=== PATIENT | male | born 1950 | race Hispanic/Latino ===

== ENCOUNTER 2016-04-29 01:14 | Inpatient (IN) | payer MEDICARE, OTHER ==
[2016-04-29 01:26] VITALS: BMI 33.5
--- NOTE | 2016-04-29 01:37 | ED PDOC ---
Arrival/HPI - General Chief Complaint: Weakness/Neurological Deficit Time Seen by Provider: 04/29/16 01:16 Historian: Patient - History of Present Illness Narrative History of Present Illness (Text): 04/29/16 01:37 Saad Ackerman is a 65 year old male, whose past medical history includes hypertension, diabetes, bladder cancer, and pancreatic cancer, who presents to the ED brought in by EMS accompanied by complaining of generalized weakness. Patient reports tonight he has been experiencing generalized weakness with associated watery diarrhea. notes yesterday patient fell at home while walking, but denies any loss of consciousness, fever, or chills. Patient also denies any chest pain, shortness of breath, abdominal pain, nausea, vomiting, urinary symptoms, back pain, neck pain, headache, dizziness, or any other complaints. Time/Duration: 24 hours (yesterday) Symptom Onset: Gradual Symptom Course: Unchanged Activities at Onset: Rest, Light Context: Home Past Medical History - Provider Review Nursing Documentation Reviewed: Yes - Infectious Disease Hx of Infectious Diseases: None - Cardiac Hx Hypertension: Yes - Neurological HX Cerebrovascular Accident: Yes - Endocrine/Metabolic Hx Diabetes Mellitus Type 2: Yes - Hematological/Oncological Hx Cancer: Yes (Bladder & Pancreatic CA) - Genitourinary/Gynecological Hx Bladder Cancer: Yes Other/Comment: + Urinary Catheter - Psychiatric Hx Substance Use: No - Anesthesia Hx Anesthesia: Yes Hx Anesthesia Reactions: No Hx Malignant Hyperthermia: No Family/Social History - Physician Review Nursing Documentation Reviewed: Yes Family/Social History: No Known Family HX Smoking Status: Former Smoker Hx Alcohol Use: Yes Frequency of alcohol use: Socially Hx Substance Use: No Allergies/Home Meds Allergies/Adverse Reactions: Allergies pcn Allergy (Uncoded 04/29/16 01:42) DIZZINESS Home Medications: Home Meds Medication Instructions Recorded Confirmed Amlodipine/Valsartan/Hcthiazid 1 tab PO DAILY 04/29/16 04/29/16 [[id number] 5-160-12.5 mg] MetFORMIN [glucoPHAGE] 1 tab PO BID 04/29/16 04/29/16 Review of Systems - Physician Review All systems were reviewed & negative as marked: Yes - Review of Systems Constitutional: Other (+generalized weakness). absent: Fevers Eyes: Normal ENT: Normal Respiratory: Normal. absent: SOB, Cough Cardiovascular: Normal. absent: Chest Pain Gastrointestinal: Diarrhea Genitourinary Male: Normal. absent: Dysuria, Frequency, Hematuria, Urinary Output Changes Musculoskeletal: Normal. absent: Back Pain, Neck Pain Skin: Normal. absent: Rash Neurological: Normal. absent: Headache, Dizziness Endocrine: Normal Hemo/Lymphatic: Normal Psychiatric: Normal Physical Exam Vital Signs Reviewed: Yes Vital Signs Temp Pulse Resp BP Pulse Ox 04/29/16 05:33 98 H 20 106/49 L 100 04/29/16 03:00 97.4 F L 124 H 26 H 112/68 90 L Temperature: Afebrile Blood Pressure: Normal Pulse: Regular Respiratory Rate: Normal Appearance: Positive for: Well-Appearing, Non-Toxic, Comfortable Pain Distress: None Mental Status: Positive for: Alert and Oriented X 3 - Systems Exam Head: Present: Atraumatic, Normocephalic Pupils: Present: PERRL Extroacular Muscles: Present: EOMI Conjunctiva: Present: Normal Ears: Present: Normal, NORMAL TM, Normal Canal. No: Erythema Mouth: Present: Dry Neck: Present: Normal Range of Motion Respiratory/Chest: Present: Clear to Auscultation, Good Air Exchange. No: Respiratory Distress, Accessory Muscle Use Cardiovascular: Present: Tachycardic Abdomen: Present: Normal Bowel Sounds. No: Tenderness, Distention, Peritoneal Signs Back: Present: Normal Inspection Upper Extremity: Present: Other (Avulsed nail to left thumb). No: Cyanosis, Edema Lower Extremity: Present: Normal Inspection. No: Edema Neurological: Present: GCS=15, CN II-XII Intact, Speech Normal Skin: Present: Warm, Dry, Pale. No: Rashes Psychiatric: Present: Alert, Oriented x 3, Normal Insight, Normal Concentration Medical Decision Making ED Course and Treatment: 04/29/16 01:37 Impression: 65 y/o male c/o generalized weakness and diarrhea since yesterday. Pt also report a mechanical fall yesterday, no LOC. Plan: -- EKG -- CT Head w/o contrast -- Labs, cardiac enzymes, lipase -- UA -- Reassess and disposition Progress Notes: Reviewed EKG, sinus tachycardia at [address] bpm[address] Non-specific ST/T wave changes. 04/29/16 04:00 Reviewed labs, hemoglobin: 6.1, hematocrit: 19.1. Will order blood type and screen and transfuse pt 04/29/16 04:46 Reviewed radiology, Chest X-ray shows no active disease. 04/29/16 04:[address] Wyman, backup operator, who is aware and agrees with plan. Case discussed with Dr. Juan Francisco Mariano, who is aware and agrees with plan. Accepts pt in to his service. Pt will be admitted to the ICU for dehydration, renal failure , sepsis, anemia, and pancreatic/bladder cancer. 04/29/16 05:03 Lactate: 11.3, Code Sepsis called. 04/29/16 05:19 Case discussed with medical billing specialist zone manager, who is aware and agrees with plan. 04/29/16 05:[address] Buckley, covering for Dr. Delgado (pt's front end software engineer/ oncoloigist), who agrees with management. - Critical Care Critical Care Minutes: 60 minutes - Lab Interpretations Lab Results: 04/29/16 02:40 04/29/16 02:40 Lab Results 04/29/16 05:22: Urine Color Yellow, Urine Appearance Cloudy, Urine pH 8.5, Ur Specific [place] 1.015, Urine Protein 30 H, Urine Glucose (UA) Negative, Urine Ketones Negative, Urine Blood Large H, Urine Nitrate Negative, Urine Bilirubin Negative, Urine Urobilinogen 0.2, Ur Leukocyte Esterase Large H, Urine RBC 1 - 3 , Urine WBC 2 - 5, Ur Epithelial Cells 0 - 2, Urine Bacteria Many 04/29/16 04:00: pO2 40, VBG pH 7.23 L, VBG pCO2 27.0 L, VBG HCO3 11.3 L, VBG Total CO2 12.1 L, VBG O2 Sat (Calc) 64.0, VBG Base Excess -14.7 L, VBG Potassium 3.9, Sodium 134.0, Chloride 99.0, Glucose 112 H, Lactate 11.3 H*, FiO2 21.0, Venous Blood Potassium 3.9, Blood Type Pending, Antibody Screen Pending, BBK History Checked No verified bt 04/29/16 02:40: WBC 10.8 D, RBC 2.06 L, Hgb 6.1 L* D, Hct 19.1 L*, MCV 92.7, MCH 29.6, MCHC 31.9, RDW 20.6 H, Plt Count 41 L*, PT 14.4 H, INR 1.33 H, APTT 29.7, Sodium 135, Chloride 95 L, Potassium 3.9, Carbon Dioxide 12 L, Anion Gap 32 H, BUN 87 H, Creatinine 5.7 H, Est GFR ( Amer) 12, Est GFR (Non-Af Amer) 10, Random Glucose 129 H, Calcium 6.8 L*, Total Bilirubin 0.7, AST 106 H, ALT 41, Alkaline Phosphatase 447 H, Lactate Dehydrogenase 697, Total Creatine Kinase 2636 H, CK-MB (CK-2) 15.9 H, CK-MB (CK-2) % 0.6 L, Troponin I 0.11, Total Protein 5.7 L, Albumin 2.4 L, Globulin 3.3, Albumin/Globulin Ratio 0.7 L, Lipase 13 L I have reviewed the lab results: Yes - RAD Interpretation Radiology Orders: 04/29/16 01:40 HEAD W/O CONTRAST [CT] Stat 04/29/16 03:46 CHEST PORTABLE [RAD] Stat Facetor: ED Physician - EKG Interpretation Interpreted by ED Physician: Yes Type: 12 lead EKG - Medication Orders Current Medication Orders: Meropenem 1 gm/ Sodium (Chloride) 100 mls @ 100 mls/hr IVPB STAT STA PRN Reason: Protocol Stop: 04/29/16 06:22 Discontinued Medications Sodium Chloride 2,000 ml/ IV (SUPPLIES) 2,000 mls @ 6,722.22 mls/hr IV ONCE ONE PRN Reason: 60 ML/KG/HR Stop: 04/29/16 05:02 Last Admin: 04/29/16 05:26 Dose: 6,722.22 MLS/HR eMAR Start Stop Document 04/29/16 05:26 MR (Rec: 04/29/16 05:27 [id number]) Intravenous Solution Start Date 04/29/16 Start Time 05:26 End Date 04/29/16 End time 05:56 Total Infusion Time 30 Sodium Chloride (Sodium Chloride 0.9%) 1,000 mls @ 999 mls/hr IV .Q1H1M STA Stop: 04/29/16 05:00 Last Admin: 04/29/16 04:25 Dose: 999 MLS/HR eMAR Start Stop Document 04/29/16 04:25 MR (Rec: 02/26/17 05:25 MR [id number]) Intravenous Solution Start Date 04/29/16 Start Time 04:25 End Date 04/29/16 End time 05:25 Total Infusion Time 60 - Scribe Statement The provider has reviewed the documentation as recorded by the Lupis [place] Provider Attestation: All medical record entries made by the Scribjanine were at my direction and personally dictated by me. I have reviewed the chart and agree that the record accurately reflects my personal performance of the history, physical exam, medical decision making, and the department course for this patient. I have also personally directed, reviewed, and agree with the discharge instructions and disposition. Disposition/Present on Arrival - Present on Arrival Any Indicators Present on Arrival: No History of DVT/PE: No History of Uncontrolled Diabetes: No Urinary Catheter: No History of Decub. Ulcer: No History Surgical Site Infection Following: None - Disposition Have Diagnosis and Disposition been Completed?: Yes Diagnosis: Anemia, Dehydration, Sepsis, Pancreatic cancer, Bladder cancer, Renal insufficiency Disposition: HOSPITALIZED Disposition Time: 05:00 Patient Plan: Admission Patient Problems: Current Active Problems Problem Status Diagnosed Anemia Acute Bladder cancer Acute Dehydration Acute Pancreatic cancer Acute Renal insufficiency Acute Sepsis Acute Condition: GUARDED
[2016-04-29 02:51] LABS: MEAN CELL VOLUME 92.7 fL (80.0-105.0); MEAN CORPUSCULAR HEMOGLOBIN 29.6 pg (25.0-35.0); MEAN CORPUSCULAR HGB CONC 31.9 g/dl (31.0-37.0); RED CELL DISTRIBUTION WIDTH 20.6 % (11.5-14.5); WHITE BLOOD COUNT 10.8 10^3/ul (4.5-11.0)
[2016-04-29 02:59] LABS: HEMATOCRIT 19.1 % (42.0-52.0); PLATELET COUNT 41 10^3/uL (120.0-450.0)
[2016-04-29 03:03] LABS: INR 1.33 (0.93-1.08); PARTIAL THROMBOPLASTIN TIME 29.7 Seconds (23.7-30.8)
[2016-04-29 03:18] LABS: ALB/GLOB RATIO 0.7 (1.1-1.8); BILIRUBIN,TOTAL 0.7 mg/dL (0.2-1.3); POTASSIUM 3.9 mmol/L (3.6-5.0); TOTAL PROTEIN 5.7 g/dL (5.8-8.3)
[2016-04-29 03:29] LABS: TROPONIN I 0.11 ng/mL
[2016-04-29 03:35] LABS: CALCIUM 6.8 mg/dL (8.4-10.5)
[2016-04-29] MEDS ORDERED: Sodium Chloride 0.9% 1,000 ML IV STA (04:00)
[2016-04-29 04:28] LABS: VENOUS BLOOD GAS BASE EXCESS -14.7 mmol/L (0.0-2.0); VENOUS BLOOD PH 7.23 (7.32-7.43)
[2016-04-29] MEDS ORDERED: Meropenem 1 GM in Sodium Chloride 0.9% 100 ML IVPB STA (05:23)
[2016-04-29 05:49] LABS: PH,URINE 8.5 (4.7-8.0); URINE BILIRUBIN NEGATIVE (NEGATIVE); URINE BLOOD LARGE (NEGATIVE); URINE GLUCOSE (UA) NEGATIVE (NEGATIVE); URINE KETONE NEGATIVE (NEGATIVE); URINE LEUKOCYTE ESTERASE LARGE Leu/uL (NEGATIVE); URINE PROTEIN 30 mg/dL (<30 mg/dL); URINE UROBILINOGEN 0.2 E.U./dL (<1 E.U./dL)
[2016-04-29 05:56] LABS: URINE APPEARANCE CLOUDY (CLEAR); URINE COLOR YELLOW (YELLOW)
[2016-04-29 06:01] LABS: URINE EPITHELIAL CELLS 0 - 2 /hpf (0-5)
[2016-04-29 06:02] LABS: URINE BACTERIA MANY (NEG)
[2016-04-29 07:47] LABS: VENOUS BLOOD GAS BASE EXCESS -13.8 mmol/L (0.0-2.0); VENOUS BLOOD PH 7.22 (7.32-7.43)
--- NOTE | 2016-04-29 08:56 | CP.PCM.CON ---
<Brannon Greenberg - Last Filed: 04/29/16 10:37> History of Present Illness - History of Present Illness History of Present Illness: ICU Consult Note for Dr. Jeffrey 65 y/o M with PMH of Pancreatic Ca, Bladder Cancer, HTN, and DM presents to the ED for a 3 day history of generalized weakness and fatigue. Pt was initially brought in by his . Pt states he recently underwent chemotherapy and radiation in on 04/13. Pt also reports having a abdomen/pelvis CT with IV and oral contrast on 04/26. Pt states he began feeling weak 3 days ago at home. During this time he admits to decrease in oral intake. After speaking with the patients , she reports the patient falling down 3 days ago and being too weak to get up. Over the past several days before this fall, pt's admits to pt feeling well, with no complaints and weakness. Pt has also had decreased urine output over the past several days. Pt's called the oncologist, Dr. Delgado, who recommended the pt be brought to the hospital if he did not improve over the next several days. Pt also has had multiple episodes of diarrhea over the past few months, but has become worse since his CT scan last week. Denies CP , SOB, Nausea, vomiting, fevers, chills. PMH: As stated above Surgical Hx: Pancreatic surgery Social Hx: Former smoker, denies alcohol or illicit drug use. Allergies: Penicillin Medications: Metformin, Combination of amlodipine, valsartan, HCTZ Review of Systems - Review of Systems Review of Systems: As per HPI Past Patient History - Infectious Disease Hx of Infectious Diseases: None - Past Social History Smoking Status: Former Smoker - CARDIAC Hx Hypertension: Yes - NEUROLOGICAL HX Cerebrovascular Accident: Yes - ENDOCRINE/METABOLIC Hx Diabetes Mellitus Type 2: Yes - HEMATOLOGICAL/ONCOLOGICAL Hx Cancer: Yes (Bladder & Pancreatic CA) - GENITOURINARY/GYNECOLOGICAL Hx Bladder Cancer: Yes Other/Comment: + Urinary Catheter - PSYCHIATRIC Hx Substance Use: No - SURGICAL HISTORY Hx Surgeries: No - ANESTHESIA Hx Anesthesia: Yes Hx Anesthesia Reactions: No Hx Malignant Hyperthermia: No Meds Allergies/Adverse Reactions: Allergies Allergy/AdvReac Type Severity Reaction Status Date / Time pcn Allergy DIZZINESS Uncoded 04/29/16 01:42 Physical Exam - Constitutional Appears: Non-toxic, No Acute Distress - Head Exam Head Exam: ATRAUMATIC, NORMAL INSPECTION, NORMOCEPHALIC - Eye Exam Eye Exam: EOMI, Normal appearance - ENT Exam ENT Exam: Mucous Membranes Dry - Neck Exam Neck exam: Positive for: Normal Inspection. Negative for: Lymphadenopathy - Respiratory Exam Respiratory Exam: Clear to Auscultation Bilateral, NORMAL BREATHING PATTERN. absent: Rhonchi, Wheezes - Cardiovascular Exam Cardiovascular Exam: Tachycardia, +S1, +S2 - GI/Abdominal Exam GI & Abdominal Exam: Normal Bowel Sounds, Soft. absent: Tenderness - Extremities Exam Extremities exam: Positive for: pedal edema. Negative for: calf tenderness Additional comments: Chronic stasis dermatitis changes b/l lower extremities - Neurological Exam Neurological exam: Alert, CN II-XII Intact, Oriented x3 - Psychiatric Exam Psychiatric exam: Normal Affect, Normal Mood - Skin Skin Exam: Dry, Intact, Normal Color, Warm Results - Vital Signs Recent Vital Signs: Last Vital Signs Temp 97.9 F 04/29/16 08:26 Pulse 103 H 04/29/16 08:26 Resp 22 04/29/16 08:26 BP 92/48 L 04/29/16 08:26 Pulse Ox 100 04/29/16 07:22 - Labs Result Diagrams: 04/29/16 02:40 04/29/16 02:40 Labs: Laboratory Results - last 24 hr 04/29/16 07:39 pO2 53 VBG pH 7.22 L VBG pCO2 31.0 L VBG HCO3 12.7 L VBG Total CO2 13.7 L VBG O2 Sat (Calc) 84.3 H VBG Base Excess -13.8 L VBG Potassium 3.9 Sodium 136.0 Chloride 102.0 Glucose 111 H Lactate 8.5 H* FiO2 21.0 Venous Blood Potassium 3.9 Assessment & Plan - Assessment and Plan (Free Text) Plan: 65 y/o M with PMH of Pancreatic Ca, Bladder Cancer, HTN, and DM presents to the ED with dehydration, anemia, UTI, and acute renal failure complicated by sepsis. Pt was found to have hg of 6.1 and was transfused 1 unit of PRBCs in ED. Creatinine increased from previous baseline determined last year. UA shows large amount of leukocyte esterase and many bacteria. Pt will be admitted to ICU for further care and management. Neuro: AAO x3 Neurochecks q6h Monitor for acute mental status change Cardio: Hemodynamically stable Keep MAP >65 Will hold home BP meds at this time Pulm: No respiratory distress Nasal cannula Continue to keep O2 sat >90% GI: GI prophylaxis Consistent carbohydrate diet Nephro: NS @ 150 cc/hr Will start Vancomycin and continue Merrem to cover for UTI Maintain euvolemia Strict I's and O's Replete electrolytes as needed Consider Nephrology consult ID: Afebrile, no leukocytosis although patient may not have adequate immune response due to recent chemotherapy and radiation Start Vancomycin and Merrem in the setting of sepsis Follow blood and urine cultures Maintain normothermia Heme: Thrombocytopenia likely secondary to chemotherapy Hg at 6.1, transfused 1 unit of PRBCs Will recheck Hg Continue to transfuse to keep Hg above 7 Endo: Insulin sliding scale Check glucose levels q6h Hold home metformin Maintain euglycemia Seen, reviewed, and discussed with attending Yari, PGY-1 <Wojciech ROQUE,Chrissy H - Last Filed: 04/29/16 10:45> Meds - Medications Medications: Current Medications Vancomycin HCl 1.5 gm/ Sodium (Chloride) 500 mls @ 250 mls/hr IVPB DAILY WIL PRN Reason: Protocol Sodium Chloride (Sodium Chloride 0.9%) 1,000 mls @ 150 mls/hr IV .Q6H40M WIL Insulin Human Lispro (Humalog Low) 0 units SC ACHS WIL PRN Reason: Protocol Pantoprazole Sodium (Protonix Inj) 40 mg IVP DAILY WIL Results - Vital Signs Recent Vital Signs: Last Vital Signs Temp 97.8 F 04/29/16 10:36 Pulse 100 H 04/29/16 10:36 Resp 22 04/29/16 10:36 BP 94/49 L 04/29/16 10:36 Pulse Ox 97 04/29/16 10:36 - Labs Result Diagrams: 04/29/16 02:40 04/29/16 02:40 Labs: Laboratory Results - last 24 hr 04/29/16 07:39 pO2 53 VBG pH 7.22 L VBG pCO2 31.0 L VBG HCO3 12.7 L VBG Total CO2 13.7 L VBG O2 Sat (Calc) 84.3 H VBG Base Excess -13.8 L VBG Potassium 3.9 Sodium 136.0 Chloride 102.0 Glucose 111 H Lactate 8.5 H* FiO2 21.0 Venous Blood Potassium 3.9 Attending/Attestation - Attestation I have personally seen and examined this patient.: Yes I have fully participated in the care of the patient.: Yes I have reviewed all pertinent clinical information: Yes Notes (Text): 04/29/16 10:41 65 y/o M for which was called to see in the ER due to code sepsis Pt reports 1 week hx of poor p.o intake, loose stools and dehydration . Chemotherapy 2 weeks prior No fevers at home , chills of complaints outside of lethargy . Would start empiric abx w/ Vancomycin and Meropenum, f/u blood cx, urine cx etc 3-4 L on N.S to be given, lu placed and output improving with i.v fluids. Urine noted to have LE positive Post chemo likely pancytopenia, hgb and platelets low. Transfuse 1 unit prbc , keep HGB>7 platelets > 20K unless bleeding I.D oncology consults pending per PCP. Most work up was done in [facility] Plan to be admitted to the ICU cc time 72 min
--- NOTE | 2016-04-29 11:19 | CT ---
PROCEDURE: CT HEAD WITHOUT CONTRAST. HISTORY: weak/fall COMPARISON: None available. TECHNIQUE: Axial computed tomography images were obtained through the head/brain without intravenous contrast. Radiation dose: Total exam DLP = 1548.47 mGy-cm. Examination limited due to patient motion artifact. FINDINGS: HEMORRHAGE: No intracranial hemorrhage. BRAIN: No mass effect or edema. Right frontoparietal encephalomalacia most likely secondary to old right MCA territory infarct. No evidence of acute infarct. VENTRICLES: Unremarkable. No hydrocephalus. CALVARIUM: Unremarkable. PARANASAL SINUSES: Minimal chronic ethmoid and left maxillary sinusitis. MASTOID AIR CELLS: Unremarkable as visualized. No inflammatory changes. OTHER FINDINGS: None. IMPRESSION: Probable old right MCA territory infarct. No evidence of intracranial mass, hemorrhage or acute infarct. Minimal chronic ethmoid and left maxillary sinusitis.
--- NOTE | 2016-04-29 12:09 | RAD ---
HISTORY: Sepsis Patient COMPARISON: No prior. FINDINGS: LUNGS: No active pulmonary disease. PLEURA: No significant pleural effusion identified, no pneumothorax apparent. CARDIOVASCULAR: Normal heart size. Right central venous infusion port. OSSEOUS STRUCTURES: No significant abnormalities. VISUALIZED UPPER ABDOMEN: Normal. OTHER FINDINGS: None. IMPRESSION: No active disease.
[2016-04-29] MEDS: Vancomycin 1.5 GM in Sodium Chloride 0.9% 500 ML IVPB SCH (12:16)
[2016-04-29] MEDS: Insulin Lispro (humaLOG) LOW Coverage SC SCH ×3 (13:01→22:06)
[2016-04-29 16:31] LABS: POTASSIUM 3.7 mmol/L (3.6-5.0)
[2016-04-29 16:32] LABS: MEAN CELL VOLUME 83.8 fL (80.0-105.0); MEAN CORPUSCULAR HEMOGLOBIN 29.6 pg (25.0-35.0); MEAN CORPUSCULAR HGB CONC 35.3 g/dl (31.0-37.0); RED CELL DISTRIBUTION WIDTH 18.1 % (11.5-14.5); WHITE BLOOD COUNT 13.1 10^3/ul (4.5-11.0)
[2016-04-29 16:34] LABS: HEMATOCRIT 20.7 % (42.0-52.0); PLATELET COUNT 16 10^3/uL (120.0-450.0)
[2016-04-29 16:40] LABS: CALCIUM 5.7 mg/dL (8.4-10.5)
--- NOTE | 2016-04-29 17:02 | HP ---
I saw the patient in the intensive care unit, resting in bed, a little shaky. He is telling me about his alcohol drinking and that he lost a family member who and he also fell. He has been weak, watery diarrhea, difficult to walk. He has just been overall not doing well. He has a big medical h istory of hypertension, diabetes, bladder cancer, pancreatic cancer and I think he drank some alcohol recently from the of a family member. He has done that before with alcohol problems. He has hypertension, history of a CVA, diabetes, bladder and pancreatic cancer. He had a urinary catheter i n the past for bladder cancer. FAMILY HISTORY: There is hypertension in the family. SOCIAL HISTORY: He used to smoke. He does drink alcohol socially. He did recently. ALLERGIES: HE HAS ALLERGY TO PENICILLIN. He also has hypertension. MEDICATIONS: He takes amlodipine, valsartan, hydrochlorothiazide, and Glucophage for his diabetes. I will be putting him on insulin coverage at this time. REVIEW OF SYSTEMS: He is just generalized weak. No acute vision or hearing changes. No shortness o f breath, no chest pain, no coughing, no palpitations. He is having some diarrhea. We will check e stools for C. diff. No problems urinating, no back pain. Skin for the most part is intact. No di zziness or headache, just very weak. Not anxious or depressed. PHYSICAL EXAMINATION: VITAL SIGNS: He has a 97.4 temp, 124 pulse, 26 respiratory rate, 112/68 blood pressure, 98% O2 sat o n room air. HEENT: His head is atraumatic, normocephalic. His extraocular muscles are intact. Pupils equally r eactive to light. Throat is moist. NECK: Supple. HEART: Regular rate, tachy. LUNGS: Decreased breath sounds, but fairly clear. ABDOMEN: Soft, nontender, positive bowel sounds, no guarding, no rebound, no CVA tenderness. EXTREMITIES: Have no edema. NEUROLOGIC: GCS is 15. Cranial nerves II-XII grossly intact. SKIN: Warm and dry, a little pale. NEUROLOGIC: Alert and oriented x 3, maybe a little nervous. He had multiple tests showing multiple problems. He had a CAT scan of his head. It showed old right MCA infarct, no masses, nothing acute right now, chronic sinusitis. He has a white count of 10.8, h emoglobin of 6.1. He will be transfused. Hematocrit is 19.1, platelets are 41. He will have a cons ult with hematology and GI. INR is 1.33. He has a 135 sodium, potassium 3.9, BUN is 87, creatinine 5.7, very dehydrated, acute renal failure. He will be on IV fluids and I will call in renal. His ca lcium is 6.8. I will replace some calcium. Sugar is 129. He will be on insulin coverage. AST is 1 08, ALT is 41, alkaline phosphatase 447. Lactic dehydrogenase is 697, total creatine kinase is 2636. He will have a GI consult. His troponin is 0.11. He will have a consult with cardiology. It is s till indeterminate, but it could be an early NSTEMI. We will repeat more troponins, have a cardiolog y consult. Total protein 5.7. Lipase is 13. Urine has large blood, large leukocytes, many bacteria . He will be on antibiotics. He will have consults with GI, renal, hematology/oncology, cardiology. He is going to be on heparin, insulin, Protonix, IV fluids and vancomycin. He is going to go to e intensive care unit, get 2 units of packed red blood cells transfused, IV fluids. He will be on Li brium just in case he has any agitation. He is severely anemic, urinary tract infection, borderline myocardial infarction, acute renal failure , hypotension, dehydration. Melquiades Dorsey DO cc: [id number] TT: 04/29/2016 17:01:36 en
[2016-04-29] MEDS: Sodium Chloride 0.9% 1,000 ML IV SCH ×2 (17:17→22:37)
--- NOTE | 2016-04-29 20:20 | CON ---
DATE: 04/29/2016 CONSULTATION REQUESTED BY: Dr. Melquiades Dorsey. REASON FOR CONSULTATION: Acute renal failure, lactic acidosis, hypocalcemia, anemia. HISTORY OF PRESENT ILLNESS: The patient is previously unknown to me. This 65- year-old gentleman was brought to [facility]'s Emergency Department earlier this morning by his with a complaint of generalized weakness as well as several days of profuse watery diarrhea. Reportedly, he had fallen at home while ambulating as well the day before. On arrival to the ED, he was noted to have a blood pressure of 112/68 with a heart rate of 124, breathing at 26 breaths per minute and an oxygen saturation of 90%. According to the patient , baseline blood pressure was approximately 140/90. Laboratory studies were notable for normocytic anemia with an H and H of 6.1/19.1 and a platelet count of 41,000. Chemistry panel had a BUN/creatinine of 87/5.7. His last creatinine documented here at [facility] was in 07/2015 and was 1.0. The patient states that this past week he had a CAT scan with IV contrast at [facility] and stated that several days prior to that, he had laboratory studies that had demonstrated normal renal function. Other laboratory studies revealed a CPK of 2636, lactic acid level of 11.3, bicarbonate level of 12 with a corrected anion gap of approximately 36 and a calcium level of 6.8. Troponin I was 0.11. Urinalysis revealed protein of 30 with "large blood" but only 1-3 RBCs per high power field. 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 He also underwent a chest x-ray that did not reveal any acute disease. Of note, the patient states that he has had watery diarrhea for several days now, as well as what he describes as very dark bowel movements for several days as well. He admits that he had been self-medicating with ibuprofen several times per day for fever at home, which he attributed to his diarrhea. It is also noted that at home he had been on valsartan as well as hydrochlorothiazide and metformin also. Additionally, as stated above, he did receive the IV contrast earlier this week. Since having been admitted, the patient has been hypotensive with a blood pressure as low as 71/36, which is well below his baseline. He is also noted to have a history of pancreatic cancer as well as bladder cancer, but it is somewhat unclear when his last chemotherapy was, although he believes he received gemcitabine on 04/13. With respect to his bladder cancer, he denies ever having had an ileal conduit or ileostomy and he denies any decrease in his urine output. He denies any vomiting. REVIEW OF SYSTEMS: Taken across all 10 systems and 14 points is negative unless stated otherwise above. PAST MEDICAL HISTORY: Significant for pancreatic cancer. The patient states that a Whipple procedure was attempted, but had to be canceled. It is unclear why. As stated above, he has received gemcitabine as recently as 04/13. He also states that he has received radiation therapy as well. He also has a known history of bladder cancer, as well as type 2 diabetes mellitus that is non -insulin dependent, and hypertension with a baseline blood pressure approximately 140/90. MEDICATIONS: The patient had been taking at home and prior to admission included amlodipine, valsartan, hydrochlorothiazide 5/160/12.5 orally daily, metformin 1000 mg orally twice daily and ibuprofen several times per day. ALLERGIES: THE PATIENT REPORTEDLY WAS ALLERGIC TO PENICILLIN, WHICH RESULTS IN DIZZINESS. SOCIAL HISTORY: Notable for the patient being . He is currently retired. He used to smoke, but has not for many years. He denies any alcohol use or any illicit drug use. FAMILY HISTORY: Negative for any inheritable renal or electrolyte disorders and was otherwise noncontributory. PHYSICAL EXAMINATION: GENERAL APPEARANCE: I saw the patient lying in bed. He was slurring his words when he spoke with me and was lethargic, although arousable. Beard catheter was in place and he was receiving intravenous fluids (normal saline at 150 mL per hour). VITAL SIGNS: Are as follows: Blood pressure is 88/47, but since admission, it has ranged from a low as 71/36 to a high of 112/68, heart rate is 96, but has ranged from the 90s to approximately 103 beats per minute with monitoring showing sinus rhythm and sinus tachycardia respectively. Oral temperature is 98 degrees and the patient has been afebrile since having been admitted. Respiratory rate is 23, but has ranged from approximately 16-27 breaths since having been admitted and oxygen saturation is 96%, but has ranged from 90%-100% with the patient currently on 2 liters oxygen via nasal cannula. I's and O's have not yet been documented. The remainder of the exam is as follows. HEENT: The patient was normocephalic and atraumatic. There was no sinus tenderness. Conjunctivae were pale, but they were anicteric. NECK: I could not appreciate any jugular venous distention on my exam. CHEST: Lungs smith were auscultated anteriorly and were clear without any rales, rhonchi or wheezing. Diaphragmatic excursion as well as air flow into both lungs smith appeared to be bilaterally symmetrical. CARDIAC: There was a II/ systolic ejection murmur at the right base. ABDOMEN: Soft, mildly protuberant, but nontender. He did have some fullness over his lower abdomen, but Beard catheter was in place. I was unable to appreciate any hepatosplenomegaly. There was no rebounding, guarding or rigidity. He did have a vertical surgical scar that was well healed in the upper abdomen centrally that ran in a cranial caudal direction. EXTREMITIES: Had trace edema. He did have chronic stasis changes with hyperpigmentation of both shins bilaterally. There was no palpable cord. Yoselyn sign was negative. NEUROLOGIC: The patient was nonfocal, although he was slurring his speech and was lethargic as stated above. VASCULAR: Had no bruits. GENITOURINARY: Beard catheter in place. There was no suprapubic tenderness. LABORATORY STUDIES: White count is 10.8, H and H is 6.1/19.1 with a platelet count of 41,000. INR is 1.33 with a PTT of 29.7. Sodium is 135, potassium 3.9 , chloride is 95, bicarbonate 12, BUN/creatinine is 87/5.7, glucose of 129. Anion gap was 32, but after correcting for the albumin of 2.4, it corrects to approximately 36. Calcium was 6.8, but after correcting the albumin of 2.4, corrects to 8.0, which is still low. Total bilirubin is 0.7, AST/ALT is 106/41 , alkaline phosphatase is 447. LDH is 697. CPK is 2636. Troponin I is 0.11. Lipase was 13. Urinalysis was yellow, cloudy with a pH of 8.5, specific gravity of 1.015, protein of 30, large blood, but only 1-3 RBCs per high power field and large leukocyte esterase. Imaging is as stated above. IMPRESSION AND PLAN: The patient is a 65-year-old obese gentleman (BMI 33.5 kg/ m2) with type 2 diabetes mellitus that is noninsulin dependent, hypertension, history of pancreatic cancer for which Whipple had been attempted in the past, but had to be aborted for unclear reasons, but for which he received chemotherapy as recently as 04/13 with gemcitabine, bladder cancer with history of radiation therapy, hypertension with baseline blood pressure of 140/90, who is admitted with generalized weakness as well as several days of diarrhea and dark stool. He is noted to have acute kidney injury with lactic acidosis, hypocalcemia, anemia and rhabdomyolysis. Of note, he had also fallen at home, but without any loss of consciousness. As per the patient, he did have a CT scan with intravenous and oral contrast earlier this week and he states that his labs were checked several days prior to this study and that they were within normal limits and thus, he was allowed to proceed with the IV contrast study. Thus, his renal dysfunction is certainly acute even though his last documented creatinine here at [facility] was in 07/2015 and was 1.0. The patient is also noted to be hypotensive as well. With respect to the etiology of his acute kidney injury, it could very well be secondary to his hypotension as well as a febrile illness that he describes having taken prior to admission. He does report several days of copious diarrhea as well as dark bowel movements and the patient likely became hypovolemic from diarrhea as well as perhaps an upper gastrointestinal bleed (since he has had dark bowel movements). In the setting of becoming hypovolemic, he continued to take his hydrochlorothiazide, which rendered him further hypovolemic. In combination with his valsartan, he was unable to maintain his GFR and developed acute kidney injury. Also, he was self-medicating at home with ibuprofen, and NSAIDs can result in intrarenal vasoconstriction which also contributed to his acute kidney injury. Indeed, the NSAID may also have contributed to what sounds like a gastrointestinal bleed as well. In addition to these factors for acute kidney injury, the patient is also noted to have rhabdomyolysis with a CPK of 2636, which may very well have been secondary to his fall and thus, there is also a component of pigment nephropathy from rhabdomyolysis contributing to his acute kidney injury. His urinalysis does reveal large blood with only 1-3 RBCs per high power field and this represents myoglobinuria. Also possibly contributing to his acute kidney injury, we would need to consider thrombotic microangiopathy associated with gemcitabine, especially since he is anemic and thrombocytopenic. Arguing against this, however, is the fact that his LDH was within normal limits and with thrombotic microangiopathy, I would have expected his LDH to be elevated. Since he has been transfused packed red blood cells, if we were to recheck his LDH, it may be falsely high, and if we were to check his haptoglobin, it may be falsely low. He would likely benefit from a peripheral blood smear. Of note, the patient also had lactic acidosis on presentation. He has been hypotensive since having been in the ED and the lactic acidosis may very well represent type A lactic acidosis from hypotension ; however, if he continued to take his metformin while he had acute kidney injury and if he continued to take it even with his IV contrast study, he may also have a component of type B lactic acidosis. For now, we will obviously need to hold his metformin, but since his acute kidney injury is improving and since his lactic acid level has decreased from 11.3-2.8 now, he does not require dialysis for the purposes of extracorporeal removal of metformin. To treat the component of type A lactic acidosis, I would continue to give this patient intravenous fluids and is receiving normal saline at 150 mL per hour. Given the fact that he appears to have chronic stasis changes over both lower extremities. I suspect that he may have a history of congestive heart failure and therefore we will need to monitor him closely to see that he does not develop signs of volume overload. With respect to his hypocalcemia, this may very well be secondary to his acute kidney injury and rhabdomyolysis with calcium precipitating his damaged muscle. We will check a phosphorus level with his next set of labs, however, since hyperphosphatemia (from acute kidney injury as well as from rhabdomyolysis) can result in reciprocal hypocalcemia. His calcium corrects to 8.0 and, therefore, at present, he does not need separate calcium repletion. As for his anemia, as stated, it may be secondary to gastrointestinal bleed given the fact that he does report dark stool and we will check his stool for occult blood. Of note, he was taking an NSAID prior to admission for symptomatic relief of fever and he is thrombocytopenic and now in the intensive care unit and therefore we do need to consider gastrointestinal bleeding as well. I agree with transfusing the patient to a hemoglobin of 7-8 grams per deciliter and since having been admitted, he has received 2 units of packed red blood cells. If he is found to be actively bleeding, I would also give this patient platelets as well since they are currently 41 and since there may be some uremic platelet dysfunction also contributing to an increase in his bleeding diathesis. Coagulation studies are within normal limits, but given his history of fever at home as well as anemia and now thrombocytopenia, we will check a fibrinogen as well with his next set of labs. With respect to the patient's rhabdomyolysis, I suspect it is secondary to the fall that he had at home, but we are checking his phosphorus since profound hypophosphatemia can result in rhabdomyolysis. It is surprising that with this degree of acute kidney injury, his potassium is only 3.9 and I would expect his potassium to be much higher on the basis of both the acute kidney injury as well as his metabolic acidosis and this suggests to me that the patient may become profoundly hypokalemic at home from diarrhea as well as concurrent use of hydrochlorothiazide and in fact severe hypokalemia can also contribute to rhabdomyolysis. Hypomagnesemia can also contribute to rhabdomyolysis and since hypomagnesemia may also develop from diarrhea or from thiazide diuretics, we will also check a magnesium level with his next set of labs as well. With respect to the patient's acid base status, on arrival, he had an anion gap metabolic acidosis. His anion gap corrects to approximately 36 after taking into account the fact that his albumin is 2.4 and thus, in addition to his anion gap metabolic acidosis, he also has a metabolic alkalosis. This may be explaining his elevated urine pH at present. I will check a urine chloride in this patient as well as urine sodium, creatinine and urea nitrogen to confirm that he is prerenal and to confirm a low chloride, which would render him volume responsive with respect to his metabolic alkalosis. The etiology of the metabolic alkalosis at present is not clear at this time. Since the patient's venous pH is 7.22, his arterial pH is higher and , therefore, at present, there is no solid indication for alkaline intravenous fluids, but we can continue the normal saline at 150 mL per hour. I suspect we will need to add potassium to his intravenous fluids shortly, however. If on his next set of laboratory studies his bicarbonate does not increase and his anion gap is not decreased, at that time we may have to alkalinize his IV fluid somewhat, but since his lactic acidosis appears to be improving, I believe we can probably just continue him on the normal saline. Of note, we will also repeat his CPK with his next set of labs to ensure that it is decreasing with aggressive volume. With respect to deep venous thrombosis prophylaxis, the patient is certainly at high risk by virtue of his 2 underlying malignancies. He is already thrombocytopenic and may have evidence of a gastrointestinal bleed by history of melena and therefore we will discontinue his subcutaneous heparin. Instead, we will order sequential compression devices for deep venous thrombosis prophylaxis. As for gastrointestinal prophylaxis, since the patient may have had gastrointestinal bleeding at home, I would certainly continue pantoprazole 40 mg intravenously daily and obtain a gastrointestinal evaluation as well. Of note, he did report having fevers at home and at this point, these are of unclear etiology, but a urine pH of 8.5 also suggests the possibility of staghorn calculus, which would have been apparent on a CT scan of his abdomen and pelvis and hopefully the results of these can be provided on Saturday by the patient's primary care physician. Obviously, we will hold any further NSAIDs. For now, we will keep the patient n.p.o. as well given possible gastrointestinal bleeding. I would continue patient's Beard catheter in place as well. I will be following this complex patient closely for the above complex medical problems. More than 35 minutes were spent in the care of this ICU patient today. Barry Shahid MD, MARIO cc: [id number] TT: 04/29/2016 20:19:23 Confirmation # [id number] Dictation # [id number] david DELGADO
[2016-04-29 21:28] LABS: MEAN CELL VOLUME 82.9 fL (80.0-105.0); MEAN CORPUSCULAR HEMOGLOBIN 29.6 pg (25.0-35.0); MEAN CORPUSCULAR HGB CONC 35.7 g/dl (31.0-37.0); RED CELL DISTRIBUTION WIDTH 18.1 % (11.5-14.5); WHITE BLOOD COUNT 9.1 10^3/ul (4.5-11.0)
[2016-04-29 21:38] LABS: HEMATOCRIT 19.9 % (42.0-52.0)
[2016-04-29 21:39] LABS: PLATELET COUNT 14 10^3/uL (120.0-450.0)
--- NOTE | 2016-04-29 21:45 | CARD ---
APPROVED REPORT EKG Measurement Heart [id number] <Conclusion> Sinus tachycardia Otherwise normal ECG
[2016-04-30] MEDS: Sodium Chloride 0.9% 1,000 ML IV SCH (05:13)
[2016-04-30 06:11] LABS: MEAN CELL VOLUME 83.8 fL (80.0-105.0); MEAN CORPUSCULAR HEMOGLOBIN 29.7 pg (25.0-35.0); MEAN CORPUSCULAR HGB CONC 35.4 g/dl (31.0-37.0); RED CELL DISTRIBUTION WIDTH 17.7 % (11.5-14.5); WHITE BLOOD COUNT 7.4 10^3/ul (4.5-11.0)
[2016-04-30 06:26] LABS: HEMATOCRIT 22.3 % (42.0-52.0); PLATELET COUNT 16 10^3/uL (120.0-450.0)
[2016-04-30 06:34] LABS: ALB/GLOB RATIO 0.6 (1.1-1.8); BILIRUBIN,TOTAL 0.8 mg/dL (0.2-1.3); MAGNESIUM 1.8 mg/dL (1.7-2.2); PHOSPHOROUS 6.2 mg/dL (2.5-4.5); POTASSIUM 3.4 mmol/L (3.6-5.0); TOTAL PROTEIN 4.9 g/dL (5.8-8.3)
--- NOTE | 2016-04-30 06:44 | CP.PCM.CON ---
<Scott Fraser - Last Filed: 04/30/16 10:16> History of Present Illness - History of Present Illness History of Present Illness: Medicine PGY1 - GI service cc: generalized weakness HPI: Patient is a 65yo male with past medical history of pancreatic cancer, bladder cancer, hypertension and DMT2 that presented to [facility] c/o generalized weakness and fatigue associated with multiple episodes of dark- colored, watery diarrhea for 3 days prior to presentation. Patient reported that he had felt so weak that he had fallen at home. He denied loss of consciousness and post-ictal state. He reported that his last chemo/radiation treatment was on 04/13 and that he had undergone a CT with IV and oral contrast on 04/26. On arrival to the ED, vitals were as follows: temperature 97.4F, pulse 124bpm, blood pressure 112/68, respiratory rate 26, oxygen saturation 90% on room air. Labs were notable for an H/H of 6.1/19.1 for which he was transfused 2 units (most recent hgb 7.1), platelet count of 41,000, lactate of 11.3, BUN/ Creatinine of 87/5.7 (baseline Cr ~1.0), AST 106, ALKP 447, CK of 2636, UA positive for protein of 30, large blood and large leukocyte esterase. Head CT revealed old right MCA infarct, no evidence of intracranial mass, hemorrhage or acute infarct. Patient denied chest pain, palpitations, SOB, focal weakness, numbness, tingling, dysuria, frequency, urgency. The patient was subsequently admitted to the ICU for further evaluation and treatment. GI service consulted for evaluation of anemia. 12 point ROS as per HPI, otherwise negative PMHx: Pancreatic Ca, Bladder Ca, HTN, DMT2 PSHx: Whipple procedure that was aborted due to tumor positioning around portal vein Allergies: Penicillin Family Hx: Mother: Coronary thrombosis; Father: Lung Ca; Brother: Esophageal Ca Social Hx: Former tobacco and alcohol use; Denies illicit drugs Endoscopy: EUS 09/16 at [facility]; Denies colonoscopy Review of Systems - Review of Systems Review of Systems: 12point ROS as per HPI otherwise negative Past Patient History - Infectious Disease Hx of Infectious Diseases: None - Past Social History Smoking Status: Former Smoker - CARDIAC Hx Hypertension: Yes - NEUROLOGICAL HX Cerebrovascular Accident: Yes - ENDOCRINE/METABOLIC Hx Diabetes Mellitus Type 2: Yes - HEMATOLOGICAL/ONCOLOGICAL Hx Cancer: Yes (Bladder & Pancreatic CA) - MUSCULOSKELETAL/RHEUMATOLOGICAL Hx Falls: No - GENITOURINARY/GYNECOLOGICAL Other/Comment: + Urinary Catheter - PSYCHIATRIC Hx Substance Use: No - SURGICAL HISTORY Hx Surgeries: No - ANESTHESIA Hx Anesthesia: Yes Hx Anesthesia Reactions: No Hx Malignant Hyperthermia: No Meds Allergies/Adverse Reactions: Allergies Allergy/AdvReac Type Severity Reaction Status Date / Time pcn Allergy DIZZINESS Uncoded 04/29/16 01:42 - Medications Medications: Current Medications Chlordiazepoxide (Librium) 25 mg PO Q8 PRN; Protocol PRN Reason: Agitation Vancomycin HCl 1.5 gm/ Sodium (Chloride) 500 mls @ 250 mls/hr IVPB DAILY [facility]IL PRN Reason: Protocol Last Admin: 04/29/16 12:16 Dose: 250 mls/hr Sodium Chloride (Sodium Chloride 0.9%) 1,000 mls @ 150 mls/hr IV .Q6H40M [facility]IL Last Admin: 04/30/16 05:13 Dose: 150 mls/hr Insulin Human Lispro (Humalog Low) 0 units SC ACHS [facility]IL PRN Reason: Protocol Last Admin: 04/29/16 22:06 Dose: Not Given Pantoprazole Sodium (Protonix Inj) 40 mg IVP DAILY [facility] Physical Exam - Constitutional Appears: No Acute Distress, Unkempt - Head Exam Head Exam: ATRAUMATIC, NORMOCEPHALIC - Eye Exam Eye Exam: EOMI - ENT Exam ENT Exam: Mucous Membranes Dry - Neck Exam Neck exam: Positive for: Normal Inspection - Respiratory Exam Respiratory Exam: Clear to Auscultation Bilateral. absent: Rales, Rhonchi, Wheezes - Cardiovascular Exam Cardiovascular Exam: RRR, +S1, +S2. absent: Diastolic murmur, Gallop, Rubs, Systolic Murmur - GI/Abdominal Exam GI & Abdominal Exam: Distended, Normal Bowel Sounds, Soft. absent: Guarding, Rebound, Rigid, Tenderness - Neurological Exam Neurological exam: Alert, Oriented x3 Additional comments: slurred speech - Psychiatric Exam Psychiatric exam: Normal Affect, Normal Mood - Skin Skin Exam: Dry, Intact, Normal Color, Warm Additional comments: chronic venous stasis b/l lower extremities Results - Vital Signs Recent Vital Signs: Last Vital Signs Temp 98.1 F 04/30/16 04:00 Pulse 94 H 04/30/16 06:00 Resp 27 H 04/30/16 05:54 BP 109/57 L 04/30/16 06:00 Pulse Ox 98 04/30/16 06:00 - Labs Result Diagrams: 04/30/16 05:30 04/30/16 05:30 Labs: Laboratory Results - last 24 hr 04/29/16 04/29/16 04/29/16 07:39 10:25 12:44 WBC RBC Hgb Hct MCV MCH MCHC RDW Plt Count pO2 53 VBG pH 7.22 L VBG pCO2 31.0 L VBG HCO3 12.7 L VBG Total CO2 13.7 L VBG O2 Sat (Calc) 84.3 H VBG Base Excess -13.8 L VBG Potassium 3.9 Sodium 136.0 Chloride 102.0 Glucose 111 H Lactate 8.5 H* FiO2 21.0 Potassium Carbon Dioxide Anion Gap BUN Creatinine Est GFR ( Amer) Est GFR (Non-Af Amer) POC Glucose (mg/dL) 137 H Random Glucose Lactic Acid 2.8 H Calcium Troponin I Venous Blood Potassium 3.9 Ur Random Creatinine Ur Random Sodium Ur Random Urea Nitrogn 04/29/16 04/29/16 04/29/16 13:25 16:10 17:12 WBC 13.1 H D RBC 2.47 L Hgb 7.3 L Hct 20.7 L* MCV 83.8 MCH 29.6 MCHC 35.3 RDW 18.1 H Plt Count 16 L* pO2 VBG pH VBG pCO2 VBG HCO3 VBG Total CO2 VBG O2 Sat (Calc) VBG Base Excess VBG Potassium Sodium 136 Chloride 101 Glucose Lactate FiO2 Potassium 3.7 Carbon Dioxide 18 L Anion Gap 21 H BUN 93 H Creatinine 4.1 H Est GFR ( Amer) 18 Est GFR (Non-Af Amer) 15 POC Glucose (mg/dL) 159 H Random Glucose 148 H Lactic Acid Calcium 5.7 L* Troponin I 0.06 D Venous Blood Potassium Ur Random Creatinine Ur Random Sodium Ur Random Urea Nitrogn 04/29/16 04/29/16 04/30/16 19:50 21:10 05:30 WBC 9.1 D 7.4 RBC 2.40 L 2.66 L Hgb 7.1 L 7.9 L Hct 19.9 L* 22.3 L MCV 82.9 83.8 MCH 29.6 29.7 MCHC 35.7 35.4 RDW 18.1 H 17.7 H Plt Count 14 L* 16 L* pO2 VBG pH VBG pCO2 VBG HCO3 VBG Total CO2 VBG O2 Sat (Calc) VBG Base Excess VBG Potassium Sodium Chloride Glucose Lactate FiO2 Potassium Carbon Dioxide Anion Gap BUN Creatinine Est GFR ( Amer) Est GFR (Non-Af Amer) POC Glucose (mg/dL) Random Glucose Lactic Acid Calcium Troponin I 0.04 D Venous Blood Potassium Ur Random Creatinine 15 Ur Random Sodium 47 Ur Random Urea Nitrogn 448 Assessment & Plan - Assessment and Plan (Free Text) Assessment: 65yo male with history of pancreatic ca, bladder ca, hypertension and DMT2 that presented c/o generalized weakness and fatigue associated with multiple episodes of dark-colored, watery diarrhea for 3 days prior to presentation 1. Normocytic anemia 2. Thrombocytopenia 3. Acute kidney injury 4. Rhabdomyolysis 5. Pancreatic/Bladder Ca 6. Hypertension 7. Diabetes Mellitus type 2 Plan: -Anemia likely secondary to chemo/radiation therapy -Reported use of pepto-bismol which may account for the previous report of dark- colored stool -Will verify chemotherapy agents however presently known to be taking gemcitabine which is known to cause bone marrow suppression -Refused rectal examination, currently denies bloody bowel movements -Continue supportive care -Stool occult blood pending -Maintain hemodynamic stability, will make further recommendations as necessary Patient seen and case discussed with attending, Dr. Klein - Date & Time Date: 04/30/16 Time: 06:38 <Sherif Klein - Last Filed: 04/30/16 12:16> Meds - Medications Medications: Current Medications Chlordiazepoxide (Librium) 25 mg PO Q8 PRN; Protocol PRN Reason: Agitation Sodium Chloride (Sodium Chloride 0.9%) 1,000 mls @ 150 mls/hr IV .Q6H40M [facility] Last Admin: 04/30/16 05:13 Dose: 150 mls/hr Meropenem 1 gm/ Sodium (Chloride) 100 mls @ 100 mls/hr IVPB Q12 WIL PRN Reason: Protocol Stop: 05/14/16 11:31 Insulin Human Lispro (Humalog Low) 0 units SC ACHS [facility] PRN Reason: Protocol Last Admin: 04/30/16 07:51 Dose: Not Given Pantoprazole Sodium (Protonix Inj) 40 mg IVP DAILY [facility] Last Admin: 04/30/16 09:47 Dose: 40 mg Results - Vital Signs Recent Vital Signs: Last Vital Signs Temp 98 F 04/30/16 10:40 Pulse 99 H 04/30/16 11:44 Resp 20 04/30/16 11:00 BP 88/42 L 04/30/16 11:00 Pulse Ox 98 04/30/16 11:00 - Labs Result Diagrams: 04/30/16 05:30 04/30/16 05:30 Labs: Laboratory Results - last 24 hr 04/29/16 04/29/16 04/29/16 10:25 12:44 13:25 WBC RBC Hgb Hct MCV MCH MCHC RDW Plt Count Fibrinogen Sodium Potassium Chloride Carbon Dioxide Anion Gap BUN Creatinine Est GFR ( Amer) Est GFR (Non-Af Amer) POC Glucose (mg/dL) 137 H Random Glucose Lactic Acid 2.8 H Calcium Phosphorus Magnesium Total Bilirubin AST ALT Alkaline Phosphatase Total Creatine Kinase CK-MB (CK-2) CK-MB (CK-2) % Troponin I 0.06 D Total Protein Albumin Globulin Albumin/Globulin Ratio Ur Random Creatinine Ur Random Sodium Ur Random Urea Nitrogn 04/29/16 04/29/16 04/29/16 16:10 17:12 19:50 WBC 13.1 H D RBC 2.47 L Hgb 7.3 L Hct 20.7 L* MCV 83.8 MCH 29.6 MCHC 35.3 RDW 18.1 H Plt Count 16 L* Fibrinogen Sodium 136 Potassium 3.7 Chloride 101 Carbon Dioxide 18 L Anion Gap 21 H BUN 93 H Creatinine 4.1 H Est GFR ( Amer) 18 Est GFR (Non-Af Amer) 15 POC Glucose (mg/dL) 159 H Random Glucose 148 H Lactic Acid Calcium 5.7 L* Phosphorus Magnesium Total Bilirubin AST ALT Alkaline Phosphatase Total Creatine Kinase CK-MB (CK-2) CK-MB (CK-2) % Troponin I Total Protein Albumin Globulin Albumin/Globulin Ratio Ur Random Creatinine 15 Ur Random Sodium 47 Ur Random Urea Nitrogn 448 04/29/16 04/30/16 04/30/16 21:10 05:30 07:13 WBC 9.1 D 7.4 RBC 2.40 L 2.66 L Hgb 7.1 L 7.9 L Hct 19.9 L* 22.3 L MCV 82.9 83.8 MCH 29.6 29.7 MCHC 35.7 35.4 RDW 18.1 H 17.7 H Plt Count 14 L* 16 L* Fibrinogen 556.6 H Sodium 137 Potassium 3.4 L Chloride 106 Carbon Dioxide 19 L Anion Gap 15 BUN 104 H Creatinine 3.6 H Est GFR ( Amer) 21 Est GFR (Non-Af Amer) 17 POC Glucose (mg/dL) Random Glucose 165 H Lactic Acid Calcium 5.2 L* Phosphorus 6.2 H Magnesium 1.8 Total Bilirubin 0.8 AST 71 H ALT 46 Alkaline Phosphatase 165 H Total Creatine Kinase 1418 H CK-MB (CK-2) 6.0 H CK-MB (CK-2) % 0.4 L Troponin I 0.04 D Total Protein 4.9 L Albumin 1.9 L Globulin 3.0 Albumin/Globulin Ratio 0.6 L Ur Random Creatinine Ur Random Sodium Ur Random Urea Nitrogn Attending/Attestation - Attestation I have personally seen and examined this patient.: Yes I have fully participated in the care of the patient.: Yes I have reviewed all pertinent clinical information: Yes Notes (Text): 04/30/16 12:01 I have seen and examined patient with GI fellow and medical charge entry specialist. Agree with above documentation with the following additions. In brief, this is a 65 year old male with history of DM, HTN, obesity, CVA, pancreatic and bladder cancer diagnosed last year who presents to hospital with complaint of progressive generalized weakness along with 3 days of watery diarrhea. On arrival to hospital he was found to be profoundly anemic with thrombocytopenia and was transferred to critical care unit where he is currently seen. He has recently been on combination gemzar and abraxane therapy along with radiation which was recently completed 2 weeks ago at [facility] where he receives ongoing oncologic care. Beginning 3 days ago he began to feel significantly weaker and suffered a fall. During this time he also developed diarrhea, up to 5 episodes daily and took pepto bismol for relief. Following this his stool began to appear dark in color. He denies abdominal pain, nausea , vomiting, fever/chills, weight loss, or rectal bleeding. He does admit to intermittent NSAID use for pain related to cancer. He had an EUS in September 2015 and attempted surgical Whipple which was aborted due to presence of vascular involvement of tumor. No prior colonoscopy. DM / HTN Obesity CVA Pancreatic/bladder cancer - surgically unresectable currently on combination chemotherapy/radiation therapy Weakness - Profound anemia which poses threat to patient life, currently requiring critical care treatment Thrombocytopenia Acute renal insufficiency Bacteremia - Anemia, thrombocytopenia likely secondary to chemotherapeutic agents. Will need to discuss with Dr. Atkinson regarding specific disease management. - Transfuse PRBC and continue to monitor H/H - Obtain stool occult blood - Diet as tolerated - Would suggest H2 vin therapy rather than PPI therapy which has potential to worsen existing thrombocytopenia - Creatinine improving, continue to monitor and follow up nephrology recommendations - CT imaging of abdomen ordered by ID, will follow up results. Continue with antibiotic therapy, monitor blood culture results (currently growing gram negative rods), await sensitivity results - Currently no planned GI interventions in the absence of overt GI bleeding and hemodynamic instability along with significant thrombocytopenia, however patient will require close monitoring and multi disciplinary care.
[2016-04-30 06:59] LABS: CALCIUM 5.2 mg/dL (8.4-10.5)
[2016-04-30] MEDS: Insulin Lispro (humaLOG) LOW Coverage SC SCH ×4 (07:51→21:33)
[2016-04-30] MEDS: Vancomycin 1.5 GM in Sodium Chloride 0.9% 500 ML IVPB SCH (09:45)
[2016-04-30] MEDS ORDERED: Potassium Chloride 10 mEq 100 ML IVPB ONE (09:50)
--- NOTE | 2016-04-30 09:56 | PN ---
DATE: 04/30/2016 The patient seen and examined at bedside. He is comfortable. He talks full sentences. He is not in respiratory or otherwise distress. He did not have any bowel movement, but passing gas well. PHYSICAL EXAMINATION: VITAL SIGNS: Blood pressure 101/53, heart rate 93, respiratory rate 13, oxygen saturation 96% on nasal cannula. HEAD AND NECK: Atraumatic. LUNGS: Clear to auscultation bilaterally. HEART: Regular rate and rhythm. S1, S2 normal. ABDOMEN: Soft, nontender, nondistended. MUSCULOSKELETAL: Some dermal stasis. SKIN: Moist. PSYCHIATRIC: The patient is alert and oriented x 3. NEUROLOGIC: The patient moves all extremities spontaneously. LABORATORIES: WBC 7.4, hemoglobin 7.9, platelet count 16 (discussed the case with Dr. Atkinson, who is the hematology/oncology on case and decision was made to transfuse 1 unit of blood and hold on platelet transfusion at present time). Sodium 137, potassium 3.4, chloride 106, carbon dioxide 19, BUN 104, creatinine 3.6, down from 4.1. Lactic acid 2.8, down from 8.5, AST 71, ALT 46. Troponin x 2 negative. Urine is positive for leukocyte esterase, but negative for urine nitrites. Urine has large blood. VBG 7.22. MEDICATIONS: Regular insulin sliding scale low protocol, Librium p.r.n., Protonix, normal saline 150 mL per hour, vancomycin. ASSESSMENT AND PLAN: This is a 65-year-old gentleman with history of pancreatic cancer, status post chemotherapy on 04/13, who presented with substantial diarrhea and hypovolemic shock. The patient was fluid resuscitated with resolution of lactic acidosis, and yazdanism of hemodynamic stability. At present time, his acute kidney injury is substantially improved. Concern remains of his inadequate response to blood transfusion and widening difference between BUN and creatinine, which may suggest gastrointestinal bleeding. I would maintain hemoglobin level between 7 and 9, I would recommend GI consult ( consult for Dr. Sherif Klein was requested). I would continue to target euvolemia, euglycemia, normothermia and oxygen saturation more than 90%. I would continue with deep venous thrombosis and gastrointestinal prophylaxis. Addendum: blood and urine culture came back GNR positive. Patient is on meropenem, ID service is on board. CT abdo/pelvis are ordered--severe cystitis and pyelonephritis. No typhlitis. Dx: severe sepsis due to UTI, complicated by GNR bacteremia, lactic acidosis, ADILENE, now substantially improved. ccm time 40 min Guanaco Leal MD cc: [id number] TT: 04/30/2016 09:55:31 Confirmation # [id number] Dictation # [id number] en MTDD
--- NOTE | 2016-04-30 10:09 | PN ---
DATE: 04/30/2016 I saw the patient in intensive care unit, bed 1. He is doing a little bit better, but still with mul tiple complaints. He is status post chemoradiation and lots of treatment for his cancers. He is being seen by GI, renal, oncology, and cardiology. PHYSICAL EXAMINATION: VITAL SIGNS: Today are 98 temp, 91 pulse, 92/46 pressure, 20 respiratory rate, 96% O2 sat on room ai r. HEAD: Atraumatic, normocephalic. HEART: Regular rate. LUNGS: Decreased breath sounds, but clear. ABDOMEN: Soft, obese. EXTREMITIES: No edema. MEDICATIONS: He is on insulin, Librium, Protonix, IV fluids, vancomycin. LABORATORY DATA: He has a 7.4 white count, 7.9 hemoglobin. It went from 6.1. He is going to get a couple more units today in the intensive care unit by the parish visitor. His hematocrit is 22.3, and h is platelets are 16 - getting worse. He has a 137 sodium. Potassium is 3.4. We are going to replac e the potassium. BUN is 104 - worse. Creatinine is 3.6 - better. His calcium is low at 5.2. We ar e going to replace the calcium. Magnesium is 1.8. AST is 71. ALT is 46. Alk phos is 165. Total c reatinine kinase 1418. Total protein is 4.9, and his troponins are 0.06 and 0.04. He is being seen by the renal doctor, the parish visitor, and has consults with GI, oncology, hematology , and cardiology. We will continue with aggressive treatment and care. I will replace potassium with a K-rider and sobia ck his labs tomorrow. Melquiades Dorsey DO cc: [id number] TT: 04/30/2016 10:08:26 Confirmation # [id number] Dictation # [id number] fredo
[2016-04-30] MEDS ORDERED: Meropenem 1 GM in Sodium Chloride 0.9% 100 ML IVPB SCH (11:30)
--- NOTE | 2016-04-30 11:40 | CON ---
DATE: 04/30/2016 This is a 65-year-old man who has many medical problems, but specifically it is his pancreatic carcin deng. The patient is being treated at [facility] with Dr. Hopkins for pancreatic carcinoma. W hat he tells me is he has been receiving Gemzar plus Abraxane chemotherapy regimen around 01/2016 and 02/2016. Following this, he started radiation therapy plus Gemzar on a 2 out of 3 weeks regimen. T his combination of radiation therapy/chemotherapy started on 03/01/2016 and continued until about 12/2016. He was supposed to get a CAT scan in another week to determine whether there was response. In any event, he says that during the procedure, he was told that the hemoglobin was marginal, but maryam mehta was able to avoid a transfusion. He is now admitted for 3-4 days' worth of diarrhea and came in ve ry weak, very dehydrated and severely anemic. PHYSICAL EXAMINATION: SKIN: No petechiae, no bruises. HEENT: Anicteric. No mucosal lesions noted and no mucosal bleeding noted. NODES: None palpable in the axillary, cervical, supraclavicular or inguinal regions. LUNGS: Clear at present. No vertebral tenderness. The patient is able to lie flat. ABDOMEN: Shows no liver, no spleen, no tenderness, no ascites, no rebound. EXTREMITIES: No edema. CENTRAL NERVOUS SYSTEM: No focal finding. The hemoglobin initially was about 7.1. It went up after 3 units of blood to 7.9. His BUN continues to be 100 with the creatinine of 3.6. His platelet count is about 15,000. IMPRESSION: My feeling is that this is pancytopenia secondary to the combination of chemotherapy plu s radiation therapy. They should slowly started improving, although it going to take 2 or 3 weeks as complicated by severe dehydration due to the diarrhea due to the radiation therapy to the abdomen, w hich probably caused a certain amount of colitis. With a hemoglobin of 7.9 and BUN of 100, I think maryam mehta is still quite dehydrated and could use another 1 or 2 units of packed cells, first of all to help him ambulate. Lying flat, his blood pressure is only 100 and, although he does not complain of short ness of breath or pain, he really is not ambulating and is lying only flat. So my suspicion is he ca n use probably another 2 units of packed cells. As per the installment loan collector and cocoa butter filter operator, we can hold of f on the platelet transfusions as he is not bleeding and seems to be stable, although that will slowl y improve, and we can continue to observe him on this note. Negro [place] ROQUE cc: [id number] TT: 04/30/2016 11:40:05 Confirmation # [id number] Dictation # [id number] mn
--- NOTE | 2016-04-30 12:07 | CP.CCUPN ---
<Brannno Greenberg - Last Filed: 04/30/16 11:59> CCU Subjective - Physician Review Subjective (Free Text): Pt seen and examined at bedside. Pt received 1 unit of PRBCs overnight. Pt is doing well today and is able to speak more clearly than previous day. Pt is still complaining of dry mouth, but it is improved at this time. Pt also states that he has not had a bowel movement since being admitted to the hospital. Denies CP, SOB, N/V/D, fevers, chills. CCU Objective - Vital Signs / Intake & Output Vital Signs (Last 4 hours): Vital Signs Temp Pulse Resp BP Pulse Ox 04/30/16 11:44 99 H 04/30/16 11:00 87 20 88/42 L 98 04/30/16 10:45 86 20 84/41 L 98 04/30/16 10:40 98 F 86 16 84/41 L 04/30/16 10:30 89 23 95/52 L 98 04/30/16 10:15 87 23 86/40 L 98 04/30/16 10:00 91 H 25 H 101/43 L 98 04/30/16 09:55 98 F 90 26 H 100/54 L 04/30/16 09:45 91 H 22 100/54 L 98 04/30/16 09:40 98 F 91 H 20 92/46 L 04/30/16 09:33 90 27 H 92/46 L 98 04/30/16 09:00 95 H 26 H 109/48 L 97 04/30/16 08:20 100 H 26 H 97 04/30/16 08:19 93 H 13 96 04/30/16 08:00 93 H 30 H 101/53 L 98 Intake and Output (Last 8hrs): Intake & Output 04/29/16 04/30/16 04/30/16 22:59 06:59 14:59 Intake Total 2175 2970 0 Output Total 750 750 Balance 1425 2220 0 Weight 247 lb Intake: IV 1525 1850 Right Hand 325 Left Hand 1200 1850 Oral 650 120 Blood Product 1000 0 Red Blood Cells Cpd As1 0 Lr Unit [id number] Red Blood Cells Cpd As1 500 Lr Unit [id number] Output: Urine 750 750 Urethral (Beard) 750 750 Other: Voiding Method Indwelling Catheter Indwelling Catheter Indwelling Catheter # Bowel Movements Urethral (Beard) 0 - Physical Exam Head: Positive for: Atraumatic, Normocephalic Pupils: Positive for: PERRL Extroacular Muscles: Positive for: EOMI Conjunctiva: Positive for: Normal Ears: Positive for: Normal, NORMAL TM, Normal Canal. Negative for: Erythema Mouth: Positive for: Dry Neck: Positive for: Normal Range of Motion Respiratory/Chest: Positive for: Clear to Auscultation, Good Air Exchange. Negative for: Respiratory Distress, Accessory Muscle Use, Rales, Rhonchi Cardiovascular: Positive for: Tachycardic Abdomen: Positive for: Normal Bowel Sounds. Negative for: Tenderness, Distention, Peritoneal Signs Back: Positive for: Normal Inspection Upper Extremity: Positive for: Other (Avulsed nail to left thumb). Negative for : Cyanosis, Edema Lower Extremity: Positive for: Normal Inspection. Negative for: Edema Neurological: Positive for: GCS=15, CN II-XII Intact, Speech Normal Skin: Positive for: Warm, Dry, Pale. Negative for: Rashes Psychiatric: Positive for: Alert, Oriented x 3, Normal Insight, Normal Concentration - Medications Active Medications: Active Medications Generic Name Dose Route Start Last Admin Trade Name Freq PRN Reason Stop Dose Admin Chlordiazepoxide 25 mg 04/29/16 11:52 Librium PO Q8 PRN Agitation Protocol Sodium Chloride 1,000 mls @ 150 mls/hr 04/29/16 10:15 04/30/16 05:13 Sodium Chloride 0.9% IV 150 mls/hr .Q6H40M [facility]IL Administration Meropenem 1 gm/ Sodium 100 mls @ 100 mls/hr 04/30/16 11:30 Chloride IVPB 05/14/16 11:31 Q12 WIL Protocol Insulin Human Lispro 0 units 04/29/16 11:30 04/30/16 07:51 Humalog Low SC Not Given ACHS WIL Protocol Pantoprazole Sodium 40 mg 04/30/16 10:00 04/30/16 09:47 Protonix Inj IVP 40 mg DAILY WIL Administration - Patient Studies Lab Studies: Lab Studies 04/30/16 04/30/16 04/29/16 Range/Units 07:13 05:30 21:10 WBC 7.4 9.1 D (4.5-11.0) 10^3/ul RBC 2.66 L 2.40 L (3.5-6.1) 10^6/uL Hgb 7.9 L 7.1 L (14.0-18.0) gm/dL Hct 22.3 L 19.9 L* (42.0-52.0) % MCV 83.8 82.9 (80.0-105.0) fL MCH 29.7 29.6 (25.0-35.0) pg MCHC 35.4 35.7 (31.0-37.0) g/dl RDW 17.7 H 18.1 H (11.5-14.5) % Plt Count 16 L* 14 L* (120.0-450.0) 10^3/uL Fibrinogen 556.6 H (187-400) mg/dL Sodium 137 (132-148) mmol/L Potassium 3.4 L (3.6-5.0) mmol/L Chloride 106 (98-107) mmol/L Carbon Dioxide 19 L (21-33) mmol/L Anion Gap 15 (10-20) BUN 104 H (7-21) mg/dL Creatinine 3.6 H (0.5-1.4) mg/dL Est GFR ( Amer) 21 Est GFR (Non-Af Amer) 17 POC Glucose (mg/dL) (65-110) mg/dL Random Glucose 165 H (70-110) mg/dL Lactic Acid (0.7-2.1) mmol/L Calcium 5.2 L* (8.4-10.5) mg/dL Phosphorus 6.2 H (2.5-4.5) mg/dL Magnesium 1.8 (1.7-2.2) mg/dL Total Bilirubin 0.8 (0.2-1.3) mg/dL AST 71 H (15-59) U/L ALT 46 (7-56) U/L Alkaline Phosphatase 165 H (38-133) U/L Total Creatine Kinase 1418 H (35-230) U/L CK-MB (CK-2) 6.0 H (0.0-3.6) ng/mL CK-MB (CK-2) % 0.4 L (2.5-3.0) % Troponin I 0.04 D ng/mL Total Protein 4.9 L (5.8-8.3) g/dL Albumin 1.9 L (3.0-4.8) g/dL Globulin 3.0 gm/dL Albumin/Globulin Ratio 0.6 L (1.1-1.8) Ur Random Creatinine mg/dL Ur Random Sodium meq/L Ur Random Urea Nitrogn mg/dL 04/29/16 04/29/16 04/29/16 Range/Units 19:50 17:12 16:10 WBC 13.1 H D (4.5-11.0) 10^3/ul RBC 2.47 L (3.5-6.1) 10^6/uL Hgb 7.3 L (14.0-18.0) gm/dL Hct 20.7 L* (42.0-52.0) % MCV 83.8 (80.0-105.0) fL MCH 29.6 (25.0-35.0) pg MCHC 35.3 (31.0-37.0) g/dl RDW 18.1 H (11.5-14.5) % Plt Count 16 L* (120.0-450.0) 10^3/uL Fibrinogen (187-400) mg/dL Sodium 136 (132-148) mmol/L Potassium 3.7 (3.6-5.0) mmol/L Chloride 101 (98-107) mmol/L Carbon Dioxide 18 L (21-33) mmol/L Anion Gap 21 H (10-20) BUN 93 H (7-21) mg/dL Creatinine 4.1 H (0.5-1.4) mg/dL Est GFR ( Amer) 18 Est GFR (Non-Af Amer) 15 POC Glucose (mg/dL) 159 H (65-110) mg/dL Random Glucose 148 H (70-110) mg/dL Lactic Acid (0.7-2.1) mmol/L Calcium 5.7 L* (8.4-10.5) mg/dL Phosphorus (2.5-4.5) mg/dL Magnesium (1.7-2.2) mg/dL Total Bilirubin (0.2-1.3) mg/dL AST (15-59) U/L ALT (7-56) U/L Alkaline Phosphatase (38-133) U/L Total Creatine Kinase (35-230) U/L CK-MB (CK-2) (0.0-3.6) ng/mL CK-MB (CK-2) % (2.5-3.0) % Troponin I ng/mL Total Protein (5.8-8.3) g/dL Albumin (3.0-4.8) g/dL Globulin gm/dL Albumin/Globulin Ratio (1.1-1.8) Ur Random Creatinine 15 mg/dL Ur Random Sodium 47 meq/L Ur Random Urea Nitrogn 448 mg/dL 04/29/16 04/29/16 04/29/16 Range/Units 13:25 12:44 10:25 WBC (4.5-11.0) 10^3/ul RBC (3.5-6.1) 10^6/uL Hgb (14.0-18.0) gm/dL Hct (42.0-52.0) % MCV (80.0-105.0) fL MCH (25.0-35.0) pg MCHC (31.0-37.0) g/dl RDW (11.5-14.5) % Plt Count (120.0-450.0) 10^3/uL Fibrinogen (187-400) mg/dL Sodium (132-148) mmol/L Potassium (3.6-5.0) mmol/L Chloride (98-107) mmol/L Carbon Dioxide (21-33) mmol/L Anion Gap (10-20) BUN (7-21) mg/dL Creatinine (0.5-1.4) mg/dL Est GFR ( Amer) Est GFR (Non-Af Amer) POC Glucose (mg/dL) 137 H (65-110) mg/dL Random Glucose (70-110) mg/dL Lactic Acid 2.8 H (0.7-2.1) mmol/L Calcium (8.4-10.5) mg/dL Phosphorus (2.5-4.5) mg/dL Magnesium (1.7-2.2) mg/dL Total Bilirubin (0.2-1.3) mg/dL AST (15-59) U/L ALT (7-56) U/L Alkaline Phosphatase (38-133) U/L Total Creatine Kinase (35-230) U/L CK-MB (CK-2) (0.0-3.6) ng/mL CK-MB (CK-2) % (2.5-3.0) % Troponin I 0.06 D ng/mL Total Protein (5.8-8.3) g/dL Albumin (3.0-4.8) g/dL Globulin gm/dL Albumin/Globulin Ratio (1.1-1.8) Ur Random Creatinine mg/dL Ur Random Sodium meq/L Ur Random Urea Nitrogn mg/dL Laboratory Results - last 24 hr 04/29/16 04/29/16 04/29/16 10:25 12:44 13:25 WBC RBC Hgb Hct MCV MCH MCHC RDW Plt Count Fibrinogen Sodium Potassium Chloride Carbon Dioxide Anion Gap BUN Creatinine Est GFR ( Amer) Est GFR (Non-Af Amer) POC Glucose (mg/dL) 137 H Random Glucose Lactic Acid 2.8 H Calcium Phosphorus Magnesium Total Bilirubin AST ALT Alkaline Phosphatase Total Creatine Kinase CK-MB (CK-2) CK-MB (CK-2) % Troponin I 0.06 D Total Protein Albumin Globulin Albumin/Globulin Ratio Ur Random Creatinine Ur Random Sodium Ur Random Urea Nitrogn 04/29/16 04/29/16 04/29/16 16:10 17:12 19:50 WBC 13.1 H D RBC 2.47 L Hgb 7.3 L Hct 20.7 L* MCV 83.8 MCH 29.6 MCHC 35.3 RDW 18.1 H Plt Count 16 L* Fibrinogen Sodium 136 Potassium 3.7 Chloride 101 Carbon Dioxide 18 L Anion Gap 21 H BUN 93 H Creatinine 4.1 H Est GFR ( Amer) 18 Est GFR (Non-Af Amer) 15 POC Glucose (mg/dL) 159 H Random Glucose 148 H Lactic Acid Calcium 5.7 L* Phosphorus Magnesium Total Bilirubin AST ALT Alkaline Phosphatase Total Creatine Kinase CK-MB (CK-2) CK-MB (CK-2) % Troponin I Total Protein Albumin Globulin Albumin/Globulin Ratio Ur Random Creatinine 15 Ur Random Sodium 47 Ur Random Urea Nitrogn 448 04/29/16 04/30/16 04/30/16 21:10 05:30 07:13 WBC 9.1 D 7.4 RBC 2.40 L 2.66 L Hgb 7.1 L 7.9 L Hct 19.9 L* 22.3 L MCV 82.9 83.8 MCH 29.6 29.7 MCHC 35.7 35.4 RDW 18.1 H 17.7 H Plt Count 14 L* 16 L* Fibrinogen 556.6 H Sodium 137 Potassium 3.4 L Chloride 106 Carbon Dioxide 19 L Anion Gap 15 BUN 104 H Creatinine 3.6 H Est GFR ( Amer) 21 Est GFR (Non-Af Amer) 17 POC Glucose (mg/dL) Random Glucose 165 H Lactic Acid Calcium 5.2 L* Phosphorus 6.2 H Magnesium 1.8 Total Bilirubin 0.8 AST 71 H ALT 46 Alkaline Phosphatase 165 H Total Creatine Kinase 1418 H CK-MB (CK-2) 6.0 H CK-MB (CK-2) % 0.4 L Troponin I 0.04 D Total Protein 4.9 L Albumin 1.9 L Globulin 3.0 Albumin/Globulin Ratio 0.6 L Ur Random Creatinine Ur Random Sodium Ur Random Urea Nitrogn Fingerstick Blood Sugar Results: 148 Critical Care Progress Note - Nutrition Nutrition: Nutrition Category Date Time Status Consistent Carbohydrate [DIET] Diets 04/29/16 Lunch Ordered Assessment/Plan - Assessment and Plan (Free Text) Plan: 65 y/o M with PMH of Pancreatic Ca, Bladder Cancer, HTN, and DM presents to the ED with gram negative carmen bacteremia, UTI, anemia and acute renal failure in the setting of sepsis. Pt was transfused 1 unit of blood overnight and another this morning. Pt has rising BUN and decreasing creatinine which is concerning for GI bleed. Pt was seen by GI today, pt did refuse rectal examination at that time. GI is awaiting stool occult blood results before determining course of treatment. Neuro: AAO x3 Neurochecks q6h Monitor for acute mental status change Cardio: Hemodynamically stable Keep MAP >65 Will hold home BP meds at this time Pulm: No respiratory distress Nasal cannula Continue to keep O2 sat >90% GI: Possible concern for GI bleed, will continue to monitor Hg Repeat CBC in afternoon. GI prophylaxis Consistent carbohydrate diet Nephro: NS @ 150 cc/hr Will start Vancomycin and continue Merrem to cover for UTI Maintain euvolemia Strict I's and O's Replete electrolytes as needed Nephrology consulted, Dr. Shahid. ID: Afebrile, no leukocytosis Urine and blood cultures show gram negative rods at 24 hours Start Vancomycin and Merrem in the setting of sepsis Repeat blood culture ID consulted, Dr. Erickson Maintain normothermia Heme: Thrombocytopenia likely secondary to chemotherapy Hg at 6.1, transfused 3 units yesterday and 1 unit this morning Will recheck CBC in afternoon Continue to transfuse to keep Hg above 7 Endo: Insulin sliding scale Check glucose levels q6h Hold home metformin Maintain euglycemia Seen, reviewed, and discussed with attending CHRISTY GreenbergY-1 <Guanaco Leal B - Last Filed: 04/30/16 18:25> CCU Objective - Vital Signs / Intake & Output Vital Signs (Last 4 hours): Vital Signs Pulse Resp BP Pulse Ox 04/30/16 16:01 88 33 H 96 04/30/16 16:00 88 99/54 L 98 04/30/16 15:11 85 20 105/53 L 97 04/30/16 15:00 91 H 18 97 Intake and Output (Last 8hrs): Intake & Output 04/30/16 04/30/16 04/30/16 06:59 14:59 22:59 Intake Total 2970 315 Output Total 750 Balance 2220 315 Intake: IV 1850 Left Hand 1850 Oral 120 Blood Product 1000 315 Red Blood Cells Cpd As1 315 Lr Unit [id number] Red Blood Cells Cpd As1 500 Lr Unit [id number] Output: Urine 750 Urethral (Beard) 750 Other: Voiding Method Indwelling Catheter Indwelling Catheter - Medications Active Medications: Active Medications Generic Name Dose Route Start Last Admin Trade Name Freq PRN Reason Stop Dose Admin Chlordiazepoxide 25 mg 04/29/16 11:52 Librium PO Q8 PRN Agitation Protocol Sodium Chloride 1,000 mls @ 150 mls/hr 04/29/16 10:15 04/30/16 05:13 Sodium Chloride 0.9% IV 150 mls/hr .Q6H40M WIL Administration Meropenem 1 gm/ Sodium 100 mls @ 100 mls/hr 04/30/16 11:30 04/30/16 17:08 Chloride IVPB 05/14/16 11:31 Not Given Q12 WIL Protocol Famotidine 50 mls @ 100 mls/hr 04/30/16 22:00 Pepcid 20mg/50ml Premix IVPB Q12 WIL Insulin Human Lispro 0 units 04/29/16 11:30 04/30/16 17:27 Humalog Low SC 1 units ACHS WIL Administration Protocol Saliva Substitute 0 ml 04/30/16 14:00 Saliva Substitute PO 5XD PRN DRY MOUTH - Patient Studies Lab Studies: Microbiology Studies 04/29/16 17:20 C. difficile Antigen & Toxin A,B (M - Final Stool 04/29/16 11:30 MRSA Culture (Admit) - Final Nose MRSA NOT DETECTED Lab Studies 04/30/16 04/30/16 04/30/16 Range/Units 15:36 12:00 07:13 WBC 6.5 (4.5-11.0) 10^3/ul RBC 3.18 L (3.5-6.1) 10^6/uL Hgb 9.3 L (14.0-18.0) gm/dL Hct 26.9 L (42.0-52.0) % MCV 84.6 (80.0-105.0) fL MCH 29.2 (25.0-35.0) pg MCHC 34.6 (31.0-37.0) g/dl RDW 17.9 H (11.5-14.5) % Plt Count 24 L* (120.0-450.0) 10^3/uL Fibrinogen 556.6 H (187-400) mg/dL Sodium (132-148) mmol/L Potassium (3.6-5.0) mmol/L Chloride (98-107) mmol/L Carbon Dioxide (21-33) mmol/L Anion Gap (10-20) BUN (7-21) mg/dL Creatinine (0.5-1.4) mg/dL Est GFR ( Amer) Est GFR (Non-Af Amer) Random Glucose (70-110) mg/dL Calcium (8.4-10.5) mg/dL Phosphorus (2.5-4.5) mg/dL Magnesium (1.7-2.2) mg/dL Total Bilirubin (0.2-1.3) mg/dL AST (15-59) U/L ALT (7-56) U/L Alkaline Phosphatase (38-133) U/L Total Creatine Kinase (35-230) U/L CK-MB (CK-2) (0.0-3.6) ng/mL CK-MB (CK-2) % (2.5-3.0) % Troponin I ng/mL Total Protein (5.8-8.3) g/dL Albumin (3.0-4.8) g/dL Globulin gm/dL Albumin/Globulin Ratio (1.1-1.8) Ur Random Creatinine mg/dL Ur Random Sodium meq/L Ur Random Urea Nitrogn mg/dL Stool Occult Blood Positive H (NEGATIVE) 04/30/16 04/29/16 04/29/16 Range/Units 05:30 21:10 19:50 WBC 7.4 9.1 D (4.5-11.0) 10^3/ul RBC 2.66 L 2.40 L (3.5-6.1) 10^6/uL Hgb 7.9 L 7.1 L (14.0-18.0) gm/dL Hct 22.3 L 19.9 L* (42.0-52.0) % MCV 83.8 82.9 (80.0-105.0) fL MCH 29.7 29.6 (25.0-35.0) pg MCHC 35.4 35.7 (31.0-37.0) g/dl RDW 17.7 H 18.1 H (11.5-14.5) % Plt Count 16 L* 14 L* (120.0-450.0) 10^3/uL Fibrinogen (187-400) mg/dL Sodium 137 (132-148) mmol/L Potassium 3.4 L (3.6-5.0) mmol/L Chloride 106 (98-107) mmol/L Carbon Dioxide 19 L (21-33) mmol/L Anion Gap 15 (10-20) BUN 104 H (7-21) mg/dL Creatinine 3.6 H (0.5-1.4) mg/dL Est GFR ( Amer) 21 Est GFR (Non-Af Amer) 17 Random Glucose 165 H (70-110) mg/dL Calcium 5.2 L* (8.4-10.5) mg/dL Phosphorus 6.2 H (2.5-4.5) mg/dL Magnesium 1.8 (1.7-2.2) mg/dL Total Bilirubin 0.8 (0.2-1.3) mg/dL AST 71 H (15-59) U/L ALT 46 (7-56) U/L Alkaline Phosphatase 165 H (38-133) U/L Total Creatine Kinase 1418 H (35-230) U/L CK-MB (CK-2) 6.0 H (0.0-3.6) ng/mL CK-MB (CK-2) % 0.4 L (2.5-3.0) % Troponin I 0.04 D ng/mL Total Protein 4.9 L (5.8-8.3) g/dL Albumin 1.9 L (3.0-4.8) g/dL Globulin 3.0 gm/dL Albumin/Globulin Ratio 0.6 L (1.1-1.8) Ur Random Creatinine 15 mg/dL Ur Random Sodium 47 meq/L Ur Random Urea Nitrogn 448 mg/dL Stool Occult Blood (NEGATIVE) Laboratory Results - last 24 hr 04/29/16 04/29/16 04/30/16 19:50 21:10 05:30 WBC 9.1 D 7.4 RBC 2.40 L 2.66 L Hgb 7.1 L 7.9 L Hct 19.9 L* 22.3 L MCV 82.9 83.8 MCH 29.6 29.7 MCHC 35.7 35.4 RDW 18.1 H 17.7 H Plt Count 14 L* 16 L* Fibrinogen Sodium 137 Potassium 3.4 L Chloride 106 Carbon Dioxide 19 L Anion Gap 15 BUN 104 H Creatinine 3.6 H Est GFR ( Amer) 21 Est GFR (Non-Af Amer) 17 Random Glucose 165 H Calcium 5.2 L* Phosphorus 6.2 H Magnesium 1.8 Total Bilirubin 0.8 AST 71 H ALT 46 Alkaline Phosphatase 165 H Total Creatine Kinase 1418 H CK-MB (CK-2) 6.0 H CK-MB (CK-2) % 0.4 L Troponin I 0.04 D Total Protein 4.9 L Albumin 1.9 L Globulin 3.0 Albumin/Globulin Ratio 0.6 L Ur Random Creatinine 15 Ur Random Sodium 47 Ur Random Urea Nitrogn 448 Stool Occult Blood 04/30/16 04/30/16 04/30/16 07:13 12:00 15:36 WBC 6.5 RBC 3.18 L Hgb 9.3 L Hct 26.9 L MCV 84.6 MCH 29.2 MCHC 34.6 RDW 17.9 H Plt Count 24 L* Fibrinogen 556.6 H Sodium Potassium Chloride Carbon Dioxide Anion Gap BUN Creatinine Est GFR ( Amer) Est GFR (Non-Af Amer) Random Glucose Calcium Phosphorus Magnesium Total Bilirubin AST ALT Alkaline Phosphatase Total Creatine Kinase CK-MB (CK-2) CK-MB (CK-2) % Troponin I Total Protein Albumin Globulin Albumin/Globulin Ratio Ur Random Creatinine Ur Random Sodium Ur Random Urea Nitrogn Stool Occult Blood Positive H Critical Care Progress Note - Nutrition Nutrition: Nutrition Category Date Time Status Consistent Carbohydrate [DIET] Diets 04/29/16 Lunch Ordered Addendum Addendum: 04/30/16 18:24 patient was seen and examined with Dr. Brennan. Please see Dr. Leal's note
--- NOTE | 2016-04-30 13:39 | CP.PCM.CON ---
History of Present Illness - History of Present Illness History of Present Illness: 65 year old male with PMH of HTN, DM, obesity with BMI 34, pancreatic cancer came in to the ED complaining of generalized weakness and easy fatigability which started about 3 days ago. He recently underwent chemotherapy and radiation therapy about 3 and a half weeks ago. He also has associated anorexia , nausea but no vomiting. He has had some lightheadedness as well and decrease in his urine output. He denies abdominal pain, has loose bowel movement, no melena or hematochezia, no fever or chills, no no sore throat, no chest pain, no SOB, no dysphagia, no dizziness. Blood and urine cx were taken in the ED which is now showing gram negative bacilli. Infectious Diseases consult is requested to further evaluate and manage. Review of Systems - Review of Systems All systems: reviewed and no additional remarkable complaints except (as per HPI ) Past Patient History - Infectious Disease Hx of Infectious Diseases: None - Past Social History Smoking Status: Former Smoker - CARDIAC Hx Hypertension: Yes - NEUROLOGICAL HX Cerebrovascular Accident: Yes - ENDOCRINE/METABOLIC Hx Diabetes Mellitus Type 2: Yes - HEMATOLOGICAL/ONCOLOGICAL Hx Cancer: Yes (Bladder & Pancreatic CA) - MUSCULOSKELETAL/RHEUMATOLOGICAL Hx Falls: No - GENITOURINARY/GYNECOLOGICAL Other/Comment: + Urinary Catheter - PSYCHIATRIC Hx Substance Use: No - SURGICAL HISTORY Hx Surgeries: No - ANESTHESIA Hx Anesthesia: Yes Hx Anesthesia Reactions: No Hx Malignant Hyperthermia: No Meds Allergies/Adverse Reactions: Allergies Allergy/AdvReac Type Severity Reaction Status Date / Time pcn Allergy DIZZINESS Uncoded 04/29/16 01:42 - Medications Medications: Current Medications Chlordiazepoxide (Librium) 25 mg PO Q8 PRN; Protocol PRN Reason: Agitation Vancomycin HCl 1.5 gm/ Sodium (Chloride) 500 mls @ 250 mls/hr IVPB DAILY WIL PRN Reason: Protocol Last Admin: 04/30/16 09:45 Dose: 250 mls/hr Sodium Chloride (Sodium Chloride 0.9%) 1,000 mls @ 150 mls/hr IV .Q6H40M [facility] Last Admin: 04/30/16 05:13 Dose: 150 mls/hr Meropenem 1 gm/ Sodium (Chloride) 100 mls @ 100 mls/hr IVPB Q12 WIL PRN Reason: Protocol Stop: 04/30/16 12:29 Insulin Human Lispro (Humalog Low) 0 units SC ACHS [facility] PRN Reason: Protocol Last Admin: 04/30/16 07:51 Dose: Not Given Pantoprazole Sodium (Protonix Inj) 40 mg IVP DAILY [facility] Last Admin: 04/30/16 09:47 Dose: 40 mg Physical Exam - Constitutional Appears: Non-toxic, No Acute Distress - Head Exam Head Exam: NORMAL INSPECTION - Neck Exam Neck exam: Negative for: Meningismus - Respiratory Exam Respiratory Exam: Decreased Breath Sounds - Cardiovascular Exam Cardiovascular Exam: +S1, +S2 - GI/Abdominal Exam GI & Abdominal Exam: Soft. absent: Tenderness Results - Vital Signs Recent Vital Signs: Last Vital Signs Temp 98 F 04/30/16 10:40 Pulse 87 04/30/16 11:00 Resp 20 04/30/16 11:00 BP 88/42 L 04/30/16 11:00 Pulse Ox 98 04/30/16 11:00 - Labs Result Diagrams: 04/30/16 05:30 04/30/16 05:30 Labs: Laboratory Results - last 24 hr 04/29/16 04/29/16 04/29/16 10:25 12:44 13:25 WBC RBC Hgb Hct MCV MCH MCHC RDW Plt Count Fibrinogen Sodium Potassium Chloride Carbon Dioxide Anion Gap BUN Creatinine Est GFR ( Amer) Est GFR (Non-Af Amer) POC Glucose (mg/dL) 137 H Random Glucose Lactic Acid 2.8 H Calcium Phosphorus Magnesium Total Bilirubin AST ALT Alkaline Phosphatase Total Creatine Kinase CK-MB (CK-2) CK-MB (CK-2) % Troponin I 0.06 D Total Protein Albumin Globulin Albumin/Globulin Ratio Ur Random Creatinine Ur Random Sodium Ur Random Urea Nitrogn 04/29/16 04/29/16 04/29/16 16:10 17:12 19:50 WBC 13.1 H D RBC 2.47 L Hgb 7.3 L Hct 20.7 L* MCV 83.8 MCH 29.6 MCHC 35.3 RDW 18.1 H Plt Count 16 L* Fibrinogen Sodium 136 Potassium 3.7 Chloride 101 Carbon Dioxide 18 L Anion Gap 21 H BUN 93 H Creatinine 4.1 H Est GFR ( Amer) 18 Est GFR (Non-Af Amer) 15 POC Glucose (mg/dL) 159 H Random Glucose 148 H Lactic Acid Calcium 5.7 L* Phosphorus Magnesium Total Bilirubin AST ALT Alkaline Phosphatase Total Creatine Kinase CK-MB (CK-2) CK-MB (CK-2) % Troponin I Total Protein Albumin Globulin Albumin/Globulin Ratio Ur Random Creatinine 15 Ur Random Sodium 47 Ur Random Urea Nitrogn 448 04/29/16 04/30/16 04/30/16 21:10 05:30 07:13 WBC 9.1 D 7.4 RBC 2.40 L 2.66 L Hgb 7.1 L 7.9 L Hct 19.9 L* 22.3 L MCV 82.9 83.8 MCH 29.6 29.7 MCHC 35.7 35.4 RDW 18.1 H 17.7 H Plt Count 14 L* 16 L* Fibrinogen 556.6 H Sodium 137 Potassium 3.4 L Chloride 106 Carbon Dioxide 19 L Anion Gap 15 BUN 104 H Creatinine 3.6 H Est GFR ( Amer) 21 Est GFR (Non-Af Amer) 17 POC Glucose (mg/dL) Random Glucose 165 H Lactic Acid Calcium 5.2 L* Phosphorus 6.2 H Magnesium 1.8 Total Bilirubin 0.8 AST 71 H ALT 46 Alkaline Phosphatase 165 H Total Creatine Kinase 1418 H CK-MB (CK-2) 6.0 H CK-MB (CK-2) % 0.4 L Troponin I 0.04 D Total Protein 4.9 L Albumin 1.9 L Globulin 3.0 Albumin/Globulin Ratio 0.6 L Ur Random Creatinine Ur Random Sodium Ur Random Urea Nitrogn Assessment & Plan - Assessment and Plan (Free Text) Plan: Assessment Severe sepsis with acute renal failure secondary to gram negative bacilli bacteremia probably from urinary tract infection R/O intra-abdominal infection acute anemia Pancreatic cancer S/P chemotherapy and radiation therapy and surgery HTN DM obesity with BMI 34 Plan Started patient on Meropenem (and patient given one dose of IV Vancomycin) pending identification and sensitivities of the gram negative bacilli in the blood and urine; will repeat blood cx tomorrow; will also order CT Abdomen and pelvis Patient is undergoing pRBC transfusion Will follow clinically Overall prognosis is poor
[2016-04-30] MEDS ORDERED: Saliva Substitute 44.3 ML PO PRN (14:00)
--- NOTE | 2016-04-30 14:00 | CON ---
DATE: 04/30/2016 HISTORY OF PRESENT ILLNESS: The patient is a 65-year-old male who presents with marked weakness. He has been having difficulty walking without chest pain. He also complains of diarrhea. PAST MEDICAL HISTORY: Notable for hypertension, diabetes mellitus, as well as pancreatic cancer. Th e patient has had a CVA in the past. No previous cardiac history. No chest pain, no shortness of breath. SOCIAL HISTORY: Notable for a long history of smoking, which he stopped recently. He was a heavy alcohol drinker in the past, which he denies any alcoholic binges since. REVIEW OF SYSTEMS: A 14-point review of systems was reviewed in detail. No shortness of breath. No chest pain. No pedal edema. Other than weakness, there are no other cardiac symptoms noted. PHYSICAL EXAMINATION: VITAL SIGNS: Blood pressure 100/54. The heart rate is in the 90s. The patient is afebrile. NECK: Negative JVD. LUNGS: Without rales. HEART: Reveals S1, S2. EXTREMITIES: Without edema. LABORATORIES: Hemoglobin is 7.1. Chemistries: The calcium is 5.2. Potassium is 3.4. BUN and creat inine is 104/3.6. Troponin 0.04. IMPRESSION: 1. Marked anemia which can explain many of his symptoms. 2. History of pancreatic cancer. 3. Renal insufficiency. 4. Hypertension. 5. Hypercholesterolemia. 6. Chronic obstructive pulmonary disease. 7. Diabetes mellitus. 8. Borderline elevated troponins likely due to his renal insufficiency. Given these findings, the patient will need blood transfusions. We will obtain an echocardiogram to evaluate his LV function. Horacio Rogel MD cc: [id number] TT: 04/30/2016 13:58:58 Confirmation # [id number] Dictation # [id number] david
--- NOTE | 2016-04-30 14:54 | CT ---
PROCEDURE: CT Abdomen and Pelvis without intravenous contrast HISTORY: rule out intra-abdominal abscess COMPARISON: 07/15/2015 TECHNIQUE: Without contrast. Contrast Dose: Radiation dose: Total exam DLP = 1297 mGy-cm. FINDINGS: LOWER THORAX: Unremarkable. LIVER: Unremarkable. No gross lesion or ductal dilatation. GALLBLADDER AND BILE DUCTS: Unremarkable. PANCREAS: Unremarkable. No gross lesion or ductal dilatation. SPLEEN: Unremarkable. ADRENALS: Unremarkable. No mass. KIDNEYS AND URETERS: See below VASCULATURE: Unremarkable. No aortic aneurysm. BOWEL: Unremarkable. No obstruction. No gross mural thickening. APPENDIX: Unremarkable. Normal appendix. PERITONEUM: Unremarkable. No free fluid. No free air. LYMPH NODES: Unremarkable. No enlarged lymph nodes. BLADDER: There is mural thickening in the urinary bladder. There is also a air in the wall of the bladder anteriorly. There is also a collection of extra luminal air anterior and to the right of the bladder. The bladder contains dense fluid consistent with hemorrhage. The fluid measures 38 Hounsfield units in density. The findings are suspicious for severe cystitis. There is also perinephric stranding suggestive is of pyelonephritis. There is no significant hydronephrosis REPRODUCTIVE: Unremarkable. BONES: No acute fracture. OTHER FINDINGS: None. IMPRESSION: Severe mural thickening and pneumatosis in the wall of the urinary bladder with an adjacent extra luminal air collection. Findings are consistent with severe cystitis. There is also evidence of pyelonephritis with severe perinephric stranding
--- NOTE | 2016-04-30 15:05 | US ---
PROCEDURE: Right upper extremity venous US CLINICAL HISTORY: Arm pain and swelling Evaluate for deep venous thrombosis. PHYSICIAN(S): Horacio Olivia M.D FINDINGS: The visualized rightinternal jugular vein is sonographically normal and compressible. No evidence of obstruction or thrombus is seen. A catheter is present in the lower right internal jugular vein. The visualized segments of the right subclavian vein are patent with normal waveforms. No sonographic evidence of obstruction or thrombosis is seen. The visualized deep venous system of the proximal right upper extremity is sonographically normal and compressible. IMPRESSION: 1. No sonographic evidence for deep venous thrombosis in the visualized segments of the right upper extremity.
[2016-04-30 15:44] LABS: HEMATOCRIT 26.9 % (42.0-52.0); MEAN CELL VOLUME 84.6 fL (80.0-105.0); MEAN CORPUSCULAR HEMOGLOBIN 29.2 pg (25.0-35.0); MEAN CORPUSCULAR HGB CONC 34.6 g/dl (31.0-37.0); RED CELL DISTRIBUTION WIDTH 17.9 % (11.5-14.5); WHITE BLOOD COUNT 6.5 10^3/ul (4.5-11.0)
[2016-04-30 15:47] LABS: PLATELET COUNT 24 10^3/uL (120.0-450.0)
[2016-04-30] MEDS: Meropenem 1 GM in Sodium Chloride 0.9% 100 ML IVPB SCH (17:08)
--- NOTE | 2016-04-30 17:48 | CARD ---
APPROVED REPORT EXAM: Two-dimensional and M-mode echocardiogram with Doppler and color Doppler. INDICATION WEAKNESS 2D DIMENSIONS Left Atrium (2D)4.4 (1.6-4.0cm)IVSd0.9 (0.7-1.1cm) LVDd5.8 (3.9-5.9cm)PWd1.2 (0.7-1.1cm) LVDs4.3 (2.5-4.0cm)FS (%) 26.8 % LVEF (%)51.7 (>50%) M-Mode DIMENSIONS Aortic Root3.20 (2.2-3.7cm)Aortic Cusp Exc.2.00 (1.5-2.0cm) Aortic Valve AoV Peak Qegukjti585.0cm/Handy Peak GR.15mmHg Mitral Valve MV E Ngbnrpey520.0cm/sMV A Ubqhhusq27.4cm/sE/A ratio1.2 TDI Lateral E' Peak V16.40cm/sMedial E' Peak V11.00cm/sE/Lateral E'6.6 E/Medial E'9.8 Pulmonary Valve PV Peak Fpvozviw75.3cm/sPV Peak Grad.4mmHg Tricuspid Valve TR Peak Xlfgtkxy188or/sRAP QYHOFCHG77kbGaSY Peak Gr.24mmHg [id number] LEFT VENTRICLE The left ventricle is normal size. There is normal left ventricular wall thickness. Left ventricle ejection fraction is borderline. There is normal LV segmental wall motion. The left ventricular diastolic function is normal. No left ventricle thrombus noted on this study. RIGHT VENTRICLE The right ventricle is normal size. There is normal right ventricular wall thickness. The right ventricular systolic function is normal. ATRIA The left atrium is borderline dilated. The right atrium size is normal. AORTIC VALVE The aortic valve is not well visualized. MITRAL VALVE The mitral valve is not well visualized. TRICUSPID VALVE There is trace tricuspid regurgitation. There is mild pulmonary hypertension. GREAT VESSELS The aortic root is normal in size. PERICARDIAL EFFUSION There is no pericardial effusion. <Conclusion> There is normal left ventricular wall thickness. Left ventricle ejection fraction is borderline. There is normal LV segmental wall motion. The left ventricular diastolic function is normal. There is mild pulmonary hypertension.
[2016-04-30] MEDS: Famotidine 20mg/50ml 50 ML IVPB SCH (21:33)
[2016-05-01] MEDS: Sodium Chloride 0.9% 1,000 ML IV SCH ×6 (02:30→21:58)
[2016-05-01 05:23] LABS: CHLORIDE URINE 39 mmol/L (32-290)
[2016-05-01 06:24] LABS: HEMATOCRIT 24.1 % (42.0-52.0); MEAN CELL VOLUME 82.5 fL (80.0-105.0); MEAN CORPUSCULAR HEMOGLOBIN 29.5 pg (25.0-35.0); MEAN CORPUSCULAR HGB CONC 35.7 g/dl (31.0-37.0); RED CELL DISTRIBUTION WIDTH 17.9 % (11.5-14.5); WHITE BLOOD COUNT 6.4 10^3/ul (4.5-11.0)
[2016-05-01 06:25] LABS: PLATELET COUNT 7 10^3/uL (120.0-450.0)
[2016-05-01 06:47] LABS: ALB/GLOB RATIO 0.6 (1.1-1.8); BILIRUBIN,TOTAL 0.8 mg/dL (0.2-1.3); POTASSIUM 3.2 mmol/L (3.6-5.0); TOTAL PROTEIN 4.5 g/dL (5.8-8.3)
[2016-05-01 07:05] LABS: CALCIUM 4.7 mg/dL (8.4-10.5)
--- NOTE | 2016-05-01 07:49 | CP.PCM.PN ---
<Scott Fraser - Last Filed: 05/01/16 12:40> Subjective - Date & Time of Evaluation Date of Evaluation: 05/01/16 Time of Evaluation: 07:38 - Subjective Subjective: Medicine PGY1 - GI service Patient seen and examined at bedside this morning. Denied any new events or new complaints. Reports no visible dark-colored/bloody bowel movements. Refused rectal examination again this morning. Patient positive for gram negative bacteremia. Denies fever, chills, cough, chest pain, palptiations, abdominal pain, nausea, vomiting. 12 point ROS reviewed and negative unless stated otherwise above. Objective - Vital Signs/Intake and Output Vital Signs (last 24 hours): Temp Pulse Resp BP Pulse Ox 99.1 F 88 24 98/54 L 94 L 05/01/16 04:00 05/01/16 06:08 05/01/16 06:08 05/01/16 06:08 05/01/16 06:08 Intake and Output: 05/01/16 05/01/16 06:59 18:59 Intake Total 4350 Output Total 3040 Balance 1310 - Medications Medications: Current Medications Chlordiazepoxide (Librium) 25 mg PO Q8 PRN; Protocol PRN Reason: Agitation Sodium Chloride (Sodium Chloride 0.9%) 1,000 mls @ 150 mls/hr IV .Q6H40M [facility] Last Admin: 05/01/16 02:30 Dose: 150 mls/hr Meropenem 1 gm/ Sodium (Chloride) 100 mls @ 100 mls/hr IVPB Q12 [facility] PRN Reason: Protocol Stop: 05/14/16 11:31 Last Admin: 04/30/16 17:08 Dose: Not Given Famotidine (Pepcid 20mg/50ml Premix) 50 mls @ 100 mls/hr IVPB Q12 [facility] Last Admin: 04/30/16 21:33 Dose: 100 mls/hr Potassium Chloride (Potassium Chloride 10 Meq/100 Ml) 100 mls @ 100 mls/hr IVPB Q2H [facility] Stop: 05/01/16 10:29 Insulin Human Lispro (Humalog Low) 0 units SC ACHS [facility] PRN Reason: Protocol Last Admin: 04/30/16 21:33 Dose: Not Given Saliva Substitute (Saliva Substitute) 0 ml PO 5XD PRN PRN Reason: DRY MOUTH - Labs Labs: 05/01/16 05:00 05/01/16 05:00 PT 14.4 Seconds (9.9-11.8) H 04/29/16 02:40 INR 1.33 (0.93-1.08) H 04/29/16 02:40 APTT 29.7 Seconds (23.7-30.8) 04/29/16 02:40 - Constitutional Appears: No Acute Distress, Chronically Ill - Head Exam Head Exam: ATRAUMATIC, NORMAL INSPECTION, NORMOCEPHALIC - Eye Exam Eye Exam: EOMI Pupil Exam: PERRL - ENT Exam ENT Exam: Mucous Membranes Dry - Respiratory Exam Respiratory Exam: Clear to Ausculation Bilateral. absent: Rales, Rhonchi, Wheezes - Cardiovascular Exam Cardiovascular Exam: RRR, +S1, +S2. absent: Diastolic murmur, Gallop, JVD, Rubs , Murmur - GI/Abdominal Exam GI & Abdominal Exam: Distended, Soft, Normal Bowel Sounds. absent: Firm, Guarding, Rigid, Tenderness - Rectal Exam Additional comments: refused - Neurological Exam Neurological Exam: Alert, Awake, Oriented x3 - Psychiatric Exam Psychiatric exam: Normal Affect, Normal Mood - Skin Skin Exam: Dry, Intact, Normal Color, Warm Additional comments: b/l lower extremity chronic venous stasis Assessment and Plan - Assessment and Plan (Free Text) Assessment: 65yo male with history of pancreatic ca, bladder ca, hypertension and DMT2 that presented c/o generalized weakness and fatigue associated with multiple episodes of dark-colored, watery diarrhea for 3 days prior to presentation 1. Normocytic anemia 2. Thrombocytopenia 3. Acute kidney injury 4. Bacteremia 5. Cdiff 6. Pancreatic/Bladder Ca 7. Hypertension 8. Diabetes Mellitus type 2 Plan: -Anemia/thrombocytopenia likely secondary to chemotherapeutic agents; Patient receiving chemotherapy on combination gemcitabine and abraxane along with radiation -Continue antibiotic management for bacteremia/cystitis as per ID recommendations -Continue PO vanc for cdiff colitis -Continue to monitor H/H and transfuse as indicated -Refused rectal examination, currently denies bloody bowel movements -Continue H2 vin therapy rather than PPI therapy which has potential to worsen existing thrombocytopenia -Creatinine improving, continue to monitor and follow up nephrology recommendations -CT abd/pelvis reviewed -Continue supportive care -Stool occult blood positive -Maintain hemodynamic stability, will make further recommendations as necessary -Currently no planned GI interventions in the absence of overt GI bleeding and hemodynamic instability along with significant thrombocytopenia, however patient will require close monitoring and multi disciplinary care. Patient seen and case discussed with attending, Dr. Zavala <Law Zavala - Last Filed: 05/01/16 13:10> Objective - Vital Signs/Intake and Output Vital Signs (last 24 hours): Temp Pulse Resp BP Pulse Ox 99.1 F 88 24 98/54 L 94 L 05/01/16 04:00 05/01/16 06:08 05/01/16 06:08 05/01/16 06:08 05/01/16 06:08 Intake and Output: 05/01/16 05/01/16 06:59 18:59 Intake Total 4350 Output Total 3040 Balance 1310 - Medications Medications: Current Medications Chlordiazepoxide (Librium) 25 mg PO Q8 PRN; Protocol PRN Reason: Agitation Sodium Chloride (Sodium Chloride 0.9%) 1,000 mls @ 150 mls/hr IV .Q6H40M [facility] Last Admin: 05/01/16 12:17 Dose: 150 mls/hr Meropenem 1 gm/ Sodium (Chloride) 100 mls @ 100 mls/hr IVPB Q12 [facility] PRN Reason: Protocol Stop: 05/14/16 11:31 Last Admin: 05/01/16 09:35 Dose: 100 mls/hr Famotidine (Pepcid 20mg/50ml Premix) 50 mls @ 100 mls/hr IVPB Q12 [facility] Last Admin: 05/01/16 10:44 Dose: 100 mls/hr Insulin Human Lispro (Humalog Low) 0 units SC ACHS [facility] PRN Reason: Protocol Last Admin: 05/01/16 12:21 Dose: 1 units Saliva Substitute (Saliva Substitute) 0 ml PO 5XD PRN PRN Reason: DRY MOUTH Vancomycin HCl (Vancocin 25 Mg/Ml (Oral Use)) 125 mg PO QID [facility] PRN Reason: Protocol Last Admin: 05/01/16 09:35 Dose: 125 mg - Labs Labs: 05/01/16 05:00 05/01/16 05:00 PT 14.4 Seconds (9.9-11.8) H 04/29/16 02:40 INR 1.33 (0.93-1.08) H 04/29/16 02:40 APTT 29.7 Seconds (23.7-30.8) 04/29/16 02:40 Attending/Attestation - Attestation I have personally seen and examined this patient.: Yes I have fully participated in the care of the patient.: Yes I have reviewed all pertinent clinical information, including history, physical exam and plan: Yes Notes (Text): 05/01/16 13:03 65 year old male with history of Pancreatic cancer, Bladder Cancer, HTN, DM2 admitted with weakness and fatigue, found to have anemia, renal failure, and GNR bacteremia. 1. Symptomatic anemia 2. Clostridium difficile diarrhea 3. Pancreatic cancer 4. Occult blood positive Plan: -no overt signs of GI bleeding (melena, hematochezia, hematemesis) -occult blood positive is unsuprising in the setting of severe thrombocytopenia -would not pursue endoscopy unless active signs of overt GI blood loss -supportive care with blood and platelet transfusion as needed -agree w/ oral vancomycin for C. diff -continue H2 vin -Reviewed CT images -consider urology consultation considering bladder cancer/hydroureter -no signs of biliary obstruction due to pancreatic cancer at this time -source of bacteremia more likely urological
[2016-05-01] MEDS: Insulin Lispro (humaLOG) LOW Coverage SC SCH ×4 (08:13→21:57)
[2016-05-01] MEDS: Potassium Chloride 10 mEq 100 ML IVPB SCH ×2 (08:14→10:42)
[2016-05-01 08:35] LABS: PLATELET ESTIMATE LOW (NORMAL)
[2016-05-01] MEDS: Meropenem 1 GM in Sodium Chloride 0.9% 100 ML IVPB SCH ×2 (09:35→21:57)
[2016-05-01] MEDS: Vancomycin 25 MG/ML PO SCH ×4 (09:35→21:59)
--- NOTE | 2016-05-01 09:59 | CP.PCM.PN ---
Subjective - Date & Time of Evaluation Date of Evaluation: 05/01/16 Time of Evaluation: 08:30 - Subjective Subjective: Comfortable in bed, still with loose bowel movement, no abdominal pain, no fevers. Objective - Vital Signs/Intake and Output Vital Signs (last 24 hours): Temp Pulse Resp BP Pulse Ox 99.1 F 88 24 98/54 L 94 L 05/01/16 04:00 05/01/16 06:08 05/01/16 06:08 05/01/16 06:08 05/01/16 06:08 Intake and Output: 05/01/16 05/01/16 06:59 18:59 Intake Total 4350 Output Total 3040 Balance 1310 - Medications Medications: Current Medications Chlordiazepoxide (Librium) 25 mg PO Q8 PRN; Protocol PRN Reason: Agitation Sodium Chloride (Sodium Chloride 0.9%) 1,000 mls @ 150 mls/hr IV .Q6H40M [facility] Last Admin: 05/01/16 02:30 Dose: 150 mls/hr Meropenem 1 gm/ Sodium (Chloride) 100 mls @ 100 mls/hr IVPB Q12 [facility] PRN Reason: Protocol Stop: 05/14/16 11:31 Last Admin: 04/30/16 17:08 Dose: Not Given Famotidine (Pepcid 20mg/50ml Premix) 50 mls @ 100 mls/hr IVPB Q12 [facility] Last Admin: 04/30/16 21:33 Dose: 100 mls/hr Potassium Chloride (Potassium Chloride 10 Meq/100 Ml) 100 mls @ 100 mls/hr IVPB Q2H [facility] Stop: 05/01/16 10:29 Last Admin: 05/01/16 08:14 Dose: 100 mls/hr Insulin Human Lispro (Humalog Low) 0 units SC ACHS [facility]IL PRN Reason: Protocol Last Admin: 05/01/16 08:13 Dose: 1 units Saliva Substitute (Saliva Substitute) 0 ml PO 5XD PRN PRN Reason: DRY MOUTH Vancomycin HCl (Vancocin 25 Mg/Ml (Oral Use)) 125 mg PO QID [facility] PRN Reason: Protocol - Labs Labs: 05/01/16 05:00 05/01/16 05:00 PT 14.4 Seconds (9.9-11.8) H 04/29/16 02:40 INR 1.33 (0.93-1.08) H 04/29/16 02:40 APTT 29.7 Seconds (23.7-30.8) 04/29/16 02:40 - Constitutional Appears: Non-toxic, No Acute Distress - Head Exam Head Exam: NORMAL INSPECTION - Neck Exam Neck Exam: absent: Lymphadenopathy, Meningismus - Respiratory Exam Respiratory Exam: Decreased Breath Sounds Additional comments: right anterior chest wall port in place - Cardiovascular Exam Cardiovascular Exam: +S1, +S2 - GI/Abdominal Exam GI & Abdominal Exam: Soft. absent: Tenderness Assessment and Plan - Assessment and Plan (Free Text) Plan: Assessment Severe sepsis with acute renal failure secondary to gram negative bacilli bacteremia probably from urinary tract infection and pyelonephritis, R/O port infection; also with C diff associated diarrhea acute anemia Pancreatic cancer S/P chemotherapy and radiation therapy and surgery HTN DM obesity with BMI 34 Plan continue Meropenem day 2 (and patient given one dose of IV Vancomycin) pending identification and sensitivities of the gram negative bacilli in the blood and urine; will repeat blood cx today from the port; CT Abdomen and pelvis reviewed ; started on PO Vancomycin Patient underwent pRBC transfusion Will follow clinically Overall prognosis is poor
[2016-05-01] MEDS: Famotidine 20mg/50ml 50 ML IVPB SCH ×2 (10:44→21:19)
--- NOTE | 2016-05-01 11:14 | CP.CCUPN ---
<Brannon Greenberg - Last Filed: 05/01/16 15:22> CCU Subjective - Physician Review Subjective (Free Text): Pt seen and examined at bedside. Pt doing well overnight with no complaints. Pt states he is still having loose bowel movements, he had 1 this morning. Pt has improved dry mouth. Pt was found to have a low platelet count on morning CBC and manual count was obtained and found to be 10. Pt will be given 1 unit of platelets. Denies CP, SOB, nausea, vomiting, fever. CCU Objective - Vital Signs / Intake & Output Intake and Output (Last 8hrs): Intake & Output 04/30/16 05/01/16 05/01/16 22:59 06:59 14:59 Intake Total 1700 2650 Output Total 1040 2000 Balance 660 650 Intake: IV 1300 1850 Right Hand 50 Left Hand 1300 1800 Oral 400 800 Output: Urine 1000 2000 Urethral (Beard) 1000 2000 Stool 40 Other: Voiding Method Indwelling Catheter # Bowel Movements 4 - Physical Exam Head: Positive for: Atraumatic, Normocephalic Pupils: Positive for: PERRL Extroacular Muscles: Positive for: EOMI Conjunctiva: Positive for: Normal Ears: Positive for: Normal, NORMAL TM, Normal Canal. Negative for: Erythema Mouth: Positive for: Dry Neck: Positive for: Normal Range of Motion Respiratory/Chest: Positive for: Clear to Auscultation, Good Air Exchange. Negative for: Respiratory Distress, Accessory Muscle Use, Rales, Rhonchi Cardiovascular: Positive for: Tachycardic Abdomen: Positive for: Normal Bowel Sounds. Negative for: Tenderness, Distention, Peritoneal Signs Back: Positive for: Normal Inspection Upper Extremity: Positive for: Other (Avulsed nail to left thumb). Negative for : Cyanosis, Edema Lower Extremity: Positive for: Normal Inspection. Negative for: Edema Neurological: Positive for: GCS=15, CN II-XII Intact, Speech Normal Skin: Positive for: Warm, Dry, Pale, Other (Chronic venous stasis dermatitis changes to b/l lower extremities). Negative for: Rashes Psychiatric: Positive for: Alert, Oriented x 3, Normal Insight, Normal Concentration - Medications Active Medications: Active Medications Generic Name Dose Route Start Last Admin Trade Name Freq PRN Reason Stop Dose Admin Chlordiazepoxide 25 mg 04/29/16 11:52 Librium PO Q8 PRN Agitation Protocol Sodium Chloride 1,000 mls @ 150 mls/hr 04/29/16 10:15 05/01/16 09:11 Sodium Chloride 0.9% IV Not Given .[id number] WIL Meropenem 1 gm/ Sodium 100 mls @ 100 mls/hr 04/30/16 11:30 05/01/16 09:35 Chloride IVPB 05/14/16 11:31 100 mls/hr Q12 WIL Administration Protocol Famotidine 50 mls @ 100 mls/hr 04/30/16 22:00 05/01/16 10:44 Pepcid 20mg/50ml Premix IVPB 100 mls/hr Q12 WIL Administration Insulin Human Lispro 0 units 04/29/16 11:30 05/01/16 08:13 Humalog Low SC 1 units ACHS WIL Administration Protocol Saliva Substitute 0 ml 04/30/16 14:00 Saliva Substitute PO 5XD PRN DRY MOUTH Vancomycin HCl 125 mg 05/01/16 10:00 05/01/16 09:35 Vancocin 25 Mg/Ml (Oral Use) PO 125 mg QID WIL Administration Protocol - Patient Studies Lab Studies: Microbiology Studies 04/29/16 17:20 C. difficile Antigen & Toxin A,B (M - Final Stool 04/29/16 11:30 MRSA Culture (Admit) - Final Nose MRSA NOT DETECTED Lab Studies 05/01/16 05/01/16 04/30/16 Range/Units 07:15 05:00 21:08 WBC 6.4 (4.5-11.0) 10^3/ul RBC 2.92 L (3.5-6.1) 10^6/uL Hgb 8.6 L (14.0-18.0) gm/dL Hct 24.1 L (42.0-52.0) % MCV 82.5 (80.0-105.0) fL MCH 29.5 (25.0-35.0) pg MCHC 35.7 (31.0-37.0) g/dl RDW 17.9 H (11.5-14.5) % Plt Count 7 L* (120.0-450.0) 10^3/uL Manual Plt Count 10 L* (120-450) K/mm3 Platelet Evaluation Low (NORMAL) Sodium 142 (132-148) mmol/L Potassium 3.2 L (3.6-5.0) mmol/L Chloride 115 H (98-107) mmol/L Carbon Dioxide 17 L (21-33) mmol/L Anion Gap 13 (10-20) BUN 88 H (7-21) mg/dL Creatinine 2.3 H (0.5-1.4) mg/dL Est GFR ( Amer) 34 Est GFR (Non-Af Amer) 29 POC Glucose (mg/dL) 222 H (65-110) mg/dL Random Glucose 143 H (70-110) mg/dL Calcium 4.7 L* (8.4-10.5) mg/dL Total Bilirubin 0.8 (0.2-1.3) mg/dL AST 35 (15-59) U/L ALT 35 (7-56) U/L Alkaline Phosphatase 161 H (38-133) U/L Total Protein 4.5 L (5.8-8.3) g/dL Albumin 1.7 L (3.0-4.8) g/dL Globulin 2.9 gm/dL Albumin/Globulin Ratio 0.6 L (1.1-1.8) Urine Chloride (32-290) mmol/L Stool Occult Blood (NEGATIVE) 04/30/16 04/30/16 04/30/16 Range/Units 15:36 12:00 11:20 WBC 6.5 (4.5-11.0) 10^3/ul RBC 3.18 L (3.5-6.1) 10^6/uL Hgb 9.3 L (14.0-18.0) gm/dL Hct 26.9 L (42.0-52.0) % MCV 84.6 (80.0-105.0) fL MCH 29.2 (25.0-35.0) pg MCHC 34.6 (31.0-37.0) g/dl RDW 17.9 H (11.5-14.5) % Plt Count 24 L* (120.0-450.0) 10^3/uL Manual Plt Count (120-450) K/mm3 Platelet Evaluation (NORMAL) Sodium (132-148) mmol/L Potassium (3.6-5.0) mmol/L Chloride (98-107) mmol/L Carbon Dioxide (21-33) mmol/L Anion Gap (10-20) BUN (7-21) mg/dL Creatinine (0.5-1.4) mg/dL Est GFR ( Amer) Est GFR (Non-Af Amer) POC Glucose (mg/dL) 206 H (65-110) mg/dL Random Glucose (70-110) mg/dL Calcium (8.4-10.5) mg/dL Total Bilirubin (0.2-1.3) mg/dL AST (15-59) U/L ALT (7-56) U/L Alkaline Phosphatase (38-133) U/L Total Protein (5.8-8.3) g/dL Albumin (3.0-4.8) g/dL Globulin gm/dL Albumin/Globulin Ratio (1.1-1.8) Urine Chloride (32-290) mmol/L Stool Occult Blood Positive H (NEGATIVE) 04/30/16 04/29/16 04/29/16 Range/Units 07:13 22:01 19:50 WBC (4.5-11.0) 10^3/ul RBC (3.5-6.1) 10^6/uL Hgb (14.0-18.0) gm/dL Hct (42.0-52.0) % MCV (80.0-105.0) fL MCH (25.0-35.0) pg MCHC (31.0-37.0) g/dl RDW (11.5-14.5) % Plt Count (120.0-450.0) 10^3/uL Manual Plt Count (120-450) K/mm3 Platelet Evaluation (NORMAL) Sodium (132-148) mmol/L Potassium (3.6-5.0) mmol/L Chloride (98-107) mmol/L Carbon Dioxide (21-33) mmol/L Anion Gap (10-20) BUN (7-21) mg/dL Creatinine (0.5-1.4) mg/dL Est GFR ( Amer) Est GFR (Non-Af Amer) POC Glucose (mg/dL) 148 H 165 H (65-110) mg/dL Random Glucose (70-110) mg/dL Calcium (8.4-10.5) mg/dL Total Bilirubin (0.2-1.3) mg/dL AST (15-59) U/L ALT (7-56) U/L Alkaline Phosphatase (38-133) U/L Total Protein (5.8-8.3) g/dL Albumin (3.0-4.8) g/dL Globulin gm/dL Albumin/Globulin Ratio (1.1-1.8) Urine Chloride 39 (32-290) mmol/L Stool Occult Blood (NEGATIVE) Laboratory Results - last 24 hr 04/29/16 04/29/16 04/30/16 19:50 22:01 07:13 WBC RBC Hgb Hct MCV MCH MCHC RDW Plt Count Manual Plt Count Platelet Evaluation Sodium Potassium Chloride Carbon Dioxide Anion Gap BUN Creatinine Est GFR ( Amer) Est GFR (Non-Af Amer) POC Glucose (mg/dL) 165 H 148 H Random Glucose Calcium Total Bilirubin AST ALT Alkaline Phosphatase Total Protein Albumin Globulin Albumin/Globulin Ratio Urine Chloride 39 Stool Occult Blood 04/30/16 04/30/16 04/30/16 11:20 12:00 15:36 WBC 6.5 RBC 3.18 L Hgb 9.3 L Hct 26.9 L MCV 84.6 MCH 29.2 MCHC 34.6 RDW 17.9 H Plt Count 24 L* Manual Plt Count Platelet Evaluation Sodium Potassium Chloride Carbon Dioxide Anion Gap BUN Creatinine Est GFR ( Amer) Est GFR (Non-Af Amer) POC Glucose (mg/dL) 206 H Random Glucose Calcium Total Bilirubin AST ALT Alkaline Phosphatase Total Protein Albumin Globulin Albumin/Globulin Ratio Urine Chloride Stool Occult Blood Positive H 04/30/16 05/01/16 05/01/16 21:08 05:00 07:15 WBC 6.4 RBC 2.92 L Hgb 8.6 L Hct 24.1 L MCV 82.5 MCH 29.5 MCHC 35.7 RDW 17.9 H Plt Count 7 L* Manual Plt Count 10 L* Platelet Evaluation Low Sodium 142 Potassium 3.2 L Chloride 115 H Carbon Dioxide 17 L Anion Gap 13 BUN 88 H Creatinine 2.3 H Est GFR ( Amer) 34 Est GFR (Non-Af Amer) 29 POC Glucose (mg/dL) 222 H Random Glucose 143 H Calcium 4.7 L* Total Bilirubin 0.8 AST 35 ALT 35 Alkaline Phosphatase 161 H Total Protein 4.5 L Albumin 1.7 L Globulin 2.9 Albumin/Globulin Ratio 0.6 L Urine Chloride Stool Occult Blood Fingerstick Blood Sugar Results: 158 Critical Care Progress Note - Nutrition Nutrition: Nutrition Category Date Time Status Consistent Carbohydrate [DIET] Diets 04/29/16 Lunch Ordered Assessment/Plan - Assessment and Plan (Free Text) Plan: 65 y/o M with PMH of Pancreatic Cancer, Bladder Cancer, HTN, and DM presents to the ED with severe sepsis secondary to UTI complicated by gram negative choco bacteremia, resolved lactic acidosis and improved ADILENE. Pt was transfused 1 unit of platelets this morning, as he was severely thrombocytopenic. GI has decided to have no surgical intervention at this time. Pt received CT of abdomen/pelvis which showed severe cystitis. Pt has been on Merrem for the past 2 days and PO vancomycin has been added due to C. Diff positive toxin. Pt will be transferred to general medical floors today. Neuro: AAO x3 Monitor for acute mental status change Cardio: Hemodynamically stable Keep MAP >65 Will hold home BP meds at this time Pulm: No respiratory distress Nasal cannula Continue to keep O2 sat >90% GI: Possible concern for GI bleed, not acute Monitor Hg Repeat CBC in afternoon after platelet transfusion GI prophylaxis changed from protonix to pepcid Consistent carbohydrate diet Nephro: NS @ 150 cc/hr Continue Merrem to cover for UTI with gram negative rods Maintain euvolemia Strict I's and O's Replete electrolytes as needed Nephrology consulted, Dr. Shahid. ID: Afebrile, no leukocytosis Urine and blood cultures show gram negative rods at 48 hours Start Vancomycin one dose, and Merrem in the setting of sepsis Repeat blood culture shows gram negative rods. Awaiting sensitivities ID consulted, Dr. Erickson Maintain normothermia Heme: Anemia and Thrombocytopenia likely secondary to chemotherapy Recheck CBC in afternoon after platelet transfusion Continue to transfuse to keep Hg above 7 Endo: Insulin sliding scale Check glucose levels q6h Hold home metformin Maintain euglycemia Seen, reviewed, and discussed with attending CHRISTY GreenbergY-1 <Guanaco Leal - Last Filed: 05/01/16 17:16> CCU Objective - Vital Signs / Intake & Output Vital Signs (Last 4 hours): Vital Signs Temp Pulse Resp BP Pulse Ox 05/01/16 16:52 98 F 80 20 90/50 L 05/01/16 16:47 98 F 80 20 90/50 L 93 L 05/01/16 16:44 95 H 05/01/16 16:35 93 L 05/01/16 16:00 100 H 21 121/55 L 95 05/01/16 15:00 84 21 91/41 L 94 L 05/01/16 14:52 97 H 46 H 94 L 05/01/16 14:50 98 F 80 20 90/50 L 05/01/16 14:49 97 H 37 H 95 05/01/16 14:35 98 F 85 22 119/52 L 05/01/16 14:00 90 23 119/52 L 93 L Intake and Output (Last 8hrs): Intake & Output 05/01/16 05/01/16 05/01/16 06:59 14:59 22:59 Intake Total 2650 0 306 Output Total 2000 Balance 650 0 306 Weight 247 lb Intake: IV 1850 Right Hand 50 Left Hand 1800 Oral 800 Blood Product 0 281 Apheresis Plts Acda Lr 0 281 2nd Con Unit [id number] Other 25 Apheresis Plts Acda Lr 25 2nd Con Unit [id number] Output: Urine 2000 Urethral (Beard) 1999 Other: Voiding Method Indwelling Catheter - Medications Active Medications: Active Medications Generic Name Dose Route Start Last Admin Trade Name Freq PRN Reason Stop Dose Admin Chlordiazepoxide 25 mg 04/29/16 11:52 Librium PO Q8 PRN Agitation Protocol Sodium Chloride 1,000 mls @ 150 mls/hr 04/29/16 10:15 05/01/16 12:17 Sodium Chloride 0.9% IV 150 mls/hr .Q6H40M WIL Administration Meropenem 1 gm/ Sodium 100 mls @ 100 mls/hr 04/30/16 11:30 05/01/16 09:35 Chloride IVPB 05/14/16 11:31 100 mls/hr Q12 WIL Administration Protocol Famotidine 50 mls @ 100 mls/hr 04/30/16 22:00 05/01/16 10:44 Pepcid 20mg/50ml Premix IVPB 100 mls/hr Q12 WIL Administration Insulin Human Lispro 0 units 04/29/16 11:30 05/01/16 12:21 Humalog Low SC 1 units ACHS WIL Administration Protocol Saliva Substitute 0 ml 04/30/16 14:00 Saliva Substitute PO 5XD PRN DRY MOUTH Vancomycin HCl 125 mg 05/01/16 10:00 05/01/16 13:30 Vancocin 25 Mg/Ml (Oral Use) PO 125 mg QID WIL Administration Protocol - Patient Studies Lab Studies: Microbiology Studies 04/30/16 12:15 Blood Culture - Preliminary Blood Gram Negative Choco Gram Stain - Preliminary 04/30/16 12:00 Blood Culture - Preliminary Blood Gram Negative Choco Gram Stain - Final 04/29/16 17:20 C. difficile Antigen & Toxin A,B (M - Final Stool 04/29/16 11:30 MRSA Culture (Admit) - Final Nose MRSA NOT DETECTED Lab Studies 05/01/16 05/01/16 05/01/16 Range/Units 16:30 15:51 15:00 WBC (4.5-11.0) 10^3/ul RBC (3.5-6.1) 10^6/uL Hgb (14.0-18.0) gm/dL Hct (42.0-52.0) % MCV (80.0-105.0) fL MCH (25.0-35.0) pg MCHC (31.0-37.0) g/dl RDW (11.5-14.5) % Plt Count (120.0-450.0) 10^3/uL Manual Plt Count (120-450) K/mm3 Platelet Evaluation (NORMAL) Sodium (132-148) mmol/L Potassium (3.6-5.0) mmol/L Chloride (98-107) mmol/L Carbon Dioxide (21-33) mmol/L Anion Gap (10-20) BUN (7-21) mg/dL Creatinine (0.5-1.4) mg/dL Est GFR ( Amer) Est GFR (Non-Af Amer) POC Glucose (mg/dL) 193 H (65-110) mg/dL Random Glucose (70-110) mg/dL Calcium (8.4-10.5) mg/dL Total Bilirubin (0.2-1.3) mg/dL AST (15-59) U/L ALT (7-56) U/L Alkaline Phosphatase (38-133) U/L Total Protein (5.8-8.3) g/dL Albumin (3.0-4.8) g/dL Globulin gm/dL Albumin/Globulin Ratio (1.1-1.8) Urine Color Yellow (YELLOW) Urine Appearance Turbid (CLEAR) Urine pH >=9.0 (4.7-8.0) Ur Specific [place] 1.010 (1.005-1.035) Urine Protein 100 H (<30 mg/dL) mg/dL Urine Glucose (UA) Negative (NEGATIVE) mg/dL Urine Ketones Negative (NEGATIVE) mg/dL Urine Blood Large H (NEGATIVE) Urine Nitrate Negative (NEGATIVE) Urine Bilirubin Negative (NEGATIVE) Urine Urobilinogen 0.2 (<1 E.U./dL) E.U./dL Ur Leukocyte Esterase Large H (NEGATIVE) Fouzia/uL Urine RBC 2 - 5 (0-2) /hpf Urine WBC 10 - 15 (0-6) /hpf Urine Bacteria Many (NEG) Ur Random Creatinine 18 mg/dL Ur Random Sodium meq/L Urine Chloride (32-290) mmol/L 05/01/16 05/01/16 05/01/16 Range/Units 11:54 11:15 07:46 WBC (4.5-11.0) 10^3/ul RBC (3.5-6.1) 10^6/uL Hgb (14.0-18.0) gm/dL Hct (42.0-52.0) % MCV (80.0-105.0) fL MCH (25.0-35.0) pg MCHC (31.0-37.0) g/dl RDW (11.5-14.5) % Plt Count (120.0-450.0) 10^3/uL Manual Plt Count (120-450) K/mm3 Platelet Evaluation (NORMAL) Sodium (132-148) mmol/L Potassium (3.6-5.0) mmol/L Chloride (98-107) mmol/L Carbon Dioxide (21-33) mmol/L Anion Gap (10-20) BUN (7-21) mg/dL Creatinine (0.5-1.4) mg/dL Est GFR ( Amer) Est GFR (Non-Af Amer) POC Glucose (mg/dL) 198 H 158 H (65-110) mg/dL Random Glucose (70-110) mg/dL Calcium (8.4-10.5) mg/dL Total Bilirubin (0.2-1.3) mg/dL AST (15-59) U/L ALT (7-56) U/L Alkaline Phosphatase (38-133) U/L Total Protein (5.8-8.3) g/dL Albumin (3.0-4.8) g/dL Globulin gm/dL Albumin/Globulin Ratio (1.1-1.8) Urine Color (YELLOW) Urine Appearance (CLEAR) Urine pH (4.7-8.0) Ur Specific [place] (1.005-1.035) Urine Protein (<30 mg/dL) mg/dL Urine Glucose (UA) (NEGATIVE) mg/dL Urine Ketones (NEGATIVE) mg/dL Urine Blood (NEGATIVE) Urine Nitrate (NEGATIVE) Urine Bilirubin (NEGATIVE) Urine Urobilinogen (<1 E.U./dL) E.U./dL Ur Leukocyte Esterase (NEGATIVE) Fouzia/uL Urine RBC (0-2) /hpf Urine WBC (0-6) /hpf Urine Bacteria (NEG) Ur Random Creatinine mg/dL Ur Random Sodium 40 meq/L Urine Chloride (32-290) mmol/L 05/01/16 05/01/16 04/30/16 Range/Units 07:15 05:00 21:08 WBC 6.4 (4.5-11.0) 10^3/ul RBC 2.92 L (3.5-6.1) 10^6/uL Hgb 8.6 L (14.0-18.0) gm/dL Hct 24.1 L (42.0-52.0) % MCV 82.5 (80.0-105.0) fL MCH 29.5 (25.0-35.0) pg MCHC 35.7 (31.0-37.0) g/dl RDW 17.9 H (11.5-14.5) % Plt Count 7 L* (120.0-450.0) 10^3/uL Manual Plt Count 10 L* (120-450) K/mm3 Platelet Evaluation Low (NORMAL) Sodium 142 (132-148) mmol/L Potassium 3.2 L (3.6-5.0) mmol/L Chloride 115 H (98-107) mmol/L Carbon Dioxide 17 L (21-33) mmol/L Anion Gap 13 (10-20) BUN 88 H (7-21) mg/dL Creatinine 2.3 H (0.5-1.4) mg/dL Est GFR ( Amer) 34 Est GFR (Non-Af Amer) 29 POC Glucose (mg/dL) 222 H (65-110) mg/dL Random Glucose 143 H (70-110) mg/dL Calcium 4.7 L* (8.4-10.5) mg/dL Total Bilirubin 0.8 (0.2-1.3) mg/dL AST 35 (15-59) U/L ALT 35 (7-56) U/L Alkaline Phosphatase 161 H (38-133) U/L Total Protein 4.5 L (5.8-8.3) g/dL Albumin 1.7 L (3.0-4.8) g/dL Globulin 2.9 gm/dL Albumin/Globulin Ratio 0.6 L (1.1-1.8) Urine Color (YELLOW) Urine Appearance (CLEAR) Urine pH (4.7-8.0) Ur Specific [place] (1.005-1.035) Urine Protein (<30 mg/dL) mg/dL Urine Glucose (UA) (NEGATIVE) mg/dL Urine Ketones (NEGATIVE) mg/dL Urine Blood (NEGATIVE) Urine Nitrate (NEGATIVE) Urine Bilirubin (NEGATIVE) Urine Urobilinogen (<1 E.U./dL) E.U./dL Ur Leukocyte Esterase (NEGATIVE) Fouzia/uL Urine RBC (0-2) /hpf Urine WBC (0-6) /hpf Urine Bacteria (NEG) Ur Random Creatinine mg/dL Ur Random Sodium meq/L Urine Chloride (32-290) mmol/L 04/30/16 04/30/16 04/29/16 Range/Units 11:20 07:13 22:01 WBC (4.5-11.0) 10^3/ul RBC (3.5-6.1) 10^6/uL Hgb (14.0-18.0) gm/dL Hct (42.0-52.0) % MCV (80.0-105.0) fL MCH (25.0-35.0) pg MCHC (31.0-37.0) g/dl RDW (11.5-14.5) % Plt Count (120.0-450.0) 10^3/uL Manual Plt Count (120-450) K/mm3 Platelet Evaluation (NORMAL) Sodium (132-148) mmol/L Potassium (3.6-5.0) mmol/L Chloride (98-107) mmol/L Carbon Dioxide (21-33) mmol/L Anion Gap (10-20) BUN (7-21) mg/dL Creatinine (0.5-1.4) mg/dL Est GFR ( Amer) Est GFR (Non-Af Amer) POC Glucose (mg/dL) 206 H 148 H 165 H (65-110) mg/dL Random Glucose (70-110) mg/dL Calcium (8.4-10.5) mg/dL Total Bilirubin (0.2-1.3) mg/dL AST (15-59) U/L ALT (7-56) U/L Alkaline Phosphatase (38-133) U/L Total Protein (5.8-8.3) g/dL Albumin (3.0-4.8) g/dL Globulin gm/dL Albumin/Globulin Ratio (1.1-1.8) Urine Color (YELLOW) Urine Appearance (CLEAR) Urine pH (4.7-8.0) Ur Specific [place] (1.005-1.035) Urine Protein (<30 mg/dL) mg/dL Urine Glucose (UA) (NEGATIVE) mg/dL Urine Ketones (NEGATIVE) mg/dL Urine Blood (NEGATIVE) Urine Nitrate (NEGATIVE) Urine Bilirubin (NEGATIVE) Urine Urobilinogen (<1 E.U./dL) E.U./dL Ur Leukocyte Esterase (NEGATIVE) Fouzia/uL Urine RBC (0-2) /hpf Urine WBC (0-6) /hpf Urine Bacteria (NEG) Ur Random Creatinine mg/dL Ur Random Sodium meq/L Urine Chloride (32-290) mmol/L 04/29/16 Range/Units 19:50 WBC (4.5-11.0) 10^3/ul RBC (3.5-6.1) 10^6/uL Hgb (14.0-18.0) gm/dL Hct (42.0-52.0) % MCV (80.0-105.0) fL MCH (25.0-35.0) pg MCHC (31.0-37.0) g/dl RDW (11.5-14.5) % Plt Count (120.0-450.0) 10^3/uL Manual Plt Count (120-450) K/mm3 Platelet Evaluation (NORMAL) Sodium (132-148) mmol/L Potassium (3.6-5.0) mmol/L Chloride (98-107) mmol/L Carbon Dioxide (21-33) mmol/L Anion Gap (10-20) BUN (7-21) mg/dL Creatinine (0.5-1.4) mg/dL Est GFR ( Amer) Est GFR (Non-Af Amer) POC Glucose (mg/dL) (65-110) mg/dL Random Glucose (70-110) mg/dL Calcium (8.4-10.5) mg/dL Total Bilirubin (0.2-1.3) mg/dL AST (15-59) U/L ALT (7-56) U/L Alkaline Phosphatase (38-133) U/L Total Protein (5.8-8.3) g/dL Albumin (3.0-4.8) g/dL Globulin gm/dL Albumin/Globulin Ratio (1.1-1.8) Urine Color (YELLOW) Urine Appearance (CLEAR) Urine pH (4.7-8.0) Ur Specific [place] (1.005-1.035) Urine Protein (<30 mg/dL) mg/dL Urine Glucose (UA) (NEGATIVE) mg/dL Urine Ketones (NEGATIVE) mg/dL Urine Blood (NEGATIVE) Urine Nitrate (NEGATIVE) Urine Bilirubin (NEGATIVE) Urine Urobilinogen (<1 E.U./dL) E.U./dL Ur Leukocyte Esterase (NEGATIVE) Fouzia/uL Urine RBC (0-2) /hpf Urine WBC (0-6) /hpf Urine Bacteria (NEG) Ur Random Creatinine mg/dL Ur Random Sodium meq/L Urine Chloride 39 (32-290) mmol/L Laboratory Results - last 24 hr 04/29/16 04/29/16 04/30/16 19:50 22:01 07:13 WBC RBC Hgb Hct MCV MCH MCHC RDW Plt Count Manual Plt Count Platelet Evaluation Sodium Potassium Chloride Carbon Dioxide Anion Gap BUN Creatinine Est GFR ( Amer) Est GFR (Non-Af Amer) POC Glucose (mg/dL) 165 H 148 H Random Glucose Calcium Total Bilirubin AST ALT Alkaline Phosphatase Total Protein Albumin Globulin Albumin/Globulin Ratio Urine Color Urine Appearance Urine pH Ur Specific [place] Urine Protein Urine Glucose (UA) Urine Ketones Urine Blood Urine Nitrate Urine Bilirubin Urine Urobilinogen Ur Leukocyte Esterase Urine RBC Urine WBC Urine Bacteria Ur Random Creatinine Ur Random Sodium Urine Chloride 39 04/30/16 04/30/16 05/01/16 11:20 21:08 05:00 WBC 6.4 RBC 2.92 L Hgb 8.6 L Hct 24.1 L MCV 82.5 MCH 29.5 MCHC 35.7 RDW 17.9 H Plt Count 7 L* Manual Plt Count Platelet Evaluation Low Sodium 142 Potassium 3.2 L Chloride 115 H Carbon Dioxide 17 L Anion Gap 13 BUN 88 H Creatinine 2.3 H Est GFR ( Amer) 34 Est GFR (Non-Af Amer) 29 POC Glucose (mg/dL) 206 H 222 H Random Glucose 143 H Calcium 4.7 L* Total Bilirubin 0.8 AST 35 ALT 35 Alkaline Phosphatase 161 H Total Protein 4.5 L Albumin 1.7 L Globulin 2.9 Albumin/Globulin Ratio 0.6 L Urine Color Urine Appearance Urine pH Ur Specific [place] Urine Protein Urine Glucose (UA) Urine Ketones Urine Blood Urine Nitrate Urine Bilirubin Urine Urobilinogen Ur Leukocyte Esterase Urine RBC Urine WBC Urine Bacteria Ur Random Creatinine Ur Random Sodium Urine Chloride 05/01/16 05/01/16 05/01/16 07:15 07:46 11:15 WBC RBC Hgb Hct MCV MCH MCHC RDW Plt Count Manual Plt Count 10 L* Platelet Evaluation Sodium Potassium Chloride Carbon Dioxide Anion Gap BUN Creatinine Est GFR ( Amer) Est GFR (Non-Af Amer) POC Glucose (mg/dL) 158 H Random Glucose Calcium Total Bilirubin AST ALT Alkaline Phosphatase Total Protein Albumin Globulin Albumin/Globulin Ratio Urine Color Urine Appearance Urine pH Ur Specific [place] Urine Protein Urine Glucose (UA) Urine Ketones Urine Blood Urine Nitrate Urine Bilirubin Urine Urobilinogen Ur Leukocyte Esterase Urine RBC Urine WBC Urine Bacteria Ur Random Creatinine Ur Random Sodium 40 Urine Chloride 05/01/16 05/01/16 05/01/16 11:54 15:00 15:51 WBC RBC Hgb Hct MCV MCH MCHC RDW Plt Count Manual Plt Count Platelet Evaluation Sodium Potassium Chloride Carbon Dioxide Anion Gap BUN Creatinine Est GFR ( Amer) Est GFR (Non-Af Amer) POC Glucose (mg/dL) 198 H 193 H Random Glucose Calcium Total Bilirubin AST ALT Alkaline Phosphatase Total Protein Albumin Globulin Albumin/Globulin Ratio Urine Color Urine Appearance Urine pH Ur Specific [place] Urine Protein Urine Glucose (UA) Urine Ketones Urine Blood Urine Nitrate Urine Bilirubin Urine Urobilinogen Ur Leukocyte Esterase Urine RBC Urine WBC Urine Bacteria Ur Random Creatinine 18 Ur Random Sodium Urine Chloride 05/01/16 16:30 WBC RBC Hgb Hct MCV MCH MCHC RDW Plt Count Manual Plt Count Platelet Evaluation Sodium Potassium Chloride Carbon Dioxide Anion Gap BUN Creatinine Est GFR ( Amer) Est GFR (Non-Af Amer) POC Glucose (mg/dL) Random Glucose Calcium Total Bilirubin AST ALT Alkaline Phosphatase Total Protein Albumin Globulin Albumin/Globulin Ratio Urine Color Yellow Urine Appearance Turbid Urine pH >=9.0 Ur Specific [place] 1.010 Urine Protein 100 H Urine Glucose (UA) Negative Urine Ketones Negative Urine Blood Large H Urine Nitrate Negative Urine Bilirubin Negative Urine Urobilinogen 0.2 Ur Leukocyte Esterase Large H Urine RBC 2 - 5 Urine WBC 10 - 15 Urine Bacteria Many Ur Random Creatinine Ur Random Sodium Urine Chloride Critical Care Progress Note - Nutrition Nutrition: Nutrition Category Date Time Status Consistent Carbohydrate [DIET] Diets 04/29/16 Lunch Ordered Addendum Addendum: 05/01/16 17:15 patient was seen and examined with Dr. Matthew. Please seeDrHemant Leal note
--- NOTE | 2016-05-01 11:28 | PN ---
DATE: 05/01/2016 I saw him in the intensive care unit this morning. He has a lot to say this morning. He is talking a lot. He is fairly comfortable in bed, no acute pain. He has got multiple issues from hypotension, dehydration, acute renal failure, severe anemia, UTI, NSTEMI, pancreatic cancer. He is currently ge tting medicated, and he is trying to eat. PHYSICAL EXAMINATION: VITAL SIGNS: He has a 99.1 temp, 88 pulse, 98/54 blood pressure, 24 respiratory rate, 94% O2 sat on room air. HEAD: Atraumatic, normocephalic. His throat is dry. NECK: Supple. HEART: Regular rate. LUNGS: Decreased breath sounds, poor inspiration, but clear. ABDOMEN: Soft, morbidly obese, nontender. EXTREMITIES: Have trace edema. MEDICATIONS: He is on insulin, Librium, Merrem, Pepcid, potassium replacement, saliva, IV fluids, an d vancomycin. He is also getting calcium replacement. LABORATORY DATA: He has a 142 sodium. Potassium is 3.2 - being replaced. BUN is 88. Creatinine is 2.3, much better, coming down. Sugar is 143. Calcium is down to 4.7 - being replaced. Total bili is 0.8. AST is 35. ALT is 35, alk phos 161. Total protein is 4.5. White count is 6.4. Hemoglobin is down to 8.6 from 9.3. He was transfusing. He was 7.1. He might need to be transfused if it con tinues to drop. His platelet count is also down to 7; manual count is 10. He is being transfused pl atelets too I understand. I discussed that with the intensive care doctor. He is being seen by the press operator assistant, infectious dis ease, cardiology, hematology/oncology, renal. He is in deep trouble. He has so many issues going on . He has got anemia. He will get transfused. He has pancreatic cancer, renal insufficiency, hypert ension, high cholesterol, COPD, diabetes, borderline troponins. I will continue with aggressive temo tment and care, and we will transfer him out of the intensive care unit since he is doing a little bi t better with his kidney function. Melquiades Dorsey DO cc: [id number] TT: 05/01/2016 11:27:18 Confirmation # [id number] Dictation # [id number]
--- NOTE | 2016-05-01 12:39 | PN ---
DATE: 05/01/2016 The patient is seen in the intensive care unit. He denies any dyspnea, but does appear to be short of breath in my opinion, especially as he speaks with me. He is currently receiving normal saline at 150 mL per hour, and receiving potassium intravenously as well. Beard catheter remains in place with dark urine. He does have diarrhea, and is now noted to be C. diff positive in the stool, but he denies any abdominal pain. With conversation, he appears to be confabulating somewhat, but also appears to have exceptionally poor insight into his medical problems. He denies any chest pain or palpitations. PHYSICAL EXAMINATION: VITAL SIGNS: Blood pressure is 98/54 right now, and over the last 24-hour period, minimum blood pressure has been approximately 92/46 with a maximum of 123/58. Heart rate is 88 beats per minute, but has ranged from the 80s to approximately 100 beats per minute in the last 24-hour period with monitoring showing sinus rhythm and sinus tachycardia respectively. Oral temperature is 99.1 degrees, and this is his T-max in the last 24-hour period. Respiratory rate is 24, but has ranged from approximately 16 up to 33 breaths per minute in the last 24-hour period. Oxygen saturation 94%, but has ranged from 94-98%, but the patient is currently on room air. I's and O's are documented as 4500/ 3100. The remainder of the exam was as follows: HEENT: The patient was normocephalic, atraumatic. There was no sinus tenderness. He had pale conjunctivae but was anicteric. NECK: There was no jugular venous distention. He generally appeared to be unkempt in appearance. LUNGS: Lung smith were auscultated anteriorly, and breath sounds were quite distant, but there were no rales, rhonchi, or wheezing that I could appreciate. CARDIAC: Regular rate and rhythm without any rubs or gallops. Heart sounds were noted to be somewhat distant as well. I was unable to appreciate any murmurs or rubs. ABDOMEN: Distended but nontender, without any rebounding, guarding, or rigidity. There was no hepatosplenomegaly that I could appreciate. He did have a vertical scar in his upper epigastric area. EXTREMITIES: Had trace sacral edema. He did have chronic stasis changes over both shins, however. NEUROLOGIC: The patient was awake, but appeared to be able to confabulate, and perhaps he was somewhat confused. VASCULAR: Had no bruits. SKIN: As stated above with chronic stasis changes over both shins. LABORATORY STUDIES: White count is 6.4. H and H is 8.6/24.1 with a platelet count that is 10,000. Platelet count was 10 on manual. Fibrinogen level was 556, which is elevated. Sodium today is 142 with a potassium of 3.2, chloride 115, bicarbonate 17. BUN/creatinine 88/2.3 with a glucose of 143. AST/ALT is 35/35. Alkaline phosphatase is 161. Total protein/albumin is 4.5/1.7 and patient is noted to have a calcium of 4.7 corrects to 6.5, which is still low. Most recent phosphorus level was low at 6.2. Urine chloride had been 39, and urine sodium was 47 two days ago. The patient is noted to be guaiac positive. Blood cultures as well as urine cultures revealed gram negative rods. CT scan of the patient's abdomen and pelvis performed yesterday (without oral or IV contrast) revealed severe mural thickening and pneumatosis in the martinez of the urinary bladder with adjacent extraluminal air collection consistent with severe cystitis with evidence of fluid consistent with hemorrhage in the bladder and pyelonephritis also. Echocardiogram was also performed yesterday, which revealed normal LV size and function, but with mild pulmonary hypertension. Right upper extremity venous Doppler was negative for DVT. IMPRESSION AND PLAN: The patient is a 65-year-old gentleman with pancreatic cancer for which he has been receiving gemcitabine, as well as Abraxane with his most recent chemotherapy having occurred on 04/13/2016, and for which he has also received chemotherapy, also with a known history of bladder cancer for which a Whipple was attempted, but had to be canceled, as per the patient, type 2 diabetes mellitus is noninsulin dependent, and hypertension with a baseline blood pressure of 140/90, who was originally admitted with generalized weakness , as well several days of diarrhea and dark stool. He was noted to have acute kidney injury with rhabdomyolysis, lactic acidosis, and hypocalcemia. The acute kidney injury was likely secondary to his anemia (perhaps upper gastrointestinal bleed as manifested by melena, and now disproportionally elevated BUN versus creatinine) with concurrent use of hydrochlorothiazide and valsartan to treat his hypertension at home and ibuprofen for which he was self- medicating. Additionally, rhabdomyolysis has contributed to the acute kidney injury via myoglobinuria and pigment nephropathy. 1. With intravenous fluids, the patient's acute kidney injury is slowly improving. His creatinine is now 2.3. Of note, however, his baseline appears to be 1.0, and he likely was at his baseline in the week prior to admission since he did have labs performed prior to a CT scan with IV contrast that he received at [facility]. 2. Based on his last urine studies from the evening of 04/29, his fractional excretion of sodium was 8.9%, and by then, the effectiveness of his hydrochlorothiazide that he was taking prior to admission should have resolved. Therefore, based on these labs studies, the patient would no longer be deemed to be volume responsive, and I would decrease his intravenous fluids at this time. If he is not n.p.o., they can be discontinued. If he is n.p.o., then I would place him on 1/2 normal saline with 75 mEq of sodium bicarbonate per liter and 20 mEq of potassium chloride at 75 mL hour. 3. The patient's laboratory studies today reveal a corrected anion gap of approximately 16 when taking into account his hypoalbuminemia, which is likely secondary to his diarrhea induced by Clostridium difficile colitis. Usually with metabolic acidosis, patients are hyperkalemic. However, the patient is not because of continued potassium losses in the urine from Clostridium difficile colitis, but we will check magnesium since magnesium losses in the urine can be seen with several different chemotherapeutic agents. 4. The patient is also noted to be hypocalcemic. Chvostek's sign is negative on exam. I would check an EKG, and if his QT interval is prolonged, we can start him on a calcium gluconate infusion with 10 grams of calcium gluconate per liter of D5W given at 50 mL per hour in the arm opposite to where he would be receiving his sodium bicarbonate infusion described above. Hypomagnesemia can result in hypoparathyroidism, and so we will also check a PTH level with his next set of labs as well. Additionally, hyperphosphatemia can also result in reciprocal hypocalcemia, and we will also check a phosphorus level also on this patient. He did have rhabdomyolysis, and so we will continue to monitor his CPK. Also on the differential diagnosis of hypocalcemia would be precipitation in damaged tissue, and so we can also check his amylase and lipase as well with his next set of labs. 5. It appears that the patient has received 4 units of packed red blood cells, but his hemoglobin has not increased appropriately. This, as well as the fact that he is guaiac-positive, and continues to have a disproportionally elevated BUN versus creatinine even though urine studies do not suggest ____ responsiveness or suspicious for upper gastrointestinal bleed, certainly, the patient would have risk factors including the fact that he is thrombocytopenic and in the intensive care unit. I would consider upper endoscopy for this patient. 6. For hypokalemia, we can give him 20 mEq of potassium chloride intravenously for 3 doses. 7. For his Clostridium difficile colitis, continue vancomycin 125 mg orally every 6 hours for now. 8. The patient is also noted to have pyelonephritis with severe sepsis secondary to a genitourinary source, having gram-negative rods in the blood as well as the urine, which are currently pending identification, for which he is currently receiving meropenem with today being day #2. He did receive 1 dose of vancomycin as well. It is noted that the CT scan of his abdomen did reveal pneumatosis in his bladder, which is also ominous given his known history of bladder cancer. Consider urology evaluation. 9. For deep venous thrombosis prophylaxis in this hospitalized patient, we can use sequential compression devices, but certainly we will need to avoid heparin given the fact that he is already thrombocytopenic. 10. Since we are concerned about the possibility of upper gastrointestinal bleed, I would change his famotidine to pantoprazole. H2 receptor antagonist will more likely result in thrombocytopenia. 11. We will obviously need to continue to hold all his antihypertensive agents , as well as his metformin. 12. Overall, the patient's prognosis remains poor. 13. Cardiology followup is appreciated. The mild increase in his troponins was thought to likely be secondary to acute kidney injury. REVIEW OF SYSTEMS, PAST MEDICAL HISTORY, SOCIAL HISTORY AND FAMILY HISTORY: Were all reviewed, and there were no new changes, and more than 35 minutes were spent in the care of this ICU patient today. MARIO Tsai MD cc: [phone] TT: 05/01/2016 12:22:13 Confirmation # [id number] Dictation # [id number] jn MTDD
--- NOTE | 2016-05-01 13:23 | PN ---
DATE: 05/01/2016 The patient seen and examined at bedside. He is comfortable. He talks full sentences. He feels subjectively better. He is not in respiratory or otherwise distress. PHYSICAL EXAMINATION: VITAL SIGNS: Temperature 99.1, blood pressure 98/54, respiratory rate 24, oxygen saturation 94% on room air. HEAD AND NECK: Atraumatic. LUNGS: Clear to auscultation bilaterally. HEART: Regular rate and rhythm. S1, S2 normal. ABDOMEN: Soft, nontender, nondistended. MUSCULOSKELETAL: There is a trace bilateral pedal edema with changes consistent with dermatitis stasis. SKIN: Moist. PSYCHIATRIC: The patient is alert and oriented x 3. NEUROLOGICAL: The patient moves all extremities spontaneously. LABORATORY DATA: WBC 6.4, hemoglobin 8.6, platelet count 10 (one unit of platelets are ordered). Sodium 142, potassium 3.2 (supplemented), chloride 115 , carbon dioxide 17, BUN 88, creatinine 2.3 down from 3.6, glucose 198, calcium 4.7; however, albumin 1.7. AST 35, ALT 35, glucose 143. Blood culture and urine culture gram-negative rods. MEDICATIONS: Regular insulin sliding scale low protocol, Librium, meropenem, Pepcid, normal saline 150 mL per hour, vancomycin 125 mg p.o. q.i.d. ASSESSMENT AND PLAN: This is a 65-year-old gentleman with history of pancreatic cancer status post radiation and chemotherapy, who presented to intensive care unit for severe sepsis secondary to GNR UTI, complicated by multiorgan system failure and GNR bacteremia. At present time, patient substantially improved. He is hemodynamically and respiratory brothers relatively stable. He is pancytopenic which was attributed by gastrointestinal and oncology service to recent cycle of chemotherapy and radiation therapy. We will transfuse blood products as needed. One bag of single donor platelets will be transfused. In the setting of hemodynamic stability, absence of acute coronary syndrome and no active hemorrhage--threshold for blood transfusion will be 7.0. to keep Hb level 7-9. The patient is on broad-spectrum antibiotics. His acute kidney injury substantially improved. His lactic acidosis almost resolved. He is alert, awake and oriented x 3. He is comfortable. I would continue to target euvolemia, euglycemia, normothermia and oxygen saturation more than 90%. Deep venous thrombosis, gastrointestinal prophylaxis. ccm time 40 min Guanaco Leal MD cc: [id number] TT: 05/01/2016 13:22:29 Confirmation # [id number] Dictation # [id number] MTDD
[2016-05-01 16:46] LABS: PH,URINE >=9.0 (4.7-8.0); URINE APPEARANCE TURBID (CLEAR); URINE BILIRUBIN NEGATIVE (NEGATIVE); URINE BLOOD LARGE (NEGATIVE); URINE COLOR YELLOW (YELLOW); URINE GLUCOSE (UA) NEGATIVE (NEGATIVE); URINE KETONE NEGATIVE (NEGATIVE); URINE LEUKOCYTE ESTERASE LARGE Leu/uL (NEGATIVE); URINE PROTEIN 100 mg/dL (<30 mg/dL); URINE UROBILINOGEN 0.2 E.U./dL (<1 E.U./dL)
[2016-05-01 16:57] LABS: URINE BACTERIA MANY (NEG)
[2016-05-01 18:28] LABS: HEMATOCRIT 25.5 % (42.0-52.0); MEAN CELL VOLUME 83.3 fL (80.0-105.0); MEAN CORPUSCULAR HEMOGLOBIN 29.4 pg (25.0-35.0); MEAN CORPUSCULAR HGB CONC 35.3 g/dl (31.0-37.0); RED CELL DISTRIBUTION WIDTH 17.9 % (11.5-14.5); WHITE BLOOD COUNT 6.1 10^3/ul (4.5-11.0)
[2016-05-01 18:35] LABS: PLATELET COUNT 18 10^3/uL (120.0-450.0)
[2016-05-02] MEDS: Sodium Chloride 0.9% 1,000 ML IV SCH ×3 (04:45→19:11)
[2016-05-02 05:25] LABS: MEAN CELL VOLUME 83.3 fL (80.0-105.0); MEAN CORPUSCULAR HEMOGLOBIN 29.3 pg (25.0-35.0); MEAN CORPUSCULAR HGB CONC 35.2 g/dl (31.0-37.0); RED CELL DISTRIBUTION WIDTH 18.2 % (11.5-14.5)
[2016-05-02 05:32] LABS: PLATELET COUNT 41 10^3/uL (120.0-450.0)
--- NOTE | 2016-05-02 06:48 | CP.PCM.PN ---
<Scott Fraser - Last Filed: 05/02/16 10:13> Subjective - Date & Time of Evaluation Date of Evaluation: 05/02/16 Time of Evaluation: 06:41 - Subjective Subjective: Medicine PGY1 - GI service Patient seen and examined at bedside this morning. Reported no acute events overnight or new complaints. Stated he had multiple soft, brown bowel movements overnight with no overt signs of bleeding. Tolerating PO intake without issue. Discussed recent lab results/workup and treatment. Denies melena, hematochezia, hematemesis. Denies chest pain, palpitations, SOB, nausea, vomiting, fever, chills, cough. Admits to occasional diarrhea. 12 point ROS as per above, otherwise negative. Objective - Vital Signs/Intake and Output Vital Signs (last 24 hours): Temp Pulse Resp BP Pulse Ox 98.6 F 92 H 22 131/65 94 L 05/02/16 04:00 05/02/16 06:00 05/02/16 06:00 05/02/16 06:00 05/02/16 06:00 Intake and Output: 05/01/16 05/02/16 18:59 06:59 Intake Total 306 2850 Output Total 1600 Balance 306 1250 - Medications Medications: Current Medications Chlordiazepoxide (Librium) 25 mg PO Q8 PRN; Protocol PRN Reason: Agitation Last Admin: 05/02/16 04:43 Dose: 25 mg Sodium Chloride (Sodium Chloride 0.9%) 1,000 mls @ 150 mls/hr IV .Q6H40M WIL Last Admin: 05/02/16 04:45 Dose: 150 mls/hr Meropenem 1 gm/ Sodium (Chloride) 100 mls @ 100 mls/hr IVPB Q12 WIL PRN Reason: Protocol Stop: 05/14/16 11:31 Last Admin: 05/01/16 21:57 Dose: 100 mls/hr Famotidine (Pepcid 20mg/50ml Premix) 50 mls @ 100 mls/hr IVPB Q12 WIL Last Admin: 05/01/16 21:19 Dose: 100 mls/hr Insulin Human Lispro (Humalog Low) 0 units SC ACHS WIL PRN Reason: Protocol Last Admin: 05/01/16 21:57 Dose: Not Given Saliva Substitute (Saliva Substitute) 0 ml PO 5XD PRN PRN Reason: DRY MOUTH Vancomycin HCl (Vancocin 25 Mg/Ml (Oral Use)) 125 mg PO QID WIL PRN Reason: Protocol Last Admin: 05/01/16 21:59 Dose: 125 mg - Labs Labs: 05/02/16 05:00 05/01/16 05:00 PT 14.4 Seconds (9.9-11.8) H 04/29/16 02:40 INR 1.33 (0.93-1.08) H 04/29/16 02:40 APTT 30.4 Seconds (23.7-30.8) 05/01/16 19:30 - Constitutional Appears: No Acute Distress, Chronically Ill - Head Exam Head Exam: ATRAUMATIC, NORMAL INSPECTION, NORMOCEPHALIC - Eye Exam Eye Exam: EOMI, PERRL - ENT Exam ENT Exam: Mucous Membranes Dry - Respiratory Exam Respiratory Exam: Clear to Ausculation Bilateral. absent: Rales, Rhonchi, Wheezes, Respiratory Distress - Cardiovascular Exam Cardiovascular Exam: +S1, +S2. absent: Gallop, Rubs, Murmur - GI/Abdominal Exam GI & Abdominal Exam: Distended, Soft, Normal Bowel Sounds. absent: Guarding, Rigid, Tenderness, Rebound - Neurological Exam Neurological Exam: Alert, Awake, Oriented x3 - Psychiatric Exam Psychiatric exam: Normal Affect, Normal Mood - Skin Skin Exam: Dry, Intact, Normal Color, Warm Additional comments: b/l lower extremity chronic venous stasis Assessment and Plan - Assessment and Plan (Free Text) Assessment: 65yo male with history of pancreatic ca, bladder ca, hypertension and DMT2 that presented c/o generalized weakness and fatigue associated with multiple episodes of dark-colored, watery diarrhea for 3 days prior to presentation 1. Normocytic anemia 2. Thrombocytopenia 3. Acute kidney injury 4. Gram negative carmen Bacteremia 5. Cdiff 6. Pancreatic/Bladder Ca 7. Hypertension 8. Diabetes Mellitus type 2 Plan: -Anemia/thrombocytopenia likely secondary to chemotherapeutic agents; Patient receiving chemotherapy on combination gemcitabine and abraxane along with radiation -No overt signs of GI bleeding (melena, hematochezia, hematemesis) -Continue antibiotic management for bacteremia/cystitis as per ID recommendations -Continue PO vanc for cdiff colitis -Continue to monitor H/H and transfuse as indicated -Continue H2 vin therapy rather than PPI therapy which has potential to worsen existing thrombocytopenia -Creatinine improving, continue to monitor and follow up nephrology recommendations -CT abd/pelvis reviewed -follow up urology recommendations considering bladder cancer/hydroureter -no signs of biliary obstruction due to pancreatic cancer at this time -Currently no planned GI interventions in the absence of overt GI bleeding and hemodynamic instability along with significant thrombocytopenia Patient seen and case discussed with attending, Dr. Maier <Michael Maier MD - Last Filed: 05/02/16 10:57> Objective - Vital Signs/Intake and Output Vital Signs (last 24 hours): Temp Pulse Resp BP Pulse Ox 98.6 F 92 H 22 131/65 94 L 05/02/16 04:00 05/02/16 06:00 05/02/16 06:00 05/02/16 06:00 05/02/16 06:00 Intake and Output: 05/02/16 05/02/16 06:59 18:59 Intake Total 2850 Output Total 1600 Balance 1250 - Medications Medications: Current Medications Chlordiazepoxide (Librium) 25 mg PO Q8 PRN; Protocol PRN Reason: Agitation Last Admin: 05/02/16 04:43 Dose: 25 mg Sodium Chloride (Sodium Chloride 0.9%) 1,000 mls @ 150 mls/hr IV .Q6H40M WIL Last Admin: 05/02/16 04:45 Dose: 150 mls/hr Meropenem 1 gm/ Sodium (Chloride) 100 mls @ 100 mls/hr IVPB Q12 WIL PRN Reason: Protocol Stop: 05/14/16 11:31 Last Admin: 05/01/16 21:57 Dose: 100 mls/hr Famotidine (Pepcid 20mg/50ml Premix) 50 mls @ 100 mls/hr IVPB Q12 WIL Last Admin: 05/01/16 21:19 Dose: 100 mls/hr Potassium Chloride (Potassium Chloride 10 Meq/100 Ml) 100 mls @ 100 mls/hr IVPB Q2H WIL Stop: 05/02/16 11:59 Insulin Human Lispro (Humalog Low) 0 units SC ACHS WIL PRN Reason: Protocol Last Admin: 05/02/16 08:05 Dose: 1 units Saliva Substitute (Saliva Substitute) 0 ml PO 5XD PRN PRN Reason: DRY MOUTH Vancomycin HCl (Vancocin 25 Mg/Ml (Oral Use)) 125 mg PO QID WIL PRN Reason: Protocol Last Admin: 05/01/16 21:59 Dose: 125 mg - Labs Labs: 05/02/16 05:00 05/02/16 08:10 PT 14.4 Seconds (9.9-11.8) H 04/29/16 02:40 INR 1.33 (0.93-1.08) H 04/29/16 02:40 APTT 30.4 Seconds (23.7-30.8) 05/01/16 19:30 Attending/Attestation - Attestation I have personally seen and examined this patient.: Yes I have fully participated in the care of the patient.: Yes I have reviewed all pertinent clinical information, including history, physical exam and plan: Yes Notes (Text): 05/02/16 10:49 Patient seen and examined with GI fellow and resident on rounds this am in MICU - This is a 65 year old male with history of Pancreatic cancer, Bladder Cancer, HTN, DM2 admitted with weakness and fatigue, found to have anemia, renal failure , and GNR bacteremia likely due to cystitis. Also found to have C diff infection on oral vancomycin. No overt signs of bleeding with stable H/Hct. Supportive care. No s/s of cholangitis or biliary obstruction at this point. Will sign off in setting of no GI bleeding or biliary obstruction.
[2016-05-02 06:55] LABS: WHITE BLOOD COUNT 7.3 10^3/ul (4.5-11.0)
[2016-05-02] MEDS: Insulin Lispro (humaLOG) LOW Coverage SC SCH ×4 (08:05→22:51)
--- NOTE | 2016-05-02 08:40 | CP.PCM.PN ---
Subjective - Date & Time of Evaluation Date of Evaluation: 05/02/16 Time of Evaluation: 07:50 - Subjective Subjective: Patient not complaining of abdominal pain, currently afebrile. Objective - Vital Signs/Intake and Output Vital Signs (last 24 hours): Temp Pulse Resp BP Pulse Ox 98.6 F 92 H 22 131/65 94 L 05/02/16 04:00 05/02/16 06:00 05/02/16 06:00 05/02/16 06:00 05/02/16 06:00 Intake and Output: 05/01/16 05/02/16 18:59 06:59 Intake Total 306 2850 Output Total 1600 Balance 306 1250 - Medications Medications: Current Medications Chlordiazepoxide (Librium) 25 mg PO Q8 PRN; Protocol PRN Reason: Agitation Last Admin: 05/02/16 04:43 Dose: 25 mg Sodium Chloride (Sodium Chloride 0.9%) 1,000 mls @ 150 mls/hr IV .Q6H40M WIL Last Admin: 05/02/16 04:45 Dose: 150 mls/hr Meropenem 1 gm/ Sodium (Chloride) 100 mls @ 100 mls/hr IVPB Q12 WIL PRN Reason: Protocol Stop: 05/14/16 11:31 Last Admin: 05/01/16 21:57 Dose: 100 mls/hr Famotidine (Pepcid 20mg/50ml Premix) 50 mls @ 100 mls/hr IVPB Q12 WIL Last Admin: 05/01/16 21:19 Dose: 100 mls/hr Insulin Human Lispro (Humalog Low) 0 units SC ACHS WIL PRN Reason: Protocol Last Admin: 05/01/16 21:57 Dose: Not Given Saliva Substitute (Saliva Substitute) 0 ml PO 5XD PRN PRN Reason: DRY MOUTH Vancomycin HCl (Vancocin 25 Mg/Ml (Oral Use)) 125 mg PO QID WIL PRN Reason: Protocol Last Admin: 05/01/16 21:59 Dose: 125 mg - Labs Labs: 05/02/16 05:00 05/01/16 05:00 PT 14.4 Seconds (9.9-11.8) H 04/29/16 02:40 INR 1.33 (0.93-1.08) H 04/29/16 02:40 APTT 30.4 Seconds (23.7-30.8) 05/01/16 19:30 - Constitutional Appears: Non-toxic, No Acute Distress - Head Exam Head Exam: NORMAL INSPECTION - Respiratory Exam Respiratory Exam: Decreased Breath Sounds - Cardiovascular Exam Cardiovascular Exam: +S1, +S2 - GI/Abdominal Exam GI & Abdominal Exam: Soft. absent: Tenderness Assessment and Plan - Assessment and Plan (Free Text) Plan: Assessment Severe sepsis with acute renal failure secondary to gram negative bacilli bacteremia probably from urinary tract infection and pyelonephritis, R/O port infection; also with C diff associated diarrhea acute anemia Pancreatic cancer S/P chemotherapy and radiation therapy and surgery HTN DM obesity with BMI 34 Plan continue Meropenem day 3 (but 04/30 cx are still positive, awaiting 05/01 cx) pending identification and sensitivities of the gram negative bacilli in the blood; urine is showing Klebsiella; CT Abdomen and pelvis reviewed; continue PO Vancomycin (day 2) Follow up URology evaluation May consider antibiotic lock therapy for the port if port needs to remain Will follow clinically Overall prognosis is poor
[2016-05-02 08:52] LABS: ALB/GLOB RATIO 0.6 (1.1-1.8); ALKALINE PHOSPHATASE 200 U/L (38-133); ALT/SGPT 36 U/L (7-56); AST/SGOT 32 U/L (15-59); BILIRUBIN,TOTAL 1.2 mg/dL (0.2-1.3); BLOOD UREA NITROGEN 83 mg/dL (7-21); CARBON DIOXIDE 22 mmol/L (21-33); CHLORIDE 112 mmol/L (98-107); GFR AFRICAN-AMERICAN 38; GLUCOSE,RANDOM 132 mg/dL (70-110); LIPASE 26 U/L (23-300); MAGNESIUM 1.9 mg/dL (1.7-2.2); PHOSPHOROUS 4.4 mg/dL (2.5-4.5); POTASSIUM 3.6 mmol/L (3.6-5.0); SODIUM 143 mmol/L (132-148); TOTAL PROTEIN 5.2 g/dL (5.8-8.3)
[2016-05-02 09:11] LABS: AMYLASE < 30 U/L (35-125)
[2016-05-02] MEDS: Meropenem 1 GM in Sodium Chloride 0.9% 100 ML IVPB SCH ×2 (10:43→22:30)
[2016-05-02] MEDS: Vancomycin 25 MG/ML PO SCH ×4 (10:44→22:30)
[2016-05-02] MEDS: Famotidine 20mg/50ml 50 ML IVPB SCH ×2 (10:50→22:30)
[2016-05-02] MEDS: Potassium Chloride 10 mEq 100 ML IVPB SCH ×2 (10:53→12:00)
--- NOTE | 2016-05-02 10:55 | PN ---
DATE: 05/02/2016 I saw him in the intensive care unit, resting in bed. He is doing fairly well. He is comfortable. He is being seen by the jumpbasting collar baster/oncologist who is trying to help his platelets, and got a transf usion. He is currently on insulin, Librium, Merrem, Pepcid, saliva, IV fluids, vancomycin. He is ta lking well. He is eating some. He is moving his bowels. He wants to get out of the intensive care unit. PHYSICAL EXAMINATION: VITAL SIGNS: He has a 98.6 temperature, 92 pulse, 131/65 blood pressure, 20 respiratory rate, 94% O2 sat on room air. HEENT: Head is atraumatic, normocephalic. GENERAL: He is alert and talking a lot. HEART: Regular rate. LUNGS: Decreased breath sounds. ABDOMEN: Morbidly obese, soft. EXTREMITIES: No edema. LABORATORY DATA: He has a 7.3 white count, 8.8 hemoglobin, 25 hematocrit with 41 platelets. That is the best it has been. He has a 142 sodium, potassium is 3.2. We will replace the potassium. BUN 88 , creatinine 2.3, still coming down slowly. Last sugar was 143, calcium is 4.7. Have to replace the calcium. Total bili is 0.8. AST is 35, ALT is 35, alk phos is 161, total protein is 4.5. ASSESSMENT AND PLAN: He is being seen by infectious disease, the vessel scrapper, renal, interventional radiologist. He has multiple issues, anemia, bladder cancer, pancreatic cancer, renal insufficiency, sepsis. He is basically in trouble, but may be a little bit improved. Will check his labs tomorrow . Will replace his electrolytes and if we can try and get him out of the intensive care unit, we cordell valerio Melquiades Dorsey DO cc: [id number] TT: 05/02/2016 10:54:29 Confirmation # [id number] Dictation # [id number] david
[2016-05-03] MEDS: Sodium Chloride 0.9% 1,000 ML IV SCH ×3 (03:00→11:55)
[2016-05-03 05:52] LABS: MEAN CELL VOLUME 86.6 fL (80.0-105.0); MEAN CORPUSCULAR HGB CONC 33.5 g/dl (31.0-37.0); RED CELL DISTRIBUTION WIDTH 18.5 % (11.5-14.5); WHITE BLOOD COUNT 5.5 10^3/ul (4.5-11.0)
[2016-05-03 06:03] LABS: HEMATOCRIT 22.7 % (42.0-52.0); PLATELET COUNT 16 10^3/uL (120.0-450.0)
[2016-05-03 06:26] LABS: ALB/GLOB RATIO 0.6 (1.1-1.8); POTASSIUM 3.7 mmol/L (3.6-5.0)
[2016-05-03 07:25] LABS: CALCIUM 6.5 mg/dL (8.4-10.5)
[2016-05-03] MEDS: Insulin Lispro (humaLOG) LOW Coverage SC SCH ×4 (08:11→22:28)
--- NOTE | 2016-05-03 09:03 | CP.PCM.PN ---
Subjective - Date & Time of Evaluation Date of Evaluation: 05/03/16 Time of Evaluation: 08:10 - Subjective Subjective: Comfortable in bed, not in distress, afebrile. Objective - Vital Signs/Intake and Output Vital Signs (last 24 hours): Temp Pulse Resp BP Pulse Ox 98.0 F 85 23 114/49 L 94 L 05/03/16 04:00 05/03/16 04:00 05/03/16 04:00 05/03/16 04:00 05/03/16 04:00 Intake and Output: 05/02/16 05/03/16 18:59 06:59 Intake Total 2800 Output Total 2850 Balance -50 - Medications Medications: Current Medications Chlordiazepoxide (Librium) 25 mg PO Q8 PRN; Protocol PRN Reason: Agitation Last Admin: 05/02/16 21:46 Dose: 25 mg Sodium Chloride (Sodium Chloride 0.9%) 1,000 mls @ 150 mls/hr IV .[id number] WIL Last Admin: 05/03/16 03:00 Dose: 150 mls/hr Meropenem 1 gm/ Sodium (Chloride) 100 mls @ 100 mls/hr IVPB Q12 WIL PRN Reason: Protocol Stop: 05/14/16 11:31 Last Admin: 05/02/16 22:30 Dose: 100 mls/hr Famotidine (Pepcid 20mg/50ml Premix) 50 mls @ 100 mls/hr IVPB Q12 WIL Last Admin: 05/02/16 22:30 Dose: 100 mls/hr Insulin Human Lispro (Humalog Low) 0 units SC ACHS WIL PRN Reason: Protocol Last Admin: 05/02/16 22:51 Dose: Not Given Saliva Substitute (Saliva Substitute) 0 ml PO 5XD PRN PRN Reason: DRY MOUTH Vancomycin HCl (Vancocin 25 Mg/Ml (Oral Use)) 125 mg PO QID WIL PRN Reason: Protocol Last Admin: 05/02/16 22:30 Dose: 125 mg - Labs Labs: 05/03/16 05:00 05/02/16 08:10 PT 14.4 Seconds (9.9-11.8) H 04/29/16 02:40 INR 1.33 (0.93-1.08) H 04/29/16 02:40 APTT 30.4 Seconds (23.7-30.8) 05/01/16 19:30 - Constitutional Appears: Non-toxic, No Acute Distress - Head Exam Head Exam: NORMAL INSPECTION - Respiratory Exam Respiratory Exam: Decreased Breath Sounds Additional comments: right anterior chest wall port in place - Cardiovascular Exam Cardiovascular Exam: +S1, +S2 - GI/Abdominal Exam GI & Abdominal Exam: Soft. absent: Tenderness Assessment and Plan - Assessment and Plan (Free Text) Plan: Assessment Severe sepsis with acute renal failure secondary to gram negative bacilli bacteremia probably from urinary tract infection and pyelonephritis, R/O port infection; also with C diff associated diarrhea acute anemia Pancreatic cancer S/P chemotherapy and radiation therapy and surgery HTN DM obesity with BMI 34 Plan continue Meropenem day 4 (but 04/30 cx are still positive and identified as Klebsiella in urine cx but awating identification in blood cx, awaiting 05/01 cx as well) pending identification and sensitivities of the gram negative bacilli in the blood; urine is showing Klebsiella; CT Abdomen and pelvis reviewed; continue PO Vancomycin (day 3) Follow up URology evaluation May consider antibiotic lock therapy for the port if port needs to remain Will continue to follow clinically Overall prognosis is poor
[2016-05-03] MEDS: Meropenem 1 GM in Sodium Chloride 0.9% 100 ML IVPB SCH ×2 (09:06→22:18)
[2016-05-03] MEDS: Vancomycin 25 MG/ML PO SCH ×4 (09:07→22:18)
[2016-05-03] MEDS: Famotidine 20mg/50ml 50 ML IVPB SCH ×2 (10:04→22:18)
--- NOTE | 2016-05-03 11:31 | PN ---
DATE: 05/03/2016 I saw him in the intensive care unit. They are still trying to find a bed on telemetry. He is on Li brium, Merrem IV, famotidine, saliva, IV fluids, and vancomycin. I am going to decrease the IV fluid s. He is alert, talking, a little tired. PHYSICAL EXAMINATION: VITAL SIGNS: 98.2 temp, 83 pulse, 19 respiratory rate, 136/77, blood pressure, 92% O2 sat. HEENT: His head is atraumatic, normocephalic. HEART: Regular rate. LUNGS: Have decreased breath sounds. ABDOMEN: Soft, obese. EXTREMITIES: Trace edema. LABORATORY DATA: He has a 5.5 white count, 7.6 hemoglobin. We might have to transfuse him if it socorro ps. I will discuss that with the downstairs maid, 22.7 hematocrit with 16 platelets. I am going to chan sfuse him. 145 sodium, potassium is 3.7, 68 BUN, creatinine 1.6, getting better, calcium 6.5, better . AST is 35, ALT is 39, alk phos is 293, total protein is 5. I am going to transfuse him 2 units of blood and decrease his IV fluids. Hopefully, get him out of b ed to chair and to physical therapy and get him off the unit. The patient is here with multiple prob lems. He has been in the intensive care unit this whole time. He has got dehydration, hypertension, severe anemia, acute renal failure, pancreatic cancer and urinary tract infection. Melquiades Dorsey DO cc: [id number] TT: 05/03/2016 11:31:18 Confirmation # [id number] Dictation # [id number] tn
[2016-05-04 05:48] LABS: HEMATOCRIT 28.2 % (42.0-52.0); MEAN CELL VOLUME 88.1 fL (80.0-105.0); MEAN CORPUSCULAR HEMOGLOBIN 29.1 pg (25.0-35.0); RED CELL DISTRIBUTION WIDTH 17.5 % (11.5-14.5); WHITE BLOOD COUNT 7.5 10^3/ul (4.5-11.0)
[2016-05-04 06:39] LABS: ALB/GLOB RATIO 0.5 (1.1-1.8); BILIRUBIN,TOTAL 0.8 mg/dL (0.2-1.3); POTASSIUM 4.1 mmol/L (3.6-5.0)
[2016-05-04 06:53] LABS: PLATELET COUNT 22 10^3/uL (120.0-450.0)
[2016-05-04] MEDS: Insulin Lispro (humaLOG) LOW Coverage SC SCH ×4 (08:18→22:36)
[2016-05-04] MEDS: Sodium Chloride 0.9% 1,000 ML IV SCH (08:56)
[2016-05-04] MEDS: Meropenem 1 GM in Sodium Chloride 0.9% 100 ML IVPB SCH ×2 (09:00→21:22)
[2016-05-04] MEDS: Vancomycin 25 MG/ML PO SCH ×4 (09:00→21:22)
--- NOTE | 2016-05-04 09:03 | CP.PCM.PN ---
Subjective - Date & Time of Evaluation Date of Evaluation: 05/04/16 Time of Evaluation: 08:20 - Subjective Subjective: Comfortable in bed, stools are now pasty instead of watery, no fevers, no abdominal pain, eating fairly. Objective - Vital Signs/Intake and Output Vital Signs (last 24 hours): Temp Pulse Resp BP Pulse Ox 97.8 F 86 17 143/58 L 83 L 05/04/16 04:00 05/04/16 04:00 05/04/16 04:00 05/04/16 04:00 05/04/16 04:00 Intake and Output: 05/03/16 05/04/16 18:59 06:59 Intake Total 2806 1965 Output Total 2400 2400 Balance 406 -435 - Medications Medications: Current Medications Chlordiazepoxide (Librium) 25 mg PO Q8 PRN; Protocol PRN Reason: Agitation Last Admin: 05/03/16 22:36 Dose: 25 mg Meropenem 1 gm/ Sodium (Chloride) 100 mls @ 100 mls/hr IVPB Q12 WIL PRN Reason: Protocol Stop: 05/14/16 11:31 Last Admin: 05/03/16 22:18 Dose: 100 mls/hr Famotidine (Pepcid 20mg/50ml Premix) 50 mls @ 100 mls/hr IVPB Q12 WIL Last Admin: 05/03/16 22:18 Dose: 100 mls/hr Sodium Chloride (Sodium Chloride 0.9%) 1,000 mls @ 60 mls/hr IV .[id number] [facility] Last Admin: 05/03/16 11:55 Dose: 60 mls/hr Insulin Human Lispro (Humalog Low) 0 units SC ACHS WIL PRN Reason: Protocol Last Admin: 05/03/16 22:28 Dose: Not Given Saliva Substitute (Saliva Substitute) 0 ml PO 5XD PRN PRN Reason: DRY MOUTH Vancomycin HCl (Vancocin 25 Mg/Ml (Oral Use)) 125 mg PO QID WIL PRN Reason: Protocol Last Admin: 05/03/16 22:18 Dose: 125 mg - Labs Labs: 05/03/16 05:00 05/03/16 05:00 PT 14.4 Seconds (9.9-11.8) H 04/29/16 02:40 INR 1.33 (0.93-1.08) H 04/29/16 02:40 APTT 30.4 Seconds (23.7-30.8) 05/01/16 19:30 - Constitutional Appears: Non-toxic, No Acute Distress - Head Exam Head Exam: NORMAL INSPECTION - ENT Exam ENT Exam: Mucous Membranes Moist - Neck Exam Neck Exam: absent: Lymphadenopathy, Meningismus - Respiratory Exam Respiratory Exam: Decreased Breath Sounds Additional comments: right anterior chest wall port site intact Assessment and Plan - Assessment and Plan (Free Text) Plan: Assessment Severe sepsis with acute renal failure secondary to Klebsiella pneumoniae bacteremia probably from severe cystitis and pyelonephritis, R/O port infection ; also with C diff associated diarrhea, slowly improving acute anemia Pancreatic cancer S/P chemotherapy and radiation therapy and surgery HTN DM obesity with BMI 34 Plan continue Meropenem (but 05/01 cx are still positive) awaiting repeat blood cx; CT Abdomen and pelvis reviewed; continue PO Vancomycin (day 4); will repeat 2D echo in the next 3-5 days Follow up Urology evaluation May consider antibiotic lock therapy for the port if port needs to remain, but if the bacteremia continues to persist, may consider removal of the port Will continue to follow clinically Overall prognosis is poor
--- NOTE | 2016-05-04 09:15 | PN ---
DATE: 05/04/2016 I saw the patient in the intensive care unit. He is still there. He is about the same. He is still talking. He is comfortable. He did get out of bed to a chair and he is eating a little bit, not mu ch pain. He is currently on Librium, Merrem IV, IV Pepcid, saliva, IV fluids, vancomycin IV and insulin covera ge. PHYSICAL EXAMINATION: VITAL SIGNS: He has a 98.1 temp, 84 pulse, 136/67 blood pressure, 99% O2 sat on room air. HEENT: His head is atraumatic, normocephalic. Mouth is moist. HEART: Regular rate. LUNGS: Decreased breath sounds but clear. ABDOMEN: Soft, obese. EXTREMITIES: No edema. He has a 7.5 white count, 9.3 hemoglobin after 2 units of packed red blood cells, which is better, he matocrit is 28.2 and platelets are only 22 today. He has a 145 sodium, potassium 4.1, BUN 58, creati nine 1.5, which is still improving. He is still doing better with the kidney function. Last sugar w as 101, calcium 7, total bili is 0.8, AST is 35, ALT is 43, alkaline phosphatase is 347. Urine showe d large blood a few days ago. He had a positive occult blood. He is being seen by renal, oncology, urology, infectious disease. He has multiple issues, dehydratio n, hypotension, acute renal failure, severe anemia, urinary tract infection, pancreatic cancer and no n-ST elevation myocardial infarction and we are going to do the best we can to get him tuned up. He might need to go to rehab before he goes home, and we will get him out of the unit today, get physica l therapy involved, check his labs tomorrow. I will check another stool for occult blood. Melquiades Dorsey DO cc: [phone] TT: 05/04/2016 09:14:34 Confirmation # [id number] Dictation # [id number] en
--- NOTE | 2016-05-04 13:00 | PN ---
DATE: 05/04/2016 The patient is on a med/surg floor. He is without chest pain, without shortness of breath. PHYSICAL EXAMINATION: VITAL SIGNS: Blood pressure is 136/67, the heart rate is in the 80s. NECK: Negative JVD. LUNGS: Without rales. HEART: Reveals S1, S2. EXTREMITIES: Without edema. LABORATORIES: Hemoglobin is 9.3, platelet count is 22. Chemistries: BUN and creatinine are 58 and 1.5. IMPRESSION: 1. Anemia, which is stable. 2. Admitting iya-YR-kyiyizv elevation myocardial infarction for which he has been treated medically in which the patient is without chest pain. 3. Prerenal azotemia. 4. Pancreatic cancer. 5. Chronic obstructive pulmonary disease. 6. Diabetes mellitus. 7. Hypercholesterolemia. Given these findings, the patient's hemoglobin remains stable. The borderline elevated troponins are likely due to his renal insufficiency on admission. Horacio Rogel MD cc: [phone] TT: 05/04/2016 12:59:30 Confirmation # [id number] Dictation # [id number] mn
--- NOTE | 2016-05-04 16:26 | PN ---
DATE: 05/04/2016 SUBJECTIVE: The patient was seen on a general medical floor. He is resting comfortably. He has now been transferred out of the intensive care unit. He is not in any pain or distress. He does remain in isolation; however. He is lethargic, but arousable. OBJECTIVE: VITAL SIGNS: Blood pressure is 136/67, heart rate is 84, oral temperature is 98.1, respiratory rate is 18, oxygen saturation 99%. I's and O's in the last 24 -hour period are 5400/6200. The remainder of the exam was as follows: HEENT: The patient was normocephalic and atraumatic. There is no sinus tenderness. Conjunctivae were pale, but they were anicteric. NECK: There was no jugular venous distension. CHEST: Lungs smith on my exam were grossly clear to auscultation. CARDIAC: Regular rate and rhythm without any rubs or gallops. There were no heaves and the PMI was not displaced. ABDOMEN: Soft with normoactive bowel sounds in all 4 quadrants. He was mildly distended, but was nontender. There is no rebound, guarding or rigidity. He did have a vertical scar in the epigastric region corresponding to prior attempted Whipple procedure. EXTREMITIES: Had only trace dependent edema. NEUROLOGIC: He was lethargic, but arousable. VASCULAR: Had no bruits. SKIN: Did have chronic stasis changes of both lower extremities. LABORATORY STUDIES: As follows: White count is 7.5, H and H is 9.3/28.2 with a platelet count of 22,000. Sodium is 145, potassium is 4.1, chloride is 115, bicarbonate 23, BUN/creatinine is 58/1.5 with a glucose of 148. Calcium is low at 7, but after correcting for the albumin of 1.8 it is 8.6, which is corrected within normal limits. Blood cultures from 05/01 revealed Klebseilla pneumoniae bacteremia and he has not had positive blood cultures since then. There is no new imaging to report. IMPRESSION AND PLAN: The patient is a 65-year-old gentleman with a known history of pancreatic cancer for which a Whipple had been attempted in the past , but was unable to be performed and has been receiving chemotherapy with gemcitabine as well as Abraxane most recently on 04/13/2016, also with a known history of bladder cancer, type 2 diabetes mellitus that is noninsulin dependent , hypertension, originally admitted with weakness following several days of diarrhea and dark stool. He is noted to have acute kidney injury with rhabdomyolysis, lactic acidosis, hypocalcemia as well as anemia. Since being hospitalized he is also noted to have Klebsiella pneumoniae bacteremia also. 1. The patient's blood pressure is now increased back to baseline and he is no longer n.p.o. Despite that, the fact that his sodium is high normal is indicative of inadequate oral intake. Additionally, has BUN versus creatinine ratio is elevated at almost 40:1 and thus the patient is somewhat prerenal. Since the sodium is high normal, I will change his intravenous fluids from normal saline at 60 mL per hour to 1/2 normal saline at 75 mL per hour for now. 2. For klebsiella pneumoniae bacteremia, the patient remains on meropenem. Repeat blood cultures are pending. He is also on oral vancomycin for Clostridium difficile associated diarrhea and plans are to repeat echocardiogram. 3. Infectious disease followup is appreciated in that if the patient's bacteremia is found to be persistent, he would require removal of the port. If this is not possible; however, then he would require antibiotic lock therapy for the port. 4. CT scan of his abdomen and pelvis had revealed severe cystitis as well as severe mural thickening and pneumatosis in the wall of the urinary bladder with adjacent extraluminal air collection worrisome for perforation of his bladder. Urology followup is pending. 5. The patient's hemoglobin is stable following his transfusions of packed red blood cells. He has received 6 thus far as well as 1 unit of platelets. We will continue to monitor his H and H closely. 6. The patient's most recent CPK decreased nicely to 335 and therefore we do not need to follow this up. 7. Although the patient's calcium is low, after correcting for albumin it is within normal limits and thus also does not need to be corrected. 8. I will repeat urine sodium and urine creatinine on this patient to determine whether or not he continues to remain volume responsive,. 9. For gastrointestinal prophylaxis, the patient is currently on famotidine. He is thrombocytopenic and so for DVT prophylaxis, SCDs would suffice. Review of systems, past medical history, social history and family history were all reviewed and there were no new changes. MARIO Tsai MD cc: [phone] TT: 05/04/2016 16:25:07 Confirmation # [id number] Dictation # [id number] jn MTDD
[2016-05-04] MEDS: Famotidine 20mg/50ml 50 ML IVPB SCH (22:30)
[2016-05-05] MEDS: Sodium Chloride 0.45% 1,000 ML IV SCH ×2 (06:15→21:58)
[2016-05-05 07:30] LABS: HEMATOCRIT 28.9 % (42.0-52.0); MEAN CELL VOLUME 86.3 fL (80.0-105.0); MEAN CORPUSCULAR HEMOGLOBIN 29.3 pg (25.0-35.0); MEAN CORPUSCULAR HGB CONC 33.9 g/dl (31.0-37.0); PLATELET COUNT 37 10^3/uL (120.0-450.0); RED CELL DISTRIBUTION WIDTH 17.6 % (11.5-14.5); WHITE BLOOD COUNT 10.9 10^3/ul (4.5-11.0)
[2016-05-05 07:49] LABS: ALB/GLOB RATIO 0.5 (1.1-1.8); ALKALINE PHOSPHATASE 477 U/L (38-133); ALT/SGPT 55 U/L (7-56); AST/SGOT 48 U/L (15-59); BILIRUBIN,TOTAL 1.2 mg/dL (0.2-1.3); BLOOD UREA NITROGEN 47 mg/dL (7-21); CALCIUM 7.3 mg/dL (8.4-10.5); CARBON DIOXIDE 26 mmol/L (21-33); CHLORIDE 112 mmol/L (98-107); GFR AFRICAN-AMERICAN > 60; GLUCOSE,RANDOM 123 mg/dL (70-110); POTASSIUM 4.1 mmol/L (3.6-5.0); SODIUM 144 mmol/L (132-148); TOTAL PROTEIN 5.7 g/dL (5.8-8.3)
[2016-05-05] MEDS: Insulin Lispro (humaLOG) LOW Coverage SC SCH ×4 (10:24→23:36)
[2016-05-05] MEDS: Famotidine 20mg/50ml 50 ML IVPB SCH ×2 (10:25→21:58)
[2016-05-05] MEDS: Vancomycin 25 MG/ML PO SCH ×4 (10:26→21:59)
[2016-05-05] MEDS: Meropenem 1 GM in Sodium Chloride 0.9% 100 ML IVPB SCH ×2 (10:27→21:58)
[2016-05-05] MEDS ORDERED: Morphine 2 mg/ml ISec IVP PRN (12:57)
--- NOTE | 2016-05-05 13:45 | PN ---
DATE: 05/05/2016 The patient is a 65-year-old male status post discharge from the ICU, currently in bed. He is arousa ble. No complaints of chest pain, no shortness of breath, no nausea, no vomiting. PHYSICAL EXAMINATION: VITAL SIGNS: Blood pressure is 145/77, pulse rate of 109, temperature is 98.3, O2 saturation is 98. HEENT: Normocephalic, atraumatic. Pale conjunctivae, nonicteric sclerae. CARDIOVASCULAR: Regular rate and rhythm. S1, S2 appreciated. LUNGS: Bilateral air entry is positive, but decreased at the base. ABDOMEN: Nondistended, nontender. Positive bowel sounds. EXTREMITIES: Peripheral pulses +2 with no pitting edema. LABORATORY DATA: WBCs of 10.9, hemoglobin 9.8, hematocrit 28.9, platelets are still low at 37. Chem istry within normal limits except for BUN of 47, creatinine is down to 1.4. AST, ALT within normal l imits. ASSESSMENT: 1. Dehydration. 2. Acute renal insufficiency, which has resolved. 3. Hypotension. 4. Pancytopenia. 5. Urinary tract infection. 6. Pancreatic cancer in the past. PLAN: At this time, we will continue his current treatment that he has. Did note that Dr. Rogel,, Dr Hemant Atkinson as well as ID and renal have been seeing this patient. The patient currently is on IV fluids as well as IV antibiotics. We will follow this patient very closely. Colton Smith MD cc: [id number] TT: 05/05/2016 13:44:57 Confirmation # [id number] Dictation # [id number] tn
--- NOTE | 2016-05-05 15:21 | CP.PCM.PN ---
Subjective - Date & Time of Evaluation Date of Evaluation: 05/05/16 Time of Evaluation: 10:20 - Subjective Subjective: Comfortable in bed, not in distress, afebrile. Objective - Vital Signs/Intake and Output Vital Signs (last 24 hours): Temp Pulse Resp BP Pulse Ox 98.3 F 109 H 18 145/77 98 05/05/16 06:00 05/05/16 06:00 05/05/16 06:00 05/05/16 06:00 05/05/16 06:00 Intake and Output: 05/05/16 05/05/16 06:59 18:59 Intake Total 240 Output Total 1000 Balance -760 - Medications Medications: Current Medications Chlordiazepoxide (Librium) 25 mg PO Q8 PRN; Protocol PRN Reason: Agitation Last Admin: 05/03/16 22:36 Dose: 25 mg Meropenem 1 gm/ Sodium (Chloride) 100 mls @ 100 mls/hr IVPB Q12 WIL PRN Reason: Protocol Stop: 05/14/16 11:31 Last Admin: 05/04/16 21:22 Dose: 100 mls/hr Famotidine (Pepcid 20mg/50ml Premix) 50 mls @ 100 mls/hr IVPB Q12 WIL Last Admin: 05/04/16 22:30 Dose: 100 mls/hr Sodium Chloride (Sodium Chloride 0.45%) 1,000 mls @ 75 mls/hr IV .[id number] [facility] Last Admin: 05/05/16 06:15 Dose: 75 mls/hr Insulin Human Lispro (Humalog Low) 0 units SC ACHS WIL PRN Reason: Protocol Last Admin: 05/04/16 22:36 Dose: Not Given Saliva Substitute (Saliva Substitute) 0 ml PO 5XD PRN PRN Reason: DRY MOUTH Vancomycin HCl (Vancocin 25 Mg/Ml (Oral Use)) 125 mg PO QID WIL PRN Reason: Protocol Last Admin: 05/04/16 21:22 Dose: 125 mg - Labs Labs: 05/05/16 07:00 05/05/16 06:30 PT 14.4 Seconds (9.9-11.8) H 04/29/16 02:40 INR 1.33 (0.93-1.08) H 04/29/16 02:40 APTT 30.4 Seconds (23.7-30.8) 05/01/16 19:30 - Constitutional Appears: Non-toxic, No Acute Distress - Head Exam Head Exam: NORMAL INSPECTION - ENT Exam ENT Exam: Mucous Membranes Moist - Neck Exam Neck Exam: absent: Lymphadenopathy, Meningismus - Respiratory Exam Respiratory Exam: Decreased Breath Sounds Additional comments: right anterior chest wall port in place - Cardiovascular Exam Cardiovascular Exam: +S1, +S2 - GI/Abdominal Exam GI & Abdominal Exam: Soft. absent: Tenderness Assessment and Plan - Assessment and Plan (Free Text) Plan: Assessment Severe sepsis with acute renal failure secondary to Klebsiella pneumoniae bacteremia probably from severe cystitis and pyelonephritis, R/O port infection ; also with C diff associated diarrhea, slowly improving acute anemia Pancreatic cancer S/P chemotherapy and radiation therapy and surgery HTN DM obesity with BMI 34 Plan continue Meropenem (but 05/01 cx are still positive but the 3/ cx are negative x 1 day); CT Abdomen and pelvis reviewed; continue PO Vancomycin (day 4); will repeat 2D echo in the next 3-5 days Follow up Urology evaluation May consider antibiotic lock therapy for the port if port needs to remain, but if the bacteremia continues to persist, may consider removal of the port Will continue to follow clinically Overall prognosis is poor
[2016-05-06 04:08] LABS: URINE BILIRUBIN NEGATIVE (NEGATIVE); URINE BLOOD 3+ (NEGATIVE); URINE GLUCOSE (UA) NEGATIVE (NEGATIVE); URINE KETONE NEGATIVE (NEGATIVE); URINE LEUKOCYTE ESTERASE 2+ Leu/uL (NEGATIVE); URINE PROTEIN 1+ mg/dL (<30 mg/dL); URINE UROBILINOGEN 0.2 E.U./dL (<1 E.U./dL)
[2016-05-06 04:28] LABS: URINE APPEARANCE TURBID (CLEAR); URINE COLOR YELLOW (YELLOW)
[2016-05-06] MEDS ORDERED: Oxycodone/Acetaminophen 5/325 mg Tab PO PRN (04:28)
[2016-05-06 04:45] LABS: URINE BACTERIA MOD (NEG); URINE EPITHELIAL CELLS 0 - 2 /hpf (0-5); URINE WBC TNTC /hpf (0-6)
--- NOTE | 2016-05-06 04:56 | CP.PCM.PN ---
Subjective - Date & Time of Evaluation Date of Evaluation: 05/06/16 Time of Evaluation: 04:52 - Subjective Subjective: S:Patient was seen at bedside because he requested percocet instread of morphine . States he was getting percocet after he had surgery and it was helping him. Does not give any specific reason why he does not want morphine. Medical record was reviewed. O: Last Vital Signs 3 Temp 98.5 F 05/05/16 18:26 Pulse 115 H 05/05/16 18:26 Resp 19 05/05/16 18:26 BP 119/73 05/05/16 18:26 Pulse Ox 96 05/05/16 18:26 Awake, alert ,not in distress. LUNGS:Normal breathing pattern. A:Pain. Pancreatic cancer. Bladder cancer. P:Percocet as ordered. Objective - Vital Signs/Intake and Output Vital Signs (last 24 hours): Temp Pulse Resp BP Pulse Ox 98.5 F 115 H 19 119/73 96 05/05/16 18:26 05/05/16 18:26 05/05/16 18:26 05/05/16 18:26 05/05/16 18:26 Intake and Output: 05/05/16 05/06/16 18:59 06:59 Intake Total 600 300 Output Total 1000 1000 Balance -400 -700 - Medications Medications: Current Medications Chlordiazepoxide (Librium) 25 mg PO Q8 PRN; Protocol PRN Reason: Agitation Last Admin: 05/05/16 21:57 Dose: 25 mg Meropenem 1 gm/ Sodium (Chloride) 100 mls @ 100 mls/hr IVPB Q12 WIL PRN Reason: Protocol Stop: 05/14/16 11:31 Last Admin: 05/05/16 21:58 Dose: 100 mls/hr Famotidine (Pepcid 20mg/50ml Premix) 50 mls @ 100 mls/hr IVPB Q12 [facility] Last Admin: 05/05/16 21:58 Dose: 100 mls/hr Sodium Chloride (Sodium Chloride 0.45%) 1,000 mls @ 75 mls/hr IV .[id number] WIL Last Admin: 05/05/16 21:58 Dose: 75 mls/hr Insulin Human Lispro (Humalog Low) 0 units SC ACHS WIL PRN Reason: Protocol Last Admin: 05/05/16 23:36 Dose: Not Given Morphine Sulfate (Morphine) 1 mg IVP Q4H PRN PRN Reason: Pain, moderate (4-7) Oxycodone/Acetaminophen (Percocet 5/325 Mg Tab) 1 tab PO Q4H PRN PRN Reason: Pain, moderate (4-7) Stop: 05/09/16 04:29 Saliva Substitute (Saliva Substitute) 0 ml PO 5XD PRN PRN Reason: DRY MOUTH Vancomycin HCl (Vancocin 25 Mg/Ml (Oral Use)) 125 mg PO QID WIL PRN Reason: Protocol Last Admin: 05/05/16 21:59 Dose: 125 mg - Labs Labs: 05/05/16 07:00 05/05/16 06:30 PT 14.4 Seconds (9.9-11.8) H 04/29/16 02:40 INR 1.33 (0.93-1.08) H 04/29/16 02:40 APTT 30.4 Seconds (23.7-30.8) 05/01/16 19:30
[2016-05-06 06:29] LABS: HEMATOCRIT 26.4 % (42.0-52.0); PLATELET COUNT 52 10^3/uL (120.0-450.0); RED CELL DISTRIBUTION WIDTH 18.1 % (11.5-14.5); WHITE BLOOD COUNT 11.3 10^3/ul (4.5-11.0)
[2016-05-06 06:51] LABS: ADD MANUAL DIFF? YES
[2016-05-06 06:56] LABS: ALB/GLOB RATIO 0.5 (1.1-1.8); BILIRUBIN,TOTAL 0.8 mg/dL (0.2-1.3); CALCIUM 7.5 mg/dL (8.4-10.5); POTASSIUM 4.3 mmol/L (3.6-5.0); TOTAL PROTEIN 5.7 g/dL (5.8-8.3)
[2016-05-06] MEDS: Insulin Lispro (humaLOG) LOW Coverage SC SCH ×4 (07:42→23:10)
[2016-05-06 09:25] LABS: BAND 4 % (0-2); NEUTROPHIL 85 % (50.0-70.0); PLATELET ESTIMATE LOW (NORMAL)
[2016-05-06 09:26] LABS: ANISOCYTOSIS 1+; HYPOCHROMIA 2+; LARGE PLATELETS PRESENT; OVALOCYTES SLIGHT; POIKILOCYTOSIS SLIGHT; POLYCHROMASIA SLIGHT; TOXIC GRANULATION 1+
[2016-05-06] MEDS: Meropenem 1 GM in Sodium Chloride 0.9% 100 ML IVPB SCH ×2 (10:10→22:20)
[2016-05-06] MEDS: Vancomycin 25 MG/ML PO SCH ×4 (10:10→22:20)
--- NOTE | 2016-05-06 11:20 | CP.PCM.PN ---
Subjective - Date & Time of Evaluation Date of Evaluation: 05/06/16 Time of Evaluation: 10:05 - Subjective Subjective: Comfortable, afebrile, not in distress. Objective - Vital Signs/Intake and Output Vital Signs (last 24 hours): Temp Pulse Resp BP Pulse Ox 99.1 F 98 H 20 122/66 96 05/06/16 09:13 05/06/16 09:13 05/06/16 09:13 05/06/16 09:13 05/06/16 09:13 Intake and Output: 05/06/16 05/06/16 06:59 18:59 Intake Total 300 Output Total 1000 Balance -700 - Medications Medications: Current Medications Chlordiazepoxide (Librium) 25 mg PO Q8 PRN; Protocol PRN Reason: Agitation Last Admin: 05/06/16 05:15 Dose: 25 mg Meropenem 1 gm/ Sodium (Chloride) 100 mls @ 100 mls/hr IVPB Q12 WIL PRN Reason: Protocol Stop: 05/14/16 11:31 Last Admin: 05/05/16 21:58 Dose: 100 mls/hr Famotidine (Pepcid 20mg/50ml Premix) 50 mls @ 100 mls/hr IVPB Q12 [facility] Last Admin: 05/05/16 21:58 Dose: 100 mls/hr Sodium Chloride (Sodium Chloride 0.45%) 1,000 mls @ 75 mls/hr IV .[id number] [facility] Last Admin: 05/05/16 21:58 Dose: 75 mls/hr Insulin Human Lispro (Humalog Low) 0 units SC ACHS [facility] PRN Reason: Protocol Last Admin: 05/06/16 07:42 Dose: Not Given Morphine Sulfate (Morphine) 1 mg IVP Q4H PRN PRN Reason: Pain, moderate (4-7) Oxycodone/Acetaminophen (Percocet 5/325 Mg Tab) 1 tab PO Q4H PRN PRN Reason: Pain, moderate (4-7) Stop: 05/09/16 04:29 Last Admin: 05/06/16 05:15 Dose: 1 tab Saliva Substitute (Saliva Substitute) 0 ml PO 5XD PRN PRN Reason: DRY MOUTH Vancomycin HCl (Vancocin 25 Mg/Ml (Oral Use)) 125 mg PO QID WIL PRN Reason: Protocol Last Admin: 05/05/16 21:59 Dose: 125 mg - Labs Labs: 05/06/16 06:00 05/06/16 06:00 PT 14.4 Seconds (9.9-11.8) H 04/29/16 02:40 INR 1.33 (0.93-1.08) H 04/29/16 02:40 APTT 30.4 Seconds (23.7-30.8) 05/01/16 19:30 - Constitutional Appears: Non-toxic, No Acute Distress - Head Exam Head Exam: NORMAL INSPECTION - ENT Exam ENT Exam: Mucous Membranes Moist - Neck Exam Neck Exam: absent: Lymphadenopathy, Meningismus - Respiratory Exam Respiratory Exam: Decreased Breath Sounds - Cardiovascular Exam Cardiovascular Exam: +S1, +S2 - GI/Abdominal Exam GI & Abdominal Exam: Soft. absent: Tenderness Assessment and Plan - Assessment and Plan (Free Text) Plan: Assessment Severe sepsis with acute renal failure secondary to Klebsiella pneumoniae bacteremia probably from severe cystitis and pyelonephritis, R/O port infection ; also with C diff associated diarrhea, slowly improving acute anemia Pancreatic cancer S/P chemotherapy and radiation therapy and surgery HTN DM obesity with BMI 34 Plan continue Meropenem (but 05/01 cx are still positive but the 3 cx are negative x 1 day); CT Abdomen and pelvis reviewed; continue PO Vancomycin (day 5); will repeat 2D echo in the next 2-4 days Follow up Urology evaluation May consider antibiotic lock therapy for the port if port needs to remain, but if the bacteremia continues to persist, may consider removal of the port Will continue to follow clinically Overall prognosis is poor
[2016-05-06] MEDS: Famotidine 20mg/50ml 50 ML IVPB SCH ×2 (11:46→22:19)
--- NOTE | 2016-05-06 15:23 | PN ---
DATE: 05/06/2016 The patient is a 65-year-old male, was seen and examined at bedside. No current complaints. No ches t pain, no shortness of breath. Currently, he is a little bit lethargic. PHYSICAL EXAMINATION: VITAL SIGNS: Blood pressure is 122/60, pulse rate of 98, temperature is 99.1, O2 saturation is 96%. HEENT: Normocephalic, atraumatic. Pale conjunctivae, nonicteric sclerae. CARDIOVASCULAR: Regular rate and rhythm, S1, S2 appreciated. LUNGS: Bilateral air entry is positive, but decreased at the base. ABDOMEN: Nondistended, nontender. Positive bowel sounds. EXTREMITIES: Peripheral pulses +2 with no pitting edema. LABORATORIES: WBCs have down-trended now to 11.3, hemoglobin of 8.7, hematocrit of 28.4, platelets o f 52. Chemistry within normal limits except for creatinine of 1.9 and he does have positive blood cu ltures showing gram-positive cocci in the central line. ASSESSMENT: 1. Bacteremia. 2. Resolved sepsis. 3. Dehydration. 4. Acute renal insufficiency. 5. Hypotension. 6. Pancytopenia. 7. Urinary infection. 8. Pancreatic cancer in the past. PLAN: At this time, we will continue IV antibiotics that the patient is receiving as well as IV flui ds. We will check with ID if they do want to have a consultation done as far as a 2D echo done due t o the bacteremia and we will follow this patient very closely. Colton Smith MD cc: [id number] TT: 05/06/2016 15:23:17 Confirmation # [id number] Dictation # [id number] en
[2016-05-06] MEDS: Sodium Chloride 0.45% 1,000 ML IV SCH (19:07)
[2016-05-06] MEDS: Albuterol-Ipratrop 3 mg / 0.5 (3 ml) UD IH PRN (20:03)
[2016-05-06] MEDS ORDERED: Albuterol-Ipratrop 3 mg / 0.5 (3 ml) UD IH STA (23:22)
--- NOTE | 2016-05-06 23:36 | CP.PCM.PN ---
Subjective - Date & Time of Evaluation Date of Evaluation: 05/06/16 Time of Evaluation: 23:46 - Subjective Subjective: Patient was seen at bedside because he was hypoxic, pulse ox was ranging from 80 % to 90% on 2 L/Min, patient was turning grayish on and off. Patient has audible wheezing in upper respiratory tract heard from distance. Medical record was reviewed. When I Came Vitals were:Temp: 98.1*F, BP 123/78,HR 115/min, RR 24/Min, Pulse ox 95% on 2L/min. This 65 year old white male was admitted with diarrhoea, weakness, dehydration , sepsis, anemia. Has PMH of bladder cancer, pancreatic cancer,HTN,DM, alcohol abuse, CVA. Objective - Vital Signs/Intake and Output Vital Signs (last 24 hours): Temp Pulse Resp BP Pulse Ox 97.3 F L 120 H 20 152/91 H 98 05/06/16 16:54 05/06/16 16:54 05/06/16 16:54 05/06/16 16:54 05/06/16 16:54 Intake and Output: 05/06/16 05/07/16 18:59 06:59 Intake Total 240 Output Total 800 Balance -560 - Medications Medications: Current Medications Albuterol/Ipratropium (Duoneb 3 Mg/0.5 Mg (3 Ml) Ud) 3 ml IH [id number] PRN PRN Reason: Cough and congestion Last Admin: 05/06/16 20:03 Dose: 3 ml Chlordiazepoxide (Librium) 25 mg PO Q8 PRN; Protocol PRN Reason: Agitation Last Admin: 05/06/16 05:15 Dose: 25 mg Meropenem 1 gm/ Sodium (Chloride) 100 mls @ 100 mls/hr IVPB Q12 WIL PRN Reason: Protocol Stop: 05/14/16 11:31 Last Admin: 05/06/16 22:20 Dose: 100 mls/hr Famotidine (Pepcid 20mg/50ml Premix) 50 mls @ 100 mls/hr IVPB Q12 WIL Last Admin: 05/06/16 22:19 Dose: 100 mls/hr Sodium Chloride (Sodium Chloride 0.45%) 1,000 mls @ 75 mls/hr IV .[id number] WIL Last Admin: 05/06/16 19:07 Dose: 75 mls/hr Insulin Human Lispro (Humalog Low) 0 units SC ACHS WIL PRN Reason: Protocol Last Admin: 05/06/16 23:10 Dose: Not Given Morphine Sulfate (Morphine) 1 mg IVP Q4H PRN PRN Reason: Pain, moderate (4-7) Oxycodone/Acetaminophen (Percocet 5/325 Mg Tab) 1 tab PO Q4H PRN PRN Reason: Pain, moderate (4-7) Stop: 05/09/16 04:29 Last Admin: 05/06/16 05:15 Dose: 1 tab Saliva Substitute (Saliva Substitute) 0 ml PO 5XD PRN PRN Reason: DRY MOUTH Vancomycin HCl (Vancocin 25 Mg/Ml (Oral Use)) 125 mg PO QID WIL PRN Reason: Protocol Last Admin: 05/06/16 22:20 Dose: 125 mg - Labs Labs: 05/06/16 06:00 05/06/16 06:00 PT 14.4 Seconds (9.9-11.8) H 04/29/16 02:40 INR 1.33 (0.93-1.08) H 04/29/16 02:40 APTT 30.4 Seconds (23.7-30.8) 05/01/16 19:30 - Constitutional Appears: Other (Mild respiratory distress.) - Head Exam Head Exam: ATRAUMATIC, NORMAL INSPECTION, NORMOCEPHALIC - Eye Exam Eye Exam: Normal appearance - ENT Exam ENT Exam: Mucous Membranes Moist, Normal External Ear Exam - Neck Exam Neck Exam: Normal Inspection - Respiratory Exam Respiratory Exam: Rales (++ basal ), Wheezes (Bilateral.) - Cardiovascular Exam Cardiovascular Exam: Tachycardia, REGULAR RHYTHM, JVD (1+), +S1 (Normal.), +S2 ( Normal.) - GI/Abdominal Exam GI & Abdominal Exam: absent: Distended - Rectal Exam Rectal Exam: Deferred - Extremities Exam Extremities Exam: Normal Inspection, Pedal Edema (++) - Back Exam Back Exam: NORMAL INSPECTION - Neurological Exam Neurological Exam: Alert, Oriented x3 - Psychiatric Exam Psychiatric exam: Normal Affect, Normal Mood - Skin Skin Exam: Normal Color Assessment and Plan - Assessment and Plan (Free Text) Assessment: A/P: Hypoxia. Sinus tachycardia. Dyspnea. Sepsis. CHF? R/O ACS. R/O bleed. PNA. Bladder cancer. Pancreatic cancer. Anemia. Renal insufficiency Thrombocytopenia. CBC,CMP,MAG,PHOS,troponin. Remote telemetry. CXR,EKG. Lasix 100 mg IV stat. Solumedrol 60 mg IV x 1. Spoke to . Will get pulmonary consultation with . CXR does not show acute pulmonary edema. EKG-Sinus tachycardia , no acute ST T changes
[2016-05-07 00:08] LABS: HEMATOCRIT 29.2 % (42.0-52.0); MEAN CORPUSCULAR HEMOGLOBIN 29.3 pg (25.0-35.0); MEAN CORPUSCULAR HGB CONC 32.9 g/dl (31.0-37.0); MEAN PLATELET VOLUME 12.6 fl (7.0-11.0); PLATELET COUNT 87 10^3/uL (120.0-450.0); RED CELL DISTRIBUTION WIDTH 18.1 % (11.5-14.5); WHITE BLOOD COUNT 20.2 10^3/ul (4.5-11.0)
[2016-05-07 00:11] LABS: ADD MANUAL DIFF? YES
[2016-05-07 00:18] LABS: ALB/GLOB RATIO 0.5 (1.1-1.8); BILIRUBIN,TOTAL 0.9 mg/dL (0.2-1.3); CALCIUM 8.1 mg/dL (8.4-10.5); MAGNESIUM 1.7 mg/dL (1.7-2.2); TOTAL PROTEIN 6.5 g/dL (5.8-8.3)
[2016-05-07 00:28] LABS: TROPONIN I 0.03 ng/mL
[2016-05-07 00:42] LABS: POTASSIUM 5.4 mmol/L (3.6-5.0)
[2016-05-07 01:15] LABS: ANISOCYTOSIS 1+; GIANT PLATELETS PRESENT
[2016-05-07] MEDS ORDERED: Sod Polystyrene Sulf 15 gm/60 ml Oral Susp PO STA ×2 (01:18→06:39)
[2016-05-07 01:49] LABS: NEUTROPHIL 90 % (50.0-70.0)
[2016-05-07] MEDS: Albuterol-Ipratrop 3 mg / 0.5 (3 ml) UD IH PRN ×3 (07:47→21:45)
--- NOTE | 2016-05-07 08:20 | PN ---
DATE: 05/07/2016 I saw him this morning. He was very short of breath. There were 3 nurses in room. He is on oxygen and he is on a breathing treatment. He was given Lasix. He was not putting out much urine. I order ed stat labs, stat chest x-ray. We can consult with Dr. Rogel and Dr. Lino (cardiology and pulmono logy). He tells me he feels comfortable. He is satting at 99% at this time, but if he moves his O2 sat drops. I ordered a D-dimer, labs, troponin and chest x-ray. He was given Lasix IV. MEDICATIONS: He is currently on albuterol, insulin, Lasix, Librium, Merrem IV, morphine, Pepcid, Per cocet, methylprednisone 60 IV (he had 1 dose), vancomycin and Kayexalate. PHYSICAL EXAMINATION: VITAL SIGNS: 98.1 temp; he was tachycardic at 125 and it is down to 113 units - that is probably fro m the breathing treatment; 20 respiratory rate, 95% O2 sat on nasal cannula. HEENT: Head is atraumatic, normocephalic. GENERAL: He is having a tough time talking and breathing at the same time. HEART: Regular rate. LUNGS: Have decreased breath sounds bilaterally but no rales, rhonchi or wheezes, just poor inspirat ion. ABDOMEN: Morbidly obese. EXTREMITIES: +1/4 pitting edema. I asked for re-eval from cardio and pulmonary. Ordered stat labs. IMPRESSION: He has multiple issues from pancreatic cancer to renal insufficiency to sepsis. He is being seen by multiple doctors: Infectious disease, renal. I reconsulted pulmonary and cardio . Will see how he does today. The patient is in a little bit of respiratory distress. Melquiades Dorsey DO cc: [id number] TT: 05/07/2016 08:19:48 Confirmation # [id number] Dictation # [id number] mn
[2016-05-07 08:38] LABS: HEMATOCRIT 27.5 % (42.0-52.0); MEAN CELL VOLUME 88.4 fL (80.0-105.0); MEAN CORPUSCULAR HEMOGLOBIN 28.9 pg (25.0-35.0); MEAN CORPUSCULAR HGB CONC 32.7 g/dl (31.0-37.0); MEAN PLATELET VOLUME 12.4 fl (7.0-11.0); RED CELL DISTRIBUTION WIDTH 18.1 % (11.5-14.5); WHITE BLOOD COUNT 16.1 10^3/ul (4.5-11.0)
--- NOTE | 2016-05-07 08:41 | RAD ---
HISTORY: hypoxia COMPARISON: 04/29/2016 FINDINGS: LUNGS: No active pulmonary disease. PLEURA: No significant pleural effusion identified, no pneumothorax apparent. CARDIOVASCULAR: The heart is normal in size. There is mild vascular congestion OSSEOUS STRUCTURES: No significant abnormalities. VISUALIZED UPPER ABDOMEN: Normal. OTHER FINDINGS: None. IMPRESSION: Mild vascular congestion
[2016-05-07 08:49] LABS: ALB/GLOB RATIO 0.5 (1.1-1.8); BILIRUBIN,TOTAL 0.8 mg/dL (0.2-1.3); CALCIUM 8.1 mg/dL (8.4-10.5); POTASSIUM 5.5 mmol/L (3.6-5.0); TOTAL PROTEIN 6.5 g/dL (5.8-8.3)
[2016-05-07 08:59] LABS: TROPONIN I 0.02 ng/mL
--- NOTE | 2016-05-07 09:14 | RAD ---
HISTORY: sob COMPARISON: 05/06/2016 FINDINGS: LUNGS: No active pulmonary disease. PLEURA: No significant pleural effusion identified, no pneumothorax apparent. CARDIOVASCULAR: Normal. OSSEOUS STRUCTURES: No significant abnormalities. VISUALIZED UPPER ABDOMEN: Normal. OTHER FINDINGS: Right-sided Port-A-Cath IMPRESSION: No active disease.
[2016-05-07] MEDS ORDERED: Sod Polystyrene Sulf 15 gm/60 ml Oral Susp PO ONE ×3 (09:29→16:16)
[2016-05-07] MEDS: Vancomycin 25 MG/ML PO SCH ×4 (10:00→22:14)
[2016-05-07] MEDS: Meropenem 1 GM in Sodium Chloride 0.9% 100 ML IVPB SCH ×2 (10:00→22:14)
[2016-05-07] MEDS: Famotidine 20mg/50ml 50 ML IVPB SCH ×3 (10:00→22:16)
--- NOTE | 2016-05-07 10:43 | CON ---
DATE: 05/07/2016 The patient is in 3R, 374. HISTORY OF PRESENT ILLNESS: The patient is a 65-year-old gentleman who was admitted to the hospital, to the ICU, on 04/29. He was going through alcohol withdrawal. He had lost family members and had become very agitated. He has a history of hypertension, diabetes, bladder cancer, pancreatic cancer and alcohol abuse. He has a history of CVA. I am asked now to see the patient as he has been transferred to the floor and was stable. Dr. Dorsey had found him to be dyspneic for unknown reasons. Morning x-ray was read as normal by the radiologist, Dr. Varghese. I will review this x-ray this a.m. when it is available. A D-dimer was just completed which is over 12. The patient has no additional problems other than very severe renal insufficiency. He is anuric over the last 24 hours and has elevated BUN and creatinine. FAMILY HISTORY: Hypertension. SOCIAL HISTORY: Former smoker and alcohol user. ALLERGIES: PENICILLIN. PAST MEDICAL HISTORY: We see that the patient has alcoholism, alcohol withdrawal, pancreatic CA, renal insufficiency, watery diarrhea, diabetes mellitus, cancer of the bladder, cerebrovascular accident, REVIEW OF SYSTEMS: Pt with shortness of breath. No chest pains, hemoptysis or pleurisy. No night sweats, no weight loss. No memory loss. All other systems negative. PHYSICAL EXAMINATION: GENERAL: He is awake, but combative. VITAL SIGNS: Show no fever. Temperature 97.6, pulse 100, respiratory rate 24, blood pressure 120/70, oxygen sat 98% on supplemental oxygen. HEENT: Normocephalic, atraumatic. NECK: Supple, no JVD, no lymphadenopathy, no bruit. CARDIOVASCULAR: Regular rhythm, S1, S2 without murmur, gallop or rub. CHEST: Decreased breath sounds throughout, but essentially clear. ABDOMEN: Soft, bowel sounds normoactive without mass, guarding, rebound or organomegaly. EXTREMITIES: Reveal no clubbing, cyanosis or edema. NEUROLOGIC: Awake and alert, cannot fully evaluate due to his inability to react appropriately and his combativeness. SKIN: Warm. LYMPHS: Lymphadenopathy does not appear present at this time. LABORATORY STUDIES: Have been reviewed. We note that the D-dimer was over 12 this morning. His white count 16, hemoglobin 9, hematocrit 27, platelet count 18. Troponin 0.02. The patient is now on the floor with abnormal respiratory distress, but abnormal mental status as well. ASSESSMENT: 1. Acute onset of respiratory insufficiency, however normal x-ray, BNP of 12, no abnormalities in the legs, 2. Significant renal insufficiency with a BUN of 58 and a creatinine of 1.5 3. Cancer of the pancreas and bladder, 4. Severe anemia 5. Urinary tract infection 6. Non-ST elevation myocardial infarction 7. Elevated D-Dimer r/o PE. PLAN: Due to the patient's renal insufficiency, we cannot do a CT angio. We will have to do leg studies for vascular insufficiency as well as a VQ scan. If this cannot be done, I would suggest empiric heparin therapy if he plans to stay in the hospital. There now is word that he is asking to leave against medical advice. I stand ready to do all that is necessary to keep him here and treat him as necessary. We will be available and continue to follow his status. Thank you for the opportunity to evaluate this gentleman. Jackson Padgett MD cc: [id number] TT: 05/07/2016 10:42:19 Confirmation # [id number] Dictation # [id number] david DELGADO
[2016-05-07 11:01] LABS: ARTERIAL BLOOD GAS HCO3 15.5 mmol/L (21-28); ARTERIAL BLOOD GAS O2 CAPACITY 12.1 mL/dl (16-24); ARTERIAL BLOOD GAS PH 7.32 (7.35-7.45); ARTERIAL BLOOD HGB O2 SAT 95.9 % (95.0-98.0); CARBOXYHEMOGLOBIN 2.4 % (0.5-1.5); HHB 1.1 % (0-5); METHEMOGLOBIN 0.6 % (0.0-3.0)
[2016-05-07] MEDS ORDERED: Heparin25000 units/250ml 1/2NS 250 ML IV PRN (11:23)
[2016-05-07] MEDS: Insulin Lispro (humaLOG) LOW Coverage SC SCH ×4 (11:30→22:46)
--- NOTE | 2016-05-07 14:59 | NM ---
COMPARISON: Portable chest same day TECHNIQUE: 30.0 mCi technetium 99-m DTPA aerosol. 5.2 mCI technetium 99-m MAA administered intravenously. FINDINGS: VENTILATION COMPONENT: Normal. PERFUSION COMPONENT: Normal. IMPRESSION: Lowprobability ventilation perfusion scan for pulmonary embolism.
--- NOTE | 2016-05-07 15:08 | CARD ---
APPROVED REPORT EXAM: Two-dimensional and M-mode echocardiogram with Doppler and color Doppler. INDICATION Infection:Rule out subacute bacterial endocarditis 2D DIMENSIONS Left Atrium (2D)4.0 (1.6-4.0cm)IVSd1.1 (0.7-1.1cm) LVDd4.9 (3.9-5.9cm)PWd1.1 (0.7-1.1cm) LVDs3.5 (2.5-4.0cm)FS (%) 27.8 % LVEF (%)53.7 (>50%) M-Mode DIMENSIONS Aortic Root3.00 (2.2-3.7cm)Aortic Cusp Exc.1.80 (1.5-2.0cm) Aortic Valve AoV Peak Irozyjnf631.0cm/Handy Peak GR.16mmHg Mitral Valve MV E Mggsrvqp97.9cm/sMV A Hvjrvmlf31.2cm/sE/A ratio0.8 TDI E/Lateral E'0.0E/Medial E'0.0 Tricuspid Valve TR Peak Oovcgijb536yy/sRAP NFMTRVWS71huZhYW Peak Gr.12mmHg [id number] LEFT VENTRICLE The left ventricle is normal size. There is normal left ventricular wall thickness. The left ventricular function is normal. The left ventricular ejection fraction is within the normal range. There is normal LV segmental wall motion. Transmitral Doppler flow pattern is Grade I-abnormal relaxation pattern. RIGHT VENTRICLE The right ventricle is normal size. There is normal right ventricular wall thickness. The right ventricular systolic function is normal. ATRIA The left atrium size is normal. The right atrium size is normal. AORTIC VALVE The aortic valve is mildly thickened. There is no aortic valvular stenosis. MITRAL VALVE The mitral valve is mildly thickened. There is no mitral valve regurgitation noted. TRICUSPID VALVE There is trace tricuspid regurgitation. There is no pulmonary hypertension. GREAT VESSELS The aortic root is normal in size. PERICARDIAL EFFUSION There is a trace loculated anterior pericardial effusion. <Conclusion> Poor Echo Window No valvular vegitation seen
--- NOTE | 2016-05-07 15:38 | CP.PCM.PN ---
Subjective - Date & Time of Evaluation Date of Evaluation: 05/07/16 Time of Evaluation: 09:20 - Subjective Subjective: Comfortable in bed, not in distress. Objective - Vital Signs/Intake and Output Vital Signs (last 24 hours): Temp Pulse Resp BP Pulse Ox 97.7 F 111 H 20 103/67 94 L 05/07/16 08:17 05/07/16 08:17 05/07/16 08:17 05/07/16 08:17 05/07/16 08:17 Intake and Output: 05/07/16 05/07/16 06:59 18:59 Intake Total 1340 Output Total 850 Balance 490 - Medications Medications: Current Medications Albuterol/Ipratropium (Duoneb 3 Mg/0.5 Mg (3 Ml) Ud) 3 ml IH [id number] PRN PRN Reason: Cough and congestion Last Admin: 05/07/16 07:47 Dose: 3 ml Chlordiazepoxide (Librium) 25 mg PO Q8 PRN; Protocol PRN Reason: Agitation Last Admin: 05/06/16 05:15 Dose: 25 mg Meropenem 1 gm/ Sodium (Chloride) 100 mls @ 100 mls/hr IVPB Q12 WIL PRN Reason: Protocol Stop: 05/14/16 11:31 Last Admin: 05/06/16 22:20 Dose: 100 mls/hr Famotidine (Pepcid 20mg/50ml Premix) 50 mls @ 100 mls/hr IVPB Q12 WIL Last Admin: 05/06/16 22:19 Dose: 100 mls/hr Daptomycin 720 mg/ Sodium (Chloride) 100 mls @ 200 mls/hr IV Q48H WIL PRN Reason: Protocol Stop: 05/12/16 10:01 Insulin Human Lispro (Humalog Low) 0 units SC ACHS WIL PRN Reason: Protocol Last Admin: 05/06/16 23:10 Dose: Not Given Morphine Sulfate (Morphine) 1 mg IVP Q4H PRN PRN Reason: Pain, moderate (4-7) Oxycodone/Acetaminophen (Percocet 5/325 Mg Tab) 1 tab PO Q4H PRN PRN Reason: Pain, moderate (4-7) Stop: 05/09/16 04:29 Last Admin: 05/06/16 05:15 Dose: 1 tab Saliva Substitute (Saliva Substitute) 0 ml PO 5XD PRN PRN Reason: DRY MOUTH Vancomycin HCl (Vancocin 25 Mg/Ml (Oral Use)) 125 mg PO QID WIL PRN Reason: Protocol Last Admin: 05/06/16 22:20 Dose: 125 mg - Labs Labs: 05/06/16 23:55 05/06/16 23:55 PT 14.4 Seconds (9.9-11.8) H 04/29/16 02:40 INR 1.33 (0.93-1.08) H 04/29/16 02:40 APTT 30.4 Seconds (23.7-30.8) 05/01/16 19:30 - Constitutional Appears: Non-toxic, No Acute Distress - Head Exam Head Exam: NORMAL INSPECTION - ENT Exam ENT Exam: Mucous Membranes Moist - Neck Exam Neck Exam: absent: Lymphadenopathy, Meningismus - Respiratory Exam Respiratory Exam: Decreased Breath Sounds - Cardiovascular Exam Cardiovascular Exam: +S1, +S2 - GI/Abdominal Exam GI & Abdominal Exam: Soft. absent: Tenderness Assessment and Plan - Assessment and Plan (Free Text) Plan: Assessment Severe sepsis with acute renal failure secondary to Klebsiella pneumoniae bacteremia probably from severe cystitis and pyelonephritis, R/O port infection ; also with C diff associated diarrhea, slowly improving; also now with Micrococcus species in the 05/04/2016 blood cx from the port, which is a contaminant (unlike other coagulase negative staph) acute anemia Pancreatic cancer S/P chemotherapy and radiation therapy and surgery HTN DM obesity with BMI 34 Plan continue Meropenem (but 05/01 cx are still positive but the 05/04 cx are negative x 3 days); CT Abdomen and pelvis reviewed; continue PO Vancomycin (day 6); will repeat 2D echo in the next 1-3 days Follow up Urology evaluation May consider antibiotic lock therapy but would suggest change of port-a-cath if feasible Will continue to follow clinically Overall prognosis is poor
--- NOTE | 2016-05-07 16:24 | PN ---
DATE: 05/07/2016 The patient is currently undergoing a VQ scan to evaluate his hypoxia and hypotension. He is increasingly lethargic. VITAL SIGNS: Blood pressure today is 103/67 with a heart rate of 111, breathing at 20 breaths per minute with an oxygen saturation of 94%, oral temperature is 97.7 degrees. I's and O's are documented as 1300/850 in the last 24 hours. LABORATORY STUDIES: White count is 16.1, H and H is 9/27.5 with a platelet count of 96,000. There were 98% neutrophils, 8% lymphocytes, and 2% monocytes. D-dimer was elevated at 12.12. ABG had a pH of 7.32 with a pCO2 of 30, PaO2 of 100 and an oxygen saturation of 99% on an FiO2 of 40%. Sodium is 142, potassium is 5.5, chloride is 111, bicarbonate 19, BUN/creatinine is 77/3.3 with a glucose of 221. Corrected calcium is 9.3. Urinalysis was yellow, turbid with a pH of 7.0, specific gravity of 1.015, 1+ protein and 3+ blood with only 10-15 RBCs per high power field. IMPRESSION AND PLAN: The patient is a 65-year-old gentleman with history of pancreatic cancer for which a Whipple was attempted in the past, but was unable to be performed and for which he is on chemotherapy with gemcitabine and Abraxane with his last doses having been on 04/13, history of bladder cancer, type 2 diabetes mellitus that is noninsulin dependent, hypertension, originally admitted with weakness following several days of diarrhea and dark stool, noted to have acute kidney injury with rhabdomyolysis, lactic acidosis, hypocalcemia, anemia. Hospitalization has been complicated by Klebseilla pneumoniae bacteremia as well. 1. Last night, patient was noted to have become hypoxic with an oxygen saturation ranging from 80%-90% on 2 liters oxygen via nasal cannula, accompanied by cyanosis. He was also edematous on exam and was given intravenous furosemide. Chest x-ray does not reveal any evidence of congestive heart failure, however, nor any obvious infiltrates today. Last night, he is described as having only mild vascular congestion. 2. Given his 2 underlying malignancies (pancreatic cancer as well as bladder cancer), certainly there is a concern of pulmonary embolism and the patient has been empirically started on a heparin infusion. Of note, his platelet count has been as low at 7 this admission, although it has been trending down and is up to 96,000 today. Certainly, this raises the possibility that the acute kidney injury could also be secondary to renal vein thrombosis, but since the patient is already on systemic anticoagulation, at present we can hold off on checking a renal vein Doppler. 3. The patient is having some relative hypotension. Since he did receive furosemide last night, urine sodium will be inaccurate. We will, however, check his urine urea nitrogen as well as urine creatinine and if the fractional excretion of urea nitrogen is less than 35%, then this would suggest that the patient is volume responsive and may benefit from volume expansion. Given the fact that he is already quite edematous, however, I would opt to use albumin instead of crystalloid (i.e., albumin instead of normal saline) if the fractional excretion of urea nitrogen is less than 35%. 4. The patient is noted to be hyperkalemic, which is secondary to his acute kidney injury as well as metabolic acidosis. A dose of Kayexalate has been ordered. 5. Overall, the patient's prognosis remains quite poor given the fact that he has 2 malignancies. Additionally, CT scan of his abdomen and pelvis earlier this admission revealed severe cystitis with pneumatosis of his bladder as well as possible bladder perforation. He does remain on oral vancomycin for Clostridium difficile colitis as well as meropenem for Klebsiella pneumoniae bacteremia and it is noted that he has a port in place. Of note, blood cultures through 05/01 revealed Klebseilla pneumoniae. Blood cultures from 05/04 revealed micrococcus species. 6. Since the patient is on systemic anticoagulation and since he is thrombocytopenic, he will need to continue gastrointestinal prophylaxis and he is currently on famotidine. Barry Shahid MD, MARIO cc: [id number] TT: 05/07/2016 16:23:53 Confirmation # [id number] Dictation # [id number] en [id number]
--- NOTE | 2016-05-07 16:37 | US ---
HISTORY: Leg pain and swelling. Evaluate for DVT PHYSICIAN(S): Horacio Olivia MD. TECHNIQUE: Duplex sonography and color-flow Doppler with graded compression were used to evaluate the deep venous systems of both lower extremities. FINDINGS: The exam is very limited by body habitus and edema. The visualized deep venous systems of both lower extremities are sonographically normal and compressible. Normal wave forms and augmentation are seen. There is no sonographic evidence for deep venous thrombosis in the visualized segments of both lower extremities. IMPRESSION: No sonographic evidence for deep venous thrombosis in the visualized segments of both lower extremities. Limited study
--- NOTE | 2016-05-07 16:40 | CARD ---
APPROVED REPORT EKG Measurement Heart [id number] HI 142P52 [id number] <Conclusion> Sinus tachycardia Cannot rule out Anterior infarct, age undetermined Abnormal ECG
--- NOTE | 2016-05-07 16:43 | CP.PCM.PN ---
Subjective - Date & Time of Evaluation Date of Evaluation: 05/07/16 Time of Evaluation: 16:38 - Subjective Subjective: Medicine PGY1 - GI service Patient seen and examined at bedside this afternoon. GI service reconsulted for abdominal distention. present at bedside. Per patient's , she first noted the abdominal distention yesterday. She reported that he has seemed more out of it than normal. On examination, patient was mouth-breathing and had a soft, distended abdomen. Denied abdominal pain, nausea, vomiting, fever, chills. Is passing gas and having bowel movements. Abdominal flat plate ordered. 12 point ROS as per above, otherwise negative. Objective - Vital Signs/Intake and Output Vital Signs (last 24 hours): Temp Pulse Resp BP Pulse Ox 97.7 F 111 H 20 103/67 94 L 05/07/16 08:17 05/07/16 08:17 05/07/16 08:17 05/07/16 08:17 05/07/16 08:17 Intake and Output: 05/07/16 05/07/16 06:59 18:59 Intake Total 1340 360 Output Total 850 50 Balance 490 310 - Medications Medications: Current Medications Albuterol/Ipratropium (Duoneb 3 Mg/0.5 Mg (3 Ml) Ud) 3 ml IH [id number] PRN PRN Reason: Cough and congestion Last Admin: 05/07/16 07:47 Dose: 3 ml Arformoterol Tartrate (Brovana) 15 mcg IH [id number] WIL Budesonide (Pulmicort Respules) 0.5 mg IH [id number] WIL Chlordiazepoxide (Librium) 25 mg PO Q8 PRN; Protocol PRN Reason: Agitation Last Admin: 05/06/16 05:15 Dose: 25 mg Meropenem 1 gm/ Sodium (Chloride) 100 mls @ 100 mls/hr IVPB Q12 WIL PRN Reason: Protocol Stop: 05/14/16 11:31 Last Admin: 05/07/16 10:00 Dose: 100 mls/hr Famotidine (Pepcid 20mg/50ml Premix) 50 mls @ 100 mls/hr IVPB Q12 WIL Last Admin: 05/07/16 10:00 Dose: 100 mls/hr Amino Acids (Clinimix 5/20 % (1000 Ml)) 1,000 mls @ 30 mls/hr IV .Q24H [facility] Stop: 05/10/16 16:01 Insulin Human Lispro (Humalog Low) 0 units SC ACHS WIL PRN Reason: Protocol Last Admin: 05/06/16 23:10 Dose: Not Given Morphine Sulfate (Morphine) 1 mg IVP Q4H PRN PRN Reason: Pain, moderate (4-7) Oxycodone/Acetaminophen (Percocet 5/325 Mg Tab) 1 tab PO Q4H PRN PRN Reason: Pain, moderate (4-7) Stop: 05/09/16 04:29 Last Admin: 05/06/16 05:15 Dose: 1 tab Saliva Substitute (Saliva Substitute) 0 ml PO 5XD PRN PRN Reason: DRY MOUTH Vancomycin HCl (Vancocin 25 Mg/Ml (Oral Use)) 125 mg PO QID WIL PRN Reason: Protocol Last Admin: 05/07/16 14:00 Dose: 125 mg - Labs Labs: 05/07/16 08:30 05/07/16 08:30 PT 14.4 Seconds (9.9-11.8) H 04/29/16 02:40 INR 1.33 (0.93-1.08) H 04/29/16 02:40 APTT 30.4 Seconds (23.7-30.8) 05/01/16 19:30 - Constitutional Appears: Older Than Stated Age, Chronically Ill - Head Exam Head Exam: ATRAUMATIC, NORMOCEPHALIC - Respiratory Exam Respiratory Exam: Decreased Breath Sounds. absent: Clear to Ausculation Bilateral, Rales, Rhonchi, Wheezes, Respiratory Distress, NORMAL BREATHING PATTERN - Cardiovascular Exam Cardiovascular Exam: Tachycardia, +S1, +S2. absent: JVD, Rubs, Murmur - GI/Abdominal Exam GI & Abdominal Exam: Distended, Firm, Soft, Diminished Bowel Sounds. absent: Guarding, Rigid, Tenderness, Normal Bowel Sounds Additional comments: tympanic abdomen - Neurological Exam Neurological Exam: Alert, Awake - Skin Additional comments: b/l lower extremity venous stasis Assessment and Plan - Assessment and Plan (Free Text) Assessment: 65yo male with history of pancreatic ca, bladder ca, hypertension and DMT2 that originally presented c/o generalized weakness and fatigue associated with multiple episodes of watery diarrhea for 3 days prior to presentation. GI reconsulted due to abdominal distention. 1. Abdominal distention 2. Normocytic anemia 3. Thrombocytopenia 4. Acute kidney injury 5. Gram negative carmen Bacteremia 6. Cdiff diarrhea 7. Pancreatic/Bladder Ca 8. Hypertension 9. Diabetes Mellitus type 2 Plan: -Abdominal flat plate pending -CT Chest/Abdomen/Pelvis pending -Continue PO vancomycin for cdiff colitis -No overt signs of GI bleeding (melena, hematochezia, hematemesis) -Continue antibiotic management for bacteremia/cystitis as per ID recommendations -Recommend urology evaluation and follow up recommendations -Nephrology on board - f/u recommendations -Continue medical management as per primary team -Will follow up imaging and make recommendations as indicated
[2016-05-07] MEDS ORDERED: Insulin Regular 1 UNITS/0.01 ML ML SC STA (16:45)
[2016-05-07] MEDS ORDERED: Albuterol 0.5% Inhal Sol (5 mg/ ml) 20 ml IH STA (16:46)
--- NOTE | 2016-05-07 17:32 | CARD ---
APPROVED REPORT EKG Measurement Heart [id number] FL 136P68 [id number] <Conclusion> Sinus tachycardia Anterior infarct, age undetermined Abnormal ECG
[2016-05-07] MEDS ORDERED: Levalbuterol 1.25 MG/3 ML Inhal Soln UD IH STA (17:39)
--- NOTE | 2016-05-07 17:43 | RAD ---
PROCEDURE: Abdomen single view HISTORY: abdominal distention COMPARISON: None TECHNIQUE: Standard protocol for this study/examination. FINDINGS: Mildly dilated transverse colon. No evidence of mechanical obstruction. IMPRESSION: Limited study, no visible obstruction.
--- NOTE | 2016-05-07 17:47 | CARD ---
APPROVED REPORT EKG Measurement Heart [id number] CO 130P60 [id number] <Conclusion> Sinus tachycardia Otherwise normal ECG
--- NOTE | 2016-05-07 18:17 | CP.PCM.PN ---
Subjective - Date & Time of Evaluation Date of Evaluation: 05/07/16 Time of Evaluation: 17:30 - Subjective Subjective: called by nurse pt has been mouth breathing . pt has hx of pancreatic ca, bladder ca/ DM,sepsis.is breathing with mouth open pulse ox is 89 %apears somewhat anxious. Objective - Vital Signs/Intake and Output Vital Signs (last 24 hours): Temp Pulse Resp BP Pulse Ox 97.5 F L 107 H 20 120/68 96 05/07/16 17:27 05/07/16 17:27 05/07/16 17:27 05/07/16 17:27 05/07/16 17:27 Intake and Output: 05/07/16 05/07/16 06:59 18:59 Intake Total 1340 360 Output Total 850 50 Balance 490 310 - Medications Medications: Current Medications Albuterol/Ipratropium (Duoneb 3 Mg/0.5 Mg (3 Ml) Ud) 3 ml IH [id number] PRN PRN Reason: Cough and congestion Last Admin: 05/07/16 16:42 Dose: 3 ml Arformoterol Tartrate (Brovana) 15 mcg IH [id number] WIL Budesonide (Pulmicort Respules) 0.5 mg IH [id number] WIL Chlordiazepoxide (Librium) 25 mg PO Q8 PRN; Protocol PRN Reason: Agitation Last Admin: 05/06/16 05:15 Dose: 25 mg Meropenem 1 gm/ Sodium (Chloride) 100 mls @ 100 mls/hr IVPB Q12 WIL PRN Reason: Protocol Stop: 05/14/16 11:31 Last Admin: 05/07/16 10:00 Dose: 100 mls/hr Famotidine (Pepcid 20mg/50ml Premix) 50 mls @ 100 mls/hr IVPB Q12 WIL Last Admin: 05/07/16 10:00 Dose: 100 mls/hr Amino Acids (Clinimix 5/20 % (1000 Ml)) 1,000 mls @ 30 mls/hr IV .Q24H [facility] Stop: 05/10/16 16:01 Insulin Human Lispro (Humalog Low) 0 units SC ACHS WIL PRN Reason: Protocol Last Admin: 05/06/16 23:10 Dose: Not Given Morphine Sulfate (Morphine) 1 mg IVP Q4H PRN PRN Reason: Pain, moderate (4-7) Oxycodone/Acetaminophen (Percocet 5/325 Mg Tab) 1 tab PO Q4H PRN PRN Reason: Pain, moderate (4-7) Stop: 05/09/16 04:29 Last Admin: 05/06/16 05:15 Dose: 1 tab Saliva Substitute (Saliva Substitute) 0 ml PO 5XD PRN PRN Reason: DRY MOUTH Vancomycin HCl (Vancocin 25 Mg/Ml (Oral Use)) 125 mg PO QID WIL PRN Reason: Protocol Last Admin: 05/07/16 14:00 Dose: 125 mg - Labs Labs: 05/07/16 08:30 05/07/16 08:30 PT 14.4 Seconds (9.9-11.8) H 04/29/16 02:40 INR 1.33 (0.93-1.08) H 04/29/16 02:40 APTT 30.4 Seconds (23.7-30.8) 05/01/16 19:30 - Constitutional Appears: Other (anxious) - Head Exam Head Exam: NORMOCEPHALIC - Eye Exam Eye Exam: Normal appearance Pupil Exam: PERRL - ENT Exam ENT Exam: Mucous Membranes Moist - Neck Exam Neck Exam: Full ROM - Respiratory Exam Respiratory Exam: Decreased Breath Sounds - Cardiovascular Exam Cardiovascular Exam: RRR, +S1, +S2 - GI/Abdominal Exam GI & Abdominal Exam: Distended, Soft - Extremities Exam Extremities Exam: Pedal Edema - Neurological Exam Neurological Exam: Alert, Awake, Oriented x3 - Psychiatric Exam Psychiatric exam: Anxious - Skin Skin Exam: Dry, Warm Assessment and Plan - Assessment and Plan (Free Text) Assessment: sob / pancreatic ca/vq scan low probability. sepsis. Plan: xopenex 1.25mg x1 stat. abg .
--- NOTE | 2016-05-07 18:30 | CT ---
PROCEDURE: CT HEAD WITHOUT CONTRAST. HISTORY: r/o cva COMPARISON: Noncontrast head CT performed 04/29/16 TECHNIQUE: Axial computed tomography images were obtained through the head/brain without intravenous contrast. Radiation dose: Total exam DLP = 895.58 mGy-cm. FINDINGS: Extensive streak artifact obscures evaluation of the skullbase. Examination limited by motion. HEMORRHAGE: No intracranial hemorrhage. BRAIN: Diffuse atrophy with prominence of the ventricles and sulci noted. No mass effect or edema. Intracranial atherosclerosis. Right frontoparietal encephalomalacia. Scattered periventricular and subcortical white matter hypodensities, which are nonspecific, but often seen with chronic microvascular ischemic disease. Please note that MRI with diffusion imaging is more sensitive in the detection of acute ischemic event. VENTRICLES: No hydrocephalus. CALVARIUM: Unremarkable. PARANASAL SINUSES: Unremarkable as visualized. No significant inflammatory changes. MASTOID AIR CELLS: Unremarkable as visualized. No inflammatory changes. OTHER FINDINGS: Partial opacification of the bilateral external auditory canals, likely cerumen. IMPRESSION: Limited study due to streak and motion artifact. Right frontoparietal encephalomalacia. Please note acute on chronic infarction cannot be excluded. MRI may be considered for further evaluation if clinically indicated. Additional findings as above.
--- NOTE | 2016-05-07 18:49 | CT ---
PROCEDURE: CT Chest, Abdomen and Pelvis without intravenous contrast HISTORY: Dehydration, anemia, sepsis, renal failure. COMPARISON: 04/30/2016. CT abdomen and pelvis. May 07, 2016. Ventilation-perfusion scan. Summary of findings on the comparison examination: Low probability ventilation perfusion scan for pulmonary embolism. TECHNIQUE: Unenhanced study. Neither oral nor intravenous contrast administered. Sensitivity and specificity for acute inflammatory processes limited by the absence of oral and intravenous contrast. Radiation dose: Total exam DLP = mGy-cm. FINDINGS: CT CHEST WITHOUT CONTRAST: LUNGS: Stable findings small left pleural effusion and lower lobe consolidative changes. Dependent atelectasis right lower lobe. This is a new finding. MEDIASTINUM: Unremarkable. Normal caliber aorta and pulmonary arterial trunk. No radiographic findings to suggest acute or significant cardiovascular disease. LYMPH NODES: Unremarkable. PLEURA: Stable small left pleural effusion BONES: Multilevel degenerative changes. OTHER FINDINGS: None. CT ABDOMEN AND PELVIS: LIVER: Unremarkable. No gross lesion or ductal dilatation. GALLBLADDER AND BILE DUCTS: Unremarkable. PANCREAS: Unremarkable. No gross lesion or ductal dilatation. SPLEEN: Unremarkable. ADRENALS: Unremarkable. No mass. KIDNEYS AND URETERS: Inflammatory changes, upper tract perinephric stranding is improved but remains tickling in left kidney. Incidental right renal cyst. This is in the upper pole. VASCULATURE: Unremarkable. No aortic aneurysm. BOWEL: Diverticulosis without an acute inflammatory component or other associated pathologic process. . APPENDIX: Normal appendix. PERITONEUM: New small volume intra-abdominal and pelvic ascites. LYMPH NODES: Unremarkable. No enlarged lymph nodes. BLADDER: Persistent thickening of the wall of the urinary bladder. There is punctate air within the wall, emphysematous cystitis. Air-fluid level in the pattern likely iatrogenic related prior instrumentation, a Beard catheter remains. However, the balloon component appears to be within the intra prostatic urethra. . Complex fluid, debris and hemorrhage within the urinary bladder wall. New line Incidental finding(s): Bladder diverticulum posterior laterally on the right near the ureterovesical junction. REPRODUCTIVE: Unremarkable. BONES: Multilevel degenerative changes. Grade 1 anterolisthesis L5-S1. Associated spondylolysis. OTHER FINDINGS: Were standing anasarca, flank edema IMPRESSION: 1. Severe cystitis including an emphysematous component. Urinary bladder wall is irregular and thickened. Hemorrhagic debris within the bladder noted. Malposition Beard catheter. 2. Low volume new abdominal pelvic ascites. 3. Interval improvement in upper tract inflammatory changes/pyelonephritis. 4. Worsening subcutaneous edema and anasarca. 5. Migration of the Beard catheter, the balloon component resides in the intra prostatic urethra. Please refer to series 2, image 266. Limitations of the current study: Absence of intravenous and oral contrast this clinical setting with the after mentioned findings.
--- NOTE | 2016-05-07 19:25 | CP.PCM.PN ---
Subjective - Date & Time of Evaluation Date of Evaluation: 05/07/16 Time of Evaluation: 19:23 - Subjective Subjective: Nurse calls and tells that CT abdomen report was received, Beard catheter balloon is extaprostatic in urethra. Same size Beard catheter was replaced. Objective - Vital Signs/Intake and Output Vital Signs (last 24 hours): Temp Pulse Resp BP Pulse Ox 97.5 F L 107 H 20 160/70 H 96 05/07/16 17:27 05/07/16 17:27 05/07/16 17:27 05/07/16 18:22 05/07/16 17:27 Intake and Output: 05/07/16 05/08/16 18:59 06:59 Intake Total 360 Output Total 50 Balance 310 - Medications Medications: Current Medications Albuterol/Ipratropium (Duoneb 3 Mg/0.5 Mg (3 Ml) Ud) 3 ml IH [id number] PRN PRN Reason: Cough and congestion Last Admin: 05/07/16 16:42 Dose: 3 ml Arformoterol Tartrate (Brovana) 15 mcg IH [id number] WIL Budesonide (Pulmicort Respules) 0.5 mg IH [id number] WIL Chlordiazepoxide (Librium) 25 mg PO Q8 PRN; Protocol PRN Reason: Agitation Last Admin: 05/06/16 05:15 Dose: 25 mg Meropenem 1 gm/ Sodium (Chloride) 100 mls @ 100 mls/hr IVPB Q12 WIL PRN Reason: Protocol Stop: 05/14/16 11:31 Last Admin: 05/07/16 10:00 Dose: 100 mls/hr Famotidine (Pepcid 20mg/50ml Premix) 50 mls @ 100 mls/hr IVPB Q12 WIL Last Admin: 05/07/16 10:00 Dose: 100 mls/hr Amino Acids (Clinimix 5/20 % (1000 Ml)) 1,000 mls @ 30 mls/hr IV .Q24H WIL Stop: 05/10/16 16:01 Insulin Human Lispro (Humalog Low) 0 units SC ACHS WIL PRN Reason: Protocol Last Admin: 05/07/16 18:21 Dose: 1 units Morphine Sulfate (Morphine) 1 mg IVP Q4H PRN PRN Reason: Pain, moderate (4-7) Oxycodone/Acetaminophen (Percocet 5/325 Mg Tab) 1 tab PO Q4H PRN PRN Reason: Pain, moderate (4-7) Stop: 05/09/16 04:29 Last Admin: 05/06/16 05:15 Dose: 1 tab Saliva Substitute (Saliva Substitute) 0 ml PO 5XD PRN PRN Reason: DRY MOUTH Vancomycin HCl (Vancocin 25 Mg/Ml (Oral Use)) 125 mg PO QID WIL PRN Reason: Protocol Last Admin: 05/07/16 18:23 Dose: Not Given - Labs Labs: 05/07/16 08:30 05/07/16 08:30 PT 14.4 Seconds (9.9-11.8) H 04/29/16 02:40 INR 1.33 (0.93-1.08) H 04/29/16 02:40 APTT 30.4 Seconds (23.7-30.8) 05/01/16 19:30
[2016-05-07] MEDS: Arformoterol 15 mcg/2 ml Inh Sol IH SCH (21:45)
[2016-05-07] MEDS: Budesonide 0.5 mg/2 ml Inhal Susp UD IH SCH (21:45)
[2016-05-08 05:41] LABS: MEAN CELL VOLUME 90.9 fL (80.0-105.0); MEAN CORPUSCULAR HEMOGLOBIN 29.3 pg (25.0-35.0); MEAN CORPUSCULAR HGB CONC 32.2 g/dl (31.0-37.0); MEAN PLATELET VOLUME 11.4 fl (7.0-11.0); RED CELL DISTRIBUTION WIDTH 18.1 % (11.5-14.5)
[2016-05-08 05:53] LABS: ALB/GLOB RATIO 0.5 (1.1-1.8); BILIRUBIN,TOTAL 0.5 mg/dL (0.2-1.3); CALCIUM 7.6 mg/dL (8.4-10.5); TOTAL PROTEIN 6.8 g/dL (5.8-8.3)
[2016-05-08 06:05] LABS: POTASSIUM 6.3 mmol/L (3.6-5.0)
[2016-05-08] MEDS ORDERED: Albuterol 0.083% Inhal Sol (2.5 mg/3 mL) UD IH STA (06:13)
[2016-05-08] MEDS ORDERED: Insulin Regular 1 UNITS/0.01 ML ML IV STA (06:13)
[2016-05-08] MEDS ORDERED: Sodium Bicarbonate (8.4%) 50 Meq Syringe IVP ONE (06:13)
[2016-05-08] MEDS ORDERED: Sod Polystyrene Sulf 15 gm/60 ml Oral Susp PO STA (06:13)
[2016-05-08] MEDS ORDERED: Dextrose 50% SYRINGE Inj (50 ml) IVP ONE ×2 (06:13→21:49)
--- NOTE | 2016-05-08 06:21 | CP.PCM.PN ---
Subjective - Date & Time of Evaluation Date of Evaluation: 05/08/16 Time of Evaluation: 06:18 - Subjective Subjective: Potassium level is 6.3 mMol/L. Patient is awake alert. Responds to commands. Objective - Vital Signs/Intake and Output Vital Signs (last 24 hours): Temp Pulse Resp BP Pulse Ox 97.5 F L 107 H 20 160/70 H 96 05/07/16 17:27 05/07/16 17:27 05/07/16 17:27 05/07/16 18:22 05/07/16 17:27 Intake and Output: 05/07/16 05/08/16 18:59 06:59 Intake Total 360 0 Output Total 50 300 Balance 310 -300 - Medications Medications: Current Medications Albuterol Sulfate (Albuterol 0.083% Inhal Margarita (2.5 Mg/3 Ml) Ud) 15 mg IH STAT STA Stop: 05/08/16 06:14 Albuterol/Ipratropium (Duoneb 3 Mg/0.5 Mg (3 Ml) Ud) 3 ml IH [id number] PRN PRN Reason: Cough and congestion Last Admin: 05/07/16 21:45 Dose: 3 ml Arformoterol Tartrate (Brovana) 15 mcg IH [id number] WIL Last Admin: 05/07/16 21:45 Dose: 15 mcg Budesonide (Pulmicort Respules) 0.5 mg IH [id number] WIL Last Admin: 05/07/16 21:45 Dose: 0.5 mg Calcium Gluconate (Calcium Gluconate Iv) 1,000 mg IVP ONCE ONE Stop: 05/08/16 06:14 Chlordiazepoxide (Librium) 25 mg PO Q8 PRN; Protocol PRN Reason: Agitation Last Admin: 05/06/16 05:15 Dose: 25 mg Dextrose (Dextrose 50% Inj) 50 ml IVP ONCE ONE Stop: 05/08/16 06:14 Meropenem 1 gm/ Sodium (Chloride) 100 mls @ 100 mls/hr IVPB Q12 WIL PRN Reason: Protocol Stop: 05/14/16 11:31 Last Admin: 05/07/16 22:14 Dose: 100 mls/hr Famotidine (Pepcid 20mg/50ml Premix) 50 mls @ 100 mls/hr IVPB Q12 WIL Last Admin: 05/07/16 22:16 Dose: 100 mls/hr Amino Acids (Clinimix 5/20 % (1000 Ml)) 1,000 mls @ 30 mls/hr IV .Q24H [facility] Stop: 05/10/16 16:01 Insulin Human Lispro (Humalog Low) 0 units SC ACHS WIL PRN Reason: Protocol Last Admin: 05/07/16 22:46 Dose: Not Given Insulin Human Regular (Humulin R) 10 units IV STAT STA Stop: 05/08/16 06:14 Morphine Sulfate (Morphine) 1 mg IVP Q4H PRN PRN Reason: Pain, moderate (4-7) Oxycodone/Acetaminophen (Percocet 5/325 Mg Tab) 1 tab PO Q4H PRN PRN Reason: Pain, moderate (4-7) Stop: 05/09/16 04:29 Last Admin: 05/06/16 05:15 Dose: 1 tab Saliva Substitute (Saliva Substitute) 0 ml PO 5XD PRN PRN Reason: DRY MOUTH Sodium Bicarbonate (Sodium Bicarbonate (8.4%) 50 Meq Syringe) 50 meq IVP ONCE ONE Stop: 05/08/16 06:14 Sodium Polystyrene Sulfonate (Kayexalate Oral Susp) 30 gm PO STAT STA Stop: 05/08/16 06:14 Vancomycin HCl (Vancocin 25 Mg/Ml (Oral Use)) 125 mg PO QID WIL PRN Reason: Protocol Last Admin: 05/07/16 22:14 Dose: 125 mg - Labs Labs: 05/08/16 05:30 05/08/16 05:30 PT 14.4 Seconds (9.9-11.8) H 04/29/16 02:40 INR 1.33 (0.93-1.08) H 04/29/16 02:40 APTT 30.4 Seconds (23.7-30.8) 05/01/16 19:30 - Constitutional Appears: Well, No Acute Distress - Head Exam Head Exam: ATRAUMATIC, NORMAL INSPECTION, NORMOCEPHALIC - Eye Exam Eye Exam: Normal appearance - ENT Exam ENT Exam: Mucous Membranes Dry - Respiratory Exam Respiratory Exam: NORMAL BREATHING PATTERN - Cardiovascular Exam Cardiovascular Exam: absent: JVD - Rectal Exam Rectal Exam: Deferred - Extremities Exam Extremities Exam: Normal Inspection - Back Exam Back Exam: NORMAL INSPECTION - Neurological Exam Neurological Exam: Altered (drowsy.) - Skin Skin Exam: Normal Color Assessment and Plan - Assessment and Plan (Free Text) Assessment: A/P: Hyperkalemia. Bladder cancer. Pancreatic cancer. Altered mental status. See orders. Will discuss with .
[2016-05-08] MEDS ORDERED: Levalbuterol 1.25 MG/3 ML Inhal Soln UD ONE (07:54)
[2016-05-08 08:08] LABS: ARTERIAL BLOOD GAS O2 CAPACITY 12.3 mL/dl (16-24); ARTERIAL BLOOD HGB O2 SAT 94.7 % (95.0-98.0); HHB 2.4 % (0-5); METHEMOGLOBIN 0.9 % (0.0-3.0)
--- NOTE | 2016-05-08 08:12 | CP.PCM.PN ---
<Rebecca Solares - Last Filed: 05/08/16 08:48> Subjective - Date & Time of Evaluation Date of Evaluation: 05/08/16 Time of Evaluation: 07:46 - Subjective Subjective: Resident Rapid Response Note Patient is a 65 year old male with past medical history of hypertension, diabetes, bladder cancer, and pancreatic cancer admitted for generalized weakness and diarrhea with dark stool. Rapid response was called at 7:46AM in room 374-2. Patient was becoming shortness of breath, hypoxia, and obtunded. Patient desaturated at 83% while on nasal cannula. Per staff, patient is noncompliant with NC. Patient's vital on site was BP127/66, Pulse 110. Patient appeared to have secretions in his upper airway but was not able to clear by coughing. Unable to obtain detail ROS due to patient's condition. Patient was then started on BIPAP and Suction was performed which provided patient some relief. Xopenex and lasix were given. CBC, ABG, troponin, PTT, PT, EKG were ordered. Patient will be transfer to ICU for further monitoring. ICU attending Dr. Indio Jeffrey was notified at approximately 8:05am. Objective - Vital Signs/Intake and Output Vital Signs (last 24 hours): Temp Pulse Resp BP Pulse Ox 97.5 F L 107 H 20 160/70 H 96 05/07/16 17:27 05/07/16 17:27 05/07/16 17:27 05/07/16 18:22 05/07/16 17:27 Intake and Output: 05/08/16 05/08/16 06:59 18:59 Intake Total 0 0 Output Total 300 0 Balance -300 0 - Medications Medications: Current Medications Albuterol/Ipratropium (Duoneb 3 Mg/0.5 Mg (3 Ml) Ud) 3 ml IH [id number] PRN PRN Reason: Cough and congestion Last Admin: 05/07/16 21:45 Dose: 3 ml Arformoterol Tartrate (Brovana) 15 mcg IH [id number] WIL Last Admin: 05/07/16 21:45 Dose: 15 mcg Budesonide (Pulmicort Respules) 0.5 mg IH [id number] WIL Last Admin: 05/07/16 21:45 Dose: 0.5 mg Chlordiazepoxide (Librium) 25 mg PO Q8 PRN; Protocol PRN Reason: Agitation Last Admin: 05/06/16 05:15 Dose: 25 mg Meropenem 1 gm/ Sodium (Chloride) 100 mls @ 100 mls/hr IVPB Q12 [facility] PRN Reason: Protocol Stop: 05/14/16 11:31 Last Admin: 05/07/16 22:14 Dose: 100 mls/hr Famotidine (Pepcid 20mg/50ml Premix) 50 mls @ 100 mls/hr IVPB Q12 [facility] Last Admin: 05/07/16 22:16 Dose: 100 mls/hr Amino Acids (Clinimix 5/20 % (1000 Ml)) 1,000 mls @ 30 mls/hr IV .Q24H [facility] Stop: 05/10/16 16:01 Insulin Human Lispro (Humalog Low) 0 units SC ACHS [facility] PRN Reason: Protocol Last Admin: 05/07/16 22:46 Dose: Not Given Levalbuterol HCl (Xopenex) 1.25 mg IH TIDRESP [facility] Morphine Sulfate (Morphine) 1 mg IVP Q4H PRN PRN Reason: Pain, moderate (4-7) Oxycodone/Acetaminophen (Percocet 5/325 Mg Tab) 1 tab PO Q4H PRN PRN Reason: Pain, moderate (4-7) Stop: 05/09/16 04:29 Last Admin: 05/06/16 05:15 Dose: 1 tab Saliva Substitute (Saliva Substitute) 0 ml PO 5XD PRN PRN Reason: DRY MOUTH Vancomycin HCl (Vancocin 25 Mg/Ml (Oral Use)) 125 mg PO QID [facility] PRN Reason: Protocol Last Admin: 05/07/16 22:14 Dose: 125 mg - Labs Labs: 05/08/16 05:30 05/08/16 05:30 PT 14.4 Seconds (9.9-11.8) H 04/29/16 02:40 INR 1.33 (0.93-1.08) H 04/29/16 02:40 APTT 30.4 Seconds (23.7-30.8) 05/01/16 19:30 - Constitutional Appears: Non-toxic, No Acute Distress, Chronically Ill - Head Exam Head Exam: ATRAUMATIC, NORMOCEPHALIC - Eye Exam Eye Exam: Normal appearance, PERRL Pupil Exam: PERRL - ENT Exam ENT Exam: Mucous Membranes Moist - Neck Exam Neck Exam: Normal Inspection - Respiratory Exam Respiratory Exam: Accessory Muscle Use, NORMAL BREATHING PATTERN. absent: Wheezes Additional comments: Diffused crackled appreciated bilaterally - Cardiovascular Exam Cardiovascular Exam: REGULAR RHYTHM, +S1, +S2 - GI/Abdominal Exam GI & Abdominal Exam: Distended, Soft. absent: Rigid - Extremities Exam Extremities Exam: Normal Capillary Refill, Normal Inspection - Neurological Exam Neurological Exam: Alert, Awake. absent: Oriented x3 (obtunded) - Psychiatric Exam Psychiatric exam: Normal Affect - Skin Skin Exam: Dry, Warm Assessment and Plan - Assessment and Plan (Free Text) Assessment: Shortness of breath, hypoxia -Patient is current hypodermically stable -Started BiPAP -Xopenex and Lasix -CBC, ABG, troponin, PTT, PT, EKG, CXR -Patient will be upgraded to ICU <Danny Jeffrey - Last Filed: 05/09/16 18:44> Objective - Vital Signs/Intake and Output Vital Signs (last 24 hours): Temp Pulse Resp BP Pulse Ox 96 F L 64 20 88/53 L 100 05/09/16 16:00 05/09/16 18:30 05/09/16 16:00 05/09/16 18:30 05/09/16 18:30 Intake and Output: 05/09/16 05/09/16 06:59 18:59 Intake Total 485 3318 Output Total 10 1600 Balance 475 1718 - Medications Medications: Current Medications Albumin Human (Albumin Human 25% (25 Gm/100 Ml)) 25 gm IV Q6 [facility] Stop: 05/11/16 18:01 Albuterol/Ipratropium (Duoneb 3 Mg/0.5 Mg (3 Ml) Ud) 3 ml IH [id number] PRN PRN Reason: Shortness Of Breath Budesonide (Pulmicort Respules) 0.5 mg IH [id number] WIL Last Admin: 05/09/16 07:48 Dose: 0.5 mg Chlordiazepoxide (Librium) 25 mg PO Q8 PRN; Protocol PRN Reason: Agitation Last Admin: 05/06/16 05:15 Dose: 25 mg Meropenem 1 gm/ Sodium (Chloride) 100 mls @ 100 mls/hr IVPB Q12 [facility] PRN Reason: Protocol Stop: 05/14/16 11:31 Last Admin: 05/09/16 11:07 Dose: 100 mls/hr Famotidine (Pepcid 20mg/50ml Premix) 50 mls @ 100 mls/hr IVPB Q12 [facility] Last Admin: 05/09/16 11:06 Dose: 100 mls/hr Dexmedetomidine HCl (Precedex 4 Mcg/Ml (100 Ml)) 100 mls @ 5.96 mls/hr IV .[id number] PRN; Protocol; 0.2 MCG/KG/HR PRN Reason: Agitation Last Admin: 05/09/16 14:00 Dose: 14.901 mls/hr Sodium Bicarbonate 150 meq/ (Dextrose) 1,150 mls @ 50 mls/hr IV .Q23H [facility] Sodium Chloride (Sodium Chloride 0.9%) 1,000 mls @ 999 mls/hr IV .Q1H1M [facility] Stop: 05/09/16 19:32 Insulin Human Lispro (Humalog Low) 0 units SC ACHS [facility] PRN Reason: Protocol Last Admin: 05/09/16 17:00 Dose: 1 units Levalbuterol HCl (Xopenex) 1.25 mg IH TIDRESP [facility] Last Admin: 05/09/16 13:12 Dose: 1.25 mg Saliva Substitute (Saliva Substitute) 0 ml PO 5XD PRN PRN Reason: DRY MOUTH Vancomycin HCl (Vancocin 25 Mg/Ml (Oral Use)) 125 mg PO QID [facility] PRN Reason: Protocol Last Admin: 05/09/16 18:20 Dose: 125 mg - Labs Labs: 05/09/16 05:00 05/09/16 05:00 PT 11.4 Seconds (9.9-11.8) 05/08/16 08:30 INR 1.06 (0.93-1.08) 05/08/16 08:30 APTT 30.0 Seconds (23.7-30.8) 05/08/16 08:30
[2016-05-08] MEDS ORDERED: Albuterol-Ipratrop 3 mg / 0.5 (3 ml) UD ONE (08:25)
[2016-05-08] MEDS: Arformoterol 15 mcg/2 ml Inh Sol IH SCH (08:40)
[2016-05-08] MEDS: Budesonide 0.5 mg/2 ml Inhal Susp UD IH SCH ×2 (08:40→20:00)
[2016-05-08] MEDS: Levalbuterol 1.25 MG/3 ML Inhal Soln UD IH SCH ×3 (08:40→21:06)
--- NOTE | 2016-05-08 08:54 | RAD ---
HISTORY: RAPID RESPONSE . Technique: Single view portable semi erect @ 08:10. COMPARISON: May 07, 2016. FINDINGS: LUNGS: No active pulmonary disease. PLEURA: No significant pleural effusion identified, no pneumothorax apparent. CARDIOVASCULAR: No radiographic findings to suggest acute or significant cardiovascular disease. Venous access catheter in stable, satisfactory position. OSSEOUS STRUCTURES: No significant abnormalities. VISUALIZED UPPER ABDOMEN: Normal. OTHER FINDINGS: None. IMPRESSION: No active disease. No significant interval change compared to the prior examination(s).
[2016-05-08 09:02] LABS: HEMATOCRIT 27.9 % (42.0-52.0); MEAN CELL VOLUME 90.9 fL (80.0-105.0); MEAN CORPUSCULAR HEMOGLOBIN 29.3 pg (25.0-35.0); MEAN CORPUSCULAR HGB CONC 32.3 g/dl (31.0-37.0); MEAN PLATELET VOLUME 11.9 fl (7.0-11.0); RED CELL DISTRIBUTION WIDTH 18.1 % (11.5-14.5)
[2016-05-08 09:14] LABS: INR 1.06 (0.93-1.08)
[2016-05-08] MEDS: Famotidine 20mg/50ml 50 ML IVPB SCH ×2 (09:43→22:35)
[2016-05-08] MEDS: Meropenem 1 GM in Sodium Chloride 0.9% 100 ML IVPB SCH ×2 (09:44→22:39)
[2016-05-08] MEDS: Insulin Lispro (humaLOG) LOW Coverage SC SCH ×4 (09:45→22:33)
[2016-05-08] MEDS: Vancomycin 25 MG/ML PO SCH ×3 (09:47→18:16)
--- NOTE | 2016-05-08 10:15 | PN ---
DATE: 05/08/2016 SUBJECTIVE: The patient has had a major deterioration. He has agonal breathing and appears to be extremelty ill. He has been ordered to go to the ICU by . D-dimer done yesterday did not sotelo out as a pulmonary embolism. VQ and bilateral venous Dopplers were negative. Heparin was originally started but was discontinued. Renal insufficiency remains the same.He is breathinmg agon all6y. Discussed his condition with RE: multiple Carcinomas, including PANCREAS. I am told that we are to do al that is medically required at the request of the family. I am told that the patient survived to resucuiative efforts over the night. PHYSICAL EXAMINATION: GENERAL: The patient remains agonal since last night. VITAL SIGNS: Reflect no changes with an afebrile status, pulse of 110, respiratory rate 30, blood pressure 130/74, O2 sat 98% on oxygen. HEENT: Normocephalic, atraumatic. NECK: Supple, no JVD, no lymphadenopathy or bruit. CARDIOVASCULAR: Regular rhythm, S1, S2 without murmur, gallop or rub. CHEST: Decreased breath sounds throughout, but essentially clear. GASTROINTESTINAL: Abdomen soft, bowel sounds normoactive without mass, guarding , rebound or organomegaly. EXTREMITIES: Reveal no clubbing, cyanosis or edema. There is no Yoselyn sign. NEUROLOGIC: Reveals no focal findings. Cannot proceed with further evaluation at this time due to the patient's status. The skin remains warm. There are areas of excoriations. Lymphadenopathy does not appear to be present. We have evaluated the supraclavicular notch as well as the cervical, inguinal and axillary areas. LABORATORY STUDIES: CAT scan was done of the chest and abdomen. The chest revealed some mild small infiltrates or compressive atelectasis at the base. There is a very small amount of fluid which I doubt can be tapped at this time. No other changes are noted. IMPRESSION: Problems include: 1. Impending Respiratory Failure. 2. No evidence of pulmonary embolism. 3. Acute renal insufficiency. 4. Sepsis. 5. Acute myocardial infarction. 6. Cancer of the pancreas. 7. Cancer of the bladder. 8. Small pleural effusion. 9. An abnormal D-dimer, but essentially no confirmatory evidence of pulmonary embolism. PLAN: Patient is to go to ICU..He will be started on BiPap immediately. Follow up ABG is pending. Continue Bronchodilators ..The prognosis is extremely guarded and we will discuss with the Tuyere Fitter in the ICU. Family should be approached again about changing expectations and making patient a DNR. Please feel free to call if any further help is necessary today. Jackson Padgett MD cc: [phone] TT: 05/08/2016 10:14:18 Confirmation # [id number] Dictation # [id number] david DELGADO
--- NOTE | 2016-05-08 11:08 | PN ---
DATE: 05/08/2016 I was called to rapid response on the patient - the second day in a row, he has been doing this. I a sked the ICU people to take a look at him and move back to the intensive care unit. He is short of b reath. I gave him a stat dose of 40 mg IV. He looks like he is fluid overloaded. MEDICATIONS: He is on Brovana, amino acids at 30 mL an hour because he is not eating, DuoNeb, insuli n coverage, Librium, Merrem IV, morphine for pain, Pepcid, Percocet for pain, Pulmicort, saliva, vanc omycin IV, and Xopenex. PHYSICAL EXAMINATION: VITAL SIGNS: He has a 98.7 temp, 111 pulse, 127/66 blood pressure, 24 respiratory rate, 96% O2 sat o n room air. HEAD: Atraumatic, normocephalic. GENERAL: He is in and out of it, but when he talked to me, he wakes up and he knows what is going on . He has got oxygen on with Ventimask. NECK: Supple. HEART: Regular rate. LUNGS: Decreased breath sounds bilaterally. Poor inspiration. ABDOMEN: Morbidly obese, soft, nontender. It looks more distended than yesterday. EXTREMITIES: No edema. LABORATORY DATA: He has a 17 white count, 8.7 hemoglobin, 27 hematocrit with 122 platelets. He has a 146 sodium, potassium 6.3, and I gave him Kayexalate. He has a BUN of 102. Creatinine is 4. Suga r is 166. Calcium is 7. AST is 22. ALT is 22. Alk phos is 212, and total protein is 6.8. Urine w as moderate bacteria as opposed too many. He is being seen by GI, infectious disease, renal, pulmonary, cardiology. I will get cardiology back in. I am quite concerned about him. Oncology/hematology was called in. Urology was called in. He is in deep trouble with pancreatic cancer, acute renal insufficiency and failure, CHF, COPD, urinary obstruction. I will discuss this again with the family at length, and we will check his labs tomorrow. Melquiades Dorsey DO cc: [phone] TT: 05/08/2016 11:07:07 Confirmation # [id number] Dictation # [id number] jn
[2016-05-08] MEDS ORDERED: Propofol 10 mg/ml Inj (20 ML) IVP ONE (12:42)
--- NOTE | 2016-05-08 12:54 | CP.PCM.PN ---
<Scott Fraser - Last Filed: 05/08/16 13:03> Subjective - Date & Time of Evaluation Date of Evaluation: 05/08/16 Time of Evaluation: 12:51 - Subjective Subjective: Medicine PGY1 - GI service Patient seen and examined at bedside. Patient had rapid response called to bedside previously for dyspnea. Patient on BiPAP pending transfer to ICU for further care. Poor prognosis. 12 point ROS limited due to patient status. Objective - Vital Signs/Intake and Output Vital Signs (last 24 hours): Temp Pulse Resp BP Pulse Ox 98.7 F 109 H 24 127/66 96 05/08/16 08:19 05/08/16 11:07 05/08/16 08:19 05/08/16 08:19 05/08/16 08:19 Intake and Output: 05/08/16 05/08/16 06:59 18:59 Intake Total 330 0 Output Total 300 0 Balance 30 0 - Medications Medications: Current Medications Albuterol/Ipratropium (Duoneb 3 Mg/0.5 Mg (3 Ml) Ud) 3 ml IH [id number] PRN PRN Reason: Shortness Of Breath Budesonide (Pulmicort Respules) 0.5 mg IH [id number] WIL Last Admin: 05/08/16 08:40 Dose: 0.5 mg Chlordiazepoxide (Librium) 25 mg PO Q8 PRN; Protocol PRN Reason: Agitation Last Admin: 05/06/16 05:15 Dose: 25 mg Meropenem 1 gm/ Sodium (Chloride) 100 mls @ 100 mls/hr IVPB Q12 [facility] PRN Reason: Protocol Stop: 05/14/16 11:31 Last Admin: 05/08/16 09:44 Dose: 100 mls/hr Famotidine (Pepcid 20mg/50ml Premix) 50 mls @ 100 mls/hr IVPB Q12 [facility] Last Admin: 05/08/16 09:43 Dose: 100 mls/hr Amino Acids (Clinimix 5/20 % (1000 Ml)) 1,000 mls @ 30 mls/hr IV .Q24H [facility] Stop: 05/10/16 18:01 Insulin Human Lispro (Humalog Low) 0 units SC ACHS [facility] PRN Reason: Protocol Last Admin: 05/08/16 12:37 Dose: Not Given Levalbuterol HCl (Xopenex) 1.25 mg IH TIDRESP [facility] Last Admin: 05/08/16 08:40 Dose: 1.25 mg Morphine Sulfate (Morphine) 1 mg IVP Q4H PRN PRN Reason: Pain, moderate (4-7) Oxycodone/Acetaminophen (Percocet 5/325 Mg Tab) 1 tab PO Q4H PRN PRN Reason: Pain, moderate (4-7) Stop: 05/09/16 04:29 Last Admin: 05/06/16 05:15 Dose: 1 tab Saliva Substitute (Saliva Substitute) 0 ml PO 5XD PRN PRN Reason: DRY MOUTH Vancomycin HCl (Vancocin 25 Mg/Ml (Oral Use)) 125 mg PO QID [facility] PRN Reason: Protocol Last Admin: 05/08/16 09:47 Dose: Not Given - Labs Labs: 05/08/16 08:30 05/08/16 05:30 PT 11.4 Seconds (9.9-11.8) 05/08/16 08:30 INR 1.06 (0.93-1.08) 05/08/16 08:30 APTT 30.0 Seconds (23.7-30.8) 05/08/16 08:30 - Constitutional Appears: In Acute Distress, Older Than Stated Age, Chronically Ill - Head Exam Head Exam: ATRAUMATIC, NORMOCEPHALIC - Respiratory Exam Respiratory Exam: Accessory Muscle Use, Respiratory Distress. absent: Clear to Ausculation Bilateral, NORMAL BREATHING PATTERN - Cardiovascular Exam Cardiovascular Exam: Tachycardia, +S1, +S2. absent: Gallop, JVD, Murmur - GI/Abdominal Exam GI & Abdominal Exam: Distended, Soft. absent: Guarding, Rigid, Tenderness, Rebound - Neurological Exam Neurological Exam: Alert, Awake Assessment and Plan - Assessment and Plan (Free Text) Assessment: 65yo male with history of pancreatic ca, bladder ca, hypertension and DMT2 that originally presented c/o generalized weakness and fatigue associated with multiple episodes of watery diarrhea for 3 days prior to presentation. GI reconsulted due to abdominal distention. 1. Respiratory distress 2. Abdominal distention 3. Normocytic anemia 4. Thrombocytopenia 5. Acute kidney injury 6. Gram negative carmen Bacteremia 7. Cdiff diarrhea 8. Pancreatic/Bladder Ca 9. Hypertension 10. Diabetes Mellitus type 2 Plan: -No acute interventions planned by GI -Recommend ICU evaluation/treatment for respiratory distress -Recommend f/u nephrology and urology recommendations given worsening renal function -Continue PO vancomycin for cdiff colitis -Continue antibiotic management for bacteremia/cystitis as per ID recommendations -Abdominal flat plate reviewed -CT Chest/Abdomen/Pelvis reviewed -No overt signs of GI bleeding (melena, hematochezia, hematemesis) -Will continue to follow and make recommendations as indicated Patient seen and case discussed with attending, Dr. Zavala <Law Zavala - Last Filed: 05/08/16 15:02> Objective - Vital Signs/Intake and Output Vital Signs (last 24 hours): Temp Pulse Resp BP Pulse Ox 98.7 F 109 H 24 127/66 96 05/08/16 08:19 05/08/16 11:07 05/08/16 08:19 05/08/16 08:19 05/08/16 08:19 Intake and Output: 05/08/16 05/08/16 06:59 18:59 Intake Total 330 0 Output Total 300 0 Balance 30 0 - Medications Medications: Current Medications Albuterol/Ipratropium (Duoneb 3 Mg/0.5 Mg (3 Ml) Ud) 3 ml IH [id number] PRN PRN Reason: Shortness Of Breath Budesonide (Pulmicort Respules) 0.5 mg IH [id number] WIL Last Admin: 05/08/16 08:40 Dose: 0.5 mg Chlordiazepoxide (Librium) 25 mg PO Q8 PRN; Protocol PRN Reason: Agitation Last Admin: 05/06/16 05:15 Dose: 25 mg Meropenem 1 gm/ Sodium (Chloride) 100 mls @ 100 mls/hr IVPB Q12 [facility] PRN Reason: Protocol Stop: 05/14/16 11:31 Last Admin: 05/08/16 09:44 Dose: 100 mls/hr Famotidine (Pepcid 20mg/50ml Premix) 50 mls @ 100 mls/hr IVPB Q12 [facility] Last Admin: 05/08/16 09:43 Dose: 100 mls/hr Insulin Human Lispro (Humalog Low) 0 units SC ACHS [facility] PRN Reason: Protocol Last Admin: 05/08/16 12:37 Dose: Not Given Levalbuterol HCl (Xopenex) 1.25 mg IH TIDRESP [facility] Last Admin: 05/08/16 08:40 Dose: 1.25 mg Morphine Sulfate (Morphine) 1 mg IVP Q4H PRN PRN Reason: Pain, moderate (4-7) Oxycodone/Acetaminophen (Percocet 5/325 Mg Tab) 1 tab PO Q4H PRN PRN Reason: Pain, moderate (4-7) Stop: 05/09/16 04:29 Last Admin: 05/06/16 05:15 Dose: 1 tab Saliva Substitute (Saliva Substitute) 0 ml PO 5XD PRN PRN Reason: DRY MOUTH Vancomycin HCl (Vancocin 25 Mg/Ml (Oral Use)) 125 mg PO QID WIL PRN Reason: Protocol Last Admin: 05/08/16 09:47 Dose: Not Given - Labs Labs: 05/08/16 08:30 05/08/16 05:30 PT 11.4 Seconds (9.9-11.8) 05/08/16 08:30 INR 1.06 (0.93-1.08) 05/08/16 08:30 APTT 30.0 Seconds (23.7-30.8) 05/08/16 08:30 Attending/Attestation - Attestation I have personally seen and examined this patient.: Yes I have fully participated in the care of the patient.: Yes I have reviewed all pertinent clinical information, including history, physical exam and plan: Yes Notes (Text): 05/08/16 14:56 65 year old male with h/o pancreatic cancer, bladder cancer, HTN, DM who was originally admitted with ADILENE, pyelonephritis, sepsis, C. diff. We are reconsulted for abdominal distention which is related to ascites. Currently, the patient is being transferred back to ICU for respiratory distress, worsening renal failure. 1. Ascites 2. Pancreatic cancer 3. Clostridium difficile diarrhea Plan: -ddx for ascites includes related to fluid overload from cardiac or renal causes in the setting of acute renal failure and generalized fluid overload/ anasarca, ddx also includes malignant ascites -if the patient becomes more stable, paracentesis could be considered, but for now would just treat with diuresis -agree with ICU transfer for management of respiratory failure requiring BIPAP as well as worsening renal failure -recommend urology consultation for obstructive renal failure in the setting of bladder cancer and recent h/o pyleonephritis -continue antibiotics per ID -reviewed images of his CT scan
--- NOTE | 2016-05-08 13:09 | PN ---
DATE: 05/08/2016 SUBJECTIVE: The patient is seen on the general medical floor. He is currently awaiting transfer to the intensive care unit. He is on BiPAP with an FiO2 of 60 %. Of note, he has been noted to be short of breath much of yesterday with an oxygen saturation decreasing to the 80s when he was off nasal cannula, but had then increased to 95% after nasal cannula had been applied. He remains on contact isolation for C. diff colitis. He is awake, but it is not clear how oriented he is as he appears to look somewhat wild eyed. OBJECTIVE: VITAL SIGNS: At present, vital signs are as follows: Blood pressure is 127/66 with a minimum documented blood pressure of 103/67 and a maximum of 160/70 in the last 24-hour period. Heart rate is 109, but has ranged from the 80s to approximately 125 beats per minute in the last 24-hour period. Oral temperature is 98.7 and the patient has a T-max in the last 48-hour period of 99.1. Respiratory rate is 24, but has ranged from 17-37 in the last 24-hour period. Oxygen saturation is 96%, but has ranged from 83% to 97% with the patient currently on an FiO2 of 60% via BiPAP. I's and O's in the last 24-hour period are documented as 600/350. The remainder of the exam was as follows: GENERAL: The patient appeared to be somewhat pale. NECK: I was unable to appreciate any jugular venous distension on account of his body habitus. HEENT: Conjunctivae were also pale. They were anicteric. CHEST: Lungs smith on my exam had very distant breath sounds, but there was no wheezing or rhonchi. Diaphragmatic excursion as well as the airflow into both lung smith was bilaterally symmetrical. CARDIAC: Had a regular rate and rhythm without any rubs or gallops. There were no heaves. ABDOMEN: Markedly distended but nontender without any rebounding, guarding or rigidity. I could not appreciate any hepatosplenomegaly. GENITOURINARY: Had a Beard catheter in place draining jose luis-colored urine. EXTREMITIES: The patient had 2+ dependent edema. NEUROLOGIC: He was awake, but appeared to be somewhat encephalopathic. VASCULAR: Had no bruits. LABORATORY STUDIES: As follows: White count is 18,000. H and H is 9/27.9 with a platelet count that is increased to 141,000. Sodium is 143, potassium is 6.3 (nonhemolyzed), chloride is 110, bicarbonate 21, BUN/creatinine is 102/ 4.0 with a glucose of 166. Calcium is 7.6, but after correcting for the albumin of 2.3, corrects to 8.9. Total protein/albumin is 6.8/2.3. Troponin I is 0.01. ABG had a pH of 7.24 with a pCO2 of 46, PaO2 of 88 and an oxygen saturation of 98% on an FIO2 of 50% and this was done this morning. Blood cultures from 05/04 have no growth to date in 1 bottle, but the other bottle has micrococcus species. Blood cultures from 05/01 have Klebseilla pneumoniae. Chest x-ray from this morning does not reveal any acute or significant cardiovascular disease and the lungs appear to be unremarkable as well. CT scan of the patient's head from last night revealed right frontoparietal encephalomalacia, svria-[id number] infarction cannot be excluded. CT scan of the patient's chest, abdomen and pelvis without contrast revealed severe cystitis including an emphysematous component and an irregular thickened bladder with hemorrhagic debris and a malpositioned Beard catheter, new ascites , possible pyelonephritis, worsening anasarca. IMPRESSION AND PLAN: The patient is a 65-year-old gentleman with a known history of bladder cancer as well as pancreatic cancer for which he has been on chemotherapy with gemcitabine as well as Abraxane as recently as 04/13/2016, history of type 2 diabetes mellitus noninsulin dependent, hypertension with a baseline blood pressure of 140/90, originally admitted with diarrhea, dark stool , weakness and noted to have acute kidney injury with rhabdomyolysis, lactic acidosis, hypocalcemia, and anemia. Hospitalization has been complicated by persistent Klebsiella pneumoniae as well as several bouts of respiratory compromise. The patient was also noted to have acute kidney injury with hyperkalemia. 1. CT scan of the patient's chest, abdomen and pelvis from yesterday is appreciated. His Beard catheter appears to be malpositioned which could certainly be explaining his hyperkalemia, acute kidney injury as well as abdominal distention. We will request that the Ebard catheter be repositioned. 2. With respect to the patient's dyspnea, chest x-ray and CT scan of his chest do not reveal any obvious etiology and I am wondering whether or not the patient may have metastatic disease to his lungs that was not visible because of the lack of intravenous contrast. He is noted to be edematous, but as the Beard catheter is malpositioned, then any urine he will in response to furosemide will worsen his abdominal distention and result in more pain. A prior CT scan of his abdomen and pelvis during this admission did suggest perforation of his bladder and so if he is to make any more urine, it may result in a chemical peritonitis, so I would first reposition Beard catheter before doing anything else and confirming correct placement with bladder ultrasound. 3. Urology followup. 4. Also, with respect to the patient's shortness of breath and hypoxia is the fact that his abdomen is quite distended and I am wondering whether or not there may be a restricted component to diaphragmatic expansion as well and whether he would benefit from dedicated abdominal series to rule out fecal stasis. 5. Although patient's calcium is 7.6, after correcting for the albumin of 2.3, it is 8.9 which is within normal limits. 6. With respect to the patient's hyperkalemia, I do not have confidence in the patient to take any oral medications at this point and for Kayexalate, he would need to receive it per rectum instead. However, given the fact that he also has Clostridium difficile colitis, administration of Kayexalate would carry an increased risk of colonic necrosis. 7. Overall, the patient's prognosis is poor given the fact that he does have pancreatic cancer as well as bladder cancer that is likely active on the basis of his bladder ultrasound. Given the presence of 2 malignancies, he is not an ideal candidate for any form of dialysis, but rather I would strongly encourage transition to palliative care as well as consideration of hospice care for this very ill patient with very limited prognosis. 8. Infectious disease followup is also appreciated and the patient remains on meropenem for his Klebsiella pneumoniae bacteremia and is on oral vancomycin. An echocardiogram is to be repeated in the next several days. It is noted that he continues to have Port-A-Cath in place, which would require antibiotic lock therapy. 9. Also contributing to his acute kidney injury is what appears to be pyelonephritis as well, but the meropenem should be helpful for this also. 10. ABG prior to initiation of bilevel positive airway pressure did reveal respiratory acidosis and if his ABG does not improve, he would require intubation. 11. If the patient is intubated, I would consider administration of a paralytic agent to facilitate diaphragmatic excursion. Additionally, it may be prudent to reimage his abdomen to see whether or not there is fluid that could be removed via paracentesis since he is now noted to have ascites. Hopefully, with repositioning of his Beard catheter, his abdominal distention will decrease and his intra-abdominal pressure would decrease as well, which would improve his renal function (his acute kidney injury may also at least be partially secondary to intra-abdominal hypertension and a manifestation of abdominal compartment syndrome). Additionally, a paralytic agent would be beneficial in this regard as well. 12. After we are confident the Beard is in the proper location, the patient would then require diuretics, possibly with albumin dosed at 25 grams intravenously every 6 hours if he remains hypotensive. 13. The patient has been started on Clinimix given the fact that he is bacteremic. However, if he ends up getting intubated then it may be more prudent to convert this to feeding via the nasogastric tube. 14. For gastrointestinal prophylaxis, he is on famotidine currently, but we should renally adjust this to 20 mg intravenously daily. 15. For deep venous thrombosis prophylaxis, continue heparin 5000 units subcutaneously every 8 hours. Review of systems, past medical history, social history and family history were all reviewed and there were no new changes. More than 35 minutes were spent in the care of this ICU bound patient today, who is critically ill. Barry Shahid MD, MARIO cc: [id number] TT: 05/08/2016 13:08:56 Confirmation # [id number] Dictation # [id number] MTDAdan
--- NOTE | 2016-05-08 13:43 | PN ---
DATE: 05/08/2016 The patient is with acute respiratory distress and altered mental status today. PHYSICAL EXAMINATION: VITAL SIGNS: Blood pressure is 127/66, heart rate is tachycardic at 110. NECK: Negative JVD. LUNGS: Decreased breath sounds bilaterally. HEART: Reveals S1, S2. EXTREMITIES: Without edema. NEUROLOGIC: His mental status is depressed. LABORATORIES: From this morning revealed a potassium of 6.3 with a BUN and creatinine of ____ 4.0. Troponin this morning was negative x 1. The glucose is 139. The white count is 18,000. IMPRESSION: 1. Acute respiratory distress. 2. Altered mental status. 3. Diabetes mellitus. 4. Pancreatic cancer. 5. Respiratory failure. Given these findings, we will repeat a stat echocardiogram today. EKG shows no evidence for acute co ronary syndrome. We will obtain a stat BNP. Horacio Rogel MD cc: [id number] TT: 05/08/2016 13:43:13 Confirmation # [id number] Dictation # [id number] tn
--- NOTE | 2016-05-08 13:54 | RAD ---
HISTORY: ET placement COMPARISON: Plain radiograph performed earlier the same day FINDINGS: The endotracheal tube terminates 4 cm proximal to the corinne. The IJV line terminates in the SVC. LUNGS: There is bibasilar atelectasis. PLEURA: No significant pleural effusion identified, no pneumothorax apparent. CARDIOVASCULAR: The heart is normal in size. Atherosclerotic aortic arch calcifications are present. OSSEOUS STRUCTURES: No significant abnormalities. VISUALIZED UPPER ABDOMEN: Normal. OTHER FINDINGS: None. IMPRESSION: Endotracheal tube terminates 4 cm proximal to the corinne. Bibasilar atelectasis.
[2016-05-08 16:11] LABS: ARTERIAL BLOOD GAS HCO3 18.4 mmol/L (21-28); ARTERIAL BLOOD GAS O2 CAPACITY 12.1 mL/dl (16-24); ARTERIAL BLOOD GAS PH 7.26 (7.35-7.45); ARTERIAL BLOOD HGB O2 SAT 96.9 % (95.0-98.0); CARBOXYHEMOGLOBIN 1.6 % (0.5-1.5); HHB 0.5 % (0-5); METHEMOGLOBIN 1.1 % (0.0-3.0)
--- NOTE | 2016-05-08 16:23 | CP.CCUPN ---
<Brannon Greenberg - Last Filed: 05/08/16 17:26> CCU Subjective - Physician Review Subjective (Free Text): Pt seen and examined at bedside. DEVELOPMENT SCIENTIST called this morning on pt due to SOB. Pt had been desaturating into the 80's and had been noncompliant with nasal cannula. Pt was suctioned to remove secretions which helped his respiratory status. Pt was then placed on BIPAP which allowed his O2 saturations in the upper 90's. Pt received xopenex and lasix and blood work was ordered. Pt was then transferred to the ICU. Once in the ICU, patient began to worsen on BIPAP and was intubated. Pt was able to respond to commands, but was lethargic. 05/08/16 17:26 CCU Objective - Vital Signs / Intake & Output Intake and Output (Last 8hrs): Intake & Output 05/08/16 05/08/16 05/08/16 06:59 14:59 22:59 Intake Total 330 0 Output Total 0 Balance 330 0 Intake: IV 300 RCW PAC 300 Oral 30 0 Output: Urine 0 Urethral (Lu) 0 Other: Voiding Method Indwelling Catheter # Bowel Movements 0 - Physical Exam Head: Positive for: Atraumatic, Normocephalic Pupils: Positive for: PERRL Extroacular Muscles: Positive for: EOMI Conjunctiva: Positive for: Normal Ears: Positive for: Normal, NORMAL TM, Normal Canal. Negative for: Erythema Mouth: Positive for: Dry Neck: Positive for: Normal Range of Motion Respiratory/Chest: Positive for: Clear to Auscultation, Decreased Breath Sounds. Negative for: Respiratory Distress, Accessory Muscle Use, Rales, Rhonchi Cardiovascular: Positive for: Normal S1, S2, Tachycardic Abdomen: Positive for: Normal Bowel Sounds. Negative for: Tenderness, Distention, Peritoneal Signs Back: Positive for: Normal Inspection Upper Extremity: Positive for: Normal Inspection. Negative for: Cyanosis, Edema Lower Extremity: Positive for: Normal Inspection. Negative for: Edema Neurological: Positive for: GCS=15, CN II-XII Intact, Speech Normal Skin: Positive for: Warm, Dry, Pale, Other (Chronic venous stasis dermatitis changes to b/l lower extremities). Negative for: Rashes Psychiatric: Positive for: Alert, Oriented x 3, Normal Insight, Normal Concentration - Medications Active Medications: Active Medications Generic Name Dose Route Start Last Admin Trade Name Freq PRN Reason Stop Dose Admin Albuterol/Ipratropium 3 ml 05/08/16 09:41 Duoneb 3 Mg/0.5 Mg (3 Ml) Ud IH [id number] PRN Shortness Of Breath Budesonide 0.5 mg 05/07/16 20:00 05/08/16 08:40 Pulmicort Respules IH 0.5 mg [id number] WIL Administration Chlordiazepoxide 25 mg 04/29/16 11:52 05/06/16 05:15 Librium PO 25 mg Q8 PRN Administration Agitation Protocol Meropenem 1 gm/ Sodium 100 mls @ 100 mls/hr 04/30/16 11:30 05/08/16 09:44 Chloride IVPB 05/14/16 11:31 100 mls/hr Q12 WIL Administration Protocol Famotidine 50 mls @ 100 mls/hr 04/30/16 22:00 05/08/16 09:43 Pepcid 20mg/50ml Premix IVPB 100 mls/hr Q12 WIL Administration Insulin Human Lispro 0 units 04/29/16 11:30 05/08/16 12:37 Humalog Low SC Not Given ACHS [facility] Protocol Levalbuterol HCl 1.25 mg 05/08/16 08:00 05/08/16 15:41 Xopenex IH 1.25 mg TIDRESP WIL Administration Morphine Sulfate 1 mg 05/05/16 12:57 Morphine IVP Q4H PRN Pain, moderate (4-7) Oxycodone/Acetaminophen 1 tab 05/06/16 04:28 05/06/16 05:15 Percocet 5/325 Mg Tab PO 05/09/16 04:29 1 tab Q4H PRN Administration Pain, moderate (4-7) Saliva Substitute 0 ml 04/30/16 14:00 Saliva Substitute PO 5XD PRN DRY MOUTH Vancomycin HCl 125 mg 05/01/16 10:00 05/08/16 15:48 Vancocin 25 Mg/Ml (Oral Use) PO Not Given QID [facility] Protocol - Patient Studies Lab Studies: Microbiology Studies 05/04/16 11:45 Blood Culture - Preliminary Blood-Thru Central Line NO GROWTH AFTER 4 DAYS 05/04/16 11:30 S.aureus & Coag-Neg Staph PNA FISH - Final Blood-Thru Central Line Blood Culture - Final Micrococcus Species Gram Stain - Final Lab Studies 05/08/16 05/08/16 05/08/16 Range/Units 16:08 13:20 11:19 WBC (4.5-11.0) 10^3/ul RBC (3.5-6.1) 10^6/uL Hgb (14.0-18.0) gm/dL Hct (42.0-52.0) % MCV (80.0-105.0) fL MCH (25.0-35.0) pg MCHC (31.0-37.0) g/dl RDW (11.5-14.5) % Plt Count (120.0-450.0) 10^3/uL MPV (7.0-11.0) fl PT (9.9-11.8) Seconds INR (0.93-1.08) APTT (23.7-30.8) Seconds pCO2 41 (35-45) mm/Hg pO2 160.0 H (80-100) mm/Hg HCO3 18.4 L (21-28) mmol/L ABG pH 7.26 L (7.35-7.45) ABG Total CO2 19.7 L (22-28) mmol.L ABG O2 Saturation 99.5 H (95-98) % ABG O2 Content 12.0 L (15-23) ML/dl ABG Base Excess -8.1 L (-2.0-3.0) mmol/L ABG Hemoglobin 8.5 L (11.7-17.4) g/dL ABG Carboxyhemoglobin 1.6 H (0.5-1.5) % POC ABG HHb (Measured) 0.5 (0-5) % ABG Methemoglobin 1.1 (0.0-3.0) % ABG O2 Capacity 12.1 L (16-24) mL/dl Hgb O2 Saturation 96.9 (95.0-98.0) % FiO2 60.0 % Sodium (132-148) mmol/L Potassium (3.6-5.0) mmol/L Chloride (95-110) mmol/L Carbon Dioxide (21-33) mmol/L Anion Gap (10-20) BUN (7-21) mg/dL Creatinine (0.5-1.4) mg/dL Est GFR ( Amer) Est GFR (Non-Af Amer) POC Glucose (mg/dL) 147 H (65-110) mg/dL Random Glucose (70-110) mg/dL Calcium (8.4-10.5) mg/dL Total Bilirubin (0.2-1.3) mg/dL AST (15-59) U/L ALT (7-56) U/L Alkaline Phosphatase (38-133) U/L Total Creatine Kinase (35-230) U/L Troponin I ng/mL NT-Pro-B Natriuret Pep 692 H (0-450) pg/mL Total Protein (5.8-8.3) g/dL Albumin (3.0-4.8) g/dL Globulin gm/dL Albumin/Globulin Ratio (1.1-1.8) 05/08/16 05/08/16 05/08/16 Range/Units 08:30 08:00 07:19 WBC 18.0 H (4.5-11.0) 10^3/ul RBC 3.07 L (3.5-6.1) 10^6/uL Hgb 9.0 L (14.0-18.0) gm/dL Hct 27.9 L (42.0-52.0) % MCV 90.9 (80.0-105.0) fL MCH 29.3 (25.0-35.0) pg MCHC 32.3 (31.0-37.0) g/dl RDW 18.1 H (11.5-14.5) % Plt Count 141 (120.0-450.0) 10^3/uL MPV 11.9 H (7.0-11.0) fl PT 11.4 (9.9-11.8) Seconds INR 1.06 (0.93-1.08) APTT 30.0 (23.7-30.8) Seconds pCO2 46 H (35-45) mm/Hg pO2 88.0 (80-100) mm/Hg HCO3 18.0 L (21-28) mmol/L ABG pH 7.20 L (7.35-7.45) ABG Total CO2 19.4 L (22-28) mmol.L ABG O2 Saturation 97.5 (95-98) % ABG O2 Content 12.0 L (15-23) ML/dl ABG Base Excess -9.5 L (-2.0-3.0) mmol/L ABG Hemoglobin 8.9 L (11.7-17.4) g/dL ABG Carboxyhemoglobin 2.0 H (0.5-1.5) % POC ABG HHb (Measured) 2.4 (0-5) % ABG Methemoglobin 0.9 (0.0-3.0) % ABG O2 Capacity 12.3 L (16-24) mL/dl Hgb O2 Saturation 94.7 L (95.0-98.0) % FiO2 50.0 % Sodium (132-148) mmol/L Potassium (3.6-5.0) mmol/L Chloride (95-110) mmol/L Carbon Dioxide (21-33) mmol/L Anion Gap (10-20) BUN (7-21) mg/dL Creatinine (0.5-1.4) mg/dL Est GFR ( Amer) Est GFR (Non-Af Amer) POC Glucose (mg/dL) 139 H (65-110) mg/dL Random Glucose (70-110) mg/dL Calcium (8.4-10.5) mg/dL Total Bilirubin (0.2-1.3) mg/dL AST (15-59) U/L ALT (7-56) U/L Alkaline Phosphatase (38-133) U/L Total Creatine Kinase (35-230) U/L Troponin I ng/mL NT-Pro-B Natriuret Pep (0-450) pg/mL Total Protein (5.8-8.3) g/dL Albumin (3.0-4.8) g/dL Globulin gm/dL Albumin/Globulin Ratio (1.1-1.8) 05/08/16 05/08/16 05/07/16 Range/Units 06:00 05:30 20:20 WBC 17.0 H (4.5-11.0) 10^3/ul RBC 2.97 L (3.5-6.1) 10^6/uL Hgb 8.7 L (14.0-18.0) gm/dL Hct 27.0 L (42.0-52.0) % MCV 90.9 (80.0-105.0) fL MCH 29.3 (25.0-35.0) pg MCHC 32.2 (31.0-37.0) g/dl RDW 18.1 H (11.5-14.5) % Plt Count 122 (120.0-450.0) 10^3/uL MPV 11.4 H (7.0-11.0) fl PT (9.9-11.8) Seconds INR (0.93-1.08) APTT (23.7-30.8) Seconds pCO2 (35-45) mm/Hg pO2 (80-100) mm/Hg HCO3 (21-28) mmol/L ABG pH (7.35-7.45) ABG Total CO2 (22-28) mmol.L ABG O2 Saturation (95-98) % ABG O2 Content (15-23) ML/dl ABG Base Excess (-2.0-3.0) mmol/L ABG Hemoglobin (11.7-17.4) g/dL ABG Carboxyhemoglobin (0.5-1.5) % POC ABG HHb (Measured) (0-5) % ABG Methemoglobin (0.0-3.0) % ABG O2 Capacity (16-24) mL/dl Hgb O2 Saturation (95.0-98.0) % FiO2 % Sodium 143 (132-148) mmol/L Potassium 6.3 H* D (3.6-5.0) mmol/L Chloride 110 (95-110) mmol/L Carbon Dioxide 21 (21-33) mmol/L Anion Gap 18 (10-20) BUN 102 H (7-21) mg/dL Creatinine 4.0 H (0.5-1.4) mg/dL Est GFR ( Amer) 18 Est GFR (Non-Af Amer) 15 POC Glucose (mg/dL) (65-110) mg/dL Random Glucose 166 H (70-110) mg/dL Calcium 7.6 L (8.4-10.5) mg/dL Total Bilirubin 0.5 (0.2-1.3) mg/dL AST 22 (15-59) U/L ALT 22 (7-56) U/L Alkaline Phosphatase 212 H (38-133) U/L Total Creatine Kinase 28 L (35-230) U/L Troponin I 0.01 D ng/mL NT-Pro-B Natriuret Pep (0-450) pg/mL Total Protein 6.8 (5.8-8.3) g/dL Albumin 2.3 L (3.0-4.8) g/dL Globulin 4.4 gm/dL Albumin/Globulin Ratio 0.5 L (1.1-1.8) 05/07/16 05/07/16 05/07/16 Range/Units 20:10 16:53 16:18 WBC (4.5-11.0) 10^3/ul RBC (3.5-6.1) 10^6/uL Hgb (14.0-18.0) gm/dL Hct (42.0-52.0) % MCV (80.0-105.0) fL MCH (25.0-35.0) pg MCHC (31.0-37.0) g/dl RDW (11.5-14.5) % Plt Count (120.0-450.0) 10^3/uL MPV (7.0-11.0) fl PT (9.9-11.8) Seconds INR (0.93-1.08) APTT (23.7-30.8) Seconds pCO2 (35-45) mm/Hg pO2 (80-100) mm/Hg HCO3 (21-28) mmol/L ABG pH (7.35-7.45) ABG Total CO2 (22-28) mmol.L ABG O2 Saturation (95-98) % ABG O2 Content (15-23) ML/dl ABG Base Excess (-2.0-3.0) mmol/L ABG Hemoglobin (11.7-17.4) g/dL ABG Carboxyhemoglobin (0.5-1.5) % POC ABG HHb (Measured) (0-5) % ABG Methemoglobin (0.0-3.0) % ABG O2 Capacity (16-24) mL/dl Hgb O2 Saturation (95.0-98.0) % FiO2 % Sodium (132-148) mmol/L Potassium (3.6-5.0) mmol/L Chloride (95-110) mmol/L Carbon Dioxide (21-33) mmol/L Anion Gap (10-20) BUN (7-21) mg/dL Creatinine (0.5-1.4) mg/dL Est GFR ( Amer) Est GFR (Non-Af Amer) POC Glucose (mg/dL) 112 H 192 H 211 H (65-110) mg/dL Random Glucose (70-110) mg/dL Calcium (8.4-10.5) mg/dL Total Bilirubin (0.2-1.3) mg/dL AST (15-59) U/L ALT (7-56) U/L Alkaline Phosphatase (38-133) U/L Total Creatine Kinase (35-230) U/L Troponin I ng/mL NT-Pro-B Natriuret Pep (0-450) pg/mL Total Protein (5.8-8.3) g/dL Albumin (3.0-4.8) g/dL Globulin gm/dL Albumin/Globulin Ratio (1.1-1.8) Laboratory Results - last 24 hr 05/07/16 05/07/16 05/07/16 16:18 16:53 20:10 WBC RBC Hgb Hct MCV MCH MCHC RDW Plt Count MPV PT INR APTT pCO2 pO2 HCO3 ABG pH ABG Total CO2 ABG O2 Saturation ABG O2 Content ABG Base Excess ABG Hemoglobin ABG Carboxyhemoglobin POC ABG HHb (Measured) ABG Methemoglobin ABG O2 Capacity Hgb O2 Saturation FiO2 Sodium Potassium Chloride Carbon Dioxide Anion Gap BUN Creatinine Est GFR ( Amer) Est GFR (Non-Af Amer) POC Glucose (mg/dL) 211 H 192 H 112 H Random Glucose Calcium Total Bilirubin AST ALT Alkaline Phosphatase Total Creatine Kinase Troponin I NT-Pro-B Natriuret Pep Total Protein Albumin Globulin Albumin/Globulin Ratio 05/07/16 05/08/16 05/08/16 20:20 05:30 06:00 WBC 17.0 H RBC 2.97 L Hgb 8.7 L Hct 27.0 L MCV 90.9 MCH 29.3 MCHC 32.2 RDW 18.1 H Plt Count 122 MPV 11.4 H PT INR APTT pCO2 pO2 HCO3 ABG pH ABG Total CO2 ABG O2 Saturation ABG O2 Content ABG Base Excess ABG Hemoglobin ABG Carboxyhemoglobin POC ABG HHb (Measured) ABG Methemoglobin ABG O2 Capacity Hgb O2 Saturation FiO2 Sodium 143 Potassium 6.3 H* D Chloride 110 Carbon Dioxide 21 Anion Gap 18 BUN 102 H Creatinine 4.0 H Est GFR ( Amer) 18 Est GFR (Non-Af Amer) 15 POC Glucose (mg/dL) Random Glucose 166 H Calcium 7.6 L Total Bilirubin 0.5 AST 22 ALT 22 Alkaline Phosphatase 212 H Total Creatine Kinase 28 L Troponin I 0.01 D NT-Pro-B Natriuret Pep Total Protein 6.8 Albumin 2.3 L Globulin 4.4 Albumin/Globulin Ratio 0.5 L 05/08/16 05/08/16 05/08/16 07:19 08:00 08:30 WBC 18.0 H RBC 3.07 L Hgb 9.0 L Hct 27.9 L MCV 90.9 MCH 29.3 MCHC 32.3 RDW 18.1 H Plt Count 141 MPV 11.9 H PT 11.4 INR 1.06 APTT 30.0 pCO2 46 H pO2 88.0 HCO3 18.0 L ABG pH 7.20 L ABG Total CO2 19.4 L ABG O2 Saturation 97.5 ABG O2 Content 12.0 L ABG Base Excess -9.5 L ABG Hemoglobin 8.9 L ABG Carboxyhemoglobin 2.0 H POC ABG HHb (Measured) 2.4 ABG Methemoglobin 0.9 ABG O2 Capacity 12.3 L Hgb O2 Saturation 94.7 L FiO2 50.0 Sodium Potassium Chloride Carbon Dioxide Anion Gap BUN Creatinine Est GFR ( Amer) Est GFR (Non-Af Amer) POC Glucose (mg/dL) 139 H Random Glucose Calcium Total Bilirubin AST ALT Alkaline Phosphatase Total Creatine Kinase Troponin I NT-Pro-B Natriuret Pep Total Protein Albumin Globulin Albumin/Globulin Ratio 05/08/16 05/08/16 05/08/16 11:19 13:20 16:08 WBC RBC Hgb Hct MCV MCH MCHC RDW Plt Count MPV PT INR APTT pCO2 41 pO2 160.0 H HCO3 18.4 L ABG pH 7.26 L ABG Total CO2 19.7 L ABG O2 Saturation 99.5 H ABG O2 Content 12.0 L ABG Base Excess -8.1 L ABG Hemoglobin 8.5 L ABG Carboxyhemoglobin 1.6 H POC ABG HHb (Measured) 0.5 ABG Methemoglobin 1.1 ABG O2 Capacity 12.1 L Hgb O2 Saturation 96.9 FiO2 60.0 Sodium Potassium Chloride Carbon Dioxide Anion Gap BUN Creatinine Est GFR ( Amer) Est GFR (Non-Af Amer) POC Glucose (mg/dL) 147 H Random Glucose Calcium Total Bilirubin AST ALT Alkaline Phosphatase Total Creatine Kinase Troponin I NT-Pro-B Natriuret Pep 692 H Total Protein Albumin Globulin Albumin/Globulin Ratio EKG/Cardiology Studies: Cardiology / EKG Studies 05/07/16 15:26 ELECTROCARDIOGRAM Q8H Comment: Reason For Exam: hypoxia 05/08/16 06:16 EKG [ELECTROCARDIOGRAM] Stat Comment: Reason For Exam: hyperkalemia 6.3 05/08/16 08:00 EKG [ELECTROCARDIOGRAM] Stat Comment: Reason For Exam: RAPID RESPONSE PRE OP:: N Does Patient Have a Pacemaker?: No Fingerstick Blood Sugar Results: 147 Critical Care Progress Note - Nutrition Nutrition: Nutrition Category Date Time Status NPO Diet [DIET] Diets 05/08/16 Dinner Ordered Assessment/Plan - Assessment and Plan (Free Text) Plan: 65 y/o M with PMH of Pancreatic Cancer, Bladder Cancer, HTN, and DM presents the ICU with shortness of breath on the floor s/p intubation after failing BIPAP. Pt has been hypoxic over the past several days. Pt is now intubated with no sedation. Pt will be monitored closely for acute changes in mental or respiratory status. Pt will continued to be followed by all consultants in the ICU. Neuro: Intubated, not sedated Head CT (05/07/16) shows right frontoparietal encephalomalacia. Acute on chronic infarction cannot be excluded. Monitor for acute mental status change Cardio: Hemodynamically stable Keep MAP >65 Initial Echocardiogram shows normal EF with no vegetations As per Dr. Rogel, will repeat echocardiogram today given new findings Cardiology following Pulm: Intubated, not sedated PRVC: FiO2 - 60%, PEEP - 5, RR - 20, TV - 450 CXR (05/08/16) demonstrates bibasilar atelectasis Continue to keep O2 sat >90% GI: Increasing ascites. GI will consider diagnostic paracentesis once patient is more stable GI prophylaxis Consistent carbohydrate diet GI following, Dr. Sally Kathleen: Creatinine continues to rise daily over past several days Lu catheter repositioned, which should help with creatinine Recheck labs in AM No IVF at this time Maintain euvolemia Strict I's and O's Replete electrolytes as needed Nephrology consulted, Dr. Shahid. ID/Heme: Afebrile Leukocytosis rising daily Urine and blood cultures will be repeated Vancomycin PO for C. diff antigen Continue Merrem ID consulted, Dr. Erickson Maintain normothermia Hg and platelets stable Continue to transfuse to keep Hg above 7 Endo: Insulin sliding scale Check glucose levels q6h Maintain euglycemia Seen, reviewed, and discussed with attending Yari, PGY-1 <Wojciech ROQUE,Chrissy H - Last Filed: 05/08/16 17:47> CCU Objective - Vital Signs / Intake & Output Vital Signs (Last 4 hours): Vital Signs Temp Pulse Resp BP Pulse Ox 05/08/16 16:55 88 05/08/16 16:51 98.2 F 90 20 108/69 100 05/08/16 16:50 88 100 05/08/16 16:30 93 H 108/69 100 05/08/16 16:15 93 H 121/61 100 05/08/16 16:00 92 H 103/53 L 100 05/08/16 15:45 92 H 112/54 L 100 05/08/16 15:30 90 113/59 L 100 05/08/16 15:15 91 H 97/48 L 100 05/08/16 15:00 90 20 103/52 L 100 05/08/16 14:45 91 H 104/55 L 100 05/08/16 14:38 93 H 100 05/08/16 14:00 104/55 L Intake and Output (Last 8hrs): Intake & Output 05/08/16 05/08/16 05/08/16 06:59 14:59 22:59 Intake Total 330 0 Output Total 0 Balance 330 0 Intake: IV 300 RCW PAC 300 Oral 30 0 Output: Urine 0 Urethral (Lu) 0 Other: Voiding Method Indwelling Catheter # Bowel Movements 0 - Medications Active Medications: Active Medications Generic Name Dose Route Start Last Admin Trade Name Freq PRN Reason Stop Dose Admin Albuterol/Ipratropium 3 ml 05/08/16 09:41 Duoneb 3 Mg/0.5 Mg (3 Ml) Ud IH [id number] PRN Shortness Of Breath Budesonide 0.5 mg 05/07/16 20:00 05/08/16 08:40 Pulmicort Respules IH 0.5 mg [id number] WIL Administration Chlordiazepoxide 25 mg 04/29/16 11:52 05/06/16 05:15 Librium PO 25 mg Q8 PRN Administration Agitation Protocol Meropenem 1 gm/ Sodium 100 mls @ 100 mls/hr 04/30/16 11:30 05/08/16 09:44 Chloride IVPB 05/14/16 11:31 100 mls/hr Q12 WIL Administration Protocol Famotidine 50 mls @ 100 mls/hr 04/30/16 22:00 05/08/16 09:43 Pepcid 20mg/50ml Premix IVPB 100 mls/hr Q12 WIL Administration Insulin Human Lispro 0 units 04/29/16 11:30 05/08/16 16:57 Humalog Low SC Not Given ACHS [facility] Protocol Levalbuterol HCl 1.25 mg 05/08/16 08:00 05/08/16 15:41 Xopenex IH 1.25 mg TIDRESP WIL Administration Morphine Sulfate 1 mg 05/05/16 12:57 Morphine IVP Q4H PRN Pain, moderate (4-7) Oxycodone/Acetaminophen 1 tab 05/06/16 04:28 05/06/16 05:15 Percocet 5/325 Mg Tab PO 05/09/16 04:29 1 tab Q4H PRN Administration Pain, moderate (4-7) Saliva Substitute 0 ml 04/30/16 14:00 Saliva Substitute PO 5XD PRN DRY MOUTH Vancomycin HCl 125 mg 05/01/16 10:00 05/08/16 15:48 Vancocin 25 Mg/Ml (Oral Use) PO Not Given QID [facility] Protocol - Patient Studies Lab Studies: Microbiology Studies 05/04/16 11:45 Blood Culture - Preliminary Blood-Thru Central Line NO GROWTH AFTER 4 DAYS Lab Studies 05/08/16 05/08/16 05/08/16 Range/Units 17:17 16:43 16:08 WBC 9.7 D (4.5-11.0) 10^3/ul RBC 2.86 L (3.5-6.1) 10^6/uL Hgb 8.2 L (14.0-18.0) gm/dL Hct 25.9 L (42.0-52.0) % MCV 90.6 (80.0-105.0) fL MCH 28.7 (25.0-35.0) pg MCHC 31.7 (31.0-37.0) g/dl RDW 17.9 H (11.5-14.5) % Plt Count 97 L (120.0-450.0) 10^3/uL MPV 10.9 (7.0-11.0) fl Gran % 88.1 H (50.0-68.0) % Lymph % (Auto) 7.0 L (22.0-35.0) % Coleman % (Auto) 4.9 (1.0-6.0) % Eos % (Auto) 0.0 L (1.5-5.0) % Baso % (Auto) 0.0 (0.0-3.0) % Gran # 8.52 H (1.4-6.5) Lymph # 0.7 L (1.2-3.4) Coleman # 0.5 (0.1-0.6) Eos # 0.0 (0.0-0.7) Baso # 0.00 (0.0-2.0) K/mm3 PT (9.9-11.8) Seconds INR (0.93-1.08) APTT (23.7-30.8) Seconds pCO2 41 (35-45) mm/Hg pO2 160.0 H (80-100) mm/Hg HCO3 18.4 L (21-28) mmol/L ABG pH 7.26 L (7.35-7.45) ABG Total CO2 19.7 L (22-28) mmol.L ABG O2 Saturation 99.5 H (95-98) % ABG O2 Content 12.0 L (15-23) ML/dl ABG Base Excess -8.1 L (-2.0-3.0) mmol/L ABG Hemoglobin 8.5 L (11.7-17.4) g/dL ABG Carboxyhemoglobin 1.6 H (0.5-1.5) % POC ABG HHb (Measured) 0.5 (0-5) % ABG Methemoglobin 1.1 (0.0-3.0) % ABG O2 Capacity 12.1 L (16-24) mL/dl Hgb O2 Saturation 96.9 (95.0-98.0) % FiO2 60.0 % Sodium 144 (132-148) mmol/L Potassium 5.9 H* (3.6-5.0) mmol/L Chloride 112 H (98-107) mmol/L Carbon Dioxide 21 (21-33) mmol/L Anion Gap 17 (10-20) BUN 110 H (7-21) mg/dL Creatinine 4.1 H (0.5-1.4) mg/dL Est GFR ( Amer) 18 Est GFR (Non-Af Amer) 15 POC Glucose (mg/dL) 133 H (65-110) mg/dL Random Glucose 127 H (70-110) mg/dL Lactic Acid 1.1 (0.7-2.1) mmol/L Calcium 7.0 L (8.4-10.5) mg/dL Total Bilirubin 0.5 (0.2-1.3) mg/dL AST 24 (15-59) U/L ALT 22 (7-56) U/L Alkaline Phosphatase 192 H (38-133) U/L Total Creatine Kinase (35-230) U/L Troponin I ng/mL NT-Pro-B Natriuret Pep (0-450) pg/mL Total Protein 6.5 (5.8-8.3) g/dL Albumin 2.2 L (3.0-4.8) g/dL Globulin 4.2 gm/dL Albumin/Globulin Ratio 0.5 L (1.1-1.8) 05/08/16 05/08/16 05/08/16 Range/Units 13:20 11:19 08:30 WBC 18.0 H (4.5-11.0) 10^3/ul RBC 3.07 L (3.5-6.1) 10^6/uL Hgb 9.0 L (14.0-18.0) gm/dL Hct 27.9 L (42.0-52.0) % MCV 90.9 (80.0-105.0) fL MCH 29.3 (25.0-35.0) pg MCHC 32.3 (31.0-37.0) g/dl RDW 18.1 H (11.5-14.5) % Plt Count 141 (120.0-450.0) 10^3/uL MPV 11.9 H (7.0-11.0) fl Gran % (50.0-68.0) % Lymph % (Auto) (22.0-35.0) % Coleman % (Auto) (1.0-6.0) % Eos % (Auto) (1.5-5.0) % Baso % (Auto) (0.0-3.0) % Gran # (1.4-6.5) Lymph # (1.2-3.4) Coleman # (0.1-0.6) Eos # (0.0-0.7) Baso # (0.0-2.0) K/mm3 PT 11.4 (9.9-11.8) Seconds INR 1.06 (0.93-1.08) APTT 30.0 (23.7-30.8) Seconds pCO2 (35-45) mm/Hg pO2 (80-100) mm/Hg HCO3 (21-28) mmol/L ABG pH (7.35-7.45) ABG Total CO2 (22-28) mmol.L ABG O2 Saturation (95-98) % ABG O2 Content (15-23) ML/dl ABG Base Excess (-2.0-3.0) mmol/L ABG Hemoglobin (11.7-17.4) g/dL ABG Carboxyhemoglobin (0.5-1.5) % POC ABG HHb (Measured) (0-5) % ABG Methemoglobin (0.0-3.0) % ABG O2 Capacity (16-24) mL/dl Hgb O2 Saturation (95.0-98.0) % FiO2 % Sodium (132-148) mmol/L Potassium (3.6-5.0) mmol/L Chloride (98-107) mmol/L Carbon Dioxide (21-33) mmol/L Anion Gap (10-20) BUN (7-21) mg/dL Creatinine (0.5-1.4) mg/dL Est GFR ( Amer) Est GFR (Non-Af Amer) POC Glucose (mg/dL) 147 H (65-110) mg/dL Random Glucose (70-110) mg/dL Lactic Acid (0.7-2.1) mmol/L Calcium (8.4-10.5) mg/dL Total Bilirubin (0.2-1.3) mg/dL AST (15-59) U/L ALT (7-56) U/L Alkaline Phosphatase (38-133) U/L Total Creatine Kinase (35-230) U/L Troponin I ng/mL NT-Pro-B Natriuret Pep 692 H (0-450) pg/mL Total Protein (5.8-8.3) g/dL Albumin (3.0-4.8) g/dL Globulin gm/dL Albumin/Globulin Ratio (1.1-1.8) 05/08/16 05/08/16 05/08/16 Range/Units 08:00 07:19 06:00 WBC (4.5-11.0) 10^3/ul RBC (3.5-6.1) 10^6/uL Hgb (14.0-18.0) gm/dL Hct (42.0-52.0) % MCV (80.0-105.0) fL MCH (25.0-35.0) pg MCHC (31.0-37.0) g/dl RDW (11.5-14.5) % Plt Count (120.0-450.0) 10^3/uL MPV (7.0-11.0) fl Gran % (50.0-68.0) % Lymph % (Auto) (22.0-35.0) % Coleman % (Auto) (1.0-6.0) % Eos % (Auto) (1.5-5.0) % Baso % (Auto) (0.0-3.0) % Gran # (1.4-6.5) Lymph # (1.2-3.4) Coleman # (0.1-0.6) Eos # (0.0-0.7) Baso # (0.0-2.0) K/mm3 PT (9.9-11.8) Seconds INR (0.93-1.08) APTT (23.7-30.8) Seconds pCO2 46 H (35-45) mm/Hg pO2 88.0 (80-100) mm/Hg HCO3 18.0 L (21-28) mmol/L ABG pH 7.20 L (7.35-7.45) ABG Total CO2 19.4 L (22-28) mmol.L ABG O2 Saturation 97.5 (95-98) % ABG O2 Content 12.0 L (15-23) ML/dl ABG Base Excess -9.5 L (-2.0-3.0) mmol/L ABG Hemoglobin 8.9 L (11.7-17.4) g/dL ABG Carboxyhemoglobin 2.0 H (0.5-1.5) % POC ABG HHb (Measured) 2.4 (0-5) % ABG Methemoglobin 0.9 (0.0-3.0) % ABG O2 Capacity 12.3 L (16-24) mL/dl Hgb O2 Saturation 94.7 L (95.0-98.0) % FiO2 50.0 % Sodium (132-148) mmol/L Potassium (3.6-5.0) mmol/L Chloride (98-107) mmol/L Carbon Dioxide (21-33) mmol/L Anion Gap (10-20) BUN (7-21) mg/dL Creatinine (0.5-1.4) mg/dL Est GFR ( Amer) Est GFR (Non-Af Amer) POC Glucose (mg/dL) 139 H (65-110) mg/dL Random Glucose (70-110) mg/dL Lactic Acid (0.7-2.1) mmol/L Calcium (8.4-10.5) mg/dL Total Bilirubin (0.2-1.3) mg/dL AST (15-59) U/L ALT (7-56) U/L Alkaline Phosphatase (38-133) U/L Total Creatine Kinase (35-230) U/L Troponin I 0.01 D ng/mL NT-Pro-B Natriuret Pep (0-450) pg/mL Total Protein (5.8-8.3) g/dL Albumin (3.0-4.8) g/dL Globulin gm/dL Albumin/Globulin Ratio (1.1-1.8) 03/07/17 03/06/17 03/06/17 Range/Units 05:30 20:20 20:10 WBC 17.0 H (4.5-11.0) 10^3/ul RBC 2.97 L (3.5-6.1) 10^6/uL Hgb 8.7 L (14.0-18.0) gm/dL Hct 27.0 L (42.0-52.0) % MCV 90.9 (80.0-105.0) fL MCH 29.3 (25.0-35.0) pg MCHC 32.2 (31.0-37.0) g/dl RDW 18.1 H (11.5-14.5) % Plt Count 122 (120.0-450.0) 10^3/uL MPV 11.4 H (7.0-11.0) fl Gran % (50.0-68.0) % Lymph % (Auto) (22.0-35.0) % Coleman % (Auto) (1.0-6.0) % Eos % (Auto) (1.5-5.0) % Baso % (Auto) (0.0-3.0) % Gran # (1.4-6.5) Lymph # (1.2-3.4) Coleman # (0.1-0.6) Eos # (0.0-0.7) Baso # (0.0-2.0) K/mm3 PT (9.9-11.8) Seconds INR (0.93-1.08) APTT (23.7-30.8) Seconds pCO2 (35-45) mm/Hg pO2 (80-100) mm/Hg HCO3 (21-28) mmol/L ABG pH (7.35-7.45) ABG Total CO2 (22-28) mmol.L ABG O2 Saturation (95-98) % ABG O2 Content (15-23) ML/dl ABG Base Excess (-2.0-3.0) mmol/L ABG Hemoglobin (11.7-17.4) g/dL ABG Carboxyhemoglobin (0.5-1.5) % POC ABG HHb (Measured) (0-5) % ABG Methemoglobin (0.0-3.0) % ABG O2 Capacity (16-24) mL/dl Hgb O2 Saturation (95.0-98.0) % FiO2 % Sodium 143 (132-148) mmol/L Potassium 6.3 H* D (3.6-5.0) mmol/L Chloride 110 (98-107) mmol/L Carbon Dioxide 21 (21-33) mmol/L Anion Gap 18 (10-20) BUN 102 H (7-21) mg/dL Creatinine 4.0 H (0.5-1.4) mg/dL Est GFR ( Amer) 18 Est GFR (Non-Af Amer) 15 POC Glucose (mg/dL) 112 H (65-110) mg/dL Random Glucose 166 H (70-110) mg/dL Lactic Acid (0.7-2.1) mmol/L Calcium 7.6 L (8.4-10.5) mg/dL Total Bilirubin 0.5 (0.2-1.3) mg/dL AST 22 (15-59) U/L ALT 22 (7-56) U/L Alkaline Phosphatase 212 H (38-133) U/L Total Creatine Kinase 28 L (35-230) U/L Troponin I ng/mL NT-Pro-B Natriuret Pep (0-450) pg/mL Total Protein 6.8 (5.8-8.3) g/dL Albumin 2.3 L (3.0-4.8) g/dL Globulin 4.4 gm/dL Albumin/Globulin Ratio 0.5 L (1.1-1.8) Laboratory Results - last 24 hr 05/07/16 05/07/16 05/08/16 20:10 20:20 05:30 WBC 17.0 H RBC 2.97 L Hgb 8.7 L Hct 27.0 L MCV 90.9 MCH 29.3 MCHC 32.2 RDW 18.1 H Plt Count 122 MPV 11.4 H Gran % Lymph % (Auto) Coleman % (Auto) Eos % (Auto) Baso % (Auto) Gran # Lymph # Coleman # Eos # Baso # PT INR APTT pCO2 pO2 HCO3 ABG pH ABG Total CO2 ABG O2 Saturation ABG O2 Content ABG Base Excess ABG Hemoglobin ABG Carboxyhemoglobin POC ABG HHb (Measured) ABG Methemoglobin ABG O2 Capacity Hgb O2 Saturation FiO2 Sodium 143 Potassium 6.3 H* D Chloride 110 Carbon Dioxide 21 Anion Gap 18 BUN 102 H Creatinine 4.0 H Est GFR ( Amer) 18 Est GFR (Non-Af Amer) 15 POC Glucose (mg/dL) 112 H Random Glucose 166 H Lactic Acid Calcium 7.6 L Total Bilirubin 0.5 AST 22 ALT 22 Alkaline Phosphatase 212 H Total Creatine Kinase 28 L Troponin I NT-Pro-B Natriuret Pep Total Protein 6.8 Albumin 2.3 L Globulin 4.4 Albumin/Globulin Ratio 0.5 L 05/08/16 05/08/16 05/08/16 06:00 07:19 08:00 WBC RBC Hgb Hct MCV MCH MCHC RDW Plt Count MPV Gran % Lymph % (Auto) Coleman % (Auto) Eos % (Auto) Baso % (Auto) Gran # Lymph # Coleman # Eos # Baso # PT INR APTT pCO2 46 H pO2 88.0 HCO3 18.0 L ABG pH 7.20 L ABG Total CO2 19.4 L ABG O2 Saturation 97.5 ABG O2 Content 12.0 L ABG Base Excess -9.5 L ABG Hemoglobin 8.9 L ABG Carboxyhemoglobin 2.0 H POC ABG HHb (Measured) 2.4 ABG Methemoglobin 0.9 ABG O2 Capacity 12.3 L Hgb O2 Saturation 94.7 L FiO2 50.0 Sodium Potassium Chloride Carbon Dioxide Anion Gap BUN Creatinine Est GFR ( Amer) Est GFR (Non-Af Amer) POC Glucose (mg/dL) 139 H Random Glucose Lactic Acid Calcium Total Bilirubin AST ALT Alkaline Phosphatase Total Creatine Kinase Troponin I 0.01 D NT-Pro-B Natriuret Pep Total Protein Albumin Globulin Albumin/Globulin Ratio 05/08/16 05/08/16 05/08/16 08:30 11:19 13:20 WBC 18.0 H RBC 3.07 L Hgb 9.0 L Hct 27.9 L MCV 90.9 MCH 29.3 MCHC 32.3 RDW 18.1 H Plt Count 141 MPV 11.9 H Gran % Lymph % (Auto) Coleman % (Auto) Eos % (Auto) Baso % (Auto) Gran # Lymph # Coleman # Eos # Baso # PT 11.4 INR 1.06 APTT 30.0 pCO2 pO2 HCO3 ABG pH ABG Total CO2 ABG O2 Saturation ABG O2 Content ABG Base Excess ABG Hemoglobin ABG Carboxyhemoglobin POC ABG HHb (Measured) ABG Methemoglobin ABG O2 Capacity Hgb O2 Saturation FiO2 Sodium Potassium Chloride Carbon Dioxide Anion Gap BUN Creatinine Est GFR ( Amer) Est GFR (Non-Af Amer) POC Glucose (mg/dL) 147 H Random Glucose Lactic Acid Calcium Total Bilirubin AST ALT Alkaline Phosphatase Total Creatine Kinase Troponin I NT-Pro-B Natriuret Pep 692 H Total Protein Albumin Globulin Albumin/Globulin Ratio 05/08/16 05/08/16 05/08/16 16:08 16:43 17:17 WBC 9.7 D RBC 2.86 L Hgb 8.2 L Hct 25.9 L MCV 90.6 MCH 28.7 MCHC 31.7 RDW 17.9 H Plt Count 97 L MPV 10.9 Gran % 88.1 H Lymph % (Auto) 7.0 L Coleman % (Auto) 4.9 Eos % (Auto) 0.0 L Baso % (Auto) 0.0 Gran # 8.52 H Lymph # 0.7 L Coleman # 0.5 Eos # 0.0 Baso # 0.00 PT INR APTT pCO2 41 pO2 160.0 H HCO3 18.4 L ABG pH 7.26 L ABG Total CO2 19.7 L ABG O2 Saturation 99.5 H ABG O2 Content 12.0 L ABG Base Excess -8.1 L ABG Hemoglobin 8.5 L ABG Carboxyhemoglobin 1.6 H POC ABG HHb (Measured) 0.5 ABG Methemoglobin 1.1 ABG O2 Capacity 12.1 L Hgb O2 Saturation 96.9 FiO2 60.0 Sodium 144 Potassium 5.9 H* Chloride 112 H Carbon Dioxide 21 Anion Gap 17 BUN 110 H Creatinine 4.1 H Est GFR ( Amer) 18 Est GFR (Non-Af Amer) 15 POC Glucose (mg/dL) 133 H Random Glucose 127 H Lactic Acid 1.1 Calcium 7.0 L Total Bilirubin 0.5 AST 24 ALT 22 Alkaline Phosphatase 192 H Total Creatine Kinase Troponin I NT-Pro-B Natriuret Pep Total Protein 6.5 Albumin 2.2 L Globulin 4.2 Albumin/Globulin Ratio 0.5 L EKG/Cardiology Studies: Cardiology / EKG Studies 05/08/16 06:16 EKG [ELECTROCARDIOGRAM] Stat Comment: Reason For Exam: hyperkalemia 6.3 05/08/16 08:00 EKG [ELECTROCARDIOGRAM] Stat Comment: Reason For Exam: RAPID RESPONSE PRE OP:: N Does Patient Have a Pacemaker?: No Critical Care Progress Note - Nutrition Nutrition: Nutrition Category Date Time Status NPO Diet [DIET] Diets 05/08/16 Dinner Ordered Attending/Attestation - Attestation I have personally seen and examined this patient.: Yes I have fully participated in the care of the patient.: Yes I have reviewed all pertinent clinical information: Yes Notes (Text): 05/08/16 17:42 65 y/o M known to us from previous ICU stay. Earlier today was found to be more SOb than prior days , but upon reviewing records his SOb has been worsening for 2 days Rapid Response was called and patient was found to be sob, hypoxic with increased WOB. Diuresis was started and BIPAP as well. Upon meeting the patient he as seen to be fairly difficult to arrouse on BIPAP and not moving much air on asculation. Emergently was intubated and started on ac/vc Found to have worsening renal function in the past 3 days with decreased urine out put. Does have a recent hx of Pyelonephritis / uti on abx . CT abd yesterday found continued perineprhic stranding. Awaiting urology consult. PCP aware. Continued on abx and lu in place, monitoring urine output despite the increased creatnine ABG PH>7.3 MAP>65 Mental status alert, precedex can be used for sedation if needed. Continue diuresis, cxr images viewed by me, shows increased pulmonary vascular congestion. Lu is now corrected, no longer in the prostatic urethra. pancreatic ca, remote bladder ca, Dr Atkinson following, should be alerted. Poor prognosis cc time 72 min
--- NOTE | 2016-05-08 16:33 | CP.PCM.PN ---
Subjective - Date & Time of Evaluation Date of Evaluation: 05/08/16 Time of Evaluation: 09:20 - Subjective Subjective: Noted events overnight that the patient became hypoxic and needs to be on the BiPAP. He is to be transferred to ICU today for closer monitoring. Objective - Vital Signs/Intake and Output Vital Signs (last 24 hours): Temp Pulse Resp BP Pulse Ox 98.7 F 111 H 24 127/66 96 05/08/16 08:19 05/08/16 08:19 05/08/16 08:19 05/08/16 08:19 05/08/16 08:19 Intake and Output: 05/08/16 05/08/16 06:59 18:59 Intake Total 330 0 Output Total 300 0 Balance 30 0 - Medications Medications: Current Medications Albuterol/Ipratropium (Duoneb 3 Mg/0.5 Mg (3 Ml) Ud) 3 ml IH [id number] PRN PRN Reason: Cough and congestion Last Admin: 05/07/16 21:45 Dose: 3 ml Arformoterol Tartrate (Brovana) 15 mcg IH [id number] WIL Last Admin: 05/08/16 08:40 Dose: 15 mcg Budesonide (Pulmicort Respules) 0.5 mg IH [id number] WIL Last Admin: 05/08/16 08:40 Dose: 0.5 mg Chlordiazepoxide (Librium) 25 mg PO Q8 PRN; Protocol PRN Reason: Agitation Last Admin: 05/06/16 05:15 Dose: 25 mg Meropenem 1 gm/ Sodium (Chloride) 100 mls @ 100 mls/hr IVPB Q12 WIL PRN Reason: Protocol Stop: 05/14/16 11:31 Last Admin: 05/07/16 22:14 Dose: 100 mls/hr Famotidine (Pepcid 20mg/50ml Premix) 50 mls @ 100 mls/hr IVPB Q12 WIL Last Admin: 05/07/16 22:16 Dose: 100 mls/hr Amino Acids (Clinimix 5/20 % (1000 Ml)) 1,000 mls @ 30 mls/hr IV .Q24H WIL Stop: 05/10/16 18:01 Insulin Human Lispro (Humalog Low) 0 units SC ACHS WIL PRN Reason: Protocol Last Admin: 05/07/16 22:46 Dose: Not Given Levalbuterol HCl (Xopenex) 1.25 mg IH TIDRESP [facility] Last Admin: 05/08/16 08:40 Dose: 1.25 mg Morphine Sulfate (Morphine) 1 mg IVP Q4H PRN PRN Reason: Pain, moderate (4-7) Oxycodone/Acetaminophen (Percocet 5/325 Mg Tab) 1 tab PO Q4H PRN PRN Reason: Pain, moderate (4-7) Stop: 05/09/16 04:29 Last Admin: 05/06/16 05:15 Dose: 1 tab Saliva Substitute (Saliva Substitute) 0 ml PO 5XD PRN PRN Reason: DRY MOUTH Vancomycin HCl (Vancocin 25 Mg/Ml (Oral Use)) 125 mg PO QID WIL PRN Reason: Protocol Last Admin: 05/07/16 22:14 Dose: 125 mg - Labs Labs: 05/08/16 08:30 05/08/16 05:30 PT 14.4 Seconds (9.9-11.8) H 04/29/16 02:40 INR 1.33 (0.93-1.08) H 04/29/16 02:40 APTT 30.4 Seconds (23.7-30.8) 05/01/16 19:30 - Constitutional Appears: Other (On a BiPAP with some respiratory distress) - Head Exam Head Exam: NORMAL INSPECTION - Neck Exam Neck Exam: absent: Meningismus - Respiratory Exam Respiratory Exam: Decreased Breath Sounds - Cardiovascular Exam Cardiovascular Exam: +S1, +S2 - GI/Abdominal Exam GI & Abdominal Exam: Soft. absent: Tenderness Assessment and Plan - Assessment and Plan (Free Text) Plan: Assessment Severe sepsis with acute renal failure secondary to Klebsiella pneumoniae bacteremia probably from severe cystitis and pyelonephritis, R/O port infection ; also with C diff associated diarrhea, slowly improving; also now with Micrococcus species in the 05/04/2016 blood cx from the port, which is a contaminant (unlike other coagulase negative staph); now has hypoxic respiratory failure acute anemia Pancreatic cancer S/P chemotherapy and radiation therapy and surgery HTN DM obesity with BMI 34 Plan continue Meropenem (05/01 cx are still positive but the 05/04 cx are negative x 3 days); CT Abdomen and pelvis reviewed; continue PO Vancomycin (day 7); will repeat 2D echo tomorrow Follow up Urology evaluation would consider removal of the port because of the persistent Klebsiella bacteremia Will continue to follow clinically Overall prognosis is poor
--- NOTE | 2016-05-08 17:09 | CARD ---
APPROVED REPORT EKG Measurement Heart [id number] <Conclusion> Sinus tachycardia Cannot rule out Anterior infarct, age undetermined Abnormal ECG
--- NOTE | 2016-05-08 17:12 | CARD ---
APPROVED REPORT EKG Measurement Heart [id number] <Conclusion> Sinus tachycardia Cannot rule out Inferior infarct, age undetermined Abnormal ECG
[2016-05-08 17:17] LABS: ADD MANUAL DIFF? NO
[2016-05-08 17:20] LABS: GRAN # 8.52 (1.4-6.5); GRAN % 88.1 % (50.0-68.0); HEMATOCRIT 25.9 % (42.0-52.0); LYMPH # 0.7 (1.2-3.4); MEAN CELL VOLUME 90.6 fL (80.0-105.0); MEAN CORPUSCULAR HEMOGLOBIN 28.7 pg (25.0-35.0); MEAN CORPUSCULAR HGB CONC 31.7 g/dl (31.0-37.0); MEAN PLATELET VOLUME 10.9 fl (7.0-11.0); MONO # 0.5 (0.1-0.6); MONO % 4.9 % (1.0-6.0); PLATELET COUNT 97 10^3/uL (120.0-450.0); RED CELL DISTRIBUTION WIDTH 17.9 % (11.5-14.5); WHITE BLOOD COUNT 9.7 10^3/ul (4.5-11.0)
[2016-05-08 17:32] LABS: ALB/GLOB RATIO 0.5 (1.1-1.8); BILIRUBIN,TOTAL 0.5 mg/dL (0.2-1.3); TOTAL PROTEIN 6.5 g/dL (5.8-8.3)
[2016-05-08 17:39] LABS: POTASSIUM 5.9 mmol/L (3.6-5.0)
[2016-05-08] MEDS ORDERED: Amino/Dext 5/20 1,000 ML IV SCH (18:00)
[2016-05-08] MEDS ORDERED: Insulin Regular 1 UNITS/0.01 ML ML IV ONE (21:49)
[2016-05-08] MEDS ORDERED: Sod Polystyrene Sulf 15 gm/60 ml Oral Susp PO ONE (21:49)
[2016-05-08] MEDS: Dexmedetomidine HCl 4mcg/ml 100 ML IV PRN (22:30)
[2016-05-09] MEDS ORDERED: Insulin Regular 1 UNITS/0.01 ML ML IV ONE (00:15)
[2016-05-09] MEDS: Vancomycin 25 MG/ML PO SCH ×5 (00:26→22:10)
[2016-05-09] MEDS: Dexmedetomidine HCl 4mcg/ml 100 ML IV PRN ×2 (04:47→14:00)
[2016-05-09 05:50] LABS: HEMATOCRIT 24.5 % (42.0-52.0); MEAN CELL VOLUME 89.4 fL (80.0-105.0); MEAN CORPUSCULAR HEMOGLOBIN 28.8 pg (25.0-35.0); MEAN CORPUSCULAR HGB CONC 32.2 g/dl (31.0-37.0); MEAN PLATELET VOLUME 11.6 fl (7.0-11.0); RED CELL DISTRIBUTION WIDTH 17.9 % (11.5-14.5); WHITE BLOOD COUNT 5.8 10^3/ul (4.5-11.0)
[2016-05-09 05:58] LABS: ALB/GLOB RATIO 0.5 (1.1-1.8); BILIRUBIN,TOTAL 0.5 mg/dL (0.2-1.3); TOTAL PROTEIN 6.4 g/dL (5.8-8.3)
[2016-05-09 07:02] LABS: ARTERIAL BLOOD GAS HCO3 15.3 mmol/L (21-28); ARTERIAL BLOOD GAS O2 CAPACITY 11.9 mL/dl (16-24); ARTERIAL BLOOD GAS O2 CONTENT 11.8 ML/dl (15-23); ARTERIAL BLOOD HGB O2 SAT 96.6 % (95.0-98.0); CARBOXYHEMOGLOBIN 1.4 % (0.5-1.5); HHB 0.7 % (0-5); METHEMOGLOBIN 1.3 % (0.0-3.0)
[2016-05-09] MEDS ORDERED: Sodium Chloride 0.9% 1,000 ML IV STA ×3 (07:10→18:32)
[2016-05-09 07:21] LABS: CALCIUM 6.1 mg/dL (8.4-10.5); POTASSIUM 6.1 mmol/L (3.6-5.0)
[2016-05-09] MEDS ORDERED: Sod Polystyrene Sulf 15 gm/60 ml Oral Susp PO ONE (07:24)
[2016-05-09] MEDS ORDERED: Dextrose 50% SYRINGE Inj (50 ml) IVP ONE (07:26)
[2016-05-09] MEDS ORDERED: Albuterol 0.083% Inhal Sol (2.5 mg/3 mL) UD IH STA ×2 (07:28)
[2016-05-09] MEDS ORDERED: Insulin Regular 1 UNITS/0.01 ML ML IVP ONE (07:30)
[2016-05-09] MEDS: Levalbuterol 1.25 MG/3 ML Inhal Soln UD IH SCH ×3 (07:47→20:02)
[2016-05-09] MEDS: Budesonide 0.5 mg/2 ml Inhal Susp UD IH SCH ×2 (07:48→20:02)
[2016-05-09] MEDS: Insulin Lispro (humaLOG) LOW Coverage SC SCH ×4 (08:00→22:08)
--- NOTE | 2016-05-09 08:05 | RAD ---
HISTORY: OG tube placement COMPARISON: 05/08/2016 at 9:57 p.m. FINDINGS: LUNGS: Right basilar opacity, medially. Possible infiltrate versus atelectasis. No change from earlier examination. Questionable up the left lung base peer PLEURA: Hazy opacity obscures left costophrenic angle which may reflect small pleural effusion. Right costophrenic angle is clear. No pneumothorax. CARDIOVASCULAR: Eyes. Nasogastric tube extends to upper abdomen. Right internal jugular central venous catheter terminates approximately at the cavoatrial junction. OSSEOUS STRUCTURES: No significant abnormalities. VISUALIZED UPPER ABDOMEN: Normal. OTHER FINDINGS: None. IMPRESSION: Stable opacity medial right lung base. Questionable opacity medial left lung base. Probable small left pleural effusion. Lines and tubes unchanged.
--- NOTE | 2016-05-09 08:08 | RAD ---
HISTORY: placement OG tube COMPARISON: 05/08/2016 at 1:38 p.m. FINDINGS: LUNGS: Opacity at medial right lung base, unchanged. Opacity at left lung base not evident on current examination. PLEURA: No significant pleural effusion identified, no pneumothorax apparent. CARDIOVASCULAR: Normal heart size. New orogastric extends to left side of abdomen. Endotracheal tube unchanged in position, situated well above tracheal corinne. Right internal jugular central venous catheter in superior vena cava. OSSEOUS STRUCTURES: No significant abnormalities. VISUALIZED UPPER ABDOMEN: Normal. OTHER FINDINGS: None. IMPRESSION: Orogastric tube appropriately positioned. ET tube and right IJ central venous catheter unchanged. Persistent opacity at medial right lung base.
--- NOTE | 2016-05-09 08:41 | RAD ---
HISTORY: intubated COMPARISON: 05/08/2016 11:34 p.m. FINDINGS: LUNGS: Stent PLEURA: Mild blunting of left costophrenic angle may reflect small pleural effusion. Right costophrenic angle clear. CARDIOVASCULAR: ET tube, orogastric tube and right internal jugular central venous catheter unchanged. OSSEOUS STRUCTURES: No significant abnormalities. VISUALIZED UPPER ABDOMEN: Normal. OTHER FINDINGS: None. IMPRESSION: Persistent opacity medial right lung base. Lines and tubes unchanged. Possible small left pleural effusion.
--- NOTE | 2016-05-09 09:01 | CP.PCM.PN ---
Subjective - Date & Time of Evaluation Date of Evaluation: 05/09/16 Time of Evaluation: 08:20 - Subjective Subjective: Patient is now intubated, sedated, no fevers currently. Objective - Vital Signs/Intake and Output Vital Signs (last 24 hours): Temp Pulse Resp BP Pulse Ox 97.5 F L 73 20 101/51 L 100 05/09/16 04:00 05/09/16 05:30 05/08/16 16:51 05/09/16 05:30 05/09/16 05:30 Intake and Output: 05/09/16 05/09/16 06:59 18:59 Intake Total 485 Output Total 10 Balance 475 - Medications Medications: Current Medications Albuterol/Ipratropium (Duoneb 3 Mg/0.5 Mg (3 Ml) Ud) 3 ml IH [id number] PRN PRN Reason: Shortness Of Breath Budesonide (Pulmicort Respules) 0.5 mg IH [id number] WIL Last Admin: 05/09/16 07:48 Dose: 0.5 mg Chlordiazepoxide (Librium) 25 mg PO Q8 PRN; Protocol PRN Reason: Agitation Last Admin: 05/06/16 05:15 Dose: 25 mg Meropenem 1 gm/ Sodium (Chloride) 100 mls @ 100 mls/hr IVPB Q12 WIL PRN Reason: Protocol Stop: 05/14/16 11:31 Last Admin: 05/08/16 22:39 Dose: 100 mls/hr Famotidine (Pepcid 20mg/50ml Premix) 50 mls @ 100 mls/hr IVPB Q12 WIL Last Admin: 05/08/16 22:35 Dose: 100 mls/hr Dexmedetomidine HCl (Precedex 4 Mcg/Ml (100 Ml)) 100 mls @ 5.96 mls/hr IV [id number] PRN; Protocol; 0.2 MCG/KG/HR PRN Reason: Agitation Last Admin: 05/09/16 04:47 Dose: 14.901 mls/hr Calcium Gluconate 1,000 mg/ (Sodium Chloride) 110 mls @ 110 mls/hr IVPB ONCE ONE Stop: 05/09/16 08:59 Insulin Human Lispro (Humalog Low) 0 units SC ACHS [facility] PRN Reason: Protocol Last Admin: 05/08/16 22:33 Dose: Not Given Levalbuterol HCl (Xopenex) 1.25 mg IH TIDRESP [facility] Last Admin: 05/09/16 07:47 Dose: 1.25 mg Morphine Sulfate (Morphine) 1 mg IVP Q4H PRN PRN Reason: Pain, moderate (4-7) Saliva Substitute (Saliva Substitute) 0 ml PO 5XD PRN PRN Reason: DRY MOUTH Vancomycin HCl (Vancocin 25 Mg/Ml (Oral Use)) 125 mg PO QID WIL PRN Reason: Protocol Last Admin: 05/09/16 00:26 Dose: 125 mg - Labs Labs: 05/09/16 05:00 05/09/16 05:00 PT 11.4 Seconds (9.9-11.8) 05/08/16 08:30 INR 1.06 (0.93-1.08) 05/08/16 08:30 APTT 30.0 Seconds (23.7-30.8) 05/08/16 08:30 - Constitutional Appears: Other (Intubated and sedated) - Head Exam Head Exam: NORMAL INSPECTION - ENT Exam Additional comments: ET tube in place - Neck Exam Neck Exam: absent: Lymphadenopathy, Meningismus - Respiratory Exam Respiratory Exam: Decreased Breath Sounds - Cardiovascular Exam Cardiovascular Exam: +S1, +S2 - GI/Abdominal Exam GI & Abdominal Exam: Distended, Soft. absent: Tenderness Assessment and Plan - Assessment and Plan (Free Text) Plan: Assessment Severe sepsis with acute renal failure and ventilator-dependent respiratory failure probably secondary to Klebsiella pneumoniae bacteremia probably from severe cystitis and pyelonephritis, R/O port infection, R/O abdominal compartment syndrome; also with C diff associated diarrhea, slowly improving; also now with Micrococcus species in the 05/04/2016 blood cx from the port, which is a contaminant (unlike other coagulase negative staph) acute anemia Pancreatic cancer S/P chemotherapy and radiation therapy and surgery HTN DM obesity with BMI 34 Plan continue Meropenem (05/01 cx are still positive but the 05/04 cx are negative x 3 days); CT Abdomen and pelvis reviewed; continue PO Vancomycin (day 8); will follow up results of 2D echo repeated 05/07/2016; will repeat blood cx today Discussed with Dr. Jeffrey (ICU physician) - patient may have compartment syndrome and will need paracentesis - will await results of the paracentesis and ascitic fluid analysis would consider removal of the port because of the persistent Klebsiella bacteremia Will continue to follow clinically Overall prognosis is poor
--- NOTE | 2016-05-09 09:47 | PN ---
DATE: 05/09/2016(630am--715am) SUBJECTIVE: The patient is currently on the ventilator and sedated (discussed with nurse). PHYSICAL EXAMINATION: VITAL SIGNS: Temperature is 97.5, pulse 73, respirations 20/20, blood pressure 101/51. HEENT: Normocephalic, atraumatic. NECK: No JVD. CARDIOVASCULAR: Systolic ejection murmur at the lower left sternal border. Questionable S3 gallop. LUNGS: Decreased breath sounds with minimal crackles at the bases. Minimal rhonchi. No wheezing. EXTREMITIES: Mild edema. No cyanosis, no clubbing. GASTROINTESTINAL: Abdomen is soft, nondistended. Bowel sounds are positive. SKIN: No acute rash. NEUROLOGIC: Limited at the present time. PERTINENT LABORATORY DATA: Chest x-ray was done late last night and reviewed. There are minimal markings at the lung bases consistent with basal atelectasis. The arterial blood gas is pending. CBC: White count 5.8, hemoglobin 7.9, hematocrit 24.5, platelets of 87,000. IMPRESSION: 1. Respiratory failure. 2. Klebsiella sepsis. 3. Severe cystitis. 4. Severe anemia. 5. Advanced pancreatic cancer. +ascites. 6. Bladder cancer. 7. Worsening renal dysfunction. PLAN: I did discuss the case with the night nurse at length. I have also reviewed the chart at length. The patient is currently sedated and intubated. Apparently, the patient was transferred to the medical ICU yesterday for increasing shortness of breath. BiPAP was temporarily tried but was unsuccessful. The patient was subsequently intubated and is now on mechanical ventilation. I did review the last chest x-ray done. The last x-ray shows only minimal basilar changes. I would continue with the antibiotic coverage as per infectious disease. Input by Dr. Erickson is noted. The leukocytosis has completely resolved. I would continue with the cardiology evaluation as per Dr. Rogel. His input is noted. The patient was given several doses of Lasix yesterday (discussed with nurse). On physical exam, there is no significant bronchospasm noted. I will continue with the current nebulizer treatments and inhaled steroids for now. As above, a repeat arterial blood gas has been ordered and will be followed when feasible. Incidentally, the patient did have a ventilation perfusion scan done on 05/07/2016. That scan was low probability for pulmonary embolism. In addition, the patient also had leg studies done. There is no sonographic evidence of deep venous thrombosis. The patient is critically ill at the present time, with overall poor prognosis. I will discuss the above with the entire ICU team within next few moments. I will also discuss the above with Dr. Dorsey later this morning. Kenroy Lino MD cc: [phone] TT: 05/09/2016 09:46:03 Confirmation # [id number] Dictation # [id number] jn MTDD
--- NOTE | 2016-05-09 10:18 | PN ---
DATE: 05/09/2016 He had 2 rapid responses in the morning is back to back. I called in the intensive care unit and take him in the intensive care unit, I am seeing him here. He is on the ventilator now with respiratory failure. He was intubated and he is sedated. He has had so many problems were to start. He is now sort of stable on the ventilator. MEDICATIONS: He is on DuoNeb, insulin coverage, Librium, Merrem IV, morphine for pain, Pepcid, Precedex, Pulmicort, saliva, vancomycin, Xopenex. He has consults from pulmonary, cardio, renal, oncology, infectious disease, GI. Also, the mandate retail service merchandiser was critical care physician. He is not sick, he has pancreatic cancer. He had chemoradiation that kind put him in this situation might have been too much in the outpatient respiratory failure on the ventilator , renal insufficiency, sepsis, anemia. He might need to be transfused again. We will keep an eye on the level acute respiratory distress, change in mentation , diabetes, pyelonephritis, cystitis, emphysema, anasarca and ascites. PHYSICAL EXAMINATION: VITAL SIGNS: He has a 97.5 temp now, 73 pulse, 101/51 blood pressure, 100% O2 sat on 60% on ventilator. HEENT: His head is atraumatic, normocephalic. HEART: Regular rate. LUNGS: Decreased breath sounds but clear on the ventilator. ABDOMEN: Soft, obese, nontender, mild ascites at this time. We did a bladder scan he is 56 mL only in the urinary bladder. EXTREMITIES: Trace edema. LABORATORY DATA: He has a 5.8 white count, much better than it was as high as 20. He has 7.9 hemoglobin still lower I will transfuse him 24.5 hemoglobin and 87 platelets, which is pretty good for him , he has been as low as 7. INR is 1.06. He has 144 sodium, potassium is 5.9. Kayexalate was given. BUN 110, creatinine 4.1, absolute acute renal insufficiency versus failure, but sugar is 98, calcium 7, total bili is 0.5, AST is 24, ALT is 22, alk phos 192, total protein 6.5. He has got multiple issues multiple problems. Positive occult blood and GI is on the case. We will continue with aggressive treatment and care. I understand the wants him to have vitamin C infusion. I did call the oncologist and I did call the pharmacy is here in the hospital as an outpatient medication, I cannot do that here at this time, I do not think at this time and his that would help. Due to many more severe issues that we are trying to attend to my hope is that he responds to the treatment. He is so severe he might not responding and he could . He is in very poor prognosis. I will check his labs tomorrow. Continue with aggressive treatment and care.Wifw wants him to have A B12 SHOT AND VITAMIN C INFUSION. Melquiades Dorsey DO cc: [id number] TT: 05/09/2016 10:17:07 Confirmation # [id number] Dictation # [id number] tn MTDD
[2016-05-09] MEDS ORDERED: Sodium Chloride 0.9% 500 ML IV STA (10:37)
[2016-05-09] MEDS: Famotidine 20mg/50ml 50 ML IVPB SCH ×2 (11:06→22:14)
[2016-05-09] MEDS: Meropenem 1 GM in Sodium Chloride 0.9% 100 ML IVPB SCH ×2 (11:07→22:15)
--- NOTE | 2016-05-09 11:21 | US ---
HISTORY: Possible paracentesis COMPARISON: None. TECHNIQUE: Sonographic evaluation of the abdomen. FINDINGS: LIVER: Measures 20.9 cm. Diffusely increased echogenicity of the liver parenchyma. Consistent fatty infiltration. No mass. No biliary ductal dilatation. GALLBLADDER: Not visualized this examination. Possibly contracted. COMMON BILE DUCT: Measures 5 mm. No stones. No dilatation. PANCREAS: Could not be visualized due to extensive bowel gas. RIGHT KIDNEY: Measures 13.7cm. Normal echogenicity. No calculus, mass, or hydronephrosis. LEFT KIDNEY: Measures 13.8cm. Normal echogenicity. No calculus, mass, or hydronephrosis. SPLEEN: 13.6 cm greatest dimension. Mild splenomegaly. No focal mass. AORTA: No aneurysmal dilatation. IVC: Unremarkable. OTHER FINDINGS: Extensive ascites. IMPRESSION: Extensive ascites. Hepatosplenomegaly. Gallbladder not visualized. Pancreas could not be evaluated due to overlying bowel gas.
--- NOTE | 2016-05-09 11:24 | CARD ---
APPROVED REPORT EKG Measurement Heart [id number] <Conclusion> Sinus tachycardia Anterior infarct, age undetermined Abnormal ECG
--- NOTE | 2016-05-09 11:53 | PN ---
DATE: 05/09/2016 The patient remains on a ventilator. PHYSICAL EXAMINATION: VITAL SIGNS: Blood pressure is 100 systolic, the heart rate is in the 70s. NECK: Negative JVD. LUNGS: Without rales. HEART: Reveals S1, S2. EXTREMITIES: Without edema. LABORATORIES: The hemoglobin is 7.9. The white count is 5.8. Chemistries: The BUN and creatinine are 121 and 4.6. IMPRESSION: 1. Respiratory failure. 2. History of pancreatic cancer. 3. Altered mental status. 4. Diabetes mellitus. 5. Renal insufficiency. PLAN: Given these findings, we will continue the patient on Lasix today. Bronchodilators have been ordered. There is no evidence for pulmonary embolism. Horacio Rogel MD cc: [id number] TT: 05/09/2016 11:52:31 Confirmation # [id number] Dictation # [id number]
--- NOTE | 2016-05-09 11:55 | CP.PCM.PN ---
<Scott Fraser - Last Filed: 05/09/16 11:51> Subjective - Date & Time of Evaluation Date of Evaluation: 05/09/16 Time of Evaluation: 11:52 - Subjective Subjective: Medicine PGY1 - GI service Patient seen and examined at bedside this morning. No acute events overnight. Patient intubated with minimal sedation on examination, was able to communicate by nodding yes/no to questioning. Denied chest pain, abdominal pain. Minimal urine output per nursing. 12 point ROS as per above otherwise negative. Objective - Vital Signs/Intake and Output Vital Signs (last 24 hours): Temp Pulse Resp BP Pulse Ox 97.5 F L 73 21 101/51 L 100 05/09/16 04:00 05/09/16 05:30 05/09/16 07:55 05/09/16 05:30 05/09/16 07:55 Intake and Output: 05/09/16 05/09/16 06:59 18:59 Intake Total 485 Output Total 10 Balance 475 - Medications Medications: Current Medications Albuterol/Ipratropium (Duoneb 3 Mg/0.5 Mg (3 Ml) Ud) 3 ml IH [id number] PRN PRN Reason: Shortness Of Breath Budesonide (Pulmicort Respules) 0.5 mg IH [id number] WIL Last Admin: 05/09/16 07:48 Dose: 0.5 mg Chlordiazepoxide (Librium) 25 mg PO Q8 PRN; Protocol PRN Reason: Agitation Last Admin: 05/06/16 05:15 Dose: 25 mg Meropenem 1 gm/ Sodium (Chloride) 100 mls @ 100 mls/hr IVPB Q12 WIL PRN Reason: Protocol Stop: 05/14/16 11:31 Last Admin: 05/09/16 11:07 Dose: 100 mls/hr Famotidine (Pepcid 20mg/50ml Premix) 50 mls @ 100 mls/hr IVPB Q12 WIL Last Admin: 05/09/16 11:06 Dose: 100 mls/hr Dexmedetomidine HCl (Precedex 4 Mcg/Ml (100 Ml)) 100 mls @ 5.96 mls/hr IV .[id number] PRN; Protocol; 0.2 MCG/KG/HR PRN Reason: Agitation Last Admin: 05/09/16 04:47 Dose: 14.901 mls/hr Insulin Human Lispro (Humalog Low) 0 units SC ACHS WIL PRN Reason: Protocol Last Admin: 05/09/16 11:32 Dose: 1 units Levalbuterol HCl (Xopenex) 1.25 mg IH TIDRESP [facility] Last Admin: 05/09/16 07:47 Dose: 1.25 mg Morphine Sulfate (Morphine) 1 mg IVP Q4H PRN PRN Reason: Pain, moderate (4-7) Saliva Substitute (Saliva Substitute) 0 ml PO 5XD PRN PRN Reason: DRY MOUTH Vancomycin HCl (Vancocin 25 Mg/Ml (Oral Use)) 125 mg PO QID WIL PRN Reason: Protocol Last Admin: 05/09/16 11:06 Dose: 125 mg - Labs Labs: 05/09/16 05:00 05/09/16 05:00 PT 11.4 Seconds (9.9-11.8) 05/08/16 08:30 INR 1.06 (0.93-1.08) 05/08/16 08:30 APTT 30.0 Seconds (23.7-30.8) 05/08/16 08:30 - Constitutional Appears: No Acute Distress, Older Than Stated Age, Chronically Ill - Head Exam Head Exam: ATRAUMATIC, NORMAL INSPECTION, NORMOCEPHALIC - Eye Exam Eye Exam: EOMI Pupil Exam: PERRL - ENT Exam Additional comments: intubated on mechanical ventilation - Respiratory Exam Respiratory Exam: Clear to Ausculation Bilateral. absent: Rales, Rhonchi, Wheezes - Cardiovascular Exam Cardiovascular Exam: RRR, +S1, +S2. absent: Gallop, JVD, Rubs, Murmur - GI/Abdominal Exam GI & Abdominal Exam: Distended, Soft, Diminished Bowel Sounds. absent: Firm, Guarding, Rigid, Tenderness - Neurological Exam Neurological Exam: Alert, Awake, Oriented x3 - Psychiatric Exam Psychiatric exam: Normal Affect, Normal Mood - Skin Skin Exam: Dry, Intact, Normal Color, Warm Assessment and Plan - Assessment and Plan (Free Text) Assessment: 65 year old male with history of pancreatic cancer, bladder cancer, HTN, DM who was originally admitted with ADILENE, pyelonephritis, sepsis, C. diff. GI reconsulted for abdominal distention which is related to ascites. Currently, patient is intubated in the ICU for respiratory distress and worsening renal function. 1. Ascites 2. Pancreatic Ca 3. Cdiff diarrhea 4. Acute Kidney injury 5. Bacteremia 6. Thrombocytopenia Plan: -ddx for ascites includes fluid overload from cardiac or renal causes in the setting of acute renal failure and generalized fluid overload/anasarca as well as possible malignant ascites -Recommend urology consultation for obstructive renal failure in the setting of bladder cancer and recent h/o pyleonephritis -Recommend paracentesis for further evaluation/treatment -Continue PO vancomycin for cdiff colitis -Continue antibiotic management for bacteremia/cystitis as per ID recommendations -Abd US reviewed; extensive ascites -Abdominal flat plate reviewed -CT Chest/Abdomen/Pelvis reviewed -Continue medical management as per ICU team -Will continue to follow and make recommendations as indicated Patient seen and case discussed with attending, Dr. Maier <Michael Maier MD - Last Filed: 05/09/16 21:57> Objective - Vital Signs/Intake and Output Vital Signs (last 24 hours): Temp Pulse Resp BP Pulse Ox 96 F L 64 20 88/53 L 100 05/09/16 16:00 05/09/16 18:30 05/09/16 16:00 05/09/16 18:30 05/09/16 18:30 Intake and Output: 05/09/16 05/10/16 18:59 06:59 Intake Total 3318 0 Output Total 1600 Balance 1718 0 - Medications Medications: Current Medications Albumin Human (Albumin Human 25% (25 Gm/100 Ml)) 25 gm IV Q6 WIL Stop: 05/11/16 18:01 Albuterol/Ipratropium (Duoneb 3 Mg/0.5 Mg (3 Ml) Ud) 3 ml IH [id number] PRN PRN Reason: Shortness Of Breath Budesonide (Pulmicort Respules) 0.5 mg IH [id number] WIL Last Admin: 05/09/16 07:48 Dose: 0.5 mg Chlordiazepoxide (Librium) 25 mg PO Q8 PRN; Protocol PRN Reason: Agitation Last Admin: 05/06/16 05:15 Dose: 25 mg Meropenem 1 gm/ Sodium (Chloride) 100 mls @ 100 mls/hr IVPB Q12 WIL PRN Reason: Protocol Stop: 05/14/16 11:31 Last Admin: 05/09/16 11:07 Dose: 100 mls/hr Famotidine (Pepcid 20mg/50ml Premix) 50 mls @ 100 mls/hr IVPB Q12 WIL Last Admin: 05/09/16 11:06 Dose: 100 mls/hr Dexmedetomidine HCl (Precedex 4 Mcg/Ml (100 Ml)) 100 mls @ 5.96 mls/hr IV .[id number] PRN; Protocol; 0.2 MCG/KG/HR PRN Reason: Agitation Last Titration: 05/09/16 19:45 Dose: 0.5 mcg/kg/hr Sodium Bicarbonate 150 meq/ (Dextrose) 1,150 mls @ 50 mls/hr IV .Q23H WIL Last Admin: 05/09/16 19:59 Dose: 50 mls/hr Insulin Human Lispro (Humalog Low) 0 units SC ACHS WIL PRN Reason: Protocol Last Admin: 05/09/16 17:00 Dose: 1 units Levalbuterol HCl (Xopenex) 1.25 mg IH TIDRESP [facility] Last Admin: 05/09/16 13:12 Dose: 1.25 mg Saliva Substitute (Saliva Substitute) 0 ml PO 5XD PRN PRN Reason: DRY MOUTH Vancomycin HCl (Vancocin 25 Mg/Ml (Oral Use)) 125 mg PO QID WIL PRN Reason: Protocol Last Admin: 05/09/16 18:20 Dose: 125 mg - Labs Labs: 05/09/16 05:00 05/09/16 05:00 PT 11.4 Seconds (9.9-11.8) 05/08/16 08:30 INR 1.06 (0.93-1.08) 05/08/16 08:30 APTT 30.0 Seconds (23.7-30.8) 05/08/16 08:30 Attending/Attestation - Attestation I have personally seen and examined this patient.: Yes I have fully participated in the care of the patient.: Yes I have reviewed all pertinent clinical information, including history, physical exam and plan: Yes Notes (Text): 05/09/16 21:54 Patient seen and examined with medical transcriptionist in MICU. This is a 65 year old male with h/o pancreatic cancer, bladder cancer, HTN, DM who was originally admitted with ADILENE, pyelonephritis, sepsis, C. diff. Now with new onset ascites. Possible multifactorial from cardiac vs renal vs generalized anasarca vs malignant. Send ascitic fluid for cytology, culture, albumin, total protein and amylase. Abdominal pressure 14 not high. Will benefit with therapeutic paracentesis. Continue antibiotics as per MICU.
--- NOTE | 2016-05-09 12:49 | CP.CCUPN ---
<Brannon Greenbegr - Last Filed: 05/09/16 12:45> CCU Subjective - Physician Review Subjective (Free Text): Pt seen and examined at bedside. Pt intubated and sedated at this time. No acute events overnight. Pt was found to by hypotensive with SBP in the 70's, pt was given a fluid bolus at that time in which he responded appropriately. Pt is more alert today than yesterday and able to respond to commands. FiO2 was decreased to 40% and patient is tolerating ventilation well. CCU Objective - Vital Signs / Intake & Output Vital Signs (Last 4 hours): Vital Signs Pulse BP Pulse Ox 05/09/16 12:20 62 92/55 L 99 05/09/16 12:00 63 93/57 L 99 05/09/16 11:40 63 91/54 L 99 05/09/16 11:30 70 93/56 L 100 05/09/16 11:15 62 87/54 L 98 05/09/16 11:00 62 86/51 L 99 05/09/16 10:45 64 83/53 L 99 05/09/16 10:30 64 90/57 L 99 05/09/16 10:15 65 85/52 L 99 05/09/16 10:01 67 84/47 L 98 05/09/16 10:00 64 98 Intake and Output (Last 8hrs): Intake & Output 05/08/16 05/09/16 05/09/16 22:59 06:59 14:59 Intake Total 200 485 Output Total 500 10 Balance -300 475 Weight 262 lb 1.6 oz Intake: IV 360 pepcid 50 merrem 100 precedex 210 Oral 0 0 Other 200 125 Output: Urine 500 10 Urethral (Lu) 500 10 Other: Voiding Method Indwelling Catheter # Voids Urethral (Lu) 0 # Bowel Movements 0 0 - Physical Exam Head: Positive for: Atraumatic, Normocephalic Pupils: Positive for: PERRL Extroacular Muscles: Positive for: EOMI Conjunctiva: Positive for: Normal Ears: Positive for: Normal, NORMAL TM, Normal Canal. Negative for: Erythema Mouth: Positive for: Dry, Other (ET tube in place. ) Neck: Positive for: Normal Range of Motion Respiratory/Chest: Positive for: Clear to Auscultation, Decreased Breath Sounds. Negative for: Respiratory Distress, Accessory Muscle Use, Rales, Rhonchi Cardiovascular: Positive for: Normal S1, S2, Tachycardic Abdomen: Positive for: Distention, Normal Bowel Sounds. Negative for: Tenderness, Peritoneal Signs, Rebound, Guarding, Mass/Organomegaly Genitourinary Male: Positive for: Other (Lu in place.) Back: Positive for: Normal Inspection Upper Extremity: Positive for: Normal Inspection. Negative for: Cyanosis, Edema Lower Extremity: Positive for: Normal Inspection, Edema Neurological: Positive for: GCS=15, CN II-XII Intact, Speech Normal Skin: Positive for: Warm, Dry, Pale, Other (Chronic venous stasis dermatitis changes to b/l lower extremities). Negative for: Rashes Psychiatric: Positive for: Alert, Oriented x 3, Normal Insight, Normal Concentration - Medications Active Medications: Active Medications Generic Name Dose Route Start Last Admin Trade Name Freq PRN Reason Stop Dose Admin Albuterol/Ipratropium 3 ml 05/08/16 09:41 Duoneb 3 Mg/0.5 Mg (3 Ml) Ud IH [id number] PRN Shortness Of Breath Budesonide 0.5 mg 05/07/16 20:00 05/09/16 07:48 Pulmicort Respules IH 0.5 mg [id number] WIL Administration Chlordiazepoxide 25 mg 04/29/16 11:52 05/06/16 05:15 Librium PO 25 mg Q8 PRN Administration Agitation Protocol Meropenem 1 gm/ Sodium 100 mls @ 100 mls/hr 04/30/16 11:30 05/09/16 11:07 Chloride IVPB 05/14/16 11:31 100 mls/hr Q12 WIL Administration Protocol Famotidine 50 mls @ 100 mls/hr 04/30/16 22:00 05/09/16 11:06 Pepcid 20mg/50ml Premix IVPB 100 mls/hr Q12 WIL Administration Dexmedetomidine HCl 100 mls @ 5.96 mls/hr 05/08/16 21:14 05/09/16 04:47 Precedex 4 Mcg/Ml (100 Ml) IV 14.901 mls/hr .[id number] PRN Administration Agitation Protocol 0.2 MCG/KG/HR Insulin Human Lispro 0 units 04/29/16 11:30 05/09/16 11:32 Humalog Low SC 1 units ACHS WIL Administration Protocol Levalbuterol HCl 1.25 mg 05/08/16 08:00 05/09/16 07:47 Xopenex IH 1.25 mg TIDRESP WIL Administration Morphine Sulfate 1 mg 05/05/16 12:57 Morphine IVP Q4H PRN Pain, moderate (4-7) Saliva Substitute 0 ml 04/30/16 14:00 Saliva Substitute PO 5XD PRN DRY MOUTH Vancomycin HCl 125 mg 05/01/16 10:00 05/09/16 11:06 Vancocin 25 Mg/Ml (Oral Use) PO 125 mg QID WIL Administration Protocol - Patient Studies Lab Studies: Microbiology Studies 05/04/16 11:45 Blood Culture - Final Blood-Thru Central Line NO GROWTH AFTER 5 DAYS Gram Stain - Final TEST NOT PERFORMED Lab Studies 05/09/16 05/09/16 05/08/16 Range/Units 06:30 05:00 22:02 WBC 5.8 D (4.5-11.0) 10^3/ul RBC 2.74 L (3.5-6.1) 10^6/uL Hgb 7.9 L (14.0-18.0) gm/dL Hct 24.5 L (42.0-52.0) % MCV 89.4 (80.0-105.0) fL MCH 28.8 (25.0-35.0) pg MCHC 32.2 (31.0-37.0) g/dl RDW 17.9 H (11.5-14.5) % Plt Count 87 L (120.0-450.0) 10^3/uL MPV 11.6 H (7.0-11.0) fl Gran % (50.0-68.0) % Lymph % (Auto) (22.0-35.0) % [place] % (Auto) (1.0-6.0) % Eos % (Auto) (1.5-5.0) % Baso % (Auto) (0.0-3.0) % Gran # (1.4-6.5) Lymph # (1.2-3.4) [place] # (0.1-0.6) Eos # (0.0-0.7) Baso # (0.0-2.0) K/mm3 pCO2 31 L (35-45) mm/Hg pO2 214.0 H (80-100) mm/Hg HCO3 15.3 L (21-28) mmol/L ABG pH 7.30 L (7.35-7.45) ABG Total CO2 16.3 L (22-28) mmol.L ABG O2 Saturation 99.3 H (95-98) % ABG O2 Content 11.8 L (15-23) ML/dl ABG Base Excess -10.1 L (-2.0-3.0) mmol/L ABG Hemoglobin 8.3 L (11.7-17.4) g/dL ABG Carboxyhemoglobin 1.4 (0.5-1.5) % POC ABG HHb (Measured) 0.7 (0-5) % ABG Methemoglobin 1.3 (0.0-3.0) % ABG O2 Capacity 11.9 L (16-24) mL/dl Hgb O2 Saturation 96.6 (95.0-98.0) % FiO2 60.0 % Sodium 147 (132-148) mmol/L Potassium 6.1 H* (3.6-5.0) mmol/L Chloride 113 H (95-110) mmol/L Carbon Dioxide 18 L (21-33) mmol/L Anion Gap 22 H (10-20) BUN 121 H* (7-21) mg/dL Creatinine 4.6 H (0.5-1.4) mg/dL Est GFR ( Amer) 15 Est GFR (Non-Af Amer) 13 POC Glucose (mg/dL) 98 (65-110) mg/dL Random Glucose 134 H (70-110) mg/dL Lactic Acid (0.7-2.1) mmol/L Calcium 6.1 L* (8.4-10.5) mg/dL Total Bilirubin 0.5 (0.2-1.3) mg/dL AST 20 (15-59) U/L ALT 23 (7-56) U/L Alkaline Phosphatase 188 H (38-133) U/L NT-Pro-B Natriuret Pep (0-450) pg/mL Total Protein 6.4 (5.8-8.3) g/dL Albumin 2.2 L (3.0-4.8) g/dL Globulin 4.2 gm/dL Albumin/Globulin Ratio 0.5 L (1.1-1.8) 05/08/16 05/08/16 05/08/16 Range/Units 17:17 16:43 16:08 WBC 9.7 D (4.5-11.0) 10^3/ul RBC 2.86 L (3.5-6.1) 10^6/uL Hgb 8.2 L (14.0-18.0) gm/dL Hct 25.9 L (42.0-52.0) % MCV 90.6 (80.0-105.0) fL MCH 28.7 (25.0-35.0) pg MCHC 31.7 (31.0-37.0) g/dl RDW 17.9 H (11.5-14.5) % Plt Count 97 L (120.0-450.0) 10^3/uL MPV 10.9 (7.0-11.0) fl Gran % 88.1 H (50.0-68.0) % Lymph % (Auto) 7.0 L (22.0-35.0) % [place] % (Auto) 4.9 (1.0-6.0) % Eos % (Auto) 0.0 L (1.5-5.0) % Baso % (Auto) 0.0 (0.0-3.0) % Gran # 8.52 H (1.4-6.5) Lymph # 0.7 L (1.2-3.4) [place] # 0.5 (0.1-0.6) Eos # 0.0 (0.0-0.7) Baso # 0.00 (0.0-2.0) K/mm3 pCO2 41 (35-45) mm/Hg pO2 160.0 H (80-100) mm/Hg HCO3 18.4 L (21-28) mmol/L ABG pH 7.26 L (7.35-7.45) ABG Total CO2 19.7 L (22-28) mmol.L ABG O2 Saturation 99.5 H (95-98) % ABG O2 Content 12.0 L (15-23) ML/dl ABG Base Excess -8.1 L (-2.0-3.0) mmol/L ABG Hemoglobin 8.5 L (11.7-17.4) g/dL ABG Carboxyhemoglobin 1.6 H (0.5-1.5) % POC ABG HHb (Measured) 0.5 (0-5) % ABG Methemoglobin 1.1 (0.0-3.0) % ABG O2 Capacity 12.1 L (16-24) mL/dl Hgb O2 Saturation 96.9 (95.0-98.0) % FiO2 60.0 % Sodium 144 (132-148) mmol/L Potassium 5.9 H* (3.6-5.0) mmol/L Chloride 112 H (95-110) mmol/L Carbon Dioxide 21 (21-33) mmol/L Anion Gap 17 (10-20) BUN 110 H (7-21) mg/dL Creatinine 4.1 H (0.5-1.4) mg/dL Est GFR ( Amer) 18 Est GFR (Non-Af Amer) 15 POC Glucose (mg/dL) 133 H (65-110) mg/dL Random Glucose 127 H (70-110) mg/dL Lactic Acid 1.1 (0.7-2.1) mmol/L Calcium 7.0 L (8.4-10.5) mg/dL Total Bilirubin 0.5 (0.2-1.3) mg/dL AST 24 (15-59) U/L ALT 22 (7-56) U/L Alkaline Phosphatase 192 H (38-133) U/L NT-Pro-B Natriuret Pep (0-450) pg/mL Total Protein 6.5 (5.8-8.3) g/dL Albumin 2.2 L (3.0-4.8) g/dL Globulin 4.2 gm/dL Albumin/Globulin Ratio 0.5 L (1.1-1.8) 05/08/16 05/08/16 Range/Units 13:20 11:19 WBC (4.5-11.0) 10^3/ul RBC (3.5-6.1) 10^6/uL Hgb (14.0-18.0) gm/dL Hct (42.0-52.0) % MCV (80.0-105.0) fL MCH (25.0-35.0) pg MCHC (31.0-37.0) g/dl RDW (11.5-14.5) % Plt Count (120.0-450.0) 10^3/uL MPV (7.0-11.0) fl Gran % (50.0-68.0) % Lymph % (Auto) (22.0-35.0) % [place] % (Auto) (1.0-6.0) % Eos % (Auto) (1.5-5.0) % Baso % (Auto) (0.0-3.0) % Gran # (1.4-6.5) Lymph # (1.2-3.4) [place] # (0.1-0.6) Eos # (0.0-0.7) Baso # (0.0-2.0) K/mm3 pCO2 (35-45) mm/Hg pO2 (80-100) mm/Hg HCO3 (21-28) mmol/L ABG pH (7.35-7.45) ABG Total CO2 (22-28) mmol.L ABG O2 Saturation (95-98) % ABG O2 Content (15-23) ML/dl ABG Base Excess (-2.0-3.0) mmol/L ABG Hemoglobin (11.7-17.4) g/dL ABG Carboxyhemoglobin (0.5-1.5) % POC ABG HHb (Measured) (0-5) % ABG Methemoglobin (0.0-3.0) % ABG O2 Capacity (16-24) mL/dl Hgb O2 Saturation (95.0-98.0) % FiO2 % Sodium (132-148) mmol/L Potassium (3.6-5.0) mmol/L Chloride (95-110) mmol/L Carbon Dioxide (21-33) mmol/L Anion Gap (10-20) BUN (7-21) mg/dL Creatinine (0.5-1.4) mg/dL Est GFR ( Amer) Est GFR (Non-Af Amer) POC Glucose (mg/dL) 147 H (65-110) mg/dL Random Glucose (70-110) mg/dL Lactic Acid (0.7-2.1) mmol/L Calcium (8.4-10.5) mg/dL Total Bilirubin (0.2-1.3) mg/dL AST (15-59) U/L ALT (7-56) U/L Alkaline Phosphatase (38-133) U/L NT-Pro-B Natriuret Pep 692 H (0-450) pg/mL Total Protein (5.8-8.3) g/dL Albumin (3.0-4.8) g/dL Globulin gm/dL Albumin/Globulin Ratio (1.1-1.8) Laboratory Results - last 24 hr 05/08/16 05/08/16 05/08/16 11:19 13:20 16:08 WBC RBC Hgb Hct MCV MCH MCHC RDW Plt Count MPV Gran % Lymph % (Auto) [place] % (Auto) Eos % (Auto) Baso % (Auto) Gran # Lymph # [place] # Eos # Baso # pCO2 41 pO2 160.0 H HCO3 18.4 L ABG pH 7.26 L ABG Total CO2 19.7 L ABG O2 Saturation 99.5 H ABG O2 Content 12.0 L ABG Base Excess -8.1 L ABG Hemoglobin 8.5 L ABG Carboxyhemoglobin 1.6 H POC ABG HHb (Measured) 0.5 ABG Methemoglobin 1.1 ABG O2 Capacity 12.1 L Hgb O2 Saturation 96.9 FiO2 60.0 Sodium Potassium Chloride Carbon Dioxide Anion Gap BUN Creatinine Est GFR ( Amer) Est GFR (Non-Af Amer) POC Glucose (mg/dL) 147 H Random Glucose Lactic Acid Calcium Total Bilirubin AST ALT Alkaline Phosphatase NT-Pro-B Natriuret Pep 692 H Total Protein Albumin Globulin Albumin/Globulin Ratio 05/08/16 05/08/16 05/08/16 16:43 17:17 22:02 WBC 9.7 D RBC 2.86 L Hgb 8.2 L Hct 25.9 L MCV 90.6 MCH 28.7 MCHC 31.7 RDW 17.9 H Plt Count 97 L MPV 10.9 Gran % 88.1 H Lymph % (Auto) 7.0 L [place] % (Auto) 4.9 Eos % (Auto) 0.0 L Baso % (Auto) 0.0 Gran # 8.52 H Lymph # 0.7 L [place] # 0.5 Eos # 0.0 Baso # 0.00 pCO2 pO2 HCO3 ABG pH ABG Total CO2 ABG O2 Saturation ABG O2 Content ABG Base Excess ABG Hemoglobin ABG Carboxyhemoglobin POC ABG HHb (Measured) ABG Methemoglobin ABG O2 Capacity Hgb O2 Saturation FiO2 Sodium 144 Potassium 5.9 H* Chloride 112 H Carbon Dioxide 21 Anion Gap 17 BUN 110 H Creatinine 4.1 H Est GFR ( Amer) 18 Est GFR (Non-Af Amer) 15 POC Glucose (mg/dL) 133 H 98 Random Glucose 127 H Lactic Acid 1.1 Calcium 7.0 L Total Bilirubin 0.5 AST 24 ALT 22 Alkaline Phosphatase 192 H NT-Pro-B Natriuret Pep Total Protein 6.5 Albumin 2.2 L Globulin 4.2 Albumin/Globulin Ratio 0.5 L 05/09/16 05/09/16 05:00 06:30 WBC 5.8 D RBC 2.74 L Hgb 7.9 L Hct 24.5 L MCV 89.4 MCH 28.8 MCHC 32.2 RDW 17.9 H Plt Count 87 L MPV 11.6 H Gran % Lymph % (Auto) [place] % (Auto) Eos % (Auto) Baso % (Auto) Gran # Lymph # [place] # Eos # Baso # pCO2 31 L pO2 214.0 H HCO3 15.3 L ABG pH 7.30 L ABG Total CO2 16.3 L ABG O2 Saturation 99.3 H ABG O2 Content 11.8 L ABG Base Excess -10.1 L ABG Hemoglobin 8.3 L ABG Carboxyhemoglobin 1.4 POC ABG HHb (Measured) 0.7 ABG Methemoglobin 1.3 ABG O2 Capacity 11.9 L Hgb O2 Saturation 96.6 FiO2 60.0 Sodium 147 Potassium 6.1 H* Chloride 113 H Carbon Dioxide 18 L Anion Gap 22 H BUN 121 H* Creatinine 4.6 H Est GFR ( Amer) 15 Est GFR (Non-Af Amer) 13 POC Glucose (mg/dL) Random Glucose 134 H Lactic Acid Calcium 6.1 L* Total Bilirubin 0.5 AST 20 ALT 23 Alkaline Phosphatase 188 H NT-Pro-B Natriuret Pep Total Protein 6.4 Albumin 2.2 L Globulin 4.2 Albumin/Globulin Ratio 0.5 L Fingerstick Blood Sugar Results: 171 Critical Care Progress Note - Nutrition Nutrition: Nutrition Category Date Time Status NPO Diet [DIET] Diets 05/08/16 Dinner Ordered Assessment/Plan - Assessment and Plan (Free Text) Plan: 65 y/o M with PMH of Pancreatic Cancer, Bladder Cancer, HTN, and DM presents the ICU with shortness of breath on the floor yesterday, s/p intubation after failing BIPAP. Pt doing well overnight, while maintaining appropriate O2 saturations. Abdomen appears to have increased distention and will benefit from a paracentesis. Spoke with Urologist consulted, who recommends patient have lu irrigated often to ensure proper placement. Neuro: Intubated, sedated on precedex drip Mental status improved from previous day, more alert Head CT (05/07/16) shows right frontoparietal encephalomalacia. Acute on chronic infarction cannot be excluded. Monitor for acute mental status change Cardio: Hemodynamically stable Keep MAP >65 Initial Echocardiogram shows normal EF with no vegetations Cardiology following Pulm: Intubated, sedated PRVC: FiO2 - 40%, PEEP - 5, RR - 20, TV - 450 CXR (05/09/16) shows possible left pleural effusion with small right-sided opacity CXR (05/08/16) demonstrates bibasilar atelectasis Continue to keep O2 sat >90% GI: Paracentesis recommended GI prophylaxis Consistent carbohydrate diet GI following, Dr. Zavala Nephro: Creatinine continues to rise daily over past several days Lu catheter repositioned again after being in place yesterday Will obtain urine electrolytes, UA, and urine culture Maintain euvolemia Strict I's and O's Hyperkalemic this AM, corrected Replete electrolytes as needed Nephrology consulted, Dr. Shahid. ID/Heme: Afebrile, no leukocytosis Urine and blood cultures repeated results pending. Vancomycin PO for C. diff antigen Continue Merrem as per ID ID consulted, Dr. Erickson Maintain normothermia Hg and platelets stable Continue to transfuse to keep Hg above 7 Endo: Insulin sliding scale Check glucose levels q6h Maintain euglycemia Seen, reviewed, and discussed with attending Yari, PGY-1 <Wojciech ROQUE,Chrissy H - Last Filed: 05/09/16 15:38> CCU Objective - Vital Signs / Intake & Output Vital Signs (Last 4 hours): Vital Signs Pulse BP Pulse Ox 05/09/16 12:20 62 92/55 L 99 05/09/16 12:00 63 93/57 L 99 05/09/16 11:40 63 91/54 L 99 05/09/16 11:30 70 93/56 L 100 Intake and Output (Last 8hrs): Intake & Output 05/09/16 05/09/16 05/09/16 06:59 14:59 22:59 Intake Total 485 Output Total 10 Balance 475 Weight 262 lb 1.6 oz Intake: IV 360 pepcid 50 merrem 100 precedex 210 Oral 0 Other 125 Output: Urine 10 Urethral (Lu) 10 Other: # Voids Urethral (Lu) 0 # Bowel Movements 0 - Medications Active Medications: Active Medications Generic Name Dose Route Start Last Admin Trade Name Freq PRN Reason Stop Dose Admin Albuterol/Ipratropium 3 ml 05/08/16 09:41 Duoneb 3 Mg/0.5 Mg (3 Ml) Ud IH [id number] PRN Shortness Of Breath Budesonide 0.5 mg 05/07/16 20:00 05/09/16 07:48 Pulmicort Respules IH 0.5 mg [id number] WIL Administration Chlordiazepoxide 25 mg 04/29/16 11:52 05/06/16 05:15 Librium PO 25 mg Q8 PRN Administration Agitation Protocol Meropenem 1 gm/ Sodium 100 mls @ 100 mls/hr 04/30/16 11:30 05/09/16 11:07 Chloride IVPB 05/14/16 11:31 100 mls/hr Q12 WIL Administration Protocol Famotidine 50 mls @ 100 mls/hr 04/30/16 22:00 05/09/16 11:06 Pepcid 20mg/50ml Premix IVPB 100 mls/hr Q12 WIL Administration Dexmedetomidine HCl 100 mls @ 5.96 mls/hr 05/08/16 21:14 05/09/16 04:47 Precedex 4 Mcg/Ml (100 Ml) IV 14.901 mls/hr .[id number] PRN Administration Agitation Protocol 0.2 MCG/KG/HR Insulin Human Lispro 0 units 04/29/16 11:30 05/09/16 11:32 Humalog Low SC 1 units ACHS WIL Administration Protocol Levalbuterol HCl 1.25 mg 05/08/16 08:00 05/09/16 13:12 Xopenex IH 1.25 mg TIDRESP WIL Administration Saliva Substitute 0 ml 04/30/16 14:00 Saliva Substitute PO 5XD PRN DRY MOUTH Vancomycin HCl 125 mg 05/01/16 10:00 05/09/16 14:00 Vancocin 25 Mg/Ml (Oral Use) PO 125 mg QID WIL Administration Protocol - Patient Studies Lab Studies: Microbiology Studies 05/04/16 11:45 Blood Culture - Final Blood-Thru Central Line NO GROWTH AFTER 5 DAYS Gram Stain - Final TEST NOT PERFORMED Lab Studies 05/09/16 05/09/16 05/09/16 Range/Units 14:15 06:30 05:00 WBC 5.8 D (4.5-11.0) 10^3/ul RBC 2.74 L (3.5-6.1) 10^6/uL Hgb 7.9 L (14.0-18.0) gm/dL Hct 24.5 L (42.0-52.0) % MCV 89.4 (80.0-105.0) fL MCH 28.8 (25.0-35.0) pg MCHC 32.2 (31.0-37.0) g/dl RDW 17.9 H (11.5-14.5) % Plt Count 87 L (120.0-450.0) 10^3/uL MPV 11.6 H (7.0-11.0) fl Gran % (50.0-68.0) % Lymph % (Auto) (22.0-35.0) % [place] % (Auto) (1.0-6.0) % Eos % (Auto) (1.5-5.0) % Baso % (Auto) (0.0-3.0) % Gran # (1.4-6.5) Lymph # (1.2-3.4) [place] # (0.1-0.6) Eos # (0.0-0.7) Baso # (0.0-2.0) K/mm3 pCO2 31 L (35-45) mm/Hg pO2 214.0 H (80-100) mm/Hg HCO3 15.3 L (21-28) mmol/L ABG pH 7.30 L (7.35-7.45) ABG Total CO2 16.3 L (22-28) mmol.L ABG O2 Saturation 99.3 H (95-98) % ABG O2 Content 11.8 L (15-23) ML/dl ABG Base Excess -10.1 L (-2.0-3.0) mmol/L ABG Hemoglobin 8.3 L (11.7-17.4) g/dL ABG Carboxyhemoglobin 1.4 (0.5-1.5) % POC ABG HHb (Measured) 0.7 (0-5) % ABG Methemoglobin 1.3 (0.0-3.0) % ABG O2 Capacity 11.9 L (16-24) mL/dl Hgb O2 Saturation 96.6 (95.0-98.0) % FiO2 60.0 % Sodium 147 (132-148) mmol/L Potassium 6.1 H* (3.6-5.0) mmol/L Chloride 113 H (95-110) mmol/L Carbon Dioxide 18 L (21-33) mmol/L Anion Gap 22 H (10-20) BUN 121 H* (7-21) mg/dL Creatinine 4.6 H (0.5-1.4) mg/dL Est GFR ( Amer) 15 Est GFR (Non-Af Amer) 13 POC Glucose (mg/dL) (65-110) mg/dL Random Glucose 134 H (70-110) mg/dL Lactic Acid (0.7-2.1) mmol/L Calcium 6.1 L* (8.4-10.5) mg/dL Total Bilirubin 0.5 (0.2-1.3) mg/dL AST 20 (15-59) U/L ALT 23 (7-56) U/L Alkaline Phosphatase 188 H (38-133) U/L Total Protein 6.4 (5.8-8.3) g/dL Albumin 2.2 L (3.0-4.8) g/dL Globulin 4.2 gm/dL Albumin/Globulin Ratio 0.5 L (1.1-1.8) Fluid Source Peritoneal/ascites 05/08/16 05/08/16 05/08/16 Range/Units 22:02 17:17 16:43 WBC 9.7 D (4.5-11.0) 10^3/ul RBC 2.86 L (3.5-6.1) 10^6/uL Hgb 8.2 L (14.0-18.0) gm/dL Hct 25.9 L (42.0-52.0) % MCV 90.6 (80.0-105.0) fL MCH 28.7 (25.0-35.0) pg MCHC 31.7 (31.0-37.0) g/dl RDW 17.9 H (11.5-14.5) % Plt Count 97 L (120.0-450.0) 10^3/uL MPV 10.9 (7.0-11.0) fl Gran % 88.1 H (50.0-68.0) % Lymph % (Auto) 7.0 L (22.0-35.0) % [place] % (Auto) 4.9 (1.0-6.0) % Eos % (Auto) 0.0 L (1.5-5.0) % Baso % (Auto) 0.0 (0.0-3.0) % Gran # 8.52 H (1.4-6.5) Lymph # 0.7 L (1.2-3.4) [place] # 0.5 (0.1-0.6) Eos # 0.0 (0.0-0.7) Baso # 0.00 (0.0-2.0) K/mm3 pCO2 (35-45) mm/Hg pO2 (80-100) mm/Hg HCO3 (21-28) mmol/L ABG pH (7.35-7.45) ABG Total CO2 (22-28) mmol.L ABG O2 Saturation (95-98) % ABG O2 Content (15-23) ML/dl ABG Base Excess (-2.0-3.0) mmol/L ABG Hemoglobin (11.7-17.4) g/dL ABG Carboxyhemoglobin (0.5-1.5) % POC ABG HHb (Measured) (0-5) % ABG Methemoglobin (0.0-3.0) % ABG O2 Capacity (16-24) mL/dl Hgb O2 Saturation (95.0-98.0) % FiO2 % Sodium 144 (132-148) mmol/L Potassium 5.9 H* (3.6-5.0) mmol/L Chloride 112 H (95-110) mmol/L Carbon Dioxide 21 (21-33) mmol/L Anion Gap 17 (10-20) BUN 110 H (7-21) mg/dL Creatinine 4.1 H (0.5-1.4) mg/dL Est GFR ( Amer) 18 Est GFR (Non-Af Amer) 15 POC Glucose (mg/dL) 98 133 H (65-110) mg/dL Random Glucose 127 H (70-110) mg/dL Lactic Acid 1.1 (0.7-2.1) mmol/L Calcium 7.0 L (8.4-10.5) mg/dL Total Bilirubin 0.5 (0.2-1.3) mg/dL AST 24 (15-59) U/L ALT 22 (7-56) U/L Alkaline Phosphatase 192 H (38-133) U/L Total Protein 6.5 (5.8-8.3) g/dL Albumin 2.2 L (3.0-4.8) g/dL Globulin 4.2 gm/dL Albumin/Globulin Ratio 0.5 L (1.1-1.8) Fluid Source 05/08/16 05/08/16 Range/Units 16:08 11:19 WBC (4.5-11.0) 10^3/ul RBC (3.5-6.1) 10^6/uL Hgb (14.0-18.0) gm/dL Hct (42.0-52.0) % MCV (80.0-105.0) fL MCH (25.0-35.0) pg MCHC (31.0-37.0) g/dl RDW (11.5-14.5) % Plt Count (120.0-450.0) 10^3/uL MPV (7.0-11.0) fl Gran % (50.0-68.0) % Lymph % (Auto) (22.0-35.0) % [place] % (Auto) (1.0-6.0) % Eos % (Auto) (1.5-5.0) % Baso % (Auto) (0.0-3.0) % Gran # (1.4-6.5) Lymph # (1.2-3.4) [place] # (0.1-0.6) Eos # (0.0-0.7) Baso # (0.0-2.0) K/mm3 pCO2 41 (35-45) mm/Hg pO2 160.0 H (80-100) mm/Hg HCO3 18.4 L (21-28) mmol/L ABG pH 7.26 L (7.35-7.45) ABG Total CO2 19.7 L (22-28) mmol.L ABG O2 Saturation 99.5 H (95-98) % ABG O2 Content 12.0 L (15-23) ML/dl ABG Base Excess -8.1 L (-2.0-3.0) mmol/L ABG Hemoglobin 8.5 L (11.7-17.4) g/dL ABG Carboxyhemoglobin 1.6 H (0.5-1.5) % POC ABG HHb (Measured) 0.5 (0-5) % ABG Methemoglobin 1.1 (0.0-3.0) % ABG O2 Capacity 12.1 L (16-24) mL/dl Hgb O2 Saturation 96.9 (95.0-98.0) % FiO2 60.0 % Sodium (132-148) mmol/L Potassium (3.6-5.0) mmol/L Chloride (95-110) mmol/L Carbon Dioxide (21-33) mmol/L Anion Gap (10-20) BUN (7-21) mg/dL Creatinine (0.5-1.4) mg/dL Est GFR ( Amer) Est GFR (Non-Af Amer) POC Glucose (mg/dL) 147 H (65-110) mg/dL Random Glucose (70-110) mg/dL Lactic Acid (0.7-2.1) mmol/L Calcium (8.4-10.5) mg/dL Total Bilirubin (0.2-1.3) mg/dL AST (15-59) U/L ALT (7-56) U/L Alkaline Phosphatase (38-133) U/L Total Protein (5.8-8.3) g/dL Albumin (3.0-4.8) g/dL Globulin gm/dL Albumin/Globulin Ratio (1.1-1.8) Fluid Source Laboratory Results - last 24 hr 05/08/16 05/08/16 05/08/16 11:19 16:08 16:43 WBC RBC Hgb Hct MCV MCH MCHC RDW Plt Count MPV Gran % Lymph % (Auto) [place] % (Auto) Eos % (Auto) Baso % (Auto) Gran # Lymph # [place] # Eos # Baso # pCO2 41 pO2 160.0 H HCO3 18.4 L ABG pH 7.26 L ABG Total CO2 19.7 L ABG O2 Saturation 99.5 H ABG O2 Content 12.0 L ABG Base Excess -8.1 L ABG Hemoglobin 8.5 L ABG Carboxyhemoglobin 1.6 H POC ABG HHb (Measured) 0.5 ABG Methemoglobin 1.1 ABG O2 Capacity 12.1 L Hgb O2 Saturation 96.9 FiO2 60.0 Sodium Potassium Chloride Carbon Dioxide Anion Gap BUN Creatinine Est GFR ( Amer) Est GFR (Non-Af Amer) POC Glucose (mg/dL) 147 H 133 H Random Glucose Lactic Acid Calcium Total Bilirubin AST ALT Alkaline Phosphatase Total Protein Albumin Globulin Albumin/Globulin Ratio Fluid Source 05/08/16 05/08/16 05/09/16 17:17 22:02 05:00 WBC 9.7 D 5.8 D RBC 2.86 L 2.74 L Hgb 8.2 L 7.9 L Hct 25.9 L 24.5 L MCV 90.6 89.4 MCH 28.7 28.8 MCHC 31.7 32.2 RDW 17.9 H 17.9 H Plt Count 97 L 87 L MPV 10.9 11.6 H Gran % 88.1 H Lymph % (Auto) 7.0 L [place] % (Auto) 4.9 Eos % (Auto) 0.0 L Baso % (Auto) 0.0 Gran # 8.52 H Lymph # 0.7 L [place] # 0.5 Eos # 0.0 Baso # 0.00 pCO2 pO2 HCO3 ABG pH ABG Total CO2 ABG O2 Saturation ABG O2 Content ABG Base Excess ABG Hemoglobin ABG Carboxyhemoglobin POC ABG HHb (Measured) ABG Methemoglobin ABG O2 Capacity Hgb O2 Saturation FiO2 Sodium 144 147 Potassium 5.9 H* 6.1 H* Chloride 112 H 113 H Carbon Dioxide 21 18 L Anion Gap 17 22 H BUN 110 H 121 H* Creatinine 4.1 H 4.6 H Est GFR ( Amer) 18 15 Est GFR (Non-Af Amer) 15 13 POC Glucose (mg/dL) 98 Random Glucose 127 H 134 H Lactic Acid 1.1 Calcium 7.0 L 6.1 L* Total Bilirubin 0.5 0.5 AST 24 20 ALT 22 23 Alkaline Phosphatase 192 H 188 H Total Protein 6.5 6.4 Albumin 2.2 L 2.2 L Globulin 4.2 4.2 Albumin/Globulin Ratio 0.5 L 0.5 L Fluid Source 05/09/16 05/09/16 06:30 14:15 WBC RBC Hgb Hct MCV MCH MCHC RDW Plt Count MPV Gran % Lymph % (Auto) [place] % (Auto) Eos % (Auto) Baso % (Auto) Gran # Lymph # [place] # Eos # Baso # pCO2 31 L pO2 214.0 H HCO3 15.3 L ABG pH 7.30 L ABG Total CO2 16.3 L ABG O2 Saturation 99.3 H ABG O2 Content 11.8 L ABG Base Excess -10.1 L ABG Hemoglobin 8.3 L ABG Carboxyhemoglobin 1.4 POC ABG HHb (Measured) 0.7 ABG Methemoglobin 1.3 ABG O2 Capacity 11.9 L Hgb O2 Saturation 96.6 FiO2 60.0 Sodium Potassium Chloride Carbon Dioxide Anion Gap BUN Creatinine Est GFR ( Amer) Est GFR (Non-Af Amer) POC Glucose (mg/dL) Random Glucose Lactic Acid Calcium Total Bilirubin AST ALT Alkaline Phosphatase Total Protein Albumin Globulin Albumin/Globulin Ratio Fluid Source Peritoneal/ascites Critical Care Progress Note - Nutrition Nutrition: Nutrition Category Date Time Status NPO Diet [DIET] Diets 05/08/16 Dinner Ordered Attending/Attestation - Attestation I have personally seen and examined this patient.: Yes I have fully participated in the care of the patient.: Yes I have reviewed all pertinent clinical information: Yes Notes (Text): 05/09/16 15:29 65 y/o M w/ respiratory failure secondary in creased WOB from AG metabolic acidosis and large abdominal girth. Currently on minimal vent settings able to follow some simple commands Continue broad spectrum abx for possible resistant UTi/Pyelonephritis F.u repeat blood cx and repeat urine cx sent. Lu catheter needs to be evaluated by urology as it has been several time that urine output has decreased due to improper lu placement. Kitty worsening secondary to likely infection / bladder ca hx and dehydration. Continue I.V fluids w/ normal saline and watch urine output. Oncology follow up needed due to pancreatic and bladder ca . Abd US done shows pockets of ascities w. distended loops of bowel. Paracentesis done diagnostic 50 cc jose luis fluid under US guidance in sterile technique . labs sent for cytology, cell count, cx . Plans for P.S trials early in the a.m for extubation cc time 72 min
[2016-05-09 15:16] LABS: BODY FLUID TYPE PERITONEAL/ASCITES
[2016-05-09 15:40] LABS: BF GROSS APPEARANCE TURBID (CLEAR); BODY FLUID TOTAL COUNT 100 (0-0)
[2016-05-09] MEDS ORDERED: Albumin Human 25% (12.5 gm/50 ml) IV SCH (18:00)
[2016-05-09] MEDS ORDERED: Sodium Bicarbonate 8.4% 150 MEQ in Dextrose 5% In Water 1,000 ML IV SCH (18:15)
[2016-05-09 19:22] LABS: URINE BILIRUBIN NEGATIVE (NEGATIVE); URINE BLOOD LARGE (NEGATIVE); URINE GLUCOSE (UA) NEGATIVE (NEGATIVE); URINE KETONE NEGATIVE (NEGATIVE); URINE LEUKOCYTE ESTERASE MODERATE Leu/uL (NEGATIVE); URINE PROTEIN TRACE mg/dL (<30 mg/dL); URINE UROBILINOGEN 0.2 E.U./dL (<1 E.U./dL)
[2016-05-09 19:24] LABS: URINE APPEARANCE TURBID (CLEAR); URINE COLOR YELLOW (YELLOW)
[2016-05-09 19:36] LABS: URINE BACTERIA FEW (NEG); URINE WBC TNTC /hpf (0-6)
[2016-05-10] MEDS: Albumin Human 25% (25 gm/100 ml) IV SCH ×4 (00:15→20:54)
[2016-05-10 05:57] LABS: ARTERIAL BLOOD GAS HCO3 19.2 mmol/L (21-28); ARTERIAL BLOOD GAS O2 CAPACITY 10.1 mL/dl (16-24); ARTERIAL BLOOD HGB O2 SAT 96.4 % (95.0-98.0); CARBOXYHEMOGLOBIN 1.6 % (0.5-1.5); HHB 1.1 % (0-5); METHEMOGLOBIN 0.9 % (0.0-3.0)
[2016-05-10 06:38] LABS: MEAN CELL VOLUME 89.4 fL (80.0-105.0); MEAN CORPUSCULAR HEMOGLOBIN 29.3 pg (25.0-35.0); MEAN CORPUSCULAR HGB CONC 32.7 g/dl (31.0-37.0); MEAN PLATELET VOLUME 11.1 fl (7.0-11.0); RED CELL DISTRIBUTION WIDTH 17.1 % (11.5-14.5)
[2016-05-10 06:45] LABS: ALB/GLOB RATIO 0.6 (1.1-1.8); BILIRUBIN,TOTAL 0.4 mg/dL (0.2-1.3); POTASSIUM 3.9 mmol/L (3.6-5.0); TOTAL PROTEIN 5.8 g/dL (5.8-8.3)
[2016-05-10 06:46] LABS: WHITE BLOOD COUNT 2.6 10^3/ul (4.5-11.0)
[2016-05-10 06:58] LABS: CALCIUM 5.9 mg/dL (8.4-10.5)
[2016-05-10] MEDS: Levalbuterol 1.25 MG/3 ML Inhal Soln UD IH SCH ×4 (07:06→19:50)
[2016-05-10] MEDS: Budesonide 0.5 mg/2 ml Inhal Susp UD IH SCH ×2 (07:06→19:50)
--- NOTE | 2016-05-10 07:22 | PN ---
DATE: 05/10/2016(615am--705am) SUBJECTIVE: The patient remains on the ventilator. He is sedated, but arousable. PHYSICAL EXAMINATION: VITAL SIGNS: Temperature is 98.0, pulse 66, respirations 20/20, blood pressure 95/45. HEENT: Normocephalic, atraumatic. No JVD. CARDIOVASCULAR: Systolic ejection murmur at the lower left sternal border. Questionable S3 gallop. LUNGS: Decreased breath sounds with minimal crackles at the bases. Less rhonchi. No wheezing. EXTREMITIES: Mild edema. No cyanosis, no clubbing. Calves are nontender to palpation. GASTROINTESTINAL: Abdomen is soft, nontender, nondistended. Bowel sounds are positive. SKIN: No acute rash. NEUROLOGIC: Limited at the present time. PERTINENT LABORATORY DATA: Chest x-ray was done this morning and reviewed. There is a mild increase in the pulmonary vascular congestive changes. Arterial blood gas was done on assist control 20, tidal volume 450, FiO2 40%. Results are: PH 7.40, pCO2 of 31, pO2 of 99. IMPRESSION: 1. Respiratory failure. 2. Klebsiella sepsis. 3. Severe cystitis. 4. Severe anemia. 5. Advanced pancreatic cancer. Positive ascites. 6. Bladder cancer. 7. Worsening renal dysfunction. PLAN: The patient remains in the ICU and on the ventilator. He is currently sedated but easily arousable. I did discuss the case with the night nurse at length. The night nurse stated that the patient did have a good night. I did review the x-ray as above. The x-ray shows a mild increase in pulmonary vascular congestive changes. Input by Dr. Rogel (cardiology) is noted. I have also reviewed the arterial blood gas. The arterial blood gas is certainly improved - with normalization of the pH, and a decrease in the alveolar arterial gradient. Hopefully, the ICU team will try weaning trials this morning. On physical exam, there is less bronchospasm noted. I will continue with the current nebulizer treatments and inhaled steroids for now. The patient is clinically improved - compared to a few days ago. However, again, this patient's overall status/prognosis remains poor. I will discuss the above with the entire ICU team in the next few moments. I will also discuss the above with Dr. Dorsey. Kenroy Lino MD cc: [phone] TT: 05/10/2016 07:22:02 Confirmation # [id number] Dictation # [id number] mn SANDY
[2016-05-10] MEDS: Insulin Lispro (humaLOG) LOW Coverage SC SCH ×4 (07:30→21:54)
--- NOTE | 2016-05-10 08:35 | CP.PCM.PN ---
Subjective - Date & Time of Evaluation Date of Evaluation: 05/10/16 Time of Evaluation: 08:00 - Subjective Subjective: Patient continues to be on the ventilator, sedated, no fevers currently. Objective - Vital Signs/Intake and Output Vital Signs (last 24 hours): Temp Pulse Resp BP Pulse Ox 98.0 F 66 22 95/45 L 100 05/10/16 04:00 05/10/16 06:30 05/10/16 07:12 05/10/16 06:30 05/10/16 07:12 Intake and Output: 05/10/16 05/10/16 06:59 18:59 Intake Total 1114 Output Total 1999 Balance -886 - Medications Medications: Current Medications Albumin Human (Albumin Human 25% (25 Gm/100 Ml)) 25 gm IV Q6 WIL Stop: 05/11/16 18:01 Last Admin: 05/10/16 05:53 Dose: 25 gm Albuterol/Ipratropium (Duoneb 3 Mg/0.5 Mg (3 Ml) Ud) 3 ml IH [id number] PRN PRN Reason: Shortness Of Breath Budesonide (Pulmicort Respules) 0.5 mg IH [id number] WIL Last Admin: 05/10/16 07:06 Dose: 0.5 mg Calcium Gluconate (Calcium Gluconate Iv) 1,000 mg IV ONCE ONE Stop: 05/10/16 07:27 Chlordiazepoxide (Librium) 25 mg PO Q8 PRN; Protocol PRN Reason: Agitation Last Admin: 05/06/16 05:15 Dose: 25 mg Meropenem 1 gm/ Sodium (Chloride) 100 mls @ 100 mls/hr IVPB Q12 WIL PRN Reason: Protocol Stop: 05/14/16 11:31 Last Admin: 05/09/16 22:15 Dose: 100 mls/hr Famotidine (Pepcid 20mg/50ml Premix) 50 mls @ 100 mls/hr IVPB Q12 WIL Last Admin: 05/09/16 22:14 Dose: 100 mls/hr Dexmedetomidine HCl (Precedex 4 Mcg/Ml (100 Ml)) 100 mls @ 5.96 mls/hr IV .[id number] PRN; Protocol; 0.2 MCG/KG/HR PRN Reason: Agitation Last Titration: 05/10/16 06:02 Dose: 0.67 mcg/kg/hr Sodium Bicarbonate 150 meq/ (Dextrose) 1,150 mls @ 50 mls/hr IV .Q23H [facility] Last Admin: 05/09/16 19:59 Dose: 50 mls/hr Insulin Human Lispro (Humalog Low) 0 units SC ACHS WIL PRN Reason: Protocol Last Admin: 05/09/16 22:08 Dose: Not Given Levalbuterol HCl (Xopenex) 1.25 mg IH TIDRESP [facility] Last Admin: 05/10/16 07:06 Dose: 1.25 mg Saliva Substitute (Saliva Substitute) 0 ml PO 5XD PRN PRN Reason: DRY MOUTH Vancomycin HCl (Vancocin 25 Mg/Ml (Oral Use)) 125 mg PO QID WIL PRN Reason: Protocol Last Admin: 05/09/16 22:10 Dose: 125 mg - Labs Labs: 05/10/16 06:04 05/10/16 06:04 PT 11.4 Seconds (9.9-11.8) 05/08/16 08:30 INR 1.06 (0.93-1.08) 05/08/16 08:30 APTT 30.0 Seconds (23.7-30.8) 05/08/16 08:30 - Constitutional Appears: Other (Intubated and sedated) - Head Exam Head Exam: NORMAL INSPECTION - ENT Exam Additional comments: ET tube in place - Neck Exam Neck Exam: absent: Lymphadenopathy, Meningismus - Respiratory Exam Respiratory Exam: Decreased Breath Sounds Additional comments: right anterior chest wall port site intact - Cardiovascular Exam Cardiovascular Exam: +S1, +S2 - GI/Abdominal Exam GI & Abdominal Exam: Distended, Soft. absent: Tenderness Additional comments: right-sided lower abdomen dry dressings in place Assessment and Plan - Assessment and Plan (Free Text) Plan: Assessment Severe sepsis with acute renal failure and ventilator-dependent respiratory failure probably secondary to Klebsiella pneumoniae bacteremia probably from severe cystitis and pyelonephritis, R/O port infection, R/O abdominal compartment syndrome with ascites S/P paracentesis POD #1; also with C diff associated diarrhea, slowly improving; also now with Micrococcus species in the 05/04/2016 blood cx from the port, which is a contaminant (unlike other coagulase negative staph) acute anemia Pancreatic cancer S/P chemotherapy and radiation therapy and surgery HTN DM obesity with BMI 34 Plan continue Meropenem (05/01 cx are still positive but the 05/04 cx are negative x 3 days in terms of the Klebsiella); CT Abdomen and pelvis reviewed; continue PO Vancomycin (day 8); will follow up results of 2D echo repeated 05/07/2016; follow up repeat blood cx done yesterday to make sure the Micrococcus is not persistently in the blood follow up Ascitic fluid analysis and cultures would consider removal of the port because of the persistent Klebsiella bacteremia when feasible (currently patient is thrombocytopenic and would hesitate to have the port removed right now) Will continue to follow clinically Overall prognosis is poor
--- NOTE | 2016-05-10 08:35 | PN ---
DATE: 05/09/2016 The patient was seen earlier today in the intensive care unit. He was intubated with an FiO2 of 80%, and being sedated with Precedex. He appeared to be quite volume overloaded on exam. Beard catheter was in place, with jose luis colored urine. He was on an FIO2 of 40% when I saw him, and also had wrist restraints in place as well. Eyes were open. He did not appear to be in any pain or distress. VITAL SIGNS ARE FOLLOWS: Blood pressure is 98/55, with a minimum blood pressure in the last 24-ho ur period of approximately 72/47, and a maximum of 98/50. Heart rate is 64, but has ranged from the 50s to the 60s in the last 24-hour period. Temperature is 96.4, and the patient has been afebrile fo r the last 24-hour period. Respiratory rate is 20, but has ranged from 17-37 breaths per minute in t he last 24-hour period. Oxygen saturation is 99%, but has ranged from 92-100% in the last 24-hour pe riod. I's and O's are documented as 600/510. The remainder of the exam was as follows: The patient appeared to have pale conjunctivae. His compl exion also appeared to be quite pale, as stated above. There was no jugular venous distention that I could appreciate. He was anicteric. LUNGS HERNÁNDEZ: On my exam were grossly clear to auscultation, and I was unable to appreciate any rale s, rhonchi, or wheezing. CARDIAC EXAMINATION: Had a regular rate and rhythm without any rubs or gallops. There were no heave s. ABDOMEN: Markedly distended. Unable to appreciate any rebounding, guarding, or rigidity, nor any he patosplenomegaly. EXTREMITIES: Had 2 to 3+ dependent edema. NEUROLOGICALLY: The patient was sedated, although his eyes were open. GENITOURINARY EXAMINATION: Notable for the presence of a Beard catheter. LABORATORIES FOLLOWS: White count is 5.8, H and H is 7.9/24.5, with a platelet count of 87,000. ABG had a pH of 7.30 with a pCO2 of 31, PaO2 of 214, and an oxygen saturation of 99% on an FiO2 of 60 % earlier today. Sodium was 147, potassium 6.1, chloride 113, bicarbonate 18, BUN/creatinine was 121 /4.6, with a glucose of 134. Calcium was low at 6.1, and even after correcting for the albumin of 2. 2 corrects to 7.5. Phosphorus 2 days ago was 7.0. Urine studies from today are pending. Blood cult ures from 05/04 have no growth to date. Those from 05/01 have Klebseilla pneumoniae. Abdominal ultrasound from today revealed extensive ascites with hepatosplenomegaly. Chest x-ray from today reveals a persistent opacity in the medial right lung base, as well as a small left pleural ef fusion. IMPRESSION AND PLAN: The patient is a 65-year-old gentleman with a known history of bladder cancer, history of pancreatic cancer for which he has received gemcitabine and Abraxane as recently as 04/13. Type 2 diabetes mellitus that is noninsulin dependent, hypertension with a baseline blood pressure of 140/90, originally admitted with dark melenotic stool, diarrhea, weakness, and noted to have acute kidney injury with rhabdomyolysis, lactic acidosis, hypocalcemia, and anemia. Hospitalization has b een complicated by Klebseilla pneumoniae bacteremia and respiratory compromise, for which the patient is now intubated. 1. The patient has acute kidney injury. His Beard catheter had not been in proper location, and sinc e then has been re-mainpulated. 2. Abdominal ultrasound revealed a significant amount of ascites, and the patient's acute kidney inju ry may very well represent abdominal compartment syndrome, although it is noted that his bladder pres sure was only 14. That being said, since prior imaging did suggest bladder perforation, his bladder pressure may, in fact, not be accurate, and we will see whether or not his renal function improves wi th paracentesis. 3. The patient, on exam, is quite volume overloaded. We will start him on albumin 25 g intravenously every 6 hours for now. 4. The patient is also noted to have a metabolic acidosis with respiratory compensation. It is also contributing to the hyperkalemia, as the acute kidney injury. For now, we will start the patient on D5W with 150 mEq of sodium bicarbonate per liter, but at a rate of only 50 mL hour to try to treat hi s metabolic acidosis and mitigate his hyperkalemia. 5. The patient is also noted to be hypocalcemic, and even after correcting for his albumin of 2.2, co rrected calcium is 7.3. He was noted to be hyperphosphatemic yesterday. He is currently n.p.o., and thus there is no role for any phosphorus binders for the patient at present. If his calcium continu es to decrease, I would then initiate a calcium gluconate infusion with D5W and 10 g of calcium gluco antonella per liter at 50 mL per hour as well, to see whether or not his blood pressure may increase with this (via increasing his cardiac output). 6. The patient is amassing several electrolyte disorders which, to treat appropriately, would require excessive volume, and given the fact that he has worsening hyperkalemia with metabolic acidosis and hypocalcemia, hemodialysis would ordinarily be a reasonable option except for the fact that the patie nt has 2 separate primary malignancies, and thus his overall prognosis is quite poor. I would genera lly favor conversion of the patient to perhaps palliative care measures given his overall poor progno sis. 7. If the patient does in fact have abdominal compartment syndrome, then his cardiac output would imp rove with therapeutic paracentesis as well. Otherwise, he will need pressure therapy to maintain matilad n arterial pressure of 65 mmHg. 8. For now, we will start him on albumin 25 g intravenously every 6 hours. 9. Also contributing to his acute kidney injury is possible pyelonephritis on the basis of the CT sca n he had of his chest, abdomen, and pelvis yesterday, and the patient remains on meropenem 1 g intrav enously twice daily. 10. For gastrointestinal prophylaxis, continue famotidine. 11. For deep venous thrombosis prophylaxis, since he is thrombocytopenic, we are unable to use Loveno x or heparin. 12. If the patient's urine studies show a fractional excretion of urea nitrogen of less than 35%, the n this would suggest that the patient is volume responsive, and would argue for continuing use of alb umin. 13. Given the presence of ascites in this patient as well as hypocalcemia, we will also check an amyl ase and lipase with his next set of labs as well. 14. Overall, the patient's clinical course was not improved. If it is compatible with goals of care, we will need to consider hemodialysis. Review of the chart, review of systems, past medical history, social history, and family history were all reviewed, and there were no new changes. More than 35 minutes were spent in the care of this ICU patient today. Barry Shahid MD cc: [id number] TT: 05/09/2016 18:59:30 Confirmation # [id number] Dictation # [id number] fredo
--- NOTE | 2016-05-10 08:47 | PN ---
DATE: 05/10/2016 I saw the patient in the intensive care unit. He is more alert. He is awake. He is looking at me; I am talking to him. He is on the ventilator, and both his arms are tied down because he is pulling things out, but it is very possible he can be extubated today. He has a good chance of that. I had multiple phone calls yesterday from the . She wants him to have an osteopathic manipulative treatment. I gave him that to his back as best I could in bed. I think it might have helped him a little bit. Also, she wanted him to have vitamin C IV infusion; she is demanding this. I will discuss this with Dr. Vitale, the EMBOSSOGRAPH OPERATOR of the hospital, to see if we can arrange this; it is not on formulary. I discussed this with the pharmacy already and they stated they have never done it here in the hospital; it is usually an outpatient and it is very expensive. The said she will get me the IV vitamin C if it is okay to be done here; she believes in this. Presently, we are hoping to get the tube out of him and get him off the ventilator. He is probably going to get a paracentesis soon. PHYSICAL EXAMINATION: VITAL SIGNS: He has a 98.0 temp, 64 pulse, 94/ blood pressure, 100 O2 sat, and 22 respiratory rate. HEENT: Head is atraumatic, normocephalic. He is looking at me. He is aware. He is shaking his head yes and no for yes and no questions. He is on the ventilator. HEART: Regular rate. LUNGS: Decreased breath sounds but clear. ABDOMEN: Soft, morbidly obese, nontender. EXTREMITIES: Trace edema. He has a Beard in. He has a ventilator tube in. He is tied down for his safety. LABORATORY DATA: He has a 2.6 white count, 7.2 hemoglobin, 22 hematocrit with 49 platelets. I will transfuse him 2 units of packed red blood cells today. His INR is 1.06. He has a 153 sodium, potassium 3.9, BUN 91, creatinine is 2.2 (it is getting better). GFR is up to 30, sugar is 173, calcium is 5.9. Total bili is 0.4, AST is 14, ALT is 22, alkaline phosphatase 131, total protein is 5.8. His urine was moderate. He is being seen by multiple doctors: Pulmonology, cardiology, infectious disease, renal, GI. I will discuss with the EMBOSSOGRAPH OPERATOR of the hospital about vitamin C infusion. I gave him an osteopathic treatment. He has multiple problems: Pancreatic cancer, congestive heart failure versus acute respiratory failure, chronic obstructive pulmonary disease, dehydration, anemia, [id number]-[id number] elevation myocardial infarction, urinary tract infection , high potassium. Hopefully he can be extubated today. Melquiades Dorsey DO cc: [id number] TT: 05/10/2016 08:46:43 Confirmation # [id number] Dictation # [id number] mn MTDD
[2016-05-10] MEDS ORDERED: Sodium Chloride 0.9% 1,000 ML IV SCH (09:30)
[2016-05-10] MEDS: Meropenem 1 GM in Sodium Chloride 0.9% 100 ML IVPB SCH ×2 (09:37→21:51)
[2016-05-10] MEDS: Famotidine 20mg/50ml 50 ML IVPB SCH ×2 (09:37→21:42)
[2016-05-10] MEDS: Vancomycin 25 MG/ML PO SCH ×4 (09:38→22:00)
--- NOTE | 2016-05-10 10:09 | CP.PCM.PN ---
<Scott Fraser - Last Filed: 05/10/16 11:08> Subjective - Date & Time of Evaluation Date of Evaluation: 05/10/16 Time of Evaluation: 10:08 - Subjective Subjective: Medicine PGY1 - GI service Patient seen and examined at bedside in the ICU. He was extubated succesfully this morning. Answering questions appropriately. No acute overnight issues were reported. Underwent bedside paracentesis yesterday, fluid sent for analysis. Objective - Vital Signs/Intake and Output Vital Signs (last 24 hours): Temp Pulse Resp BP Pulse Ox 98.0 F 66 22 95/45 L 100 05/10/16 04:00 05/10/16 06:30 05/10/16 07:12 05/10/16 06:30 05/10/16 07:12 Intake and Output: 05/10/16 05/10/16 06:59 18:59 Intake Total 1114 Output Total 1999 Balance -886 - Medications Medications: Current Medications Albumin Human (Albumin Human 25% (25 Gm/100 Ml)) 25 gm IV Q6 WIL Stop: 05/11/16 18:01 Last Admin: 05/10/16 05:53 Dose: 25 gm Albuterol/Ipratropium (Duoneb 3 Mg/0.5 Mg (3 Ml) Ud) 3 ml IH [id number] PRN PRN Reason: Shortness Of Breath Budesonide (Pulmicort Respules) 0.5 mg IH [id number] WIL Last Admin: 05/10/16 07:06 Dose: 0.5 mg Chlordiazepoxide (Librium) 25 mg PO Q8 PRN; Protocol PRN Reason: Agitation Last Admin: 05/06/16 05:15 Dose: 25 mg Meropenem 1 gm/ Sodium (Chloride) 100 mls @ 100 mls/hr IVPB Q12 WIL PRN Reason: Protocol Stop: 05/14/16 11:31 Last Admin: 05/10/16 09:37 Dose: 100 mls/hr Famotidine (Pepcid 20mg/50ml Premix) 50 mls @ 100 mls/hr IVPB Q12 WIL Last Admin: 05/10/16 09:37 Dose: 100 mls/hr Sodium Chloride (Sodium Chloride 0.9%) 1,000 mls @ 100 mls/hr IV .Q10H WIL Last Admin: 05/10/16 09:40 Dose: 100 mls/hr Insulin Human Lispro (Humalog Low) 0 units SC ACHS WIL PRN Reason: Protocol Last Admin: 05/10/16 07:30 Dose: Not Given Levalbuterol HCl (Xopenex) 1.25 mg IH TIDRESP [facility] Last Admin: 05/10/16 07:06 Dose: 1.25 mg Saliva Substitute (Saliva Substitute) 0 ml PO 5XD PRN PRN Reason: DRY MOUTH Vancomycin HCl (Vancocin 25 Mg/Ml (Oral Use)) 125 mg PO QID WIL PRN Reason: Protocol Last Admin: 05/10/16 09:38 Dose: 125 mg - Labs Labs: 05/10/16 06:04 05/10/16 06:04 PT 11.4 Seconds (9.9-11.8) 05/08/16 08:30 INR 1.06 (0.93-1.08) 05/08/16 08:30 APTT 30.0 Seconds (23.7-30.8) 05/08/16 08:30 - Constitutional Appears: No Acute Distress, Older Than Stated Age, Chronically Ill - Head Exam Head Exam: ATRAUMATIC, NORMAL INSPECTION, NORMOCEPHALIC - Eye Exam Eye Exam: EOMI Pupil Exam: PERRL - ENT Exam ENT Exam: Mucous Membranes Moist - Respiratory Exam Respiratory Exam: Decreased Breath Sounds. absent: Rales, Rhonchi, Wheezes - Cardiovascular Exam Cardiovascular Exam: +S1, +S2. absent: Diastolic murmur, Gallop, JVD, Rubs, Murmur - GI/Abdominal Exam GI & Abdominal Exam: Distended, Soft. absent: Firm, Guarding, Rigid, Tenderness , Rebound - Neurological Exam Neurological Exam: Alert, Awake, Oriented x3 - Psychiatric Exam Psychiatric exam: Normal Affect, Normal Mood - Skin Skin Exam: Dry, Intact, Warm Assessment and Plan - Assessment and Plan (Free Text) Assessment: 65 year old male with history of pancreatic cancer, bladder cancer, HTN, DM who was originally admitted with ADILENE, pyelonephritis, sepsis, C. diff. GI reconsulted for abdominal distention which is related to ascites. 1. Ascites 2. Pancreatic Ca 3. Cdiff diarrhea 4. Acute Kidney injury 5. Bacteremia 6. Thrombocytopenia Plan: -ddx for ascites includes fluid overload from cardiac or renal causes in the setting of acute renal failure and generalized fluid overload/anasarca as well as possible malignant ascites -Bedside paracentesis yesterday with 50cc of jose luis fluid; negative for SBP; fluid pending further analysis -Continue PO vancomycin for cdiff colitis -Continue antibiotic management for bacteremia/cystitis as per ID recommendations -Abd US reviewed; extensive ascites -Abdominal flat plate reviewed -CT Chest/Abdomen/Pelvis reviewed -Continue medical management as per ICU team -Will continue to follow and make recommendations as indicated Patient seen and case discussed with attending, Dr. Zavala <Law Zavala - Last Filed: 05/10/16 16:10> Objective - Vital Signs/Intake and Output Vital Signs (last 24 hours): Temp Pulse Resp BP Pulse Ox 98.1 F 118 H 22 147/66 98 05/10/16 15:10 05/10/16 15:10 05/10/16 15:10 05/10/16 15:10 05/10/16 14:00 Intake and Output: 05/10/16 05/10/16 06:59 18:59 Intake Total 1114 0 Output Total 1999 Balance -886 0 - Medications Medications: Current Medications Albumin Human (Albumin Human 25% (25 Gm/100 Ml)) 25 gm IV Q6 WIL Stop: 05/11/16 18:01 Last Admin: 05/10/16 13:22 Dose: 25 gm Albuterol/Ipratropium (Duoneb 3 Mg/0.5 Mg (3 Ml) Ud) 3 ml IH [id number] PRN PRN Reason: Shortness Of Breath Budesonide (Pulmicort Respules) 0.5 mg IH [id number] WIL Last Admin: 05/10/16 07:06 Dose: 0.5 mg Chlordiazepoxide (Librium) 25 mg PO Q8 PRN; Protocol PRN Reason: Agitation Last Admin: 05/06/16 05:15 Dose: 25 mg Meropenem 1 gm/ Sodium (Chloride) 100 mls @ 100 mls/hr IVPB Q12 WIL PRN Reason: Protocol Stop: 05/14/16 11:31 Last Admin: 05/10/16 09:37 Dose: 100 mls/hr Famotidine (Pepcid 20mg/50ml Premix) 50 mls @ 100 mls/hr IVPB Q12 WIL Last Admin: 05/10/16 09:37 Dose: 100 mls/hr Sodium Chloride (Sodium Chloride 0.9%) 1,000 mls @ 100 mls/hr IV .Q10H [facility] Last Admin: 05/10/16 09:40 Dose: 100 mls/hr Insulin Human Lispro (Humalog Low) 0 units SC ACHS WIL PRN Reason: Protocol Last Admin: 05/10/16 11:30 Dose: Not Given Levalbuterol HCl (Xopenex) 1.25 mg IH TIDRESP [facility] Last Admin: 05/10/16 16:05 Dose: 1.25 mg Saliva Substitute (Saliva Substitute) 0 ml PO 5XD PRN PRN Reason: DRY MOUTH Vancomycin HCl (Vancocin 25 Mg/Ml (Oral Use)) 125 mg PO QID WIL PRN Reason: Protocol Last Admin: 05/10/16 14:23 Dose: 125 mg - Labs Labs: 05/10/16 06:04 05/10/16 06:04 PT 11.4 Seconds (9.9-11.8) 05/08/16 08:30 INR 1.06 (0.93-1.08) 05/08/16 08:30 APTT 30.0 Seconds (23.7-30.8) 05/08/16 08:30 Attending/Attestation - Attestation I have personally seen and examined this patient.: Yes I have fully participated in the care of the patient.: Yes I have reviewed all pertinent clinical information, including history, physical exam and plan: Yes Notes (Text): 05/10/16 16:08 65 year old male with h/o pancreatic cancer, bladder cancer, HTN, DM who was originally admitted with ADILENE, pyelonephritis, sepsis, C. diff. We are reconsulted for abdominal distention which is related to ascites. Was intubated for respiratory failure, extubated today. Renal failure improving. 1. Ascites 2. SBP 3. Pancreatic cancer 4. Clostridium difficile diarrhea Plan: -cell count and diff is consistent with SBP -awaiting TP and Albumin to determine etiology of ascites -continue antibiotics per ICU -supportive care per ICU -respiratory status improving
--- NOTE | 2016-05-10 10:53 | CP.CCUPN ---
<Brannon Greenberg - Last Filed: 05/10/16 10:53> CCU Subjective - Physician Review Subjective (Free Text): Pt seen and examined at bedside. Pt intubated and sedated at this time. No acute events overnight. Pt doing well on the ventilator and will be placed on weaning protocol this morning. Pt is alert and able to follow commands at this time. CCU Objective - Vital Signs / Intake & Output Vital Signs (Last 4 hours): Vital Signs Resp Pulse Ox 05/10/16 07:12 22 100 Intake and Output (Last 8hrs): Intake & Output 05/09/16 05/10/16 05/10/16 22:59 06:59 14:59 Intake Total 3318 1114 Output Total 1600 2000 Balance 1718 -886 Weight 263 lb 11.2 oz Intake: IV 318 1114 RH 200 pepcid 50 100 merrem 100 100 precedex 168 164 lh 550 Other 3000 Output: Urine 1600 2000 Urethral (Lu) 1600 2000 Other: Voiding Method Indwelling Catheter # Bowel Movements 0 1 - Physical Exam Head: Positive for: Atraumatic, Normocephalic Pupils: Positive for: PERRL Extroacular Muscles: Positive for: EOMI Conjunctiva: Positive for: Normal Ears: Positive for: Normal, NORMAL TM, Normal Canal. Negative for: Erythema Mouth: Positive for: Dry, Other (ET tube in place. ) Neck: Positive for: Normal Range of Motion Respiratory/Chest: Positive for: Clear to Auscultation, Good Air Exchange, Decreased Breath Sounds. Negative for: Respiratory Distress, Accessory Muscle Use, Rales, Rhonchi Cardiovascular: Positive for: Normal S1, S2, Tachycardic Abdomen: Positive for: Distention, Normal Bowel Sounds. Negative for: Tenderness, Peritoneal Signs, Rebound, Guarding, Mass/Organomegaly Genitourinary Male: Positive for: Other (Lu in place.) Back: Positive for: Normal Inspection Upper Extremity: Positive for: Normal Inspection. Negative for: Cyanosis, Edema Lower Extremity: Positive for: Normal Inspection, Edema Neurological: Positive for: GCS=15, CN II-XII Intact, Speech Normal Skin: Positive for: Warm, Dry, Pale, Other (Chronic venous stasis dermatitis changes to b/l lower extremities). Negative for: Rashes Psychiatric: Positive for: Alert, Oriented x 3, Normal Insight, Normal Concentration - Medications Active Medications: Active Medications Generic Name Dose Route Start Last Admin Trade Name Freq PRN Reason Stop Dose Admin Albumin Human 25 gm 05/10/16 00:00 05/10/16 05:53 Albumin Human 25% (25 Gm/100 Ml) IV 05/11/16 18:01 25 gm Q6 WIL Administration Albuterol/Ipratropium 3 ml 05/08/16 09:41 Duoneb 3 Mg/0.5 Mg (3 Ml) Ud IH [id number] PRN Shortness Of Breath Budesonide 0.5 mg 05/07/16 20:00 05/10/16 07:06 Pulmicort Respules IH 0.5 mg [id number] WIL Administration Chlordiazepoxide 25 mg 04/29/16 11:52 05/06/16 05:15 Librium PO 25 mg Q8 PRN Administration Agitation Protocol Meropenem 1 gm/ Sodium 100 mls @ 100 mls/hr 04/30/16 11:30 05/10/16 09:37 Chloride IVPB 05/14/16 11:31 100 mls/hr Q12 WIL Administration Protocol Famotidine 50 mls @ 100 mls/hr 04/30/16 22:00 05/10/16 09:37 Pepcid 20mg/50ml Premix IVPB 100 mls/hr Q12 WIL Administration Sodium Chloride 1,000 mls @ 100 mls/hr 05/10/16 09:30 05/10/16 09:40 Sodium Chloride 0.9% IV 100 mls/hr .Q10H WIL Administration Insulin Human Lispro 0 units 04/29/16 11:30 05/10/16 07:30 Humalog Low SC Not Given ACHS WIL Protocol Levalbuterol HCl 1.25 mg 05/08/16 08:00 05/10/16 07:06 Xopenex IH 1.25 mg TIDRESP WIL Administration Saliva Substitute 0 ml 04/30/16 14:00 Saliva Substitute PO 5XD PRN DRY MOUTH Vancomycin HCl 125 mg 05/01/16 10:00 05/10/16 09:38 Vancocin 25 Mg/Ml (Oral Use) PO 125 mg QID WIL Administration Protocol - Patient Studies Lab Studies: Microbiology Studies 05/09/16 10:18 Blood Culture - Preliminary Blood-Thru Central Line NO GROWTH AFTER 24 HOURS 05/09/16 10:18 Blood Culture - Preliminary Blood-Thru Central Line NO GROWTH AFTER 24 HOURS 05/09/16 14:15 Gram Stain - Final Abdominal Fluid 05/08/16 13:12 MRSA Culture (Admit) - Final Naris MRSA NOT DETECTED 05/04/16 11:45 Blood Culture - Final Blood-Thru Central Line NO GROWTH AFTER 5 DAYS Gram Stain - Final TEST NOT PERFORMED Lab Studies 05/10/16 05/10/16 05/09/16 Range/Units 06:04 05:50 21:45 WBC 2.6 L* D (4.5-11.0) 10^3/ul RBC 2.46 L (3.5-6.1) 10^6/uL Hgb 7.2 L (14.0-18.0) gm/dL Hct 22.0 L (42.0-52.0) % MCV 89.4 (80.0-105.0) fL MCH 29.3 (25.0-35.0) pg MCHC 32.7 (31.0-37.0) g/dl RDW 17.1 H (11.5-14.5) % Plt Count 49 L* (120.0-450.0) 10^3/uL MPV 11.1 H (7.0-11.0) fl pCO2 31 L (35-45) mm/Hg pO2 99.0 (80-100) mm/Hg HCO3 19.2 L (21-28) mmol/L ABG pH 7.40 (7.35-7.45) ABG Total CO2 20.2 L (22-28) mmol.L ABG O2 Saturation 98.9 H (95-98) % ABG O2 Content 10.0 L (15-23) ML/dl ABG Base Excess -5.0 L (-2.0-3.0) mmol/L ABG Hemoglobin 7.2 L (11.7-17.4) g/dL ABG Carboxyhemoglobin 1.6 H (0.5-1.5) % POC ABG HHb (Measured) 1.1 (0-5) % ABG Methemoglobin 0.9 (0.0-3.0) % ABG O2 Capacity 10.1 L (16-24) mL/dl Hgb O2 Saturation 96.4 (95.0-98.0) % FiO2 40.0 % Sodium 153 H (132-148) mmol/L Potassium 3.9 (3.6-5.0) mmol/L Chloride 119 H (95-110) mmol/L Carbon Dioxide 22 (21-33) mmol/L Anion Gap 16 (10-20) BUN 91 H (7-21) mg/dL Creatinine 2.2 H (0.5-1.4) mg/dL Est GFR ( Amer) 36 Est GFR (Non-Af Amer) 30 POC Glucose (mg/dL) 197 H (65-110) mg/dL Random Glucose 173 H (70-110) mg/dL Calcium 5.9 L* (8.4-10.5) mg/dL Total Bilirubin 0.4 (0.2-1.3) mg/dL AST 14 L (15-59) U/L ALT 23 (7-56) U/L Alkaline Phosphatase 131 (38-133) U/L Total Protein 5.8 (5.8-8.3) g/dL Albumin 2.1 L (3.0-4.8) g/dL Globulin 3.7 gm/dL Albumin/Globulin Ratio 0.6 L (1.1-1.8) Amylase 31 L (35-125) U/L Urine Color (YELLOW) Urine Appearance (CLEAR) Urine pH (4.7-8.0) Ur Specific [place] (1.005-1.035) Urine Protein (<30 mg/dL) mg/dL Urine Glucose (UA) (NEGATIVE) mg/dL Urine Ketones (NEGATIVE) mg/dL Urine Blood (NEGATIVE) Urine Nitrate (NEGATIVE) Urine Bilirubin (NEGATIVE) Urine Urobilinogen (<1 E.U./dL) E.U./dL Ur Leukocyte Esterase (NEGATIVE) Fouzia/uL Urine RBC (0-2) /hpf Urine WBC (0-6) /hpf Urine Bacteria (NEG) Ur Random Creatinine mg/dL Ur Random Sodium meq/L Ur Random Potassium meq/L Ur Random Urea Nitrogn mg/dL Fluid Source Fluid Appearance (CLEAR) Fluid WBC (0.0-300.0) /uL Fluid RBC (0.0-0.0) /uL Fluid Tot Cell Count (0-0) Fluid Neutrophils (0-0) % Fluid Lymphocytes (0-0) % Fld Monocyte/Macrophag (0-0) % Fluid Comment 05/09/16 05/09/16 05/09/16 Range/Units 15:59 14:15 14:00 WBC (4.5-11.0) 10^3/ul RBC (3.5-6.1) 10^6/uL Hgb (14.0-18.0) gm/dL Hct (42.0-52.0) % MCV (80.0-105.0) fL MCH (25.0-35.0) pg MCHC (31.0-37.0) g/dl RDW (11.5-14.5) % Plt Count (120.0-450.0) 10^3/uL MPV (7.0-11.0) fl pCO2 (35-45) mm/Hg pO2 (80-100) mm/Hg HCO3 (21-28) mmol/L ABG pH (7.35-7.45) ABG Total CO2 (22-28) mmol.L ABG O2 Saturation (95-98) % ABG O2 Content (15-23) ML/dl ABG Base Excess (-2.0-3.0) mmol/L ABG Hemoglobin (11.7-17.4) g/dL ABG Carboxyhemoglobin (0.5-1.5) % POC ABG HHb (Measured) (0-5) % ABG Methemoglobin (0.0-3.0) % ABG O2 Capacity (16-24) mL/dl Hgb O2 Saturation (95.0-98.0) % FiO2 % Sodium (132-148) mmol/L Potassium (3.6-5.0) mmol/L Chloride (95-110) mmol/L Carbon Dioxide (21-33) mmol/L Anion Gap (10-20) BUN (7-21) mg/dL Creatinine (0.5-1.4) mg/dL Est GFR ( Amer) Est GFR (Non-Af Amer) POC Glucose (mg/dL) 177 H (65-110) mg/dL Random Glucose (70-110) mg/dL Calcium (8.4-10.5) mg/dL Total Bilirubin (0.2-1.3) mg/dL AST (15-59) U/L ALT (7-56) U/L Alkaline Phosphatase (38-133) U/L Total Protein (5.8-8.3) g/dL Albumin (3.0-4.8) g/dL Globulin gm/dL Albumin/Globulin Ratio (1.1-1.8) Amylase (35-125) U/L Urine Color Yellow (YELLOW) Urine Appearance Turbid (CLEAR) Urine pH 6.0 (4.7-8.0) Ur Specific [place] 1.020 (1.005-1.035) Urine Protein Trace H (<30 mg/dL) mg/dL Urine Glucose (UA) Negative (NEGATIVE) mg/dL Urine Ketones Negative (NEGATIVE) mg/dL Urine Blood Large H (NEGATIVE) Urine Nitrate Negative (NEGATIVE) Urine Bilirubin Negative (NEGATIVE) Urine Urobilinogen 0.2 (<1 E.U./dL) E.U./dL Ur Leukocyte Esterase Moderate H (NEGATIVE) Fouzia/uL Urine RBC 5 - 10 (0-2) /hpf Urine WBC Tntc (0-6) /hpf Urine Bacteria Few (NEG) Ur Random Creatinine 52 mg/dL Ur Random Sodium 28 meq/L Ur Random Potassium 58.0 meq/L Ur Random Urea Nitrogn 836 mg/dL Fluid Source Peritoneal/ascites Fluid Appearance Turbid (CLEAR) Fluid WBC 6102.0 H (0.0-300.0) /uL Fluid RBC 13915.0 H (0.0-0.0) /uL Fluid Tot Cell Count 100 H (0-0) Fluid Neutrophils 90.7 H (0-0) % Fluid Lymphocytes 9.3 H (0-0) % Fld Monocyte/Macrophag 0 (0-0) % Fluid Comment TEST NOT PERFORMED 05/09/16 Range/Units 11:15 WBC (4.5-11.0) 10^3/ul RBC (3.5-6.1) 10^6/uL Hgb (14.0-18.0) gm/dL Hct (42.0-52.0) % MCV (80.0-105.0) fL MCH (25.0-35.0) pg MCHC (31.0-37.0) g/dl RDW (11.5-14.5) % Plt Count (120.0-450.0) 10^3/uL MPV (7.0-11.0) fl pCO2 (35-45) mm/Hg pO2 (80-100) mm/Hg HCO3 (21-28) mmol/L ABG pH (7.35-7.45) ABG Total CO2 (22-28) mmol.L ABG O2 Saturation (95-98) % ABG O2 Content (15-23) ML/dl ABG Base Excess (-2.0-3.0) mmol/L ABG Hemoglobin (11.7-17.4) g/dL ABG Carboxyhemoglobin (0.5-1.5) % POC ABG HHb (Measured) (0-5) % ABG Methemoglobin (0.0-3.0) % ABG O2 Capacity (16-24) mL/dl Hgb O2 Saturation (95.0-98.0) % FiO2 % Sodium (132-148) mmol/L Potassium (3.6-5.0) mmol/L Chloride (95-110) mmol/L Carbon Dioxide (21-33) mmol/L Anion Gap (10-20) BUN (7-21) mg/dL Creatinine (0.5-1.4) mg/dL Est GFR ( Amer) Est GFR (Non-Af Amer) POC Glucose (mg/dL) 171 H (65-110) mg/dL Random Glucose (70-110) mg/dL Calcium (8.4-10.5) mg/dL Total Bilirubin (0.2-1.3) mg/dL AST (15-59) U/L ALT (7-56) U/L Alkaline Phosphatase (38-133) U/L Total Protein (5.8-8.3) g/dL Albumin (3.0-4.8) g/dL Globulin gm/dL Albumin/Globulin Ratio (1.1-1.8) Amylase (35-125) U/L Urine Color (YELLOW) Urine Appearance (CLEAR) Urine pH (4.7-8.0) Ur Specific [place] (1.005-1.035) Urine Protein (<30 mg/dL) mg/dL Urine Glucose (UA) (NEGATIVE) mg/dL Urine Ketones (NEGATIVE) mg/dL Urine Blood (NEGATIVE) Urine Nitrate (NEGATIVE) Urine Bilirubin (NEGATIVE) Urine Urobilinogen (<1 E.U./dL) E.U./dL Ur Leukocyte Esterase (NEGATIVE) Fouzia/uL Urine RBC (0-2) /hpf Urine WBC (0-6) /hpf Urine Bacteria (NEG) Ur Random Creatinine mg/dL Ur Random Sodium meq/L Ur Random Potassium meq/L Ur Random Urea Nitrogn mg/dL Fluid Source Fluid Appearance (CLEAR) Fluid WBC (0.0-300.0) /uL Fluid RBC (0.0-0.0) /uL Fluid Tot Cell Count (0-0) Fluid Neutrophils (0-0) % Fluid Lymphocytes (0-0) % Fld Monocyte/Macrophag (0-0) % Fluid Comment Laboratory Results - last 24 hr 05/09/16 05/09/16 05/09/16 11:15 14:00 14:15 WBC RBC Hgb Hct MCV MCH MCHC RDW Plt Count MPV pCO2 pO2 HCO3 ABG pH ABG Total CO2 ABG O2 Saturation ABG O2 Content ABG Base Excess ABG Hemoglobin ABG Carboxyhemoglobin POC ABG HHb (Measured) ABG Methemoglobin ABG O2 Capacity Hgb O2 Saturation FiO2 Sodium Potassium Chloride Carbon Dioxide Anion Gap BUN Creatinine Est GFR ( Amer) Est GFR (Non-Af Amer) POC Glucose (mg/dL) 171 H Random Glucose Calcium Total Bilirubin AST ALT Alkaline Phosphatase Total Protein Albumin Globulin Albumin/Globulin Ratio Amylase Urine Color Yellow Urine Appearance Turbid Urine pH 6.0 Ur Specific [place] 1.020 Urine Protein Trace H Urine Glucose (UA) Negative Urine Ketones Negative Urine Blood Large H Urine Nitrate Negative Urine Bilirubin Negative Urine Urobilinogen 0.2 Ur Leukocyte Esterase Moderate H Urine RBC 5 - 10 Urine WBC Tntc Urine Bacteria Few Ur Random Creatinine 52 Ur Random Sodium 28 Ur Random Potassium 58.0 Ur Random Urea Nitrogn 836 Fluid Source Peritoneal/ascites Fluid Appearance Turbid Fluid WBC 6102.0 H Fluid RBC 09974.0 H Fluid Tot Cell Count 100 H Fluid Neutrophils 90.7 H Fluid Lymphocytes 9.3 H Fld Monocyte/Macrophag 0 Fluid Comment TEST NOT PERFORMED 05/09/16 05/09/16 05/10/16 15:59 21:45 05:50 WBC RBC Hgb Hct MCV MCH MCHC RDW Plt Count MPV pCO2 31 L pO2 99.0 HCO3 19.2 L ABG pH 7.40 ABG Total CO2 20.2 L ABG O2 Saturation 98.9 H ABG O2 Content 10.0 L ABG Base Excess -5.0 L ABG Hemoglobin 7.2 L ABG Carboxyhemoglobin 1.6 H POC ABG HHb (Measured) 1.1 ABG Methemoglobin 0.9 ABG O2 Capacity 10.1 L Hgb O2 Saturation 96.4 FiO2 40.0 Sodium Potassium Chloride Carbon Dioxide Anion Gap BUN Creatinine Est GFR ( Amer) Est GFR (Non-Af Amer) POC Glucose (mg/dL) 177 H 197 H Random Glucose Calcium Total Bilirubin AST ALT Alkaline Phosphatase Total Protein Albumin Globulin Albumin/Globulin Ratio Amylase Urine Color Urine Appearance Urine pH Ur Specific [place] Urine Protein Urine Glucose (UA) Urine Ketones Urine Blood Urine Nitrate Urine Bilirubin Urine Urobilinogen Ur Leukocyte Esterase Urine RBC Urine WBC Urine Bacteria Ur Random Creatinine Ur Random Sodium Ur Random Potassium Ur Random Urea Nitrogn Fluid Source Fluid Appearance Fluid WBC Fluid RBC Fluid Tot Cell Count Fluid Neutrophils Fluid Lymphocytes Fld Monocyte/Macrophag Fluid Comment 05/10/16 06:04 WBC 2.6 L* D RBC 2.46 L Hgb 7.2 L Hct 22.0 L MCV 89.4 MCH 29.3 MCHC 32.7 RDW 17.1 H Plt Count 49 L* MPV 11.1 H pCO2 pO2 HCO3 ABG pH ABG Total CO2 ABG O2 Saturation ABG O2 Content ABG Base Excess ABG Hemoglobin ABG Carboxyhemoglobin POC ABG HHb (Measured) ABG Methemoglobin ABG O2 Capacity Hgb O2 Saturation FiO2 Sodium 153 H Potassium 3.9 Chloride 119 H Carbon Dioxide 22 Anion Gap 16 BUN 91 H Creatinine 2.2 H Est GFR ( Amer) 36 Est GFR (Non-Af Amer) 30 POC Glucose (mg/dL) Random Glucose 173 H Calcium 5.9 L* Total Bilirubin 0.4 AST 14 L ALT 23 Alkaline Phosphatase 131 Total Protein 5.8 Albumin 2.1 L Globulin 3.7 Albumin/Globulin Ratio 0.6 L Amylase 31 L Urine Color Urine Appearance Urine pH Ur Specific [place] Urine Protein Urine Glucose (UA) Urine Ketones Urine Blood Urine Nitrate Urine Bilirubin Urine Urobilinogen Ur Leukocyte Esterase Urine RBC Urine WBC Urine Bacteria Ur Random Creatinine Ur Random Sodium Ur Random Potassium Ur Random Urea Nitrogn Fluid Source Fluid Appearance Fluid WBC Fluid RBC Fluid Tot Cell Count Fluid Neutrophils Fluid Lymphocytes Fld Monocyte/Macrophag Fluid Comment Fingerstick Blood Sugar Results: 197 Critical Care Progress Note - Nutrition Nutrition: Nutrition Category Date Time Status NPO Diet [DIET] Diets 05/08/16 Dinner Ordered Assessment/Plan - Assessment and Plan (Free Text) Plan: 65 y/o M with PMH of Pancreatic Cancer, Bladder Cancer, HTN, and DM presents the ICU with shortness of breath and hypoxia, s/p intubation after failing BIPAP. Pt doing well overnight, will be placed on weaning protocol this morning for extubation. Pt underwent paracentesis yesterday with 40-50 cc of fluid removed. Fluid analysis does not appear to be significant for SBP, cultures are pending at this time. After speaking with with Dr. Atkinson, patient will receive 2 units of PRBCs due to lowered hg of 7.2. Pt will remain in the ICU today for further care. Neuro: Will be extubated today, weaning protocol in place Precedex drip stopped Head CT (05/07/16) shows right frontoparietal encephalomalacia. Acute on chronic infarction cannot be excluded. Monitor for acute mental status change Cardio: Hemodynamically stable Keep MAP >65 Fluid bolus for episodes of hypotension Initial Echocardiogram shows normal EF with no vegetations Cardiology following Pulm: Will be extubated today, CXR (05/10/16) shows appears to show improvement in left pleural effusion from previous day, official read pending CXR (05/09/16) shows possible left pleural effusion with small right-sided opacity CXR (05/08/16) demonstrates bibasilar atelectasis Continue to keep O2 sat >90% Pulmonology, Dr. Lino following GI: Paracentesis performed yesterday. Fluid analysis not significant for SBP Awaiting fluid culture GI prophylaxis Consistent carbohydrate diet GI following, Dr. Sally Kathleen: Creatinine greatly improved after lu catheter repositioning. Adequate urine output UA from 05/09/16 shows moderate leukocyte esterase Urine electrolytes within normal limits IVF switched to NS Maintain euvolemia Strict I's and O's Replete electrolytes as needed Nephrology consulted, Dr. Shahid ID/Heme: Afebrile, leukopenic this morning Urine and blood cultures negative at this time Vancomycin PO for C. diff antigen Continue Merrem as per ID Surgery consulted for port removal, which is possible source of infection ID consulted, Dr. Erickson Maintain normothermia Hg and platelets low, 2 units of PRBCs transfused Continue to transfuse to keep Hg above 7 Endo: Insulin sliding scale Check glucose levels q6h Maintain euglycemia Seen, reviewed, and discussed with attending Yari PGY-1 <Dave Conteh - Last Filed: 05/10/16 11:55> CCU Objective - Vital Signs / Intake & Output Intake and Output (Last 8hrs): Intake & Output 05/09/16 05/10/16 05/10/16 22:59 06:59 14:59 Intake Total 3318 1114 Output Total 1600 1999 Balance 1718 -886 Weight 263 lb 11.2 oz Intake: IV 318 1114 RH 200 pepcid 50 100 merrem 100 100 precedex 168 164 lh 550 Other 3000 Output: Urine 1600 1999 Urethral (Lu) 1600 1999 Other: Voiding Method Indwelling Catheter # Bowel Movements 0 1 - Medications Active Medications: Active Medications Generic Name Dose Route Start Last Admin Trade Name Freq PRN Reason Stop Dose Admin Albumin Human 25 gm 05/10/16 00:00 05/10/16 05:53 Albumin Human 25% (25 Gm/100 Ml) IV 05/11/16 18:01 25 gm Q6 WIL Administration Albuterol/Ipratropium 3 ml 05/08/16 09:41 Duoneb 3 Mg/0.5 Mg (3 Ml) Ud IH [id number] PRN Shortness Of Breath Budesonide 0.5 mg 05/07/16 20:00 05/10/16 07:06 Pulmicort Respules IH 0.5 mg [id number] WIL Administration Chlordiazepoxide 25 mg 04/29/16 11:52 05/06/16 05:15 Librium PO 25 mg Q8 PRN Administration Agitation Protocol Meropenem 1 gm/ Sodium 100 mls @ 100 mls/hr 04/30/16 11:30 05/10/16 09:37 Chloride IVPB 05/14/16 11:31 100 mls/hr Q12 WIL Administration Protocol Famotidine 50 mls @ 100 mls/hr 04/30/16 22:00 05/10/16 09:37 Pepcid 20mg/50ml Premix IVPB 100 mls/hr Q12 WIL Administration Sodium Chloride 1,000 mls @ 100 mls/hr 05/10/16 09:30 05/10/16 09:40 Sodium Chloride 0.9% IV 100 mls/hr .Q10H WIL Administration Insulin Human Lispro 0 units 04/29/16 11:30 05/10/16 07:30 Humalog Low SC Not Given ACHS [facility] Protocol Levalbuterol HCl 1.25 mg 05/08/16 08:00 05/10/16 07:06 Xopenex IH 1.25 mg TIDRESP WIL Administration Saliva Substitute 0 ml 04/30/16 14:00 Saliva Substitute PO 5XD PRN DRY MOUTH Vancomycin HCl 125 mg 05/01/16 10:00 05/10/16 09:38 Vancocin 25 Mg/Ml (Oral Use) PO 125 mg QID WIL Administration Protocol - Patient Studies Lab Studies: Microbiology Studies 05/09/16 10:18 Blood Culture - Preliminary Blood-Thru Central Line NO GROWTH AFTER 24 HOURS 05/09/16 10:18 Blood Culture - Preliminary Blood-Thru Central Line NO GROWTH AFTER 24 HOURS 05/09/16 14:15 Gram Stain - Final Abdominal Fluid 05/08/16 13:12 MRSA Culture (Admit) - Final Naris MRSA NOT DETECTED 05/04/16 11:45 Blood Culture - Final Blood-Thru Central Line NO GROWTH AFTER 5 DAYS Gram Stain - Final TEST NOT PERFORMED Lab Studies 05/10/16 05/10/16 05/09/16 Range/Units 06:04 05:50 21:45 WBC 2.6 L* D (4.5-11.0) 10^3/ul RBC 2.46 L (3.5-6.1) 10^6/uL Hgb 7.2 L (14.0-18.0) gm/dL Hct 22.0 L (42.0-52.0) % MCV 89.4 (80.0-105.0) fL MCH 29.3 (25.0-35.0) pg MCHC 32.7 (31.0-37.0) g/dl RDW 17.1 H (11.5-14.5) % Plt Count 49 L* (120.0-450.0) 10^3/uL MPV 11.1 H (7.0-11.0) fl pCO2 31 L (35-45) mm/Hg pO2 99.0 (80-100) mm/Hg HCO3 19.2 L (21-28) mmol/L ABG pH 7.40 (7.35-7.45) ABG Total CO2 20.2 L (22-28) mmol.L ABG O2 Saturation 98.9 H (95-98) % ABG O2 Content 10.0 L (15-23) ML/dl ABG Base Excess -5.0 L (-2.0-3.0) mmol/L ABG Hemoglobin 7.2 L (11.7-17.4) g/dL ABG Carboxyhemoglobin 1.6 H (0.5-1.5) % POC ABG HHb (Measured) 1.1 (0-5) % ABG Methemoglobin 0.9 (0.0-3.0) % ABG O2 Capacity 10.1 L (16-24) mL/dl Hgb O2 Saturation 96.4 (95.0-98.0) % FiO2 40.0 % Sodium 153 H (132-148) mmol/L Potassium 3.9 (3.6-5.0) mmol/L Chloride 119 H (95-110) mmol/L Carbon Dioxide 22 (21-33) mmol/L Anion Gap 16 (10-20) BUN 91 H (7-21) mg/dL Creatinine 2.2 H (0.5-1.4) mg/dL Est GFR ( Amer) 36 Est GFR (Non-Af Amer) 30 POC Glucose (mg/dL) 197 H (65-110) mg/dL Random Glucose 173 H (70-110) mg/dL Calcium 5.9 L* (8.4-10.5) mg/dL Total Bilirubin 0.4 (0.2-1.3) mg/dL AST 14 L (15-59) U/L ALT 23 (7-56) U/L Alkaline Phosphatase 131 (38-133) U/L Total Protein 5.8 (5.8-8.3) g/dL Albumin 2.1 L (3.0-4.8) g/dL Globulin 3.7 gm/dL Albumin/Globulin Ratio 0.6 L (1.1-1.8) Amylase 31 L (35-125) U/L Urine Color (YELLOW) Urine Appearance (CLEAR) Urine pH (4.7-8.0) Ur Specific [place] (1.005-1.035) Urine Protein (<30 mg/dL) mg/dL Urine Glucose (UA) (NEGATIVE) mg/dL Urine Ketones (NEGATIVE) mg/dL Urine Blood (NEGATIVE) Urine Nitrate (NEGATIVE) Urine Bilirubin (NEGATIVE) Urine Urobilinogen (<1 E.U./dL) E.U./dL Ur Leukocyte Esterase (NEGATIVE) Fouzia/uL Urine RBC (0-2) /hpf Urine WBC (0-6) /hpf Urine Bacteria (NEG) Ur Random Creatinine mg/dL Ur Random Sodium meq/L Ur Random Potassium meq/L Ur Random Urea Nitrogn mg/dL Fluid Source Fluid Appearance (CLEAR) Fluid WBC (0.0-300.0) /uL Fluid RBC (0.0-0.0) /uL Fluid Tot Cell Count (0-0) Fluid Neutrophils (0-0) % Fluid Lymphocytes (0-0) % Fld Monocyte/Macrophag (0-0) % Fluid Comment 05/09/16 05/09/16 05/09/16 Range/Units 15:59 14:15 14:00 WBC (4.5-11.0) 10^3/ul RBC (3.5-6.1) 10^6/uL Hgb (14.0-18.0) gm/dL Hct (42.0-52.0) % MCV (80.0-105.0) fL MCH (25.0-35.0) pg MCHC (31.0-37.0) g/dl RDW (11.5-14.5) % Plt Count (120.0-450.0) 10^3/uL MPV (7.0-11.0) fl pCO2 (35-45) mm/Hg pO2 (80-100) mm/Hg HCO3 (21-28) mmol/L ABG pH (7.35-7.45) ABG Total CO2 (22-28) mmol.L ABG O2 Saturation (95-98) % ABG O2 Content (15-23) ML/dl ABG Base Excess (-2.0-3.0) mmol/L ABG Hemoglobin (11.7-17.4) g/dL ABG Carboxyhemoglobin (0.5-1.5) % POC ABG HHb (Measured) (0-5) % ABG Methemoglobin (0.0-3.0) % ABG O2 Capacity (16-24) mL/dl Hgb O2 Saturation (95.0-98.0) % FiO2 % Sodium (132-148) mmol/L Potassium (3.6-5.0) mmol/L Chloride (95-110) mmol/L Carbon Dioxide (21-33) mmol/L Anion Gap (10-20) BUN (7-21) mg/dL Creatinine (0.5-1.4) mg/dL Est GFR ( Amer) Est GFR (Non-Af Amer) POC Glucose (mg/dL) 177 H (65-110) mg/dL Random Glucose (70-110) mg/dL Calcium (8.4-10.5) mg/dL Total Bilirubin (0.2-1.3) mg/dL AST (15-59) U/L ALT (7-56) U/L Alkaline Phosphatase (38-133) U/L Total Protein (5.8-8.3) g/dL Albumin (3.0-4.8) g/dL Globulin gm/dL Albumin/Globulin Ratio (1.1-1.8) Amylase (35-125) U/L Urine Color Yellow (YELLOW) Urine Appearance Turbid (CLEAR) Urine pH 6.0 (4.7-8.0) Ur Specific [place] 1.020 (1.005-1.035) Urine Protein Trace H (<30 mg/dL) mg/dL Urine Glucose (UA) Negative (NEGATIVE) mg/dL Urine Ketones Negative (NEGATIVE) mg/dL Urine Blood Large H (NEGATIVE) Urine Nitrate Negative (NEGATIVE) Urine Bilirubin Negative (NEGATIVE) Urine Urobilinogen 0.2 (<1 E.U./dL) E.U./dL Ur Leukocyte Esterase Moderate H (NEGATIVE) Fouzia/uL Urine RBC 5 - 10 (0-2) /hpf Urine WBC Tntc (0-6) /hpf Urine Bacteria Few (NEG) Ur Random Creatinine 52 mg/dL Ur Random Sodium 28 meq/L Ur Random Potassium 58.0 meq/L Ur Random Urea Nitrogn 836 mg/dL Fluid Source Peritoneal/ascites Fluid Appearance Turbid (CLEAR) Fluid WBC 6102.0 H (0.0-300.0) /uL Fluid RBC 81182.0 H (0.0-0.0) /uL Fluid Tot Cell Count 100 H (0-0) Fluid Neutrophils 90.7 H (0-0) % Fluid Lymphocytes 9.3 H (0-0) % Fld Monocyte/Macrophag 0 (0-0) % Fluid Comment TEST NOT PERFORMED 05/09/16 Range/Units 11:15 WBC (4.5-11.0) 10^3/ul RBC (3.5-6.1) 10^6/uL Hgb (14.0-18.0) gm/dL Hct (42.0-52.0) % MCV (80.0-105.0) fL MCH (25.0-35.0) pg MCHC (31.0-37.0) g/dl RDW (11.5-14.5) % Plt Count (120.0-450.0) 10^3/uL MPV (7.0-11.0) fl pCO2 (35-45) mm/Hg pO2 (80-100) mm/Hg HCO3 (21-28) mmol/L ABG pH (7.35-7.45) ABG Total CO2 (22-28) mmol.L ABG O2 Saturation (95-98) % ABG O2 Content (15-23) ML/dl ABG Base Excess (-2.0-3.0) mmol/L ABG Hemoglobin (11.7-17.4) g/dL ABG Carboxyhemoglobin (0.5-1.5) % POC ABG HHb (Measured) (0-5) % ABG Methemoglobin (0.0-3.0) % ABG O2 Capacity (16-24) mL/dl Hgb O2 Saturation (95.0-98.0) % FiO2 % Sodium (132-148) mmol/L Potassium (3.6-5.0) mmol/L Chloride (95-110) mmol/L Carbon Dioxide (21-33) mmol/L Anion Gap (10-20) BUN (7-21) mg/dL Creatinine (0.5-1.4) mg/dL Est GFR ( Amer) Est GFR (Non-Af Amer) POC Glucose (mg/dL) 171 H (65-110) mg/dL Random Glucose (70-110) mg/dL Calcium (8.4-10.5) mg/dL Total Bilirubin (0.2-1.3) mg/dL AST (15-59) U/L ALT (7-56) U/L Alkaline Phosphatase (38-133) U/L Total Protein (5.8-8.3) g/dL Albumin (3.0-4.8) g/dL Globulin gm/dL Albumin/Globulin Ratio (1.1-1.8) Amylase (35-125) U/L Urine Color (YELLOW) Urine Appearance (CLEAR) Urine pH (4.7-8.0) Ur Specific [place] (1.005-1.035) Urine Protein (<30 mg/dL) mg/dL Urine Glucose (UA) (NEGATIVE) mg/dL Urine Ketones (NEGATIVE) mg/dL Urine Blood (NEGATIVE) Urine Nitrate (NEGATIVE) Urine Bilirubin (NEGATIVE) Urine Urobilinogen (<1 E.U./dL) E.U./dL Ur Leukocyte Esterase (NEGATIVE) Fouzia/uL Urine RBC (0-2) /hpf Urine WBC (0-6) /hpf Urine Bacteria (NEG) Ur Random Creatinine mg/dL Ur Random Sodium meq/L Ur Random Potassium meq/L Ur Random Urea Nitrogn mg/dL Fluid Source Fluid Appearance (CLEAR) Fluid WBC (0.0-300.0) /uL Fluid RBC (0.0-0.0) /uL Fluid Tot Cell Count (0-0) Fluid Neutrophils (0-0) % Fluid Lymphocytes (0-0) % Fld Monocyte/Macrophag (0-0) % Fluid Comment Laboratory Results - last 24 hr 05/09/16 05/09/16 05/09/16 11:15 14:00 14:15 WBC RBC Hgb Hct MCV MCH MCHC RDW Plt Count MPV pCO2 pO2 HCO3 ABG pH ABG Total CO2 ABG O2 Saturation ABG O2 Content ABG Base Excess ABG Hemoglobin ABG Carboxyhemoglobin POC ABG HHb (Measured) ABG Methemoglobin ABG O2 Capacity Hgb O2 Saturation FiO2 Sodium Potassium Chloride Carbon Dioxide Anion Gap BUN Creatinine Est GFR ( Amer) Est GFR (Non-Af Amer) POC Glucose (mg/dL) 171 H Random Glucose Calcium Total Bilirubin AST ALT Alkaline Phosphatase Total Protein Albumin Globulin Albumin/Globulin Ratio Amylase Urine Color Yellow Urine Appearance Turbid Urine pH 6.0 Ur Specific [place] 1.020 Urine Protein Trace H Urine Glucose (UA) Negative Urine Ketones Negative Urine Blood Large H Urine Nitrate Negative Urine Bilirubin Negative Urine Urobilinogen 0.2 Ur Leukocyte Esterase Moderate H Urine RBC 5 - 10 Urine WBC Tntc Urine Bacteria Few Ur Random Creatinine 52 Ur Random Sodium 28 Ur Random Potassium 58.0 Ur Random Urea Nitrogn 836 Fluid Source Peritoneal/ascites Fluid Appearance Turbid Fluid WBC 6102.0 H Fluid RBC 77335.0 H Fluid Tot Cell Count 100 H Fluid Neutrophils 90.7 H Fluid Lymphocytes 9.3 H Fld Monocyte/Macrophag 0 Fluid Comment TEST NOT PERFORMED 05/09/16 05/09/16 05/10/16 15:59 21:45 05:50 WBC RBC Hgb Hct MCV MCH MCHC RDW Plt Count MPV pCO2 31 L pO2 99.0 HCO3 19.2 L ABG pH 7.40 ABG Total CO2 20.2 L ABG O2 Saturation 98.9 H ABG O2 Content 10.0 L ABG Base Excess -5.0 L ABG Hemoglobin 7.2 L ABG Carboxyhemoglobin 1.6 H POC ABG HHb (Measured) 1.1 ABG Methemoglobin 0.9 ABG O2 Capacity 10.1 L Hgb O2 Saturation 96.4 FiO2 40.0 Sodium Potassium Chloride Carbon Dioxide Anion Gap BUN Creatinine Est GFR ( Amer) Est GFR (Non-Af Amer) POC Glucose (mg/dL) 177 H 197 H Random Glucose Calcium Total Bilirubin AST ALT Alkaline Phosphatase Total Protein Albumin Globulin Albumin/Globulin Ratio Amylase Urine Color Urine Appearance Urine pH Ur Specific [place] Urine Protein Urine Glucose (UA) Urine Ketones Urine Blood Urine Nitrate Urine Bilirubin Urine Urobilinogen Ur Leukocyte Esterase Urine RBC Urine WBC Urine Bacteria Ur Random Creatinine Ur Random Sodium Ur Random Potassium Ur Random Urea Nitrogn Fluid Source Fluid Appearance Fluid WBC Fluid RBC Fluid Tot Cell Count Fluid Neutrophils Fluid Lymphocytes Fld Monocyte/Macrophag Fluid Comment 05/10/16 06:04 WBC 2.6 L* D RBC 2.46 L Hgb 7.2 L Hct 22.0 L MCV 89.4 MCH 29.3 MCHC 32.7 RDW 17.1 H Plt Count 49 L* MPV 11.1 H pCO2 pO2 HCO3 ABG pH ABG Total CO2 ABG O2 Saturation ABG O2 Content ABG Base Excess ABG Hemoglobin ABG Carboxyhemoglobin POC ABG HHb (Measured) ABG Methemoglobin ABG O2 Capacity Hgb O2 Saturation FiO2 Sodium 153 H Potassium 3.9 Chloride 119 H Carbon Dioxide 22 Anion Gap 16 BUN 91 H Creatinine 2.2 H Est GFR ( Amer) 36 Est GFR (Non-Af Amer) 30 POC Glucose (mg/dL) Random Glucose 173 H Calcium 5.9 L* Total Bilirubin 0.4 AST 14 L ALT 23 Alkaline Phosphatase 131 Total Protein 5.8 Albumin 2.1 L Globulin 3.7 Albumin/Globulin Ratio 0.6 L Amylase 31 L Urine Color Urine Appearance Urine pH Ur Specific [place] Urine Protein Urine Glucose (UA) Urine Ketones Urine Blood Urine Nitrate Urine Bilirubin Urine Urobilinogen Ur Leukocyte Esterase Urine RBC Urine WBC Urine Bacteria Ur Random Creatinine Ur Random Sodium Ur Random Potassium Ur Random Urea Nitrogn Fluid Source Fluid Appearance Fluid WBC Fluid RBC Fluid Tot Cell Count Fluid Neutrophils Fluid Lymphocytes Fld Monocyte/Macrophag Fluid Comment Critical Care Progress Note - Nutrition Nutrition: Nutrition Category Date Time Status NPO Diet [DIET] Diets 05/08/16 Dinner Ordered Attending/Attestation - Attestation I have personally seen and examined this patient.: Yes I have fully participated in the care of the patient.: Yes I have reviewed all pertinent clinical information: Yes Notes (Text): 05/10/16 11:55 The patient was seen and examined at the bedside. Patient care was discussed with resident Medical records, lab studies, and imaging were reviewed and management issues were discussed and formulated. Last 24H events reviewed. Agree with above treatment plans as outlined in 's note CCM f\u 35min
--- NOTE | 2016-05-10 11:43 | CON ---
DATE: 05/10/2016 CONSULTATION HISTORY OF PRESENT ILLNESS: The patient is a 65-year-old male who I had seen a number of months ago with initial presentation of chronic retention. He was found to have a high-grade aggressive bladder cancer, was told he needed a cystectomy. As part of the workup for his cystectomy, they found he dejesus d pancreatic cancer. He has been followed at [facility]. He was not an operative candidate for pancreatic cancer and was being treated with chemotherapy, both for the pancreatic cancer and th e bladder cancer. He has had a Beard catheter indwelling. There has been no hematuria. He has been losing weight. He also has a history of alcohol abuse and has been going through withdrawal. He cu rrently is in the ICU, and he has just been extubated. PAST HISTORY: Significant for diabetes, hypertension in addition to the pancreatic cancer, bladder c ancer, and ethanol abuse. He has also had a CVA. FAMILY HISTORY: Noncontributory. SOCIAL HISTORY: He is a former smoker. ALLERGIES: PENICILLIN. REVIEW OF SYMPTOMS: The patient is having difficulty speaking, but from the chart and the nurses, th ere appear to be no symptoms related to the head, eyes, ears, nose, or throat. No apparent chest dianna n. No cough. No abdominal pain. PHYSICAL EXAMINATION: GENERAL: Shows him to be with a respiratory rate of 22, pulse 66. HEENT: Normocephalic. Sclerae are clear. He has lost a significant amount of weight since I last s aw him. ABDOMEN: Soft. No rebound or guarding. No suprapubic fullness. GENITALIA: The Beard is draining jose luis urine. Scrotum, penis, testicles normal. No evidence of pur jodi or edema. LABORATORY WORK: Shows white count 2600, hemoglobin 7.2, platelets 49,000. I do not know whether he has had recent chemo. His chemistries show creatinine of 2.2, BUN of 91. His albumin is 2.1. IMPRESSION: Status post extubation. He is a man with inoperable pancreatic and bladder cancer. He is getting chemotherapy in [place]. He is showing signs of failing with significant loss of body weight, and with regard to his Beard catheter, the catheter must be kept indwelling. If for any reas on it not draining, just irrigate it. There has been no trouble replacing the Beard catheter when I have done it in the office. No need for any urologic intervention at this time. Eddie Chen MD cc: [id number] TT: 05/10/2016 11:43:20 Confirmation # [id number] Dictation # [id number]
--- NOTE | 2016-05-10 12:19 | RAD ---
HISTORY: f/u COMPARISON: 05/09/2016 FINDINGS: LUNGS: No active pulmonary disease. PLEURA: No significant pleural effusion identified, no pneumothorax apparent. CARDIOVASCULAR: Normal. OSSEOUS STRUCTURES: No significant abnormalities. VISUALIZED UPPER ABDOMEN: Normal. OTHER FINDINGS: Endotracheal tube and nasogastric tube in satisfactory position. IMPRESSION: Mild vascular congestion. No focal consolidation.
--- NOTE | 2016-05-10 12:50 | CP.PCM.CON ---
History of Present Illness - History of Present Illness History of Present Illness: Surgery: Dr. Valencia CC: Portacath removal HPI: 65M with PMH of Pancreatic Cancer, Bladder Cancer, HTN, and DM presented to ED on 04/29/16 with reports of fatigue. Pt was ultimately admitted to ICU. During workup, pt was found to have bacteremia + for klebsiella pneumonia. The pt does have a R sided IJ portacatch for chemo tx which he is receiving at [facility] for his pancreatic and bladder CA. Given the potential for the cather to be the source of bacteremia, surgery has been consulted for portacath removal. Pt was seen in ICU. Pt is weak, unable to speak in full sentences. Hx was gathered from review of medical records. PMH: As stated above Surgical Hx: Pancreatic surgery Allergies: Penicillin Medications: Metformin, Combination of amlodipine, valsartan, HCTZ Social Hx: Former smoker, denies alcohol or illicit drug use. Fhx: Non-contributory Review of Systems - Review of Systems Systems not reviewed;Unavailable: Acuity of Condition Past Patient History - Infectious Disease Hx of Infectious Diseases: None - Past Social History Smoking Status: Former Smoker - CARDIAC Hx Hypertension: Yes - NEUROLOGICAL HX Cerebrovascular Accident: Yes - ENDOCRINE/METABOLIC Hx Diabetes Mellitus Type 2: Yes - HEMATOLOGICAL/ONCOLOGICAL Hx Cancer: Yes (Bladder & Pancreatic CA) - MUSCULOSKELETAL/RHEUMATOLOGICAL Hx Falls: No - GENITOURINARY/GYNECOLOGICAL Other/Comment: + Urinary Catheter - PSYCHIATRIC Hx Substance Use: No - SURGICAL HISTORY Hx Surgeries: No - ANESTHESIA Hx Anesthesia: Yes Hx Anesthesia Reactions: No Hx Malignant Hyperthermia: No Meds Allergies/Adverse Reactions: Allergies Allergy/AdvReac Type Severity Reaction Status Date / Time pcn Allergy DIZZINESS Uncoded 04/29/16 01:42 - Medications Medications: Current Medications Albumin Human (Albumin Human 25% (25 Gm/100 Ml)) 25 gm IV Q6 WIL Stop: 05/11/16 18:01 Last Admin: 05/10/16 05:53 Dose: 25 gm Albuterol/Ipratropium (Duoneb 3 Mg/0.5 Mg (3 Ml) Ud) 3 ml IH [id number] PRN PRN Reason: Shortness Of Breath Budesonide (Pulmicort Respules) 0.5 mg IH [id number] WIL Last Admin: 05/10/16 07:06 Dose: 0.5 mg Chlordiazepoxide (Librium) 25 mg PO Q8 PRN; Protocol PRN Reason: Agitation Last Admin: 05/06/16 05:15 Dose: 25 mg Meropenem 1 gm/ Sodium (Chloride) 100 mls @ 100 mls/hr IVPB Q12 WIL PRN Reason: Protocol Stop: 05/14/16 11:31 Last Admin: 05/10/16 09:37 Dose: 100 mls/hr Famotidine (Pepcid 20mg/50ml Premix) 50 mls @ 100 mls/hr IVPB Q12 WIL Last Admin: 05/10/16 09:37 Dose: 100 mls/hr Sodium Chloride (Sodium Chloride 0.9%) 1,000 mls @ 100 mls/hr IV .Q10H [facility] Last Admin: 05/10/16 09:40 Dose: 100 mls/hr Insulin Human Lispro (Humalog Low) 0 units SC ACHS WIL PRN Reason: Protocol Last Admin: 05/10/16 07:30 Dose: Not Given Levalbuterol HCl (Xopenex) 1.25 mg IH TIDRESP [facility] Last Admin: 05/10/16 07:06 Dose: 1.25 mg Saliva Substitute (Saliva Substitute) 0 ml PO 5XD PRN PRN Reason: DRY MOUTH Vancomycin HCl (Vancocin 25 Mg/Ml (Oral Use)) 125 mg PO QID WIL PRN Reason: Protocol Last Admin: 05/10/16 09:38 Dose: 125 mg Physical Exam - Constitutional Appears: Chronically Ill - Head Exam Head Exam: ATRAUMATIC, NORMOCEPHALIC Additional comments: abrasion on forehead - Eye Exam Eye Exam: EOMI. absent: Scleral icterus - ENT Exam ENT Exam: Mucous Membranes Dry, Normal External Ear Exam - Neck Exam Neck exam: Positive for: Full Rom - Respiratory Exam Respiratory Exam: Prolonged Expiratory Phase Additional comments: unable to speak full sentences - GI/Abdominal Exam GI & Abdominal Exam: Distended, Soft. absent: Guarding, Rebound, Rigid, Tenderness - Extremities Exam Extremities exam: Positive for: pedal edema. Negative for: calf tenderness - Neurological Exam Neurological exam: Alert Results - Vital Signs Recent Vital Signs: Last Vital Signs Temp 98.0 F 05/10/16 04:00 Pulse 66 05/10/16 06:30 Resp 22 05/10/16 07:12 BP 95/45 L 05/10/16 06:30 Pulse Ox 100 05/10/16 07:12 - Labs Result Diagrams: 05/10/16 06:04 05/10/16 06:04 Labs: Laboratory Results - last 24 hr 05/09/16 05/09/16 05/09/16 11:15 14:00 14:15 WBC RBC Hgb Hct MCV MCH MCHC RDW Plt Count MPV pCO2 pO2 HCO3 ABG pH ABG Total CO2 ABG O2 Saturation ABG O2 Content ABG Base Excess ABG Hemoglobin ABG Carboxyhemoglobin POC ABG HHb (Measured) ABG Methemoglobin ABG O2 Capacity Hgb O2 Saturation FiO2 Sodium Potassium Chloride Carbon Dioxide Anion Gap BUN Creatinine Est GFR ( Amer) Est GFR (Non-Af Amer) POC Glucose (mg/dL) 171 H Random Glucose Calcium Total Bilirubin AST ALT Alkaline Phosphatase Total Protein Albumin Globulin Albumin/Globulin Ratio Amylase Urine Color Yellow Urine Appearance Turbid Urine pH 6.0 Ur Specific [place] 1.020 Urine Protein Trace H Urine Glucose (UA) Negative Urine Ketones Negative Urine Blood Large H Urine Nitrate Negative Urine Bilirubin Negative Urine Urobilinogen 0.2 Ur Leukocyte Esterase Moderate H Urine RBC 5 - 10 Urine WBC Tntc Urine Bacteria Few Ur Random Creatinine 52 Ur Random Sodium 28 Ur Random Potassium 58.0 Ur Random Urea Nitrogn 836 Fluid Source Peritoneal/ascites Fluid Appearance Turbid Fluid WBC 6102.0 H Fluid RBC 625[address].0 H Fluid Tot Cell Count 100 H Fluid Neutrophils 90.7 H Fluid Lymphocytes 9.3 H Fld Monocyte/Macrophag 0 Fluid Comment TEST NOT PERFORMED Blood Type Antibody Screen Crossmatch BBK History Checked 05/09/16 05/09/16 05/10/16 15:59 21:45 05:50 WBC RBC Hgb Hct MCV MCH MCHC RDW Plt Count MPV pCO2 31 L pO2 99.0 HCO3 19.2 L ABG pH 7.40 ABG Total CO2 20.2 L ABG O2 Saturation 98.9 H ABG O2 Content 10.0 L ABG Base Excess -5.0 L ABG Hemoglobin 7.2 L ABG Carboxyhemoglobin 1.6 H POC ABG HHb (Measured) 1.1 ABG Methemoglobin 0.9 ABG O2 Capacity 10.1 L Hgb O2 Saturation 96.4 FiO2 40.0 Sodium Potassium Chloride Carbon Dioxide Anion Gap BUN Creatinine Est GFR ( Amer) Est GFR (Non-Af Amer) POC Glucose (mg/dL) 177 H 197 H Random Glucose Calcium Total Bilirubin AST ALT Alkaline Phosphatase Total Protein Albumin Globulin Albumin/Globulin Ratio Amylase Urine Color Urine Appearance Urine pH Ur Specific [place] Urine Protein Urine Glucose (UA) Urine Ketones Urine Blood Urine Nitrate Urine Bilirubin Urine Urobilinogen Ur Leukocyte Esterase Urine RBC Urine WBC Urine Bacteria Ur Random Creatinine Ur Random Sodium Ur Random Potassium Ur Random Urea Nitrogn Fluid Source Fluid Appearance Fluid WBC Fluid RBC Fluid Tot Cell Count Fluid Neutrophils Fluid Lymphocytes Fld Monocyte/Macrophag Fluid Comment Blood Type Antibody Screen Crossmatch BBK History Checked 05/10/16 05/10/16 06:04 11:08 WBC 2.6 L* D RBC 2.46 L Hgb 7.2 L Hct 22.0 L MCV 89.4 MCH 29.3 MCHC 32.7 RDW 17.1 H Plt Count 49 L* MPV 11.1 H pCO2 pO2 HCO3 ABG pH ABG Total CO2 ABG O2 Saturation ABG O2 Content ABG Base Excess ABG Hemoglobin ABG Carboxyhemoglobin POC ABG HHb (Measured) ABG Methemoglobin ABG O2 Capacity Hgb O2 Saturation FiO2 Sodium 153 H Potassium 3.9 Chloride 119 H Carbon Dioxide 22 Anion Gap 16 BUN 91 H Creatinine 2.2 H Est GFR ( Amer) 36 Est GFR (Non-Af Amer) 30 POC Glucose (mg/dL) Random Glucose 173 H Calcium 5.9 L* Total Bilirubin 0.4 AST 14 L ALT 23 Alkaline Phosphatase 131 Total Protein 5.8 Albumin 2.1 L Globulin 3.7 Albumin/Globulin Ratio 0.6 L Amylase 31 L Urine Color Urine Appearance Urine pH Ur Specific [place] Urine Protein Urine Glucose (UA) Urine Ketones Urine Blood Urine Nitrate Urine Bilirubin Urine Urobilinogen Ur Leukocyte Esterase Urine RBC Urine WBC Urine Bacteria Ur Random Creatinine Ur Random Sodium Ur Random Potassium Ur Random Urea Nitrogn Fluid Source Fluid Appearance Fluid WBC Fluid RBC Fluid Tot Cell Count Fluid Neutrophils Fluid Lymphocytes Fld Monocyte/Macrophag Fluid Comment Blood Type A POSITIVE Antibody Screen Negative Crossmatch See Detail BBK History Checked Patient has bt Assessment & Plan - Assessment and Plan (Free Text) Assessment: 65M w. bacteremia w. portacath as possible source -will plan for OR on Saturday for portacath removal -c/w current medical management -d/w attending Zemaitis PGY2
[2016-05-10] MEDS ORDERED: Levalbuterol 0.63 MG/3 ML Inhal Soln UD IH ONE (16:00)
--- NOTE | 2016-05-10 18:39 | CON ---
DATE: 05/10/2016 ADDENDUM TO THE CONSULTATION DONE THIS MORNING I stopped back in the intensive care unit. The nurses said his catheter was not draining. I irrigat ed it. I could not a return. I removed the Beard catheter and placed a new 20-Eth[place] catheter, jarett francisco drained urine somewhat murky, but a significant quantity - several hundred mL. The Beard catheter that was originally in, I do not believe was in the bladder. I think it was under some traction, and the balloon pulled out of the bladder into the prostatic urethra. The catheter I put in is in the b ladder and draining nicely. Eddie Chen MD cc: [phone] TT: 05/10/2016 18:39:09 Confirmation # [id number] Dictation # [id number] fredo
[2016-05-10 20:26] LABS: HEMATOCRIT 30.4 % (42.0-52.0); MEAN CELL VOLUME 87.9 fL (80.0-105.0); MEAN CORPUSCULAR HEMOGLOBIN 29.2 pg (25.0-35.0); MEAN CORPUSCULAR HGB CONC 33.2 g/dl (31.0-37.0); MEAN PLATELET VOLUME 11.7 fl (7.0-11.0); RED CELL DISTRIBUTION WIDTH 17.5 % (11.5-14.5); WHITE BLOOD COUNT 9.8 10^3/ul (4.5-11.0)
[2016-05-10 21:27] LABS: ALB/GLOB RATIO 0.7 (1.1-1.8); BILIRUBIN,TOTAL 0.9 mg/dL (0.2-1.3); POTASSIUM 3.9 mmol/L (3.6-5.0); TOTAL PROTEIN 6.6 g/dL (5.8-8.3)
[2016-05-10 21:32] LABS: CALCIUM 6.4 mg/dL (8.4-10.5)
[2016-05-10] MEDS ORDERED: DiphenhydrAMINE 50 mg/ml Inj IVP STA (23:50)
[2016-05-11] MEDS: Albumin Human 25% (25 gm/100 ml) IV SCH ×4 (00:34→17:45)
[2016-05-11 05:46] LABS: ARTERIAL BLOOD GAS HCO3 20.4 mmol/L (21-28); ARTERIAL BLOOD GAS O2 CONTENT 14.9 ML/dl (15-23); ARTERIAL BLOOD GAS PH 7.35 (7.35-7.45); ARTERIAL BLOOD HGB O2 SAT 96.6 % (95.0-98.0); CARBOXYHEMOGLOBIN 1.6 % (0.5-1.5); HHB 0.7 % (0-5); METHEMOGLOBIN 1.2 % (0.0-3.0)
[2016-05-11 06:04] LABS: ALB/GLOB RATIO 0.8 (1.1-1.8); BILIRUBIN,TOTAL 0.7 mg/dL (0.2-1.3); POTASSIUM 3.7 mmol/L (3.6-5.0); TOTAL PROTEIN 6.7 g/dL (5.8-8.3)
[2016-05-11 06:10] LABS: HEMATOCRIT 25.6 % (42.0-52.0); MEAN CELL VOLUME 88.6 fL (80.0-105.0); MEAN CORPUSCULAR HEMOGLOBIN 28.7 pg (25.0-35.0); MEAN CORPUSCULAR HGB CONC 32.4 g/dl (31.0-37.0); MEAN PLATELET VOLUME 11.6 fl (7.0-11.0); RED CELL DISTRIBUTION WIDTH 17.8 % (11.5-14.5); WHITE BLOOD COUNT 6.7 10^3/ul (4.5-11.0)
[2016-05-11 06:59] LABS: CALCIUM 6.6 mg/dL (8.4-10.5)
[2016-05-11] MEDS: Levalbuterol 1.25 MG/3 ML Inhal Soln UD IH SCH ×3 (07:00→20:59)
[2016-05-11] MEDS: Budesonide 0.5 mg/2 ml Inhal Susp UD IH SCH ×2 (07:00→20:59)
--- NOTE | 2016-05-11 07:56 | PN ---
DATE: 05/11/2016(645am--715am) SUBJECTIVE: The patient appears comfortable this morning. He is now extubated and on BiPAP. He is mildly short of breath, but in no acute distress. OBJECTIVE: VITAL SIGNS: Temperature is 97.8, pulse 100, respirations 20/22, blood pressure 143/70. Oxygen saturation on BiPAP is 100%. HEENT: Normocephalic, atraumatic. No JVD. CARDIOVASCULAR: Systolic ejection murmur at the lower left sternal border. Questionable S3 gallop. LUNGS: Decreased breath sounds at the bases with minimal crackles. Much less rhonchi. No wheezing. EXTREMITIES: Mild edema. No cyanosis, no clubbing. Calves are nontender to palpation. GASTROINTESTINAL: Abdomen is soft, nontender, +distended. Bowel sounds are positive. SKIN: No acute rash. NEUROLOGIC: Limited at the present time. PERTINENT LABORATORY DATA: Chest x-ray was done this morning and reviewed. There are less pulmonary vascular congestive changes noted. In addition, there are less basal atelectatic changes noted. Arterial blood gas was done on BiPAP with 50% oxygen. Results are: PH 7.35, pCO2 of 37, pO2 of 161. IMPRESSION: 1. Respiratory failure. 2. Klebsiella sepsis. 3. Severe cystitis. 4. Severe anemia. 5. Advanced pancreatic cancer. Positive ascites. 6. Bladder cancer. 7. Worsening renal dysfunction. PLAN: The patient remains in the ICU. He is now extubated and on BiPAP. He is mildly short of breath, but in no acute distress. I did discuss the case with the night nurse at length. The night nurse stated that the patient did have a good night. The night nurse also stated that the patient has periods of extreme anxiety. Psychiatric evaluation may be helpful at this point in time. I did review the x-ray as above. The x-ray is improved from the previous films. On physical exam, there is certainly less bronchospasm noted. I will continue with the current nebulizer treatments and inhaled steroids for now. I have also reviewed the arterial blood gas. There is normalization of the pH with a decrease in the alveolar arterial gradient. Hopefully, the patient can be changed to nasal cannula this morning. Clinical status of the patient is certainly improved - compared to the initial presentation. However, again, the overall status/prognosis of this patient remains very poor. I will discuss the above with the entire ICU team in the next few moments. I will also discuss the above with Dr. Dorsey. Kenroy Lino MD cc: [phone] TT: 05/11/2016 07:55:53 Confirmation # [id number] Dictation # [id number] DELGADO
--- NOTE | 2016-05-11 08:25 | CP.PCM.PN ---
<Scott Fraser - Last Filed: 05/11/16 13:04> Subjective - Date & Time of Evaluation Date of Evaluation: 05/11/16 Time of Evaluation: 08:17 - Subjective Subjective: Medicine PGY1 - GI service Patient seen and examined at bedside this morning. No acute overnight events or new complaints. Denies chest pain, palpitations, abdominal pain. Tolerating BiPAP. Currently on antibiotics and albumin for SBP. 12 point ROS as per above otherwise negative. Objective - Vital Signs/Intake and Output Vital Signs (last 24 hours): Temp Pulse Resp BP Pulse Ox 97.8 F 100 H 22 143/70 100 05/11/16 04:00 05/11/16 07:20 05/11/16 06:15 05/11/16 06:15 05/11/16 06:15 Intake and Output: 05/11/16 05/11/16 06:59 18:59 Intake Total 400 Output Total 1150 Balance -750 - Medications Medications: Current Medications Albumin Human (Albumin Human 25% (25 Gm/100 Ml)) 25 gm IV Q6 WIL Stop: 05/11/16 18:01 Last Admin: 05/11/16 07:00 Dose: 25 gm Albumin Human (Albumin Human 25% (12.5 Gm/50 Ml)) 12.5 gm IV Q1H WIL Stop: 05/12/16 16:01 Albuterol/Ipratropium (Duoneb 3 Mg/0.5 Mg (3 Ml) Ud) 3 ml IH [id number] PRN PRN Reason: Shortness Of Breath Budesonide (Pulmicort Respules) 0.5 mg IH [id number] WLI Last Admin: 05/11/16 07:00 Dose: 0.5 mg Chlordiazepoxide (Librium) 25 mg PO Q8 PRN; Protocol PRN Reason: Agitation Last Admin: 05/06/16 05:15 Dose: 25 mg Meropenem 1 gm/ Sodium (Chloride) 100 mls @ 100 mls/hr IVPB Q12 WIL PRN Reason: Protocol Stop: 05/14/16 11:31 Last Admin: 05/10/16 21:51 Dose: 100 mls/hr Famotidine (Pepcid 20mg/50ml Premix) 50 mls @ 100 mls/hr IVPB Q12 WIL Last Admin: 05/10/16 21:42 Dose: 100 mls/hr Sodium Chloride (Sodium Chloride 0.9%) 1,000 mls @ 100 mls/hr IV .Q10H [facility] Last Admin: 05/10/16 09:40 Dose: 100 mls/hr Insulin Human Lispro (Humalog Low) 0 units SC ACHS WIL PRN Reason: Protocol Last Admin: 05/10/16 21:54 Dose: Not Given Levalbuterol HCl (Xopenex) 1.25 mg IH TIDRESP [facility] Last Admin: 05/11/16 07:00 Dose: 1.25 mg Saliva Substitute (Saliva Substitute) 0 ml PO 5XD PRN PRN Reason: DRY MOUTH Vancomycin HCl (Vancocin 25 Mg/Ml (Oral Use)) 125 mg PO QID WIL PRN Reason: Protocol Last Admin: 05/10/16 22:00 Dose: Not Given - Labs Labs: 05/11/16 05:40 05/11/16 05:40 PT 11.4 Seconds (9.9-11.8) 05/08/16 08:30 INR 1.06 (0.93-1.08) 05/08/16 08:30 APTT 30.0 Seconds (23.7-30.8) 05/08/16 08:30 - Constitutional Appears: Older Than Stated Age, Chronically Ill - Head Exam Head Exam: ATRAUMATIC, NORMAL INSPECTION, NORMOCEPHALIC - Eye Exam Eye Exam: EOMI - ENT Exam ENT Exam: Mucous Membranes Dry - Respiratory Exam Respiratory Exam: Decreased Breath Sounds. absent: Rales, Rhonchi, Wheezes - Cardiovascular Exam Cardiovascular Exam: RRR, +S1, +S2. absent: Gallop, JVD, Rubs - GI/Abdominal Exam GI & Abdominal Exam: Distended, Soft. absent: Firm, Guarding, Rigid, Tenderness , Rebound - Neurological Exam Neurological Exam: Alert, Awake, Oriented x3 - Psychiatric Exam Psychiatric exam: Normal Affect, Normal Mood - Skin Skin Exam: Dry, Intact, Normal Color, Warm Assessment and Plan - Assessment and Plan (Free Text) Assessment: 65 year old male with history of pancreatic cancer, bladder cancer, HTN, DM who was originally admitted with ADILENE, pyelonephritis, sepsis, C. diff. GI reconsulted for abdominal distention which is related to ascites. 1. Ascites 2. SBP 3. Pancreatic Ca 4. Cdiff diarrhea 5. Acute Kidney injury 6. Bacteremia 7. Thrombocytopenia Plan: -ddx for ascites includes fluid overload from cardiac or renal causes in the setting of acute renal failure and generalized fluid overload/anasarca as well as possible malignant ascites -Bedside paracentesis yesterday with 50cc of jose luis fluid; pending TP and albumin for determination of etiology ascites -cell count and diff is consistent with SBP, continue meropenem and albumin -Consider NGT feeds if patient is unable to tolerate PO -No overt signs of bleeding (melena/hematochezia/hematemesis) -Anemia/Thrombocytopenia likely secondary to chemotherapeutic agents; Patient was receiving chemotherapy on combination gemcitabine and abraxane -Pending repeat abdominal flat plate -Continue PO vancomycin for cdiff colitis -Continue antibiotic management for bacteremia/cystitis as per ID recommendations -Abd US reviewed; extensive ascites -Abdominal flat plate reviewed -CT Chest/Abdomen/Pelvis reviewed -Continue medical management as per ICU team -Will continue to follow and make recommendations as indicated Patient seen and case discussed with attending, Dr. Klein <Sherif Klein - Last Filed: 05/11/16 15:07> Objective - Vital Signs/Intake and Output Vital Signs (last 24 hours): Temp Pulse Resp BP Pulse Ox 97.4 F L 105 H 25 H 140/55 L 100 05/11/16 12:00 05/11/16 12:00 05/11/16 12:00 05/11/16 12:00 05/11/16 12:00 Intake and Output: 05/11/16 05/11/16 06:59 18:59 Intake Total 400 Output Total 1150 Balance -750 - Medications Medications: Current Medications Albumin Human (Albumin Human 25% (25 Gm/100 Ml)) 25 gm IV Q6 WIL Stop: 05/11/16 18:01 Last Admin: 05/11/16 12:44 Dose: 25 gm Albumin Human (Albumin Human 25% (12.5 Gm/50 Ml)) 12.5 gm IV Q1H WIL Stop: 05/12/16 16:01 Albuterol/Ipratropium (Duoneb 3 Mg/0.5 Mg (3 Ml) Ud) 3 ml IH [id number] PRN PRN Reason: Shortness Of Breath Budesonide (Pulmicort Respules) 0.5 mg IH [id number] WIL Last Admin: 05/11/16 07:00 Dose: 0.5 mg Chlordiazepoxide (Librium) 25 mg PO Q8 PRN; Protocol PRN Reason: Agitation Last Admin: 05/06/16 05:15 Dose: 25 mg Meropenem 1 gm/ Sodium (Chloride) 100 mls @ 100 mls/hr IVPB Q12 WIL PRN Reason: Protocol Stop: 05/14/16 11:31 Last Admin: 05/11/16 10:03 Dose: 100 mls/hr Dextrose (Dextrose 5% In Water 1000 Ml) 1,000 mls @ 150 mls/hr IV .Q6H40M [facility] Last Admin: 05/11/16 14:31 Dose: 150 mls/hr Famotidine (Pepcid 20mg/50ml Premix) 50 mls @ 100 mls/hr IVPB DAILY [facility] Insulin Human Lispro (Humalog Low) 0 units SC ACHS WIL PRN Reason: Protocol Last Admin: 05/11/16 11:39 Dose: Not Given Levalbuterol HCl (Xopenex) 1.25 mg IH TIDRESP [facility] Last Admin: 05/11/16 13:10 Dose: 1.25 mg Saliva Substitute (Saliva Substitute) 0 ml PO 5XD PRN PRN Reason: DRY MOUTH Vancomycin HCl (Vancocin 25 Mg/Ml (Oral Use)) 125 mg PO QID WIL PRN Reason: Protocol Last Admin: 05/11/16 13:10 Dose: 125 mg - Labs Labs: 05/11/16 05:40 05/11/16 05:40 PT 11.4 Seconds (9.9-11.8) 05/08/16 08:30 INR 1.06 (0.93-1.08) 05/08/16 08:30 APTT 30.0 Seconds (23.7-30.8) 05/08/16 08:30 Attending/Attestation - Attestation I have personally seen and examined this patient.: Yes I have fully participated in the care of the patient.: Yes I have reviewed all pertinent clinical information, including history, physical exam and plan: Yes Notes (Text): 05/11/16 15:02 I have seen and examined patient with medical surgical tech and GI fellow. Patient remains in ICU critical care and is seen resting comfortably on BIPAP therapy, denies abdominal pain, nausea, vomiting, fever/chills. Review of vitals from today shows tachycardia. Pancreatic and bladder CA Acute renal insufficiency HTN / DM C-difficile colitis Ascites (etiology unclear) s/p diagnostic paracentesis Sepsis - spontaneous bacterial peritonitis - Continue with antibiotic therapy as per ID. Continue with albumin therapy for treatment of SBP. - Creatinine rising, follow up renal recommendations. Possible change to D5W given hypernatremia. - Abdomen markedly distended, follow up abdominal XR results - H/H stable without signs of overt bleeding, continue to monitor - No contraindication to beginning enteral feeding. If patient fails swallow evaluation, caution with NGT placement given thrombocytopenia. - Overall prognosis for patient remains poor. Will continue to monitor clinical course.
--- NOTE | 2016-05-11 09:06 | PN ---
DATE: 05/11/2016 I see him in the intensive care unit. He is extubated. He is aware. He is weak. Talking a little bit. Oxygen on via Ventimask. He has had a paracentesis; they did not get off much fluid. He has b een extubated. MEDICATIONS: He is on albumin, DuoNeb, insulin, Librium, Merrem IV, Pepcid, Pulmicort, saliva, IVs f luids, vancomycin and Xopenex. He has numerous consults for numerous problems. He has cardiology, palliative care, renal, oncology, infectious disease, urology, pulmonology, GI and surgery. He has numerous issues. PHYSICAL EXAMINATION: VITAL SIGNS: 97.8 temp, 104 pulse, 152/73 blood pressure, 20 respiratory rate, 100% O2 sat. HEAD: Atraumatic, normocephalic. He kind of stares, talks sluggishly. Throat is moist. NECK: Supple. HEART: Regular rate. LUNGS: Decreased breath sounds bilaterally, poor inspiration. ABDOMEN: Morbidly obese. He feels very distended and ascites, but there was nothing from paracentes is. EXTREMITIES: Have trace edema. SKIN: For the most part is intact. EXTREMITIES: He is very weak. We gave him a range of motion manipulation to his cervical, thoracic and lumbar spine which I think g ave him a little bit of comfort. I have been having multiple conversations with the . She is de manding that we give him IV infusion of vitamin C. I discussed this with Dr. Vitale in the pharmacy. They agree that if they bring in the bag to be infused that we will infuse it for them as a home med ication. They will have to sign papers stating that. They understand that we do not know how this i s going to respond and any problems from this infusion we are not held liable. She understood that a nd she would sign it. But now this doctor that has that medication is away on vacation and she canno t get it. Now she is demanding that I write prescriptions for it. I will not do that; I do not know this medication. She is very belligerent. I have had numerous conversations with her. But we will continue to try and take care of the patient. ASSESSMENT: He has numerous and multiple severe problems. He is in the intensive care unit. He has severe sepsis, acute renal failure; ventilator-dependent respiratory failure, now he is off the vent ilator; pyelonephritis, he had a paracentesis, Clostridium difficile diarrhea, besides pancreatic can cer, status post chemotherapy and radiation. Will continue with aggressive treatment and care. Will check his labs tomorrow. Melquiades Dorsey DO cc: [id number] TT: 05/11/2016 09:05:55 Confirmation # [id number] Dictation # [id number] mn
--- NOTE | 2016-05-11 09:17 | PN ---
DATE: 05/11/2016 The patient seen and examined at bedside. He is comfortable. He is on BiPAP. He is not in respiratory or otherwise distress. The patient is on BiPAP 12/6/35 % FiO2. On that setting, his oxygen saturation 99%, respiratory rate 19-24, heart rate 109, blood pressure 160/74. The patient does not use accessory muscles to breathe and pretty comfortable. PHYSICAL EXAMINATION: HEAD AND NECK: Atraumatic. LUNGS: Few rhonchi bilaterally. HEART: Regular rate and rhythm. S1, S2 normal. ABDOMEN: Soft, nontender, nondistended, but obese. MUSCULOSKELETAL: 2+ bilateral pedal and ankle edema. NEUROLOGIC: The patient moves all extremities spontaneously. SKIN: Moist. PSYCHIATRIC: The patient is alert and oriented x 3. LABORATORIES: WBC 6.7, hemoglobin 8.3, platelet count 74. Sodium 157, potassium 3.7, chloride 118, creatinine 2.9, AST 18, ALT 21, albumin 2.9, calcium 6.6. His paracentesis revealed WBC 6102 with 90% neutrophils. Culture , however, was negative. INR 1.06, PTT 30. MEDICATIONS: DuoNeb every 6 p.r.n., albumin, regular insulin sliding scale low protocol, Librium, meropenem, Pepcid, Pulmicort, normal saline 100 mL per hour ( on hold), vancomycin p.o., Xopenex. ASSESSMENT AND PLAN: This is a 65-year-old gentleman with severe sepsis, secondary to spontaneous bacterial peritonitis and cystitis, currently on meropenem. His blood culture drawn through indwelling IV catheter is negative after more than 24 hours observation despite the first culture drawn from the same catheter showed Klebsiella. There is no available data at present time which would allow differentiate primary bacteremia due to UTI from catheter related one, however latter one would be unlikely source for GNR bacteremia . If BC from IV indwelling catheter remains negative and patient continue to improve, I wouldnt push for removal of indwelling catheter, but will defer this decision to ID service. The patient was successfully extubated, hemodynamically stable, does not have leukocytosis or leukopenia and is afebrile. The patient is on BiPAP and FIO2 tapered down substantially to 35% from 50%. Hypernatremia is concerning. We will see if any of the medication which are on normal saline as a diluent can be switched to D5W as a diluent. I will continue with conservative fluid management with gentle diuresis, however, will encourage free water oral intake to maintain balance between optimization of his respiratory status and regimen as well as avoiding kidney hypoperfusion while at the same time correcting his hypernatremia. I would continue with deep venous thrombosis and gastrointestinal prophylaxis, head of bed elevated more than 35 degrees. I would continue with ID followup and broad-spectrum antibiotics. We will taper his noninvasive positive pressure ventilation to high flow at some point today. Would continue to target euvolemia, euglycemia, normothermia and oxygen saturation more than 90%. Addendum: patient tried oral free water, but was suspiciously coughing during attempts even though passed swallow study yesterday. Discussed with nephro (Dr. Toribio)--will hold lasix, will start D5W, will repeat paracenthesis ( mechanical diuresis) and repeat BMP ccm time 40 min Guanaco Leal MD cc: [id number] TT: 05/11/2016 09:16:27 Confirmation # [id number] Dictation # [id number] en MTDD
[2016-05-11] MEDS: Insulin Lispro (humaLOG) LOW Coverage SC SCH ×5 (09:42→21:30)
[2016-05-11] MEDS: Meropenem 1 GM in Sodium Chloride 0.9% 100 ML IVPB SCH ×2 (10:03→23:00)
[2016-05-11] MEDS: Vancomycin 25 MG/ML PO SCH ×4 (10:04→23:47)
--- NOTE | 2016-05-11 10:44 | RAD ---
HISTORY: f/u COMPARISON: No prior. FINDINGS: LUNGS: No active pulmonary disease. PLEURA: No significant pleural effusion identified, no pneumothorax apparent. CARDIOVASCULAR: Normal. OSSEOUS STRUCTURES: No significant abnormalities. VISUALIZED UPPER ABDOMEN: Normal. OTHER FINDINGS: None. IMPRESSION: No active disease.
--- NOTE | 2016-05-11 11:16 | PN ---
DATE: 05/11/2016 The patient is on BiPAP. He remains dyspneic. PHYSICAL EXAMINATION: VITAL SIGNS: Blood pressure is 145/81, the heart rate is 100. NECK: Negative JVD. LUNGS: Bilateral rhonchi. HEART: Revealed S1, S2. EXTREMITIES: Without change. LABORATORIES: Hemoglobin is 8.3. Sodium is 157. Repeat echocardiogram reveals good overall LV function. No valvular vegetations are seen. IMPRESSION: 1. Pancreatic cancer. 2. Respiratory failure. 3. Diabetes mellitus. 4. Renal insufficiency. Given these findings, the patient's prognosis is poor. Will continue supportive care. Horacio Rogel MD cc: [phone] TT: 05/11/2016 11:16:05 Confirmation # [id number] Dictation # [id number] mn
[2016-05-11] MEDS: Famotidine 20mg/50ml 50 ML IVPB SCH (11:34)
--- NOTE | 2016-05-11 11:40 | CP.PCM.PN ---
Subjective - Date & Time of Evaluation Date of Evaluation: 05/11/16 Time of Evaluation: 11:38 - Subjective Subjective: Surgery: Dr. Valencia Pt seen and examined. On bipap, unable to speak in full sentences. No acute events overnight Objective - Vital Signs/Intake and Output Vital Signs (last 24 hours): Temp Pulse Resp BP Pulse Ox 97.1 F L 104 H 23 154/80 H 100 05/11/16 08:00 05/11/16 11:00 05/11/16 11:00 05/11/16 11:00 05/11/16 11:00 Intake and Output: 05/11/16 05/11/16 06:59 18:59 Intake Total 400 Output Total 1150 Balance -750 - Medications Medications: Current Medications Albumin Human (Albumin Human 25% (25 Gm/100 Ml)) 25 gm IV Q6 WIL Stop: 05/11/16 18:01 Last Admin: 05/11/16 07:00 Dose: 25 gm Albumin Human (Albumin Human 25% (12.5 Gm/50 Ml)) 12.5 gm IV Q1H [facility]IL Stop: 05/12/16 16:01 Albuterol/Ipratropium (Duoneb 3 Mg/0.5 Mg (3 Ml) Ud) 3 ml IH [id number] PRN PRN Reason: Shortness Of Breath Budesonide (Pulmicort Respules) 0.5 mg IH [id number] [facility]IL Last Admin: 05/11/16 07:00 Dose: 0.5 mg Chlordiazepoxide (Librium) 25 mg PO Q8 PRN; Protocol PRN Reason: Agitation Last Admin: 05/06/16 05:15 Dose: 25 mg Meropenem 1 gm/ Sodium (Chloride) 100 mls @ 100 mls/hr IVPB Q12 [facility]IL PRN Reason: Protocol Stop: 05/14/16 11:31 Last Admin: 05/11/16 10:03 Dose: 100 mls/hr Famotidine (Pepcid 20mg/50ml Premix) 50 mls @ 100 mls/hr IVPB Q12 [facility] Last Admin: 05/11/16 11:34 Dose: 100 mls/hr Sodium Chloride (Sodium Chloride 0.9%) 1,000 mls @ 100 mls/hr IV .Q10H [facility] Last Admin: 05/10/16 09:40 Dose: 100 mls/hr Insulin Human Lispro (Humalog Low) 0 units SC ACHS [facility]IL PRN Reason: Protocol Last Admin: 05/11/16 09:42 Dose: Not Given Levalbuterol HCl (Xopenex) 1.25 mg IH TIDRESP [facility] Last Admin: 05/11/16 07:00 Dose: 1.25 mg Saliva Substitute (Saliva Substitute) 0 ml PO 5XD PRN PRN Reason: DRY MOUTH Vancomycin HCl (Vancocin 25 Mg/Ml (Oral Use)) 125 mg PO QID [facility]IL PRN Reason: Protocol Last Admin: 05/11/16 10:04 Dose: 125 mg - Labs Labs: 05/11/16 05:40 05/11/16 05:40 PT 11.4 Seconds (9.9-11.8) 05/08/16 08:30 INR 1.06 (0.93-1.08) 05/08/16 08:30 APTT 30.0 Seconds (23.7-30.8) 05/08/16 08:30 - Constitutional Appears: Chronically Ill - Head Exam Head Exam: ATRAUMATIC - Eye Exam Eye Exam: EOMI - ENT Exam ENT Exam: Mucous Membranes Dry - Neck Exam Neck Exam: Full ROM - Respiratory Exam Respiratory Exam: Prolonged Expiratory Phase (unable to speak full sentences) - GI/Abdominal Exam GI & Abdominal Exam: Distended, Firm. absent: Guarding, Rigid, Soft, Tenderness - Extremities Exam Extremities Exam: Pedal Edema. absent: Calf Tenderness - Neurological Exam Neurological Exam: Alert, Awake Assessment and Plan - Assessment and Plan (Free Text) Assessment: 65M w. bacteremia w. portacath as possible source -will plan for OR on Saturday for portacath removal -c/w current medical management -will d/w attending Zemaitis PGY2
--- NOTE | 2016-05-11 13:25 | CP.CCUPN ---
<Rocío Chavez - Last Filed: 05/11/16 14:44> CCU Subjective - Physician Review Subjective (Free Text): PGY-1 ICU progress note. Patient seen and evaluated at bedside. Nurse reports no acute events overnight. Patient was on BIPAP 02/06/ 35% overnight, he is saturating well. Yesterday evening urologist placed new lu catheter. Urine output overnight was 1050cc. This morning pt was no able to tolerate PO water. 05/11/16 13:23 CCU Objective - Vital Signs / Intake & Output Vital Signs (Last 4 hours): Vital Signs Temp Pulse Resp BP Pulse Ox 05/11/16 12:00 97.4 F L 105 H 25 H 140/55 L 100 05/11/16 11:00 104 H 23 154/80 H 100 05/11/16 10:45 108 H 22 164/90 H 100 05/11/16 10:30 104 H 20 145/79 99 05/11/16 10:15 103 H 34 H 149/90 100 05/11/16 10:05 100 H 05/11/16 10:00 104 H 20 144/76 100 05/11/16 09:45 102 H 20 123/74 100 05/11/16 09:30 107 H 21 154/77 H 100 Intake and Output (Last 8hrs): Intake & Output 05/10/16 05/11/16 05/11/16 22:59 06:59 14:59 Intake Total 1440 400 Output Total 650 1150 Balance 790 -750 Weight 118.252 kg Intake: IV 650 200 port 650 pepcid 100 merrem 100 Oral 480 Blood Product 300 Red Blood Cells Cpd As1 300 Lr Unit [id number] Albumin 200 Other 10 Red Blood Cells Cpd As1 10 Lr Unit [id number] Output: Urine 650 1150 Urethral (Lu) 650 1150 Other: Voiding Method Indwelling Catheter # Bowel Movements 1 - Physical Exam Head: Positive for: Atraumatic, Normocephalic Pupils: Positive for: PERRL Extroacular Muscles: Positive for: EOMI Conjunctiva: Positive for: Normal Mouth: Positive for: Dry Respiratory/Chest: Positive for: Clear to Auscultation, Good Air Exchange, Decreased Breath Sounds. Negative for: Respiratory Distress, Accessory Muscle Use, Rales, Rhonchi Cardiovascular: Positive for: Normal S1, S2, Tachycardic Abdomen: Positive for: Distention, Normal Bowel Sounds. Negative for: Tenderness, Peritoneal Signs, Rebound, Guarding, Mass/Organomegaly Genitourinary Male: Positive for: Other (Lu in place.) Upper Extremity: Positive for: Normal Inspection. Negative for: Cyanosis, Edema Lower Extremity: Positive for: Normal Inspection, Edema Neurological: Positive for: GCS=15, CN II-XII Intact Skin: Positive for: Warm, Dry, Pale, Other (Chronic venous stasis dermatitis changes to b/l lower extremities). Negative for: Rashes Psychiatric: Positive for: Alert, Oriented x 3 - Medications Active Medications: Active Medications Generic Name Dose Route Start Last Admin Trade Name Freq PRN Reason Stop Dose Admin Albumin Human 25 gm 05/10/16 00:00 05/11/16 12:44 Albumin Human 25% (25 Gm/100 Ml) IV 05/11/16 18:01 25 gm Q6 WIL Administration Albumin Human 12.5 gm 05/12/16 08:00 Albumin Human 25% (12.5 Gm/50 Ml) IV 05/12/16 16:01 Q1H WIL Albuterol/Ipratropium 3 ml 05/08/16 09:41 Duoneb 3 Mg/0.5 Mg (3 Ml) Ud IH [id number] PRN Shortness Of Breath Budesonide 0.5 mg 05/07/16 20:00 05/11/16 07:00 Pulmicort Respules IH 0.5 mg [id number] WIL Administration Chlordiazepoxide 25 mg 04/29/16 11:52 05/06/16 05:15 Librium PO 25 mg Q8 PRN Administration Agitation Protocol Meropenem 1 gm/ Sodium 100 mls @ 100 mls/hr 04/30/16 11:30 05/11/16 10:03 Chloride IVPB 05/14/16 11:31 100 mls/hr Q12 WIL Administration Protocol Famotidine 50 mls @ 100 mls/hr 04/30/16 22:00 05/11/16 11:34 Pepcid 20mg/50ml Premix IVPB 100 mls/hr Q12 WIL Administration Sodium Chloride 1,000 mls @ 100 mls/hr 05/10/16 09:30 05/10/16 09:40 Sodium Chloride 0.9% IV 100 mls/hr .Q10H WIL Administration Insulin Human Lispro 0 units 04/29/16 11:30 05/11/16 11:39 Humalog Low SC Not Given ACHS [facility] Protocol Levalbuterol HCl 1.25 mg 05/08/16 08:00 05/11/16 13:10 Xopenex IH 1.25 mg TIDRESP WIL Administration Saliva Substitute 0 ml 04/30/16 14:00 Saliva Substitute PO 5XD PRN DRY MOUTH Vancomycin HCl 125 mg 05/01/16 10:00 05/11/16 13:10 Vancocin 25 Mg/Ml (Oral Use) PO 125 mg QID WIL Administration Protocol - Patient Studies Lab Studies: Microbiology Studies 05/09/16 14:15 Anaerobic Culture - Final Abdominal Fluid NO ANAEROBES ISOLATED. Fungal Culture - Preliminary 05/09/16 10:18 Blood Culture - Preliminary Blood-Thru Central Line NO GROWTH AFTER 48 HOURS 05/09/16 10:18 Blood Culture - Preliminary Blood-Thru Central Line NO GROWTH AFTER 48 HOURS 05/09/16 14:15 Gram Stain - Final Abdominal Fluid Body Fluid Culture - Preliminary NO GROWTH AFTER 24 HOURS Lab Studies 05/11/16 05/11/16 05/10/16 Range/Units 05:40 05:25 21:35 WBC 6.7 D (4.5-11.0) 10^3/ul RBC 2.89 L (3.5-6.1) 10^6/uL Hgb 8.3 L (14.0-18.0) gm/dL Hct 25.6 L (42.0-52.0) % MCV 88.6 (80.0-105.0) fL MCH 28.7 (25.0-35.0) pg MCHC 32.4 (31.0-37.0) g/dl RDW 17.8 H (11.5-14.5) % Plt Count 74 L (120.0-450.0) 10^3/uL MPV 11.6 H (7.0-11.0) fl pCO2 37 (35-45) mm/Hg pO2 161.0 H (80-100) mm/Hg HCO3 20.4 L (21-28) mmol/L ABG pH 7.35 (7.35-7.45) ABG Total CO2 21.5 L (22-28) mmol.L ABG O2 Saturation 99.3 H (95-98) % ABG O2 Content 14.9 L (15-23) ML/dl ABG Base Excess -4.7 L (-2.0-3.0) mmol/L ABG Hemoglobin 10.7 L (11.7-17.4) g/dL ABG Carboxyhemoglobin 1.6 H (0.5-1.5) % POC ABG HHb (Measured) 0.7 (0-5) % ABG Methemoglobin 1.2 (0.0-3.0) % ABG O2 Capacity 15.0 L (16-24) mL/dl Hgb O2 Saturation 96.6 (95.0-98.0) % FiO2 50.0 % Sodium 157 H* (132-148) mmol/L Potassium 3.7 (3.6-5.0) mmol/L Chloride 118 H (98-107) mmol/L Carbon Dioxide 23 (21-33) mmol/L Anion Gap 20 (10-20) BUN 94 H (7-21) mg/dL Creatinine 2.9 H (0.5-1.4) mg/dL Est GFR ( Amer) 26 Est GFR (Non-Af Amer) 22 POC Glucose (mg/dL) 152 H (65-110) mg/dL Random Glucose 139 H (70-110) mg/dL Calcium 6.6 L* (8.4-10.5) mg/dL Magnesium 2.0 (1.7-2.2) mg/dL Total Bilirubin 0.7 (0.2-1.3) mg/dL AST 18 (15-59) U/L ALT 21 (7-56) U/L Alkaline Phosphatase 128 (38-133) U/L Total Protein 6.7 (5.8-8.3) g/dL Albumin 2.9 L (3.0-4.8) g/dL Globulin 3.8 gm/dL Albumin/Globulin Ratio 0.8 L (1.1-1.8) Stool Occult Blood (NEGATIVE) Blood Type Antibody Screen Crossmatch BBK History Checked 05/10/16 05/10/16 05/10/16 Range/Units 20:23 18:37 16:07 WBC 9.8 D (4.5-11.0) 10^3/ul RBC 3.46 L (3.5-6.1) 10^6/uL Hgb 10.1 L (14.0-18.0) gm/dL Hct 30.4 L (42.0-52.0) % MCV 87.9 (80.0-105.0) fL MCH 29.2 (25.0-35.0) pg MCHC 33.2 (31.0-37.0) g/dl RDW 17.5 H (11.5-14.5) % Plt Count 82 L (120.0-450.0) 10^3/uL MPV 11.7 H (7.0-11.0) fl pCO2 (35-45) mm/Hg pO2 (80-100) mm/Hg HCO3 (21-28) mmol/L ABG pH (7.35-7.45) ABG Total CO2 (22-28) mmol.L ABG O2 Saturation (95-98) % ABG O2 Content (15-23) ML/dl ABG Base Excess (-2.0-3.0) mmol/L ABG Hemoglobin (11.7-17.4) g/dL ABG Carboxyhemoglobin (0.5-1.5) % POC ABG HHb (Measured) (0-5) % ABG Methemoglobin (0.0-3.0) % ABG O2 Capacity (16-24) mL/dl Hgb O2 Saturation (95.0-98.0) % FiO2 % Sodium 154 H (132-148) mmol/L Potassium 3.9 (3.6-5.0) mmol/L Chloride 117 H (98-107) mmol/L Carbon Dioxide 21 (21-33) mmol/L Anion Gap 20 (10-20) BUN 97 H (7-21) mg/dL Creatinine 2.8 H (0.5-1.4) mg/dL Est GFR ( Amer) 27 Est GFR (Non-Af Amer) 23 POC Glucose (mg/dL) 199 H (65-110) mg/dL Random Glucose 181 H (70-110) mg/dL Calcium 6.4 L* (8.4-10.5) mg/dL Magnesium (1.7-2.2) mg/dL Total Bilirubin 0.9 (0.2-1.3) mg/dL AST 24 (15-59) U/L ALT 17 (7-56) U/L Alkaline Phosphatase 182 H (38-133) U/L Total Protein 6.6 (5.8-8.3) g/dL Albumin 2.6 L (3.0-4.8) g/dL Globulin 4.0 gm/dL Albumin/Globulin Ratio 0.7 L (1.1-1.8) Stool Occult Blood Negative (NEGATIVE) Blood Type Antibody Screen Crossmatch BBK History Checked 05/10/16 05/10/16 05/10/16 Range/Units 11:08 11:03 07:17 WBC (4.5-11.0) 10^3/ul RBC (3.5-6.1) 10^6/uL Hgb (14.0-18.0) gm/dL Hct (42.0-52.0) % MCV (80.0-105.0) fL MCH (25.0-35.0) pg MCHC (31.0-37.0) g/dl RDW (11.5-14.5) % Plt Count (120.0-450.0) 10^3/uL MPV (7.0-11.0) fl pCO2 (35-45) mm/Hg pO2 (80-100) mm/Hg HCO3 (21-28) mmol/L ABG pH (7.35-7.45) ABG Total CO2 (22-28) mmol.L ABG O2 Saturation (95-98) % ABG O2 Content (15-23) ML/dl ABG Base Excess (-2.0-3.0) mmol/L ABG Hemoglobin (11.7-17.4) g/dL ABG Carboxyhemoglobin (0.5-1.5) % POC ABG HHb (Measured) (0-5) % ABG Methemoglobin (0.0-3.0) % ABG O2 Capacity (16-24) mL/dl Hgb O2 Saturation (95.0-98.0) % FiO2 % Sodium (132-148) mmol/L Potassium (3.6-5.0) mmol/L Chloride (98-107) mmol/L Carbon Dioxide (21-33) mmol/L Anion Gap (10-20) BUN (7-21) mg/dL Creatinine (0.5-1.4) mg/dL Est GFR ( Amer) Est GFR (Non-Af Amer) POC Glucose (mg/dL) 169 H 193 H (65-110) mg/dL Random Glucose (70-110) mg/dL Calcium (8.4-10.5) mg/dL Magnesium (1.7-2.2) mg/dL Total Bilirubin (0.2-1.3) mg/dL AST (15-59) U/L ALT (7-56) U/L Alkaline Phosphatase (38-133) U/L Total Protein (5.8-8.3) g/dL Albumin (3.0-4.8) g/dL Globulin gm/dL Albumin/Globulin Ratio (1.1-1.8) Stool Occult Blood (NEGATIVE) Blood Type A POSITIVE Antibody Screen Negative Crossmatch See Detail BBK History Checked Patient has bt Laboratory Results - last 24 hr 05/10/16 05/10/16 05/10/16 07:17 11:03 11:08 WBC RBC Hgb Hct MCV MCH MCHC RDW Plt Count MPV pCO2 pO2 HCO3 ABG pH ABG Total CO2 ABG O2 Saturation ABG O2 Content ABG Base Excess ABG Hemoglobin ABG Carboxyhemoglobin POC ABG HHb (Measured) ABG Methemoglobin ABG O2 Capacity Hgb O2 Saturation FiO2 Sodium Potassium Chloride Carbon Dioxide Anion Gap BUN Creatinine Est GFR ( Amer) Est GFR (Non-Af Amer) POC Glucose (mg/dL) 193 H 169 H Random Glucose Calcium Magnesium Total Bilirubin AST ALT Alkaline Phosphatase Total Protein Albumin Globulin Albumin/Globulin Ratio Stool Occult Blood Blood Type A POSITIVE Antibody Screen Negative Crossmatch See Detail BBK History Checked Patient has bt 05/10/16 05/10/16 05/10/16 16:07 18:37 20:23 WBC 9.8 D RBC 3.46 L Hgb 10.1 L Hct 30.4 L MCV 87.9 MCH 29.2 MCHC 33.2 RDW 17.5 H Plt Count 82 L MPV 11.7 H pCO2 pO2 HCO3 ABG pH ABG Total CO2 ABG O2 Saturation ABG O2 Content ABG Base Excess ABG Hemoglobin ABG Carboxyhemoglobin POC ABG HHb (Measured) ABG Methemoglobin ABG O2 Capacity Hgb O2 Saturation FiO2 Sodium 154 H Potassium 3.9 Chloride 117 H Carbon Dioxide 21 Anion Gap 20 BUN 97 H Creatinine 2.8 H Est GFR ( Amer) 27 Est GFR (Non-Af Amer) 23 POC Glucose (mg/dL) 199 H Random Glucose 181 H Calcium 6.4 L* Magnesium Total Bilirubin 0.9 AST 24 ALT 17 Alkaline Phosphatase 182 H Total Protein 6.6 Albumin 2.6 L Globulin 4.0 Albumin/Globulin Ratio 0.7 L Stool Occult Blood Negative Blood Type Antibody Screen Crossmatch BBK History Checked 05/10/16 05/11/16 05/11/16 21:35 05:25 05:40 WBC 6.7 D RBC 2.89 L Hgb 8.3 L Hct 25.6 L MCV 88.6 MCH 28.7 MCHC 32.4 RDW 17.8 H Plt Count 74 L MPV 11.6 H pCO2 37 pO2 161.0 H HCO3 20.4 L ABG pH 7.35 ABG Total CO2 21.5 L ABG O2 Saturation 99.3 H ABG O2 Content 14.9 L ABG Base Excess -4.7 L ABG Hemoglobin 10.7 L ABG Carboxyhemoglobin 1.6 H POC ABG HHb (Measured) 0.7 ABG Methemoglobin 1.2 ABG O2 Capacity 15.0 L Hgb O2 Saturation 96.6 FiO2 50.0 Sodium 157 H* Potassium 3.7 Chloride 118 H Carbon Dioxide 23 Anion Gap 20 BUN 94 H Creatinine 2.9 H Est GFR ( Amer) 26 Est GFR (Non-Af Amer) 22 POC Glucose (mg/dL) 152 H Random Glucose 139 H Calcium 6.6 L* Magnesium 2.0 Total Bilirubin 0.7 AST 18 ALT 21 Alkaline Phosphatase 128 Total Protein 6.7 Albumin 2.9 L Globulin 3.8 Albumin/Globulin Ratio 0.8 L Stool Occult Blood Blood Type Antibody Screen Crossmatch BBK History Checked Fingerstick Blood Sugar Results: 146 Critical Care Progress Note - Nutrition Nutrition: Nutrition Category Date Time Status Dysphagia/Modified Consistency Diet [DIET] Diets 05/10/16 Dinner Ordered Assessment/Plan - Assessment and Plan (Free Text) Assessment: 65 y/o M with PMH of Pancreatic Cancer, Bladder Cancer, HTN, and DM presents the ICU with hypoxmic respiratory failure 2/2 severe sepsis 2/2 SBP s/p extubation currently on bipap. Repeat blood cultures are negative. He received 1 unit pRBC yesterday per Dr. Atkinson. Plan: Neuro: - lethergic - extubated yesterday - Head CT (05/07/16) shows right frontoparietal encephalomalacia. Acute on chronic infarction cannot be excluded. - Monitor for acute mental status change Cardio: - Hemodynamically stable - Keep MAP >65 - Initial Echocardiogram shows normal EF with no vegetations - Cardiology following Pulm: - extubated yesterday - currently on bipap - CXR today showed no active disease - CXR from 05/08/16 demonstrates bibasilar atelectasis - removing acsites fluid may improve breathing - Continue to keep O2 sat >90% - Pulmonology, Dr. Lino following GI: - Paracentesis performed earlier this week removed about 50cc - consider repeat paracentesis - significant for SBP - ascites fluid culture is negative after 24 hours - on meropenum and vanco - C. diff antigen positive - GI prophylaxis - pt is not tolerating PO water, will reevaluate speech and swallow - consider NG tube - GI following, Dr. Zavala Nephro: - hypernatremia - pt unable to tolerate PO free water intake - start D5W at 150 cc - consider NG tube - Creatinine is stable - Adequate urine output - Hold IVF due to SOB - Maintain euvolemia - Strict I's and O's - Replete electrolytes as needed - Nephrology consulted, Dr. Shahid ID/Heme: - Afebrile, leukopenic this morning - repeat Urine and blood cultures negative at this time - C. diff antigen - Continue Merrem and vancomycin as per ID - Surgery following for port removal, which is possible source of infection - ID consulted, Dr. Erickson - Maintain normothermia - 1 unit PRBCs transferred yesterday, AM Hg is 8.3 and platelets low - Continue to transfuse to keep Hg above 7 Endo: - Insulin sliding scale - Check glucose levels q6h - Maintain euglycemia Seen, reviewed, and discussed with attending <Guanaco Leal - Last Filed: 05/11/16 17:34> CCU Objective - Vital Signs / Intake & Output Vital Signs (Last 4 hours): Vital Signs Temp Pulse Resp BP Pulse Ox 05/11/16 16:45 109 H 05/11/16 16:00 98.5 F 98 H 18 100 05/11/16 15:00 102 H 18 128/65 100 05/11/16 14:00 109 H 22 148/79 99 Intake and Output (Last 8hrs): Intake & Output 05/11/16 05/11/16 05/11/16 06:59 14:59 22:59 Intake Total 400 Output Total 1150 Balance -750 Weight 260 lb 11.2 oz Intake: IV 200 pepcid 100 merrem 100 Albumin 200 Output: Urine 1150 Urethral (Lu) 1150 Other: Voiding Method Indwelling Catheter # Bowel Movements 1 - Medications Active Medications: Active Medications Generic Name Dose Route Start Last Admin Trade Name Freq PRN Reason Stop Dose Admin Albumin Human 25 gm 05/10/16 00:00 05/11/16 12:44 Albumin Human 25% (25 Gm/100 Ml) IV 05/11/16 18:01 25 gm Q6 WIL Administration Albumin Human 12.5 gm 05/12/16 08:00 Albumin Human 25% (12.5 Gm/50 Ml) IV 05/12/16 16:01 Q1H WIL Albuterol/Ipratropium 3 ml 05/08/16 09:41 Duoneb 3 Mg/0.5 Mg (3 Ml) Ud IH [id number] PRN Shortness Of Breath Budesonide 0.5 mg 05/07/16 20:00 05/11/16 07:00 Pulmicort Respules IH 0.5 mg [id number] WIL Administration Chlordiazepoxide 25 mg 04/29/16 11:52 05/06/16 05:15 Librium PO 25 mg Q8 PRN Administration Agitation Protocol Meropenem 1 gm/ Sodium 100 mls @ 100 mls/hr 04/30/16 11:30 05/11/16 10:03 Chloride IVPB 05/14/16 11:31 100 mls/hr Q12 WIL Administration Protocol Dextrose 1,000 mls @ 150 mls/hr 05/11/16 13:45 05/11/16 14:31 Dextrose 5% In Water 1000 Ml IV 150 mls/hr .[id number] WIL Administration Famotidine 50 mls @ 100 mls/hr 05/12/16 10:00 Pepcid 20mg/50ml Premix IVPB DAILY WIL Insulin Human Lispro 0 units 04/29/16 11:30 05/11/16 11:39 Humalog Low SC Not Given ACHS [facility] Protocol Levalbuterol HCl 1.25 mg 05/08/16 08:00 05/11/16 13:10 Xopenex IH 1.25 mg TIDRESP WIL Administration Saliva Substitute 0 ml 04/30/16 14:00 Saliva Substitute PO 5XD PRN DRY MOUTH Vancomycin HCl 125 mg 05/01/16 10:00 05/11/16 13:10 Vancocin 25 Mg/Ml (Oral Use) PO 125 mg QID WIL Administration Protocol - Patient Studies Lab Studies: Microbiology Studies 05/09/16 14:00 Urine Culture - Preliminary Urine,Lu Gram Positive Cocci 05/09/16 14:15 Gram Stain - Final Abdominal Fluid Body Fluid Culture - Preliminary NO GROWTH AFTER 2 DAYS 05/09/16 14:15 Anaerobic Culture - Final Abdominal Fluid NO ANAEROBES ISOLATED. Fungal Culture - Preliminary 05/09/16 10:18 Blood Culture - Preliminary Blood-Thru Central Line NO GROWTH AFTER 48 HOURS 05/09/16 10:18 Blood Culture - Preliminary Blood-Thru Central Line NO GROWTH AFTER 48 HOURS Lab Studies 05/11/16 05/11/16 05/11/16 Range/Units 11:30 07:49 05:40 WBC 6.7 D (4.5-11.0) 10^3/ul RBC 2.89 L (3.5-6.1) 10^6/uL Hgb 8.3 L (14.0-18.0) gm/dL Hct 25.6 L (42.0-52.0) % MCV 88.6 (80.0-105.0) fL MCH 28.7 (25.0-35.0) pg MCHC 32.4 (31.0-37.0) g/dl RDW 17.8 H (11.5-14.5) % Plt Count 74 L (120.0-450.0) 10^3/uL MPV 11.6 H (7.0-11.0) fl pCO2 (35-45) mm/Hg pO2 (80-100) mm/Hg HCO3 (21-28) mmol/L ABG pH (7.35-7.45) ABG Total CO2 (22-28) mmol.L ABG O2 Saturation (95-98) % ABG O2 Content (15-23) ML/dl ABG Base Excess (-2.0-3.0) mmol/L ABG Hemoglobin (11.7-17.4) g/dL ABG Carboxyhemoglobin (0.5-1.5) % POC ABG HHb (Measured) (0-5) % ABG Methemoglobin (0.0-3.0) % ABG O2 Capacity (16-24) mL/dl Hgb O2 Saturation (95.0-98.0) % FiO2 % Sodium 157 H* (132-148) mmol/L Potassium 3.7 (3.6-5.0) mmol/L Chloride 118 H (98-107) mmol/L Carbon Dioxide 23 (21-33) mmol/L Anion Gap 20 (10-20) BUN 94 H (7-21) mg/dL Creatinine 2.9 H (0.5-1.4) mg/dL Est GFR ( Amer) 26 Est GFR (Non-Af Amer) 22 POC Glucose (mg/dL) 146 H 122 H (65-110) mg/dL Random Glucose 139 H (70-110) mg/dL Calcium 6.6 L* (8.4-10.5) mg/dL Magnesium 2.0 (1.7-2.2) mg/dL Total Bilirubin 0.7 (0.2-1.3) mg/dL AST 18 (15-59) U/L ALT 21 (7-56) U/L Alkaline Phosphatase 128 (38-133) U/L Total Protein 6.7 (5.8-8.3) g/dL Albumin 2.9 L (3.0-4.8) g/dL Globulin 3.8 gm/dL Albumin/Globulin Ratio 0.8 L (1.1-1.8) Stool Occult Blood (NEGATIVE) Crossmatch 05/11/16 05/10/16 05/10/16 Range/Units 05:25 21:35 20:23 WBC 9.8 D (4.5-11.0) 10^3/ul RBC 3.46 L (3.5-6.1) 10^6/uL Hgb 10.1 L (14.0-18.0) gm/dL Hct 30.4 L (42.0-52.0) % MCV 87.9 (80.0-105.0) fL MCH 29.2 (25.0-35.0) pg MCHC 33.2 (31.0-37.0) g/dl RDW 17.5 H (11.5-14.5) % Plt Count 82 L (120.0-450.0) 10^3/uL MPV 11.7 H (7.0-11.0) fl pCO2 37 (35-45) mm/Hg pO2 161.0 H (80-100) mm/Hg HCO3 20.4 L (21-28) mmol/L ABG pH 7.35 (7.35-7.45) ABG Total CO2 21.5 L (22-28) mmol.L ABG O2 Saturation 99.3 H (95-98) % ABG O2 Content 14.9 L (15-23) ML/dl ABG Base Excess -4.7 L (-2.0-3.0) mmol/L ABG Hemoglobin 10.7 L (11.7-17.4) g/dL ABG Carboxyhemoglobin 1.6 H (0.5-1.5) % POC ABG HHb (Measured) 0.7 (0-5) % ABG Methemoglobin 1.2 (0.0-3.0) % ABG O2 Capacity 15.0 L (16-24) mL/dl Hgb O2 Saturation 96.6 (95.0-98.0) % FiO2 50.0 % Sodium 154 H (132-148) mmol/L Potassium 3.9 (3.6-5.0) mmol/L Chloride 117 H (98-107) mmol/L Carbon Dioxide 21 (21-33) mmol/L Anion Gap 20 (10-20) BUN 97 H (7-21) mg/dL Creatinine 2.8 H (0.5-1.4) mg/dL Est GFR ( Amer) 27 Est GFR (Non-Af Amer) 23 POC Glucose (mg/dL) 152 H (65-110) mg/dL Random Glucose 181 H (70-110) mg/dL Calcium 6.4 L* (8.4-10.5) mg/dL Magnesium (1.7-2.2) mg/dL Total Bilirubin 0.9 (0.2-1.3) mg/dL AST 24 (15-59) U/L ALT 17 (7-56) U/L Alkaline Phosphatase 182 H (38-133) U/L Total Protein 6.6 (5.8-8.3) g/dL Albumin 2.6 L (3.0-4.8) g/dL Globulin 4.0 gm/dL Albumin/Globulin Ratio 0.7 L (1.1-1.8) Stool Occult Blood (NEGATIVE) Crossmatch 05/10/16 05/10/16 05/10/16 Range/Units 18:37 16:07 11:08 WBC (4.5-11.0) 10^3/ul RBC (3.5-6.1) 10^6/uL Hgb (14.0-18.0) gm/dL Hct (42.0-52.0) % MCV (80.0-105.0) fL MCH (25.0-35.0) pg MCHC (31.0-37.0) g/dl RDW (11.5-14.5) % Plt Count (120.0-450.0) 10^3/uL MPV (7.0-11.0) fl pCO2 (35-45) mm/Hg pO2 (80-100) mm/Hg HCO3 (21-28) mmol/L ABG pH (7.35-7.45) ABG Total CO2 (22-28) mmol.L ABG O2 Saturation (95-98) % ABG O2 Content (15-23) ML/dl ABG Base Excess (-2.0-3.0) mmol/L ABG Hemoglobin (11.7-17.4) g/dL ABG Carboxyhemoglobin (0.5-1.5) % POC ABG HHb (Measured) (0-5) % ABG Methemoglobin (0.0-3.0) % ABG O2 Capacity (16-24) mL/dl Hgb O2 Saturation (95.0-98.0) % FiO2 % Sodium (132-148) mmol/L Potassium (3.6-5.0) mmol/L Chloride (98-107) mmol/L Carbon Dioxide (21-33) mmol/L Anion Gap (10-20) BUN (7-21) mg/dL Creatinine (0.5-1.4) mg/dL Est GFR ( Amer) Est GFR (Non-Af Amer) POC Glucose (mg/dL) 199 H (65-110) mg/dL Random Glucose (70-110) mg/dL Calcium (8.4-10.5) mg/dL Magnesium (1.7-2.2) mg/dL Total Bilirubin (0.2-1.3) mg/dL AST (15-59) U/L ALT (7-56) U/L Alkaline Phosphatase (38-133) U/L Total Protein (5.8-8.3) g/dL Albumin (3.0-4.8) g/dL Globulin gm/dL Albumin/Globulin Ratio (1.1-1.8) Stool Occult Blood Negative (NEGATIVE) Crossmatch See Detail 05/10/16 05/10/16 Range/Units 11:03 07:17 WBC (4.5-11.0) 10^3/ul RBC (3.5-6.1) 10^6/uL Hgb (14.0-18.0) gm/dL Hct (42.0-52.0) % MCV (80.0-105.0) fL MCH (25.0-35.0) pg MCHC (31.0-37.0) g/dl RDW (11.5-14.5) % Plt Count (120.0-450.0) 10^3/uL MPV (7.0-11.0) fl pCO2 (35-45) mm/Hg pO2 (80-100) mm/Hg HCO3 (21-28) mmol/L ABG pH (7.35-7.45) ABG Total CO2 (22-28) mmol.L ABG O2 Saturation (95-98) % ABG O2 Content (15-23) ML/dl ABG Base Excess (-2.0-3.0) mmol/L ABG Hemoglobin (11.7-17.4) g/dL ABG Carboxyhemoglobin (0.5-1.5) % POC ABG HHb (Measured) (0-5) % ABG Methemoglobin (0.0-3.0) % ABG O2 Capacity (16-24) mL/dl Hgb O2 Saturation (95.0-98.0) % FiO2 % Sodium (132-148) mmol/L Potassium (3.6-5.0) mmol/L Chloride (98-107) mmol/L Carbon Dioxide (21-33) mmol/L Anion Gap (10-20) BUN (7-21) mg/dL Creatinine (0.5-1.4) mg/dL Est GFR ( Amer) Est GFR (Non-Af Amer) POC Glucose (mg/dL) 169 H 193 H (65-110) mg/dL Random Glucose (70-110) mg/dL Calcium (8.4-10.5) mg/dL Magnesium (1.7-2.2) mg/dL Total Bilirubin (0.2-1.3) mg/dL AST (15-59) U/L ALT (7-56) U/L Alkaline Phosphatase (38-133) U/L Total Protein (5.8-8.3) g/dL Albumin (3.0-4.8) g/dL Globulin gm/dL Albumin/Globulin Ratio (1.1-1.8) Stool Occult Blood (NEGATIVE) Crossmatch Laboratory Results - last 24 hr 05/10/16 05/10/16 05/10/16 07:17 11:03 11:08 WBC RBC Hgb Hct MCV MCH MCHC RDW Plt Count MPV pCO2 pO2 HCO3 ABG pH ABG Total CO2 ABG O2 Saturation ABG O2 Content ABG Base Excess ABG Hemoglobin ABG Carboxyhemoglobin POC ABG HHb (Measured) ABG Methemoglobin ABG O2 Capacity Hgb O2 Saturation FiO2 Sodium Potassium Chloride Carbon Dioxide Anion Gap BUN Creatinine Est GFR ( Amer) Est GFR (Non-Af Amer) POC Glucose (mg/dL) 193 H 169 H Random Glucose Calcium Magnesium Total Bilirubin AST ALT Alkaline Phosphatase Total Protein Albumin Globulin Albumin/Globulin Ratio Stool Occult Blood Crossmatch See Detail 05/10/16 05/10/16 05/10/16 16:07 18:37 20:23 WBC 9.8 D RBC 3.46 L Hgb 10.1 L Hct 30.4 L MCV 87.9 MCH 29.2 MCHC 33.2 RDW 17.5 H Plt Count 82 L MPV 11.7 H pCO2 pO2 HCO3 ABG pH ABG Total CO2 ABG O2 Saturation ABG O2 Content ABG Base Excess ABG Hemoglobin ABG Carboxyhemoglobin POC ABG HHb (Measured) ABG Methemoglobin ABG O2 Capacity Hgb O2 Saturation FiO2 Sodium 154 H Potassium 3.9 Chloride 117 H Carbon Dioxide 21 Anion Gap 20 BUN 97 H Creatinine 2.8 H Est GFR ( Amer) 27 Est GFR (Non-Af Amer) 23 POC Glucose (mg/dL) 199 H Random Glucose 181 H Calcium 6.4 L* Magnesium Total Bilirubin 0.9 AST 24 ALT 17 Alkaline Phosphatase 182 H Total Protein 6.6 Albumin 2.6 L Globulin 4.0 Albumin/Globulin Ratio 0.7 L Stool Occult Blood Negative Crossmatch 05/10/16 05/11/16 05/11/16 21:35 05:25 05:40 WBC 6.7 D RBC 2.89 L Hgb 8.3 L Hct 25.6 L MCV 88.6 MCH 28.7 MCHC 32.4 RDW 17.8 H Plt Count 74 L MPV 11.6 H pCO2 37 pO2 161.0 H HCO3 20.4 L ABG pH 7.35 ABG Total CO2 21.5 L ABG O2 Saturation 99.3 H ABG O2 Content 14.9 L ABG Base Excess -4.7 L ABG Hemoglobin 10.7 L ABG Carboxyhemoglobin 1.6 H POC ABG HHb (Measured) 0.7 ABG Methemoglobin 1.2 ABG O2 Capacity 15.0 L Hgb O2 Saturation 96.6 FiO2 50.0 Sodium 157 H* Potassium 3.7 Chloride 118 H Carbon Dioxide 23 Anion Gap 20 BUN 94 H Creatinine 2.9 H Est GFR ( Amer) 26 Est GFR (Non-Af Amer) 22 POC Glucose (mg/dL) 152 H Random Glucose 139 H Calcium 6.6 L* Magnesium 2.0 Total Bilirubin 0.7 AST 18 ALT 21 Alkaline Phosphatase 128 Total Protein 6.7 Albumin 2.9 L Globulin 3.8 Albumin/Globulin Ratio 0.8 L Stool Occult Blood Crossmatch 05/11/16 05/11/16 07:49 11:30 WBC RBC Hgb Hct MCV MCH MCHC RDW Plt Count MPV pCO2 pO2 HCO3 ABG pH ABG Total CO2 ABG O2 Saturation ABG O2 Content ABG Base Excess ABG Hemoglobin ABG Carboxyhemoglobin POC ABG HHb (Measured) ABG Methemoglobin ABG O2 Capacity Hgb O2 Saturation FiO2 Sodium Potassium Chloride Carbon Dioxide Anion Gap BUN Creatinine Est GFR ( Amer) Est GFR (Non-Af Amer) POC Glucose (mg/dL) 122 H 146 H Random Glucose Calcium Magnesium Total Bilirubin AST ALT Alkaline Phosphatase Total Protein Albumin Globulin Albumin/Globulin Ratio Stool Occult Blood Crossmatch Critical Care Progress Note - Nutrition Nutrition: Nutrition Category Date Time Status Dysphagia/Modified Consistency Diet [DIET] Diets 05/10/16 Dinner Ordered Addendum Addendum: 05/11/16 17:33 patient was seen and examined at bedside with Dr. Chavez. Please see Dr. Leal note
--- NOTE | 2016-05-11 13:29 | RAD ---
HISTORY: abdominal distention COMPARISON: No prior. FINDINGS: BOWEL: Normal. No obstruction. No free air. BONES: Normal. OTHER FINDINGS: None. IMPRESSION: No active disease.
--- NOTE | 2016-05-11 14:23 | CP.PCM.CON ---
History of Present Illness - History of Present Illness History of Present Illness: Palliative consult requested by Dr Colleen Dorsey Reason: Goals of care/advance care planning 65 year old male presented to ED 04/29/16 with complaints of fatigue and lethargy. Work up revealed bacteremia, klebsiella pneumonia. He subsequently developed respiratory distress requiring intubation on 05/08. He was extubated yesterday, remains on intermittent BIPAP. His blood cultures are negative. He continues to be anemic, hypernatremic and hypocalcemic. PMHx: Pancreatic cancer, bladder cancer, HTN, DM. Family History: Non contributory. Social History:Former smoker,alcohol use, denies illicit drug use. Advance Care Planning: The patient does not have an Advance Directive. He is a full code. Review of Systems:The patient complains of dsypnea, fatigue and lethargy. All other systems negative Past Patient History - Infectious Disease Hx of Infectious Diseases: None - Past Social History Smoking Status: Former Smoker - CARDIAC Hx Hypertension: Yes - NEUROLOGICAL HX Cerebrovascular Accident: Yes (Pt. reports 27 years ago; R side) - ENDOCRINE/METABOLIC Hx Diabetes Mellitus Type 2: Yes - HEMATOLOGICAL/ONCOLOGICAL Hx Cancer: Yes (Bladder, pancreatic) - MUSCULOSKELETAL/RHEUMATOLOGICAL Hx Falls: No - GENITOURINARY/GYNECOLOGICAL Other/Comment: + Urinary Catheter - PSYCHIATRIC Hx Substance Use: No - SURGICAL HISTORY Hx Surgeries: No - ANESTHESIA Hx Anesthesia: Yes Hx Anesthesia Reactions: No Hx Malignant Hyperthermia: No Meds Allergies/Adverse Reactions: Allergies Allergy/AdvReac Type Severity Reaction Status Date / Time pcn Allergy DIZZINESS Uncoded 04/29/16 01:42 - Medications Medications: Current Medications Albumin Human (Albumin Human 25% (25 Gm/100 Ml)) 25 gm IV Q6 WIL Stop: 05/11/16 18:01 Last Admin: 05/11/16 12:44 Dose: 25 gm Albumin Human (Albumin Human 25% (12.5 Gm/50 Ml)) 12.5 gm IV Q1H [facility] Stop: 05/12/16 16:01 Albuterol/Ipratropium (Duoneb 3 Mg/0.5 Mg (3 Ml) Ud) 3 ml IH [id number] PRN PRN Reason: Shortness Of Breath Budesonide (Pulmicort Respules) 0.5 mg IH [id number] [facility] Last Admin: 05/11/16 07:00 Dose: 0.5 mg Chlordiazepoxide (Librium) 25 mg PO Q8 PRN; Protocol PRN Reason: Agitation Last Admin: 05/06/16 05:15 Dose: 25 mg Meropenem 1 gm/ Sodium (Chloride) 100 mls @ 100 mls/hr IVPB Q12 WIL PRN Reason: Protocol Stop: 05/14/16 11:31 Last Admin: 05/11/16 10:03 Dose: 100 mls/hr Dextrose (Dextrose 5% In Water 1000 Ml) 1,000 mls @ 150 mls/hr IV .Q6H40M [facility] Famotidine (Pepcid 20mg/50ml Premix) 50 mls @ 100 mls/hr IVPB DAILY [facility] Insulin Human Lispro (Humalog Low) 0 units SC ACHS WIL PRN Reason: Protocol Last Admin: 05/11/16 11:39 Dose: Not Given Levalbuterol HCl (Xopenex) 1.25 mg IH TIDRESP [facility] Last Admin: 05/11/16 13:10 Dose: 1.25 mg Saliva Substitute (Saliva Substitute) 0 ml PO 5XD PRN PRN Reason: DRY MOUTH Vancomycin HCl (Vancocin 25 Mg/Ml (Oral Use)) 125 mg PO QID WIL PRN Reason: Protocol Last Admin: 05/11/16 13:10 Dose: 125 mg Physical Exam - Constitutional Appears: Chronically Ill - Head Exam Head Exam: NORMAL INSPECTION - Eye Exam Eye Exam: Normal appearance, PERRL - ENT Exam ENT Exam: Mucous Membranes Dry, Normal Oropharynx - Neck Exam Neck exam: Positive for: Normal Inspection - Respiratory Exam Respiratory Exam: Decreased Breath Sounds, Rhonchi Additional comments: dyspnea - Cardiovascular Exam Cardiovascular Exam: Tachycardia, +S1, +S2 - GI/Abdominal Exam GI & Abdominal Exam: Distended, Normal Bowel Sounds, Soft Additional comments: ascites - Exam Additional comments: oliguria - Extremities Exam Extremities exam: Positive for: pedal pulses present Additional comments: 2+ edema of lower extremities, chronic venous stasis - Neurological Exam Neurological exam: Alert, Oriented x3 - Skin Skin Exam: Dry, Pallor - Additional Findings Additional findings: Palliative performance scale rating 40% Results - Vital Signs Recent Vital Signs: Last Vital Signs Temp 97.4 F L 05/11/16 12:00 Pulse 105 H 05/11/16 12:00 Resp 25 H 05/11/16 12:00 BP 140/55 L 05/11/16 12:00 Pulse Ox 100 05/11/16 12:00 - Labs Result Diagrams: 05/11/16 05:40 05/11/16 05:40 Labs: Laboratory Results - last 24 hr 05/10/16 05/10/16 05/10/16 07:17 11:03 11:08 WBC RBC Hgb Hct MCV MCH MCHC RDW Plt Count MPV pCO2 pO2 HCO3 ABG pH ABG Total CO2 ABG O2 Saturation ABG O2 Content ABG Base Excess ABG Hemoglobin ABG Carboxyhemoglobin POC ABG HHb (Measured) ABG Methemoglobin ABG O2 Capacity Hgb O2 Saturation FiO2 Sodium Potassium Chloride Carbon Dioxide Anion Gap BUN Creatinine Est GFR ( Amer) Est GFR (Non-Af Amer) POC Glucose (mg/dL) 193 H 169 H Random Glucose Calcium Magnesium Total Bilirubin AST ALT Alkaline Phosphatase Total Protein Albumin Globulin Albumin/Globulin Ratio Stool Occult Blood Blood Type A POSITIVE Antibody Screen Negative Crossmatch See Detail BBK History Checked Patient has bt 05/10/16 05/10/16 05/10/16 16:07 18:37 20:23 WBC 9.8 D RBC 3.46 L Hgb 10.1 L Hct 30.4 L MCV 87.9 MCH 29.2 MCHC 33.2 RDW 17.5 H Plt Count 82 L MPV 11.7 H pCO2 pO2 HCO3 ABG pH ABG Total CO2 ABG O2 Saturation ABG O2 Content ABG Base Excess ABG Hemoglobin ABG Carboxyhemoglobin POC ABG HHb (Measured) ABG Methemoglobin ABG O2 Capacity Hgb O2 Saturation FiO2 Sodium 154 H Potassium 3.9 Chloride 117 H Carbon Dioxide 21 Anion Gap 20 BUN 97 H Creatinine 2.8 H Est GFR ( Amer) 27 Est GFR (Non-Af Amer) 23 POC Glucose (mg/dL) 199 H Random Glucose 181 H Calcium 6.4 L* Magnesium Total Bilirubin 0.9 AST 24 ALT 17 Alkaline Phosphatase 182 H Total Protein 6.6 Albumin 2.6 L Globulin 4.0 Albumin/Globulin Ratio 0.7 L Stool Occult Blood Negative Blood Type Antibody Screen Crossmatch BBK History Checked 05/10/16 05/11/16 05/11/16 21:35 05:25 05:40 WBC 6.7 D RBC 2.89 L Hgb 8.3 L Hct 25.6 L MCV 88.6 MCH 28.7 MCHC 32.4 RDW 17.8 H Plt Count 74 L MPV 11.6 H pCO2 37 pO2 161.0 H HCO3 20.4 L ABG pH 7.35 ABG Total CO2 21.5 L ABG O2 Saturation 99.3 H ABG O2 Content 14.9 L ABG Base Excess -4.7 L ABG Hemoglobin 10.7 L ABG Carboxyhemoglobin 1.6 H POC ABG HHb (Measured) 0.7 ABG Methemoglobin 1.2 ABG O2 Capacity 15.0 L Hgb O2 Saturation 96.6 FiO2 50.0 Sodium 157 H* Potassium 3.7 Chloride 118 H Carbon Dioxide 23 Anion Gap 20 BUN 94 H Creatinine 2.9 H Est GFR ( Amer) 26 Est GFR (Non-Af Amer) 22 POC Glucose (mg/dL) 152 H Random Glucose 139 H Calcium 6.6 L* Magnesium 2.0 Total Bilirubin 0.7 AST 18 ALT 21 Alkaline Phosphatase 128 Total Protein 6.7 Albumin 2.9 L Globulin 3.8 Albumin/Globulin Ratio 0.8 L Stool Occult Blood Blood Type Antibody Screen Crossmatch BBK History Checked 05/11/16 05/11/16 07:49 11:30 WBC RBC Hgb Hct MCV MCH MCHC RDW Plt Count MPV pCO2 pO2 HCO3 ABG pH ABG Total CO2 ABG O2 Saturation ABG O2 Content ABG Base Excess ABG Hemoglobin ABG Carboxyhemoglobin POC ABG HHb (Measured) ABG Methemoglobin ABG O2 Capacity Hgb O2 Saturation FiO2 Sodium Potassium Chloride Carbon Dioxide Anion Gap BUN Creatinine Est GFR ( Amer) Est GFR (Non-Af Amer) POC Glucose (mg/dL) 122 H 146 H Random Glucose Calcium Magnesium Total Bilirubin AST ALT Alkaline Phosphatase Total Protein Albumin Globulin Albumin/Globulin Ratio Stool Occult Blood Blood Type Antibody Screen Crossmatch BBK History Checked Assessment & Plan - Assessment and Plan (Free Text) Assessment: 65 year old male admitted with bacteremia, pneumonia, sepsis, respiratory failure, renal insufficiency,ascites. Patient has history of advanced badder cancer as well as pancreatic cancer. He had been receiving chemotherapy at [facility] prior to this admission. Patient denies pain. He is weak dyspneic making it difficult for him to carry conversation.He denies pain. We did not have much discussion at this time due to his weakness, fatigue and shortness of breath. Plan: Continue current medical management. I will continue to meet with patient to provide psychological support and assistance with establishing future goals of care. Will also try and include patient family in this process
--- NOTE | 2016-05-11 14:32 | PN ---
DATE: 05/11/2016 SUBJECTIVE: The patient is seen in the intensive care unit. He is lying in bed at a 30 degree angle . He is lethargic, but arousable. He is unable to stay awake long enough for me to have a discussio n with him as to the goals of care. Beard catheter continues to be in place. He is not on any press ors nor on any inotropes, but is receiving albumin at a rate of 25 grams intravenously every 6 hours. He is not on any maintenance intravenous fluids. Beard catheter is draining jose luis-colored urine. OBJECTIVE: VITAL SIGNS: Blood pressure is 140/55. In the last 24-hour period, it was as low as 128/71 and as h igh as 164/90. Heart rate is 105, but has ranged from approximately 96 to as high as 108 beats per m inute in the last 24-hour period. Axillary temperature is 97.4 degrees and he has been afebrile for the last 48-hour period. Respiratory rate is 25, but has ranged from 19-36 breaths in the last 24-ho ur period. Oxygen saturation is 100%, but has ranged from 83-100%. The patient is currently on 2 li ters oxygen via nasal cannula. I's and O's in the last 24-hour period are 1800/1800. The remainder of the exam is as follows. HEENT: The patient was pale in appearance, but was normocephalic. As stated above, he was encephalo pathic. I was not able to appreciate any jugular venous distension on account of his body habitus. Conjunctivae were pale, but they were anicteric. CHEST: Lungs smith on my exam had very distant and diminished breath sounds, but diaphragmatic excu rsion and airflow through both lungs appeared to be bilaterally symmetrical. CARDIAC: Had a regular rate and rhythm without any rubs. ABDOMEN: Markedly distended, but nontender and there was no rebounding, guarding or rigidity. EXTREMITIES: Notable for the presence of 3+ edema distal to the sacrum and in fact, the patient had anasarca. NEUROLOGIC: He was arousable, but quite lethargic and encephalopathic. VASCULAR: Had no bruits. GENITOURINARY: Notable for Beard catheter in place. There was no suprapubic tenderness. Imaging is as follows: Abdominal x-ray from today does not reveal any acute pathology. Chest x-ray from today also does not demonstrate any evidence of vascular congestion or infiltrates. Culture ashwini en from the patient's paracentesis yesterday has no growth after 24 hours. Gram stain did not reveal any organisms nor any polymorphonuclear WBCs. It was noted, however, that the fluid was turbid with a white blood cell count of 6102 of which 91% were neutrophils. White count is 6.7 with an H and H of 8.3/25.6 and a platelet count of 74,000. There is no differential today. ABG had a pH of 7.35 wi th a pCO2 of 37, PaO2 of 161, and oxygen saturation 99% on an FIO2 of 50%. Sodium is 157, potassium 3.7, chloride 118, bicarbonate 23, BUN/creatinine is 94/2.9 with glucose of 139. Calcium is 6.6, but after correcting for the albumin of 2.9, it is 7.4. Blood cultures following 05/04 have all been nega tive. Those prior to 05/04 revealed Klebsiella pneumoniae bacteremia. IMPRESSION AND PLAN: The patient is a 65-year-old gentleman with a known history of hypertension ([facility] blood pressure 140/90), type 2 diabetes mellitus that is noninsulin dependent, history of blad rey cancer, also with a known history of pancreatic cancer for which he received gemcitabine as well as Abraxane and was last given on 04/13/2016, originally admitted with dark melenotic stool and noted to have acute kidney injury with lactic acidosis, rhabdomyolysis, hypocalcemia as well as anemia. Ho spitalization has been complicated by Klebseilla pneumoniae bacteremia and respiratory compromise. A dditionally, the patient did have acute kidney injury that had improved, but recurred, but once again now is improving somewhat with repositioning of the patient's Beard catheter. 1. Overall, the patient's prognosis is quite poor. He does have a known history of pancreatic cance r and additionally, he has a known history of bladder cancer as well. Imaging of his bladder (perfor med via the CT scan of his abdomen and pelvis) during this hospitalization initially revealed air wit hin the bladder as well as evidence of perforation with air outside of the bladder. More recent imag ing, however, shows a markedly thickened bladder as well. As such, because of the patient's 2 active malignancies, overall prognosis is quite poor and it remains my opinion that aggressive medical care is futile in this patient given his overall limited life expectancy. 2. Urology followup is appreciated. The patient's catheter was irrigated and was not draining. It was replaced with a new 20-[place] catheter with return of several hundred mL and thus there was some evidence of the Beard catheter having not been in its proper location accounting for his acute kidney injury. 3. Creatinine had decreased to 2.2, but is now again increasing up to 2.9 today. This is in the set ting of worsening hypernatremia and thus, there is certainly a prerenal component associated with it. The patient was unable to tolerate water orally and therefore he will need to be given this intrave nously in the forms of D5W. At present, this 118 kg gentleman has a water deficit of 7.2 liters and so we will start him on D5W at 150 mL per hour for now, although there would be a concern that the de xtrose may render the patient hypokalemic as a result of increased insulin release. I suspect for no w it is more likely to render him perhaps hyperkalemic if his glucose were to increase, thus increasi ng his serum osmolarity and causing potassium to be shifted out of the cells and into the blood and t herefore instead of adding potassium to the intravenous fluids, we will continue to check the potassi um and replete peripherally as needed. 4. If the patient's level of mentation does not improve and if all aggressive measures are to be ashwini en and he were to fail another swallowing eval, PEG would possibly be a consideration; however, on tiffanie, given his 2 active malignancies (pancreas and bladder), I would hold off on that. 5. The patient's blood pressure has improved. Although his chest x-ray does not reveal any pulmonar y vascular congestion, he is quite anasarcic and administering crystalloid would worsen this. Theref ore, instead, we will continue albumin 25 g intravenously every 6 hours for this patient. Of note, maryam mehta has also been seen by GI and they are recommending 12.5 grams of albumin every hour for 9 hours whi ch would actually translate into a higher dose than the one I stated above and I would actually have no objection to continuing on the higher dose as recommended by GI. 6. The patient does appear to be dyspneic, but his chest x-ray does not reveal any obvious etiology. I suspect it is secondary to his worsening ascites and the fact that it is limiting his diaphragmat ic excursion. Attempt was made at paracentesis, but it appears that most of his ascites is pocketed retrohepatically. To make it easier for the patient to properly breathe, either we can reattempt a p aracentesis or perhaps consider Tenckhoff catheter placement. 7. The patient's calcium level is low, however, after adjusting for the hypoalbuminemia, it is 7.4. Given the fact that his blood pressure has improved, I do not believe we need to put the patient on any continuous calcium infusion at this time. If needed, however, we can give him calcium gluconate intravenously as needed if he has manifestations of neuromuscular hyperexcitably such as tetany or p rolonged QT interval on monitoring. 8. For gastrointestinal prophylaxis, the patient is currently on famotidine twice daily. Since he h as acute kidney injury, however, we will change this to daily. Given the fact that he is thrombocyto penic, a proton pump inhibitor may be a better selection since these are less likely to result in thr ombocytopenia; however, it is noted that he is also being treated for Clostridium difficile colitis with oral vancomycin. 9. For now, I would avoid any further furosemide in this patient since, although he is anasarcic, I would not want to have him return to pressor dependence. Rather to alleviate the work of breathing, I believe perhaps another attempt should be made at paracentesis. Via the chart, review of systems, past medical history, social history and family history were all re viewed and there are no new changes. More than 35 minutes were spent in the care of this ICU patient today. Barry Shahid MD cc: [phone] TT: 05/11/2016 14:31:53 Confirmation # [id number] Dictation # [id number] tn
--- NOTE | 2016-05-11 15:59 | CP.PCM.PN ---
Subjective - Date & Time of Evaluation Date of Evaluation: 05/11/16 Time of Evaluation: 15:10 - Subjective Subjective: Patient is now extubated but still on a BiPAP, not febrile currently, somewhat agitated. Objective - Vital Signs/Intake and Output Vital Signs (last 24 hours): Temp Pulse Resp BP Pulse Ox 97.8 F 100 H 22 143/70 100 05/11/16 04:00 05/11/16 06:15 05/11/16 06:15 05/11/16 06:15 05/11/16 06:15 Intake and Output: 05/10/16 05/11/16 18:59 06:59 Intake Total 1440 Output Total 650 Balance 790 - Medications Medications: Current Medications Albumin Human (Albumin Human 25% (25 Gm/100 Ml)) 25 gm IV Q6 WIL Stop: 05/11/16 18:01 Last Admin: 05/11/16 00:34 Dose: 25 gm Albuterol/Ipratropium (Duoneb 3 Mg/0.5 Mg (3 Ml) Ud) 3 ml IH [id number] PRN PRN Reason: Shortness Of Breath Budesonide (Pulmicort Respules) 0.5 mg IH [id number] WIL Last Admin: 05/10/16 19:50 Dose: 0.5 mg Chlordiazepoxide (Librium) 25 mg PO Q8 PRN; Protocol PRN Reason: Agitation Last Admin: 05/06/16 05:15 Dose: 25 mg Meropenem 1 gm/ Sodium (Chloride) 100 mls @ 100 mls/hr IVPB Q12 WIL PRN Reason: Protocol Stop: 05/14/16 11:31 Last Admin: 05/10/16 21:51 Dose: 100 mls/hr Famotidine (Pepcid 20mg/50ml Premix) 50 mls @ 100 mls/hr IVPB Q12 WIL Last Admin: 05/10/16 21:42 Dose: 100 mls/hr Sodium Chloride (Sodium Chloride 0.9%) 1,000 mls @ 100 mls/hr IV .Q10H WIL Last Admin: 05/10/16 09:40 Dose: 100 mls/hr Insulin Human Lispro (Humalog Low) 0 units SC ACHS WIL PRN Reason: Protocol Last Admin: 05/10/16 21:54 Dose: Not Given Levalbuterol HCl (Xopenex) 1.25 mg IH TIDRESP [facility] Last Admin: 05/10/16 19:50 Dose: 1.25 mg Saliva Substitute (Saliva Substitute) 0 ml PO 5XD PRN PRN Reason: DRY MOUTH Vancomycin HCl (Vancocin 25 Mg/Ml (Oral Use)) 125 mg PO QID WIL PRN Reason: Protocol Last Admin: 05/10/16 22:00 Dose: Not Given - Labs Labs: 05/11/16 05:40 05/10/16 20:23 PT 11.4 Seconds (9.9-11.8) 05/08/16 08:30 INR 1.06 (0.93-1.08) 05/08/16 08:30 APTT 30.0 Seconds (23.7-30.8) 05/08/16 08:30 - Constitutional Appears: Non-toxic, No Acute Distress - Head Exam Head Exam: NORMAL INSPECTION - Neck Exam Neck Exam: absent: Lymphadenopathy, Meningismus - Respiratory Exam Respiratory Exam: Decreased Breath Sounds - Cardiovascular Exam Cardiovascular Exam: +S1, +S2 - GI/Abdominal Exam GI & Abdominal Exam: Soft. absent: Tenderness Assessment and Plan - Assessment and Plan (Free Text) Plan: Assessment Severe sepsis with acute renal failure and hypoxic respiratory failure (S/P intubation) probably secondary to persistent Klebsiella pneumoniae bacteremia probably from severe cystitis and pyelonephritis, R/O port infection, R/O abdominal compartment syndrome with ascites S/P paracentesis POD #2; also with C diff associated diarrhea, clinically improving; has Micrococcus species in the 05/04/2016 blood cx from the port, which is probably a contaminant (1 out of 4 bottles, and it is unlike other coagulase negative staph) acute anemia Pancreatic cancer S/P chemotherapy and radiation therapy and surgery HTN DM obesity with BMI 34 Plan continue Meropenem (04/29, 04/30, 05/01 cx are positive, now the 05/04 cx are negative in terms of the Klebsiella and the repeat on 05/09 is negative); CT Abdomen and pelvis reviewed; continue PO Vancomycin (day 9); 2D echo repeated 05/06/2016 still does not show vegetations; follow up repeat blood cx done yesterday to make sure the Micrococcus is not persistently in the blood Ascitic fluid cultures are negative would consider removal of the port because of the persistent Klebsiella bacteremia when feasible (currently patient is thrombocytopenic and would hesitate to have the port removed right now - also there needs to be plan to place a new port if the patient still needs chemotherapy) Will continue to follow clinically Overall prognosis is poor
[2016-05-12 06:16] LABS: ARTERIAL BLOOD GAS HCO3 17.6 mmol/L (21-28); ARTERIAL BLOOD GAS O2 CAPACITY 18.3 mL/dl (16-24); ARTERIAL BLOOD GAS PH 7.39 (7.35-7.45); ARTERIAL BLOOD HGB O2 SAT 95.4 % (95.0-98.0); HHB 1.4 % (0-5); METHEMOGLOBIN 1.2 % (0.0-3.0)
[2016-05-12 06:59] LABS: HEMATOCRIT 33.4 % (42.0-52.0); MEAN CELL VOLUME 87.9 fL (80.0-105.0); MEAN CORPUSCULAR HEMOGLOBIN 29.2 pg (25.0-35.0); MEAN CORPUSCULAR HGB CONC 33.2 g/dl (31.0-37.0); PLATELET COUNT 72 10^3/uL (120.0-450.0); RED CELL DISTRIBUTION WIDTH 17.7 % (11.5-14.5); WHITE BLOOD COUNT 9.4 10^3/ul (4.5-11.0)
[2016-05-12 07:11] LABS: ALB/GLOB RATIO 0.8 (1.1-1.8); BILIRUBIN,TOTAL 1.1 mg/dL (0.2-1.3); CALCIUM 7.7 mg/dL (8.4-10.5); POTASSIUM 3.7 mmol/L (3.6-5.0); TOTAL PROTEIN 6.1 g/dL (5.8-8.3)
--- NOTE | 2016-05-12 07:34 | CP.PCM.PN ---
<MuluvipulKristian - Last Filed: 05/12/16 08:32> Subjective - Date & Time of Evaluation Date of Evaluation: 05/12/16 Time of Evaluation: 07:31 - Subjective Subjective: PGY4 GI Fellow Progress Note Patient seen and examined bedside this morning. The patient admits to abdominal distention and discomfort. Had repeat paracentesis yesterday evening with 5L removed and some relief afterwards. Does have difficulty communicating as he remains dyspenic. 12 system ROS performed and negative except where stated. Objective - Vital Signs/Intake and Output Vital Signs (last 24 hours): Temp Pulse Resp BP Pulse Ox 98.2 F 119 H 18 137/71 98 05/12/16 00:00 05/12/16 04:00 05/12/16 00:00 05/12/16 00:00 05/12/16 00:00 Intake and Output: 05/12/16 05/12/16 06:59 18:59 Intake Total 2100 Output Total 5150 Balance -3050 - Medications Medications: Current Medications Albumin Human (Albumin Human 25% (12.5 Gm/50 Ml)) 12.5 gm IV Q1H [facility] Stop: 05/12/16 16:01 Albuterol/Ipratropium (Duoneb 3 Mg/0.5 Mg (3 Ml) Ud) 3 ml IH [id number] PRN PRN Reason: Shortness Of Breath Budesonide (Pulmicort Respules) 0.5 mg IH [id number] WIL Last Admin: 05/11/16 20:59 Dose: 0.5 mg Chlordiazepoxide (Librium) 25 mg PO Q8 PRN; Protocol PRN Reason: Agitation Last Admin: 05/06/16 05:15 Dose: 25 mg Meropenem 1 gm/ Sodium (Chloride) 100 mls @ 100 mls/hr IVPB Q12 WIL PRN Reason: Protocol Stop: 05/14/16 11:31 Last Admin: 05/11/16 23:00 Dose: 100 mls/hr Dextrose (Dextrose 5% In Water 1000 Ml) 1,000 mls @ 150 mls/hr IV .Q6H40M WIL Last Admin: 05/12/16 04:38 Dose: 150 mls/hr Famotidine (Pepcid 20mg/50ml Premix) 50 mls @ 100 mls/hr IVPB DAILY [facility] Insulin Human Lispro (Humalog Low) 0 units SC ACHS WIL PRN Reason: Protocol Last Admin: 05/11/16 21:30 Dose: Not Given Levalbuterol HCl (Xopenex) 1.25 mg IH TIDRESP [facility] Last Admin: 05/11/16 20:59 Dose: 1.25 mg Saliva Substitute (Saliva Substitute) 0 ml PO 5XD PRN PRN Reason: DRY MOUTH Vancomycin HCl (Vancocin 25 Mg/Ml (Oral Use)) 125 mg PO QID WIL PRN Reason: Protocol Last Admin: 05/11/16 23:47 Dose: 125 mg - Labs Labs: 05/11/16 05:40 05/12/16 06:50 PT 11.4 Seconds (9.9-11.8) 05/08/16 08:30 INR 1.06 (0.93-1.08) 05/08/16 08:30 APTT 30.0 Seconds (23.7-30.8) 05/08/16 08:30 - Constitutional Appears: No Acute Distress - Eye Exam Eye Exam: EOMI, PERRL - ENT Exam ENT Exam: Mucous Membranes Dry - Respiratory Exam Respiratory Exam: Clear to Ausculation Bilateral. absent: Rales, Rhonchi, Wheezes - Cardiovascular Exam Cardiovascular Exam: RRR, +S1, +S2 - GI/Abdominal Exam GI & Abdominal Exam: Distended, Firm, Tenderness, Hypoactive Bowel Sounds. absent: Guarding, Rigid, Organomegaly - Extremities Exam Additional comments: B/L LE 2+ pitting edema - Neurological Exam Neurological Exam: Alert, Awake - Skin Skin Exam: Dry, Warm Assessment and Plan - Assessment and Plan (Free Text) Assessment: 65 year old male with history of pancreatic cancer, bladder cancer, HTN, DM who was originally admitted with ADILENE, pyelonephritis, sepsis, C. diff. GI reconsulted for abdominal distention which is related to ascites. -Pancreatic and bladder cancer -Spontaneous bacterial peritonitis -Recurrent ascites s/p paracentesis -Acute kidney injury -C diff diarrhea, resolved -HTN -DM Plan: -S/P 5L paracentesis yesterday evening -Albumin replacement at 1gm/kg for SBP therapy ongoing -Continue with broad spectrum antibiotics per ID -Awaiting cytology, albumin and protein level off of ascitic fluid; discussed with lab and awaiting results -Unable to diurese given kidney function -Pending repeat swallow evaluation, pt with poor PO intake to date; would recommend NGT placement and FWF/tube feeding if he fails swallow eval -Poor prognosis <Law Zavala - Last Filed: 05/12/16 11:51> Objective - Vital Signs/Intake and Output Vital Signs (last 24 hours): Temp Pulse Resp BP Pulse Ox 97.1 F L 119 H 18 137/71 98 05/12/16 08:00 05/12/16 04:00 05/12/16 00:00 05/12/16 00:00 05/12/16 00:00 Intake and Output: 05/12/16 05/12/16 06:59 18:59 Intake Total 2100 Output Total 5150 Balance -3050 - Medications Medications: Current Medications Albumin Human (Albumin Human 25% (12.5 Gm/50 Ml)) 12.5 gm IV Q1H [facility] Stop: 05/12/16 16:01 Last Admin: 05/12/16 11:44 Dose: 12.5 gm Albuterol/Ipratropium (Duoneb 3 Mg/0.5 Mg (3 Ml) Ud) 3 ml IH [id number] PRN PRN Reason: Shortness Of Breath Budesonide (Pulmicort Respules) 0.5 mg IH [id number] WIL Last Admin: 05/12/16 08:20 Dose: 0.5 mg Chlordiazepoxide (Librium) 25 mg PO Q8 PRN; Protocol PRN Reason: Agitation Last Admin: 05/06/16 05:15 Dose: 25 mg Meropenem 1 gm/ Sodium (Chloride) 100 mls @ 100 mls/hr IVPB Q12 WIL PRN Reason: Protocol Stop: 05/14/16 11:31 Last Admin: 05/12/16 11:05 Dose: 100 mls/hr Dextrose (Dextrose 5% In Water 1000 Ml) 1,000 mls @ 150 mls/hr IV .Q6H40M [facility] Last Admin: 05/12/16 11:43 Dose: 150 mls/hr Famotidine (Pepcid 20mg/50ml Premix) 50 mls @ 100 mls/hr IVPB DAILY [facility] Last Admin: 05/12/16 11:43 Dose: 100 mls/hr Insulin Human Lispro (Humalog Low) 0 units SC ACHS WIL PRN Reason: Protocol Last Admin: 05/12/16 08:44 Dose: Not Given Levalbuterol HCl (Xopenex) 1.25 mg IH TIDRESP [facility] Last Admin: 05/12/16 08:20 Dose: 1.25 mg Saliva Substitute (Saliva Substitute) 0 ml PO 5XD PRN PRN Reason: DRY MOUTH Vancomycin HCl (Vancocin 25 Mg/Ml (Oral Use)) 125 mg PO QID WIL PRN Reason: Protocol Last Admin: 05/12/16 11:05 Dose: 125 mg - Labs Labs: 05/12/16 06:50 05/12/16 06:50 PT 11.4 Seconds (9.9-11.8) 05/08/16 08:30 INR 1.06 (0.93-1.08) 05/08/16 08:30 APTT 30.0 Seconds (23.7-30.8) 05/08/16 08:30 Attending/Attestation - Attestation I have personally seen and examined this patient.: Yes I have fully participated in the care of the patient.: Yes I have reviewed all pertinent clinical information, including history, physical exam and plan: Yes Notes (Text): 05/12/16 11:49 65 year old male with h/o pancreatic cancer, bladder cancer, HTN, DM who was originally admitted with ADILENE, pyelonephritis, sepsis, C. diff. We are reconsulted for abdominal distention which is related to ascites. 1. Ascites 2. SBP 3. Pancreatic cancer Plan: -awaiting TP and Albumin to determine etiology of ascites -await cytology from ascitic fluid -continue antibiotics per ICU -continue albumin as part of SBP treatment -supportive care per ICU -respiratory status stable today -overall prognosis is probably poor
--- NOTE | 2016-05-12 08:13 | CP.PCM.PN ---
Subjective - Date & Time of Evaluation Date of Evaluation: 05/12/16 Time of Evaluation: 08:10 - Subjective Subjective: Surgery for Dr. Valencia Pt s&e. Pt underwent paracenthesis yesterday and put out 8L. TOlerated it well. KRYSTA. Denies F/C/N/V/D. Pt on BiPAP. Objective - Vital Signs/Intake and Output Vital Signs (last 24 hours): Temp Pulse Resp BP Pulse Ox 98.2 F 119 H 18 137/71 98 05/12/16 00:00 05/12/16 04:00 05/12/16 00:00 05/12/16 00:00 05/12/16 00:00 Intake and Output: 05/12/16 05/12/16 06:59 18:59 Intake Total 2100 Output Total 5150 Balance -3050 - Medications Medications: Current Medications Albumin Human (Albumin Human 25% (12.5 Gm/50 Ml)) 12.5 gm IV Q1H WIL Stop: 05/12/16 16:01 Albuterol/Ipratropium (Duoneb 3 Mg/0.5 Mg (3 Ml) Ud) 3 ml IH [id number] PRN PRN Reason: Shortness Of Breath Budesonide (Pulmicort Respules) 0.5 mg IH [id number] WIL Last Admin: 05/11/16 20:59 Dose: 0.5 mg Chlordiazepoxide (Librium) 25 mg PO Q8 PRN; Protocol PRN Reason: Agitation Last Admin: 05/06/16 05:15 Dose: 25 mg Meropenem 1 gm/ Sodium (Chloride) 100 mls @ 100 mls/hr IVPB Q12 WIL PRN Reason: Protocol Stop: 05/14/16 11:31 Last Admin: 05/11/16 23:00 Dose: 100 mls/hr Dextrose (Dextrose 5% In Water 1000 Ml) 1,000 mls @ 150 mls/hr IV .Q6H40M WIL Last Admin: 05/12/16 04:38 Dose: 150 mls/hr Famotidine (Pepcid 20mg/50ml Premix) 50 mls @ 100 mls/hr IVPB DAILY [facility] Insulin Human Lispro (Humalog Low) 0 units SC ACHS WIL PRN Reason: Protocol Last Admin: 05/11/16 21:30 Dose: Not Given Levalbuterol HCl (Xopenex) 1.25 mg IH TIDRESP [facility] Last Admin: 05/11/16 20:59 Dose: 1.25 mg Saliva Substitute (Saliva Substitute) 0 ml PO 5XD PRN PRN Reason: DRY MOUTH Vancomycin HCl (Vancocin 25 Mg/Ml (Oral Use)) 125 mg PO QID WIL PRN Reason: Protocol Last Admin: 05/11/16 23:47 Dose: 125 mg - Labs Labs: 05/12/16 06:50 05/12/16 06:50 PT 11.4 Seconds (9.9-11.8) 05/08/16 08:30 INR 1.06 (0.93-1.08) 05/08/16 08:30 APTT 30.0 Seconds (23.7-30.8) 05/08/16 08:30 - Constitutional Appears: No Acute Distress - Head Exam Head Exam: ATRAUMATIC, NORMAL INSPECTION, NORMOCEPHALIC - Eye Exam Eye Exam: EOMI, Normal appearance, PERRL Pupil Exam: NORMAL ACCOMODATION, PERRL - ENT Exam ENT Exam: Mucous Membranes Moist, Normal Exam - Neck Exam Neck Exam: Full ROM - Respiratory Exam Additional comments: On BiPAP - Cardiovascular Exam Cardiovascular Exam: REGULAR RHYTHM, +S1, +S2 Additional comments: Port in place: no eryhtema - GI/Abdominal Exam GI & Abdominal Exam: Soft. absent: Distended, Firm, Guarding, Rigid, Tenderness - Extremities Exam Extremities Exam: Normal Inspection - Back Exam Back Exam: NORMAL INSPECTION - Neurological Exam Neurological Exam: Alert, Awake, CN II-XII Intact, Oriented x3 Assessment and Plan - Assessment and Plan (Free Text) Assessment: 65M w. bacteremia w. portacath as possible source -will plan for OR on Saturday for portacath removal -c/w current medical management -d/w attending
[2016-05-12] MEDS: Budesonide 0.5 mg/2 ml Inhal Susp UD IH SCH ×2 (08:20→21:12)
[2016-05-12] MEDS: Levalbuterol 1.25 MG/3 ML Inhal Soln UD IH SCH ×3 (08:20→21:10)
[2016-05-12] MEDS: Insulin Lispro (humaLOG) LOW Coverage SC SCH ×4 (08:44→22:52)
--- NOTE | 2016-05-12 08:44 | PN ---
DATE: 05/12/2016 The patient was seen earlier this morning in 129, bed 3. No fevers and comfortable. The patient had an uneventful night as per nurse caring for the patient. The patient is on BiPAP. PHYSICAL EXAMINATION: VITAL SIGNS: Temperature is 98, blood pressure is 130/70, respiratory rate of 18. HEENT: Unremarkable. NECK: Supple. LUNGS: Decreased breath sounds. HEART: Normal S1, S2. ABDOMEN: Soft, nontender. LABORATORY DATA: Reveals a white count of 9.4, hemoglobin of 11, platelets of 72 and a BUN of 105, c reatinine of 3.2. Urinalysis is noted. Peritoneal fluid is noted. The patient has 6000 WBCs. The microbiology reveals the patient's urine culture has a gram-positive cocci. The patient did have Kle bsiella in the blood, multiple cultures, first one was on 04/29/2016 and last one was on 05/04/2016. Re peat blood cultures from 05/09/2016 is negative. MEDICATIONS: Review of the medications reveals the patient is to be on meropenem. ALLERGIES: PENICILLIN. Dr. Hi's progress note from this morning is reviewed. The patient had a chest x-ray this morning, i t is pending. ASSESSMENT AND PLAN: A 65-year-old male who was seen earlier this morning, in CCU 129, bed 3 with se herberth sepsis with acute renal failure and hypoxic respiratory failure, now extubated and secondary to probable persistent Klebsiella pneumoniae bacteremia with severe cystitis and pyelonephritis and spon taneous bacterial peritonitis with an elevated white count in the peritoneal fluid of 6000 with 90% n eutrophils. Abdominal fluid cultures are negative. Waiting for removal of the Port-A-Cath, which pr obably is most likely the source of this Klebsiella bacteremia, which has been persistent in this pat ient who has a pancreatic cancer, status post chemotherapy and radiation with diabetes mellitus, obes ity with a BMI of 34 and hypertension. We will continue the meropenem. The patient is waiting for r emoval of the Port-A-Cath. Will also continue the p.o. vancomycin for empiric C. diff therapy. The patient's C. diff on 04/29/2016 was positive antigen and a negative toxin. We will follow closely yeimy he. Billy Rome MD cc: [id number] TT: 05/12/2016 08:44:17 Confirmation # [id number] Dictation # [id number] jn
[2016-05-12] MEDS: Albumin Human 25% (12.5 gm/50 ml) IV SCH ×9 (08:50→15:50)
--- NOTE | 2016-05-12 09:52 | RAD ---
HISTORY: Follow-up. COMPARISON: May 11, 2016. FINDINGS: LUNGS: No active pulmonary disease. PLEURA: No significant pleural effusion identified, no pneumothorax apparent. CARDIOVASCULAR: No radiographic findings to suggest acute or significant cardiovascular disease. Venous access catheter in stable, satisfactory position. OSSEOUS STRUCTURES: No significant abnormalities. VISUALIZED UPPER ABDOMEN: Normal. OTHER FINDINGS: None. IMPRESSION: No active disease. No significant interval change compared to the prior examination(s).
--- NOTE | 2016-05-12 10:58 | US ---
HISTORY: Leg pain and swelling. Evaluate for DVT PHYSICIAN(S): Horacio Olivia MD. TECHNIQUE: Duplex sonography and color-flow Doppler with graded compression were used to evaluate the deep venous systems of both lower extremities. The exam is limited by portable technique, body habitus, and edema. The tibial veins are not well seen. FINDINGS: The visualized deep venous systems of both lower extremities are sonographically normal and compressible. Normal wave forms and augmentation are seen. There is no sonographic evidence for deep venous thrombosis in the visualized segments of both lower extremities. IMPRESSION: No sonographic evidence for deep venous thrombosis in the visualized segments of both lower extremities. Limited study.
[2016-05-12] MEDS: Vancomycin 25 MG/ML PO SCH ×4 (11:05→22:55)
[2016-05-12] MEDS: Meropenem 1 GM in Sodium Chloride 0.9% 100 ML IVPB SCH ×2 (11:05→22:53)
[2016-05-12] MEDS: Famotidine 20mg/50ml 50 ML IVPB SCH (11:43)
--- NOTE | 2016-05-12 11:46 | PN ---
DATE: 05/12/2016 The patient was seen and examined in intensive care unit. He is currently receiving a nebulizer temo tment. He is off BiPAP. Overall, his pulmonary condition has improved. He is receiving antibiotics , vancomycin as well as meropenem. He is on inhalation therapy with DuoNeb and added budesonide. I reviewed today's chest x-ray, which reveals no significant congestive heart failure and no acute pu lmonary disease. PHYSICAL EXAMINATION: VITAL SIGNS: Temperature is 97.8, pulse 100, respirations 20, blood pressure is 130/70. HEAD, EARS, NOSE, AND THROAT: Atraumatic, normocephalic. CARDIOVASCULAR: Systolic ejection murmur, questionable S3. PULMONARY: Decreased breath sounds at both bases, with few rhonchi. EXTREMITIES: Mild edema. No cyanosis. GASTROINTESTINAL: Soft, nontender, with no organomegaly. Slightly distended. SKIN: No acute skin rash. NEUROLOGIC: Limited at present time. ASSESSMENT AND PLAN: 1. Respiratory failure. 2. Klebsiella sepsis. 3. Advanced pancreatic cancer. 4. Positive ascites. 5. Renal dysfunction. PLAN: Currently, the patient is afebrile. He has responded well to BiPAP. His respiratory failure is resolving. He has a negative fluid balance of 3 L today. LABORATORY DATA: I reviewed his blood gas which reveals pH of 7.39, which is normal, pCO2 of 29 and pO2 of 109. Today's serum sodium is 152, potassium 3.7. WBC is 9.4, hemoglobin of 11.1. PLAN: The patient continues to improve. I discussed his condition at length with the head of intens lee care unit, Dr. Leal. We will continue as per current plan. Gabe Moore MD cc: [id number] TT: 05/12/2016 11:46:26 Confirmation # [id number] Dictation # [id number] ln
--- NOTE | 2016-05-12 12:50 | PN ---
DATE: 05/11/2016 The patient seen and examined at bedside. He is comfortable; however, weak. Nevertheless, he is alert and oriented. He is not in respiratory or otherwise distress. PHYSICAL EXAMINATION: VITAL SIGNS: Heart rate 122, blood pressure 108/65, oxygen saturation 94% on 2L nasal cannula, respiratory rate 26. The patient is afebrile. HEAD AND NECK: Atraumatic. LUNGS: Clear to auscultation bilaterally. HEART: Regular rate and rhythm. S1, S2 normal. ABDOMEN: Soft, nontender, nondistended, but obese (patient did have 5 L removed yesterday with paracenteses). NEUROLOGIC: The patient moves all extremities spontaneously. SKIN: Moist. PSYCHIATRIC: The patient is alert and oriented x 3. LABORATORY DATA: WBC 9.4, hemoglobin 11.1, platelet count 72. Sodium 152, potassium 3.7, chloride 116, BUN 105, creatinine 3.2, up from 2.9, glucose 192. MEDICATIONS: DuoNeb p.r.n., D5 normal saline 150 mL/h, regular insulin sliding scale, low protocol, Librium p.r.n., meropenem, Pepcid, inhaled budesonide, vancomycin p.o., and Xopenex t.i.d. ASSESSMENT AND PLAN: This is a 65-year-old gentleman with severe sepsis, secondary to spontaneous bacterial peritonitis and cystitis; with now resolved Klebsiella pneumoniae bacteremia. The patient is comfortable; however weak and tachycardic. Optimization of oral nutrition, sleep and circadian rhythms, OOB to chair, physical therapy would help greatly in his short term recovery ( patient has synchronous pancreatic and bladder cancer, which makes relatively chcf prognosis much poorer). In terms of his tachycardia--it may be attributed to residual sepsis and relative intravascular hypovolemia/ conservative fluid management to optimize his respiratory status to avoid reintubation. Patient is however receiving D5W IV untill his oral intake optimized. His sodium level is improving and we will keep close eye on it. He is also on broad spectrum abx and ID service following him as well. Patient was off heparin due to his thrombocytopenia and DVT prophylaxis was provided via SCD. Venous Doppler of LEs is negative. V/Q scan is pending. Once VTE as a etiology of sinus tach ruled out-->may consider b-blockade if cardiology service agreed. Patient BP brothers is stable. Also once V/Q scan results are available I will start patient on heparin for DVT prophylaxis (TAC if high probability for PE). Patient had large volume paracenthesis yesterday, which should help to avoid lower lobes atelectasis and improve his FRC. Will continue to monitor ccm time 40 min Guanaco Leal MD cc: [id number] TT: 05/12/2016 12:50:10 Confirmation # [id number] Dictation # [id number] ln MTDD
--- NOTE | 2016-05-12 15:47 | PN ---
DATE: 05/12/2016 I saw the patient in the intensive care unit. He is resting in bed. He is extubated. Feels they to ok 5 L off his belly after paracentesis. His belly is much less distended, he is more alert, he is t rying to talk. He is moving his body a little bit better, but he is still extremely weak. He does e at a little bit now too, which is also new for him. He is on albumin, he is on IV dextrose, DuoNeb, insulin, Librium, Merrem IV, Pepcid, Pulmicort, saliv a, vancomycin, and Xopenex. He has a 97.1 temp, 119 pulse, 98 O2 sat, and 137/71 blood pressure. HEAD: Atraumatic, normocephalic. He is alert. His mouth is dry. He is not really talking much, but he is answering yes and no questi ons by nodding his head. HEART: Regular rate. LUNGS: Have decreased breath sounds bilaterally. ABDOMEN: Obese, nontender, less distended after taking off 5 L of liquid. There is some bowel sound s, but distant. EXTREMITIES: Have no edema. He is being seen by pulmonary, infectious disease, GI, renal, neurology, and the environmental health manager. He has a 9.4 white count, 11.1 hemoglobin after transfusion, 33.4 hematocrit, and 72 platelets. He h as been as low 7. INR is 1.06. He has a 152 sodium, potassium is 3.7, BUN is 105, creatinine 3.2. It was better, and it is a little bit worse today. 19 GFR. Sugar is 192, calcium 7.7, total bili is 1.1. AST is 12, ALT is 19, alk phos is 85, total protein 6.1. Urine has large blood. He has so many issues. He has shortness of breath, pancreatic cancer, CHF, COPD, dehydration, high p otassium, NSTEMI, anemia, UTI, severe sepsis. He had respiratory failure where he was intubated and extubated. We will do the best we can. I discuss this with the at length how bad a shape he is in. I do n ot know if she is understanding that yet. She still wants everything done. Will continue to do that . Will continue with treatment and care, check his labs tomorrow, and he had a positive C. diff anti gen. Melquiades Dorsey DO cc: [id number] TT: 05/12/2016 15:46:37 Confirmation # [id number] Dictation # [id number] jn
[2016-05-12] MEDS: Albuterol-Ipratrop 3 mg / 0.5 (3 ml) UD IH PRN (16:42)
[2016-05-12 22:16] LABS: ARTERIAL BLOOD GAS HCO3 16.7 mmol/L (21-28); ARTERIAL BLOOD GAS O2 CONTENT 12.8 ML/dl (15-23); ARTERIAL BLOOD GAS PH 7.34 (7.35-7.45); ARTERIAL BLOOD HGB O2 SAT 95.1 % (95.0-98.0); CARBOXYHEMOGLOBIN 2.1 % (0.5-1.5); HHB 1.5 % (0-5); METHEMOGLOBIN 1.3 % (0.0-3.0)
--- NOTE | 2016-05-12 22:27 | NM ---
COMPARISON: May 12, 2016. TECHNIQUE: 33.0 mCi technetium 99-m DTPA aerosol. 4.0 mCI technetium 99-m MAA administered intravenously. FINDINGS: VENTILATION COMPONENT: Normal. PERFUSION COMPONENT: Heterogeneous distribution of radionuclide. No geographic, segmental, lobar abnormalities apparent on the present examination. IMPRESSION: Low probability ventilation perfusion scan for pulmonary embolism.
[2016-05-13 06:26] LABS: CALCIUM 8.2 mg/dL (8.4-10.5); POTASSIUM 3.8 mmol/L (3.6-5.0); TOTAL PROTEIN 6.2 g/dL (5.8-8.3)
[2016-05-13 06:56] LABS: HEMATOCRIT 30.3 % (42.0-52.0); MEAN CELL VOLUME 87.8 fL (80.0-105.0); RED CELL DISTRIBUTION WIDTH 17.4 % (11.5-14.5); WHITE BLOOD COUNT 8.5 10^3/ul (4.5-11.0)
[2016-05-13 06:57] LABS: PLATELET COUNT 45 10^3/uL (120.0-450.0)
[2016-05-13] MEDS: Budesonide 0.5 mg/2 ml Inhal Susp UD IH SCH ×2 (07:30→20:17)
[2016-05-13] MEDS: Levalbuterol 1.25 MG/3 ML Inhal Soln UD IH SCH ×3 (07:30→20:16)
--- NOTE | 2016-05-13 09:08 | CP.PCM.PN ---
<Kristian Jeffrey - Last Filed: 05/13/16 09:04> Subjective - Date & Time of Evaluation Date of Evaluation: 05/13/16 Time of Evaluation: 07:00 - Subjective Subjective: PGY4 GI Fellow Progress Note Patient seen and examined bedside this morning. The patient is on BIPAP and awake but only answering some questions. Denies any abdominal pain at this time. Discussed case with nursing staff, poor PO intake and no BM over last shift. 12 system ROS cannot be performed given current clinical condition. Objective - Vital Signs/Intake and Output Vital Signs (last 24 hours): Temp Pulse Resp BP Pulse Ox 97.6 F 111 H 23 94/60 L 100 05/13/16 04:00 05/13/16 07:30 05/13/16 05:15 05/13/16 05:00 05/13/16 05:15 Intake and Output: 05/13/16 05/13/16 06:59 18:59 Intake Total Output Total Balance - Medications Medications: Current Medications Albuterol/Ipratropium (Duoneb 3 Mg/0.5 Mg (3 Ml) Ud) 3 ml IH [id number] PRN PRN Reason: Shortness Of Breath Last Admin: 05/12/16 16:42 Dose: 3 ml Budesonide (Pulmicort Respules) 0.5 mg IH [id number] WIL Last Admin: 05/13/16 07:30 Dose: 0.5 mg Chlordiazepoxide (Librium) 25 mg PO Q8 PRN; Protocol PRN Reason: Agitation Last Admin: 05/06/16 05:15 Dose: 25 mg Heparin Sodium (Porcine) (Heparin) 5,000 units SC Q8 WIL PRN Reason: Protocol Last Admin: 05/13/16 05:49 Dose: 5,000 units Meropenem 1 gm/ Sodium (Chloride) 100 mls @ 100 mls/hr IVPB Q12 WIL PRN Reason: Protocol Stop: 05/14/16 11:31 Last Admin: 05/12/16 22:53 Dose: 100 mls/hr Dextrose (Dextrose 5% In Water 1000 Ml) 1,000 mls @ 150 mls/hr IV .Q6H40M WIL Last Admin: 05/13/16 05:50 Dose: 150 mls/hr Famotidine (Pepcid 20mg/50ml Premix) 50 mls @ 100 mls/hr IVPB DAILY [facility] Last Admin: 05/12/16 11:43 Dose: 100 mls/hr Insulin Human Lispro (Humalog Low) 0 units SC ACHS [facility] PRN Reason: Protocol Last Admin: 05/12/16 22:52 Dose: Not Given Levalbuterol HCl (Xopenex) 1.25 mg IH TIDRESP [facility] Last Admin: 05/13/16 07:30 Dose: 1.25 mg Saliva Substitute (Saliva Substitute) 0 ml PO 5XD PRN PRN Reason: DRY MOUTH Vancomycin HCl (Vancocin 25 Mg/Ml (Oral Use)) 125 mg PO QID [facility] PRN Reason: Protocol Last Admin: 05/12/16 22:55 Dose: Not Given - Labs Labs: 05/13/16 06:00 05/13/16 06:00 PT 11.4 Seconds (9.9-11.8) 05/08/16 08:30 INR 1.06 (0.93-1.08) 05/08/16 08:30 APTT 40.4 Seconds (23.7-30.8) H 05/13/16 06:00 - Constitutional Appears: Chronically Ill - Eye Exam Eye Exam: PERRL - ENT Exam ENT Exam: Mucous Membranes Dry - Respiratory Exam Respiratory Exam: Rales. absent: Rhonchi, Wheezes Additional comments: on BIPAP, B/L air entry - Cardiovascular Exam Cardiovascular Exam: Tachycardia, REGULAR RHYTHM, +S1, +S2 - GI/Abdominal Exam GI & Abdominal Exam: Distended, Firm, Soft, Normal Bowel Sounds. absent: Guarding, Rigid, Tenderness, Organomegaly - Extremities Exam Extremities Exam: Pedal Edema - Neurological Exam Neurological Exam: Altered, Awake - Skin Skin Exam: Dry, Warm Assessment and Plan - Assessment and Plan (Free Text) Assessment: 65 year old male with history of pancreatic cancer, bladder cancer, HTN, DM who was originally admitted with ADILENE, pyelonephritis, sepsis, C. diff. GI reconsulted for abdominal distention which is related to ascites. -Pancreatic and bladder cancer -Spontaneous bacterial peritonitis -Recurrent ascites s/p paracentesis -Acute kidney injury -VRE UTI -C diff diarrhea, resolved -HTN -DM Plan: -S/P 5L paracentesis on 05/11/16; abdomen again distended and tense, consider repeat paracentesis -SAAG >1.1; awaiting total protein -Check hepatitis panel -Cannot diurese in setting of worsening kidney failure, nephrology following -Continue with broad spectrum antibiotics per ID, now with VRE UTI -Swallow eval done; finely chopped food with nectar thick liquids - pt still not tolerating/eating -Poor prognosis; consider full hospice/palliative evaluation and discussion given significant co-morbid conditions and overall clinical deterioration despite interventions <Law Zavala - Last Filed: 05/13/16 10:48> Objective - Vital Signs/Intake and Output Vital Signs (last 24 hours): Temp Pulse Resp BP Pulse Ox 98.2 F 114 H 22 122/69 99 05/13/16 10:00 05/13/16 10:05 05/13/16 10:00 05/13/16 10:00 05/13/16 10:00 Intake and Output: 05/13/16 05/13/16 06:59 18:59 Intake Total Output Total Balance - Medications Medications: Current Medications Albuterol/Ipratropium (Duoneb 3 Mg/0.5 Mg (3 Ml) Ud) 3 ml IH [id number] PRN PRN Reason: Shortness Of Breath Last Admin: 05/12/16 16:42 Dose: 3 ml Budesonide (Pulmicort Respules) 0.5 mg IH [id number] [facility] Last Admin: 05/13/16 07:30 Dose: 0.5 mg Chlordiazepoxide (Librium) 25 mg PO Q8 PRN; Protocol PRN Reason: Agitation Last Admin: 05/06/16 05:15 Dose: 25 mg Heparin Sodium (Porcine) (Heparin) 5,000 units SC Q8 [facility] PRN Reason: Protocol Last Admin: 05/13/16 05:49 Dose: 5,000 units Meropenem 1 gm/ Sodium (Chloride) 100 mls @ 100 mls/hr IVPB Q12 [facility] PRN Reason: Protocol Stop: 05/14/16 11:31 Last Admin: 05/13/16 09:24 Dose: 100 mls/hr Dextrose (Dextrose 5% In Water 1000 Ml) 1,000 mls @ 150 mls/hr IV .Q6H40M [facility] Last Admin: 05/13/16 05:50 Dose: 150 mls/hr Famotidine (Pepcid 20mg/50ml Premix) 50 mls @ 100 mls/hr IVPB DAILY [facility] Last Admin: 05/13/16 09:26 Dose: 100 mls/hr Insulin Human Lispro (Humalog Low) 0 units SC ACHS [facility] PRN Reason: Protocol Last Admin: 05/13/16 09:26 Dose: 2 units Levalbuterol HCl (Xopenex) 1.25 mg IH TIDRESP [facility] Last Admin: 05/13/16 07:30 Dose: 1.25 mg Saliva Substitute (Saliva Substitute) 0 ml PO 5XD PRN PRN Reason: DRY MOUTH Vancomycin HCl (Vancocin 25 Mg/Ml (Oral Use)) 125 mg PO QID [facility] PRN Reason: Protocol Last Admin: 05/13/16 09:23 Dose: 125 mg - Labs Labs: 05/13/16 06:00 05/13/16 06:00 PT 11.4 Seconds (9.9-11.8) 05/08/16 08:30 INR 1.06 (0.93-1.08) 05/08/16 08:30 APTT 40.4 Seconds (23.7-30.8) H 05/13/16 06:00 Attending/Attestation - Attestation I have personally seen and examined this patient.: Yes I have fully participated in the care of the patient.: Yes I have reviewed all pertinent clinical information, including history, physical exam and plan: Yes Notes (Text): 05/13/16 10:47 65 year old male with h/o pancreatic cancer, bladder cancer, HTN, DM who was originally admitted with ADILENE, pyelonephritis, sepsis, C. diff. We are reconsulted for abdominal distention which is related to ascites. 1. Ascites 2. SBP 3. Pancreatic cancer Plan: -awaiting TP -High SAAG -await cytology from ascitic fluid -continue antibiotics per ICU -supportive care per ICU -respiratory status worse today requiring bipap -renal failure worsening -overall prognosis is probably poor
[2016-05-13] MEDS: Vancomycin 25 MG/ML PO SCH ×4 (09:23→22:21)
[2016-05-13] MEDS: Meropenem 1 GM in Sodium Chloride 0.9% 100 ML IVPB SCH ×2 (09:24→22:20)
[2016-05-13] MEDS: Insulin Lispro (humaLOG) LOW Coverage SC SCH ×4 (09:26→21:24)
[2016-05-13] MEDS: Famotidine 20mg/50ml 50 ML IVPB SCH (09:26)
--- NOTE | 2016-05-13 11:39 | PN ---
DATE: 05/13/2016 I saw him in the intensive care unit this morning. He is resting in bed. He is on BiPAP. They were not able to get him off the BiPAP this morning. He desaturated which is worrisome to me. He just h ad 5 liters removed 2 days ago from a centesis. MEDICATIONS: He is on dextrose, DuoNeb, heparin, insulin, Librium, Merrem, Pepcid, Pulmicort, saliva , vancomycin, and Xopenex. He is alert. He is nodding. He is not talking. He understands what is going on. He is in no pain. PHYSICAL EXAMINATION: VITAL SIGNS: 97.6 temp, 111 pulse, 23 respiratory rate, 100 O2 sat, and he has a 99/47 blood pressur e. HEENT: Head is atraumatic, normocephalic. HEART: Regular rate. A little tachycardic. LUNGS: Decreased breath sounds, but for the most part clear. Poor inspiration. ABDOMEN: Soft, obese, mildly distended. EXTREMITIES: Trace edema. He has the boots on. MEDICATIONS: He is on dextrose, DuoNeb, heparin, insulin, Librium, Merrem, Pepcid, Pulmicort, saliva , vancomycin, Xopenex. He is being seen by GI, the meat stuffer, pulmonary, infectious disease, renal, cardiology, pulmonolog y, urology, palliative care. I discussed this with the family this morning. He do not think he is d oing well. They still want everything done. I do not think he is going to do well. He has shortnes s of breath. He is status post acute respiratory failure, systemic inflammatory response syndrome, n on-ST elevation myocardial infarction, anemia, urinary tract infection, dehydration, chronic obstruct lee pulmonary disease, renal failure, congestive heart failure and pancreatic cancer, status post sobia mo and radiation. Melquiades Dorsey DO cc: [id number] TT: 05/13/2016 11:38:50 Confirmation # [id number] Dictation # [id number] david
--- NOTE | 2016-05-13 11:44 | CP.PCM.PN ---
Subjective - Date & Time of Evaluation Date of Evaluation: 05/13/16 Time of Evaluation: 08:36 - Subjective Subjective: General Surgery Progress Note for Dr. Valencia This 65M was seen and examined this AM at bedside. Pt was non verbal however he responds with headnods, denies any fevers, chills, chest pain. No complaints at this time. Patient was attempting to remove BIPAP mask. Objective - Vital Signs/Intake and Output Vital Signs (last 24 hours): Temp Pulse Resp BP Pulse Ox 98.2 F 114 H 22 122/69 99 05/13/16 10:00 05/13/16 10:05 05/13/16 10:00 05/13/16 10:00 05/13/16 10:00 Intake and Output: 05/13/16 05/13/16 06:59 18:59 Intake Total Output Total Balance - Medications Medications: Current Medications Albuterol/Ipratropium (Duoneb 3 Mg/0.5 Mg (3 Ml) Ud) 3 ml IH [id number] PRN PRN Reason: Shortness Of Breath Last Admin: 05/12/16 16:42 Dose: 3 ml Budesonide (Pulmicort Respules) 0.5 mg IH [id number] WIL Last Admin: 05/13/16 07:30 Dose: 0.5 mg Chlordiazepoxide (Librium) 25 mg PO Q8 PRN; Protocol PRN Reason: Agitation Last Admin: 05/06/16 05:15 Dose: 25 mg Heparin Sodium (Porcine) (Heparin) 5,000 units SC Q8 [facility] PRN Reason: Protocol Last Admin: 05/13/16 05:49 Dose: 5,000 units Meropenem 1 gm/ Sodium (Chloride) 100 mls @ 100 mls/hr IVPB Q12 [facility] PRN Reason: Protocol Stop: 05/14/16 11:31 Last Admin: 05/13/16 09:24 Dose: 100 mls/hr Dextrose (Dextrose 5% In Water 1000 Ml) 1,000 mls @ 150 mls/hr IV .Q6H40M [facility] Last Admin: 05/13/16 05:50 Dose: 150 mls/hr Famotidine (Pepcid 20mg/50ml Premix) 50 mls @ 100 mls/hr IVPB DAILY [facility] Last Admin: 03/12/17 09:26 Dose: 100 mls/hr Insulin Human Lispro (Humalog Low) 0 units SC ACHS [facility] PRN Reason: Protocol Last Admin: 05/13/16 09:26 Dose: 2 units Levalbuterol HCl (Xopenex) 1.25 mg IH TIDRESP [facility] Last Admin: 05/13/16 07:30 Dose: 1.25 mg Saliva Substitute (Saliva Substitute) 0 ml PO 5XD PRN PRN Reason: DRY MOUTH Vancomycin HCl (Vancocin 25 Mg/Ml (Oral Use)) 125 mg PO QID [facility] PRN Reason: Protocol Last Admin: 05/13/16 09:23 Dose: 125 mg - Labs Labs: 05/13/16 06:00 05/13/16 06:00 PT 11.4 Seconds (9.9-11.8) 05/08/16 08:30 INR 1.06 (0.93-1.08) 05/08/16 08:30 APTT 40.4 Seconds (23.7-30.8) H 05/13/16 06:00 - Constitutional Appears: No Acute Distress - Head Exam Head Exam: ATRAUMATIC, NORMAL INSPECTION, NORMOCEPHALIC - Eye Exam Eye Exam: EOMI, Normal appearance, PERRL Pupil Exam: NORMAL ACCOMODATION, PERRL - ENT Exam ENT Exam: Mucous Membranes Moist, Normal Exam - Neck Exam Neck Exam: Full ROM - Respiratory Exam Additional comments: On BiPAP - Cardiovascular Exam Cardiovascular Exam: REGULAR RHYTHM, +S1, +S2 Additional comments: Port in place: no eryhtema - GI/Abdominal Exam GI & Abdominal Exam: Soft. absent: Distended, Firm, Guarding, Rigid, Tenderness - Extremities Exam Extremities Exam: Normal Inspection - Back Exam Back Exam: NORMAL INSPECTION - Neurological Exam Neurological Exam: Alert, Awake, CN II-XII Intact, Oriented x3 Assessment and Plan - Assessment and Plan (Free Text) Assessment: 65M w. bacteremia w. portacath as possible source - Possibility for portacath removal -c/w current medical management -d/w attending
--- NOTE | 2016-05-13 12:38 | PN ---
DATE: 05/13/2016 The patient was seen and examined in intensive care unit. He is currently on nasal cannula. He spen t the night on BiPAP. He has moderate shortness of breath. PHYSICAL EXAMINATION: VITAL SIGNS: Currently, his respiratory rate is 23, temperature 97.6, pulse 103, oxygen saturation i s 96% on nasal cannula, blood pressure is 94/60. HEAD, EARS, NOSE AND THROAT: Within normal limits. NECK: Supple with no jugular vein distention. CHEST: Symmetrical. HEART: S1, S2. No S3 gallop. LUNGS: Diminished breath sounds at both bases with scattered rhonchi, no wheezing. GASTROINTESTINAL: Soft, nontender with no organomegaly. EXTREMITIES: No pedal edema. SKIN: No cyanosis, no skin rashes. NEUROLOGIC: No focal deficits. ASSESSMENT: 1. Respiratory failure, improved slightly. 2. Klebsiella sepsis. 3. Advanced pancreatic cancer. 4. Positive ascites. 5. Renal dysfunction. The patient is tolerating BiPAP at night and nasal cannula during the day, although he requires retur n to BiPAP several times during the day. Yesterday his respiratory failure has improved somewhat, bu t still situation is extremely guarded. LABORATORY DATA: I reviewed his blood work. His WBC is 8.5, hemoglobin of 10.0, platelet count is l ow at 45,000. His creatinine is 3.4 and BUN is 113, severe renal insufficiency is present. ASSESSMENT AND PLAN: I discussed his care with ICU team and the band splitter, Dr. Leal. We will continue as per above plan. Gabe Moore MD cc: [id number] TT: 05/13/2016 12:37:22 Confirmation # [id number] Dictation # [id number] david
--- NOTE | 2016-05-13 13:13 | PN ---
DATE: 05/13/2016 The patient is in bed, in no acute distress, was seen earlier today in CCU 129, bed 3. He had an une ventful night. PHYSICAL EXAMINATION: VITAL SIGNS: Temperature is 98, blood pressure is 120/60, respiratory rate 22, heart rate of 112 and the patient is on BiPAP oxygen delivery with 99% saturation. HEENT: Unremarkable. NECK: Supple. LUNGS: Have decreased breath sounds. HEART: Normal S1, S2. ABDOMEN: Soft, nontender. LABORATORY EXAMINATION: Reveals the white count is 8.5, hemoglobin of 10 and hematocrit is 30 with p latelets of 45. Coagulation is noted. BUN of 113, creatinine of 3.4, AST is 13, ALT of 14. Urine W BCs too numerous to count. Ascitic fluid with 6000 WBCs. Microbiology reveals no growth in the abdo maricruz fluid culture. He also has no organism on the Gram stain. The blood cultures have no growth. The urine culture has VRE. Initially, patient's blood cultures from 05/01 had Klebsiella pneumoniae. Currently, the patient's medication list reveals the patient to be on p.o. vancomycin and IV meropene m. Dr. Melquiades Dorsey's note from yesterday is reviewed. ASSESSMENT AND PLAN: A 65-year-old who was seen earlier this morning with severe sepsis, acute renal failure, hypoxic respiratory failure, now extubated, comfortable with persistent Klebsiella pneumoni ae bacteremia and severe cystitis and pyelonephritis and spontaneous bacterial peritonitis. Waiting for the removal of the Port-A-Cath, which is probably responsible for the Klebsiella bacteremia in a patient with pancreatic cancer and status post chemotherapy and radiation with diabetes mellitus and obesity, body mass index of 34 and hypertension and pseudomembranous colitis. Now on p.o. vancomycin and IV meropenem. Will follow with you. Billy Rome MD cc: [phone] TT: 05/13/2016 13:12:57 Confirmation # [id number] Dictation # [id number] en
--- NOTE | 2016-05-13 14:00 | PN ---
DATE: 05/13/2016 The patient seen and examined at bedside. He is comfortable, but looked very tired. He is not in respiratory distress, however he is on BiPAP 02/06/35%. PHYSICAL EXAMINATION: VITAL SIGNS: On that setting, his respiratory rate 20-23, end tidal volume 500- 600, heart rate 103, oxygen saturation 99%, blood pressure 188/25. HEAD AND NECK: Atraumatic. LUNGS: Decreased breath sounds bilaterally. HEART: Regular rate and rhythm. S1, S2 normal. ABDOMEN: Soft, nontender, but mildly distended. MUSCULOSKELETAL: Trace bilateral pedal and ankle edema. NEUROLOGIC: The patient moves all extremities spontaneously. SKIN: Moist. PSYCHIATRIC: The patient is alert and oriented x 3. LABORATORIES: WBC 8.5, hemoglobin 10, platelet count 45. Sodium 146, potassium 3.8, chloride 110, carbon dioxide 20, BUN 113, creatinine 3.4, glucose 190, AST 13, ALT 14. MEDICATIONS: DuoNeb p.r.n., heparin 5000 subQ q. 8, regular insulin sliding scale low protocol, Librium p.r.n., meropenem, Pepcid, Pulmicort, vancomycin p.o., Xopenex t.i.d. ASSESSMENT AND PLAN: This is a 65-year-old gentleman with active pancreatic and bladder cancer, who is now with severe sepsis with hypoxemic respiratory insufficiency due to spontaneous bacterial peritonitis and urinary tract infection. He had persistent K.pneumoniae bacteremia which however cleared recently. I spoke with Dr. Rome--still can not rule out with certainty indwelling IV as a source or one of the sources of bacteremia-->surgery service will preliminarily put him on schedule for Saturday. The patient was treated with broad-spectrum antibiotics. The patient requires BiPAP support more frequently and looks somewhat more tired, even though hemodynamically stable. We will continue to target euvolemia, euglycemia, normothermia and oxygen saturation more than 90%. We will continue with ID followup, nephrology followup. The patient's renal function getting progressively worse. We will touch base with Dr. Shahid about whether or not patient would be a candidate for SKIN CARE THERAPIST, but will defer decision about that to him. We will continue with deep venous thrombosis and gastrointestinal prophylaxis. Spoke with patient's --she wants intubation if BPAP eventually fails. ccm time 40 min Guanaco Leal MD cc: [id number] TT: 05/13/2016 13:59:19 Confirmation # [id number] Dictation # [id number] en MTDD
[2016-05-14 05:24] LABS: HEMATOCRIT 27.8 % (42.0-52.0); MEAN CELL VOLUME 86.1 fL (80.0-105.0); MEAN CORPUSCULAR HEMOGLOBIN 28.8 pg (25.0-35.0); MEAN CORPUSCULAR HGB CONC 33.5 g/dl (31.0-37.0); WHITE BLOOD COUNT 10.3 10^3/ul (4.5-11.0)
[2016-05-14 05:40] LABS: ALB/GLOB RATIO 0.7 (1.1-1.8); BILIRUBIN,TOTAL 0.9 mg/dL (0.2-1.3); CALCIUM 7.2 mg/dL (8.4-10.5); PLATELET COUNT 42 10^3/uL (120.0-450.0); POTASSIUM 4.1 mmol/L (3.6-5.0); TOTAL PROTEIN 5.8 g/dL (5.8-8.3)
[2016-05-14 06:17] LABS: ARTERIAL BLOOD GAS HCO3 14.1 mmol/L (21-28); ARTERIAL BLOOD GAS O2 CAPACITY 12.9 mL/dl (16-24); ARTERIAL BLOOD GAS O2 CONTENT 12.8 ML/dl (15-23); ARTERIAL BLOOD GAS PH 7.31 (7.35-7.45); CARBOXYHEMOGLOBIN 2.2 % (0.5-1.5); HHB 0.7 % (0-5); METHEMOGLOBIN 1.1 % (0.0-3.0)
--- NOTE | 2016-05-14 07:09 | PN ---
DATE: 05/14/2016 SUBJECTIVE: The patient appears lethargic this morning. He is not short of breath at rest. PHYSICAL EXAMINATION: VITAL SIGNS: Temperature is 97.9, pulse 109, respirations 19, blood pressure 112/66. Oxygen saturation on BiPAP is 100%. HEENT: Normocephalic, atraumatic. No JVD. CARDIOVASCULAR: Systolic ejection murmur at the lower left sternal border. Questionable S3 gallop. LUNGS: Decreased breath sounds at the bases with minimal crackles. Minimal rhonchi. No wheezing. EXTREMITIES: Mild edema. No cyanosis, no clubbing. Calves are nontender to palpation. GASTROINTESTINAL: Abdomen is soft, remains distended. Bowel sounds are positive. SKIN: No acute rash. NEUROLOGIC: Limited at the present time. IMPRESSION: 1. Respiratory failure. 2. Klebsiella sepsis. 3. Severe cystitis. 4. Severe anemia. 5. Advanced pancreatic cancer. Positive ascites. 6. Bladder cancer. 7. Worsening renal dysfunction. PLAN: The patient remains in the ICU. He is lethargic this morning. I did discuss the case with the night nurse at length. The night nurse stated that the patient had become lethargic over the last half of his shift. A stat arterial blood gas has been ordered. Repeat a.m. labs have also been ordered. Upon review of the most recent laboratory data, it appears that the patient's renal status is worsening. On physical exam, there is no significant bronchospasm noted. In addition, there is no significant alveolar arterial gradient. I will continue with the current nebulizer treatments and inhaled steroids for now. I will also order aspiration precautions -- given the above mental status. Inputs by GI or infectious diseases are noted. The patient remains on antibiotic therapy. There are no temperatures noted. There is no leukocytosis. Input by Reyna Miller (palliative care) is also noted. Clinical status of the patient remains very guarded. Again, the patient's overall status/prognosis remains poor. All are aware. I will discuss the above with the ICU team and Dr. Dorsey this morning. Kenroy Lino MD cc: [phone] TT: 05/14/2016 07:08:44 Confirmation # [id number] Dictation # [id number] hn MTDD
--- NOTE | 2016-05-14 07:31 | CP.PCM.PN ---
<MuluvipulKristian - Last Filed: 05/14/16 08:58> Subjective - Date & Time of Evaluation Date of Evaluation: 05/14/16 Time of Evaluation: 06:15 - Subjective Subjective: PGY4 GI Fellow Progress Note Patient seen and examined bedside this morning. The patient is on BIPAP and arousable but rather drowsy and difficult to maintain focus. Nods head to some questions while falling asleep before answering others. Denies any pain at this moment. 12 system ROS cannot be performed given clinical condition. Objective - Vital Signs/Intake and Output Vital Signs (last 24 hours): Temp Pulse Resp BP Pulse Ox 97.9 F 103 H 24 119/46 L 100 05/14/16 04:00 05/14/16 06:09 05/14/16 06:09 05/14/16 06:00 05/14/16 06:09 Intake and Output: 05/14/16 05/14/16 06:59 18:59 Intake Total 1910 Output Total 20 Balance 1890 - Medications Medications: Current Medications Albuterol/Ipratropium (Duoneb 3 Mg/0.5 Mg (3 Ml) Ud) 3 ml IH [id number] PRN PRN Reason: Shortness Of Breath Last Admin: 05/12/16 16:42 Dose: 3 ml Budesonide (Pulmicort Respules) 0.5 mg IH [id number] [facility] Last Admin: 05/13/16 20:17 Dose: 0.5 mg Chlordiazepoxide (Librium) 25 mg PO Q8 PRN; Protocol PRN Reason: Agitation Last Admin: 05/06/16 05:15 Dose: 25 mg Heparin Sodium (Porcine) (Heparin) 5,000 units SC Q8 WIL PRN Reason: Protocol Last Admin: 05/14/16 05:43 Dose: 5,000 units Meropenem 1 gm/ Sodium (Chloride) 100 mls @ 100 mls/hr IVPB Q12 WIL PRN Reason: Protocol Stop: 05/14/16 11:31 Last Admin: 05/13/16 22:20 Dose: 100 mls/hr Dextrose (Dextrose 5% In Water 1000 Ml) 1,000 mls @ 150 mls/hr IV .Q6H40M WIL Last Admin: 05/14/16 02:26 Dose: 150 mls/hr Famotidine (Pepcid 20mg/50ml Premix) 50 mls @ 100 mls/hr IVPB DAILY [facility] Last Admin: 05/13/16 09:26 Dose: 100 mls/hr Insulin Human Lispro (Humalog Low) 0 units SC ACHS WIL PRN Reason: Protocol Last Admin: 05/13/16 21:24 Dose: Not Given Levalbuterol HCl (Xopenex) 1.25 mg IH TIDRESP [facility] Last Admin: 05/13/16 20:16 Dose: 1.25 mg Saliva Substitute (Saliva Substitute) 0 ml PO 5XD PRN PRN Reason: DRY MOUTH Vancomycin HCl (Vancocin 25 Mg/Ml (Oral Use)) 125 mg PO QID WIL PRN Reason: Protocol Last Admin: 05/13/16 22:21 Dose: 125 mg - Labs Labs: 05/14/16 05:15 05/14/16 05:15 PT 11.4 Seconds (9.9-11.8) 05/08/16 08:30 INR 1.06 (0.93-1.08) 05/08/16 08:30 APTT 40.4 Seconds (23.7-30.8) H 05/13/16 06:00 - Constitutional Appears: Chronically Ill, Other (drowsy but arousable) - Eye Exam Eye Exam: PERRL Additional comments: will not cooperate with EOM testing - ENT Exam ENT Exam: Mucous Membranes Dry - Respiratory Exam Respiratory Exam: Clear to Ausculation Bilateral. absent: Rales, Rhonchi, Wheezes Additional comments: on BIPAP 35% O2 - Cardiovascular Exam Cardiovascular Exam: Tachycardia, REGULAR RHYTHM, +S1, +S2 - GI/Abdominal Exam GI & Abdominal Exam: Distended, Firm, Normal Bowel Sounds. absent: Guarding, Rigid, Tenderness, Organomegaly - Extremities Exam Additional comments: 2+ B/L LE edema - Neurological Exam Neurological Exam: Altered - Skin Skin Exam: Dry, Warm Assessment and Plan - Assessment and Plan (Free Text) Assessment: 65 year old male with history of pancreatic cancer, bladder cancer, HTN, DM who was originally admitted with ADILENE, pyelonephritis, sepsis, C. diff. GI reconsulted for abdominal distention -Pancreatic and bladder cancer -Spontaneous bacterial peritonitis -Recurrent ascites s/p paracentesis -Acute kidney injury -VRE UTI -C diff diarrhea, resolved -HTN -DM Plan: -S/P 5L paracentesis on 05/11/16; high SAAG (>1.1) -Awaiting ascites total protein and cytology -Hepatitis panel pending -Cannot diurese in setting of worsening kidney failure, nephrology following; appreciate input regarding worsening ADILENE -Continue with broad spectrum antibiotics per ID; on PO Vanc (D14) and Meropenem -Swallow eval done; finely chopped food with nectar thick liquids - pt with minimal PO intake -Consider repeat paracentesis or palliative pigtail if family considering this route -Poor prognosis <Sherif Klein - Last Filed: 05/14/16 11:06> Objective - Vital Signs/Intake and Output Vital Signs (last 24 hours): Temp Pulse Resp BP Pulse Ox 97.4 F L 114 H 25 H 94/68 L 99 05/14/16 08:00 05/14/16 10:00 05/14/16 09:41 05/14/16 09:30 05/14/16 09:41 Intake and Output: 05/14/16 05/14/16 06:59 18:59 Intake Total 1910 Output Total 20 Balance 1890 - Medications Medications: Current Medications Albuterol/Ipratropium (Duoneb 3 Mg/0.5 Mg (3 Ml) Ud) 3 ml IH [id number] PRN PRN Reason: Shortness Of Breath Last Admin: 05/12/16 16:42 Dose: 3 ml Budesonide (Pulmicort Respules) 0.5 mg IH [id number] WIL Last Admin: 05/14/16 08:26 Dose: 0.5 mg Chlordiazepoxide (Librium) 25 mg PO Q8 PRN; Protocol PRN Reason: Agitation Last Admin: 05/06/16 05:15 Dose: 25 mg Heparin Sodium (Porcine) (Heparin) 5,000 units SC Q8 WIL PRN Reason: Protocol Last Admin: 05/14/16 05:43 Dose: 5,000 units Meropenem 1 gm/ Sodium (Chloride) 100 mls @ 100 mls/hr IVPB Q12 WIL PRN Reason: Protocol Stop: 05/14/16 11:31 Last Admin: 05/14/16 09:27 Dose: 100 mls/hr Dextrose (Dextrose 5% In Water 1000 Ml) 1,000 mls @ 150 mls/hr IV .Q6H40M [facility] Last Admin: 05/14/16 08:56 Dose: 150 mls/hr Famotidine (Pepcid 20mg/50ml Premix) 50 mls @ 100 mls/hr IVPB DAILY [facility] Last Admin: 05/14/16 09:30 Dose: 100 mls/hr Insulin Human Lispro (Humalog Low) 0 units SC ACHS WIL PRN Reason: Protocol Last Admin: 05/14/16 07:58 Dose: Not Given Levalbuterol HCl (Xopenex) 1.25 mg IH TIDRESP [facility] Last Admin: 05/14/16 08:24 Dose: 1.25 mg Saliva Substitute (Saliva Substitute) 0 ml PO 5XD PRN PRN Reason: DRY MOUTH Vancomycin HCl (Vancocin 25 Mg/Ml (Oral Use)) 125 mg PO QID WIL PRN Reason: Protocol Last Admin: 05/14/16 09:28 Dose: 125 mg - Labs Labs: 05/14/16 05:15 05/14/16 05:15 PT 11.4 Seconds (9.9-11.8) 05/08/16 08:30 INR 1.06 (0.93-1.08) 05/08/16 08:30 APTT 40.4 Seconds (23.7-30.8) H 05/13/16 06:00 Attending/Attestation - Attestation I have personally seen and examined this patient.: Yes I have fully participated in the care of the patient.: Yes I have reviewed all pertinent clinical information, including history, physical exam and plan: Yes Notes (Text): 05/14/16 11:00 I have seen and examined patient with GI fellow. He remains in critical care ICU, lethargic on BIPAP therapy. No acute events overnight, though worsening renal function is noted. He nods appropriately to questions though is not able to participate in any extended conversation due to his worsening clinical condition. There is no reported abdominal pain, nausea, vomiting, fever/ chills. Review of vitals from today shows tachycardia. Pancreatic and bladder cancer HTN / DM Ascites (etiology unclear, SAAG>1.1), +SBP UTI Thrombocytopenia Renal insufficiency C-difficile colitis - Continue with antibiotic therapy as per ID - Patient with labored breathing, likely multifactorial due to progression in disease, uremia, increased abdominal girth. He may benefit from repeat therapeutic paracentesis for symptomatic relief. - Awaiting ascitic fluid cytology and total protein - Continue to monitor LFTs - Follow up nephrology recommendations given progressively worsening renal condition - Strict aspiration precautions and head of bed elevation during attempted feeding given waxing/waning mental status - Overall prognosis remains quite poor, will continue to monitor patient clinical course
--- NOTE | 2016-05-14 07:48 | CP.PCM.PN ---
Subjective - Date & Time of Evaluation Date of Evaluation: 05/14/16 Time of Evaluation: 07:00 - Subjective Subjective: General Surgery Dr. Valencia Pt S&E @bedside. placed on BiPap overnight. removed by pt. on 4L NC. lethargic, but easily arousable. Objective - Vital Signs/Intake and Output Vital Signs (last 24 hours): Temp Pulse Resp BP Pulse Ox 97.9 F 103 H 24 119/46 L 100 05/14/16 04:00 05/14/16 06:09 05/14/16 06:09 05/14/16 06:00 05/14/16 06:09 Intake and Output: Selected Entries 05/13/16 05/14/16 18:07 06:00 Number of Bowel 1 Movements Output, Urine 100 20 Amount [ Urethral (Beard )] - Medications Medications: Current Medications Albuterol/Ipratropium (Duoneb 3 Mg/0.5 Mg (3 Ml) Ud) 3 ml IH [id number] PRN PRN Reason: Shortness Of Breath Last Admin: 05/12/16 16:42 Dose: 3 ml Budesonide (Pulmicort Respules) 0.5 mg IH [id number] WIL Last Admin: 05/13/16 20:17 Dose: 0.5 mg Chlordiazepoxide (Librium) 25 mg PO Q8 PRN; Protocol PRN Reason: Agitation Last Admin: 05/06/16 05:15 Dose: 25 mg Heparin Sodium (Porcine) (Heparin) 5,000 units SC Q8 WIL PRN Reason: Protocol Last Admin: 05/14/16 05:43 Dose: 5,000 units Meropenem 1 gm/ Sodium (Chloride) 100 mls @ 100 mls/hr IVPB Q12 WIL PRN Reason: Protocol Stop: 05/14/16 11:31 Last Admin: 05/13/16 22:20 Dose: 100 mls/hr Dextrose (Dextrose 5% In Water 1000 Ml) 1,000 mls @ 150 mls/hr IV .Q6H40M [facility] Last Admin: 05/14/16 02:26 Dose: 150 mls/hr Famotidine (Pepcid 20mg/50ml Premix) 50 mls @ 100 mls/hr IVPB DAILY [facility] Last Admin: 05/13/16 09:26 Dose: 100 mls/hr Insulin Human Lispro (Humalog Low) 0 units SC ACHS WIL PRN Reason: Protocol Last Admin: 05/13/16 21:24 Dose: Not Given Levalbuterol HCl (Xopenex) 1.25 mg IH TIDRESP [facility] Last Admin: 05/13/16 20:16 Dose: 1.25 mg Saliva Substitute (Saliva Substitute) 0 ml PO 5XD PRN PRN Reason: DRY MOUTH Vancomycin HCl (Vancocin 25 Mg/Ml (Oral Use)) 125 mg PO QID WIL PRN Reason: Protocol Last Admin: 05/13/16 22:21 Dose: 125 mg - Labs Labs: 05/14/16 05:15 05/14/16 05:15 Laboratory Tests 05/14/16 05/14/16 05:15 06:14 pCO2 28 L pO2 118.0 H HCO3 14.1 L ABG pH 7.31 L ABG Total CO2 15.0 L ABG O2 Saturation 99.3 H ABG O2 Content 12.8 L ABG Base Excess -11.0 L ABG Hemoglobin 9.3 L ABG Carboxyhemoglobin 2.2 H FiO2 35.0 Calcium 7.2 L Total Bilirubin 0.9 AST 30 ALT 29 Alkaline Phosphatase 119 Total Protein 5.8 Albumin 2.4 L Microbiology 05/09/16 14:15 Abdominal Fluid Gram Stain - Final 05/09/16 14:15 Abdominal Fluid Body Fluid Culture - Final No growth. 05/09/16 14:15 Abdominal Fluid Anaerobic Culture - Final 05/09/16 14:15 Abdominal Fluid NO ANAEROBES ISOLATED. 05/09/16 14:00 Urine,Beard Urine Culture - Final Vancomycin Resistant E.faecium 05/09/16 14:15 Abdominal Fluid Fungal Culture - Preliminary 05/09/16 10:18 Blood-Thru Central Line Blood Culture - Preliminary 05/09/16 10:18 Blood-Thru Central Line NO GROWTH AFTER 4 DAYS 05/09/16 10:18 Blood-Thru Central Line Blood Culture - Preliminary 05/09/16 10:18 Blood-Thru Central Line NO GROWTH AFTER 4 DAYS Selected Entries 05/13/16 05/14/16 18:07 06:00 Number of Bowel 1 Movements Output, Urine 100 20 Amount [ Urethral (Beard )] - Constitutional Appears: Toxic, No Acute Distress, Confused - Head Exam Head Exam: NORMAL INSPECTION - Eye Exam Eye Exam: Normal appearance - ENT Exam ENT Exam: Mucous Membranes Moist - Respiratory Exam Respiratory Exam: NORMAL BREATHING PATTERN. absent: Accessory Muscle Use, Respiratory Distress - Cardiovascular Exam Cardiovascular Exam: Tachycardia, REGULAR RHYTHM - GI/Abdominal Exam GI & Abdominal Exam: Distended, Soft - Neurological Exam Neurological Exam: Alert, Awake - Skin Skin Exam: Dry, Intact, Warm Assessment and Plan - Assessment and Plan (Free Text) Assessment: 65 y/o M w/ bacteremia thought to be 2/2 infected portacath - OR cancelled due to pt instability - confirm port removal w/ medical team - cont current medical management - OR once stable Pt discussed w/ Dr. Erik Camilo DO PGY1
[2016-05-14] MEDS: Insulin Lispro (humaLOG) LOW Coverage SC SCH ×4 (07:58→22:50)
[2016-05-14] MEDS: Levalbuterol 1.25 MG/3 ML Inhal Soln UD IH SCH ×3 (08:24→21:26)
[2016-05-14] MEDS: Budesonide 0.5 mg/2 ml Inhal Susp UD IH SCH ×2 (08:26→21:27)
--- NOTE | 2016-05-14 09:25 | PN ---
DATE: 05/14/2016 I saw the patient in the intensive care unit. He is on the BiPAP. He has got a Beard catheter in. M ultiple medications are infusing. He is not doing well overall, but trying not to intubate him again . He has multiple consults from cardiology to palliative care to renal to oncology to infectious dis ease to urology to pulmonology, to GI, surgery. PHYSICAL EXAMINATION: VITAL SIGNS: He has a 97.9 temp, 103 pulse, 24 respiratory rate, 100 O2 sat on BiPAP, and a blood pr essure of 111/70. NEUROLOGIC: He is alert. He is not talking, but he is nodding yes/no to my questions. He does not appear to be in pain. He denied pain. MEDICATIONS: He is currently on dextrose, DuoNeb, heparin, insulin, Librium, Merrem, Pepcid, Pulmico rt, saliva, vancomycin, and Xopenex. LABORATORY DATA: He has a 10.3 white count, 9.3 hemoglobin, 27.8 hematocrit with 42 platelets. Sodi um 137. Potassium is 4.1. BUN is up to 126, and his creatinine is up to 4.4. He is in acute renal injury and failure. His GFR is down to 13. We will call in renal and get their opinion. Sugar is 1 56. Calcium 7.2. Total bili is 0.9. AST is 30. ALT is 20. Alk phos is 119. Total protein is 5.8 . It is very possible his organs are starting to shut down. He is here with multiple problems from acu te respiratory failure to acute renal failure, CHF, COPD. They took off 5 liters on a centesis. He has pancreatic cancer, SIRS, NSTEMI, anemia, UTI, and family wants everything done. He wants everyt alfonso done. I will do the best we can, as I do think he is starting to break down and fail. I will d iscuss this again with the at length. In the meantime, we will do everything we can to get him going. I will check his labs tomorrow. Melquiades Dorsey DO cc: [phone] TT: 05/14/2016 09:24:13 Confirmation # [id number] Dictation # [id number]
[2016-05-14] MEDS: Meropenem 1 GM in Sodium Chloride 0.9% 100 ML IVPB SCH (09:27)
[2016-05-14] MEDS: Vancomycin 25 MG/ML PO SCH ×4 (09:28→23:00)
[2016-05-14] MEDS: Famotidine 20mg/50ml 50 ML IVPB SCH (09:30)
--- NOTE | 2016-05-14 09:52 | CP.PCM.PN ---
Subjective - Date & Time of Evaluation Date of Evaluation: 05/14/16 Time of Evaluation: 08:40 - Subjective Subjective: Patient is somewhat lethargic but easily arousable. No fevers currently. Objective - Vital Signs/Intake and Output Vital Signs (last 24 hours): Temp Pulse Resp BP Pulse Ox 97.9 F 103 H 24 119/46 L 100 05/14/16 04:00 05/14/16 06:09 05/14/16 06:09 05/14/16 06:00 05/14/16 06:09 Intake and Output: 05/14/16 05/14/16 06:59 18:59 Intake Total 1910 Output Total 20 Balance 1890 - Medications Medications: Current Medications Albuterol/Ipratropium (Duoneb 3 Mg/0.5 Mg (3 Ml) Ud) 3 ml IH [id number] PRN PRN Reason: Shortness Of Breath Last Admin: 05/12/16 16:42 Dose: 3 ml Budesonide (Pulmicort Respules) 0.5 mg IH [id number] [facility] Last Admin: 05/13/16 20:17 Dose: 0.5 mg Chlordiazepoxide (Librium) 25 mg PO Q8 PRN; Protocol PRN Reason: Agitation Last Admin: 05/06/16 05:15 Dose: 25 mg Heparin Sodium (Porcine) (Heparin) 5,000 units SC Q8 WIL PRN Reason: Protocol Last Admin: 05/14/16 05:43 Dose: 5,000 units Meropenem 1 gm/ Sodium (Chloride) 100 mls @ 100 mls/hr IVPB Q12 WIL PRN Reason: Protocol Stop: 05/14/16 11:31 Last Admin: 05/13/16 22:20 Dose: 100 mls/hr Dextrose (Dextrose 5% In Water 1000 Ml) 1,000 mls @ 150 mls/hr IV .Q6H40M [facility] Last Admin: 05/14/16 02:26 Dose: 150 mls/hr Famotidine (Pepcid 20mg/50ml Premix) 50 mls @ 100 mls/hr IVPB DAILY [facility] Last Admin: 05/13/16 09:26 Dose: 100 mls/hr Insulin Human Lispro (Humalog Low) 0 units SC ACHS WIL PRN Reason: Protocol Last Admin: 05/14/16 07:58 Dose: Not Given Levalbuterol HCl (Xopenex) 1.25 mg IH TIDRESP [facility] Last Admin: 05/13/16 20:16 Dose: 1.25 mg Saliva Substitute (Saliva Substitute) 0 ml PO 5XD PRN PRN Reason: DRY MOUTH Vancomycin HCl (Vancocin 25 Mg/Ml (Oral Use)) 125 mg PO QID WIL PRN Reason: Protocol Last Admin: 05/13/16 22:21 Dose: 125 mg - Labs Labs: 05/14/16 05:15 05/14/16 05:15 PT 11.4 Seconds (9.9-11.8) 05/08/16 08:30 INR 1.06 (0.93-1.08) 05/08/16 08:30 APTT 40.4 Seconds (23.7-30.8) H 05/13/16 06:00 - Constitutional Appears: No Acute Distress, Other (somewhat lethargic, but easily arousable) - Head Exam Head Exam: NORMAL INSPECTION - Neck Exam Neck Exam: absent: Meningismus - Respiratory Exam Respiratory Exam: Decreased Breath Sounds Additional comments: right anterior chest wall port intact - Cardiovascular Exam Cardiovascular Exam: +S1, +S2 - GI/Abdominal Exam GI & Abdominal Exam: Soft. absent: Tenderness Assessment and Plan - Assessment and Plan (Free Text) Plan: Assessment Severe sepsis with acute renal failure and hypoxic respiratory failure (S/P intubation) probably secondary to persistent Klebsiella pneumoniae bacteremia probably from severe cystitis and pyelonephritis, R/O port infection, R/O abdominal compartment syndrome with ascites S/P paracentesis POD #5; also with C diff associated diarrhea, clinically improving; has Micrococcus species in the 05/04/2016 blood cx from the port, which is probably a contaminant (1 out of 4 bottles, and it is unlike other coagulase negative staph) acute anemia Pancreatic cancer S/P chemotherapy and radiation therapy and surgery HTN DM obesity with BMI 34 Plan continue Meropenem (04/29, 04/30, 05/01 cx are positive, now the 05/04 cx are negative in terms of the Klebsiella and the repeat on 05/09 is negative); CT Abdomen and pelvis reviewed; continue PO Vancomycin (day 12 of 14); 2D echo repeated 05/06/2016 still does not show vegetations; follow up repeat blood cx done did not show persistence of Micrococcus in the blood Ascitic fluid cultures are negative would consider removal of the port because of the persistent Klebsiella bacteremia when feasible (also there needs to be plan to place a new port if the patient still needs chemotherapy) - we are awaiting removal of the port Will continue to follow clinically Overall prognosis is poor
--- NOTE | 2016-05-14 11:30 | CP.CCUPN ---
<[place] Hi - Last Filed: 05/14/16 11:45> CCU Subjective - Physician Review Subjective (Free Text): 05/14/16 11:26 Pt s&e. ABADEON. Pt on BIPAP at night. Currently on NC now. Pt arousable. Follows commands. Lethargic but is better today. c/O SOB. Denies CP. CCU Objective - Vital Signs / Intake & Output Vital Signs (Last 4 hours): Vital Signs Temp Pulse Resp BP Pulse Ox 05/14/16 10:00 114 H 05/14/16 09:41 114 H 25 H 99 05/14/16 09:30 113 H 25 H 94/68 L 97 05/14/16 09:01 119 H 19 97/65 L 86 L 05/14/16 09:00 119 H 22 95 05/14/16 08:30 119 H 20 84/58 L 80 L 05/14/16 08:00 97.4 F L 115 H 44 H 135/66 97 05/14/16 07:31 108 H 27 H 139/113 H 100 Intake and Output (Last 8hrs): Intake & Output 05/13/16 05/14/16 05/14/16 22:59 06:59 14:59 Intake Total 1920 1910 Output Total 100 20 Balance 1820 1890 Weight 260 lb 14.4 oz Intake: IV 1800 1900 Right Subclavian 1800 port 1800 merrem 100 Oral 120 10 Output: Urine 100 20 Urethral (Beard) 100 20 Oral Regurgitation 0 Other: Voiding Method Indwelling Catheter Indwelling Catheter # Bowel Movements 1 - Physical Exam Head: Positive for: Atraumatic, Normocephalic Pupils: Positive for: PERRL Extroacular Muscles: Positive for: EOMI Conjunctiva: Positive for: Normal Ears: Positive for: Normal, NORMAL TM, Normal Canal. Negative for: Erythema Mouth: Positive for: Dry Neck: Positive for: Normal Range of Motion Respiratory/Chest: Positive for: Clear to Auscultation, Good Air Exchange, Decreased Breath Sounds. Negative for: Respiratory Distress, Accessory Muscle Use, Rales, Rhonchi Cardiovascular: Positive for: Normal S1, S2, Tachycardic Abdomen: Positive for: Distention, Normal Bowel Sounds, Other (Fluids wave ). Negative for: Tenderness, Peritoneal Signs, Rebound, Guarding, Mass/ Organomegaly Genitourinary Male: Positive for: Other (Beard in place.) Back: Positive for: Normal Inspection Upper Extremity: Positive for: Normal Inspection. Negative for: Cyanosis, Edema Lower Extremity: Positive for: Normal Inspection, Edema Neurological: Positive for: GCS=15, CN II-XII Intact Skin: Positive for: Warm, Dry, Pale, Other (Chronic venous stasis dermatitis changes to b/l lower extremities). Negative for: Rashes Psychiatric: Positive for: Alert, Oriented x 3 - Medications Active Medications: Active Medications Generic Name Dose Route Start Last Admin Trade Name Freq PRN Reason Stop Dose Admin Albuterol/Ipratropium 3 ml 05/08/16 09:41 05/12/16 16:42 Duoneb 3 Mg/0.5 Mg (3 Ml) Ud IH 3 ml [id number] PRN Administration Shortness Of Breath Budesonide 0.5 mg 05/07/16 20:00 05/14/16 08:26 Pulmicort Respules IH 0.5 mg [id number] WIL Administration Chlordiazepoxide 25 mg 04/29/16 11:52 05/06/16 05:15 Librium PO 25 mg Q8 PRN Administration Agitation Protocol Heparin Sodium (Porcine) 5,000 units 05/12/16 22:30 05/14/16 05:43 Heparin SC 5,000 units Q8 WIL Administration Protocol Meropenem 1 gm/ Sodium 100 mls @ 100 mls/hr 04/30/16 11:30 05/14/16 09:27 Chloride IVPB 05/14/16 11:31 100 mls/hr Q12 WIL Administration Protocol Dextrose 1,000 mls @ 150 mls/hr 05/11/16 13:45 05/14/16 08:56 Dextrose 5% In Water 1000 Ml IV 150 mls/hr .[id number] WIL Administration Famotidine 50 mls @ 100 mls/hr 05/12/16 10:00 05/14/16 09:30 Pepcid 20mg/50ml Premix IVPB 100 mls/hr DAILY WIL Administration Insulin Human Lispro 0 units 04/29/16 11:30 05/14/16 07:58 Humalog Low SC Not Given ACHS WIL Protocol Levalbuterol HCl 1.25 mg 05/08/16 08:00 05/14/16 08:24 Xopenex IH 1.25 mg TIDRESP WIL Administration Saliva Substitute 0 ml 04/30/16 14:00 Saliva Substitute PO 5XD PRN DRY MOUTH Vancomycin HCl 125 mg 05/01/16 10:00 05/14/16 09:28 Vancocin 25 Mg/Ml (Oral Use) PO 125 mg QID WIL Administration Protocol - Patient Studies Lab Studies: Microbiology Studies 05/09/16 10:18 Blood Culture - Final Blood-Thru Central Line NO GROWTH AFTER 5 DAYS Gram Stain - Final TEST NOT PERFORMED 05/09/16 10:18 Blood Culture - Final Blood-Thru Central Line NO GROWTH AFTER 5 DAYS Gram Stain - Final TEST NOT PERFORMED 05/09/16 14:15 Gram Stain - Final Abdominal Fluid Body Fluid Culture - Final No growth. Lab Studies 05/14/16 05/14/16 05/13/16 Range/Units 06:14 05:15 21:19 WBC 10.3 D (4.5-11.0) 10^3/ul RBC 3.23 L (3.5-6.1) 10^6/uL Hgb 9.3 L (14.0-18.0) gm/dL Hct 27.8 L (42.0-52.0) % MCV 86.1 (80.0-105.0) fL MCH 28.8 (25.0-35.0) pg MCHC 33.5 (31.0-37.0) g/dl RDW 17.0 H (11.5-14.5) % Plt Count 42 L* (120.0-450.0) 10^3/uL pCO2 28 L (35-45) mm/Hg pO2 118.0 H (80-100) mm/Hg HCO3 14.1 L (21-28) mmol/L ABG pH 7.31 L (7.35-7.45) ABG Total CO2 15.0 L (22-28) mmol.L ABG O2 Saturation 99.3 H (95-98) % ABG O2 Content 12.8 L (15-23) ML/dl ABG Base Excess -11.0 L (-2.0-3.0) mmol/L ABG Hemoglobin 9.3 L (11.7-17.4) g/dL ABG Carboxyhemoglobin 2.2 H (0.5-1.5) % POC ABG HHb (Measured) 0.7 (0-5) % ABG Methemoglobin 1.1 (0.0-3.0) % ABG O2 Capacity 12.9 L (16-24) mL/dl Hgb O2 Saturation 96.0 (95.0-98.0) % FiO2 35.0 % Sodium 137 (132-148) mmol/L Potassium 4.1 (3.6-5.0) mmol/L Chloride 103 (98-107) mmol/L Carbon Dioxide 19 L (21-33) mmol/L Anion Gap 19 (10-20) BUN 126 H* (7-21) mg/dL Creatinine 4.4 H (0.5-1.4) mg/dL Est GFR ( Amer) 16 Est GFR (Non-Af Amer) 13 POC Glucose (mg/dL) 197 H (65-110) mg/dL Random Glucose 156 H (70-110) mg/dL Calcium 7.2 L (8.4-10.5) mg/dL Total Bilirubin 0.9 (0.2-1.3) mg/dL AST 30 (15-59) U/L ALT 29 (7-56) U/L Alkaline Phosphatase 119 (38-133) U/L Total Protein 5.8 (5.8-8.3) g/dL Albumin 2.4 L (3.0-4.8) g/dL Globulin 3.4 gm/dL Albumin/Globulin Ratio 0.7 L (1.1-1.8) Hepatitis A IgM Ab (NEGATIVE) Hep Bs Antigen (NEGATIVE) Hep B Core IgM Ab (NEGATIVE) Hepatitis C Antibody (NEGATIVE) Crossmatch 05/13/16 05/13/16 05/13/16 Range/Units 17:08 10:21 08:30 WBC (4.5-11.0) 10^3/ul RBC (3.5-6.1) 10^6/uL Hgb (14.0-18.0) gm/dL Hct (42.0-52.0) % MCV (80.0-105.0) fL MCH (25.0-35.0) pg MCHC (31.0-37.0) g/dl RDW (11.5-14.5) % Plt Count (120.0-450.0) 10^3/uL pCO2 (35-45) mm/Hg pO2 (80-100) mm/Hg HCO3 (21-28) mmol/L ABG pH (7.35-7.45) ABG Total CO2 (22-28) mmol.L ABG O2 Saturation (95-98) % ABG O2 Content (15-23) ML/dl ABG Base Excess (-2.0-3.0) mmol/L ABG Hemoglobin (11.7-17.4) g/dL ABG Carboxyhemoglobin (0.5-1.5) % POC ABG HHb (Measured) (0-5) % ABG Methemoglobin (0.0-3.0) % ABG O2 Capacity (16-24) mL/dl Hgb O2 Saturation (95.0-98.0) % FiO2 % Sodium (132-148) mmol/L Potassium (3.6-5.0) mmol/L Chloride (98-107) mmol/L Carbon Dioxide (21-33) mmol/L Anion Gap (10-20) BUN (7-21) mg/dL Creatinine (0.5-1.4) mg/dL Est GFR ( Amer) Est GFR (Non-Af Amer) POC Glucose (mg/dL) 177 H 175 H (65-110) mg/dL Random Glucose (70-110) mg/dL Calcium (8.4-10.5) mg/dL Total Bilirubin (0.2-1.3) mg/dL AST (15-59) U/L ALT (7-56) U/L Alkaline Phosphatase (38-133) U/L Total Protein (5.8-8.3) g/dL Albumin (3.0-4.8) g/dL Globulin gm/dL Albumin/Globulin Ratio (1.1-1.8) Hepatitis A IgM Ab Negative (NEGATIVE) Hep Bs Antigen Negative (NEGATIVE) Hep B Core IgM Ab Negative (NEGATIVE) Hepatitis C Antibody Negative (NEGATIVE) Crossmatch 05/13/16 05/10/16 Range/Units 06:26 11:08 WBC (4.5-11.0) 10^3/ul RBC (3.5-6.1) 10^6/uL Hgb (14.0-18.0) gm/dL Hct (42.0-52.0) % MCV (80.0-105.0) fL MCH (25.0-35.0) pg MCHC (31.0-37.0) g/dl RDW (11.5-14.5) % Plt Count (120.0-450.0) 10^3/uL pCO2 (35-45) mm/Hg pO2 (80-100) mm/Hg HCO3 (21-28) mmol/L ABG pH (7.35-7.45) ABG Total CO2 (22-28) mmol.L ABG O2 Saturation (95-98) % ABG O2 Content (15-23) ML/dl ABG Base Excess (-2.0-3.0) mmol/L ABG Hemoglobin (11.7-17.4) g/dL ABG Carboxyhemoglobin (0.5-1.5) % POC ABG HHb (Measured) (0-5) % ABG Methemoglobin (0.0-3.0) % ABG O2 Capacity (16-24) mL/dl Hgb O2 Saturation (95.0-98.0) % FiO2 % Sodium (132-148) mmol/L Potassium (3.6-5.0) mmol/L Chloride (98-107) mmol/L Carbon Dioxide (21-33) mmol/L Anion Gap (10-20) BUN (7-21) mg/dL Creatinine (0.5-1.4) mg/dL Est GFR ( Amer) Est GFR (Non-Af Amer) POC Glucose (mg/dL) 218 H (65-110) mg/dL Random Glucose (70-110) mg/dL Calcium (8.4-10.5) mg/dL Total Bilirubin (0.2-1.3) mg/dL AST (15-59) U/L ALT (7-56) U/L Alkaline Phosphatase (38-133) U/L Total Protein (5.8-8.3) g/dL Albumin (3.0-4.8) g/dL Globulin gm/dL Albumin/Globulin Ratio (1.1-1.8) Hepatitis A IgM Ab (NEGATIVE) Hep Bs Antigen (NEGATIVE) Hep B Core IgM Ab (NEGATIVE) Hepatitis C Antibody (NEGATIVE) Crossmatch See Detail Laboratory Results - last 24 hr 05/10/16 05/13/16 05/13/16 11:08 06:26 08:30 WBC RBC Hgb Hct MCV MCH MCHC RDW Plt Count pCO2 pO2 HCO3 ABG pH ABG Total CO2 ABG O2 Saturation ABG O2 Content ABG Base Excess ABG Hemoglobin ABG Carboxyhemoglobin POC ABG HHb (Measured) ABG Methemoglobin ABG O2 Capacity Hgb O2 Saturation FiO2 Sodium Potassium Chloride Carbon Dioxide Anion Gap BUN Creatinine Est GFR ( Amer) Est GFR (Non-Af Amer) POC Glucose (mg/dL) 218 H Random Glucose Calcium Total Bilirubin AST ALT Alkaline Phosphatase Total Protein Albumin Globulin Albumin/Globulin Ratio Hepatitis A IgM Ab Negative Hep Bs Antigen Negative Hep B Core IgM Ab Negative Hepatitis C Antibody Negative Crossmatch See Detail 05/13/16 05/13/16 05/13/16 10:21 17:08 21:19 WBC RBC Hgb Hct MCV MCH MCHC RDW Plt Count pCO2 pO2 HCO3 ABG pH ABG Total CO2 ABG O2 Saturation ABG O2 Content ABG Base Excess ABG Hemoglobin ABG Carboxyhemoglobin POC ABG HHb (Measured) ABG Methemoglobin ABG O2 Capacity Hgb O2 Saturation FiO2 Sodium Potassium Chloride Carbon Dioxide Anion Gap BUN Creatinine Est GFR ( Amer) Est GFR (Non-Af Amer) POC Glucose (mg/dL) 175 H 177 H 197 H Random Glucose Calcium Total Bilirubin AST ALT Alkaline Phosphatase Total Protein Albumin Globulin Albumin/Globulin Ratio Hepatitis A IgM Ab Hep Bs Antigen Hep B Core IgM Ab Hepatitis C Antibody Crossmatch 05/14/16 05/14/16 05:15 06:14 WBC 10.3 D RBC 3.23 L Hgb 9.3 L Hct 27.8 L MCV 86.1 MCH 28.8 MCHC 33.5 RDW 17.0 H Plt Count 42 L* pCO2 28 L pO2 118.0 H HCO3 14.1 L ABG pH 7.31 L ABG Total CO2 15.0 L ABG O2 Saturation 99.3 H ABG O2 Content 12.8 L ABG Base Excess -11.0 L ABG Hemoglobin 9.3 L ABG Carboxyhemoglobin 2.2 H POC ABG HHb (Measured) 0.7 ABG Methemoglobin 1.1 ABG O2 Capacity 12.9 L Hgb O2 Saturation 96.0 FiO2 35.0 Sodium 137 Potassium 4.1 Chloride 103 Carbon Dioxide 19 L Anion Gap 19 BUN 126 H* Creatinine 4.4 H Est GFR ( Amer) 16 Est GFR (Non-Af Amer) 13 POC Glucose (mg/dL) Random Glucose 156 H Calcium 7.2 L Total Bilirubin 0.9 AST 30 ALT 29 Alkaline Phosphatase 119 Total Protein 5.8 Albumin 2.4 L Globulin 3.4 Albumin/Globulin Ratio 0.7 L Hepatitis A IgM Ab Hep Bs Antigen Hep B Core IgM Ab Hepatitis C Antibody Crossmatch Fingerstick Blood Sugar Results: 170 Review of Systems - Constitutional Constitutional: absent: Fever, Chills Critical Care Progress Note - Ventilator Checklist Head of Bed 30 Degrees: Yes Daily Sedation Vacation: No - Nutrition Nutrition: Nutrition Category Date Time Status Dysphagia/Modified Consistency Diet [DIET] Diets 05/10/16 Dinner Ordered Assessment/Plan - Assessment and Plan (Free Text) Assessment: 65 y/o M with PMH of Pancreatic Cancer, Bladder Cancer, HTN, and DM presents the ICU with hypoxmic respiratory failure 2/2 severe sepsis 2/2 SBP s/p extubation currently on bipap. Repeat blood cultures are negative. Now with worsening kidney function with BUN 126 and Cr 4.4. Plan: Neuro: - lethergic - extubated - Head CT (05/07/16) shows right frontoparietal encephalomalacia. Acute on chronic infarction cannot be excluded. - Monitor for acute mental status change Cardio: - Hemodynamically stable - Keep MAP >65 - Initial Echocardiogram shows normal EF with no vegetations - Cardiology following Pulm: - bipap 35% /12/6 - Continue to keep O2 sat >90% - Pulmonology, Dr. Lino following -Nebulizer -Steroid -Aspiration precaution GI: - s/p Paracentesis: 8L out - significant for SBP - ascites fluid culture is negative after 24 hours - on meropenum and vanco - C. diff antigen positive - GI prophylaxis - Passed swallow eval: nectar thick liquid - GI following, Dr. Zavala Nephro: - Creatinine: 4.4, [id number] - Maintain euvolemia - Strict I's and O's - Replete electrolytes as needed - Nephrology consulted, Dr. Shahid - Possible HD: F/U family ID/Heme: - Afebrile - C. diff antigen - Continue Merrem and vancomycin as per ID - Surgery following for possible port removal, which is possible source of infection - ID consulted, Dr. Erickson - Maintain normothermia - Continue to transfuse to keep Hg above 7 Endo: - Insulin sliding scale - Check glucose levels q6h - Maintain euglycemia Seen, reviewed, and discussed with attending <[place] Leal - Last Filed: 05/14/16 16:44> CCU Objective - Vital Signs / Intake & Output Intake and Output (Last 8hrs): Intake & Output 05/14/16 05/14/16 05/14/16 06:59 14:59 22:59 Intake Total 1910 Output Total 20 Balance 1890 Weight 260 lb 14.4 oz Intake: IV 1900 Right Subclavian 1800 merrem 100 Oral 10 Output: Urine 20 Urethral (Beard) 20 Other: Voiding Method Indwelling Catheter # Bowel Movements 1 - Medications Active Medications: Active Medications Generic Name Dose Route Start Last Admin Trade Name Freq PRN Reason Stop Dose Admin Albuterol/Ipratropium 3 ml 05/08/16 09:41 05/12/16 16:42 Duoneb 3 Mg/0.5 Mg (3 Ml) Ud IH 3 ml [id number] PRN Administration Shortness Of Breath Budesonide 0.5 mg 05/07/16 20:00 05/14/16 08:26 Pulmicort Respules IH 0.5 mg [id number] WIL Administration Chlordiazepoxide 25 mg 04/29/16 11:52 05/06/16 05:15 Librium PO 25 mg Q8 PRN Administration Agitation Protocol Heparin Sodium (Porcine) 5,000 units 05/12/16 22:30 05/14/16 13:00 Heparin SC 5,000 units Q8 WIL Administration Protocol Dextrose 1,000 mls @ 150 mls/hr 05/11/16 13:45 05/14/16 08:56 Dextrose 5% In Water 1000 Ml IV 150 mls/hr .[id number] WIL Administration Famotidine 50 mls @ 100 mls/hr 05/12/16 10:00 05/14/16 09:30 Pepcid 20mg/50ml Premix IVPB 100 mls/hr DAILY WIL Administration Insulin Human Lispro 0 units 04/29/16 11:30 05/14/16 12:58 Humalog Low SC 1 units ACHS WIL Administration Protocol Levalbuterol HCl 1.25 mg 05/08/16 08:00 05/14/16 13:09 Xopenex IH 1.25 mg TIDRESP WIL Administration Saliva Substitute 0 ml 04/30/16 14:00 Saliva Substitute PO 5XD PRN DRY MOUTH Vancomycin HCl 125 mg 05/01/16 10:00 05/14/16 13:01 Vancocin 25 Mg/Ml (Oral Use) PO 125 mg QID WIL Administration Protocol - Patient Studies Lab Studies: Microbiology Studies 05/09/16 10:18 Blood Culture - Final Blood-Thru Central Line NO GROWTH AFTER 5 DAYS Gram Stain - Final TEST NOT PERFORMED 05/09/16 10:18 Blood Culture - Final Blood-Thru Central Line NO GROWTH AFTER 5 DAYS Gram Stain - Final TEST NOT PERFORMED Lab Studies 05/14/16 05/14/16 05/14/16 Range/Units 16:22 11:27 07:16 WBC (4.5-11.0) 10^3/ul RBC (3.5-6.1) 10^6/uL Hgb (14.0-18.0) gm/dL Hct (42.0-52.0) % MCV (80.0-105.0) fL MCH (25.0-35.0) pg MCHC (31.0-37.0) g/dl RDW (11.5-14.5) % Plt Count (120.0-450.0) 10^3/uL pCO2 (35-45) mm/Hg pO2 (80-100) mm/Hg HCO3 (21-28) mmol/L ABG pH (7.35-7.45) ABG Total CO2 (22-28) mmol.L ABG O2 Saturation (95-98) % ABG O2 Content (15-23) ML/dl ABG Base Excess (-2.0-3.0) mmol/L ABG Hemoglobin (11.7-17.4) g/dL ABG Carboxyhemoglobin (0.5-1.5) % POC ABG HHb (Measured) (0-5) % ABG Methemoglobin (0.0-3.0) % ABG O2 Capacity (16-24) mL/dl Hgb O2 Saturation (95.0-98.0) % FiO2 % Sodium (132-148) mmol/L Potassium (3.6-5.0) mmol/L Chloride (98-107) mmol/L Carbon Dioxide (21-33) mmol/L Anion Gap (10-20) BUN (7-21) mg/dL Creatinine (0.5-1.4) mg/dL Est GFR ( Amer) Est GFR (Non-Af Amer) POC Glucose (mg/dL) 250 H 191 H 170 H (65-110) mg/dL Random Glucose (70-110) mg/dL Calcium (8.4-10.5) mg/dL Total Bilirubin (0.2-1.3) mg/dL AST (15-59) U/L ALT (7-56) U/L Alkaline Phosphatase (38-133) U/L Total Protein (5.8-8.3) g/dL Albumin (3.0-4.8) g/dL Globulin gm/dL Albumin/Globulin Ratio (1.1-1.8) Hepatitis A IgM Ab (NEGATIVE) Hep Bs Antigen (NEGATIVE) Hep B Core IgM Ab (NEGATIVE) Hepatitis C Antibody (NEGATIVE) 05/14/16 05/14/16 05/13/16 Range/Units 06:14 05:15 21:19 WBC 10.3 D (4.5-11.0) 10^3/ul RBC 3.23 L (3.5-6.1) 10^6/uL Hgb 9.3 L (14.0-18.0) gm/dL Hct 27.8 L (42.0-52.0) % MCV 86.1 (80.0-105.0) fL MCH 28.8 (25.0-35.0) pg MCHC 33.5 (31.0-37.0) g/dl RDW 17.0 H (11.5-14.5) % Plt Count 42 L* (120.0-450.0) 10^3/uL pCO2 28 L (35-45) mm/Hg pO2 118.0 H (80-100) mm/Hg HCO3 14.1 L (21-28) mmol/L ABG pH 7.31 L (7.35-7.45) ABG Total CO2 15.0 L (22-28) mmol.L ABG O2 Saturation 99.3 H (95-98) % ABG O2 Content 12.8 L (15-23) ML/dl ABG Base Excess -11.0 L (-2.0-3.0) mmol/L ABG Hemoglobin 9.3 L (11.7-17.4) g/dL ABG Carboxyhemoglobin 2.2 H (0.5-1.5) % POC ABG HHb (Measured) 0.7 (0-5) % ABG Methemoglobin 1.1 (0.0-3.0) % ABG O2 Capacity 12.9 L (16-24) mL/dl Hgb O2 Saturation 96.0 (95.0-98.0) % FiO2 35.0 % Sodium 137 (132-148) mmol/L Potassium 4.1 (3.6-5.0) mmol/L Chloride 103 (98-107) mmol/L Carbon Dioxide 19 L (21-33) mmol/L Anion Gap 19 (10-20) BUN 126 H* (7-21) mg/dL Creatinine 4.4 H (0.5-1.4) mg/dL Est GFR ( Amer) 16 Est GFR (Non-Af Amer) 13 POC Glucose (mg/dL) 197 H (65-110) mg/dL Random Glucose 156 H (70-110) mg/dL Calcium 7.2 L (8.4-10.5) mg/dL Total Bilirubin 0.9 (0.2-1.3) mg/dL AST 30 (15-59) U/L ALT 29 (7-56) U/L Alkaline Phosphatase 119 (38-133) U/L Total Protein 5.8 (5.8-8.3) g/dL Albumin 2.4 L (3.0-4.8) g/dL Globulin 3.4 gm/dL Albumin/Globulin Ratio 0.7 L (1.1-1.8) Hepatitis A IgM Ab (NEGATIVE) Hep Bs Antigen (NEGATIVE) Hep B Core IgM Ab (NEGATIVE) Hepatitis C Antibody (NEGATIVE) 05/13/16 05/13/16 05/13/16 Range/Units 17:08 10:21 08:30 WBC (4.5-11.0) 10^3/ul RBC (3.5-6.1) 10^6/uL Hgb (14.0-18.0) gm/dL Hct (42.0-52.0) % MCV (80.0-105.0) fL MCH (25.0-35.0) pg MCHC (31.0-37.0) g/dl RDW (11.5-14.5) % Plt Count (120.0-450.0) 10^3/uL pCO2 (35-45) mm/Hg pO2 (80-100) mm/Hg HCO3 (21-28) mmol/L ABG pH (7.35-7.45) ABG Total CO2 (22-28) mmol.L ABG O2 Saturation (95-98) % ABG O2 Content (15-23) ML/dl ABG Base Excess (-2.0-3.0) mmol/L ABG Hemoglobin (11.7-17.4) g/dL ABG Carboxyhemoglobin (0.5-1.5) % POC ABG HHb (Measured) (0-5) % ABG Methemoglobin (0.0-3.0) % ABG O2 Capacity (16-24) mL/dl Hgb O2 Saturation (95.0-98.0) % FiO2 % Sodium (132-148) mmol/L Potassium (3.6-5.0) mmol/L Chloride (98-107) mmol/L Carbon Dioxide (21-33) mmol/L Anion Gap (10-20) BUN (7-21) mg/dL Creatinine (0.5-1.4) mg/dL Est GFR ( Amer) Est GFR (Non-Af Amer) POC Glucose (mg/dL) 177 H 175 H (65-110) mg/dL Random Glucose (70-110) mg/dL Calcium (8.4-10.5) mg/dL Total Bilirubin (0.2-1.3) mg/dL AST (15-59) U/L ALT (7-56) U/L Alkaline Phosphatase (38-133) U/L Total Protein (5.8-8.3) g/dL Albumin (3.0-4.8) g/dL Globulin gm/dL Albumin/Globulin Ratio (1.1-1.8) Hepatitis A IgM Ab Negative (NEGATIVE) Hep Bs Antigen Negative (NEGATIVE) Hep B Core IgM Ab Negative (NEGATIVE) Hepatitis C Antibody Negative (NEGATIVE) 05/13/16 Range/Units 06:26 WBC (4.5-11.0) 10^3/ul RBC (3.5-6.1) 10^6/uL Hgb (14.0-18.0) gm/dL Hct (42.0-52.0) % MCV (80.0-105.0) fL MCH (25.0-35.0) pg MCHC (31.0-37.0) g/dl RDW (11.5-14.5) % Plt Count (120.0-450.0) 10^3/uL pCO2 (35-45) mm/Hg pO2 (80-100) mm/Hg HCO3 (21-28) mmol/L ABG pH (7.35-7.45) ABG Total CO2 (22-28) mmol.L ABG O2 Saturation (95-98) % ABG O2 Content (15-23) ML/dl ABG Base Excess (-2.0-3.0) mmol/L ABG Hemoglobin (11.7-17.4) g/dL ABG Carboxyhemoglobin (0.5-1.5) % POC ABG HHb (Measured) (0-5) % ABG Methemoglobin (0.0-3.0) % ABG O2 Capacity (16-24) mL/dl Hgb O2 Saturation (95.0-98.0) % FiO2 % Sodium (132-148) mmol/L Potassium (3.6-5.0) mmol/L Chloride (98-107) mmol/L Carbon Dioxide (21-33) mmol/L Anion Gap (10-20) BUN (7-21) mg/dL Creatinine (0.5-1.4) mg/dL Est GFR ( Amer) Est GFR (Non-Af Amer) POC Glucose (mg/dL) 218 H (65-110) mg/dL Random Glucose (70-110) mg/dL Calcium (8.4-10.5) mg/dL Total Bilirubin (0.2-1.3) mg/dL AST (15-59) U/L ALT (7-56) U/L Alkaline Phosphatase (38-133) U/L Total Protein (5.8-8.3) g/dL Albumin (3.0-4.8) g/dL Globulin gm/dL Albumin/Globulin Ratio (1.1-1.8) Hepatitis A IgM Ab (NEGATIVE) Hep Bs Antigen (NEGATIVE) Hep B Core IgM Ab (NEGATIVE) Hepatitis C Antibody (NEGATIVE) Laboratory Results - last 24 hr 05/13/16 05/13/16 05/13/16 06:26 08:30 10:21 WBC RBC Hgb Hct MCV MCH MCHC RDW Plt Count pCO2 pO2 HCO3 ABG pH ABG Total CO2 ABG O2 Saturation ABG O2 Content ABG Base Excess ABG Hemoglobin ABG Carboxyhemoglobin POC ABG HHb (Measured) ABG Methemoglobin ABG O2 Capacity Hgb O2 Saturation FiO2 Sodium Potassium Chloride Carbon Dioxide Anion Gap BUN Creatinine Est GFR ( Amer) Est GFR (Non-Af Amer) POC Glucose (mg/dL) 218 H 175 H Random Glucose Calcium Total Bilirubin AST ALT Alkaline Phosphatase Total Protein Albumin Globulin Albumin/Globulin Ratio Hepatitis A IgM Ab Negative Hep Bs Antigen Negative Hep B Core IgM Ab Negative Hepatitis C Antibody Negative 05/13/16 05/13/16 05/14/16 17:08 21:19 05:15 WBC 10.3 D RBC 3.23 L Hgb 9.3 L Hct 27.8 L MCV 86.1 MCH 28.8 MCHC 33.5 RDW 17.0 H Plt Count 42 L* pCO2 pO2 HCO3 ABG pH ABG Total CO2 ABG O2 Saturation ABG O2 Content ABG Base Excess ABG Hemoglobin ABG Carboxyhemoglobin POC ABG HHb (Measured) ABG Methemoglobin ABG O2 Capacity Hgb O2 Saturation FiO2 Sodium 137 Potassium 4.1 Chloride 103 Carbon Dioxide 19 L Anion Gap 19 BUN 126 H* Creatinine 4.4 H Est GFR ( Amer) 16 Est GFR (Non-Af Amer) 13 POC Glucose (mg/dL) 177 H 197 H Random Glucose 156 H Calcium 7.2 L Total Bilirubin 0.9 AST 30 ALT 29 Alkaline Phosphatase 119 Total Protein 5.8 Albumin 2.4 L Globulin 3.4 Albumin/Globulin Ratio 0.7 L Hepatitis A IgM Ab Hep Bs Antigen Hep B Core IgM Ab Hepatitis C Antibody 05/14/16 05/14/16 05/14/16 06:14 07:16 11:27 WBC RBC Hgb Hct MCV MCH MCHC RDW Plt Count pCO2 28 L pO2 118.0 H HCO3 14.1 L ABG pH 7.31 L ABG Total CO2 15.0 L ABG O2 Saturation 99.3 H ABG O2 Content 12.8 L ABG Base Excess -11.0 L ABG Hemoglobin 9.3 L ABG Carboxyhemoglobin 2.2 H POC ABG HHb (Measured) 0.7 ABG Methemoglobin 1.1 ABG O2 Capacity 12.9 L Hgb O2 Saturation 96.0 FiO2 35.0 Sodium Potassium Chloride Carbon Dioxide Anion Gap BUN Creatinine Est GFR ( Amer) Est GFR (Non-Af Amer) POC Glucose (mg/dL) 170 H 191 H Random Glucose Calcium Total Bilirubin AST ALT Alkaline Phosphatase Total Protein Albumin Globulin Albumin/Globulin Ratio Hepatitis A IgM Ab Hep Bs Antigen Hep B Core IgM Ab Hepatitis C Antibody 05/14/16 16:22 WBC RBC Hgb Hct MCV MCH MCHC RDW Plt Count pCO2 pO2 HCO3 ABG pH ABG Total CO2 ABG O2 Saturation ABG O2 Content ABG Base Excess ABG Hemoglobin ABG Carboxyhemoglobin POC ABG HHb (Measured) ABG Methemoglobin ABG O2 Capacity Hgb O2 Saturation FiO2 Sodium Potassium Chloride Carbon Dioxide Anion Gap BUN Creatinine Est GFR ( Amer) Est GFR (Non-Af Amer) POC Glucose (mg/dL) 250 H Random Glucose Calcium Total Bilirubin AST ALT Alkaline Phosphatase Total Protein Albumin Globulin Albumin/Globulin Ratio Hepatitis A IgM Ab Hep Bs Antigen Hep B Core IgM Ab Hepatitis C Antibody Critical Care Progress Note - Nutrition Nutrition: Nutrition Category Date Time Status Dysphagia/Modified Consistency Diet [DIET] Diets 05/10/16 Dinner Ordered Addendum Addendum: 05/14/16 16:43 patient was seen and examined with Dr. Ivania Hi. Please see Dr. Leal's note
--- NOTE | 2016-05-14 13:13 | CP.PCM.PN ---
Subjective - Date & Time of Evaluation Date of Evaluation: 05/14/16 Time of Evaluation: 10:00 - Subjective Subjective: Lethargic. Able to follow simple command. Objective - Vital Signs/Intake and Output Vital Signs (last 24 hours): Temp Pulse Resp BP Pulse Ox 97.8 F 118 H 13 104/69 94 L 05/14/16 12:00 05/14/16 11:30 05/14/16 11:30 05/14/16 11:30 05/14/16 11:30 Intake and Output: 05/14/16 05/14/16 06:59 18:59 Intake Total 1910 Output Total 20 Balance 1890 - Medications Medications: Current Medications Albuterol/Ipratropium (Duoneb 3 Mg/0.5 Mg (3 Ml) Ud) 3 ml IH [id number] PRN PRN Reason: Shortness Of Breath Last Admin: 05/12/16 16:42 Dose: 3 ml Budesonide (Pulmicort Respules) 0.5 mg IH [id number] REPLACED BY [facility] Last Admin: 05/14/16 08:26 Dose: 0.5 mg Chlordiazepoxide (Librium) 25 mg PO Q8 PRN; Protocol PRN Reason: Agitation Last Admin: 05/06/16 05:15 Dose: 25 mg Heparin Sodium (Porcine) (Heparin) 5,000 units SC Q8 WIL PRN Reason: Protocol Last Admin: 05/14/16 13:00 Dose: 5,000 units Dextrose (Dextrose 5% In Water 1000 Ml) 1,000 mls @ 150 mls/hr IV .Q6H40M REPLACED BY [facility] Last Admin: 05/14/16 08:56 Dose: 150 mls/hr Famotidine (Pepcid 20mg/50ml Premix) 50 mls @ 100 mls/hr IVPB DAILY REPLACED BY [facility] Last Admin: 05/14/16 09:30 Dose: 100 mls/hr Insulin Human Lispro (Humalog Low) 0 units SC ACHS WIL PRN Reason: Protocol Last Admin: 05/14/16 12:58 Dose: 1 units Levalbuterol HCl (Xopenex) 1.25 mg IH TIDRESP REPLACED BY [facility] Last Admin: 05/14/16 08:24 Dose: 1.25 mg Saliva Substitute (Saliva Substitute) 0 ml PO 5XD PRN PRN Reason: DRY MOUTH Vancomycin HCl (Vancocin 25 Mg/Ml (Oral Use)) 125 mg PO QID WIL PRN Reason: Protocol Last Admin: 05/14/16 13:01 Dose: 125 mg - Labs Labs: 05/14/16 05:15 05/14/16 05:15 PT 11.4 Seconds (9.9-11.8) 05/08/16 08:30 INR 1.06 (0.93-1.08) 05/08/16 08:30 APTT 40.4 Seconds (23.7-30.8) H 05/13/16 06:00 - Constitutional Appears: No Acute Distress, Chronically Ill - Eye Exam Eye Exam: Normal appearance, PERRL - ENT Exam ENT Exam: Mucous Membranes Moist - Respiratory Exam Respiratory Exam: Decreased Breath Sounds, Rales, Rhonchi Additional comments: BiPap at night - Cardiovascular Exam Cardiovascular Exam: Tachycardia, +S1, +S2 - GI/Abdominal Exam GI & Abdominal Exam: Distended, Firm, Diminished Bowel Sounds - Exam Additional comments: oliguria - Extremities Exam Additional comments: chronic venous stasis, edema lower extremities - Neurological Exam Additional comments: lethargic oriented to self - Skin Skin Exam: Dry, Pallor Additional comments: ansarca Assessment and Plan - Assessment and Plan (Free Text) Assessment: 65 year old male admitted with sepsis, bacterial peritonitis, ADILENE, respiratory failure s/p intubation, ascites s/p paracentisis. History of pancreatic cancer( last chemotherapy 04/13/16) and advanced bladder cancer. Patient is lethargic,he is unable to process and express thoughts. He can follow simple commands. He is bed bound. His appetite is poor. Abdomen is distended, he denies pain/tenderness on palpation. He has oliguria. I contacted via phone to discuss goals of care. and I met, she is aware that patient's pancreatic cancer is not curable and due to debilitated condition he is neither a candidate for surgery or chemotherapy. knows that patient's bladder cancer in advanced stages. made aware that patient' s kidney functions are declining. Benefits and burdens of CPR, intubation and dialysis discussed. I explained the likelihood of her returning to baseline status were poor and that despite medical interventions his health will continue to decline. states her wants to be treated. I explained that her may not understand the gravity of his condition and overall prognosis. I asked if her would want to consider quality of life rather than quantity, and whether continuing treatment under these circumstances would be worthwhile to him? Comfort care offered. states she is not ready to give up. Dr. Conrad Shahid also spoke with in my presence. He reviewed patient's medical condition. He explained the risks of dialysis relative to her extensive comorbidities. Option for comfort care offered. insistent she wants to try dialysis. Time spent in discussion with regarding goals of care and advance care planning, 40 minutes. Plan: Continue current medical management Will provide palliative counseling and psychosocial support.
--- NOTE | 2016-05-14 15:40 | PN ---
DATE: 05/14/2016 The patient seen and examined at bedside. He is comfortable. He appears to be tired, slightly weak and mildly tachypneic; however, no labored breathing and no respiratory failure apparent on physical exam. PHYSICAL EXAMINATION: VITAL SIGNS: The patient is on nasal cannula, oxygen saturation 99% on 2 liters nasal cannula, respiratory rate 15-25, blood pressure 104/69, heart rate 118. HEAD AND NECK: Atraumatic. LUNGS: Clear to auscultation bilaterally. HEART: Regular rate and rhythm. S1, S2 normal. ABDOMEN: Soft, mildly distended, nontender. NEUROLOGIC: The patient moves all extremities spontaneously. SKIN: Moist. PSYCHIATRIC: Alert and oriented x 3. LABORATORY DATA: WBC 10.3, hemoglobin 9.3, platelet count 42. Sodium 137, potassium 4.1, chloride 103, carbon dioxide 19, BUN 126, creatinine 4.4, up from 3.4. Glucose 156, AST 30, ALT 29. MEDICATIONS: DuoNeb p.r.n., D5 150 mL per hour, heparin 5000 subQ q. 8, Librium p.r.n., Pulmicort, vancomycin. ASSESSMENT AND PLAN: This is a 65-year-old gentleman with 2 synchronous malignancies including pancreatic cancer and urinary bladder cancer, currently in severe sepsis due to spontaneous bacterial peritonitis, urinary tract infection, complicated by ATN/ADILENE/uremia. The patient is on broad-spectrum antibiotics. He, however, has relatively reaccumulated ascites despite removal of 5 liters of ascitic fluid with paracentesis a couple days ago. He also has worsening of his acute kidney injury. Nephrology followup is appreciated in this regard. It appears that taking all above together, nephrology service a bit skeptical that HD would improve his overall outcome. The patient is not a surgical candidate for pancreatic cancer and in his current condition and would be an unlikely candidate for any chemotherapy treatment presently. We will continue to target euvolemia, euglycemia, normothermia and oxygen saturation more than 90% as much as we can. Addendum: Dr. Toribio and RN Reyna Miller spoke with patient next of kin- , who decided to proceed with maximally aggressive supportive care. Nephrology service requested HD catheter for HD. Patient platelet level 42, besides he is likely uremic--platelets transfusion ordered, ddAVP will be given in arcelia-transfusion period, heparin s/c held. Low threshold for intubation. May need to repeat paracenthesis. As patient has SBP and not a comfort care-- indwelling peritoneal catheter is contra-indicated--discussed with GI service. continue abx. respiratory stable so far, protecting airways, on NC and not in respiratory distress ccm time 40 min Guanaco Leal MD cc: [id number] TT: 05/14/2016 15:39:22 Confirmation # [id number] Dictation # [id number] david DELGADO
[2016-05-14] MEDS: Albuterol-Ipratrop 3 mg / 0.5 (3 ml) UD IH PRN (17:11)
[2016-05-15 01:54] LABS: HB E AG Nonreactive (Nonreactive)
[2016-05-15] MEDS ORDERED: DESMOPRESSIN IV ONE (02:39)
[2016-05-15] MEDS ORDERED: SODIUM CHLORIDE 0.9% IV ONE (02:39)
[2016-05-15 05:13] LABS: ARTERIAL BLOOD GAS HCO3 14.2 mmol/L (21-28); ARTERIAL BLOOD GAS O2 CAPACITY 14.2 mL/dl (16-24); ARTERIAL BLOOD GAS PH 7.23 (7.35-7.45); ARTERIAL BLOOD HGB O2 SAT 95.2 % (95.0-98.0); CARBOXYHEMOGLOBIN 2.4 % (0.5-1.5); HHB 1.3 % (0-5); METHEMOGLOBIN 1.2 % (0.0-3.0)
[2016-05-15 06:21] LABS: ARTERIAL BLOOD GAS HCO3 13.6 mmol/L (21-28); ARTERIAL BLOOD GAS O2 CAPACITY 12.2 mL/dl (16-24); ARTERIAL BLOOD GAS O2 CONTENT 12.2 ML/dl (15-23); ARTERIAL BLOOD GAS PH 7.21 (7.35-7.45); ARTERIAL BLOOD HGB O2 SAT 96.9 % (95.0-98.0); CARBOXYHEMOGLOBIN 2.2 % (0.5-1.5); HHB 0 % (0-5); METHEMOGLOBIN 0.9 % (0.0-3.0)
[2016-05-15] MEDS: Budesonide 0.5 mg/2 ml Inhal Susp UD IH SCH ×2 (07:28→20:05)
[2016-05-15] MEDS: Albuterol-Ipratrop 3 mg / 0.5 (3 ml) UD IH PRN (07:28)
[2016-05-15] MEDS: Insulin Lispro (humaLOG) LOW Coverage SC SCH ×4 (07:30→23:00)
--- NOTE | 2016-05-15 07:45 | CP.PCM.PN ---
Subjective - Date & Time of Evaluation Date of Evaluation: 05/15/16 Time of Evaluation: 07:44 - Subjective Subjective: SURGERY NOTE FOR DR. CHEN 65M seen and examined at bedside. Currently lethargic on bipap. Patient responds to tactile stimuli. Objective - Vital Signs/Intake and Output Vital Signs (last 24 hours): Temp Pulse Resp BP Pulse Ox 97.7 F 98 H 23 87/68 L 98 05/15/16 04:00 05/15/16 03:00 05/15/16 03:00 05/15/16 03:00 05/15/16 03:00 - Medications Medications: Current Medications Albuterol/Ipratropium (Duoneb 3 Mg/0.5 Mg (3 Ml) Ud) 3 ml IH [id number] PRN PRN Reason: Shortness Of Breath Last Admin: 05/15/16 07:28 Dose: 3 ml Budesonide (Pulmicort Respules) 0.5 mg IH [id number] WIL Last Admin: 05/15/16 07:28 Dose: 0.5 mg Chlordiazepoxide (Librium) 25 mg PO Q8 PRN; Protocol PRN Reason: Agitation Last Admin: 05/06/16 05:15 Dose: 25 mg Heparin Sodium (Porcine) (Heparin) 5,000 units SC Q8 WIL PRN Reason: Protocol Last Admin: 05/14/16 13:00 Dose: 5,000 units Dextrose (Dextrose 5% In Water 1000 Ml) 1,000 mls @ 150 mls/hr IV .Q6H40M [facility] Last Admin: 05/15/16 00:56 Dose: 150 mls/hr Famotidine (Pepcid 20mg/50ml Premix) 50 mls @ 100 mls/hr IVPB DAILY [facility] Last Admin: 05/14/16 09:30 Dose: 100 mls/hr Propofol (Diprivan) 100 mls @ 3.55 mls/hr IV .Q24H PRN; Protocol; 5 MCG/KG/MIN PRN Reason: TITRATE PER MD ORDER Last Admin: 05/15/16 06:58 Dose: 7.101 mls/hr Insulin Human Lispro (Humalog Low) 0 units SC ACHS WIL PRN Reason: Protocol Last Admin: 05/14/16 22:50 Dose: Not Given Levalbuterol HCl (Xopenex) 1.25 mg IH TIDRESP [facility] Last Admin: 05/14/16 21:26 Dose: 1.25 mg Saliva Substitute (Saliva Substitute) 0 ml PO 5XD PRN PRN Reason: DRY MOUTH Vancomycin HCl (Vancocin 25 Mg/Ml (Oral Use)) 125 mg PO QID WIL PRN Reason: Protocol Last Admin: 05/14/16 23:00 Dose: 125 mg - Labs Labs: 05/14/16 05:15 05/14/16 05:15 PT 11.4 Seconds (9.9-11.8) 05/08/16 08:30 INR 1.06 (0.93-1.08) 05/08/16 08:30 APTT 40.4 Seconds (23.7-30.8) H 05/13/16 06:00 - Respiratory Exam Respiratory Exam: Clear to Ausculation Bilateral, NORMAL BREATHING PATTERN - Cardiovascular Exam Cardiovascular Exam: REGULAR RHYTHM, +S1, +S2 - GI/Abdominal Exam GI & Abdominal Exam: Soft. absent: Distended, Firm, Guarding, Rigid, Tenderness , Rebound Assessment and Plan - Assessment and Plan (Free Text) Assessment: 65M presents with bacteremia (resolved) possibly to be 2/2 portacath - OR on hold currently - confirm port removal w/ medical team - cont current medical management Further recs discuss with Dr. Erik Walsh, PGY1
[2016-05-15 08:01] LABS: MEAN CORPUSCULAR HGB CONC 33.8 g/dl (31.0-37.0); PLATELET COUNT 45 10^3/uL (120.0-450.0); RED CELL DISTRIBUTION WIDTH 16.6 % (11.5-14.5); WHITE BLOOD COUNT 11.6 10^3/ul (4.5-11.0)
--- NOTE | 2016-05-15 08:04 | RAD ---
HISTORY: ETT placement COMPARISON: May 15, 2016. 05:16. FINDINGS: LUNGS: No active pulmonary disease. PLEURA: No significant pleural effusion identified, no pneumothorax apparent. CARDIOVASCULAR: No radiographic findings to suggest acute or significant cardiovascular disease. Satisfactory position of venous access catheter. OSSEOUS STRUCTURES: No significant abnormalities. VISUALIZED UPPER ABDOMEN: Normal. OTHER FINDINGS: Satisfactory position of endotracheal tube. IMPRESSION: Satisfactory position of support apparatus including right IJ catheter and endotracheal tube recently placed.
--- NOTE | 2016-05-15 08:09 | CP.PCM.PN ---
<Fannie Messer - Last Filed: 05/15/16 08:06> Subjective - Date & Time of Evaluation Date of Evaluation: 05/15/16 Time of Evaluation: 08:06 - Subjective Subjective: Gastroenterology Fellow/PGY4 Progress Note Patient became hypoxic early this morning and reintubated due to oxygen saturations in the 60s. Bowel movement overnight. A 12-point review of systems unable to be completed due to being intubated and on sedation. Objective - Vital Signs/Intake and Output Vital Signs (last 24 hours): Temp Pulse Resp BP Pulse Ox 97.7 F 98 H 23 87/68 L 98 05/15/16 04:00 05/15/16 03:00 05/15/16 03:00 05/15/16 03:00 05/15/16 03:00 - Medications Medications: Current Medications Albuterol/Ipratropium (Duoneb 3 Mg/0.5 Mg (3 Ml) Ud) 3 ml IH [id number] PRN PRN Reason: Shortness Of Breath Last Admin: 05/15/16 07:28 Dose: 3 ml Budesonide (Pulmicort Respules) 0.5 mg IH [id number] WIL Last Admin: 05/15/16 07:28 Dose: 0.5 mg Chlordiazepoxide (Librium) 25 mg PO Q8 PRN; Protocol PRN Reason: Agitation Last Admin: 05/06/16 05:15 Dose: 25 mg Heparin Sodium (Porcine) (Heparin) 5,000 units SC Q8 WIL PRN Reason: Protocol Last Admin: 05/14/16 13:00 Dose: 5,000 units Dextrose (Dextrose 5% In Water 1000 Ml) 1,000 mls @ 150 mls/hr IV .Q6H40M [facility] Last Admin: 05/15/16 00:56 Dose: 150 mls/hr Famotidine (Pepcid 20mg/50ml Premix) 50 mls @ 100 mls/hr IVPB DAILY [facility] Last Admin: 05/14/16 09:30 Dose: 100 mls/hr Propofol (Diprivan) 100 mls @ 3.55 mls/hr IV .Q24H PRN; Protocol; 5 MCG/KG/MIN PRN Reason: TITRATE PER MD ORDER Last Admin: 05/15/16 06:58 Dose: 7.101 mls/hr Insulin Human Lispro (Humalog Low) 0 units SC ACHS WIL PRN Reason: Protocol Last Admin: 05/14/16 22:50 Dose: Not Given Levalbuterol HCl (Xopenex) 1.25 mg IH TIDRESP [facility] Last Admin: 05/14/16 21:26 Dose: 1.25 mg Saliva Substitute (Saliva Substitute) 0 ml PO 5XD PRN PRN Reason: DRY MOUTH Vancomycin HCl (Vancocin 25 Mg/Ml (Oral Use)) 125 mg PO QID WIL PRN Reason: Protocol Last Admin: 05/14/16 23:00 Dose: 125 mg - Labs Labs: 05/14/16 05:15 05/14/16 05:15 PT 11.4 Seconds (9.9-11.8) 05/08/16 08:30 INR 1.06 (0.93-1.08) 05/08/16 08:30 APTT 40.4 Seconds (23.7-30.8) H 05/13/16 06:00 - Constitutional Appears: Toxic, Chronically Ill - Head Exam Head Exam: ATRAUMATIC, NORMOCEPHALIC - Eye Exam Eye Exam: PERRL. absent: EOMI Pupil Exam: PERRL. absent: Miosis, Mydriatic - ENT Exam ENT Exam: Mucous Membranes Moist, Normal Oropharynx - Neck Exam Neck Exam: Normal Inspection - Respiratory Exam Respiratory Exam: Clear to Ausculation Bilateral. absent: Rales, Rhonchi, Wheezes - Cardiovascular Exam Cardiovascular Exam: RRR, +S1, +S2. absent: Gallop, Rubs - GI/Abdominal Exam GI & Abdominal Exam: Distended, Firm, Normal Bowel Sounds, Organomegaly. absent : Guarding, Tenderness, Rebound Additional comments: hepatosplenomegaly - Extremities Exam Extremities Exam: absent: Full ROM Additional comments: 3+ B/L LE pitting edema - Neurological Exam Additional comments: intubated and sedated, PERRL - Skin Skin Exam: Dry, Intact, Normal Color, Warm Assessment and Plan - Assessment and Plan (Free Text) Assessment: 65 year old male with medical history of Pancreatic cancer, Bladder cancer, Diabetes, Hypertension with active treatment of pyelonephritis, worsening kidney function, and sepsis secondary to C diff and VRE UTI. Patient developed abdominal distension s/p diagnostic and large volume paracentesis. Pancreatic cancer and bladder cancer SBP (spontaneous bacterial peritonitis) Recurrent ascites s/p large volume paracentesis (05/09) Worsening renal insufficiency Worsening thrombocytopenia VRE UTI Klebsiella Bacteremia C diff diarrhea, resolved Plan: >SAAG >1.1, TP<3, cytology- negative for malignant cells >Hepatitis panel negative >nephrology managing- follow recommendations >diuresis held >continue broad spectrum antibiotics, ID managing: Vancomycin PO day 15, Meropenem (05/01-05/14) >family considering dialysis, consideration of repeat paracentesis >decline in critical condition with poor prognosis, will continue to follow clinical course <Law Zavala - Last Filed: 05/15/16 10:26> Objective - Vital Signs/Intake and Output Vital Signs (last 24 hours): Temp Pulse Resp BP Pulse Ox 97.7 F 96 H 22 80/36 L 99 05/15/16 04:00 05/15/16 08:00 05/15/16 05:00 05/15/16 08:00 05/15/16 08:00 - Medications Medications: Current Medications Albuterol/Ipratropium (Duoneb 3 Mg/0.5 Mg (3 Ml) Ud) 3 ml IH [id number] PRN PRN Reason: Shortness Of Breath Last Admin: 05/15/16 07:28 Dose: 3 ml Budesonide (Pulmicort Respules) 0.5 mg IH [id number] WIL Last Admin: 05/15/16 07:28 Dose: 0.5 mg Chlordiazepoxide (Librium) 25 mg PO Q8 PRN; Protocol PRN Reason: Agitation Last Admin: 05/06/16 05:15 Dose: 25 mg Heparin Sodium (Porcine) (Heparin) 5,000 units SC Q8 WIL PRN Reason: Protocol Last Admin: 05/14/16 13:00 Dose: 5,000 units Famotidine (Pepcid 20mg/50ml Premix) 50 mls @ 100 mls/hr IVPB DAILY [facility] Last Admin: 05/15/16 09:41 Dose: 100 mls/hr Propofol (Diprivan) 100 mls @ 3.55 mls/hr IV .Q24H PRN; Protocol; 5 MCG/KG/MIN PRN Reason: TITRATE PER MD ORDER Last Admin: 05/15/16 06:58 Dose: 7.101 mls/hr Norepinephrine Bitartrate 4 mg (/ Sodium Chloride) 254 mls @ 15.24 mls/hr IV .[id number] PRN; Protocol; 4 MCG/MIN PRN Reason: TITRATE PER MD ORDER Insulin Human Lispro (Humalog Low) 0 units SC ACHS WIL PRN Reason: Protocol Last Admin: 05/15/16 07:30 Dose: Not Given Levalbuterol HCl (Xopenex) 1.25 mg IH TIDRESP [facility] Last Admin: 05/14/16 21:26 Dose: 1.25 mg Saliva Substitute (Saliva Substitute) 0 ml PO 5XD PRN PRN Reason: DRY MOUTH Vancomycin HCl (Vancocin 25 Mg/Ml (Oral Use)) 125 mg PO QID WIL PRN Reason: Protocol Last Admin: 05/14/16 23:00 Dose: 125 mg - Labs Labs: 05/15/16 07:57 05/15/16 07:57 PT 11.4 Seconds (9.9-11.8) 05/08/16 08:30 INR 1.06 (0.93-1.08) 05/08/16 08:30 APTT 40.4 Seconds (23.7-30.8) H 05/13/16 06:00 Attending/Attestation - Attestation I have personally seen and examined this patient.: Yes I have fully participated in the care of the patient.: Yes I have reviewed all pertinent clinical information, including history, physical exam and plan: Yes Notes (Text): 05/15/16 10:25 65 year old male with h/o pancreatic cancer, bladder cancer, HTN, DM who was originally admitted with ADILENE, pyelonephritis, sepsis, C. diff. Now with recurrent respiratory and renal failure. 1. Ascites 2. SBP 3. Pancreatic cancer Plan: -High SAAG -cytology negative -continue antibiotics per ICU -supportive care per ICU -respiratory status worse today requiring bipap -renal failure worsening -overall prognosis is poor -will sign off at this time
--- NOTE | 2016-05-15 08:12 | RAD ---
HISTORY: Follow-up. Technique: Single view portable semi erect @ 05:16. COMPARISON: 05/12/2016. FINDINGS: LUNGS: No active pulmonary disease. PLEURA: No significant pleural effusion identified, no pneumothorax apparent. CARDIOVASCULAR: Normal. OSSEOUS STRUCTURES: No significant abnormalities. VISUALIZED UPPER ABDOMEN: Normal. OTHER FINDINGS: Stable position of venous access catheter. IMPRESSION: No significant interval change compared to the prior examination(s).
[2016-05-15 08:14] LABS: ALB/GLOB RATIO 0.6 (1.1-1.8); BILIRUBIN,TOTAL 0.6 mg/dL (0.2-1.3); POTASSIUM 4.5 mmol/L (3.6-5.0); TOTAL PROTEIN 5.6 g/dL (5.8-8.3)
--- NOTE | 2016-05-15 08:19 | PN ---
DATE: 05/14/2016 SUBJECTIVE: The patient was seen in the intensive care unit. When I saw him, he was not intubated. He was lethargic, but arousable, although he certainly appears to be encephalopathic. SCDs were in place, as was Beard catheter draining to water and he was on D5W infusion. The patient was noted to be psychiatric. OBJECTIVE: VITAL SIGNS: Blood pressure is 98/52 with minimum blood pressure 74/44 in the last 24-hour period an d a maximum of 139/113 in the last 24-hour period. Heart rate is 110, but has ranged from the 90s to approximately 118 beats per minute in the last 24-hour period, axillary temperature is 97.5, the pat ient is T-min of 96.9, T-max of 97.8 in the last 24-hour period. Respiratory rate is 21, it has rang ed from 15-45 breaths per minute in the last 24-hour period. Oxygen saturation is 100%, but has rang ed from 73-100% with the patient apparently having been on BiPAP. At present, he is on FIO2 of 35%. I's and O's in the last 24-hour period are 4400/40. The remainder of the exam are as follows. HEENT: The patient was normocephalic and atraumatic. He was anasarcic. Conjunctivae were pale, but they were anicteric. LUNGS: Li had distant breath sounds when auscultated anteriorly without any wheezing or rhonchi. CARDIAC: Regular rate and rhythm without any rubs or gallops. ABDOMEN: Distended and firm, but nontender and there was no rebound, guarding, or rigidity. I canno t appreciate any hepatosplenomegaly. EXTREMITIES: Notable for anasarca. NEUROLOGIC: He was lethargic, but arousable. GENITOURINARY: Notable for the presence of a Beard catheter with scant urine. There was no suprapub ic tenderness. SKIN: Notable for a scar in the upper abdomen. Corresponding to prior attempt at Whipple procedure. LABORATORY STUDIES: As follows: White count is 10.3, H and H 9.3/27.8 with a platelet count of 42,0 00. Sodium is 137, potassium is 4.1, chloride is 103, bicarbonate 19, BUN/creatinine is 126/4.4 with a glucose of 156. Calcium 7.2, but after corrected it was 8.4. ABG had a pH of 7.31, pCO2 of 28, p O2 of 118, oxygen saturation 99% on FIO2 of 35%. Most recent urinalysis, had a pH of 7.0 and has a s pecific gravity of 1.020. Urine has grown out vancomycin-resistant enterococcus species, but blood c ultures after 05/01 have been negative. The patient is status post VQ scan on 05/12, which was low p robability for pulmonary embolism. 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 Hospitalization has been complicated by Klebsiella pneumoniae bacteremia and respiratory comprom ise. 1. The patient's renal function continues to deteriorate, he has increased encephalopathy, worrisome that we may have uremic encephalopathy. 2. I had a lengthy discussion with the patient's . As to the overall, patient's poor prognosis, given that he his 2 very aggressive malignancies, with the pancreatic cancer not responding to thera py as anticipated according to the patient's . Nonetheless, she is adamant that she wants "every thing done" including DNR, chest compressions and dialysis, given his overall poor prognosis, I did r equest second nephrology opinion and they are supportive of acute dialysis. 3. That being the case, the patient will require dialysis catheter since he is thrombocytopenic prio r to dialysis catheter, he will require platelets, however, the blood bank is having difficulties pro curing platelets in addition to a platelet he should receive DDAVP at a dose of 0.3 mcg per kilogram IV prior to catheter procedure to decrease bleeding diathesis from uremic platelets. 4. We will continue to make ourselves available to the patient's to discuss possible end of lif e care and his future. 5. The patient is also noted to have spontaneous bacterial peritonitis, he is also noted to have van comycin-resistant enterococcus species in the urine. Infectious disease followup is appreciated and in the meantime it has been recommended that the patient continue meropenem as well as oral vancomyci n. 6. Since patient is thrombocytopenic, for deep vein thrombosis prophylaxis, continue sequential comp ression devices. 7. The patient's hypernatremia has resolved and at this point, I would discontinue his D5W. 8. Continue to maintain glucose of 140-180. 9. Continue BiPAP as needed. 10. The patient is diet is now dysphagia. Modified consistency and we will see how he tolerates. 11. The above was discussed with the patient's at length including his overall poor prognosis, after dialysis catheter is in place the patient will have hemodialysis for the purpose of clearance t o see whether or not his mentation improves to the degree that it maybe because of uremic encephalopa thy. We will also attempt volume removal with dialysis as well. Review of chart with the . Review of systems, past medical history, social history and family hi story were all reviewed and there were no new changes. More than 35 minutes were spent in the care of this ICU patient today. Barry Shahid MD cc: [id number] TT: 05/15/2016 08:18:25 Confirmation # [id number] Dictation # [id number] tn
[2016-05-15 08:41] LABS: CALCIUM 5.9 mg/dL (8.4-10.5)
--- NOTE | 2016-05-15 09:22 | PN ---
DATE: 05/15/2016 He was intubated this morning. He was having respiratory difficulties and then had to intubate him a gain. He is also in acute renal failure and that is getting worse, and now his lungs are not improvi ng. I think he is actively dying or close to it. I had a discussion with the who wants everyth ing done. She is also asking for peritoneal dialysis, which would not be a good choice for him due t o all his ascites and in his situation it could be a bigger chance of infection. If he is going to g o for dialysis, he will need hemodialysis. The bottom line is he is failing and I do think he is act ively dying from all his cancer and his respiratory and renal issues. PHYSICAL EXAMINATION: VITAL SIGNS: Temperature 97.7, pulse98, respiratory rate 22, O2 sat 98% on ventilator. HEENT: His head is atraumatic, normocephalic. HEART: Regular rate. Tachycardiac. LUNGS: Decreased breath sounds on the ventilator, clear. ABDOMEN: Soft, obese, tense with ascites. EXTREMITIES: Trace edema. MEDICATIONS: He is on dextrose Diprivan, DuoNeb, heparin, insulin, Librium, Pepcid, Pulmicort, saliv a, vancomycin, Xopenex. LABORATORY DATA: His labs are getting worse. He has 11.6 white count, 8.1 hemoglobin. The white co unt has gone up, the hemoglobin is going down. Hematocrit 24, and his platelets are 45. He has a 12 9 sodium, 4.5 potassium. His BUN is 134, creatinine 5.6 which is the worst is has been, and his GFR is down to 10. His blood sugar is 154, calcium is down to 5.9, total bili is 0.6, AST is 33, ALT 32, alkaline phosphatase 153, total protein is 5.6. He is having multiple issues. He is being seen by multiple physicians. He is being seen by GI, renal, the window draper, infectious disease, pulmonary, and cardiology. Witho ut a doubt he is in trouble. Also urology has seen him, he has severe sepsis with acute renal hypoxi c respiratory failure, intubated. He has bacteremia, cystitis, pyelonephritis, abdominal compartment syndrome with ascites, status post paracentesis, history of Clostridium difficile diarrhea improving . He has pancreatic cancer, I believe bladder cancer, status post chemo and radiation, hypertension, diabetes, and he is morbidly obese. I do not think the understands the gravity and the severit y of his illness and I actually think at this time, his prognosis is grave. I think he is actively d donovan, but she wants everything done, so we will do that. We will check his labs tomorrow. Melquiades Dorsey DO cc: [id number] TT: 05/15/2016 09:03:13 Confirmation # [id number] Dictation # [id number] fredo
[2016-05-15] MEDS: Famotidine 20mg/50ml 50 ML IVPB SCH (09:41)
[2016-05-15] MEDS: Vancomycin 25 MG/ML PO SCH ×4 (10:00→21:22)
--- NOTE | 2016-05-15 11:06 | CP.CCUPN ---
<[place] Hi - Last Filed: 05/15/16 11:03> CCU Subjective - Physician Review Subjective (Free Text): Pt s&e. Pt was reintubated overnight when he desaturated to 60s%. Pt is sedated and unarouasble. CCU Objective - Vital Signs / Intake & Output Vital Signs (Last 4 hours): Vital Signs Pulse BP Pulse Ox 05/15/16 08:00 96 H 80/36 L 99 05/15/16 07:37 96 H 86/34 L 99 05/15/16 07:30 98 H 83/42 L 99 05/15/16 07:20 96 H 85/41 L 99 Intake and Output (Last 8hrs): Intake & Output 05/14/16 05/15/16 05/15/16 22:59 06:59 14:59 Intake Total 2520 Output Total 20 Balance 2500 Intake: IV 1800 Right Subclavian 1800 Oral 720 Output: Urine 20 Urethral (Beard) 20 Oral Regurgitation 0 Other: Voiding Method Indwelling Catheter # Bowel Movements 1 - Physical Exam Head: Positive for: Atraumatic, Normocephalic Conjunctiva: Positive for: Normal Ears: Positive for: Normal, NORMAL TM, Normal Canal. Negative for: Erythema Mouth: Positive for: Dry Neck: Positive for: Normal Range of Motion Respiratory/Chest: Positive for: Respiratory Distress, Decreased Breath Sounds, Other (Intubated. 60% fio2 ). Negative for: Accessory Muscle Use, Rales, Rhonchi Cardiovascular: Positive for: Normal S1, S2, Tachycardic Abdomen: Positive for: Distention, Normal Bowel Sounds, Other (Fluids wave ). Negative for: Tenderness, Peritoneal Signs, Rebound, Guarding, Mass/ Organomegaly Genitourinary Male: Positive for: Other (Beard in place.) Back: Positive for: Normal Inspection Upper Extremity: Negative for: Cyanosis, Edema Lower Extremity: Positive for: Edema Skin: Positive for: Warm, Dry, Pale, Other (Chronic venous stasis dermatitis changes to b/l lower extremities). Negative for: Rashes - Medications Active Medications: Active Medications Generic Name Dose Route Start Last Admin Trade Name Freq PRN Reason Stop Dose Admin Albuterol/Ipratropium 3 ml 05/08/16 09:41 05/15/16 07:28 Duoneb 3 Mg/0.5 Mg (3 Ml) Ud IH 3 ml [id number] PRN Administration Shortness Of Breath Budesonide 0.5 mg 05/07/16 20:00 05/15/16 07:28 Pulmicort Respules IH 0.5 mg [id number] WIL Administration Chlordiazepoxide 25 mg 04/29/16 11:52 05/06/16 05:15 Librium PO 25 mg Q8 PRN Administration Agitation Protocol Heparin Sodium (Porcine) 5,000 units 05/12/16 22:30 05/14/16 13:00 Heparin SC 5,000 units Q8 WIL Administration Protocol Famotidine 50 mls @ 100 mls/hr 05/12/16 10:00 05/15/16 09:41 Pepcid 20mg/50ml Premix IVPB 100 mls/hr DAILY WIL Administration Propofol 100 mls @ 3.55 mls/hr 05/15/16 05:58 05/15/16 06:58 Diprivan IV 7.101 mls/hr .Q24H PRN Administration TITRATE PER MD ORDER Protocol 5 MCG/KG/MIN Norepinephrine Bitartrate 4 mg 254 mls @ 15.24 mls/hr 05/15/16 08:59 / Sodium Chloride IV .[id number] PRN TITRATE PER MD ORDER Protocol 4 MCG/MIN Insulin Human Lispro 0 units 04/29/16 11:30 05/15/16 07:30 Humalog Low SC Not Given ACHS [facility] Protocol Levalbuterol HCl 1.25 mg 05/08/16 08:00 05/14/16 21:26 Xopenex IH 1.25 mg TIDRESP WIL Administration Lorazepam 2 mg 05/15/16 10:54 Ativan IVP Q6H PRN Anxiety Protocol Saliva Substitute 0 ml 04/30/16 14:00 Saliva Substitute PO 5XD PRN DRY MOUTH Vancomycin HCl 125 mg 05/01/16 10:00 05/14/16 23:00 Vancocin 25 Mg/Ml (Oral Use) PO 125 mg QID WIL Administration Protocol - Patient Studies Lab Studies: Microbiology Studies 05/09/16 10:18 Blood Culture - Final Blood-Thru Central Line NO GROWTH AFTER 5 DAYS Gram Stain - Final TEST NOT PERFORMED 05/09/16 10:18 Blood Culture - Final Blood-Thru Central Line NO GROWTH AFTER 5 DAYS Gram Stain - Final TEST NOT PERFORMED Lab Studies 05/15/16 05/15/16 05/15/16 Range/Units 07:57 07:34 06:00 WBC 11.6 H (4.5-11.0) 10^3/ul RBC 2.79 L (3.5-6.1) 10^6/uL Hgb 8.1 L (14.0-18.0) gm/dL Hct 24.0 L (42.0-52.0) % MCV 86.0 (80.0-105.0) fL MCH 29.0 (25.0-35.0) pg MCHC 33.8 (31.0-37.0) g/dl RDW 16.6 H (11.5-14.5) % Plt Count 45 L* (120.0-450.0) 10^3/uL pCO2 34 L (35-45) mm/Hg pO2 281.0 H (80-100) mm/Hg HCO3 13.6 L (21-28) mmol/L ABG pH 7.21 L (7.35-7.45) ABG Total CO2 14.6 L (22-28) mmol.L ABG O2 Saturation 100.0 H (95-98) % ABG O2 Content 12.2 L (15-23) ML/dl ABG Base Excess -13.2 L (-2.0-3.0) mmol/L ABG Hemoglobin 8.4 L (11.7-17.4) g/dL ABG Carboxyhemoglobin 2.2 H (0.5-1.5) % POC ABG HHb (Measured) 0 (0-5) % ABG Methemoglobin 0.9 (0.0-3.0) % ABG O2 Capacity 12.2 L (16-24) mL/dl Hgb O2 Saturation 96.9 (95.0-98.0) % FiO2 100.0 % Sodium 129 L (132-148) mmol/L Potassium 4.5 (3.6-5.0) mmol/L Chloride 99 (98-107) mmol/L Carbon Dioxide 18 L (21-33) mmol/L Anion Gap 17 (10-20) BUN 134 H* (7-21) mg/dL Creatinine 5.6 H (0.5-1.4) mg/dL Est GFR ( Amer) 12 Est GFR (Non-Af Amer) 10 POC Glucose (mg/dL) 192 H (65-110) mg/dL Random Glucose 154 H (70-110) mg/dL Calcium 5.9 L* (8.4-10.5) mg/dL Total Bilirubin 0.6 (0.2-1.3) mg/dL AST 33 (15-59) U/L ALT 32 (7-56) U/L Alkaline Phosphatase 153 H (38-133) U/L Total Protein 5.6 L (5.8-8.3) g/dL Albumin 2.2 L (3.0-4.8) g/dL Globulin 3.5 gm/dL Albumin/Globulin Ratio 0.6 L (1.1-1.8) Peritoneal Tot Protein (()) g/dL Hepatitis Be Antigen (Nonreactive) Blood Type Antibody Screen BBK History Checked 05/15/16 05/14/16 05/14/16 Range/Units 05:00 22:02 16:22 WBC (4.5-11.0) 10^3/ul RBC (3.5-6.1) 10^6/uL Hgb (14.0-18.0) gm/dL Hct (42.0-52.0) % MCV (80.0-105.0) fL MCH (25.0-35.0) pg MCHC (31.0-37.0) g/dl RDW (11.5-14.5) % Plt Count (120.0-450.0) 10^3/uL pCO2 34 L (35-45) mm/Hg pO2 105.0 H (80-100) mm/Hg HCO3 14.2 L (21-28) mmol/L ABG pH 7.23 L (7.35-7.45) ABG Total CO2 15.2 L (22-28) mmol.L ABG O2 Saturation 98.7 H (95-98) % ABG O2 Content 14.0 L (15-23) ML/dl ABG Base Excess -12.3 L (-2.0-3.0) mmol/L ABG Hemoglobin 10.3 L (11.7-17.4) g/dL ABG Carboxyhemoglobin 2.4 H (0.5-1.5) % POC ABG HHb (Measured) 1.3 (0-5) % ABG Methemoglobin 1.2 (0.0-3.0) % ABG O2 Capacity 14.2 L (16-24) mL/dl Hgb O2 Saturation 95.2 (95.0-98.0) % FiO2 35.0 % Sodium (132-148) mmol/L Potassium (3.6-5.0) mmol/L Chloride (98-107) mmol/L Carbon Dioxide (21-33) mmol/L Anion Gap (10-20) BUN (7-21) mg/dL Creatinine (0.5-1.4) mg/dL Est GFR ( Amer) Est GFR (Non-Af Amer) POC Glucose (mg/dL) 182 H 250 H (65-110) mg/dL Random Glucose (70-110) mg/dL Calcium (8.4-10.5) mg/dL Total Bilirubin (0.2-1.3) mg/dL AST (15-59) U/L ALT (7-56) U/L Alkaline Phosphatase (38-133) U/L Total Protein (5.8-8.3) g/dL Albumin (3.0-4.8) g/dL Globulin gm/dL Albumin/Globulin Ratio (1.1-1.8) Peritoneal Tot Protein (()) g/dL Hepatitis Be Antigen (Nonreactive) Blood Type Antibody Screen BBK History Checked 05/14/16 05/14/16 05/14/16 Range/Units 16:20 11:27 07:16 WBC (4.5-11.0) 10^3/ul RBC (3.5-6.1) 10^6/uL Hgb (14.0-18.0) gm/dL Hct (42.0-52.0) % MCV (80.0-105.0) fL MCH (25.0-35.0) pg MCHC (31.0-37.0) g/dl RDW (11.5-14.5) % Plt Count (120.0-450.0) 10^3/uL pCO2 (35-45) mm/Hg pO2 (80-100) mm/Hg HCO3 (21-28) mmol/L ABG pH (7.35-7.45) ABG Total CO2 (22-28) mmol.L ABG O2 Saturation (95-98) % ABG O2 Content (15-23) ML/dl ABG Base Excess (-2.0-3.0) mmol/L ABG Hemoglobin (11.7-17.4) g/dL ABG Carboxyhemoglobin (0.5-1.5) % POC ABG HHb (Measured) (0-5) % ABG Methemoglobin (0.0-3.0) % ABG O2 Capacity (16-24) mL/dl Hgb O2 Saturation (95.0-98.0) % FiO2 % Sodium (132-148) mmol/L Potassium (3.6-5.0) mmol/L Chloride (98-107) mmol/L Carbon Dioxide (21-33) mmol/L Anion Gap (10-20) BUN (7-21) mg/dL Creatinine (0.5-1.4) mg/dL Est GFR ( Amer) Est GFR (Non-Af Amer) POC Glucose (mg/dL) 191 H 170 H (65-110) mg/dL Random Glucose (70-110) mg/dL Calcium (8.4-10.5) mg/dL Total Bilirubin (0.2-1.3) mg/dL AST (15-59) U/L ALT (7-56) U/L Alkaline Phosphatase (38-133) U/L Total Protein (5.8-8.3) g/dL Albumin (3.0-4.8) g/dL Globulin gm/dL Albumin/Globulin Ratio (1.1-1.8) Peritoneal Tot Protein (()) g/dL Hepatitis Be Antigen (Nonreactive) Blood Type A POSITIVE Antibody Screen Negative BBK History Checked Patient has bt 05/13/16 05/09/16 Range/Units 09:55 14:15 WBC (4.5-11.0) 10^3/ul RBC (3.5-6.1) 10^6/uL Hgb (14.0-18.0) gm/dL Hct (42.0-52.0) % MCV (80.0-105.0) fL MCH (25.0-35.0) pg MCHC (31.0-37.0) g/dl RDW (11.5-14.5) % Plt Count (120.0-450.0) 10^3/uL pCO2 (35-45) mm/Hg pO2 (80-100) mm/Hg HCO3 (21-28) mmol/L ABG pH (7.35-7.45) ABG Total CO2 (22-28) mmol.L ABG O2 Saturation (95-98) % ABG O2 Content (15-23) ML/dl ABG Base Excess (-2.0-3.0) mmol/L ABG Hemoglobin (11.7-17.4) g/dL ABG Carboxyhemoglobin (0.5-1.5) % POC ABG HHb (Measured) (0-5) % ABG Methemoglobin (0.0-3.0) % ABG O2 Capacity (16-24) mL/dl Hgb O2 Saturation (95.0-98.0) % FiO2 % Sodium (132-148) mmol/L Potassium (3.6-5.0) mmol/L Chloride (98-107) mmol/L Carbon Dioxide (21-33) mmol/L Anion Gap (10-20) BUN (7-21) mg/dL Creatinine (0.5-1.4) mg/dL Est GFR ( Amer) Est GFR (Non-Af Amer) POC Glucose (mg/dL) (65-110) mg/dL Random Glucose (70-110) mg/dL Calcium (8.4-10.5) mg/dL Total Bilirubin (0.2-1.3) mg/dL AST (15-59) U/L ALT (7-56) U/L Alkaline Phosphatase (38-133) U/L Total Protein (5.8-8.3) g/dL Albumin (3.0-4.8) g/dL Globulin gm/dL Albumin/Globulin Ratio (1.1-1.8) Peritoneal Tot Protein <3.0 (()) g/dL Hepatitis Be Antigen Nonreactive (Nonreactive) Blood Type Antibody Screen BBK History Checked Laboratory Results - last 24 hr 05/09/16 05/13/16 05/14/16 14:15 09:55 07:16 WBC RBC Hgb Hct MCV MCH MCHC RDW Plt Count pCO2 pO2 HCO3 ABG pH ABG Total CO2 ABG O2 Saturation ABG O2 Content ABG Base Excess ABG Hemoglobin ABG Carboxyhemoglobin POC ABG HHb (Measured) ABG Methemoglobin ABG O2 Capacity Hgb O2 Saturation FiO2 Sodium Potassium Chloride Carbon Dioxide Anion Gap BUN Creatinine Est GFR ( Amer) Est GFR (Non-Af Amer) POC Glucose (mg/dL) 170 H Random Glucose Calcium Total Bilirubin AST ALT Alkaline Phosphatase Total Protein Albumin Globulin Albumin/Globulin Ratio Peritoneal Tot Protein <3.0 Hepatitis Be Antigen Nonreactive Blood Type Antibody Screen BBK History Checked 05/14/16 05/14/16 05/14/16 11:27 16:20 16:22 WBC RBC Hgb Hct MCV MCH MCHC RDW Plt Count pCO2 pO2 HCO3 ABG pH ABG Total CO2 ABG O2 Saturation ABG O2 Content ABG Base Excess ABG Hemoglobin ABG Carboxyhemoglobin POC ABG HHb (Measured) ABG Methemoglobin ABG O2 Capacity Hgb O2 Saturation FiO2 Sodium Potassium Chloride Carbon Dioxide Anion Gap BUN Creatinine Est GFR ( Amer) Est GFR (Non-Af Amer) POC Glucose (mg/dL) 191 H 250 H Random Glucose Calcium Total Bilirubin AST ALT Alkaline Phosphatase Total Protein Albumin Globulin Albumin/Globulin Ratio Peritoneal Tot Protein Hepatitis Be Antigen Blood Type A POSITIVE Antibody Screen Negative BBK History Checked Patient has bt 05/14/16 05/15/16 05/15/16 22:02 05:00 06:00 WBC RBC Hgb Hct MCV MCH MCHC RDW Plt Count pCO2 34 L 34 L pO2 105.0 H 281.0 H HCO3 14.2 L 13.6 L ABG pH 7.23 L 7.21 L ABG Total CO2 15.2 L 14.6 L ABG O2 Saturation 98.7 H 100.0 H ABG O2 Content 14.0 L 12.2 L ABG Base Excess -12.3 L -13.2 L ABG Hemoglobin 10.3 L 8.4 L ABG Carboxyhemoglobin 2.4 H 2.2 H POC ABG HHb (Measured) 1.3 0 ABG Methemoglobin 1.2 0.9 ABG O2 Capacity 14.2 L 12.2 L Hgb O2 Saturation 95.2 96.9 FiO2 35.0 100.0 Sodium Potassium Chloride Carbon Dioxide Anion Gap BUN Creatinine Est GFR ( Amer) Est GFR (Non-Af Amer) POC Glucose (mg/dL) 182 H Random Glucose Calcium Total Bilirubin AST ALT Alkaline Phosphatase Total Protein Albumin Globulin Albumin/Globulin Ratio Peritoneal Tot Protein Hepatitis Be Antigen Blood Type Antibody Screen BBK History Checked 05/15/16 05/15/16 07:34 07:57 WBC 11.6 H RBC 2.79 L Hgb 8.1 L Hct 24.0 L MCV 86.0 MCH 29.0 MCHC 33.8 RDW 16.6 H Plt Count 45 L* pCO2 pO2 HCO3 ABG pH ABG Total CO2 ABG O2 Saturation ABG O2 Content ABG Base Excess ABG Hemoglobin ABG Carboxyhemoglobin POC ABG HHb (Measured) ABG Methemoglobin ABG O2 Capacity Hgb O2 Saturation FiO2 Sodium 129 L Potassium 4.5 Chloride 99 Carbon Dioxide 18 L Anion Gap 17 BUN 134 H* Creatinine 5.6 H Est GFR ( Amer) 12 Est GFR (Non-Af Amer) 10 POC Glucose (mg/dL) 192 H Random Glucose 154 H Calcium 5.9 L* Total Bilirubin 0.6 AST 33 ALT 32 Alkaline Phosphatase 153 H Total Protein 5.6 L Albumin 2.2 L Globulin 3.5 Albumin/Globulin Ratio 0.6 L Peritoneal Tot Protein Hepatitis Be Antigen Blood Type Antibody Screen BBK History Checked Fingerstick Blood Sugar Results: 182 Review of Systems - Review of Systems Systems not reviewed;Unavailable: Intubated Critical Care Progress Note - Ventilator Checklist Head of Bed 30 Degrees: Yes - Nutrition Nutrition: Nutrition Category Date Time Status Dysphagia/Modified Consistency Diet [DIET] Diets 05/10/16 Dinner Ordered Assessment/Plan - Assessment and Plan (Free Text) Assessment: 65 y/o M with PMH of Pancreatic Cancer, Bladder Cancer, HTN, and DM in the ICU with Ventilator dependent hypoxic respiratory failure 2/2 severe sepsis 2/2 SBP, bacteremia. Repeat blood cultures are negative. Worsening kidney function with BUN 126->134 and Cr 4.4->5.6 Plan: Neuro: - Intubated - Head CT (05/07/16) shows right frontoparietal encephalomalacia. Acute on chronic infarction cannot be excluded. -Propfol drip -Ativan PRN Cardio: - On Levophed - Keep MAP >65 - Initial Echocardiogram shows normal EF with no vegetations - Cardiology following Pulm: - Vent Intubated: 60% /07/15/400 - Continue to keep O2 sat >90% - Pulmonology, Dr. Lino following -Nebulizer -Steroid -Aspiration precaution GI: - s/p Paracentesis: 8L out - significant for SBP - ascites fluid culture is negative after 24 hours - on vanco - C. diff antigen positive - GI prophylaxis - GI following, Dr. Sally Kathleen: - Creatinine: 5.6, BUN 134 - Maintain euvolemia - Strict I's and O's - Replete electrolytes as needed - Nephrology consulted, Dr. Shahid - HD catheter today after platelet transfusion: Consent in chart. ID/Heme: - Afebrile - C. diff antigen + - Continue Vancomycin as per ID - Surgery following for possible port removal, which is possible source of infection - ID consulted, Dr. Erickson - Maintain normothermia - Continue to transfuse to keep Hg above 7 -Platelet 45 today: Transfuse 1 bag : SubQ heparin held for possible HIT Endo: - Insulin sliding scale - Check glucose levels q6h - Maintain euglycemia Dispo: prognosis guarded: f/u Palliative Seen, reviewed, and discussed with attending <Dave Conteh - Last Filed: 05/15/16 12:48> CCU Objective - Vital Signs / Intake & Output Intake and Output (Last 8hrs): Intake & Output 05/14/16 05/15/16 05/15/16 22:59 06:59 14:59 Intake Total 2520 Output Total 20 Balance 2500 Intake: IV 1800 Right Subclavian 1800 Oral 720 Output: Urine 20 Urethral (Beard) 20 Oral Regurgitation 0 Other: Voiding Method Indwelling Catheter # Bowel Movements 1 - Medications Active Medications: Active Medications Generic Name Dose Route Start Last Admin Trade Name Freq PRN Reason Stop Dose Admin Albuterol/Ipratropium 3 ml 05/08/16 09:41 05/15/16 07:28 Duoneb 3 Mg/0.5 Mg (3 Ml) Ud IH 3 ml [id number] PRN Administration Shortness Of Breath Budesonide 0.5 mg 05/07/16 20:00 05/15/16 07:28 Pulmicort Respules IH 0.5 mg [id number] WIL Administration Chlordiazepoxide 25 mg 04/29/16 11:52 05/06/16 05:15 Librium PO 25 mg Q8 PRN Administration Agitation Protocol Heparin Sodium (Porcine) 5,000 units 05/12/16 22:30 05/14/16 13:00 Heparin SC 5,000 units Q8 WIL Administration Protocol Famotidine 50 mls @ 100 mls/hr 05/12/16 10:00 05/15/16 09:41 Pepcid 20mg/50ml Premix IVPB 100 mls/hr DAILY WIL Administration Propofol 100 mls @ 3.55 mls/hr 05/15/16 05:58 05/15/16 06:58 Diprivan IV 7.101 mls/hr .Q24H PRN Administration TITRATE PER MD ORDER Protocol 5 MCG/KG/MIN Norepinephrine Bitartrate 4 mg 254 mls @ 15.24 mls/hr 05/15/16 08:59 / Sodium Chloride IV .[id number] PRN TITRATE PER MD ORDER Protocol 4 MCG/MIN Insulin Human Lispro 0 units 04/29/16 11:30 05/15/16 07:30 Humalog Low SC Not Given ACHS WIL Protocol Levalbuterol HCl 1.25 mg 05/08/16 08:00 05/14/16 21:26 Xopenex IH 1.25 mg [id number] WIL Administration Lorazepam 2 mg 05/15/16 10:54 Ativan IVP Q6H PRN Anxiety Protocol Saliva Substitute 0 ml 04/30/16 14:00 Saliva Substitute PO 5XD PRN DRY MOUTH Vancomycin HCl 125 mg 05/01/16 10:00 05/14/16 23:00 Vancocin 25 Mg/Ml (Oral Use) PO 125 mg QID WIL Administration Protocol - Patient Studies Lab Studies: Microbiology Studies 05/09/16 10:18 Blood Culture - Final Blood-Thru Central Line NO GROWTH AFTER 5 DAYS Gram Stain - Final TEST NOT PERFORMED 05/09/16 10:18 Blood Culture - Final Blood-Thru Central Line NO GROWTH AFTER 5 DAYS Gram Stain - Final TEST NOT PERFORMED Lab Studies 05/15/16 05/15/16 05/15/16 Range/Units 07:57 07:34 06:00 WBC 11.6 H (4.5-11.0) 10^3/ul RBC 2.79 L (3.5-6.1) 10^6/uL Hgb 8.1 L (14.0-18.0) gm/dL Hct 24.0 L (42.0-52.0) % MCV 86.0 (80.0-105.0) fL MCH 29.0 (25.0-35.0) pg MCHC 33.8 (31.0-37.0) g/dl RDW 16.6 H (11.5-14.5) % Plt Count 45 L* (120.0-450.0) 10^3/uL pCO2 34 L (35-45) mm/Hg pO2 281.0 H (80-100) mm/Hg HCO3 13.6 L (21-28) mmol/L ABG pH 7.21 L (7.35-7.45) ABG Total CO2 14.6 L (22-28) mmol.L ABG O2 Saturation 100.0 H (95-98) % ABG O2 Content 12.2 L (15-23) ML/dl ABG Base Excess -13.2 L (-2.0-3.0) mmol/L ABG Hemoglobin 8.4 L (11.7-17.4) g/dL ABG Carboxyhemoglobin 2.2 H (0.5-1.5) % POC ABG HHb (Measured) 0 (0-5) % ABG Methemoglobin 0.9 (0.0-3.0) % ABG O2 Capacity 12.2 L (16-24) mL/dl Hgb O2 Saturation 96.9 (95.0-98.0) % FiO2 100.0 % Sodium 129 L (132-148) mmol/L Potassium 4.5 (3.6-5.0) mmol/L Chloride 99 (98-107) mmol/L Carbon Dioxide 18 L (21-33) mmol/L Anion Gap 17 (10-20) BUN 134 H* (7-21) mg/dL Creatinine 5.6 H (0.5-1.4) mg/dL Est GFR ( Amer) 12 Est GFR (Non-Af Amer) 10 POC Glucose (mg/dL) 192 H (65-110) mg/dL Random Glucose 154 H (70-110) mg/dL Calcium 5.9 L* (8.4-10.5) mg/dL Total Bilirubin 0.6 (0.2-1.3) mg/dL AST 33 (15-59) U/L ALT 32 (7-56) U/L Alkaline Phosphatase 153 H (38-133) U/L Total Protein 5.6 L (5.8-8.3) g/dL Albumin 2.2 L (3.0-4.8) g/dL Globulin 3.5 gm/dL Albumin/Globulin Ratio 0.6 L (1.1-1.8) Peritoneal Tot Protein (()) g/dL Hepatitis Be Antigen (Nonreactive) Blood Type Antibody Screen BBK History Checked 05/15/16 05/14/16 05/14/16 Range/Units 05:00 22:02 16:22 WBC (4.5-11.0) 10^3/ul RBC (3.5-6.1) 10^6/uL Hgb (14.0-18.0) gm/dL Hct (42.0-52.0) % MCV (80.0-105.0) fL MCH (25.0-35.0) pg MCHC (31.0-37.0) g/dl RDW (11.5-14.5) % Plt Count (120.0-450.0) 10^3/uL pCO2 34 L (35-45) mm/Hg pO2 105.0 H (80-100) mm/Hg HCO3 14.2 L (21-28) mmol/L ABG pH 7.23 L (7.35-7.45) ABG Total CO2 15.2 L (22-28) mmol.L ABG O2 Saturation 98.7 H (95-98) % ABG O2 Content 14.0 L (15-23) ML/dl ABG Base Excess -12.3 L (-2.0-3.0) mmol/L ABG Hemoglobin 10.3 L (11.7-17.4) g/dL ABG Carboxyhemoglobin 2.4 H (0.5-1.5) % POC ABG HHb (Measured) 1.3 (0-5) % ABG Methemoglobin 1.2 (0.0-3.0) % ABG O2 Capacity 14.2 L (16-24) mL/dl Hgb O2 Saturation 95.2 (95.0-98.0) % FiO2 35.0 % Sodium (132-148) mmol/L Potassium (3.6-5.0) mmol/L Chloride (98-107) mmol/L Carbon Dioxide (21-33) mmol/L Anion Gap (10-20) BUN (7-21) mg/dL Creatinine (0.5-1.4) mg/dL Est GFR ( Amer) Est GFR (Non-Af Amer) POC Glucose (mg/dL) 182 H 250 H (65-110) mg/dL Random Glucose (70-110) mg/dL Calcium (8.4-10.5) mg/dL Total Bilirubin (0.2-1.3) mg/dL AST (15-59) U/L ALT (7-56) U/L Alkaline Phosphatase (38-133) U/L Total Protein (5.8-8.3) g/dL Albumin (3.0-4.8) g/dL Globulin gm/dL Albumin/Globulin Ratio (1.1-1.8) Peritoneal Tot Protein (()) g/dL Hepatitis Be Antigen (Nonreactive) Blood Type Antibody Screen BBK History Checked 05/14/16 05/14/16 05/14/16 Range/Units 16:20 11:27 07:16 WBC (4.5-11.0) 10^3/ul RBC (3.5-6.1) 10^6/uL Hgb (14.0-18.0) gm/dL Hct (42.0-52.0) % MCV (80.0-105.0) fL MCH (25.0-35.0) pg MCHC (31.0-37.0) g/dl RDW (11.5-14.5) % Plt Count (120.0-450.0) 10^3/uL pCO2 (35-45) mm/Hg pO2 (80-100) mm/Hg HCO3 (21-28) mmol/L ABG pH (7.35-7.45) ABG Total CO2 (22-28) mmol.L ABG O2 Saturation (95-98) % ABG O2 Content (15-23) ML/dl ABG Base Excess (-2.0-3.0) mmol/L ABG Hemoglobin (11.7-17.4) g/dL ABG Carboxyhemoglobin (0.5-1.5) % POC ABG HHb (Measured) (0-5) % ABG Methemoglobin (0.0-3.0) % ABG O2 Capacity (16-24) mL/dl Hgb O2 Saturation (95.0-98.0) % FiO2 % Sodium (132-148) mmol/L Potassium (3.6-5.0) mmol/L Chloride (98-107) mmol/L Carbon Dioxide (21-33) mmol/L Anion Gap (10-20) BUN (7-21) mg/dL Creatinine (0.5-1.4) mg/dL Est GFR ( Amer) Est GFR (Non-Af Amer) POC Glucose (mg/dL) 191 H 170 H (65-110) mg/dL Random Glucose (70-110) mg/dL Calcium (8.4-10.5) mg/dL Total Bilirubin (0.2-1.3) mg/dL AST (15-59) U/L ALT (7-56) U/L Alkaline Phosphatase (38-133) U/L Total Protein (5.8-8.3) g/dL Albumin (3.0-4.8) g/dL Globulin gm/dL Albumin/Globulin Ratio (1.1-1.8) Peritoneal Tot Protein (()) g/dL Hepatitis Be Antigen (Nonreactive) Blood Type A POSITIVE Antibody Screen Negative BBK History Checked Patient has bt 05/13/16 05/09/16 Range/Units 09:55 14:15 WBC (4.5-11.0) 10^3/ul RBC (3.5-6.1) 10^6/uL Hgb (14.0-18.0) gm/dL Hct (42.0-52.0) % MCV (80.0-105.0) fL MCH (25.0-35.0) pg MCHC (31.0-37.0) g/dl RDW (11.5-14.5) % Plt Count (120.0-450.0) 10^3/uL pCO2 (35-45) mm/Hg pO2 (80-100) mm/Hg HCO3 (21-28) mmol/L ABG pH (7.35-7.45) ABG Total CO2 (22-28) mmol.L ABG O2 Saturation (95-98) % ABG O2 Content (15-23) ML/dl ABG Base Excess (-2.0-3.0) mmol/L ABG Hemoglobin (11.7-17.4) g/dL ABG Carboxyhemoglobin (0.5-1.5) % POC ABG HHb (Measured) (0-5) % ABG Methemoglobin (0.0-3.0) % ABG O2 Capacity (16-24) mL/dl Hgb O2 Saturation (95.0-98.0) % FiO2 % Sodium (132-148) mmol/L Potassium (3.6-5.0) mmol/L Chloride (98-107) mmol/L Carbon Dioxide (21-33) mmol/L Anion Gap (10-20) BUN (7-21) mg/dL Creatinine (0.5-1.4) mg/dL Est GFR ( Amer) Est GFR (Non-Af Amer) POC Glucose (mg/dL) (65-110) mg/dL Random Glucose (70-110) mg/dL Calcium (8.4-10.5) mg/dL Total Bilirubin (0.2-1.3) mg/dL AST (15-59) U/L ALT (7-56) U/L Alkaline Phosphatase (38-133) U/L Total Protein (5.8-8.3) g/dL Albumin (3.0-4.8) g/dL Globulin gm/dL Albumin/Globulin Ratio (1.1-1.8) Peritoneal Tot Protein <3.0 (()) g/dL Hepatitis Be Antigen Nonreactive (Nonreactive) Blood Type Antibody Screen BBK History Checked Laboratory Results - last 24 hr 05/09/16 05/13/16 05/14/16 14:15 09:55 07:16 WBC RBC Hgb Hct MCV MCH MCHC RDW Plt Count pCO2 pO2 HCO3 ABG pH ABG Total CO2 ABG O2 Saturation ABG O2 Content ABG Base Excess ABG Hemoglobin ABG Carboxyhemoglobin POC ABG HHb (Measured) ABG Methemoglobin ABG O2 Capacity Hgb O2 Saturation FiO2 Sodium Potassium Chloride Carbon Dioxide Anion Gap BUN Creatinine Est GFR ( Amer) Est GFR (Non-Af Amer) POC Glucose (mg/dL) 170 H Random Glucose Calcium Total Bilirubin AST ALT Alkaline Phosphatase Total Protein Albumin Globulin Albumin/Globulin Ratio Peritoneal Tot Protein <3.0 Hepatitis Be Antigen Nonreactive Blood Type Antibody Screen BBK History Checked 0305/14/16 05/14/16 11:27 16:20 16:22 WBC RBC Hgb Hct MCV MCH MCHC RDW Plt Count pCO2 pO2 HCO3 ABG pH ABG Total CO2 ABG O2 Saturation ABG O2 Content ABG Base Excess ABG Hemoglobin ABG Carboxyhemoglobin POC ABG HHb (Measured) ABG Methemoglobin ABG O2 Capacity Hgb O2 Saturation FiO2 Sodium Potassium Chloride Carbon Dioxide Anion Gap BUN Creatinine Est GFR ( Amer) Est GFR (Non-Af Amer) POC Glucose (mg/dL) 191 H 250 H Random Glucose Calcium Total Bilirubin AST ALT Alkaline Phosphatase Total Protein Albumin Globulin Albumin/Globulin Ratio Peritoneal Tot Protein Hepatitis Be Antigen Blood Type A POSITIVE Antibody Screen Negative BBK History Checked Patient has bt 05/14/16 05/15/16 05/15/16 22:02 05:00 06:00 WBC RBC Hgb Hct MCV MCH MCHC RDW Plt Count pCO2 34 L 34 L pO2 105.0 H 281.0 H HCO3 14.2 L 13.6 L ABG pH 7.23 L 7.21 L ABG Total CO2 15.2 L 14.6 L ABG O2 Saturation 98.7 H 100.0 H ABG O2 Content 14.0 L 12.2 L ABG Base Excess -12.3 L -13.2 L ABG Hemoglobin 10.3 L 8.4 L ABG Carboxyhemoglobin 2.4 H 2.2 H POC ABG HHb (Measured) 1.3 0 ABG Methemoglobin 1.2 0.9 ABG O2 Capacity 14.2 L 12.2 L Hgb O2 Saturation 95.2 96.9 FiO2 35.0 100.0 Sodium Potassium Chloride Carbon Dioxide Anion Gap BUN Creatinine Est GFR ( Amer) Est GFR (Non-Af Amer) POC Glucose (mg/dL) 182 H Random Glucose Calcium Total Bilirubin AST ALT Alkaline Phosphatase Total Protein Albumin Globulin Albumin/Globulin Ratio Peritoneal Tot Protein Hepatitis Be Antigen Blood Type Antibody Screen BBK History Checked 05/15/16 05/15/16 07:34 07:57 WBC 11.6 H RBC 2.79 L Hgb 8.1 L Hct 24.0 L MCV 86.0 MCH 29.0 MCHC 33.8 RDW 16.6 H Plt Count 45 L* pCO2 pO2 HCO3 ABG pH ABG Total CO2 ABG O2 Saturation ABG O2 Content ABG Base Excess ABG Hemoglobin ABG Carboxyhemoglobin POC ABG HHb (Measured) ABG Methemoglobin ABG O2 Capacity Hgb O2 Saturation FiO2 Sodium 129 L Potassium 4.5 Chloride 99 Carbon Dioxide 18 L Anion Gap 17 BUN 134 H* Creatinine 5.6 H Est GFR ( Amer) 12 Est GFR (Non-Af Amer) 10 POC Glucose (mg/dL) 192 H Random Glucose 154 H Calcium 5.9 L* Total Bilirubin 0.6 AST 33 ALT 32 Alkaline Phosphatase 153 H Total Protein 5.6 L Albumin 2.2 L Globulin 3.5 Albumin/Globulin Ratio 0.6 L Peritoneal Tot Protein Hepatitis Be Antigen Blood Type Antibody Screen BBK History Checked Critical Care Progress Note - Nutrition Nutrition: Nutrition Category Date Time Status Dysphagia/Modified Consistency Diet [DIET] Diets 05/10/16 Dinner Ordered Attending/Attestation - Attestation I have personally seen and examined this patient.: Yes I have fully participated in the care of the patient.: Yes I have reviewed all pertinent clinical information: Yes Notes (Text): 05/15/16 12:28 The patient was seen and examined at the bedside. Patient care was discussed with resident Medical records, lab studies, and imaging were reviewed and management issues were discussed and formulated. Last 24H events reviewed. Agree with above treatment plans as outlined in 's note with addition of the following -hemodynamic monitoring and vasopressor support to maintain MAP>65; continue levophed -mechanical ventilation and o2 supplementation to maintain Spo2 >90 Pao2>60 -monitor for TV 6ml\kg IBW and plateau pressure <30 -pt required reintubation overnight -ABG in AM reviewed -continue nebs -pt was also hypotensive and started on vasopressor support this morning -pt has no access, other then chemoport which is actively being used -high suspicion for chemoport infection and discussed again with surgical team about chemoport removal -triple lumen HD catheter was placed to give vascular access and also to initiate HD as per nephrology team -pt might benefit from tracheostomy \peg placement by surgical team after failing multiple extubation attempts -f\u repeat CXR -continue broad spectrum Abx as per ID team ; f\u cultures ; repeat blood cultures -f\u Bun\Cr and U\o; initiate HD as per renal team; D5W held as Na+ decreased to 129 -f\u serial CBC; consider hematology eval\follow up for thrombocytopenia -platelets given today, monitor for bleeding -start tube feeds and continue aspiration precautions -DVT \ PUD prophylaxis CCM time 42min excluding procedures Procedure Note: Supervised at bedside US guided HD catheter placement Please see resident procedure note in EMR
--- NOTE | 2016-05-15 12:31 | PCM.PROC ---
Procedures Attestation:: I certify that I have explained the specified Operation(s) or Procedure(s), risks, benefits and reasonable alternatives to the Patient and/or other person responsible. The opportunity was given to ask questions and all questions answered - Central Line Placement Right Hemodialysis Access Pt. Placed on Pulse Ox Monitor: Yes Central Line Prep: Chlorhexidine-Alcohol Combination Local Anesthesia Used: Lidocaine 1% Amount of Anesthesia Used (mls): 10 Ultrasound Used for Placement: Yes Central Line Lumen Inserted: triple Post Procedure: Sutured in Place, Good Blood Return, All Ports Aspirated, Flushed, Capped, Sterile Dressing Applied Secured by: Suture Post procedure dressing: Chlorhexidine disc (Biopatch) Patient Tolerated Procedure: No Complications Immediate Complications: None
--- NOTE | 2016-05-15 15:39 | CP.PCM.PN ---
Subjective - Date & Time of Evaluation Date of Evaluation: 05/15/16 Time of Evaluation: 09:30 - Subjective Subjective: Noted events since seeing the patient yesterday: the patient had worsening mental status and had worsening renal failure and worsening respiratory function. The patient has been intubated and is currently on the ventilator again with increased abdominal distention, presumably from re-accumulation of ascites. Currently afebrile, no diarrhea, currently sedated. Objective - Vital Signs/Intake and Output Vital Signs (last 24 hours): Temp Pulse Resp BP Pulse Ox 97.7 F 96 H 22 80/36 L 99 05/15/16 04:00 05/15/16 08:00 05/15/16 05:00 05/15/16 08:00 05/15/16 08:00 - Medications Medications: Current Medications Albuterol/Ipratropium (Duoneb 3 Mg/0.5 Mg (3 Ml) Ud) 3 ml IH [id number] PRN PRN Reason: Shortness Of Breath Last Admin: 05/15/16 07:28 Dose: 3 ml Budesonide (Pulmicort Respules) 0.5 mg IH [id number] WIL Last Admin: 05/15/16 07:28 Dose: 0.5 mg Chlordiazepoxide (Librium) 25 mg PO Q8 PRN; Protocol PRN Reason: Agitation Last Admin: 05/06/16 05:15 Dose: 25 mg Heparin Sodium (Porcine) (Heparin) 5,000 units SC Q8 WIL PRN Reason: Protocol Last Admin: 05/14/16 13:00 Dose: 5,000 units Dextrose (Dextrose 5% In Water 1000 Ml) 1,000 mls @ 150 mls/hr IV .[id number] [facility] Last Admin: 05/15/16 00:56 Dose: 150 mls/hr Famotidine (Pepcid 20mg/50ml Premix) 50 mls @ 100 mls/hr IVPB DAILY [facility] Last Admin: 05/14/16 09:30 Dose: 100 mls/hr Propofol (Diprivan) 100 mls @ 3.55 mls/hr IV .Q24H PRN; Protocol; 5 MCG/KG/MIN PRN Reason: TITRATE PER MD ORDER Last Admin: 05/15/16 06:58 Dose: 7.101 mls/hr Norepinephrine Bitartrate 4 mg (/ Sodium Chloride) 254 mls @ 15.24 mls/hr IV .[id number] PRN; Protocol; 4 MCG/MIN PRN Reason: TITRATE PER MD ORDER Insulin Human Lispro (Humalog Low) 0 units SC ACHS WIL PRN Reason: Protocol Last Admin: 05/15/16 07:30 Dose: Not Given Levalbuterol HCl (Xopenex) 1.25 mg IH TIDRESP [facility] Last Admin: 05/14/16 21:26 Dose: 1.25 mg Saliva Substitute (Saliva Substitute) 0 ml PO 5XD PRN PRN Reason: DRY MOUTH Vancomycin HCl (Vancocin 25 Mg/Ml (Oral Use)) 125 mg PO QID WIL PRN Reason: Protocol Last Admin: 05/14/16 23:00 Dose: 125 mg - Labs Labs: 05/15/16 07:57 05/15/16 07:57 PT 11.4 Seconds (9.9-11.8) 05/08/16 08:30 INR 1.06 (0.93-1.08) 05/08/16 08:30 APTT 40.4 Seconds (23.7-30.8) H 05/13/16 06:00 - Constitutional Appears: Other (Intubated and sedated) - ENT Exam Additional comments: ET tube in place - Neck Exam Neck Exam: absent: Lymphadenopathy, Meningismus - Respiratory Exam Respiratory Exam: Decreased Breath Sounds, Rales (scattered) - Cardiovascular Exam Cardiovascular Exam: +S1, +S2 - GI/Abdominal Exam GI & Abdominal Exam: Distended, Firm, Soft. absent: Guarding, Rigid, Tenderness Assessment and Plan - Assessment and Plan (Free Text) Assessment: Assessment Severe sepsis with acute renal failure and hypoxic respiratory failure (again intubated and on the ventilator) with acute encephalopathy probably from uremia , with persistent Klebsiella pneumoniae bacteremia probably from severe cystitis and pyelonephritis, R/O port infection; also with C diff associated diarrhea, clinically improving; has Micrococcus species in the 05/04/2016 blood cx from the port, which is probably a contaminant (1 out of 4 bottles, and it is unlike other coagulase negative staph) acute anemia Pancreatic cancer S/P chemotherapy and radiation therapy and surgery HTN DM obesity with BMI 34 Plan continue Meropenem day 12 from first negative blood cx (04/29, 04/30, 05/01 cx are positive, now the 05/04 cx are negative in terms of the Klebsiella and the repeat on 05/09 is negative); CT Abdomen and pelvis reviewed; continue PO Vancomycin ( day 13 of 14); 2D echo repeated 05/06/2016 still does not show vegetations; follow up repeat blood cx done did not show persistence of Micrococcus in the blood Ascitic fluid cultures are negative would consider removal of the port because of the persistent Klebsiella bacteremia when feasible (also there needs to be plan to place a new port if the patient still needs chemotherapy) - we are awaiting removal of the port awaiting plan for possible hemodialysis Will continue to follow clinically Overall prognosis continues to be poor
[2016-05-15] MEDS: Levalbuterol 1.25 MG/3 ML Inhal Soln UD IH SCH (20:05)
[2016-05-16 07:08] LABS: MEAN CELL VOLUME 86.1 fL (80.0-105.0); MEAN CORPUSCULAR HGB CONC 33.6 g/dl (31.0-37.0); MEAN PLATELET VOLUME 12.5 fl (7.0-11.0); RED CELL DISTRIBUTION WIDTH 16.9 % (11.5-14.5); WHITE BLOOD COUNT 20.9 10^3/ul (4.5-11.0)
[2016-05-16] MEDS: Levalbuterol 1.25 MG/3 ML Inhal Soln UD IH SCH ×3 (07:29→20:15)
[2016-05-16] MEDS: Budesonide 0.5 mg/2 ml Inhal Susp UD IH SCH ×2 (07:29→20:15)
[2016-05-16 07:34] LABS: ALB/GLOB RATIO 0.6 (1.1-1.8); BILIRUBIN,TOTAL 0.8 mg/dL (0.2-1.3); POTASSIUM 5.2 mmol/L (3.6-5.0)
[2016-05-16 07:50] LABS: HEMATOCRIT 22.3 % (42.0-52.0)
--- NOTE | 2016-05-16 07:50 | CON ---
DATE: 05/15/2016 REASON FOR CONSULTATION: Second opinion is requested for advanced acute kidney injury. HISTORY OF PRESENTING ILLNESS: History is mostly obtained from the chart and other physicians. The patient was unable to provide any history. He is obtunded, minimally responsive. This 65-year-old male with history of NIDDM, alcohol abuse, hypertension, bladder cancer, pancreatic cancer, was initially admitted on 04/29/2016 to the ICU with diarrhea, weakness, fatigue, dehydration , multiple falls at home. He was hypotensive. He had acute kidney injury at the time of presentatio n. His BUN was 87, creatinine was 5.7. His baseline creatinine was 1.0. As per the history, he had had a CT scan of his abdomen with IV contrast prior to admission. He was also found to be profoundl y acidotic, with lactic acidosis as well as anion gap acidosis secondary to ____. He was also though t to have rhabdomyolysis. The patient was aggressively hydrated with alkaline IV fluids. [facility] has been complicated with sepsis, multiorgan dysfunction. The patient has developed spontaneou s bacterial peritonitis, respiratory failure. The patient has been requiring BiPAP lately. He has b een becoming more and more acidotic. His renal function has continued to worsen. He had improvement in his renal function initially with IV hydration with alkaline fluid. His creatinine came down fro m 5.7 to 1.4. But for the last one week, his renal function deteriorated. His mental status is wors ening. Currently, he is obtunded, somnolent. He is also found to have VRE in his urine. He did hav e Klebsiella bacteremia at the time of admission. He is becoming profoundly thrombocytopenic. His urine output is dwindling for the last 48 hours. His urine output was 120 mL in the last 24 hour s and 65 mL in the previous 24 hours. He is also hypotensive. Family is requesting dialysis. PAST MEDICAL AND SURGICAL HISTORY: As mentioned above NIDDM, hypertension, bladder cancer, pancreati c cancer, history of chemotherapy, not a surgical candidate for his pancreatic cancer because of port al vein involvement, history of alcohol abuse. FAMILY HISTORY: Noncontributory. SOCIAL HISTORY: History of alcohol abuse. No smoking, no drug abuse. He is . ALLERGIES: PENICILLIN. CURRENT MEDICATIONS: Ativan p.r.n., Diprivan IV, DuoNeb, Librium, Pepcid, Pulmicort, vancomycin 125 p.o. q.i.d., Xopenex. REVIEW OF SYSTEMS: Unavailable as the patient is unable to cooperate with systems review. PHYSICAL EXAMINATION: GENERAL: Obese, elderly male lying in the bed in the ICU on nasal cannula. VITAL SIGNS: Blood pressure 117/59, heart rate 107, respiratory rate 22-26, temperature 97.8. HEENT: Normocephalic, atraumatic. Pupils are 3 mm, reactive to light. NECK: Supple. No JVD. LUNGS: Bilateral rhonchi, equal expansion, equal air entry. CARDIAC: S1, S2, regular rate and rhythm. No murmur, no rub. ABDOMEN: Obese, distended, soft, tympanitic. Bowel sounds sluggish. EXTREMITIES: 2+ pitting edema of the lower extremities. INTAKE AND OUTPUT: 3830/120. LABORATORY DATA: WBC 10.3, hemoglobin 9.3, hematocrit 27.8, platelets 42. Sodium 137, potassium 4.1 , chloride 103, CO2 19, BUN 126, creatinine 4.4, glucose 156, calcium 7.2. AST 30, ALT 29, albumin 2 .4. Corrected calcium ____. ABG: PH 7.31, pCO2 28, pO2 118. Urinalysis from 05/09/2016: Yellow, cloudy, with pH of 6.0, specifi c gravity 1.020, protein trace, blood large, ____, WBCs too numerous to count. Hepatitis profile neg ative. Peritoneal fluid from 05/09/2016: ____ WBCs 6000, RBCs 15,000, neutrophils 90%. CULTURES: Blood cultures from 05/09/2016: ____. Urine culture from 05/09/2016: VRE. ____ fluid c ulture: No growth. Echocardiogram from 05/06/2016: No valvular vegetation seen. ____ from 05/07/2016: No ____. CT of the abdomen and pelvis on 05/07/2016: Severe cystitis, pelvis ascites. ____ negative for ____. ASSESSMENT AND PLAN: A 65-year-old male, critically ill, with ____ renal function with sepsis, hypot ension, respiratory failure, ____ acute kidney injury in the setting of Klebsiella bacteremia, vancom ycin-resistant Enterococci, spontaneous bacterial peritonitis, underlying auk-tslynys-eptroedps diabe shaheed mellitus, hypertension, bladder cancer, and hypertension not related to surgery. He is seen in s econd opinion for progressive renal failure, worsening kidney function, severe anion gap metabolic ac idosis. The patient ____. The pancreatic cancer in not amenable to treatment. This has a very grim prognosis. But, in light of his acute kidney injury, uremic encephalopathy, I would have no objectio n to acute dialysis to see if will improve. The patient is receiving treatment for his spontaneous b acterial peritonitis and vancomycin-resistant Enterococci. Renal replacement therapy at this time ma y give him some time to recover from these acute infections. Definitely not a candidate for chronic dialysis. But in the setting of family's wishes, a trial of acute dialysis would be considered reaso nable. The case was discussed at length with Dr. Shahid, Dr. Leal, and case management. ____ the care of this critically ill patient. Izabela Basurto MD cc: [phone] TT: 05/15/2016 15:11:49 Confirmation # [id number] Dictation # [id number] 05/16/2016 06:49:29
[2016-05-16] MEDS: Insulin Lispro (humaLOG) LOW Coverage SC SCH ×4 (07:53→22:00)
--- NOTE | 2016-05-16 07:59 | PN ---
DATE: 05/16/2016(650am-740am) SUBJECTIVE: The patient is currently on the ventilator. He is sedated. PHYSICAL EXAMINATION: VITAL SIGNS: Temperature is 98.8, pulse 92, respirations 16/14, blood pressure 96/61. HEENT: Normocephalic, atraumatic. No JVD. CARDIOVASCULAR: Systolic ejection murmur at the lower left sternal border. Questionable S3 gallop. LUNGS: Decreased breath sounds at the bases with minimal crackles. Minimal rhonchi. No wheezing. EXTREMITIES: Mild edema. No cyanosis, no clubbing. GASTROINTESTINAL: Abdomen is soft. It remains distended. Bowel sounds are positive. SKIN: No acute rash. NEUROLOGIC: Limited at the present time. PERTINENT LABORATORY DATA: Chest x-ray was last done on 05/15/16 and reviewed. There is no significant change from the previous films. Arterial blood gas was also ordered for the morning - not in the computer at the present time. IMPRESSION: 1. Respiratory failure. 2. Klebsiella sepsis. 3. Severe cystitis. 4. Severe anemia. 5. Advanced pancreatic cancer. Positive ascites. 6. Bladder cancer. 7. Worsening renal dysfunction. PLAN: The patient remains in the ICU. He is now intubated and sedated. I did discuss the case with the nursing staff yesterday and today at length. Apparently, the patient was reintubated early yesterday morning - for lethargy and shortness of breath. I did review the last x-ray in the computer. That x- ray does not show any significant change from the previous films. I am also awaiting a repeat arterial blood gas to be done. On physical exam, no significant bronchospasm is noted. I will continue with the current nebulizer treatments for now. Unfortunately, the patient's renal status/parameters continues to worsen. Input by Dr. Shahid is noted. GI input is also noted. Additional repeat a.m. labs - pending. Clinical status/prognosis remains very poor overall. I will discuss the above with the entire ICU team in the next few moments. I will also discuss the above with Dr. Dorsey later this morning. Kenroy Lino MD cc: [phone] TT: 05/16/2016 07:58:53 Confirmation # [id number] Dictation # [id number] jn MTDD
[2016-05-16 08:01] LABS: ARTERIAL BLOOD GAS HCO3 13.4 mmol/L (21-28); ARTERIAL BLOOD GAS O2 CAPACITY 10.8 mL/dl (16-24); ARTERIAL BLOOD GAS O2 CONTENT 10.8 ML/dl (15-23); ARTERIAL BLOOD HGB O2 SAT 96.5 % (95.0-98.0); HHB 0.4 % (0-5); METHEMOGLOBIN 1.1 % (0.0-3.0)
[2016-05-16 08:02] LABS: CALCIUM 5.2 mg/dL (8.4-10.5)
[2016-05-16 08:03] LABS: ARTERIAL BLOOD GAS PH 7.19 (7.35-7.45)
[2016-05-16 08:06] LABS: MAGNESIUM 1.8 mg/dL (1.7-2.2)
[2016-05-16 08:13] LABS: PHOSPHOROUS 12.7 mg/dL (2.5-4.5)
[2016-05-16] MEDS ORDERED: Sod Polystyrene Sulf 15 gm/60 ml Oral Susp PO ONE (08:17)
--- NOTE | 2016-05-16 08:39 | CP.PCM.PN ---
Subjective - Date & Time of Evaluation Date of Evaluation: 05/16/16 Time of Evaluation: 07:20 - Subjective Subjective: Pt seen and evaluated at bedside. Pt is intubated and sedated. Pt is on mechanical ventilator and is afebrile overnight. Less responsive than day before. Objective - Vital Signs/Intake and Output Vital Signs (last 24 hours): Temp Pulse Resp BP Pulse Ox 98.8 F 92 H 25 H 96/61 L 93 L 05/16/16 04:00 05/16/16 04:20 05/16/16 07:45 05/16/16 04:20 05/16/16 07:45 Intake and Output: 05/16/16 05/16/16 06:59 18:59 Intake Total 348 Output Total 30 Balance 318 - Medications Medications: Current Medications Albuterol/Ipratropium (Duoneb 3 Mg/0.5 Mg (3 Ml) Ud) 3 ml IH [id number] PRN PRN Reason: Shortness Of Breath Last Admin: 05/15/16 07:28 Dose: 3 ml Budesonide (Pulmicort Respules) 0.5 mg IH [id number] WIL Last Admin: 05/16/16 07:29 Dose: 0.5 mg Heparin Sodium (Porcine) (Heparin) 5,000 units SC Q8 WIL PRN Reason: Protocol Last Admin: 05/14/16 13:00 Dose: 5,000 units Famotidine (Pepcid 20mg/50ml Premix) 50 mls @ 100 mls/hr IVPB DAILY [facility] Last Admin: 05/15/16 09:41 Dose: 100 mls/hr Propofol (Diprivan) 100 mls @ 3.55 mls/hr IV .Q24H PRN; Protocol; 5 MCG/KG/MIN PRN Reason: TITRATE PER MD ORDER Last Titration: 05/15/16 20:45 Dose: 20 mcg/kg/min Norepinephrine Bitartrate 4 mg (/ Sodium Chloride) 254 mls @ 15.24 mls/hr IV .[id number] PRN; Protocol; 4 MCG/MIN PRN Reason: TITRATE PER MD ORDER Last Admin: 05/15/16 09:30 Dose: 15.24 mls/hr Calcium Gluconate 1,000 mg/ (Dextrose) 110 mls @ 110 mls/hr IVPB ONCE ONE Stop: 05/16/16 09:16 Insulin Human Lispro (Humalog Low) 0 units SC ACHS WIL PRN Reason: Protocol Last Admin: 05/16/16 07:53 Dose: Not Given Levalbuterol HCl (Xopenex) 1.25 mg IH TIDRESP WIL Last Admin: 05/16/16 07:29 Dose: 1.25 mg Lorazepam (Ativan) 2 mg IVP Q6H PRN; Protocol PRN Reason: Anxiety Vancomycin HCl (Vancocin 25 Mg/Ml (Oral Use)) 125 mg PO QID WIL PRN Reason: Protocol Last Admin: 05/15/16 21:22 Dose: 125 mg - Labs Labs: 05/16/16 06:30 05/16/16 07:00 PT 11.4 Seconds (9.9-11.8) 05/08/16 08:30 INR 1.06 (0.93-1.08) 05/08/16 08:30 APTT 40.4 Seconds (23.7-30.8) H 05/13/16 06:00 - Respiratory Exam Respiratory Exam: Rhonchi - Cardiovascular Exam Cardiovascular Exam: RRR - GI/Abdominal Exam GI & Abdominal Exam: Distended. absent: Tenderness Additional comments: old midline abdominal scar - Extremities Exam Extremities Exam: Pedal Edema. absent: Tenderness - Neurological Exam Neurological Exam: absent: Alert, Awake - Skin Skin Exam: Warm Assessment and Plan - Assessment and Plan (Free Text) Plan: 65M presents with bacteremia possibly to be 2/2 portacath -no OR today -cont current medical management Further recs discuss with Dr. Erik Hi, PGY1
--- NOTE | 2016-05-16 08:40 | PN ---
DATE: 05/16/2016 The patient is hypotensive, remains on a ventilator. He is unresponsive. PHYSICAL EXAMINATION: VITAL SIGNS: Blood pressure is in the 80s systolic. NECK: Negative JVD. LUNGS: Without rales. HEART: Reveals S1, S2. EXTREMITIES: Without change. LABORATORIES: Hemoglobin is down to 7.5. White count is 20.9. BUN and creatinine is 149/6.5. IMPRESSION: 1. Respiratory failure. 2. Hypotension. 3. Renal failure. 4. Sepsis. 5. Pancreatic cancer. PLAN: The patient is hemodynamically compromised at this time. The patient is currently on IV press ors. His multiorgan failure makes his overall prognosis grave. Horacio Rogel MD cc: [phone] TT: 05/16/2016 08:39:20 Confirmation # [id number] Dictation # [id number]
--- NOTE | 2016-05-16 08:58 | PN ---
DATE: 05/16/2016 I saw the patient in the intensive care unit. He is on the ventilator. He is unresponsive. He is o n multiple medications - Diprivan, Ativan, DuoNeb, heparin, insulin, norepinephrine to help his blood pressure, Pepcid, Pulmicort, vancomycin, and Xopenex. He is failing. It is hard to keep his blood pressure elevated. He is in respiratory failure. He is also fluid overloaded and needs to have dial ysis. PHYSICAL EXAMINATION: VITAL SIGNS: Temp 98.8, 91/54 blood pressure with Levophed, 99 O2 sat. HEAD: Atraumatic, normocephalic. HEART: Regular rate. LUNGS: Decreased breath sounds. ABDOMEN: Obese, tense, mildly distended. EXTREMITIES: Have trace edema. LABORATORY DATA: He has a 20.9 white count, which is very high, a 7.5 hemoglobin. He will need to b e transfused, 22.3 hematocrit with 87 platelets. Sodium 130, potassium 5.2. He will need to have so me Kayexalate. BUN 149 and creatinine 6.5. He is in acute renal failure, and therefore, he needs to have the dialysis if we can do that if he survives. Sugar is 104. Calcium is 5.2, getting worse. I replaced some calcium. AST is 32. ALT is 33, alk phos 197. Total protein is 6. He is in grave situation. He is not doing well at all. I feel that he is actively dying. I discuss ed this with the . She still wants everything done. We will do the best we can to keep on top o f his electrolytes, his breathing, his kidneys, and his heart, but his cancer, I think is a winning b attle. We will check the labs. Melquiades Dorsey DO cc: [phone] TT: 05/16/2016 08:58:41 Confirmation # [id number] Dictation # [id number] jn
[2016-05-16] MEDS: Famotidine 20mg/50ml 50 ML IVPB SCH (09:33)
[2016-05-16] MEDS: Vancomycin 25 MG/ML PO SCH ×5 (09:34→21:14)
--- NOTE | 2016-05-16 09:34 | CP.PCM.PN ---
Subjective - Date & Time of Evaluation Date of Evaluation: 05/16/16 Time of Evaluation: 09:10 - Subjective Subjective: Continues to be intubated and sedated. Currently afebrile. Still with distended abdomen. Objective - Vital Signs/Intake and Output Vital Signs (last 24 hours): Temp Pulse Resp BP Pulse Ox 98.8 F 92 H 24 96/61 L 99 05/16/16 04:00 05/16/16 04:20 05/15/16 15:15 05/16/16 04:20 05/16/16 04:20 Intake and Output: 05/15/16 05/16/16 18:59 06:59 Intake Total 953 348 Output Total 25 30 Balance 928 318 - Medications Medications: Current Medications Albuterol/Ipratropium (Duoneb 3 Mg/0.5 Mg (3 Ml) Ud) 3 ml IH [id number] PRN PRN Reason: Shortness Of Breath Last Admin: 05/15/16 07:28 Dose: 3 ml Budesonide (Pulmicort Respules) 0.5 mg IH [id number] [facility] Last Admin: 05/15/16 20:05 Dose: 0.5 mg Chlordiazepoxide (Librium) 25 mg PO Q8 PRN; Protocol PRN Reason: Agitation Last Admin: 05/06/16 05:15 Dose: 25 mg Heparin Sodium (Porcine) (Heparin) 5,000 units SC Q8 WIL PRN Reason: Protocol Last Admin: 05/14/16 13:00 Dose: 5,000 units Famotidine (Pepcid 20mg/50ml Premix) 50 mls @ 100 mls/hr IVPB DAILY [facility] Last Admin: 05/15/16 09:41 Dose: 100 mls/hr Propofol (Diprivan) 100 mls @ 3.55 mls/hr IV .Q24H PRN; Protocol; 5 MCG/KG/MIN PRN Reason: TITRATE PER MD ORDER Last Titration: 05/15/16 20:45 Dose: 20 mcg/kg/min Norepinephrine Bitartrate 4 mg (/ Sodium Chloride) 254 mls @ 15.24 mls/hr IV .[id number] PRN; Protocol; 4 MCG/MIN PRN Reason: TITRATE PER MD ORDER Last Admin: 05/15/16 09:30 Dose: 15.24 mls/hr Insulin Human Lispro (Humalog Low) 0 units SC ACHS [facility] PRN Reason: Protocol Last Admin: 05/15/16 23:00 Dose: Not Given Levalbuterol HCl (Xopenex) 1.25 mg IH TIDRESP [facility] Last Admin: 05/15/16 20:05 Dose: 1.25 mg Lorazepam (Ativan) 2 mg IVP Q6H PRN; Protocol PRN Reason: Anxiety Vancomycin HCl (Vancocin 25 Mg/Ml (Oral Use)) 125 mg PO QID [facility] PRN Reason: Protocol Last Admin: 05/15/16 21:22 Dose: 125 mg - Labs Labs: 05/15/16 07:57 05/15/16 07:57 PT 11.4 Seconds (9.9-11.8) 05/08/16 08:30 INR 1.06 (0.93-1.08) 05/08/16 08:30 APTT 40.4 Seconds (23.7-30.8) H 05/13/16 06:00 - Constitutional Appears: Other (Intubated and sedated) - ENT Exam Additional comments: ET tube in place - Neck Exam Neck Exam: absent: Lymphadenopathy, Meningismus - Respiratory Exam Respiratory Exam: Decreased Breath Sounds, Rales (scattered) Additional comments: right anterior chest wall port site intact - Cardiovascular Exam Cardiovascular Exam: +S1, +S2 - GI/Abdominal Exam GI & Abdominal Exam: Distended, Firm, Soft. absent: Guarding, Rigid, Tenderness Assessment and Plan - Assessment and Plan (Free Text) Plan: Assessment Severe sepsis with acute renal failure and hypoxic respiratory failure (again intubated and on the ventilator) with acute encephalopathy probably from uremia , with persistent Klebsiella pneumoniae bacteremia probably from severe cystitis and pyelonephritis, R/O port infection; also with C diff associated diarrhea, clinically improving; has Micrococcus species in the 05/04/2016 blood cx from the port, which is probably a contaminant (1 out of 4 bottles, and it is unlike other coagulase negative staph) acute anemia Pancreatic cancer S/P chemotherapy and radiation therapy and surgery HTN DM obesity with BMI 34 Plan continue Meropenem day 13 (of at least 14 days) from first negative blood cx (, 04/30, 05/01 cx are positive, now the 05/04 cx are negative in terms of the Klebsiella and the repeat on 05/09 is negative); CT Abdomen and pelvis reviewed; continue PO Vancomycin (day 14 of 14 - will d/c after today); 2D echo repeated still does not show vegetations; follow up repeat blood cx done did not show persistence of Micrococcus in the blood Ascitic fluid cultures are negative would consider removal of the port because of the persistent Klebsiella bacteremia when feasible (also there needs to be plan to place a new port if the patient still needs chemotherapy) - we are awaiting removal of the port when the patient is more stable with better platelet count - however, currently the patient's family is not consenting to port removal awaiting plan for possible hemodialysis Will continue to follow clinically Overall prognosis continues to be poor
--- NOTE | 2016-05-16 09:37 | CP.CCUPN ---
<[place] Hi - Last Filed: 05/16/16 11:25> CCU Subjective - Physician Review Subjective (Free Text): Pt s&e. Pt is sedated on propofol and unarouasble. Intubated. Had HD catheter placed on R fem yesterday. On Levo 4mcg/min. Planned for HD at noon. Family refusing port removal. 05/16/16 11:11 CCU Objective - Vital Signs / Intake & Output Vital Signs (Last 4 hours): Vital Signs Temp Pulse Resp BP Pulse Ox 05/16/16 08:00 98.5 F 05/16/16 07:45 97 H 25 H 101/54 L 92 L 05/16/16 07:40 97 H 107/57 L 92 L 05/16/16 07:35 96 H 99/46 L 93 L 05/16/16 07:34 94 H 92 L 05/16/16 07:30 95 H 99/55 L 92 L 05/16/16 07:25 95 H 100/56 L 92 L 05/16/16 07:20 95 H 96/49 L 92 L 05/16/16 07:15 97 H 88/51 L 92 L 05/16/16 07:10 93 H 86/51 L 93 L 05/16/16 07:05 94 H 90/48 L 94 L 05/16/16 07:00 94 H 91/52 L 92 L 05/16/16 06:55 93 H 95/48 L 91 L 05/16/16 06:50 94 H 90/46 L 92 L 05/16/16 06:45 92 H 97/51 L 93 L 05/16/16 06:40 90 82/51 L 93 L 05/16/16 06:35 91 H 80/42 L 92 L 05/16/16 06:30 95 H 94/48 L 92 L 05/16/16 06:25 95 H 86/45 L 92 L 05/16/16 06:20 95 H 89/50 L 92 L 05/16/16 06:15 89 89/65 L 91 L 05/16/16 06:10 93 H 96/44 L 91 L 05/16/16 06:05 92 H 91/47 L 90 L 05/16/16 06:00 94 H 95/55 L 90 L 05/16/16 05:56 91 H 102/54 L 95 05/16/16 05:50 92 H 96/55 L 94 L 05/16/16 05:45 94 H 100/61 96 05/16/16 05:40 94 H 106/58 L 96 05/16/16 05:35 93 H 100/52 L 96 Intake and Output (Last 8hrs): Intake & Output 05/15/16 05/16/16 05/16/16 22:59 06:59 14:59 Intake Total 953 348 Output Total 25 30 Balance 928 318 Weight 269 lb Intake: IV 640 348 Right Femoral 640 348 Blood Product 293 Apheresis Plts Acda Lr 293 2nd Con Unit [id number] Other 20 Apheresis Plts Acda Lr 20 2nd Con Unit [id number] Output: Urine 25 30 Urethral (Beard) 25 30 Stool 0 Other: Voiding Method Indwelling Catheter Indwelling Catheter # Bowel Movements 2 - Physical Exam Head: Positive for: Atraumatic, Normocephalic Ears: Positive for: Normal. Negative for: Erythema Mouth: Positive for: Moist Mucous Membranes Neck: Negative for: JVD Respiratory/Chest: Positive for: Respiratory Distress, Decreased Breath Sounds, Other (Intubated. 60% fio2 ). Negative for: Accessory Muscle Use, Rales, Rhonchi Cardiovascular: Positive for: Normal S1, S2, Tachycardic Abdomen: Positive for: Distention, Normal Bowel Sounds, Other (Fluids wave ). Negative for: Tenderness, Peritoneal Signs, Rebound, Guarding, Mass/ Organomegaly Genitourinary Male: Positive for: Other (Beard in place.) Back: Positive for: Normal Inspection Upper Extremity: Negative for: Cyanosis, Edema Lower Extremity: Positive for: Edema Skin: Positive for: Warm, Dry, Pale, Other (Chronic venous stasis dermatitis changes to b/l lower extremities). Negative for: Rashes Psychiatric: Negative for: Alert - Medications Active Medications: Active Medications Generic Name Dose Route Start Last Admin Trade Name Freq PRN Reason Stop Dose Admin Albuterol/Ipratropium 3 ml 05/08/16 09:41 05/15/16 07:28 Duoneb 3 Mg/0.5 Mg (3 Ml) Ud IH 3 ml [id number] PRN Administration Shortness Of Breath Budesonide 0.5 mg 05/07/16 20:00 05/16/16 07:29 Pulmicort Respules IH 0.5 mg [id number] WIL Administration Heparin Sodium (Porcine) 5,000 units 05/12/16 22:30 05/14/16 13:00 Heparin SC 5,000 units Q8 WIL Administration Protocol Famotidine 50 mls @ 100 mls/hr 05/12/16 10:00 05/15/16 09:41 Pepcid 20mg/50ml Premix IVPB 100 mls/hr DAILY WIL Administration Propofol 100 mls @ 3.55 mls/hr 05/15/16 05:58 05/16/16 08:50 Diprivan IV 18 mcg/kg/min .Q24H PRN Titration TITRATE PER MD ORDER Protocol 5 MCG/KG/MIN Norepinephrine Bitartrate 4 mg 254 mls @ 15.24 mls/hr 05/15/16 08:59 05/15/16 09:30 / Sodium Chloride IV 15.24 mls/hr .[id number] PRN Administration TITRATE PER MD ORDER Protocol 4 MCG/MIN Insulin Human Lispro 0 units 04/29/16 11:30 05/16/16 07:53 Humalog Low SC Not Given ACHS WIL Protocol Levalbuterol HCl 1.25 mg 05/08/16 08:00 05/16/16 07:29 Xopenex IH 1.25 mg TIDRESP WIL Administration Lorazepam 2 mg 05/15/16 10:54 Ativan IVP Q6H PRN Anxiety Protocol Vancomycin HCl 125 mg 05/01/16 10:00 05/15/16 21:22 Vancocin 25 Mg/Ml (Oral Use) PO 125 mg QID WIL Administration Protocol - Patient Studies Lab Studies: Microbiology Studies 05/14/16 22:15 C. difficile Antigen & Toxin A,B (M - Final Stool Lab Studies 05/16/16 05/16/16 05/16/16 Range/Units 07:50 07:00 06:30 WBC 20.9 H D (4.5-11.0) 10^3/ul RBC 2.59 L (3.5-6.1) 10^6/uL Hgb 7.5 L (14.0-18.0) gm/dL Hct 22.3 L (42.0-52.0) % MCV 86.1 (80.0-105.0) fL MCH 29.0 (25.0-35.0) pg MCHC 33.6 (31.0-37.0) g/dl RDW 16.9 H (11.5-14.5) % Plt Count 87 L (120.0-450.0) 10^3/uL MPV 12.5 H (7.0-11.0) fl pCO2 35 (35-45) mm/Hg pO2 121.0 H (80-100) mm/Hg HCO3 13.4 L (21-28) mmol/L ABG pH 7.19 L* (7.35-7.45) ABG Total CO2 14.5 L (22-28) mmol.L ABG O2 Saturation 99.6 H (95-98) % ABG O2 Content 10.8 L (15-23) ML/dl ABG Base Excess -13.7 L (-2.0-3.0) mmol/L ABG Hemoglobin 7.8 L (11.7-17.4) g/dL ABG Carboxyhemoglobin 2.0 H (0.5-1.5) % POC ABG HHb (Measured) 0.4 (0-5) % ABG Methemoglobin 1.1 (0.0-3.0) % ABG O2 Capacity 10.8 L (16-24) mL/dl Hgb O2 Saturation 96.5 (95.0-98.0) % FiO2 60.0 % Sodium 130 L (132-148) mmol/L Potassium 5.2 H (3.6-5.0) mmol/L Chloride 98 (98-107) mmol/L Carbon Dioxide 16 L (21-33) mmol/L Anion Gap 21 H (10-20) BUN 149 H* (7-21) mg/dL Creatinine 6.5 H (0.5-1.4) mg/dL Est GFR ( Amer) 10 Est GFR (Non-Af Amer) 9 POC Glucose (mg/dL) (65-110) mg/dL Random Glucose 104 (70-110) mg/dL Calcium 5.2 L* (8.4-10.5) mg/dL Phosphorus (2.5-4.5) mg/dL Magnesium (1.7-2.2) mg/dL Total Bilirubin 0.8 (0.2-1.3) mg/dL AST 32 (15-59) U/L ALT 33 (7-56) U/L Alkaline Phosphatase 197 H (38-133) U/L Total Protein 6.0 (5.8-8.3) g/dL Albumin 2.3 L (3.0-4.8) g/dL Globulin 3.7 gm/dL Albumin/Globulin Ratio 0.6 L (1.1-1.8) Blood Type Antibody Screen Crossmatch BBK History Checked 05/16/16 05/15/16 05/14/16 Range/Units 06:00 21:27 16:20 WBC (4.5-11.0) 10^3/ul RBC (3.5-6.1) 10^6/uL Hgb (14.0-18.0) gm/dL Hct (42.0-52.0) % MCV (80.0-105.0) fL MCH (25.0-35.0) pg MCHC (31.0-37.0) g/dl RDW (11.5-14.5) % Plt Count (120.0-450.0) 10^3/uL MPV (7.0-11.0) fl pCO2 (35-45) mm/Hg pO2 (80-100) mm/Hg HCO3 (21-28) mmol/L ABG pH (7.35-7.45) ABG Total CO2 (22-28) mmol.L ABG O2 Saturation (95-98) % ABG O2 Content (15-23) ML/dl ABG Base Excess (-2.0-3.0) mmol/L ABG Hemoglobin (11.7-17.4) g/dL ABG Carboxyhemoglobin (0.5-1.5) % POC ABG HHb (Measured) (0-5) % ABG Methemoglobin (0.0-3.0) % ABG O2 Capacity (16-24) mL/dl Hgb O2 Saturation (95.0-98.0) % FiO2 % Sodium (132-148) mmol/L Potassium (3.6-5.0) mmol/L Chloride (98-107) mmol/L Carbon Dioxide (21-33) mmol/L Anion Gap (10-20) BUN (7-21) mg/dL Creatinine (0.5-1.4) mg/dL Est GFR ( Amer) Est GFR (Non-Af Amer) POC Glucose (mg/dL) 131 H (65-110) mg/dL Random Glucose (70-110) mg/dL Calcium (8.4-10.5) mg/dL Phosphorus 12.7 H (2.5-4.5) mg/dL Magnesium 1.8 (1.7-2.2) mg/dL Total Bilirubin (0.2-1.3) mg/dL AST (15-59) U/L ALT (7-56) U/L Alkaline Phosphatase (38-133) U/L Total Protein (5.8-8.3) g/dL Albumin (3.0-4.8) g/dL Globulin gm/dL Albumin/Globulin Ratio (1.1-1.8) Blood Type A POSITIVE Antibody Screen Negative Crossmatch See Detail BBK History Checked Patient has bt Laboratory Results - last 24 hr 05/14/16 05/15/16 05/16/16 16:20 21:27 06:00 WBC RBC Hgb Hct MCV MCH MCHC RDW Plt Count MPV pCO2 pO2 HCO3 ABG pH ABG Total CO2 ABG O2 Saturation ABG O2 Content ABG Base Excess ABG Hemoglobin ABG Carboxyhemoglobin POC ABG HHb (Measured) ABG Methemoglobin ABG O2 Capacity Hgb O2 Saturation FiO2 Sodium Potassium Chloride Carbon Dioxide Anion Gap BUN Creatinine Est GFR ( Amer) Est GFR (Non-Af Amer) POC Glucose (mg/dL) 131 H Random Glucose Calcium Phosphorus 12.7 H Magnesium 1.8 Total Bilirubin AST ALT Alkaline Phosphatase Total Protein Albumin Globulin Albumin/Globulin Ratio Blood Type A POSITIVE Antibody Screen Negative Crossmatch See Detail BBK History Checked Patient has bt 05/16/16 05/16/16 05/16/16 06:30 07:00 07:50 WBC 20.9 H D RBC 2.59 L Hgb 7.5 L Hct 22.3 L MCV 86.1 MCH 29.0 MCHC 33.6 RDW 16.9 H Plt Count 87 L MPV 12.5 H pCO2 35 pO2 121.0 H HCO3 13.4 L ABG pH 7.19 L* ABG Total CO2 14.5 L ABG O2 Saturation 99.6 H ABG O2 Content 10.8 L ABG Base Excess -13.7 L ABG Hemoglobin 7.8 L ABG Carboxyhemoglobin 2.0 H POC ABG HHb (Measured) 0.4 ABG Methemoglobin 1.1 ABG O2 Capacity 10.8 L Hgb O2 Saturation 96.5 FiO2 60.0 Sodium 130 L Potassium 5.2 H Chloride 98 Carbon Dioxide 16 L Anion Gap 21 H BUN 149 H* Creatinine 6.5 H Est GFR ( Amer) 10 Est GFR (Non-Af Amer) 9 POC Glucose (mg/dL) Random Glucose 104 Calcium 5.2 L* Phosphorus Magnesium Total Bilirubin 0.8 AST 32 ALT 33 Alkaline Phosphatase 197 H Total Protein 6.0 Albumin 2.3 L Globulin 3.7 Albumin/Globulin Ratio 0.6 L Blood Type Antibody Screen Crossmatch BBK History Checked Fingerstick Blood Sugar Results: 117 Review of Systems - Review of Systems Systems not reviewed;Unavailable: Intubated Critical Care Progress Note - Ventilator Checklist Head of Bed 30 Degrees: Yes Daily Sedation Vacation: Yes PUD Prophalyxis: Yes - Extremities/Vascular Does the Patient need a Central Venous Catheter?: Yes Does the Patient have a Beard Catheter?: Yes Does the Patient need a Beard Catheter?: Yes - Nutrition Nutrition: Nutrition Category Date Time Status NPO Diet [DIET] Diets 05/15/16 Breakfast Ordered Assessment/Plan - Assessment and Plan (Free Text) Assessment: 65 y/o M with PMH of Pancreatic Cancer, Bladder Cancer, HTN, and DM in the ICU with Ventilator dependent hypoxic respiratory failure 2/2 severe sepsis 2/2 SBP, bacteremia. Repeat blood cultures are negative. Worsening kidney function with BUN 126->134->149 and Cr 4.4->5.6->6.5 Plan: Neuro: - Intubated - Head CT (05/07/16) shows right frontoparietal encephalomalacia. Acute on chronic infarction cannot be excluded. -Propfol drip -Ativan PRN Cardio: - On Levophed 4mcg - Keep MAP >65 - Initial Echocardiogram shows normal EF with no vegetations - Cardiology following Pulm: - Vent Intubated: 60% /5//400 - Continue to keep O2 sat >90% PaO2 60%, - Pulmonology, Dr. Lino following -Nebulizer/abulterol/Duoneb -Steroid -Aspiration precaution -Possible Trach and PEG GI: - s/p Paracentesis: 8L out - significant for SBP - ascites fluid culture is negative after 24 hours - on vanco - C. diff antigen positive - GI prophylaxis - GI following, Dr. Zavala Nephro: - Creatinine: 5.6, BUN 134 - Maintain euvolemia - Strict I's and O's - Replete electrolytes as needed - Nephrology consulted, Dr. Shahid - HD today at Noon. ID/Heme: - Afebrile - C. diff antigen +, VRE urine cx - ABX as per ID: Merrem, Daptomycin - Surgery following for possible port removal, which is possible source of infection: Family refusing - ID consulted, Dr. Erickson - Maintain normothermia - Continue to transfuse to keep Hg above 7 -Platelet 87 today: Transfused 2 bag : SubQ heparin held for possible HIT Endo: - Insulin sliding scale - Check glucose levels q6h - Maintain euglycemia Dispo: prognosis guarded: f/u Palliative Seen, reviewed, and discussed with attending <Dave Conteh - Last Filed: 05/16/16 12:10> CCU Objective - Vital Signs / Intake & Output Vital Signs (Last 4 hours): Vital Signs Pulse BP Pulse Ox 05/16/16 10:45 94 H 114/62 94 L 05/16/16 10:40 97 H 109/55 L 93 L 05/16/16 10:35 98 H 113/55 L 93 L 05/16/16 10:30 97 H 113/60 93 L 05/16/16 10:25 97 H 115/63 95 05/16/16 10:20 97 H 109/57 L 94 L 05/16/16 10:15 97 H 110/62 95 05/16/16 10:13 97 H 94 L 05/16/16 10:10 96 H 110/57 L 95 05/16/16 10:05 93 H 109/60 95 05/16/16 10:00 93 H 103/57 L 96 05/16/16 09:55 91 H 93/59 L 97 05/16/16 09:50 93 H 97/50 L 96 05/16/16 09:45 94 H 103/54 L 94 L 05/16/16 09:40 95 H 110/57 L 93 L 05/16/16 09:35 96 H 108/48 L 92 L 05/16/16 09:30 95 H 95/56 L 93 L 05/16/16 09:25 96 H 92/53 L 92 L 05/16/16 09:20 93 H 91/53 L 92 L 05/16/16 09:17 95 H 94/52 L 89 L 05/16/16 09:15 93 H 86/51 L 91 L 05/16/16 09:10 95 H 90/43 L 93 L 05/16/16 09:05 93 H 91/53 L 92 L 05/16/16 09:00 96 H 114/56 L 90 L 05/16/16 08:55 99 H 113/60 93 L 05/16/16 08:50 97 H 104/63 92 L 05/16/16 08:45 97 H 105/59 L 91 L 05/16/16 08:40 97 H 110/61 93 L 05/16/16 08:35 98 H 102/53 L 92 L 05/16/16 08:30 97 H 108/57 L 93 L 05/16/16 08:25 95 H 114/57 L 92 L 05/16/16 08:20 93 H 104/54 L 94 L 05/16/16 08:15 93 H 104/61 95 05/16/16 08:10 89 95/54 L 95 Intake and Output (Last 8hrs): Intake & Output 05/15/16 05/16/16 05/16/16 22:59 06:59 14:59 Intake Total 953 348 Output Total 25 30 Balance 928 318 Weight 269 lb Intake: IV 640 348 Right Femoral 640 348 Blood Product 293 Apheresis Plts Acda Lr 293 2nd Con Unit [id number] Other 20 Apheresis Plts Acda Lr 20 2nd Con Unit [id number] Output: Urine 25 30 Urethral (Beard) 25 30 Stool 0 Other: Voiding Method Indwelling Catheter Indwelling Catheter # Bowel Movements 2 - Medications Active Medications: Active Medications Generic Name Dose Route Start Last Admin Trade Name Freq PRN Reason Stop Dose Admin Albuterol/Ipratropium 3 ml 05/08/16 09:41 05/15/16 07:28 Duoneb 3 Mg/0.5 Mg (3 Ml) Ud IH 3 ml [id number] PRN Administration Shortness Of Breath Budesonide 0.5 mg 05/07/16 20:00 05/16/16 07:29 Pulmicort Respules IH 0.5 mg [id number] WIL Administration Heparin Sodium (Porcine) 5,000 units 05/12/16 22:30 05/14/16 13:00 Heparin SC 5,000 units Q8 WIL Administration Protocol Famotidine 50 mls @ 100 mls/hr 05/12/16 10:00 05/16/16 09:33 Pepcid 20mg/50ml Premix IVPB 100 mls/hr DAILY WIL Administration Propofol 100 mls @ 3.55 mls/hr 05/15/16 05:58 05/16/16 09:51 Diprivan IV 12.781 mls/hr .Q24H PRN Administration TITRATE PER MD ORDER Protocol 5 MCG/KG/MIN Norepinephrine Bitartrate 4 mg 254 mls @ 15.24 mls/hr 05/15/16 08:59 05/16/16 07:57 / Sodium Chloride IV 6 mcg/min .[id number] PRN Titration TITRATE PER MD ORDER Protocol 4 MCG/MIN Meropenem 250 mg/ Sodium 100 mls @ 100 mls/hr 05/16/16 11:30 Chloride IVPB 05/16/16 12:29 Q24H [facility] Protocol Insulin Human Lispro 0 units 04/29/16 11:30 05/16/16 07:53 Humalog Low SC Not Given ACHS [facility] Protocol Levalbuterol HCl 1.25 mg 05/08/16 08:00 05/16/16 07:29 Xopenex IH 1.25 mg TIDRESP WIL Administration Lorazepam 2 mg 05/15/16 10:54 Ativan IVP Q6H PRN Anxiety Protocol Vancomycin HCl 125 mg 05/01/16 10:00 05/16/16 10:16 Vancocin 25 Mg/Ml (Oral Use) PO Not Given QID [facility] Protocol - Patient Studies Lab Studies: Microbiology Studies 05/15/16 10:45 Blood Culture - Preliminary Blood NO GROWTH AFTER 24 HOURS 05/15/16 10:50 Blood Culture - Preliminary Blood NO GROWTH AFTER 24 HOURS 05/14/16 22:15 C. difficile Antigen & Toxin A,B (M - Final Stool Lab Studies 05/16/16 05/16/16 05/16/16 Range/Units 07:50 07:00 06:30 WBC 20.9 H D (4.5-11.0) 10^3/ul RBC 2.59 L (3.5-6.1) 10^6/uL Hgb 7.5 L (14.0-18.0) gm/dL Hct 22.3 L (42.0-52.0) % MCV 86.1 (80.0-105.0) fL MCH 29.0 (25.0-35.0) pg MCHC 33.6 (31.0-37.0) g/dl RDW 16.9 H (11.5-14.5) % Plt Count 87 L (120.0-450.0) 10^3/uL MPV 12.5 H (7.0-11.0) fl pCO2 35 (35-45) mm/Hg pO2 121.0 H (80-100) mm/Hg HCO3 13.4 L (21-28) mmol/L ABG pH 7.19 L* (7.35-7.45) ABG Total CO2 14.5 L (22-28) mmol.L ABG O2 Saturation 99.6 H (95-98) % ABG O2 Content 10.8 L (15-23) ML/dl ABG Base Excess -13.7 L (-2.0-3.0) mmol/L ABG Hemoglobin 7.8 L (11.7-17.4) g/dL ABG Carboxyhemoglobin 2.0 H (0.5-1.5) % POC ABG HHb (Measured) 0.4 (0-5) % ABG Methemoglobin 1.1 (0.0-3.0) % ABG O2 Capacity 10.8 L (16-24) mL/dl Hgb O2 Saturation 96.5 (95.0-98.0) % FiO2 60.0 % Sodium 130 L (132-148) mmol/L Potassium 5.2 H (3.6-5.0) mmol/L Chloride 98 (98-107) mmol/L Carbon Dioxide 16 L (21-33) mmol/L Anion Gap 21 H (10-20) BUN 149 H* (7-21) mg/dL Creatinine 6.5 H (0.5-1.4) mg/dL Est GFR ( Amer) 10 Est GFR (Non-Af Amer) 9 POC Glucose (mg/dL) (65-110) mg/dL Random Glucose 104 (70-110) mg/dL Calcium 5.2 L* (8.4-10.5) mg/dL Phosphorus (2.5-4.5) mg/dL Magnesium (1.7-2.2) mg/dL Total Bilirubin 0.8 (0.2-1.3) mg/dL AST 32 (15-59) U/L ALT 33 (7-56) U/L Alkaline Phosphatase 197 H (38-133) U/L Total Protein 6.0 (5.8-8.3) g/dL Albumin 2.3 L (3.0-4.8) g/dL Globulin 3.7 gm/dL Albumin/Globulin Ratio 0.6 L (1.1-1.8) Blood Type Antibody Screen Crossmatch BBK History Checked 05/16/16 05/15/16 05/14/16 Range/Units 06:00 21:27 16:20 WBC (4.5-11.0) 10^3/ul RBC (3.5-6.1) 10^6/uL Hgb (14.0-18.0) gm/dL Hct (42.0-52.0) % MCV (80.0-105.0) fL MCH (25.0-35.0) pg MCHC (31.0-37.0) g/dl RDW (11.5-14.5) % Plt Count (120.0-450.0) 10^3/uL MPV (7.0-11.0) fl pCO2 (35-45) mm/Hg pO2 (80-100) mm/Hg HCO3 (21-28) mmol/L ABG pH (7.35-7.45) ABG Total CO2 (22-28) mmol.L ABG O2 Saturation (95-98) % ABG O2 Content (15-23) ML/dl ABG Base Excess (-2.0-3.0) mmol/L ABG Hemoglobin (11.7-17.4) g/dL ABG Carboxyhemoglobin (0.5-1.5) % POC ABG HHb (Measured) (0-5) % ABG Methemoglobin (0.0-3.0) % ABG O2 Capacity (16-24) mL/dl Hgb O2 Saturation (95.0-98.0) % FiO2 % Sodium (132-148) mmol/L Potassium (3.6-5.0) mmol/L Chloride (98-107) mmol/L Carbon Dioxide (21-33) mmol/L Anion Gap (10-20) BUN (7-21) mg/dL Creatinine (0.5-1.4) mg/dL Est GFR ( Amer) Est GFR (Non-Af Amer) POC Glucose (mg/dL) 131 H (65-110) mg/dL Random Glucose (70-110) mg/dL Calcium (8.4-10.5) mg/dL Phosphorus 12.7 H (2.5-4.5) mg/dL Magnesium 1.8 (1.7-2.2) mg/dL Total Bilirubin (0.2-1.3) mg/dL AST (15-59) U/L ALT (7-56) U/L Alkaline Phosphatase (38-133) U/L Total Protein (5.8-8.3) g/dL Albumin (3.0-4.8) g/dL Globulin gm/dL Albumin/Globulin Ratio (1.1-1.8) Blood Type A POSITIVE Antibody Screen Negative Crossmatch See Detail BBK History Checked Patient has bt Laboratory Results - last 24 hr 05/14/16 05/15/16 05/16/16 16:20 21:27 06:00 WBC RBC Hgb Hct MCV MCH MCHC RDW Plt Count MPV pCO2 pO2 HCO3 ABG pH ABG Total CO2 ABG O2 Saturation ABG O2 Content ABG Base Excess ABG Hemoglobin ABG Carboxyhemoglobin POC ABG HHb (Measured) ABG Methemoglobin ABG O2 Capacity Hgb O2 Saturation FiO2 Sodium Potassium Chloride Carbon Dioxide Anion Gap BUN Creatinine Est GFR ( Amer) Est GFR (Non-Af Amer) POC Glucose (mg/dL) 131 H Random Glucose Calcium Phosphorus 12.7 H Magnesium 1.8 Total Bilirubin AST ALT Alkaline Phosphatase Total Protein Albumin Globulin Albumin/Globulin Ratio Blood Type A POSITIVE Antibody Screen Negative Crossmatch See Detail BBK History Checked Patient has bt 05/16/16 05/16/16 05/16/16 06:30 07:00 07:50 WBC 20.9 H D RBC 2.59 L Hgb 7.5 L Hct 22.3 L MCV 86.1 MCH 29.0 MCHC 33.6 RDW 16.9 H Plt Count 87 L MPV 12.5 H pCO2 35 pO2 121.0 H HCO3 13.4 L ABG pH 7.19 L* ABG Total CO2 14.5 L ABG O2 Saturation 99.6 H ABG O2 Content 10.8 L ABG Base Excess -13.7 L ABG Hemoglobin 7.8 L ABG Carboxyhemoglobin 2.0 H POC ABG HHb (Measured) 0.4 ABG Methemoglobin 1.1 ABG O2 Capacity 10.8 L Hgb O2 Saturation 96.5 FiO2 60.0 Sodium 130 L Potassium 5.2 H Chloride 98 Carbon Dioxide 16 L Anion Gap 21 H BUN 149 H* Creatinine 6.5 H Est GFR ( Amer) 10 Est GFR (Non-Af Amer) 9 POC Glucose (mg/dL) Random Glucose 104 Calcium 5.2 L* Phosphorus Magnesium Total Bilirubin 0.8 AST 32 ALT 33 Alkaline Phosphatase 197 H Total Protein 6.0 Albumin 2.3 L Globulin 3.7 Albumin/Globulin Ratio 0.6 L Blood Type Antibody Screen Crossmatch BBK History Checked Critical Care Progress Note - Nutrition Nutrition: Nutrition Category Date Time Status NPO Diet [DIET] Diets 05/15/16 Breakfast Ordered Attending/Attestation - Attestation I have personally seen and examined this patient.: Yes I have fully participated in the care of the patient.: Yes I have reviewed all pertinent clinical information: Yes Notes (Text): 05/16/16 12:07 The patient was seen and examined at the bedside. Patient care was discussed with resident Medical records, lab studies, and imaging were reviewed and management issues were discussed and formulated. Last 24H events reviewed. Agree with above treatment plans as outlined in 's note with addition of the following -hemodynamic monitoring and vasopressor support to maintain MAP>65; continue levophed -mechanical ventilation and o2 supplementation to maintain Spo2 >90 Pao2>60 -monitor for TV 6ml\kg IBW and plateau pressure <30 -ABG in AM reviewed -continue nebs -pt might benefit from tracheostomy \peg placement by surgical team after failing multiple extubation attempts -f\u repeat CXR -continue broad spectrum Abx as per ID team ; f\u cultures -f\u Bun\Cr and U\o; HD as per renal team to start today -f\u serial CBC; hematology f\u -start tube feeds and continue aspiration precautions -family refused chemoport removal as per surgical team -DVT \ PUD prophylaxis CCM time 37min
--- NOTE | 2016-05-16 13:35 | PN ---
DATE: 05/16/2016 SUBJECTIVE: The patient was seen in the intensive care unit. He is currently intubated with an FiO2 of 60%. Beard catheter remains in place. The patient is being sedated with propofol and he is also on Levophed as well. He is not responsive at this time. His abdomen is noted to be quite distended on gross inspection. PHYSICAL EXAMINATION: VITAL SIGNS: Blood pressure is 100/56 with a minimum blood pressure in the last 24-hour period of 82 /42 and a maximum of 115/63. Heart rate is 92 and has ranged from the low to mid-90s in the last 24- hour period. Temperature is 98.5 and the patient has been afebrile for a 48-hour period. Respirator y rate is 25, but has ranged from the 20s to as high as 45 breaths per minute in the last 24-hour per iod. Oxygen saturation is 95%, but has ranged from 89% to 97% in the last 24-hour period. I's and O 's are documented as 1200/50. HEENT: As stated above, the patient is intubated. Conjunctivae are also noted to be pale but anicte yeni. NECK: There was no jugular venous distension. CHEST: Lungs smith were auscultated anteriorly. Lung smith are noted to be clear but breath sound s are quite distant. CARDIAC: Has a regular rate and rhythm. There were no rubs that I could appreciate. ABDOMEN: Markedly distended and tympanic but nontender. EXTREMITIES: Notable for anasarca. GENITOURINARY: Had a Beard catheter in place but there is no suprapubic tenderness. NEUROLOGIC: The patient is sedated and unresponsive as stated above. LABORATORY STUDIES: White count is 20.9, H and H are 7.5/22.3 with a platelet count of 87,000. Ther e is no differential from today. ABG today has a pH of 7.19 with a pCO2 of 35, PaO2 of 121 and an ox ygen saturation of 100% on an FiO2 of 60%. Sodium is 130, potassium is 5.2, chloride 98, bicarbonate 16, anion gap of 21, but since the albumin is 2.3 it corrects to approximately 25; BUN/creatinine ar e 149/6.5, calcium of 5.2 but corrects to approximately 6.6, phosphorus of 12.7, magnesium is 1.8. A ST/ALT is 32/33 with an alkaline phosphatase of 197. Most recent CPK is 28. MICROBIOLOGY: Urine culture is growing vancomycin-resistant enterococcus in the urine. C. diff is n egative for antigen as well as toxin. 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 Hospitalization has also been complicated by Klebseilla pneumoniae bacterem ia in this patient with Port-A-Cath who now also has vancomycin-resistant Enterococci in the urine an d he remains in septic shock, currently being treated with Levophed. 1. The patient has acute kidney injury in the setting of hemodynamic instability and septic shock. After lengthy discussions with the patient's , during which I outlined his overall poor prognosis and my expectation that he would not survive the discharge of this hospitalization, it is still her strong wish that he have hemodialysis. Second nephrology opinion agreed with her wish and, therefore , the patient is to start hemodialysis today. He has a right femoral Trialysis catheter. 2. Access is very limited in this anasarcic patient with thrombocytopenia, so we will continue to ad furnace maintenance Levophed through the infusion port of his Trialysis catheter for now. The Levophed may actu ally need titrated up during his dialysis. 3. The patient is noted to have high anion gap metabolic acidosis. ABG reveals appropriate respirat ory compensation. Dialysis will correct this metabolic acidosis. 4. As his bicarbonate level increases, his ionized calcium will decrease and the patient is already hypocalcemic to begin with. I will, thus, dialyze him against a 3 calcium dialysate solution which w ill provide supraphysiologic levels of calcium. My concern, however, is in so doing, we may precipit ate calcification of organs given the fact that his phosphorus is quite elevated as well. 5. To help explain the etiology of the elevated phosphorus level in this patient, I will also check CPK as well as amylase and lipase. Once the patient is being fed, he will require PhosLo 667 mg via the OG tube every 4 hours. 6. The patient is empirically on vancomycin for possible Clostridium difficile colitis. Infectious disease followup is appreciated. 7. In addition, the patient is noted to have sepsis secondary to a genitourinary source with vancomy jabier-resistant Enterococci in the urine as well as prior imaging that did reveal pyelonephritis. He a lso has spontaneous bacterial peritonitis based on the cell count from his paracentesis and currently also remains on meropenem as well. 8. Overall prognosis remains quite poor. He is on Levophed and being titrated to a mean arterial pr essure of 65 mmHg. 9. Hypokalemia as well as hyperkalemia will also is resolved with hemodialysis as well. 10. We will remove only a low amount of fluid today with his hemodialysis so as not to increase his need for pressor dependence. 11. Given the fact that the patient is increasingly anemic, microangiopathic hemolytic anemia would also be a consideration as well; however, his bilirubin is not elevated. We will check a haptoglobin as well as LDH with his next set of labs. 12. The patient has also received 2 units of packed red blood cells today. 13. For deep vein thrombosis prophylaxis, continue sequential compression devices. He is thrombocyt openic so heparin is on hold. 14. For gastrointestinal prophylaxis, the patient remains on famotidine. 15. The patient is to have his first hemodialysis now under my direct supervision. Via the chart, review of systems, past medical history, social history and family history were all re viewed and there are no new changes. More than 35 minutes were spent in the care of this ICU patient today. Barry Shahid MD cc: [phone] TT: 05/16/2016 13:35:08 Confirmation # [id number] Dictation # [id number] mn
[2016-05-16 18:44] LABS: ADD MANUAL DIFF? NO
[2016-05-16 18:56] LABS: ALB/GLOB RATIO 0.6 (1.1-1.8); BILIRUBIN,TOTAL 1.6 mg/dL (0.2-1.3); POTASSIUM 4.1 mmol/L (3.6-5.0); TOTAL PROTEIN 6.1 g/dL (5.8-8.3)
[2016-05-16 18:58] LABS: BASO # 0.04 K/mm3 (0.0-2.0); BASO % 0.2 % (0.0-3.0); EOS % 0.1 % (1.5-5.0); GRAN # 15.09 (1.4-6.5); GRAN % 89.7 % (50.0-68.0); HEMATOCRIT 26.7 % (42.0-52.0); LYMPH # 0.8 (1.2-3.4); LYMPH % 4.5 % (22.0-35.0); MEAN CELL VOLUME 85.6 fL (80.0-105.0); MEAN CORPUSCULAR HEMOGLOBIN 29.2 pg (25.0-35.0); MEAN CORPUSCULAR HGB CONC 34.1 g/dl (31.0-37.0); MONO # 0.9 (0.1-0.6); MONO % 5.5 % (1.0-6.0); PLATELET COUNT 54 10^3/uL (120.0-450.0); RED CELL DISTRIBUTION WIDTH 16.7 % (11.5-14.5); WHITE BLOOD COUNT 16.8 10^3/ul (4.5-11.0)
[2016-05-16 19:10] LABS: CALCIUM 6.2 mg/dL (8.4-10.5)
[2016-05-17 06:11] LABS: ARTERIAL BLOOD GAS HCO3 15.2 mmol/L (21-28); ARTERIAL BLOOD GAS O2 CONTENT 8.8 ML/dl (15-23); ARTERIAL BLOOD GAS PH 7.27 (7.35-7.45); ARTERIAL BLOOD HGB O2 SAT 95.1 % (95.0-98.0); CARBOXYHEMOGLOBIN 2.2 % (0.5-1.5); METHEMOGLOBIN 0.8 % (0.0-3.0)
[2016-05-17 06:28] LABS: HEMATOCRIT 25.1 % (42.0-52.0); MEAN CELL VOLUME 84.8 fL (80.0-105.0); MEAN CORPUSCULAR HEMOGLOBIN 28.7 pg (25.0-35.0); MEAN CORPUSCULAR HGB CONC 33.9 g/dl (31.0-37.0); MEAN PLATELET VOLUME 11.2 fl (7.0-11.0); RED CELL DISTRIBUTION WIDTH 16.8 % (11.5-14.5); WHITE BLOOD COUNT 16.6 10^3/ul (4.5-11.0)
[2016-05-17 06:45] LABS: ALB/GLOB RATIO 0.6 (1.1-1.8); BILIRUBIN,TOTAL 0.9 mg/dL (0.2-1.3); POTASSIUM 4.4 mmol/L (3.6-5.0); TOTAL PROTEIN 6.1 g/dL (5.8-8.3)
[2016-05-17 06:55] LABS: VENOUS BLOOD GAS BASE EXCESS -7.9 mmol/L (0.0-2.0); VENOUS BLOOD PH 7.26 (7.32-7.43)
[2016-05-17 07:23] LABS: CALCIUM 5.2 mg/dL (8.4-10.5)
--- NOTE | 2016-05-17 07:27 | CP.PCM.PN ---
Subjective - Date & Time of Evaluation Date of Evaluation: 05/17/16 Time of Evaluation: 06:45 - Subjective Subjective: Pt seen and evaluated at bedside. Pt is intubated and sedated. Pt is on mechanical ventilator and is afebrile overnight. Currently not responsive. Objective - Vital Signs/Intake and Output Vital Signs (last 24 hours): Temp Pulse Resp BP Pulse Ox 101 F H 111 H 24 111/59 L 97 05/17/16 04:00 05/17/16 00:17 05/16/16 15:46 05/16/16 23:00 05/16/16 23:00 - Medications Medications: Current Medications Albuterol/Ipratropium (Duoneb 3 Mg/0.5 Mg (3 Ml) Ud) 3 ml IH [id number] PRN PRN Reason: Shortness Of Breath Last Admin: 05/15/16 07:28 Dose: 3 ml Budesonide (Pulmicort Respules) 0.5 mg IH [id number] WIL Last Admin: 05/16/16 20:15 Dose: 0.5 mg Heparin Sodium (Porcine) (Heparin) 5,000 units SC Q8 WIL PRN Reason: Protocol Last Admin: 05/14/16 13:00 Dose: 5,000 units Famotidine (Pepcid 20mg/50ml Premix) 50 mls @ 100 mls/hr IVPB DAILY [facility] Last Admin: 05/16/16 09:33 Dose: 100 mls/hr Propofol (Diprivan) 100 mls @ 3.55 mls/hr IV .Q24H PRN; Protocol; 5 MCG/KG/MIN PRN Reason: TITRATE PER MD ORDER Last Admin: 05/16/16 09:51 Dose: 12.781 mls/hr Norepinephrine Bitartrate 4 mg (/ Sodium Chloride) 254 mls @ 15.24 mls/hr IV .[id number] PRN; Protocol; 4 MCG/MIN PRN Reason: TITRATE PER MD ORDER Last Admin: 05/17/16 07:08 Dose: 22.86 mls/hr Daptomycin 730 mg/ Sodium (Chloride) 100 mls @ 200 mls/hr IV Q48H WIL PRN Reason: Protocol Stop: 05/28/16 10:29 Meropenem 500 mg/ Sodium (Chloride) 100 mls @ 100 mls/hr IVPB Q12 WIL PRN Reason: Protocol Stop: 05/22/16 10:01 Insulin Human Lispro (Humalog Low) 0 units SC ACHS WIL PRN Reason: Protocol Last Admin: 05/16/16 22:00 Dose: Not Given Levalbuterol HCl (Xopenex) 1.25 mg IH TIDRESP WIL Last Admin: 05/16/16 20:15 Dose: 1.25 mg Lorazepam (Ativan) 2 mg IVP Q6H PRN; Protocol PRN Reason: Anxiety Vancomycin HCl (Vancocin 25 Mg/Ml (Oral Use)) 125 mg PO QID WIL PRN Reason: Protocol Last Admin: 05/16/16 21:14 Dose: Not Given - Labs Labs: 05/17/16 06:00 05/17/16 06:00 PT 11.4 Seconds (9.9-11.8) 05/08/16 08:30 INR 1.06 (0.93-1.08) 05/08/16 08:30 APTT 40.4 Seconds (23.7-30.8) H 05/13/16 06:00 - Head Exam Head Exam: ATRAUMATIC - ENT Exam ENT Exam: Mucous Membranes Moist - Respiratory Exam Respiratory Exam: Decreased Breath Sounds - Cardiovascular Exam Cardiovascular Exam: Tachycardia - GI/Abdominal Exam GI & Abdominal Exam: absent: Tenderness - Extremities Exam Extremities Exam: Pedal Edema - Neurological Exam Neurological Exam: absent: Alert, Awake Assessment and Plan - Assessment and Plan (Free Text) Plan: 65M presents with bacteremia possibly to be 2/2 portacath -Tentative plan for trach placement on Saturday -cont current medical management Further recs to be discussed with Dr. Erik Hi, PGY1
[2016-05-17] MEDS: Insulin Lispro (humaLOG) LOW Coverage SC SCH ×4 (07:35→22:17)
[2016-05-17] MEDS: Budesonide 0.5 mg/2 ml Inhal Susp UD IH SCH (07:49)
[2016-05-17] MEDS: Levalbuterol 1.25 MG/3 ML Inhal Soln UD IH SCH (07:49)
[2016-05-17 08:04] LABS: MAGNESIUM 1.8 mg/dL (1.7-2.2); PHOSPHOROUS 10.5 mg/dL (2.5-4.5)
--- NOTE | 2016-05-17 08:38 | PN ---
DATE: 05/17/2016(615am--705am) SUBJECTIVE: The patient remains on the ventilator. He is currently sedated. PHYSICAL EXAMINATION: VITAL SIGNS: Temperature is 98.5, pulse on the monitor is 107, respiratory rate 16/14, blood pressure 111/59. HEENT: Normocephalic, atraumatic. No JVD. CARDIOVASCULAR: Systolic ejection murmur at the lower left sternal border. Questionable S3 gallop. LUNGS: Decreased breath sounds at the bases with minimal crackles. Less rhonchi. No wheezing. EXTREMITIES: Mild edema. No cyanosis, no clubbing. GASTROINTESTINAL: Abdomen is soft. It remains very distended. Bowel sounds are positive. SKIN: No acute rash. NEUROLOGIC: Limited at the present time. PERTINENT LABORATORY DATA: Chest x-ray was repeated today and reviewed. There appears to be a mild elevation of the right hemidiaphragm - compared to previous films. Subpulmonic effusion cannot be ruled out at this point in time. Arterial blood gas was done on assist control 14, tidal volume 400, FiO2 60%. Results are: PH 7.27, pCO2 of 33, pO2 of 80. IMPRESSION: 1. Respiratory failure. 2. Klebsiella sepsis. 3. Severe cystitis. 4. Severe anemia. 5. Advanced pancreatic cancer. Positive ascites. 6. Bladder cancer. 7. Worsening renal dysfunction. PLAN: The patient remains in the ICU. He remains on the ventilator and sedated. I did discuss the case with the night nurse at length. The night nurse stated that the patient is not doing well overall. He was dialyzed yesterday, but only 500 mL were removed. I would continue with the renal evaluation as per Dr. Shahid. I did review the x-ray as above. There appears to be a mild elevation of the right hemidiaphragm - compared to previous films. This may be due to a subpulmonic effusion. Keep in mind, the patient has significant ascites. I will discuss the above with the ICU team, and consider ultrasound evaluation. I have also reviewed the arterial blood gas. There is a metabolic acidosis noted with a significant increase in the alveolar arterial gradient. I will continue with the current ventilator settings for now. Repeat a.m. labs are pending. Infectious disease and cardiology evaluations are noted. Overall status/prognosis of this patient remains very poor. I will discuss the above with the entire ICU team in the new few moments. I will also discuss the above with Dr. Dorsey. Kenroy Lino MD cc: [id number] TT: 05/17/2016 08:37:50 Confirmation # [id number] Dictation # [id number] brian DELGADO
--- NOTE | 2016-05-17 09:01 | PN ---
DATE: 05/17/2016 I saw him in the intensive care unit. He is on a ventilator, multiple IVs. He is also sedated. He is on Ativan, daptomycin, Diprivan, DuoNeb, insulin coverage, Merrem IV. He is on Levophed for low b lood pressure, Pepcid, Tylenol, vancomycin. He is not arousable. His eyes open, but he is also leth argic. PHYSICAL EXAMINATION: VITAL SIGNS: Temperature 101, pulse 106, blood pressure 94/48, O2 sat 97% on the ventilator. HEENT: His head is atraumatic, normocephalic. HEART: Regular rate and tachycardic. LUNGS: Decreased breath sounds but clear to auscultation. ABDOMEN: Soft, distended. I know he got dialysis the other day and he also got transfused the other day. He is still having fluid balance issues. EXTREMITIES: Trace edema. LABORATORY DATA: His white count bumped to 20, now is it is down to 16. He has 8.5 hemoglobin, 25.1 hematocrit with 56 platelets. I have a feeling that hemoglobin is going to drop below 8 again, if i t does we well transfuse him, 132 sodium, potassium 4.4, BUN 108, creatinine 5.4. He is a little bit better status post dialysis. Calcium is 5.2, I will replace. AST is 32, ALT is 29, alkaline phosph atase of 204, with a 6.1, total protein. PLAN: He is really has a very poor and grave prognosis. I discussed this with the . She wants e verything done. We might be heading towards possible PEG and trach eventually if we cannot wean him. I discussed this with the staff internist office based only in the intensive care unit, to start him on PPN because I do not t hink we are getting him off the ventilator anytime too soon. We will continue with aggressive treatm ent and care. He has multiple issues from pancreatic cancer, bladder cancer, acute renal failure, CH F, electrolyte abnormalities, NSTEMI, anemia. We will continue with aggressive treatment and care. Discussed with the . We will check his labs tomorrow. Melquiades Dorsey DO cc: [id number] TT: 05/17/2016 09:01:18 Confirmation # [id number] Dictation # [id number] jn
--- NOTE | 2016-05-17 09:03 | CP.CCUPN ---
<I[place]ia Hi - Last Filed: 05/17/16 12:03> CCU Subjective - Physician Review Subjective (Free Text): Pt s&e. Pt is sedated on propofol and unarouasble. Intubated. Had HD yesterday took out .5L, transfused 2PRBC. On Levo 6mcg/min. HD today. Family refusing port removal. Fever of 101 ON. Bloody NGT output noted. GI consulted. Palliative on board. CCU Objective - Vital Signs / Intake & Output Vital Signs (Last 4 hours): Vital Signs Temp Pulse BP Pulse Ox 05/17/16 08:00 100.5 F H 05/17/16 07:00 112 H 113/60 95 05/17/16 06:30 110 H 120/61 96 05/17/16 06:00 107 H 116/59 L 96 05/17/16 05:30 114 H 120/74 95 Intake and Output (Last 8hrs): Intake & Output 05/16/16 05/17/16 05/17/16 22:59 06:59 14:59 Intake Total 1428 520 Output Total 1003 520 Balance 425 0 Weight 274 lb Intake: IV 688 520 Right Femoral 688 520 Blood Product 640 Red Blood Cells Cpd As1 320 Lr Unit [id number] Red Blood Cells Cpd As1 320 Lr Unit [id number] Other 100 Red Blood Cells Cpd As1 50 Lr Unit [id number] Red Blood Cells Cpd As1 50 Lr Unit [id number] Output: Gastric Amount 500 500 Nares 500 500 Urine 3 20 Urethral (Beard) 3 20 Other 500 Other: Voiding Method Indwelling Catheter # Bowel Movements 1 1 - Physical Exam Head: Positive for: Atraumatic, Normocephalic Ears: Positive for: Normal. Negative for: Erythema Mouth: Positive for: Moist Mucous Membranes Neck: Negative for: JVD Respiratory/Chest: Positive for: Respiratory Distress, Decreased Breath Sounds, Other (Intubated. 60% fio2 ). Negative for: Accessory Muscle Use, Rales, Rhonchi Cardiovascular: Positive for: Normal S1, S2, Tachycardic Abdomen: Positive for: Distention, Other (Fluids wave ). Negative for: Tenderness, Peritoneal Signs, Rebound, Guarding, Mass/Organomegaly Genitourinary Male: Positive for: Other (Beadr in place. 20/24hrs cloudy urine) Back: Positive for: Normal Inspection Upper Extremity: Positive for: Edema. Negative for: Cyanosis Lower Extremity: Positive for: Edema Skin: Positive for: Warm, Pale, Other (Chronic venous stasis dermatitis changes to b/l lower extremities). Negative for: Rashes Psychiatric: Negative for: Alert - Medications Active Medications: Active Medications Generic Name Dose Route Start Last Admin Trade Name Freq PRN Reason Stop Dose Admin Acetaminophen 650 mg 05/17/16 07:51 Tylenol 650 Mg Supp RC Q6H PRN Fever >100.4 F Albuterol/Ipratropium 3 ml 05/08/16 09:41 05/15/16 07:28 Duoneb 3 Mg/0.5 Mg (3 Ml) Ud IH 3 ml [id number] PRN Administration Shortness Of Breath Famotidine 50 mls @ 100 mls/hr 05/12/16 10:00 05/16/16 09:33 Pepcid 20mg/50ml Premix IVPB 100 mls/hr DAILY [facility] Administration Propofol 100 mls @ 3.55 mls/hr 05/15/16 05:58 05/17/16 07:23 Diprivan IV 20 mcg/kg/min .Q24H PRN Titration TITRATE PER MD ORDER Protocol 5 MCG/KG/MIN Norepinephrine Bitartrate 4 mg 254 mls @ 15.24 mls/hr 05/15/16 08:59 05/17/16 07:08 / Sodium Chloride IV 22.86 mls/hr .[id number] PRN Administration TITRATE PER MD ORDER Protocol 4 MCG/MIN Daptomycin 730 mg/ Sodium 100 mls @ 200 mls/hr 05/18/16 10:00 Chloride IV 05/28/16 10:29 Q48H [facility] Protocol Meropenem 500 mg/ Sodium 100 mls @ 100 mls/hr 05/17/16 10:00 Chloride IVPB 05/22/16 10:01 Q12 [facility] Protocol Calcium Gluconate 1,000 mg/ 110 mls @ 110 mls/hr 05/17/16 08:27 Dextrose IVPB 05/17/16 09:26 ONCE ONE Insulin Human Lispro 0 units 04/29/16 11:30 05/17/16 07:35 Humalog Low SC Not Given ACHS [facility] Protocol Lorazepam 2 mg 05/15/16 10:54 Ativan IVP Q6H PRN Anxiety Protocol Vancomycin HCl 125 mg 05/01/16 10:00 05/16/16 21:14 Vancocin 25 Mg/Ml (Oral Use) PO Not Given QID [facility] Protocol - Patient Studies Lab Studies: Microbiology Studies 05/15/16 10:45 Blood Culture - Preliminary Blood NO GROWTH AFTER 24 HOURS 05/15/16 10:50 Blood Culture - Preliminary Blood NO GROWTH AFTER 24 HOURS Lab Studies 05/17/16 05/17/16 05/17/16 Range/Units 06:40 06:08 06:00 WBC 16.6 H (4.5-11.0) 10^3/ul RBC 2.96 L (3.5-6.1) 10^6/uL Hgb 8.5 L (14.0-18.0) gm/dL Hct 25.1 L (42.0-52.0) % MCV 84.8 (80.0-105.0) fL MCH 28.7 (25.0-35.0) pg MCHC 33.9 (31.0-37.0) g/dl RDW 16.8 H (11.5-14.5) % Plt Count 56 L (120.0-450.0) 10^3/uL MPV 11.2 H (7.0-11.0) fl Gran % (50.0-68.0) % Lymph % (Auto) (22.0-35.0) % [place] % (Auto) (1.0-6.0) % Eos % (Auto) (1.5-5.0) % Baso % (Auto) (0.0-3.0) % Gran # (1.4-6.5) Lymph # (1.2-3.4) [place] # (0.1-0.6) Eos # (0.0-0.7) Baso # (0.0-2.0) K/mm3 pCO2 33 L (35-45) mm/Hg pO2 61 H 80.0 (30-55) mm/Hg HCO3 15.2 L (21-28) mmol/L ABG pH 7.27 L (7.35-7.45) ABG Total CO2 16.2 L (22-28) mmol.L ABG O2 Saturation 97.9 (95-98) % ABG O2 Content 8.8 L (15-23) ML/dl ABG Base Excess -10.7 L (-2.0-3.0) mmol/L ABG Hemoglobin 6.5 L (11.7-17.4) g/dL ABG Carboxyhemoglobin 2.2 H (0.5-1.5) % POC ABG HHb (Measured) 2.0 (0-5) % ABG Methemoglobin 0.8 (0.0-3.0) % ABG O2 Capacity 9.0 L (16-24) mL/dl VBG pH 7.26 L (7.32-7.43) VBG pCO2 42.0 (40-60) VBG HCO3 18.8 L (21-28) mmol/l VBG Total CO2 20.1 L (22-28) mmol.L VBG O2 Sat (Calc) 93.5 H (40-65) % VBG Base Excess -7.9 L (0.0-2.0) mmol/L VBG Potassium 4.4 (3.6-5.2) mmol/L Hgb O2 Saturation 95.1 (95.0-98.0) % Sodium 131.0 L 132 (132-148) mmol/L Chloride 102.0 96 L (98-107) mmol/L Glucose 105 (75-110) mg/dl Lactate 1.5 (0.7-2.1) mmol/L FiO2 21.0 60.0 % Potassium 4.4 (3.6-5.0) mmol/L Carbon Dioxide 21 (21-33) mmol/L Anion Gap 19 (10-20) BUN 108 H (7-21) mg/dL Creatinine 5.4 H (0.5-1.4) mg/dL Est GFR ( Amer) 13 Est GFR (Non-Af Amer) 11 POC Glucose (mg/dL) (65-110) mg/dL Random Glucose 101 (70-110) mg/dL Calcium 5.2 L* (8.4-10.5) mg/dL Phosphorus 10.5 H (2.5-4.5) mg/dL Magnesium 1.8 (1.7-2.2) mg/dL Total Bilirubin 0.9 (0.2-1.3) mg/dL AST 32 (15-59) U/L ALT 29 (7-56) U/L Alkaline Phosphatase 204 H (38-133) U/L Total Creatine Kinase (35-230) U/L CK-MB (CK-2) (0.0-3.6) ng/mL CK-MB (CK-2) % (2.5-3.0) % Total Protein 6.1 (5.8-8.3) g/dL Albumin 2.2 L (3.0-4.8) g/dL Globulin 3.8 gm/dL Albumin/Globulin Ratio 0.6 L (1.1-1.8) Amylase (35-125) U/L Lipase (23-300) U/L Venous Blood Potassium 4.4 (3.6-5.2) mmol/L Blood Type Antibody Screen Crossmatch BBK History Checked 05/16/16 05/16/16 05/16/16 Range/Units 18:43 16:13 13:10 WBC 16.8 H (4.5-11.0) 10^3/ul RBC 3.12 L (3.5-6.1) 10^6/uL Hgb 9.1 L (14.0-18.0) gm/dL Hct 26.7 L (42.0-52.0) % MCV 85.6 (80.0-105.0) fL MCH 29.2 (25.0-35.0) pg MCHC 34.1 (31.0-37.0) g/dl RDW 16.7 H (11.5-14.5) % Plt Count 54 L (120.0-450.0) 10^3/uL MPV (7.0-11.0) fl Gran % 89.7 H (50.0-68.0) % Lymph % (Auto) 4.5 L (22.0-35.0) % [place] % (Auto) 5.5 (1.0-6.0) % Eos % (Auto) 0.1 L (1.5-5.0) % Baso % (Auto) 0.2 (0.0-3.0) % Gran # 15.09 H (1.4-6.5) Lymph # 0.8 L (1.2-3.4) [place] # 0.9 H (0.1-0.6) Eos # 0.0 (0.0-0.7) Baso # 0.04 (0.0-2.0) K/mm3 pCO2 (35-45) mm/Hg pO2 (30-55) mm/Hg HCO3 (21-28) mmol/L ABG pH (7.35-7.45) ABG Total CO2 (22-28) mmol.L ABG O2 Saturation (95-98) % ABG O2 Content (15-23) ML/dl ABG Base Excess (-2.0-3.0) mmol/L ABG Hemoglobin (11.7-17.4) g/dL ABG Carboxyhemoglobin (0.5-1.5) % POC ABG HHb (Measured) (0-5) % ABG Methemoglobin (0.0-3.0) % ABG O2 Capacity (16-24) mL/dl VBG pH (7.32-7.43) VBG pCO2 (40-60) VBG HCO3 (21-28) mmol/l VBG Total CO2 (22-28) mmol.L VBG O2 Sat (Calc) (40-65) % VBG Base Excess (0.0-2.0) mmol/L VBG Potassium (3.6-5.2) mmol/L Hgb O2 Saturation (95.0-98.0) % Sodium 129 L (132-148) mmol/L Chloride 97 L (98-107) mmol/L Glucose (75-110) mg/dl Lactate (0.7-2.1) mmol/L FiO2 % Potassium 4.1 (3.6-5.0) mmol/L Carbon Dioxide 20 L (21-33) mmol/L Anion Gap 16 (10-20) BUN 99 H (7-21) mg/dL Creatinine 4.8 H (0.5-1.4) mg/dL Est GFR ( Amer) 15 Est GFR (Non-Af Amer) 12 POC Glucose (mg/dL) 95 (65-110) mg/dL Random Glucose 86 (70-110) mg/dL Calcium 6.2 L* (8.4-10.5) mg/dL Phosphorus (2.5-4.5) mg/dL Magnesium (1.7-2.2) mg/dL Total Bilirubin 1.6 H (0.2-1.3) mg/dL AST 34 (15-59) U/L ALT 35 (7-56) U/L Alkaline Phosphatase 230 H (38-133) U/L Total Creatine Kinase 377 H (35-230) U/L CK-MB (CK-2) 10.5 H (0.0-3.6) ng/mL CK-MB (CK-2) % 2.8 (2.5-3.0) % Total Protein 6.1 (5.8-8.3) g/dL Albumin 2.3 L (3.0-4.8) g/dL Globulin 3.8 gm/dL Albumin/Globulin Ratio 0.6 L (1.1-1.8) Amylase 55 (35-125) U/L Lipase 68 (23-300) U/L Venous Blood Potassium (3.6-5.2) mmol/L Blood Type Antibody Screen Crossmatch BBK History Checked 05/16/16 05/16/16 05/14/16 Range/Units 11:22 07:34 16:20 WBC (4.5-11.0) 10^3/ul RBC (3.5-6.1) 10^6/uL Hgb (14.0-18.0) gm/dL Hct (42.0-52.0) % MCV (80.0-105.0) fL MCH (25.0-35.0) pg MCHC (31.0-37.0) g/dl RDW (11.5-14.5) % Plt Count (120.0-450.0) 10^3/uL MPV (7.0-11.0) fl Gran % (50.0-68.0) % Lymph % (Auto) (22.0-35.0) % [place] % (Auto) (1.0-6.0) % Eos % (Auto) (1.5-5.0) % Baso % (Auto) (0.0-3.0) % Gran # (1.4-6.5) Lymph # (1.2-3.4) [place] # (0.1-0.6) Eos # (0.0-0.7) Baso # (0.0-2.0) K/mm3 pCO2 (35-45) mm/Hg pO2 (30-55) mm/Hg HCO3 (21-28) mmol/L ABG pH (7.35-7.45) ABG Total CO2 (22-28) mmol.L ABG O2 Saturation (95-98) % ABG O2 Content (15-23) ML/dl ABG Base Excess (-2.0-3.0) mmol/L ABG Hemoglobin (11.7-17.4) g/dL ABG Carboxyhemoglobin (0.5-1.5) % POC ABG HHb (Measured) (0-5) % ABG Methemoglobin (0.0-3.0) % ABG O2 Capacity (16-24) mL/dl VBG pH (7.32-7.43) VBG pCO2 (40-60) VBG HCO3 (21-28) mmol/l VBG Total CO2 (22-28) mmol.L VBG O2 Sat (Calc) (40-65) % VBG Base Excess (0.0-2.0) mmol/L VBG Potassium (3.6-5.2) mmol/L Hgb O2 Saturation (95.0-98.0) % Sodium (132-148) mmol/L Chloride (98-107) mmol/L Glucose (75-110) mg/dl Lactate (0.7-2.1) mmol/L FiO2 % Potassium (3.6-5.0) mmol/L Carbon Dioxide (21-33) mmol/L Anion Gap (10-20) BUN (7-21) mg/dL Creatinine (0.5-1.4) mg/dL Est GFR ( Amer) Est GFR (Non-Af Amer) POC Glucose (mg/dL) 117 H 117 H (65-110) mg/dL Random Glucose (70-110) mg/dL Calcium (8.4-10.5) mg/dL Phosphorus (2.5-4.5) mg/dL Magnesium (1.7-2.2) mg/dL Total Bilirubin (0.2-1.3) mg/dL AST (15-59) U/L ALT (7-56) U/L Alkaline Phosphatase (38-133) U/L Total Creatine Kinase (35-230) U/L CK-MB (CK-2) (0.0-3.6) ng/mL CK-MB (CK-2) % (2.5-3.0) % Total Protein (5.8-8.3) g/dL Albumin (3.0-4.8) g/dL Globulin gm/dL Albumin/Globulin Ratio (1.1-1.8) Amylase (35-125) U/L Lipase (23-300) U/L Venous Blood Potassium (3.6-5.2) mmol/L Blood Type A POSITIVE Antibody Screen Negative Crossmatch See Detail BBK History Checked Patient has bt Laboratory Results - last 24 hr 05/14/16 05/16/16 05/16/16 16:20 07:34 11:22 WBC RBC Hgb Hct MCV MCH MCHC RDW Plt Count MPV Gran % Lymph % (Auto) [place] % (Auto) Eos % (Auto) Baso % (Auto) Gran # Lymph # [place] # Eos # Baso # pCO2 pO2 HCO3 ABG pH ABG Total CO2 ABG O2 Saturation ABG O2 Content ABG Base Excess ABG Hemoglobin ABG Carboxyhemoglobin POC ABG HHb (Measured) ABG Methemoglobin ABG O2 Capacity VBG pH VBG pCO2 VBG HCO3 VBG Total CO2 VBG O2 Sat (Calc) VBG Base Excess VBG Potassium Hgb O2 Saturation Glucose Lactate FiO2 Sodium Potassium Chloride Carbon Dioxide Anion Gap BUN Creatinine Est GFR ( Amer) Est GFR (Non-Af Amer) POC Glucose (mg/dL) 117 H 117 H Random Glucose Calcium Phosphorus Magnesium Total Bilirubin AST ALT Alkaline Phosphatase Total Creatine Kinase CK-MB (CK-2) CK-MB (CK-2) % Total Protein Albumin Globulin Albumin/Globulin Ratio Amylase Lipase Venous Blood Potassium Blood Type A POSITIVE Antibody Screen Negative Crossmatch See Detail BBK History Checked Patient has bt 05/16/16 05/16/16 05/16/16 13:10 16:13 18:43 WBC 16.8 H RBC 3.12 L Hgb 9.1 L Hct 26.7 L MCV 85.6 MCH 29.2 MCHC 34.1 RDW 16.7 H Plt Count 54 L MPV Gran % 89.7 H Lymph % (Auto) 4.5 L [place] % (Auto) 5.5 Eos % (Auto) 0.1 L Baso % (Auto) 0.2 Gran # 15.09 H Lymph # 0.8 L [place] # 0.9 H Eos # 0.0 Baso # 0.04 pCO2 pO2 HCO3 ABG pH ABG Total CO2 ABG O2 Saturation ABG O2 Content ABG Base Excess ABG Hemoglobin ABG Carboxyhemoglobin POC ABG HHb (Measured) ABG Methemoglobin ABG O2 Capacity VBG pH VBG pCO2 VBG HCO3 VBG Total CO2 VBG O2 Sat (Calc) VBG Base Excess VBG Potassium Hgb O2 Saturation Glucose Lactate FiO2 Sodium 129 L Potassium 4.1 Chloride 97 L Carbon Dioxide 20 L Anion Gap 16 BUN 99 H Creatinine 4.8 H Est GFR ( Amer) 15 Est GFR (Non-Af Amer) 12 POC Glucose (mg/dL) 95 Random Glucose 86 Calcium 6.2 L* Phosphorus Magnesium Total Bilirubin 1.6 H AST 34 ALT 35 Alkaline Phosphatase 230 H Total Creatine Kinase 377 H CK-MB (CK-2) 10.5 H CK-MB (CK-2) % 2.8 Total Protein 6.1 Albumin 2.3 L Globulin 3.8 Albumin/Globulin Ratio 0.6 L Amylase 55 Lipase 68 Venous Blood Potassium Blood Type Antibody Screen Crossmatch BBK History Checked 05/17/16 05/17/16 05/17/16 06:00 06:08 06:40 WBC 16.6 H RBC 2.96 L Hgb 8.5 L Hct 25.1 L MCV 84.8 MCH 28.7 MCHC 33.9 RDW 16.8 H Plt Count 56 L MPV 11.2 H Gran % Lymph % (Auto) [place] % (Auto) Eos % (Auto) Baso % (Auto) Gran # Lymph # [place] # Eos # Baso # pCO2 33 L pO2 80.0 61 H HCO3 15.2 L ABG pH 7.27 L ABG Total CO2 16.2 L ABG O2 Saturation 97.9 ABG O2 Content 8.8 L ABG Base Excess -10.7 L ABG Hemoglobin 6.5 L ABG Carboxyhemoglobin 2.2 H POC ABG HHb (Measured) 2.0 ABG Methemoglobin 0.8 ABG O2 Capacity 9.0 L VBG pH 7.26 L VBG pCO2 42.0 VBG HCO3 18.8 L VBG Total CO2 20.1 L VBG O2 Sat (Calc) 93.5 H VBG Base Excess -7.9 L VBG Potassium 4.4 Hgb O2 Saturation 95.1 Glucose 105 Lactate 1.5 FiO2 60.0 21.0 Sodium 132 131.0 L Potassium 4.4 Chloride 96 L 102.0 Carbon Dioxide 21 Anion Gap 19 BUN 108 H Creatinine 5.4 H Est GFR ( Amer) 13 Est GFR (Non-Af Amer) 11 POC Glucose (mg/dL) Random Glucose 101 Calcium 5.2 L* Phosphorus 10.5 H Magnesium 1.8 Total Bilirubin 0.9 AST 32 ALT 29 Alkaline Phosphatase 204 H Total Creatine Kinase CK-MB (CK-2) CK-MB (CK-2) % Total Protein 6.1 Albumin 2.2 L Globulin 3.8 Albumin/Globulin Ratio 0.6 L Amylase Lipase Venous Blood Potassium 4.4 Blood Type Antibody Screen Crossmatch BBK History Checked Fingerstick Blood Sugar Results: 102 Review of Systems - Review of Systems Systems not reviewed;Unavailable: Intubated Critical Care Progress Note - Ventilator Checklist Head of Bed 30 Degrees: Yes Daily Sedation Vacation: Yes PUD Prophalyxis: Yes DVT Prophylaxis: Yes - Nutrition Nutrition: Nutrition Category Date Time Status NPO Diet [DIET] Diets 05/15/16 Breakfast Ordered Assessment/Plan - Assessment and Plan (Free Text) Assessment: 65 y/o M with PMH of Pancreatic Cancer, Bladder Cancer, HTN, and DM in the ICU with Ventilator dependent hypoxic respiratory failure 2/2 severe sepsis 2/2 SBP, bacteremia. Repeat blood cultures are negative. Worsening kidney function with BUN 126->134->149->108 and Cr 4.4->5.6->6.5->5.4 Plan: Neuro: - AAOx0 , unarouasble - Intubated - Head CT (05/07/16) shows right frontoparietal encephalomalacia. Acute on chronic infarction cannot be excluded. - Propfol drip - Ativan PRN Cardio: - On Levophed 6mcg - Keep MAP >65 - Initial Echocardiogram shows normal EF with no vegetations - Cardiology following Pulm: - Vent Intubated: 60% /07/15/400 - Continue to keep O2 sat >90% PaO2 60%, peak <30 - Pulmonology, Dr. Lino following -Nebulizer -Aspiration precaution -Possible Trach by surgery tenatively planned on Saturday GI: - s/p Paracentesis: 8L out - significant for SBP - ascites fluid culture is negative after 24 hours - C. diff antigen positive - Protonix drip for upper GI bleed: Possibly change to IV for risk of thrombocytopenia - GI following, Dr. Zavala: Unlikely PEG candidate. Nephro: - Anuric: 20cc/24hrs - Creatinine: 5.4, BUN 108 - Maintain euvolemia - Strict I's and O's - Replete electrolytes as needed - Nephrology consulted, Dr. Shahid - HD today: f/u 3pm labs ID/Heme: - Afebrile - C. diff antigen +, VRE urine cx - ABX as per ID: Merrem, Daptomycin - Surgery following for possible port removal, which is possible source of infection: Family refusing - ID consulted, Dr. Erickson - Maintain normothermia - Continue to transfuse to keep Hg above 7 -Platelet 56 today: Transfuse 1bag platelet. Transfused 2 bag yesterday: SubQ heparin held for possible HIT Endo: - Insulin sliding scale - Check glucose levels q6h - Maintain euglycemia Dispo: prognosis guarded: f/u Palliative Seen, reviewed, and discussed with attending <Dave Conteh - Last Filed: 05/17/16 12:23> CCU Objective - Vital Signs / Intake & Output Vital Signs (Last 4 hours): Vital Signs Temp Pulse BP Pulse Ox 05/17/16 12:00 98.2 F 114 H 05/17/16 11:01 114 H 97 05/17/16 11:00 114 H 98/49 L 98 05/17/16 10:43 113 H 100/51 L 98 05/17/16 10:41 115 H 98 05/17/16 10:38 115 H 98 05/17/16 10:30 116 H 108/50 L 98 05/17/16 10:23 116 H 93/42 L 98 05/17/16 10:00 116 H 97/65 L 98 05/17/16 09:37 110 H 98 05/17/16 09:34 111 H 98 05/17/16 09:30 109 H 97/62 L 98 05/17/16 09:17 107 H 98/55 L 98 05/17/16 09:00 106 H 103/62 98 05/17/16 08:53 105 H 90/51 L 98 05/17/16 08:51 105 H 88/46 L 98 05/17/16 08:34 103 H 94/49 L 97 05/17/16 08:33 103 H 87/49 L 97 05/17/16 08:31 103 H 93/51 L 97 05/17/16 08:30 102 H 86/52 L 97 05/17/16 08:20 107 H 109/54 L 97 Intake and Output (Last 8hrs): Intake & Output 05/16/16 05/17/16 05/17/16 22:59 06:59 14:59 Intake Total 1428 520 Output Total 1003 520 Balance 425 0 Weight 274 lb Intake: IV 688 520 Right Femoral 688 520 Blood Product 640 Red Blood Cells Cpd As1 320 Lr Unit [id number] Red Blood Cells Cpd As1 320 Lr Unit [id number] Other 100 Red Blood Cells Cpd As1 50 Lr Unit [id number] Red Blood Cells Cpd As1 50 Lr Unit [id number] Output: Gastric Amount 500 500 Nares 500 500 Urine 3 20 Urethral (Beard) 3 20 Other 500 Other: Voiding Method Indwelling Catheter Indwelling Catheter # Bowel Movements 1 1 - Medications Active Medications: Active Medications Generic Name Dose Route Start Last Admin Trade Name Freq PRN Reason Stop Dose Admin Acetaminophen 650 mg 05/17/16 07:51 Tylenol 650 Mg Supp RC Q6H PRN Fever >100.4 F Albuterol/Ipratropium 3 ml 05/08/16 09:41 05/15/16 07:28 Duoneb 3 Mg/0.5 Mg (3 Ml) Ud IH 3 ml [id number] PRN Administration Shortness Of Breath Propofol 100 mls @ 3.55 mls/hr 05/15/16 05:58 05/17/16 07:23 Diprivan IV 20 mcg/kg/min .Q24H PRN Titration TITRATE PER MD ORDER Protocol 5 MCG/KG/MIN Norepinephrine Bitartrate 4 mg 254 mls @ 15.24 mls/hr 05/15/16 08:59 05/17/16 07:08 / Sodium Chloride IV 22.86 mls/hr .[id number] PRN Administration TITRATE PER MD ORDER Protocol 4 MCG/MIN Daptomycin 730 mg/ Sodium 100 mls @ 200 mls/hr 05/18/16 10:00 Chloride IV 05/28/16 10:29 Q48H [facility] Protocol Meropenem 500 mg/ Sodium 100 mls @ 100 mls/hr 05/17/16 10:00 05/17/16 10:10 Chloride IVPB 05/22/16 10:01 100 mls/hr Q12 [facility] Administration Protocol Insulin Human Lispro 0 units 04/29/16 11:30 05/17/16 11:37 Humalog Low SC Not Given ACHS [facility] Protocol Lorazepam 2 mg 05/15/16 10:54 Ativan IVP Q6H PRN Anxiety Protocol Pantoprazole Sodium 40 mg 05/17/16 14:00 Protonix Inj IVP Q12 [facility] Vancomycin HCl 125 mg 05/01/16 10:00 05/17/16 10:02 Vancocin 25 Mg/Ml (Oral Use) PO Not Given QID [facility] Protocol - Patient Studies Lab Studies: Microbiology Studies 05/15/16 10:45 Blood Culture - Preliminary Blood NO GROWTH AFTER 48 HOURS 05/15/16 10:50 Blood Culture - Preliminary Blood NO GROWTH AFTER 48 HOURS Lab Studies 05/17/16 05/17/16 05/17/16 Range/Units 06:40 06:08 06:00 WBC 16.6 H (4.5-11.0) 10^3/ul RBC 2.96 L (3.5-6.1) 10^6/uL Hgb 8.5 L (14.0-18.0) gm/dL Hct 25.1 L (42.0-52.0) % MCV 84.8 (80.0-105.0) fL MCH 28.7 (25.0-35.0) pg MCHC 33.9 (31.0-37.0) g/dl RDW 16.8 H (11.5-14.5) % Plt Count 56 L (120.0-450.0) 10^3/uL MPV 11.2 H (7.0-11.0) fl Gran % (50.0-68.0) % Lymph % (Auto) (22.0-35.0) % [place] % (Auto) (1.0-6.0) % Eos % (Auto) (1.5-5.0) % Baso % (Auto) (0.0-3.0) % Gran # (1.4-6.5) Lymph # (1.2-3.4) [place] # (0.1-0.6) Eos # (0.0-0.7) Baso # (0.0-2.0) K/mm3 pCO2 33 L (35-45) mm/Hg pO2 61 H 80.0 (30-55) mm/Hg HCO3 15.2 L (21-28) mmol/L ABG pH 7.27 L (7.35-7.45) ABG Total CO2 16.2 L (22-28) mmol.L ABG O2 Saturation 97.9 (95-98) % ABG O2 Content 8.8 L (15-23) ML/dl ABG Base Excess -10.7 L (-2.0-3.0) mmol/L ABG Hemoglobin 6.5 L (11.7-17.4) g/dL ABG Carboxyhemoglobin 2.2 H (0.5-1.5) % POC ABG HHb (Measured) 2.0 (0-5) % ABG Methemoglobin 0.8 (0.0-3.0) % ABG O2 Capacity 9.0 L (16-24) mL/dl VBG pH 7.26 L (7.32-7.43) VBG pCO2 42.0 (40-60) VBG HCO3 18.8 L (21-28) mmol/l VBG Total CO2 20.1 L (22-28) mmol.L VBG O2 Sat (Calc) 93.5 H (40-65) % VBG Base Excess -7.9 L (0.0-2.0) mmol/L VBG Potassium 4.4 (3.6-5.2) mmol/L Hgb O2 Saturation 95.1 (95.0-98.0) % Sodium 131.0 L 132 (132-148) mmol/L Chloride 102.0 96 L (98-107) mmol/L Glucose 105 (75-110) mg/dl Lactate 1.5 (0.7-2.1) mmol/L FiO2 21.0 60.0 % Potassium 4.4 (3.6-5.0) mmol/L Carbon Dioxide 21 (21-33) mmol/L Anion Gap 19 (10-20) BUN 108 H (7-21) mg/dL Creatinine 5.4 H (0.5-1.4) mg/dL Est GFR ( Amer) 13 Est GFR (Non-Af Amer) 11 POC Glucose (mg/dL) (65-110) mg/dL Random Glucose 101 (70-110) mg/dL Calcium 5.2 L* (8.4-10.5) mg/dL Phosphorus 10.5 H (2.5-4.5) mg/dL Magnesium 1.8 (1.7-2.2) mg/dL Total Bilirubin 0.9 (0.2-1.3) mg/dL AST 32 (15-59) U/L ALT 29 (7-56) U/L Alkaline Phosphatase 204 H (38-133) U/L Total Creatine Kinase (35-230) U/L CK-MB (CK-2) (0.0-3.6) ng/mL CK-MB (CK-2) % (2.5-3.0) % Total Protein 6.1 (5.8-8.3) g/dL Albumin 2.2 L (3.0-4.8) g/dL Globulin 3.8 gm/dL Albumin/Globulin Ratio 0.6 L (1.1-1.8) Amylase (35-125) U/L Lipase (23-300) U/L Venous Blood Potassium 4.4 (3.6-5.2) mmol/L Blood Type Antibody Screen Crossmatch BBK History Checked 05/16/16 05/16/16 05/16/16 Range/Units 18:43 16:13 13:10 WBC 16.8 H (4.5-11.0) 10^3/ul RBC 3.12 L (3.5-6.1) 10^6/uL Hgb 9.1 L (14.0-18.0) gm/dL Hct 26.7 L (42.0-52.0) % MCV 85.6 (80.0-105.0) fL MCH 29.2 (25.0-35.0) pg MCHC 34.1 (31.0-37.0) g/dl RDW 16.7 H (11.5-14.5) % Plt Count 54 L (120.0-450.0) 10^3/uL MPV (7.0-11.0) fl Gran % 89.7 H (50.0-68.0) % Lymph % (Auto) 4.5 L (22.0-35.0) % [place] % (Auto) 5.5 (1.0-6.0) % Eos % (Auto) 0.1 L (1.5-5.0) % Baso % (Auto) 0.2 (0.0-3.0) % Gran # 15.09 H (1.4-6.5) Lymph # 0.8 L (1.2-3.4) [place] # 0.9 H (0.1-0.6) Eos # 0.0 (0.0-0.7) Baso # 0.04 (0.0-2.0) K/mm3 pCO2 (35-45) mm/Hg pO2 (30-55) mm/Hg HCO3 (21-28) mmol/L ABG pH (7.35-7.45) ABG Total CO2 (22-28) mmol.L ABG O2 Saturation (95-98) % ABG O2 Content (15-23) ML/dl ABG Base Excess (-2.0-3.0) mmol/L ABG Hemoglobin (11.7-17.4) g/dL ABG Carboxyhemoglobin (0.5-1.5) % POC ABG HHb (Measured) (0-5) % ABG Methemoglobin (0.0-3.0) % ABG O2 Capacity (16-24) mL/dl VBG pH (7.32-7.43) VBG pCO2 (40-60) VBG HCO3 (21-28) mmol/l VBG Total CO2 (22-28) mmol.L VBG O2 Sat (Calc) (40-65) % VBG Base Excess (0.0-2.0) mmol/L VBG Potassium (3.6-5.2) mmol/L Hgb O2 Saturation (95.0-98.0) % Sodium 129 L (132-148) mmol/L Chloride 97 L (98-107) mmol/L Glucose (75-110) mg/dl Lactate (0.7-2.1) mmol/L FiO2 % Potassium 4.1 (3.6-5.0) mmol/L Carbon Dioxide 20 L (21-33) mmol/L Anion Gap 16 (10-20) BUN 99 H (7-21) mg/dL Creatinine 4.8 H (0.5-1.4) mg/dL Est GFR ( Amer) 15 Est GFR (Non-Af Amer) 12 POC Glucose (mg/dL) 95 (65-110) mg/dL Random Glucose 86 (70-110) mg/dL Calcium 6.2 L* (8.4-10.5) mg/dL Phosphorus (2.5-4.5) mg/dL Magnesium (1.7-2.2) mg/dL Total Bilirubin 1.6 H (0.2-1.3) mg/dL AST 34 (15-59) U/L ALT 35 (7-56) U/L Alkaline Phosphatase 230 H (38-133) U/L Total Creatine Kinase 377 H (35-230) U/L CK-MB (CK-2) 10.5 H (0.0-3.6) ng/mL CK-MB (CK-2) % 2.8 (2.5-3.0) % Total Protein 6.1 (5.8-8.3) g/dL Albumin 2.3 L (3.0-4.8) g/dL Globulin 3.8 gm/dL Albumin/Globulin Ratio 0.6 L (1.1-1.8) Amylase 55 (35-125) U/L Lipase 68 (23-300) U/L Venous Blood Potassium (3.6-5.2) mmol/L Blood Type Antibody Screen Crossmatch BBK History Checked 05/16/16 05/16/16 05/14/16 Range/Units 11:22 07:34 16:20 WBC (4.5-11.0) 10^3/ul RBC (3.5-6.1) 10^6/uL Hgb (14.0-18.0) gm/dL Hct (42.0-52.0) % MCV (80.0-105.0) fL MCH (25.0-35.0) pg MCHC (31.0-37.0) g/dl RDW (11.5-14.5) % Plt Count (120.0-450.0) 10^3/uL MPV (7.0-11.0) fl Gran % (50.0-68.0) % Lymph % (Auto) (22.0-35.0) % [place] % (Auto) (1.0-6.0) % Eos % (Auto) (1.5-5.0) % Baso % (Auto) (0.0-3.0) % Gran # (1.4-6.5) Lymph # (1.2-3.4) [place] # (0.1-0.6) Eos # (0.0-0.7) Baso # (0.0-2.0) K/mm3 pCO2 (35-45) mm/Hg pO2 (30-55) mm/Hg HCO3 (21-28) mmol/L ABG pH (7.35-7.45) ABG Total CO2 (22-28) mmol.L ABG O2 Saturation (95-98) % ABG O2 Content (15-23) ML/dl ABG Base Excess (-2.0-3.0) mmol/L ABG Hemoglobin (11.7-17.4) g/dL ABG Carboxyhemoglobin (0.5-1.5) % POC ABG HHb (Measured) (0-5) % ABG Methemoglobin (0.0-3.0) % ABG O2 Capacity (16-24) mL/dl VBG pH (7.32-7.43) VBG pCO2 (40-60) VBG HCO3 (21-28) mmol/l VBG Total CO2 (22-28) mmol.L VBG O2 Sat (Calc) (40-65) % VBG Base Excess (0.0-2.0) mmol/L VBG Potassium (3.6-5.2) mmol/L Hgb O2 Saturation (95.0-98.0) % Sodium (132-148) mmol/L Chloride (98-107) mmol/L Glucose (75-110) mg/dl Lactate (0.7-2.1) mmol/L FiO2 % Potassium (3.6-5.0) mmol/L Carbon Dioxide (21-33) mmol/L Anion Gap (10-20) BUN (7-21) mg/dL Creatinine (0.5-1.4) mg/dL Est GFR ( Amer) Est GFR (Non-Af Amer) POC Glucose (mg/dL) 117 H 117 H (65-110) mg/dL Random Glucose (70-110) mg/dL Calcium (8.4-10.5) mg/dL Phosphorus (2.5-4.5) mg/dL Magnesium (1.7-2.2) mg/dL Total Bilirubin (0.2-1.3) mg/dL AST (15-59) U/L ALT (7-56) U/L Alkaline Phosphatase (38-133) U/L Total Creatine Kinase (35-230) U/L CK-MB (CK-2) (0.0-3.6) ng/mL CK-MB (CK-2) % (2.5-3.0) % Total Protein (5.8-8.3) g/dL Albumin (3.0-4.8) g/dL Globulin gm/dL Albumin/Globulin Ratio (1.1-1.8) Amylase (35-125) U/L Lipase (23-300) U/L Venous Blood Potassium (3.6-5.2) mmol/L Blood Type A POSITIVE Antibody Screen Negative Crossmatch See Detail BBK History Checked Patient has bt Laboratory Results - last 24 hr 05/14/16 05/16/16 05/16/16 16:20 07:34 11:22 WBC RBC Hgb Hct MCV MCH MCHC RDW Plt Count MPV Gran % Lymph % (Auto) [place] % (Auto) Eos % (Auto) Baso % (Auto) Gran # Lymph # [place] # Eos # Baso # pCO2 pO2 HCO3 ABG pH ABG Total CO2 ABG O2 Saturation ABG O2 Content ABG Base Excess ABG Hemoglobin ABG Carboxyhemoglobin POC ABG HHb (Measured) ABG Methemoglobin ABG O2 Capacity VBG pH VBG pCO2 VBG HCO3 VBG Total CO2 VBG O2 Sat (Calc) VBG Base Excess VBG Potassium Hgb O2 Saturation Glucose Lactate FiO2 Sodium Potassium Chloride Carbon Dioxide Anion Gap BUN Creatinine Est GFR ( Amer) Est GFR (Non-Af Amer) POC Glucose (mg/dL) 117 H 117 H Random Glucose Calcium Phosphorus Magnesium Total Bilirubin AST ALT Alkaline Phosphatase Total Creatine Kinase CK-MB (CK-2) CK-MB (CK-2) % Total Protein Albumin Globulin Albumin/Globulin Ratio Amylase Lipase Venous Blood Potassium Blood Type A POSITIVE Antibody Screen Negative Crossmatch See Detail BBK History Checked Patient has bt 05/16/16 05/16/16 05/16/16 13:10 16:13 18:43 WBC 16.8 H RBC 3.12 L Hgb 9.1 L Hct 26.7 L MCV 85.6 MCH 29.2 MCHC 34.1 RDW 16.7 H Plt Count 54 L MPV Gran % 89.7 H Lymph % (Auto) 4.5 L [place] % (Auto) 5.5 Eos % (Auto) 0.1 L Baso % (Auto) 0.2 Gran # 15.09 H Lymph # 0.8 L [place] # 0.9 H Eos # 0.0 Baso # 0.04 pCO2 pO2 HCO3 ABG pH ABG Total CO2 ABG O2 Saturation ABG O2 Content ABG Base Excess ABG Hemoglobin ABG Carboxyhemoglobin POC ABG HHb (Measured) ABG Methemoglobin ABG O2 Capacity VBG pH VBG pCO2 VBG HCO3 VBG Total CO2 VBG O2 Sat (Calc) VBG Base Excess VBG Potassium Hgb O2 Saturation Glucose Lactate FiO2 Sodium 129 L Potassium 4.1 Chloride 97 L Carbon Dioxide 20 L Anion Gap 16 BUN 99 H Creatinine 4.8 H Est GFR ( Amer) 15 Est GFR (Non-Af Amer) 12 POC Glucose (mg/dL) 95 Random Glucose 86 Calcium 6.2 L* Phosphorus Magnesium Total Bilirubin 1.6 H AST 34 ALT 35 Alkaline Phosphatase 230 H Total Creatine Kinase 377 H CK-MB (CK-2) 10.5 H CK-MB (CK-2) % 2.8 Total Protein 6.1 Albumin 2.3 L Globulin 3.8 Albumin/Globulin Ratio 0.6 L Amylase 55 Lipase 68 Venous Blood Potassium Blood Type Antibody Screen Crossmatch BBK History Checked 05/17/16 05/17/16 05/17/16 06:00 06:08 06:40 WBC 16.6 H RBC 2.96 L Hgb 8.5 L Hct 25.1 L MCV 84.8 MCH 28.7 MCHC 33.9 RDW 16.8 H Plt Count 56 L MPV 11.2 H Gran % Lymph % (Auto) [place] % (Auto) Eos % (Auto) Baso % (Auto) Gran # Lymph # [place] # Eos # Baso # pCO2 33 L pO2 80.0 61 H HCO3 15.2 L ABG pH 7.27 L ABG Total CO2 16.2 L ABG O2 Saturation 97.9 ABG O2 Content 8.8 L ABG Base Excess -10.7 L ABG Hemoglobin 6.5 L ABG Carboxyhemoglobin 2.2 H POC ABG HHb (Measured) 2.0 ABG Methemoglobin 0.8 ABG O2 Capacity 9.0 L VBG pH 7.26 L VBG pCO2 42.0 VBG HCO3 18.8 L VBG Total CO2 20.1 L VBG O2 Sat (Calc) 93.5 H VBG Base Excess -7.9 L VBG Potassium 4.4 Hgb O2 Saturation 95.1 Glucose 105 Lactate 1.5 FiO2 60.0 21.0 Sodium 132 131.0 L Potassium 4.4 Chloride 96 L 102.0 Carbon Dioxide 21 Anion Gap 19 BUN 108 H Creatinine 5.4 H Est GFR ( Amer) 13 Est GFR (Non-Af Amer) 11 POC Glucose (mg/dL) Random Glucose 101 Calcium 5.2 L* Phosphorus 10.5 H Magnesium 1.8 Total Bilirubin 0.9 AST 32 ALT 29 Alkaline Phosphatase 204 H Total Creatine Kinase CK-MB (CK-2) CK-MB (CK-2) % Total Protein 6.1 Albumin 2.2 L Globulin 3.8 Albumin/Globulin Ratio 0.6 L Amylase Lipase Venous Blood Potassium 4.4 Blood Type Antibody Screen Crossmatch BBK History Checked Critical Care Progress Note - Nutrition Nutrition: Nutrition Category Date Time Status NPO Diet [DIET] Diets 05/15/16 Breakfast Ordered Attending/Attestation - Attestation I have personally seen and examined this patient.: Yes I have fully participated in the care of the patient.: Yes I have reviewed all pertinent clinical information: Yes Notes (Text): 05/17/16 12:20 The patient was seen and examined at the bedside. Patient care was discussed with resident Medical records, lab studies, and imaging were reviewed and management issues were discussed and formulated. Last 24H events reviewed. Agree with above treatment plans as outlined in 's note with addition of the following -hemodynamic monitoring and vasopressor support to maintain MAP>65; continue levophed -mechanical ventilation and o2 supplementation to maintain Spo2 >90 Pao2>60 -monitor for TV 6ml\kg IBW and plateau pressure <30 -ABG in AM reviewed -continue nebs -pt might benefit from tracheostomy \peg placement by surgical team after failing multiple extubation\weaning attempts -repeat CXR reviewed -continue broad spectrum Abx as per ID team ; f\u cultures -f\u Bun\Cr and U\o; HD as per renal team -f\u serial CBC; hematology f\u -NPO as coffee ground from NGT noted this AM -PPI drip started and GI eval called -continue aspiration precautions -family refused chemoport removal as per surgical team -IR team f\u for possible paracentesis -f\u serial H\H; s\p 2 PRBC yesterday -transfuse platelets -DVT \ PUD prophylaxis -Prognosis remains grave. Palliation team following. Pt's is considering possible Hospice Care option CCM time 44min
[2016-05-17] MEDS ORDERED: Pantoprazole 40mg/100ml IVPB 100 ML IVPB SCH ×2 (09:45→10:00)
[2016-05-17] MEDS: Vancomycin 25 MG/ML PO SCH ×2 (10:02→14:26)
[2016-05-17] MEDS: Meropenem 500 MG in Sodium Chloride 0.9% 100 ML IVPB SCH ×2 (10:10→22:13)
--- NOTE | 2016-05-17 10:57 | CP.PCM.PN ---
<Kristian Jeffrey - Last Filed: 05/17/16 12:36> Subjective - Date & Time of Evaluation Date of Evaluation: 05/17/16 Time of Evaluation: 10:56 - Subjective Subjective: PGY4 GI Fellow Progress Note Patient seen and examined bedside this morning. Our service was reconsulted as there is concern for upper GI bleeding with dark black output to the patient's NG tube. Moreover, we have been asked to evaluate the patient for PEG placement. Currently, the patient is intubated and sedated. With the exception of the development of dark output via NGT, there have been no events overnight. Patient has been started on hemodialysis since we have last evaluated. 12 system ROS cannot be performed given current condition. Objective - Vital Signs/Intake and Output Vital Signs (last 24 hours): Temp Pulse Resp BP Pulse Ox 100.5 F H 111 H 24 97/62 L 98 05/17/16 08:00 05/17/16 09:34 05/16/16 15:46 05/17/16 09:30 05/17/16 09:34 Intake and Output: 05/17/16 05/17/16 06:59 18:59 Intake Total 520 Output Total 520 Balance 0 - Medications Medications: Current Medications Acetaminophen (Tylenol 650 Mg Supp) 650 mg RC Q6H PRN PRN Reason: Fever >100.4 F Albuterol/Ipratropium (Duoneb 3 Mg/0.5 Mg (3 Ml) Ud) 3 ml IH [id number] PRN PRN Reason: Shortness Of Breath Last Admin: 05/15/16 07:28 Dose: 3 ml Propofol (Diprivan) 100 mls @ 3.55 mls/hr IV .Q24H PRN; Protocol; 5 MCG/KG/MIN PRN Reason: TITRATE PER MD ORDER Last Titration: 05/17/16 07:23 Dose: 20 mcg/kg/min Norepinephrine Bitartrate 4 mg (/ Sodium Chloride) 254 mls @ 15.24 mls/hr IV .[id number] PRN; Protocol; 4 MCG/MIN PRN Reason: TITRATE PER MD ORDER Last Admin: 05/17/16 07:08 Dose: 22.86 mls/hr Daptomycin 730 mg/ Sodium (Chloride) 100 mls @ 200 mls/hr IV Q48H WIL PRN Reason: Protocol Stop: 05/28/16 10:29 Meropenem 500 mg/ Sodium (Chloride) 100 mls @ 100 mls/hr IVPB Q12 WIL PRN Reason: Protocol Stop: 05/22/16 10:01 Last Admin: 05/17/16 10:10 Dose: 100 mls/hr Pantoprazole Sodium (Protonix 40mg Ivpb) 100 mls @ 20 mls/hr IVPB .Q5H WIL Insulin Human Lispro (Humalog Low) 0 units SC ACHS WIL PRN Reason: Protocol Last Admin: 05/17/16 07:35 Dose: Not Given Lorazepam (Ativan) 2 mg IVP Q6H PRN; Protocol PRN Reason: Anxiety Vancomycin HCl (Vancocin 25 Mg/Ml (Oral Use)) 125 mg PO QID WIL PRN Reason: Protocol Last Admin: 05/17/16 10:02 Dose: Not Given - Labs Labs: 05/17/16 06:00 05/17/16 06:00 PT 11.4 Seconds (9.9-11.8) 05/08/16 08:30 INR 1.06 (0.93-1.08) 05/08/16 08:30 APTT 40.4 Seconds (23.7-30.8) H 05/13/16 06:00 - Constitutional Appears: Chronically Ill, Other (sedated, intubated) - Eye Exam Eye Exam: PERRL - ENT Exam ENT Exam: Mucous Membranes Dry Additional comments: NGT in place - Respiratory Exam Respiratory Exam: Rales, Rhonchi. absent: Wheezes - Cardiovascular Exam Cardiovascular Exam: Tachycardia, +S1, +S2 - GI/Abdominal Exam GI & Abdominal Exam: Soft, Normal Bowel Sounds. absent: Distended, Firm, Guarding, Rigid, Tenderness, Organomegaly - Extremities Exam Additional comments: B/L LE edema - Skin Skin Exam: Dry, Warm Assessment and Plan - Assessment and Plan (Free Text) Assessment: 65 year old male with history of pancreatic cancer, bladder cancer, HTN, DM who was originally admitted with ADILENE, pyelonephritis, sepsis, C. diff. GI reconsulted for concern of upper GI bleed and evaluation for PEG placement -Pancreatic and bladder cancer -Spontaneous bacterial peritonitis -Recurrent ascites s/p paracentesis -Anemia and thrombocytopenia -End-stage renal disease, now on HD -VRE UTI -C diff diarrhea, resolved -HTN -DM Plan: -Flushed and aspirated NGT with water and was able to clear output of any obvious blood; will continue to monitor but no plan for EGD at this time -On Protonix gtt at present; caution as this can contribute to thrombocytopenia - would D/C gtt and change to IV BID -Patient remains on ventilatory support, sedated with propofol, have been unable to wean -Discussion for tracheostomy placement pending -Now on HD, nephrology following -The patient is very high risk for PEG placement and has multiple contraindications to the insertion of a PEG at this time; sepsis, peritonitis, recurrent ascites and thrombocytopenia -Would recommend clarification of goals of care with family and discussion with hospice/palliative care -Patient's prognosis is grim given his two malignancies, ongoing sepsis and general deconditioning <Law Zavala - Last Filed: 05/17/16 13:33> Objective - Vital Signs/Intake and Output Vital Signs (last 24 hours): Temp Pulse Resp BP Pulse Ox 98.2 F 114 H 24 98/49 L 97 05/17/16 12:00 05/17/16 12:00 05/16/16 15:46 05/17/16 11:00 05/17/16 11:01 Intake and Output: 05/17/16 05/17/16 06:59 18:59 Intake Total 520 Output Total 520 Balance 0 - Medications Medications: Current Medications Acetaminophen (Tylenol 650 Mg Supp) 650 mg RC Q6H PRN PRN Reason: Fever >100.4 F Albuterol/Ipratropium (Duoneb 3 Mg/0.5 Mg (3 Ml) Ud) 3 ml IH [id number] PRN PRN Reason: Shortness Of Breath Last Admin: 05/15/16 07:28 Dose: 3 ml Propofol (Diprivan) 100 mls @ 3.55 mls/hr IV .Q24H PRN; Protocol; 5 MCG/KG/MIN PRN Reason: TITRATE PER MD ORDER Last Titration: 05/17/16 07:23 Dose: 20 mcg/kg/min Norepinephrine Bitartrate 4 mg (/ Sodium Chloride) 254 mls @ 15.24 mls/hr IV .[id number] PRN; Protocol; 4 MCG/MIN PRN Reason: TITRATE PER MD ORDER Last Admin: 05/17/16 07:08 Dose: 22.86 mls/hr Daptomycin 730 mg/ Sodium (Chloride) 100 mls @ 200 mls/hr IV Q48H WIL PRN Reason: Protocol Stop: 05/28/16 10:29 Meropenem 500 mg/ Sodium (Chloride) 100 mls @ 100 mls/hr IVPB Q12 WIL PRN Reason: Protocol Stop: 05/22/16 10:01 Last Admin: 05/17/16 10:10 Dose: 100 mls/hr Insulin Human Lispro (Humalog Low) 0 units SC ACHS WIL PRN Reason: Protocol Last Admin: 05/17/16 11:37 Dose: Not Given Lorazepam (Ativan) 2 mg IVP Q6H PRN; Protocol PRN Reason: Anxiety Pantoprazole Sodium (Protonix Inj) 40 mg IVP Q12 WIL Vancomycin HCl (Vancocin 25 Mg/Ml (Oral Use)) 125 mg PO QID WIL PRN Reason: Protocol Last Admin: 05/17/16 10:02 Dose: Not Given - Labs Labs: 05/17/16 06:00 05/17/16 06:00 PT 11.4 Seconds (9.9-11.8) 05/08/16 08:30 INR 1.06 (0.93-1.08) 05/08/16 08:30 APTT 40.4 Seconds (23.7-30.8) H 05/13/16 06:00 Attending/Attestation - Attestation I have personally seen and examined this patient.: Yes I have fully participated in the care of the patient.: Yes I have reviewed all pertinent clinical information, including history, physical exam and plan: Yes Notes (Text): 05/17/16 13:29 65 year old male with h/o pancreatic cancer, bladder cancer, HTN, DM who was originally admitted with ADILENE, pyelonephritis, sepsis, C. diff. Now with recurrent respiratory and renal failure. On vent. On dialysis. 1. Ascites 2. SBP 3. Pancreatic cancer 4. Anemia Plan: -continue antibiotics per ICU -supportive care per ICU -vent dependent respiratory failure -now on hemodialysis for renal failure -remains criticially ill -required transfusion for anemia -dark NG output, but no satish blood -no definite evidence of active GI bleeding -recommend supportive care and monitoring for further overt signs of GI hemorrhage -he is at risk due to his persistent thrombocytopenia -recommend protonix 40 mg IV BID -serial CBC and transfuse as necessary -regarding possibility of PEG placement, this would not be recommended currently. He has ascites and SBP which represent a contraindication in this situation, not to mention he is at high risk for procedural, bleeding, infectious, and anasthesia complications -would recommend enteral nutrition and support via dobhoff/NGT in the short term , which could be maintained up to 6 weeks, and if significant recovery is achieved, then PEG could be considered at that time, although that seems unlikely at this stage
--- NOTE | 2016-05-17 11:37 | CP.PCM.PN ---
Subjective - Date & Time of Evaluation Date of Evaluation: 05/17/16 Time of Evaluation: 11:00 - Subjective Subjective: Intubated,sedated, on vasopressors, being dialyzed. Objective - Vital Signs/Intake and Output Vital Signs (last 24 hours): Temp Pulse Resp BP Pulse Ox 100.5 F H 111 H 24 97/62 L 98 05/17/16 08:00 05/17/16 09:34 05/16/16 15:46 05/17/16 09:30 05/17/16 09:34 Intake and Output: 05/17/16 05/17/16 06:59 18:59 Intake Total 520 Output Total 520 Balance 0 - Medications Medications: Current Medications Acetaminophen (Tylenol 650 Mg Supp) 650 mg RC Q6H PRN PRN Reason: Fever >100.4 F Albuterol/Ipratropium (Duoneb 3 Mg/0.5 Mg (3 Ml) Ud) 3 ml IH [id number] PRN PRN Reason: Shortness Of Breath Last Admin: 05/15/16 07:28 Dose: 3 ml Propofol (Diprivan) 100 mls @ 3.55 mls/hr IV .Q24H PRN; Protocol; 5 MCG/KG/MIN PRN Reason: TITRATE PER MD ORDER Last Titration: 05/17/16 07:23 Dose: 20 mcg/kg/min Norepinephrine Bitartrate 4 mg (/ Sodium Chloride) 254 mls @ 15.24 mls/hr IV .[id number] PRN; Protocol; 4 MCG/MIN PRN Reason: TITRATE PER MD ORDER Last Admin: 05/17/16 07:08 Dose: 22.86 mls/hr Daptomycin 730 mg/ Sodium (Chloride) 100 mls @ 200 mls/hr IV Q48H WIL PRN Reason: Protocol Stop: 05/28/16 10:29 Meropenem 500 mg/ Sodium (Chloride) 100 mls @ 100 mls/hr IVPB Q12 WIL PRN Reason: Protocol Stop: 05/22/16 10:01 Last Admin: 05/17/16 10:10 Dose: 100 mls/hr Pantoprazole Sodium (Protonix 40mg Ivpb) 100 mls @ 20 mls/hr IVPB .Q5H WIL Insulin Human Lispro (Humalog Low) 0 units SC ACHS WIL PRN Reason: Protocol Last Admin: 05/17/16 07:35 Dose: Not Given Lorazepam (Ativan) 2 mg IVP Q6H PRN; Protocol PRN Reason: Anxiety Vancomycin HCl (Vancocin 25 Mg/Ml (Oral Use)) 125 mg PO QID WIL PRN Reason: Protocol Last Admin: 05/17/16 10:02 Dose: Not Given - Labs Labs: 05/17/16 06:00 05/17/16 06:00 PT 11.4 Seconds (9.9-11.8) 05/08/16 08:30 INR 1.06 (0.93-1.08) 05/08/16 08:30 APTT 40.4 Seconds (23.7-30.8) H 05/13/16 06:00 - Constitutional Appears: Chronically Ill - Eye Exam Eye Exam: Scleral icterus - ENT Exam ENT Exam: Mucous Membranes Moist - Respiratory Exam Respiratory Exam: Decreased Breath Sounds - Cardiovascular Exam Cardiovascular Exam: Tachycardia, +S1, +S2 - GI/Abdominal Exam GI & Abdominal Exam: Distended, Firm, Diminished Bowel Sounds - Exam Additional comments: anuric - Extremities Exam Additional comments: ansarca - Neurological Exam Neurological Exam: Altered - Skin Skin Exam: Dry, Pallor Assessment and Plan - Assessment and Plan (Free Text) Assessment: 65 year old male admitted with sepsis, SIRS, ADILENE, anemia, advanced pancreatic and bladder cancer, metabolic acidosis,ascites. Patient's condition continues to deteriorate despite aggressive medical interventions. His overall prognosis is poor. The patient's and I have spoken in the past about his condition and prognosis. She has been adamant about wanting to continue all aggressive treatment. Dr Dorsey spoke with via phone this morning and explained that his condition is grave. Dr Dorsey offered option for comfort care. told him she would be willing to consider. I did reach out to as well, she did not want to discuss over phone, states she will meet with me this afternoon. 3:15 PM: Patient's and friend met with myself and MEGHAN Dickerson. states she spoke with both Dr Colleen Dorsey and Dr Veronica Olivia. Both of whom explained that patient was terminally ill and that he was not candidate for any further procedures. asks that we stop dialysis as of now(today). I discussed DNR and terminal extubation. Process for terminal extubation explained. Comfort care /hospice GIP services also explained. has agreed to meet again tomorrow at noon to sign DNR and likely proceed with terminal extubnation as well. has agreed to meet with regional transfer liaison. Plan: As discussed with Dr Dorsey, Dr Shahid and Dr Conteh; Discontinue dialysis treatment. Hospice evaluation for GIP services
--- NOTE | 2016-05-17 13:05 | PN ---
DATE: 05/17/2016 SUBJECTIVE: The patient was seen in the intensive care unit. He remains intubated with an FiO2 that is still 60%. NG tube remains in place as well. Beard catheter is also in place with scant urine o utput. SCDs are also noted. The patient remains on Levophed and is being sedated with propofol. He tolerated hemodialysis well this morning. PHYSICAL EXAMINATION: VITAL SIGNS: Blood pressure is now 98/49 with a minimum blood pressure in the last 24-hour period of 86/52 and a maximum of 120/60, heart rate is 114, but has ranged from approximately 105-120 beats pe r minute, axillary temperature 98.2, but has a T-max of 101 degrees from this morning. Respiratory r ate is 24, but has ranged from approximately 23-29 breaths per minute in the last 24-hour period. Ox ygen saturation 97%, but has ranged from 97%-99% with an FiO2 of 60%. I's and O's were 2000/1520 wit h only 25 mL of urine in the last 24-hour period. The remainder of the exam is as follows: GENERAL: The patient is on the ventilator, as stated above, with an NG tube in place. He does not a ppear to be in any pain; however. HEENT: He is normocephalic without any appreciable sinus tenderness. NECK: Cannot appreciate any jugular venous distention on exam. Conjunctivae were pale, but they were anicteric. CHEST: Lungs smith were auscultated anteriorly and were clear on my exam without any rales, rhonchi or wheezing although breath sounds are quite distant. CARDIAC: Regular rate and rhythm without any rubs or gallops. There were no heaves and the PMI did not appear to be displaced laterally. ABDOMEN: Distended, but nontender. There is no rebound, guarding or rigidity that I could appreciat e. EXTREMITIES: Notable for 2+ edema in all limbs. The patient generally had anasarca. NEUROLOGIC: He was sedated on the ventilator. GENITOURINARY: Notable for the presence of a Beard catheter. LABORATORY STUDIES: As follows: White count is 16.6, H and H is 8.5/25.1 with a platelet count of 5 6,000. Venous blood gas has a pH of 7.26 with a lactic acid level of 1.5, which is within normal rausch its. Sodium is 132, potassium is 4.4, chloride is 96, bicarbonate 21, BUN/creatinine is 108/5.4 with a glucose of 101. Total protein/albumin is 6.1/2.2, such that the calcium of 5.2 corrects to 6.5, p hosphorus is 10.5, magnesium is 1.8. There is no new microbiology data to report. Chest x-ray from this morning is pending. IMPRESSION AND PLAN: The patient is a 65-year-old gentleman with type 2 diabetes mellitus that is no ninsulin dependent, hypertension, dyslipidemia, history of bladder cancer as well as pancreatic cance r for which he is on gemcitabine and Abraxane with the last dose being given 04/13 who has been deemed to be inoperable and thus unable to have a Whipple procedure. Originally admitted with dark melenot ic stool and anemia and noted to have rhabdomyolysis with hypocalcemia, lactic acidosis and acute kid shelia injury. Over this hospitalization he has had Klebseilla pneumoniae bacteremia with known Port-A- Cath and now vancomycin-resistant enterococcus in the urine. He remains in septic shock and is curre ntly being treated with Levaquin. 1. The patient's acute kidney injury has progressed to being anuric and he is status post his first hemodialysis session yesterday and repeat hemodialysis session today. There is no clinical improveme nt in the patient whatsoever. 2. I had a lengthy discussion with the patient's who continues to insist that she wants all agg ressive measures taken. In my opinion; however, there is no expectation that the patient will surviv e this hospitalization and all the medical care we are rendering is futile, which I did explain to he r during that conversation. 3. The patient's calcium is low at 5.2 and even after correcting for the hypoalbuminemia, it is only approximately 6.5. While he receives dialysis we will give him a 3 calcium dialysate to increase ca lcium. Of note, however, given the fact that his phosphorus is quite elevated, by administering exog enous calcium we run the risk of calcium precipitation in his viscera. 4. Once the patient is receiving feeds via the NG tube, we will start him on phosphorus binder such as calcium acetate 667 mg every 4 hours. This will decrease the phosphorus and thus reciprocally inc rease his calcium as well as provide additional calcium. 5. Given the fact that the patient's corrected calcium is only approximately 6.5, it may be contribu ting to his hypotension. He had diminished cardiac output and it may be reasonable to start the jad ent on a calcium gluconate infusion with D5W and 10 grams of calcium gluconate per liter at approxima tely 50 mL per hour. 6. Gastroenterology followup is appreciated and the patient is noted to have spontaneous bacterial p eritonitis as well as recurrent ascites despite recent paracentesis. There was a concern about what appeared to be coffee grounds via the patient's NG tube. His NG tube was flushed and aspirated with water and cleared of have any obvious blood. At present, there are no plans for esophagogastroduoden oscopy. He is on intravenous Protonix and I agree with GI that the patient is high risk for PEG plac ement and has several contraindications including sepsis, peritonitis, recurrent ascites and thromboc ytopenia, and I agree with them that hospice care would be most reasonable. 7. With respect to the patient's infections (spontaneous bacterial peritonitis, sepsis secondary to a genitourinary source with vancomycin-resistant enterococcus, pyelonephritis as well as severe cysti tis, he remains on meropenem with today being the 14th day and is on oral vancomycin as well. 8. For deep venous thrombosis prophylaxis in this thrombocytopenic patient, continue sequential com pression devices. 9. Since the patient has acute kidney injury, I would continue to leave his Beard catheter in place so we can monitor his urine output. 10. Continue sedation with propofol as is being done. 11. Await results of the chest x-ray to determine this degree of vascular congestion. We will decid e on a day-to-day basis when and if he receives more hemodialysis. 12. The patient is on Levophed being titrated to a mean arterial pressure of 65 mmHg. Via the chart, review of systems, past medical history, social history and family history were review ed and there are no new changes. More than 35 minutes were spent in the care of this ICU patient today. Barry Shahid MD cc: [id number] TT: 05/17/2016 13:03:57 Confirmation # [id number] Dictation # [id number] jn
--- NOTE | 2016-05-17 14:44 | CP.PCM.PN ---
Subjective - Date & Time of Evaluation Date of Evaluation: 05/17/16 Time of Evaluation: 09:15 - Subjective Subjective: Continues to be on the ventilator; overnight the patient developed fever, is this morning had fever 101 F, has mild respiratory distress, ill-appearing. Still has loose stools. Objective - Vital Signs/Intake and Output Vital Signs (last 24 hours): Temp Pulse Resp BP Pulse Ox 98.5 F 111 H 24 111/59 L 97 05/17/16 00:00 05/17/16 00:17 05/16/16 15:46 05/16/16 23:00 05/16/16 23:00 Intake and Output: 05/16/16 05/17/16 18:59 06:59 Intake Total 1428 Output Total 1003 Balance 425 - Medications Medications: Current Medications Albuterol/Ipratropium (Duoneb 3 Mg/0.5 Mg (3 Ml) Ud) 3 ml IH [id number] PRN PRN Reason: Shortness Of Breath Last Admin: 05/15/16 07:28 Dose: 3 ml Budesonide (Pulmicort Respules) 0.5 mg IH [id number] WIL Last Admin: 05/16/16 20:15 Dose: 0.5 mg Heparin Sodium (Porcine) (Heparin) 5,000 units SC Q8 WIL PRN Reason: Protocol Last Admin: 05/14/16 13:00 Dose: 5,000 units Famotidine (Pepcid 20mg/50ml Premix) 50 mls @ 100 mls/hr IVPB DAILY [facility] Last Admin: 05/16/16 09:33 Dose: 100 mls/hr Propofol (Diprivan) 100 mls @ 3.55 mls/hr IV .Q24H PRN; Protocol; 5 MCG/KG/MIN PRN Reason: TITRATE PER MD ORDER Last Admin: 05/16/16 09:51 Dose: 12.781 mls/hr Norepinephrine Bitartrate 4 mg (/ Sodium Chloride) 254 mls @ 15.24 mls/hr IV .[id number] PRN; Protocol; 4 MCG/MIN PRN Reason: TITRATE PER MD ORDER Last Admin: 05/16/16 21:14 Dose: 22.86 mls/hr Daptomycin 730 mg/ Sodium (Chloride) 100 mls @ 200 mls/hr IV Q48H WIL PRN Reason: Protocol Stop: 05/28/16 10:29 Meropenem 500 mg/ Sodium (Chloride) 100 mls @ 100 mls/hr IVPB Q12 WIL PRN Reason: Protocol Stop: 05/22/16 10:01 Insulin Human Lispro (Humalog Low) 0 units SC ACHS WIL PRN Reason: Protocol Last Admin: 05/16/16 17:16 Dose: Not Given Levalbuterol HCl (Xopenex) 1.25 mg IH TIDRESP WIL Last Admin: 05/16/16 20:15 Dose: 1.25 mg Lorazepam (Ativan) 2 mg IVP Q6H PRN; Protocol PRN Reason: Anxiety Vancomycin HCl (Vancocin 25 Mg/Ml (Oral Use)) 125 mg PO QID [facility] PRN Reason: Protocol Last Admin: 05/16/16 21:14 Dose: Not Given - Labs Labs: 05/16/16 18:43 05/16/16 18:43 PT 11.4 Seconds (9.9-11.8) 05/08/16 08:30 INR 1.06 (0.93-1.08) 05/08/16 08:30 APTT 40.4 Seconds (23.7-30.8) H 05/13/16 06:00 - Constitutional Appears: Other (intubated, sedated, in mild respiratory distress) - Head Exam Head Exam: NORMAL INSPECTION - ENT Exam Additional comments: ET tube in place - Neck Exam Neck Exam: absent: Lymphadenopathy, Meningismus - Respiratory Exam Respiratory Exam: Decreased Breath Sounds Additional comments: right anterior chest wall port site intact - Cardiovascular Exam Cardiovascular Exam: +S1, +S2 - GI/Abdominal Exam GI & Abdominal Exam: Distended, Firm, Soft. absent: Guarding, Rigid, Tenderness Assessment and Plan - Assessment and Plan (Free Text) Plan: Assessment Severe sepsis with acute renal failure and hypoxic respiratory failure ( intubated and on the ventilator again) with acute encephalopathy probably from uremia, with persistent Klebsiella pneumoniae bacteremia probably from severe cystitis and pyelonephritis, R/O port infection; also with C diff associated diarrhea, still with loose stools; has Micrococcus species in the 05/04/2016 blood cx from the port, which is probably a contaminant (1 out of 4 bottles, and it is unlike other coagulase negative staph); patient has new onset fever and need to rule out new onset sepsis, R/O fungemia acute anemia Pancreatic cancer S/P chemotherapy and radiation therapy and surgery HTN DM obesity with BMI 34 Plan continue Meropenem day 14 from first negative blood cx (04/29, 04/30, 05/01 cx are positive, now the 05/04 cx are negative in terms of the Klebsiella and the repeat on 05/09 is negative); CT Abdomen and pelvis reviewed; continue PO Vancomycin ( day 15, since the stools are still loose, will add IV Flagyl); 2D echo repeated 05/06/2016 still does not show vegetations; follow up repeat blood cx done did not show persistence of Micrococcus in the blood Ascitic fluid cultures are negative would consider removal of the port because of the persistent Klebsiella bacteremia when feasible - however, currently the patient's family is not consenting to port removal patient is now undergoing hemodialysis Patient is for evaluation again for repeat paracentesis Will continue to follow clinically Overall prognosis continues to be very poor
--- NOTE | 2016-05-17 14:44 | RAD ---
HISTORY: f/u COMPARISON: No prior. FINDINGS: LUNGS: No definite consolidation. PLEURA: Elevated right hemidiaphragm. No definite pleural effusion. This is unchanged in appearance. CARDIOVASCULAR: Normal heart size. Endotracheal tube, and the venous infusion port are noted. New nasogastric tube noted extending to upper abdomen. OSSEOUS STRUCTURES: No significant abnormalities. VISUALIZED UPPER ABDOMEN: Normal. OTHER FINDINGS: None. IMPRESSION: New nasogastric tube extending to upper abdomen. Otherwise, no significant change.
[2016-05-17] MEDS ORDERED: Gentamicin 80mg/50ml NS 50 ML IVPB SCH (14:45)
[2016-05-17] MEDS ORDERED: Micafungin 100 MG in Sodium Chloride 0.9% 100 ML IV SCH (14:45)
[2016-05-17 19:13] LABS: ADD MANUAL DIFF? NO
[2016-05-17 19:16] LABS: BASO # 0.05 K/mm3 (0.0-2.0); BASO % 0.3 % (0.0-3.0); EOS % 0.2 % (1.5-5.0); GRAN # 17.51 (1.4-6.5); GRAN % 88.8 % (50.0-68.0); LYMPH # 1.2 (1.2-3.4); LYMPH % 5.9 % (22.0-35.0); MEAN CELL VOLUME 85.2 fL (80.0-105.0); MEAN CORPUSCULAR HEMOGLOBIN 29.3 pg (25.0-35.0); MEAN CORPUSCULAR HGB CONC 34.3 g/dl (31.0-37.0); MEAN PLATELET VOLUME 10.5 fl (7.0-11.0); MONO # 0.9 (0.1-0.6); MONO % 4.8 % (1.0-6.0); PLATELET COUNT 78 10^3/uL (120.0-450.0); WHITE BLOOD COUNT 19.7 10^3/ul (4.5-11.0)
[2016-05-17] MEDS: metroNIDAZOLE IV 500 mg/100 ml 100 ML IVPB SCH (22:12)
[2016-05-18 05:42] LABS: ARTERIAL BLOOD GAS HCO3 19.2 mmol/L (21-28); ARTERIAL BLOOD GAS O2 CAPACITY 13.8 mL/dl (16-24); ARTERIAL BLOOD GAS O2 CONTENT 13.7 ML/dl (15-23); ARTERIAL BLOOD HGB O2 SAT 96.7 % (95.0-98.0); HHB 0.4 % (0-5); METHEMOGLOBIN 0.9 % (0.0-3.0)
[2016-05-18] MEDS: metroNIDAZOLE IV 500 mg/100 ml 100 ML IVPB SCH (06:11)
[2016-05-18 07:12] LABS: HEMATOCRIT 24.9 % (42.0-52.0); MEAN CELL VOLUME 85.6 fL (80.0-105.0); MEAN CORPUSCULAR HEMOGLOBIN 28.5 pg (25.0-35.0); MEAN CORPUSCULAR HGB CONC 33.3 g/dl (31.0-37.0); MEAN PLATELET VOLUME 10.8 fl (7.0-11.0); WHITE BLOOD COUNT 16.7 10^3/ul (4.5-11.0)
--- NOTE | 2016-05-18 07:42 | CP.PCM.PN ---
Subjective - Date & Time of Evaluation Date of Evaluation: 05/18/16 Time of Evaluation: 06:30 - Subjective Subjective: Pt seen and evaluated at bedside. Pt is intubated and sedated. Pt is on mechanical ventilator and is afebrile overnight. Currently not responsive. Objective - Vital Signs/Intake and Output Vital Signs (last 24 hours): Temp Pulse Resp BP Pulse Ox 99.1 F 111 H 23 116/73 97 05/18/16 04:00 05/18/16 05:30 05/17/16 17:47 05/18/16 05:30 05/18/16 05:30 Intake and Output: 05/18/16 05/18/16 06:59 18:59 Intake Total 700 Output Total 250 Balance 450 - Medications Medications: Current Medications Acetaminophen (Tylenol 650 Mg Supp) 650 mg RC Q6H PRN PRN Reason: Fever >100.4 F Albuterol/Ipratropium (Duoneb 3 Mg/0.5 Mg (3 Ml) Ud) 3 ml IH [id number] PRN PRN Reason: Shortness Of Breath Last Admin: 05/15/16 07:28 Dose: 3 ml Propofol (Diprivan) 100 mls @ 3.55 mls/hr IV .Q24H PRN; Protocol; 5 MCG/KG/MIN PRN Reason: TITRATE PER MD ORDER Last Titration: 05/18/16 07:02 Dose: 10 mcg/kg/min Norepinephrine Bitartrate 4 mg (/ Sodium Chloride) 254 mls @ 15.24 mls/hr IV .[id number] PRN; Protocol; 4 MCG/MIN PRN Reason: TITRATE PER MD ORDER Last Titration: 05/18/16 04:46 Dose: 5 mcg/min Daptomycin 730 mg/ Sodium (Chloride) 100 mls @ 200 mls/hr IV Q48H WIL PRN Reason: Protocol Stop: 05/28/16 10:29 Meropenem 500 mg/ Sodium (Chloride) 100 mls @ 100 mls/hr IVPB Q12 WIL PRN Reason: Protocol Stop: 05/22/16 10:01 Last Admin: 05/17/16 22:13 Dose: 100 mls/hr Metronidazole (Flagyl) 100 mls @ 100 mls/hr IVPB Q8 WIL PRN Reason: Protocol Stop: 05/24/16 22:01 Last Admin: 05/18/16 06:11 Dose: 100 mls/hr Insulin Human Lispro (Humalog Low) 0 units SC ACHS WIL PRN Reason: Protocol Last Admin: 05/17/16 22:17 Dose: Not Given Lorazepam (Ativan) 2 mg IVP Q6H PRN; Protocol PRN Reason: Anxiety Pantoprazole Sodium (Protonix Inj) 40 mg IVP Q12 WIL Last Admin: 05/17/16 22:13 Dose: 40 mg - Labs Labs: 05/18/16 06:45 05/17/16 06:00 PT 11.4 Seconds (9.9-11.8) 05/08/16 08:30 INR 1.06 (0.93-1.08) 05/08/16 08:30 APTT 40.4 Seconds (23.7-30.8) H 05/13/16 06:00 - Additional Findings Additional findings: - Head Exam Head Exam: ATRAUMATIC - ENT Exam ENT Exam: Mucous Membranes Moist - Respiratory Exam Respiratory Exam: Decreased Breath Sounds - Cardiovascular Exam Cardiovascular Exam: Tachycardia - GI/Abdominal Exam GI & Abdominal Exam: absent: Tenderness - Extremities Exam Extremities Exam: Pedal Edema - Neurological Exam Neurological Exam: absent: Alert, Awake Assessment and Plan - Assessment and Plan (Free Text) Plan: 65M presents with bacteremia possibly to be 2/2 portacath -Tentative plan for trach placement on Saturday, to speak to family. -cont current medical management Further recs to be discussed with Dr. Erik Hi, PGY1
[2016-05-18 08:09] LABS: ALB/GLOB RATIO 0.6 (1.1-1.8); BILIRUBIN,TOTAL 0.9 mg/dL (0.2-1.3); MAGNESIUM 1.8 mg/dL (1.7-2.2); POTASSIUM 4.1 mmol/L (3.6-5.0); TOTAL PROTEIN 6.5 g/dL (5.8-8.3)
[2016-05-18] MEDS: Insulin Lispro (humaLOG) LOW Coverage SC SCH ×2 (08:14→11:23)
[2016-05-18 08:23] LABS: PHOSPHOROUS 9.6 mg/dL (2.5-4.5)
[2016-05-18 08:43] LABS: CALCIUM 6.1 mg/dL (8.4-10.5)
--- NOTE | 2016-05-18 08:51 | CP.PCM.PN ---
<Kristian Jeffrey - Last Filed: 05/18/16 08:44> Subjective - Date & Time of Evaluation Date of Evaluation: 05/18/16 Time of Evaluation: 08:30 - Subjective Subjective: PGY4 GI Fellow Progress Note Patient seen and examined bedside this morning. The patient remains intubated, sedated. No events overnight. Got platlet transfusion late yesterday. No melena noted by staff. 12 system ROS cannot be performed given clinical condition. Objective - Vital Signs/Intake and Output Vital Signs (last 24 hours): Temp Pulse Resp BP Pulse Ox 99.1 F 102 H 29 H 115/56 L 97 05/18/16 04:00 05/18/16 08:13 05/18/16 08:13 05/18/16 08:13 05/18/16 08:13 Intake and Output: 05/18/16 05/18/16 06:59 18:59 Intake Total 700 Output Total 250 Balance 450 - Medications Medications: Current Medications Acetaminophen (Tylenol 650 Mg Supp) 650 mg RC Q6H PRN PRN Reason: Fever >100.4 F Albuterol/Ipratropium (Duoneb 3 Mg/0.5 Mg (3 Ml) Ud) 3 ml IH [id number] PRN PRN Reason: Shortness Of Breath Last Admin: 05/15/16 07:28 Dose: 3 ml Propofol (Diprivan) 100 mls @ 3.55 mls/hr IV .Q24H PRN; Protocol; 5 MCG/KG/MIN PRN Reason: TITRATE PER MD ORDER Last Titration: 05/18/16 07:02 Dose: 10 mcg/kg/min Norepinephrine Bitartrate 4 mg (/ Sodium Chloride) 254 mls @ 15.24 mls/hr IV .[id number] PRN; Protocol; 4 MCG/MIN PRN Reason: TITRATE PER MD ORDER Last Titration: 05/18/16 04:46 Dose: 5 mcg/min Daptomycin 730 mg/ Sodium (Chloride) 100 mls @ 200 mls/hr IV Q48H WIL PRN Reason: Protocol Stop: 05/28/16 10:29 Meropenem 500 mg/ Sodium (Chloride) 100 mls @ 100 mls/hr IVPB Q12 WIL PRN Reason: Protocol Stop: 05/22/16 10:01 Last Admin: 05/17/16 22:13 Dose: 100 mls/hr Metronidazole (Flagyl) 100 mls @ 100 mls/hr IVPB Q8 WIL PRN Reason: Protocol Stop: 05/24/16 22:01 Last Admin: 05/18/16 06:11 Dose: 100 mls/hr Insulin Human Lispro (Humalog Low) 0 units SC ACHS WIL PRN Reason: Protocol Last Admin: 05/18/16 08:14 Dose: Not Given Lorazepam (Ativan) 2 mg IVP Q6H PRN; Protocol PRN Reason: Anxiety Pantoprazole Sodium (Protonix Inj) 40 mg IVP Q12 [facility] Last Admin: 05/17/16 22:13 Dose: 40 mg - Labs Labs: 05/18/16 06:45 05/18/16 06:45 PT 11.4 Seconds (9.9-11.8) 05/08/16 08:30 INR 1.06 (0.93-1.08) 05/08/16 08:30 APTT 40.4 Seconds (23.7-30.8) H 05/13/16 06:00 - Constitutional Appears: Chronically Ill, Other (intubated, sedated) - Eye Exam Eye Exam: PERRL - ENT Exam ENT Exam: Mucous Membranes Dry - Respiratory Exam Respiratory Exam: Rales, Rhonchi, Wheezes. absent: Clear to Ausculation Bilateral - Cardiovascular Exam Cardiovascular Exam: Tachycardia, REGULAR RHYTHM, +S1, +S2 - GI/Abdominal Exam GI & Abdominal Exam: Distended, Firm, Hypoactive Bowel Sounds. absent: Guarding , Rigid, Tenderness, Organomegaly - Extremities Exam Additional comments: B/L 2+ LE Edema - Skin Skin Exam: Dry, Warm Assessment and Plan - Assessment and Plan (Free Text) Assessment: 65 year old male with history of pancreatic cancer, bladder cancer, HTN, DM who was originally admitted with ADILENE, pyelonephritis, sepsis, C. diff. GI reconsulted for concern of upper GI bleed and evaluation for PEG placement -Pancreatic and bladder cancer -Spontaneous bacterial peritonitis -Recurrent ascites s/p paracentesis -Anemia and thrombocytopenia -End-stage renal disease, now on HD -VRE UTI -C diff diarrhea, resolved -HTN -DM Plan: -Bloody/bilious output noted from NGT; pt unstable for EGD and family discussing goals of care, potential to move to hospice care -Protonix 40mg IVP BIDAC -Patient remains on ventilatory support, sedated with propofol, have been unable to wean -Now on HD, nephrology following -The patient has multiple contraindications to PEG placement at this time ( sepsis, peritonitis, recurrent ascites and thrombocytopenia) -Hospice care discussions ongoing with patient's , meeting today with Hospice team -Patient's prognosis is grim given his two malignancies, ongoing sepsis and general deconditioning <Sherif Klein - Last Filed: 05/18/16 12:24> Objective - Vital Signs/Intake and Output Vital Signs (last 24 hours): Temp Pulse Resp BP Pulse Ox 98.8 F 106 H 26 H 111/57 L 98 05/18/16 11:18 05/18/16 11:18 05/18/16 11:18 05/18/16 11:18 05/18/16 11:18 Intake and Output: 05/18/16 05/18/16 06:59 18:59 Intake Total 700 Output Total 250 Balance 450 - Medications Medications: Current Medications Acetaminophen (Tylenol 650 Mg Supp) 650 mg RC Q6H PRN PRN Reason: Fever >100.4 F Albuterol/Ipratropium (Duoneb 3 Mg/0.5 Mg (3 Ml) Ud) 3 ml IH [id number] PRN PRN Reason: Shortness Of Breath Last Admin: 05/15/16 07:28 Dose: 3 ml Propofol (Diprivan) 100 mls @ 3.55 mls/hr IV .Q24H PRN; Protocol; 5 MCG/KG/MIN PRN Reason: TITRATE PER MD ORDER Last Titration: 05/18/16 07:02 Dose: 10 mcg/kg/min Norepinephrine Bitartrate 4 mg (/ Sodium Chloride) 254 mls @ 15.24 mls/hr IV .[id number] PRN; Protocol; 4 MCG/MIN PRN Reason: TITRATE PER MD ORDER Last Titration: 05/18/16 04:46 Dose: 5 mcg/min Daptomycin 730 mg/ Sodium (Chloride) 100 mls @ 200 mls/hr IV Q48H WIL PRN Reason: Protocol Stop: 05/28/16 10:29 Last Admin: 05/18/16 09:44 Dose: 200 mls/hr Meropenem 500 mg/ Sodium (Chloride) 100 mls @ 100 mls/hr IVPB Q12 WIL PRN Reason: Protocol Stop: 05/22/16 10:01 Last Admin: 05/18/16 09:43 Dose: 100 mls/hr Insulin Human Lispro (Humalog Low) 0 units SC ACHS WIL PRN Reason: Protocol Last Admin: 05/18/16 11:23 Dose: Not Given Lorazepam (Ativan) 2 mg IVP Q6H PRN; Protocol PRN Reason: Anxiety Pantoprazole Sodium (Protonix Inj) 40 mg IVP Q12 [facility] Last Admin: 05/18/16 09:45 Dose: 40 mg - Labs Labs: 05/18/16 06:45 05/18/16 06:45 PT 11.4 Seconds (9.9-11.8) 05/08/16 08:30 INR 1.06 (0.93-1.08) 05/08/16 08:30 APTT 40.4 Seconds (23.7-30.8) H 05/13/16 06:00 Attending/Attestation - Attestation I have personally seen and examined this patient.: Yes I have fully participated in the care of the patient.: Yes I have reviewed all pertinent clinical information, including history, physical exam and plan: Yes Notes (Text): 05/18/16 12:15 I have seen and examined patient with GI fellow. Patient remains intubated, sedated in critical care unit. Bloody output noted via NGT, though no reported melena or hematochezia. Pancreatic and bladder cancer s/p chemotherapy HTN / DM C-difficile colitis Acute renal insufficiency, dialysis initiated during hospitalization Ascites (etiology unclear, though likely related to underlying malignancy), +SBP Anemia Thrombocytopenia VRE UTI - Overall patient prognosis is quite poor and therefore precludes any endoscopic intervention as risks of procedure far outweigh any potential benefits in this clinical scenario - Continue with supportive care - Continue with PPI - Monitor H/H and transfuse as necessary - No role for PEG placement given ascites and SBP which represent gross contraindications for procedure - Patient family members considering terminal extubation today after speaking with palliative care team - No further planned GI interventions, will sign off case. Please reconsult as necessary, thank you.
--- NOTE | 2016-05-18 09:05 | PN ---
DATE: 05/18/2016(630am--715am) SUBJECTIVE: The patient remains on the ventilator. He is currently very lethargic and not sedated (discussed with nurse). PHYSICAL EXAMINATION: VITAL SIGNS: Temperature is 99.1, pulse 111, respirations 16/14, blood pressure 116/73. HEENT: Normocephalic, atraumatic. No JVD. CARDIOVASCULAR: Systolic ejection murmur at the lower left sternal border. Questionable S3 gallop. LUNGS: Decreased breath sounds at the bases with minimal crackles. Minimal rhonchi. No wheezing. EXTREMITIES: Positive for edema. No cyanosis, no clubbing. GASTROINTESTINAL: Abdomen is soft. It remains very distended. Bowel sounds are positive. SKIN: No acute rash. NEUROLOGIC: Limited at the present time. PERTINENT LABORATORY DATA: Chest x-ray was done and reviewed. It is not significantly changed from the previous film. Arterial blood gas was done on assist control 14, tidal volume 400, FiO2 60%. Results are: pH 7.30, pCO2 of 39, pO2 of 127. IMPRESSION: 1. Respiratory failure. 2. Klebsiella sepsis. 3. Severe cystitis. 4. Severe anemia. 5. Advanced pancreatic cancer. Positive ascites. 6. Bladder cancer. 7. Worsening renal dysfunction. PLAN: The patient remains in the ICU. He remains on the ventilator. He is currently very lethargic and not sedated (discussed with nurse). I did review the x-ray as above. The x-ray is not significantly changed from the previous film. I have also reviewed the arterial blood gas. The arterial blood gas is somewhat improved this morning -- with less acidosis and less alveolar-arterial gradient. I will continue with the current ventilator settings for now. Again , I did discuss the case with the night nurse at length. Apparently, Dr. Olivia (interventional radiology) discussed the case with the family--in reference to possible paracentesis. Dr. Olivia has no plans for additional procedures at this point. The patient remains with significant ascites and possible right pleural effusion. I would continue with the renal evaluation as per Dr. Shahid. His input is noted. I have also reviewed the note by Reyna Miller (palliative care). The patient is for possible terminal extubation in the near future. For now, I would continue with the antibiotic coverage as per infectious disease. Cardiology and GI evaluations are also noted. Overall status/prognosis of this patient remains extremely poor. I will discuss the above with the entire ICU team in the next few moments. I will also discuss the above with Dr. Dorsey. Kenroy Lino MD cc: [id number] TT: 05/18/2016 09:04:42 Confirmation # [id number] Dictation # [id number] MTDD
[2016-05-18] MEDS: Meropenem 500 MG in Sodium Chloride 0.9% 100 ML IVPB SCH (09:43)
--- NOTE | 2016-05-18 10:00 | CP.PCM.PN ---
Subjective - Date & Time of Evaluation Date of Evaluation: 05/18/16 Time of Evaluation: 08:50 - Subjective Subjective: Patient continues to be intubated and sedated; no fevers overnight, stools are loose but formed now. Had dialysis yesterday. Objective - Vital Signs/Intake and Output Vital Signs (last 24 hours): Temp Pulse Resp BP Pulse Ox 99.1 F 102 H 29 H 115/56 L 97 05/18/16 04:00 05/18/16 08:13 05/18/16 08:13 05/18/16 08:13 05/18/16 08:13 Intake and Output: 05/18/16 05/18/16 06:59 18:59 Intake Total 700 Output Total 250 Balance 450 - Medications Medications: Current Medications Acetaminophen (Tylenol 650 Mg Supp) 650 mg RC Q6H PRN PRN Reason: Fever >100.4 F Albuterol/Ipratropium (Duoneb 3 Mg/0.5 Mg (3 Ml) Ud) 3 ml IH [id number] PRN PRN Reason: Shortness Of Breath Last Admin: 05/15/16 07:28 Dose: 3 ml Propofol (Diprivan) 100 mls @ 3.55 mls/hr IV .Q24H PRN; Protocol; 5 MCG/KG/MIN PRN Reason: TITRATE PER MD ORDER Last Titration: 05/18/16 07:02 Dose: 10 mcg/kg/min Norepinephrine Bitartrate 4 mg (/ Sodium Chloride) 254 mls @ 15.24 mls/hr IV .[id number] PRN; Protocol; 4 MCG/MIN PRN Reason: TITRATE PER MD ORDER Last Titration: 05/18/16 04:46 Dose: 5 mcg/min Daptomycin 730 mg/ Sodium (Chloride) 100 mls @ 200 mls/hr IV Q48H WIL PRN Reason: Protocol Stop: 05/28/16 10:29 Meropenem 500 mg/ Sodium (Chloride) 100 mls @ 100 mls/hr IVPB Q12 WIL PRN Reason: Protocol Stop: 05/22/16 10:01 Last Admin: 05/17/16 22:13 Dose: 100 mls/hr Metronidazole (Flagyl) 100 mls @ 100 mls/hr IVPB Q8 WIL PRN Reason: Protocol Stop: 05/24/16 22:01 Last Admin: 05/18/16 06:11 Dose: 100 mls/hr Insulin Human Lispro (Humalog Low) 0 units SC ACHS WIL PRN Reason: Protocol Last Admin: 05/18/16 08:14 Dose: Not Given Lorazepam (Ativan) 2 mg IVP Q6H PRN; Protocol PRN Reason: Anxiety Pantoprazole Sodium (Protonix Inj) 40 mg IVP Q12 [facility] Last Admin: 05/17/16 22:13 Dose: 40 mg - Labs Labs: 05/18/16 06:45 05/18/16 06:45 PT 11.4 Seconds (9.9-11.8) 05/08/16 08:30 INR 1.06 (0.93-1.08) 05/08/16 08:30 APTT 40.4 Seconds (23.7-30.8) H 05/13/16 06:00 - Constitutional Appears: Other (Intubated and sedated, in mild respiratory distress) - Head Exam Head Exam: NORMAL INSPECTION - ENT Exam Additional comments: ET tube and OGT in place - Neck Exam Neck Exam: absent: Meningismus - Respiratory Exam Respiratory Exam: Decreased Breath Sounds Additional comments: right anterior chest wall port site intact - Cardiovascular Exam Cardiovascular Exam: +S1, +S2 - GI/Abdominal Exam GI & Abdominal Exam: Distended, Firm. absent: Guarding, Rigid, Tenderness, Rebound - Extremities Exam Additional comments: right femoral HD catheter and central venous catheter in place; intact Assessment and Plan - Assessment and Plan (Free Text) Plan: Assessment Severe sepsis with acute renal failure and hypoxic respiratory failure ( intubated and on the ventilator again) with acute encephalopathy probably from uremia, with persistent Klebsiella pneumoniae bacteremia probably from severe cystitis and pyelonephritis, R/O port infection; also with C diff associated diarrhea, clinically improved and S/P treatment; also with patient has new onset fever yesterday and need to rule out new onset sepsis, R/O fungemia Micrococcus species in the 05/04/2016 blood cx from the port, which is probably a contaminant (1 out of 4 bottles, and it is unlike other coagulase negative staph ) acute anemia Pancreatic cancer S/P chemotherapy and radiation therapy and surgery HTN DM obesity with BMI 34 Plan on Meropenem day 15 from first negative blood cx (04/29, 04/30, 05/01 cx are positive, now the 05/04 cx are negative in terms of the Klebsiella and the repeat on 05/09 is negative) (but day 2 from repeat septic work up from yesterday); we have given one dose of IV Gentamicin and Mycamine yesterday - repeat blood cx from yesterday are negative so far and will follow up final results before considering discontinuation of antibiotics patient has very distended abdomen from ascites and probably worsening his respiratory function - follow up evaluation again for repeat paracentesis (has paracentesis last week with negative cultures) would consider removal of the port because of the persistent Klebsiella bacteremia when feasible - however, currently the patient's family is not consenting to port removal patient is now on intermittent hemodialysis Will continue to follow clinically Overall prognosis continues to be very poor
--- NOTE | 2016-05-18 10:01 | PN ---
DATE: 05/18/2016 The patient is in the intensive care unit on the ventilator. He is failing. He has got bladder canc er, pancreatic cancer. He is in need of dialysis. He got one already. He is intubated. MEDICATIONS: He is currently on Ativan, daptomycin, Diprivan, DuoNeb, insulin, norepinephrine, Amalia nix, Tylenol. PHYSICAL EXAMINATION: VITAL SIGNS: He has a 102 pulse, 115/56 blood pressure, 29 respiratory rate, 97% O2 sat, temperature is 99.1. HEAD: Atraumatic, normocephalic. He is intubated. HEART: Regular rate, tachy. LUNGS: Decreased breath sounds. ABDOMEN: Soft. It is distended. They have taken off a couple times greater than 5000 mL of fluid. He probably needs it again. Belly is distended. EXTREMITIES: Trace edema. LABORATORY DATA: He is having a 16.7 white count, 8.3 hemoglobin, 24.9 hematocrit with 72 platelets. Sodium 132, potassium is 4.1, BUN is 88, creatinine 5.2 on dialysis, calcium is 6.1. It has been r eplaced. Alk phos is 187, total protein 6.5. The is supposed to come in today and talk to Michelle Miller, the palliative care nurse, to possib ly get him on hospice and stop doing procedures and treatment. This is a very grave situation and I am hoping that she will agree for a DNR/DNI and stop all this excessive care at this time. He has got respiratory failure, Klebsiella sepsis, severe cystitis, severe anemia, advanced pancreati c cancer, ascites, bladder cancer, worsening renal function. Melquiades Dorsey DO cc: [id number] TT: 05/18/2016 10:01:27 Confirmation # [id number] Dictation # [id number] tn
--- NOTE | 2016-05-18 10:57 | RAD ---
HISTORY: ETT COMPARISON: 05/17/2016 FINDINGS: Endotracheal tube terminates 5.5 cm proximal to the corinne. The right IJV line terminates at the cavoatrial junction. The nasogastric tube terminates in the stomach. . LUNGS: There is redemonstration of elevation of the right hemidiaphragm with low lung volume on the right. The left lung is clear. PLEURA: No significant pleural effusion identified, no pneumothorax apparent. CARDIOVASCULAR: Normal. OSSEOUS STRUCTURES: No significant abnormalities. VISUALIZED UPPER ABDOMEN: Normal. OTHER FINDINGS: None. IMPRESSION: No significant interval change in presumable elevated right hemidiaphragm with low lung volume on the right. Clear left lung.
[2016-05-18 11:20] VITALS: TEMP 98.8
--- NOTE | 2016-05-18 13:12 | CP.CCUPN ---
CCU Subjective - Physician Review Events Since Last Encounter (Free Text): 05/18/16 12:54 No acute events overnight Remains intubated with poor mental status. Levophed started to maintain MAP> 65 Critical Care Time Spent (in minutes): 55 CCU Objective - Vital Signs / Intake & Output Vital Signs (Last 4 hours): Vital Signs Temp Pulse Resp BP Pulse Ox 05/18/16 11:18 98.8 F 106 H 26 H 111/57 L 98 05/18/16 11:00 102 H 05/18/16 10:15 111/64 05/18/16 10:14 108 H 98 05/18/16 10:00 106 H 100/64 98 05/18/16 09:58 25 H 104/59 L 104 H 05/18/16 09:45 103 H 106/56 L 98 05/18/16 09:30 99 H 105/57 L 98 05/18/16 09:15 105 H 107/61 98 05/18/16 09:00 104 H 102/60 98 Intake and Output (Last 8hrs): Intake & Output 05/17/16 05/18/16 05/18/16 22:59 06:59 14:59 Intake Total 1190 700 Output Total 520 250 Balance 670 450 Weight 274 lb Intake: IV 884 700 Right Subclavian 700 Right Femoral 884 Oral 0 Blood Product 296 Apheresis Plts Acda Lr 296 2nd Con Unit [id number] Other 10 Apheresis Plts Acda Lr 10 2nd Con Unit [id number] Output: Gastric Amount 520 250 Nares 520 250 Urine 0 Urethral (Beard) 0 Other: Voiding Method Indwelling Catheter Indwelling Catheter # Bowel Movements 1 1 - Physical Exam Head: Positive for: Atraumatic, Normocephalic Pupils: Positive for: PERRL Extroacular Muscles: Positive for: EOMI Conjunctiva: Positive for: Normal Ears: Positive for: Normal. Negative for: Erythema Mouth: Positive for: Moist Mucous Membranes (ETT in place ) Pharnyx: Positive for: Normal Neck: Positive for: Normal Range of Motion. Negative for: JVD Respiratory/Chest: Positive for: Respiratory Distress, Decreased Breath Sounds, Other (Intubated. 60% fio2 ). Negative for: Accessory Muscle Use, Rales, Rhonchi Cardiovascular: Positive for: Regular Rate and Rhythm, Normal S1, S2, Tachycardic Abdomen: Positive for: Distention, Other (Fluids wave ). Negative for: Tenderness, Peritoneal Signs, Rebound, Guarding, Mass/Organomegaly Genitourinary Male: Positive for: Other (Beard in place. 20/24hrs cloudy urine) Back: Positive for: Normal Inspection Upper Extremity: Positive for: Normal Inspection, Edema. Negative for: Cyanosis Lower Extremity: Positive for: Normal Inspection, Edema Neurological: Positive for: CN II-XII Intact Skin: Positive for: Warm, Pale, Other (Chronic venous stasis dermatitis changes to b/l lower extremities). Negative for: Rashes Psychiatric: Positive for: Other (sedated). Negative for: Alert - Medications Active Medications: Active Medications Generic Name Dose Route Start Last Admin Trade Name Freq PRN Reason Stop Dose Admin Acetaminophen 650 mg 05/17/16 07:51 Tylenol 650 Mg Supp RC Q6H PRN Fever >100.4 F Albuterol/Ipratropium 3 ml 05/08/16 09:41 05/15/16 07:28 Duoneb 3 Mg/0.5 Mg (3 Ml) Ud IH 3 ml [id number] PRN Administration Shortness Of Breath Propofol 100 mls @ 3.55 mls/hr 05/15/16 05:58 05/18/16 07:02 Diprivan IV 10 mcg/kg/min .Q24H PRN Titration TITRATE PER MD ORDER Protocol 5 MCG/KG/MIN Norepinephrine Bitartrate 4 mg 254 mls @ 15.24 mls/hr 05/15/16 08:59 05/18/16 04:46 / Sodium Chloride IV 5 mcg/min .[id number] PRN Titration TITRATE PER MD ORDER Protocol 4 MCG/MIN Daptomycin 730 mg/ Sodium 100 mls @ 200 mls/hr 05/18/16 10:00 05/18/16 09:44 Chloride IV 05/28/16 10:29 200 mls/hr Q48H WIL Administration Protocol Meropenem 500 mg/ Sodium 100 mls @ 100 mls/hr 05/17/16 10:00 05/18/16 09:43 Chloride IVPB 05/22/16 10:01 100 mls/hr Q12 WIL Administration Protocol Insulin Human Lispro 0 units 04/29/16 11:30 05/18/16 11:23 Humalog Low SC Not Given ACHS WIL Protocol Lorazepam 2 mg 05/15/16 10:54 Ativan IVP Q6H PRN Anxiety Protocol Pantoprazole Sodium 40 mg 05/17/16 14:00 05/18/16 09:45 Protonix Inj IVP 40 mg Q12 WIL Administration - Patient Studies Lab Studies: Microbiology Studies 05/15/16 10:45 Blood Culture - Preliminary Blood NO GROWTH AFTER 3 DAYS 05/15/16 10:50 Blood Culture - Preliminary Blood NO GROWTH AFTER 3 DAYS 05/17/16 09:00 Blood Culture - Preliminary Blood-Thru Central Line NO GROWTH AFTER 24 HOURS 05/17/16 06:00 Blood Culture - Preliminary Blood-Venous NO GROWTH AFTER 24 HOURS 05/17/16 06:00 Blood Culture - Preliminary Blood-Venous NO GROWTH AFTER 24 HOURS Lab Studies 05/18/16 05/18/16 05/17/16 Range/Units 06:45 05:30 22:07 WBC 16.7 H (4.5-11.0) 10^3/ul RBC 2.91 L (3.5-6.1) 10^6/uL Hgb 8.3 L (14.0-18.0) gm/dL Hct 24.9 L (42.0-52.0) % MCV 85.6 (80.0-105.0) fL MCH 28.5 (25.0-35.0) pg MCHC 33.3 (31.0-37.0) g/dl RDW 17.0 H (11.5-14.5) % Plt Count 72 L (120.0-450.0) 10^3/uL MPV 10.8 (7.0-11.0) fl Gran % (50.0-68.0) % Lymph % (Auto) (22.0-35.0) % Daniels % (Auto) (1.0-6.0) % Eos % (Auto) (1.5-5.0) % Baso % (Auto) (0.0-3.0) % Gran # (1.4-6.5) Lymph # (1.2-3.4) Daniels # (0.1-0.6) Eos # (0.0-0.7) Baso # (0.0-2.0) K/mm3 pCO2 39 (35-45) mm/Hg pO2 127.0 H (80-100) mm/Hg HCO3 19.2 L (21-28) mmol/L ABG pH 7.30 L (7.35-7.45) ABG Total CO2 20.4 L (22-28) mmol.L ABG O2 Saturation 99.6 H (95-98) % ABG O2 Content 13.7 L (15-23) ML/dl ABG Base Excess -6.7 L (-2.0-3.0) mmol/L ABG Hemoglobin 9.9 L (11.7-17.4) g/dL ABG Carboxyhemoglobin 2.0 H (0.5-1.5) % POC ABG HHb (Measured) 0.4 (0-5) % ABG Methemoglobin 0.9 (0.0-3.0) % ABG O2 Capacity 13.8 L (16-24) mL/dl Hgb O2 Saturation 96.7 (95.0-98.0) % FiO2 60.0 % Sodium 133 (132-148) mmol/L Potassium 4.1 (3.6-5.0) mmol/L Chloride 99 (95-110) mmol/L Carbon Dioxide 23 (21-33) mmol/L Anion Gap 15 (10-20) BUN 88 H (7-21) mg/dL Creatinine 5.2 H (0.5-1.4) mg/dL Est GFR ( Amer) 13 Est GFR (Non-Af Amer) 11 POC Glucose (mg/dL) 122 H (65-110) mg/dL Random Glucose 113 H (70-110) mg/dL Calcium 6.1 L* (8.4-10.5) mg/dL Phosphorus 9.6 H (2.5-4.5) mg/dL Magnesium 1.8 (1.7-2.2) mg/dL Total Bilirubin 0.9 (0.2-1.3) mg/dL AST 35 (15-59) U/L ALT 31 (7-56) U/L Alkaline Phosphatase 187 H (38-133) U/L Total Protein 6.5 (5.8-8.3) g/dL Albumin 2.4 L (3.0-4.8) g/dL Globulin 4.1 gm/dL Albumin/Globulin Ratio 0.6 L (1.1-1.8) 05/17/16 05/17/16 05/17/16 Range/Units 19:12 16:18 11:16 WBC 19.7 H (4.5-11.0) 10^3/ul RBC 2.70 L (3.5-6.1) 10^6/uL Hgb 7.9 L (14.0-18.0) gm/dL Hct 23.0 L (42.0-52.0) % MCV 85.2 (80.0-105.0) fL MCH 29.3 (25.0-35.0) pg MCHC 34.3 (31.0-37.0) g/dl RDW 17.0 H (11.5-14.5) % Plt Count 78 L (120.0-450.0) 10^3/uL MPV 10.5 (7.0-11.0) fl Gran % 88.8 H (50.0-68.0) % Lymph % (Auto) 5.9 L (22.0-35.0) % Daniels % (Auto) 4.8 (1.0-6.0) % Eos % (Auto) 0.2 L (1.5-5.0) % Baso % (Auto) 0.3 (0.0-3.0) % Gran # 17.51 H (1.4-6.5) Lymph # 1.2 (1.2-3.4) Daniels # 0.9 H (0.1-0.6) Eos # 0.0 (0.0-0.7) Baso # 0.05 (0.0-2.0) K/mm3 pCO2 (35-45) mm/Hg pO2 (80-100) mm/Hg HCO3 (21-28) mmol/L ABG pH (7.35-7.45) ABG Total CO2 (22-28) mmol.L ABG O2 Saturation (95-98) % ABG O2 Content (15-23) ML/dl ABG Base Excess (-2.0-3.0) mmol/L ABG Hemoglobin (11.7-17.4) g/dL ABG Carboxyhemoglobin (0.5-1.5) % POC ABG HHb (Measured) (0-5) % ABG Methemoglobin (0.0-3.0) % ABG O2 Capacity (16-24) mL/dl Hgb O2 Saturation (95.0-98.0) % FiO2 % Sodium (132-148) mmol/L Potassium (3.6-5.0) mmol/L Chloride (95-110) mmol/L Carbon Dioxide (21-33) mmol/L Anion Gap (10-20) BUN (7-21) mg/dL Creatinine (0.5-1.4) mg/dL Est GFR ( Amer) Est GFR (Non-Af Amer) POC Glucose (mg/dL) 105 90 (65-110) mg/dL Random Glucose (70-110) mg/dL Calcium (8.4-10.5) mg/dL Phosphorus (2.5-4.5) mg/dL Magnesium (1.7-2.2) mg/dL Total Bilirubin (0.2-1.3) mg/dL AST (15-59) U/L ALT (7-56) U/L Alkaline Phosphatase (38-133) U/L Total Protein (5.8-8.3) g/dL Albumin (3.0-4.8) g/dL Globulin gm/dL Albumin/Globulin Ratio (1.1-1.8) 05/17/16/ Range/Units 07:30 21:30 WBC (4.5-11.0) 10^3/ul RBC (3.5-6.1) 10^6/uL Hgb (14.0-18.0) gm/dL Hct (42.0-52.0) % MCV (80.0-105.0) fL MCH (25.0-35.0) pg MCHC (31.0-37.0) g/dl RDW (11.5-14.5) % Plt Count (120.0-450.0) 10^3/uL MPV (7.0-11.0) fl Gran % (50.0-68.0) % Lymph % (Auto) (22.0-35.0) % Daniels % (Auto) (1.0-6.0) % Eos % (Auto) (1.5-5.0) % Baso % (Auto) (0.0-3.0) % Gran # (1.4-6.5) Lymph # (1.2-3.4) Daniels # (0.1-0.6) Eos # (0.0-0.7) Baso # (0.0-2.0) K/mm3 pCO2 (35-45) mm/Hg pO2 (80-100) mm/Hg HCO3 (21-28) mmol/L ABG pH (7.35-7.45) ABG Total CO2 (22-28) mmol.L ABG O2 Saturation (95-98) % ABG O2 Content (15-23) ML/dl ABG Base Excess (-2.0-3.0) mmol/L ABG Hemoglobin (11.7-17.4) g/dL ABG Carboxyhemoglobin (0.5-1.5) % POC ABG HHb (Measured) (0-5) % ABG Methemoglobin (0.0-3.0) % ABG O2 Capacity (16-24) mL/dl Hgb O2 Saturation (95.0-98.0) % FiO2 % Sodium (132-148) mmol/L Potassium (3.6-5.0) mmol/L Chloride (95-110) mmol/L Carbon Dioxide (21-33) mmol/L Anion Gap (10-20) BUN (7-21) mg/dL Creatinine (0.5-1.4) mg/dL Est GFR ( Amer) Est GFR (Non-Af Amer) POC Glucose (mg/dL) 102 86 (65-110) mg/dL Random Glucose (70-110) mg/dL Calcium (8.4-10.5) mg/dL Phosphorus (2.5-4.5) mg/dL Magnesium (1.7-2.2) mg/dL Total Bilirubin (0.2-1.3) mg/dL AST (15-59) U/L ALT (7-56) U/L Alkaline Phosphatase (38-133) U/L Total Protein (5.8-8.3) g/dL Albumin (3.0-4.8) g/dL Globulin gm/dL Albumin/Globulin Ratio (1.1-1.8) Laboratory Results - last 24 hr 05/16/16 05/17/16 05/17/16 21:30 07:30 11:16 WBC RBC Hgb Hct MCV MCH MCHC RDW Plt Count MPV Gran % Lymph % (Auto) Daniels % (Auto) Eos % (Auto) Baso % (Auto) Gran # Lymph # Daniels # Eos # Baso # pCO2 pO2 HCO3 ABG pH ABG Total CO2 ABG O2 Saturation ABG O2 Content ABG Base Excess ABG Hemoglobin ABG Carboxyhemoglobin POC ABG HHb (Measured) ABG Methemoglobin ABG O2 Capacity Hgb O2 Saturation FiO2 Sodium Potassium Chloride Carbon Dioxide Anion Gap BUN Creatinine Est GFR ( Amer) Est GFR (Non-Af Amer) POC Glucose (mg/dL) 86 102 90 Random Glucose Calcium Phosphorus Magnesium Total Bilirubin AST ALT Alkaline Phosphatase Total Protein Albumin Globulin Albumin/Globulin Ratio 05/17/16 05/17/16 05/17/16 16:18 19:12 22:07 WBC 19.7 H RBC 2.70 L Hgb 7.9 L Hct 23.0 L MCV 85.2 MCH 29.3 MCHC 34.3 RDW 17.0 H Plt Count 78 L MPV 10.5 Gran % 88.8 H Lymph % (Auto) 5.9 L Daniels % (Auto) 4.8 Eos % (Auto) 0.2 L Baso % (Auto) 0.3 Gran # 17.51 H Lymph # 1.2 Daniels # 0.9 H Eos # 0.0 Baso # 0.05 pCO2 pO2 HCO3 ABG pH ABG Total CO2 ABG O2 Saturation ABG O2 Content ABG Base Excess ABG Hemoglobin ABG Carboxyhemoglobin POC ABG HHb (Measured) ABG Methemoglobin ABG O2 Capacity Hgb O2 Saturation FiO2 Sodium Potassium Chloride Carbon Dioxide Anion Gap BUN Creatinine Est GFR ( Amer) Est GFR (Non-Af Amer) POC Glucose (mg/dL) 105 122 H Random Glucose Calcium Phosphorus Magnesium Total Bilirubin AST ALT Alkaline Phosphatase Total Protein Albumin Globulin Albumin/Globulin Ratio 05/18/16 05/18/16 05:30 06:45 WBC 16.7 H RBC 2.91 L Hgb 8.3 L Hct 24.9 L MCV 85.6 MCH 28.5 MCHC 33.3 RDW 17.0 H Plt Count 72 L MPV 10.8 Gran % Lymph % (Auto) Daniels % (Auto) Eos % (Auto) Baso % (Auto) Gran # Lymph # Daniels # Eos # Baso # pCO2 39 pO2 127.0 H HCO3 19.2 L ABG pH 7.30 L ABG Total CO2 20.4 L ABG O2 Saturation 99.6 H ABG O2 Content 13.7 L ABG Base Excess -6.7 L ABG Hemoglobin 9.9 L ABG Carboxyhemoglobin 2.0 H POC ABG HHb (Measured) 0.4 ABG Methemoglobin 0.9 ABG O2 Capacity 13.8 L Hgb O2 Saturation 96.7 FiO2 60.0 Sodium 133 Potassium 4.1 Chloride 99 Carbon Dioxide 23 Anion Gap 15 BUN 88 H Creatinine 5.2 H Est GFR ( Amer) 13 Est GFR (Non-Af Amer) 11 POC Glucose (mg/dL) Random Glucose 113 H Calcium 6.1 L* Phosphorus 9.6 H Magnesium 1.8 Total Bilirubin 0.9 AST 35 ALT 31 Alkaline Phosphatase 187 H Total Protein 6.5 Albumin 2.4 L Globulin 4.1 Albumin/Globulin Ratio 0.6 L Fingerstick Blood Sugar Results: 107 Review of Systems - Review of Systems Systems not reviewed;Unavailable: Intubated Critical Care Progress Note - Ventilator Checklist Head of Bed 30 Degrees: Yes Daily Sedation Vacation: Yes Daily Assessment of Readiness to Wean: Yes Daily Spontaneous Breathing Trial: Yes PUD Prophalyxis: Yes DVT Prophylaxis: Yes - Vent Settings MODE:: ASSIST CONTROL - Nutrition Nutrition: Nutrition Category Date Time Status NPO Diet [DIET] Diets 05/15/16 Breakfast Ordered Assessment/Plan - Assessment and Plan (Free Text) Assessment: 65 y/o M w/ Resolving sepsis and respiratory failure Sepsis On Daptomycin and meropenum per I.D on 14 day course C.Diff treatment finished . Vasopressors weaning off, on levophed 5, MAP>65 SBP resolving, but ascites increasing . Hx of Bladder and pancreatic ca, refractory to treatment No further plans per oncology . ADILENE ---> CKD s/p HD x 2. No great improvement in overall prognosis No urine out put thus far . Resolving pyelonepritits on abx Respiratory failure, secondary to mixed metabolic and respiratory causes . On P.S trial this a.m > 90 min . Mental status in question . Palliative care team has spoken to the (POA) and plans are being made to possibly start a terminal extubation this afternoon/ Hospice depending on the timeline. cc time 55 min
[2016-05-18 13:34] VITALS: RESP 29; O2SAT 97
--- NOTE | 2016-05-18 14:07 | PN ---
DATE: 05/18/2016 The patient remains in the intensive care unit. He is currently on a ventilator and being sedated wi th Diprivan; however, when it is weaned, he becomes quite agitated. His is considering terminal ly extubating the patient in light of the fact that he continues to do quite poorly. He did have hem odialysis yesterday, but in light of his overall poor prognosis and her likely withdrawal of care, we will obviously hold off on receiving any more hemodialysis at this time. Please reconsult if needed . Barry Shahid MD cc: [phone] TT: 05/18/2016 14:07:00 Confirmation # [id number] Dictation # [id number] tn
[2016-05-18 14:22] VITALS: BP 104/58; PULSE 118
[2016-05-18] MEDS ORDERED: Morphine PCA 1 mg/ml (25ml) 25 ML IV PRN (14:37)
[2016-05-18] MEDS ORDERED: Morphine 2 mg/ml ISec IVP STA (14:46)
--- NOTE | 2016-05-18 14:57 | CP.PCM.PN ---
Subjective - Date & Time of Evaluation Date of Evaluation: 05/18/16 Time of Evaluation: 15:00 - Subjective Subjective: Lethargic, responding to verbal stimuli. Intubated, Objective - Vital Signs/Intake and Output Vital Signs (last 24 hours): Temp Pulse Resp BP Pulse Ox 98.8 F 118 H 29 H 104/58 L 97 05/18/16 11:18 05/18/16 14:21 05/18/16 14:21 05/18/16 14:21 05/18/16 14:21 Intake and Output: 05/18/16 05/18/16 06:59 18:59 Intake Total 700 Output Total 250 Balance 450 - Medications Medications: Current Medications Acetaminophen (Tylenol 650 Mg Supp) 650 mg RC Q6H PRN PRN Reason: Fever >100.4 F Albuterol/Ipratropium (Duoneb 3 Mg/0.5 Mg (3 Ml) Ud) 3 ml IH [id number] PRN PRN Reason: Shortness Of Breath Last Admin: 05/15/16 07:28 Dose: 3 ml Propofol (Diprivan) 100 mls @ 3.55 mls/hr IV .Q24H PRN; Protocol; 5 MCG/KG/MIN PRN Reason: TITRATE PER MD ORDER Last Titration: 05/18/16 07:02 Dose: 10 mcg/kg/min Norepinephrine Bitartrate 4 mg (/ Sodium Chloride) 254 mls @ 15.24 mls/hr IV .[id number] PRN; Protocol; 4 MCG/MIN PRN Reason: TITRATE PER MD ORDER Last Titration: 05/18/16 04:46 Dose: 5 mcg/min Daptomycin 730 mg/ Sodium (Chloride) 100 mls @ 200 mls/hr IV Q48H WIL PRN Reason: Protocol Stop: 05/28/16 10:29 Last Admin: 05/18/16 09:44 Dose: 200 mls/hr Meropenem 500 mg/ Sodium (Chloride) 100 mls @ 100 mls/hr IVPB Q12 WIL PRN Reason: Protocol Stop: 05/22/16 10:01 Last Admin: 05/18/16 09:43 Dose: 100 mls/hr Morphine Sulfate (Morphine Expediter Clerk 1 Mg/Ml) 25 mls @ 2 mls/hr IV PRN PRN; Protocol ; 2 MG/HR PRN Reason: IT NETWORK ADMINISTRATOR PER MD ORDER Insulin Human Lispro (Humalog Low) 0 units SC ACHS WIL PRN Reason: Protocol Last Admin: 05/18/16 11:23 Dose: Not Given Lorazepam (Ativan) 2 mg IVP Q6H PRN; Protocol PRN Reason: Anxiety Pantoprazole Sodium (Protonix Inj) 40 mg IVP Q12 [facility] [place] Last Admin: 05/18/16 09:45 Dose: 40 mg - Labs Labs: 05/18/16 06:45 05/18/16 06:45 PT 11.4 Seconds (9.9-11.8) 05/08/16 08:30 INR 1.06 (0.93-1.08) 05/08/16 08:30 APTT 40.4 Seconds (23.7-30.8) H 05/13/16 06:00 - Constitutional Appears: Chronically Ill - Eye Exam Eye Exam: Normal appearance, PERRL - Respiratory Exam Respiratory Exam: Decreased Breath Sounds - Cardiovascular Exam Cardiovascular Exam: REGULAR RHYTHM, +S1, +S2 - GI/Abdominal Exam GI & Abdominal Exam: Distended, Firm - Extremities Exam Additional comments: anasarca - Neurological Exam Neurological Exam: Altered - Skin Skin Exam: Dry, Pallor Assessment and Plan - Assessment and Plan (Free Text) Assessment: 65 year old male with pancreatic cancer, bladder cancer, ADILENE, respiratory failure, ascites, sepsis. and family friend at bedside. [facility] business support liaison and I met with and friend. Hospice services explained in detail. Questions answered. is agreeable to initiating hospice care agreeable to DNR/DNI, terminal extubation and withdrawal of life saving interventions. understands the ramifications of her decision, she knows patient is likely to . understands that patient will be receiving of comfort care only. Questions answered. Dr Dorsey notified and is agreeable with plan. Conrad CHRISTIANSON, also spoke with family ad affirmed plan.. Psychosocial support given. Plan: As discussed with Dr Dorsey DNR/DNI Terminal extubation Morphine 2 mg /hr continuous [employer] AD[employer]. Ativan 2mg/ml every 2 hours as needed for agitation Scopolamine transdermal patch Tylenol 650 mg RC as needed for temperature over 100 Discharge to to [facility] services
[2016-05-18] MEDS ORDERED: Scopolamine 1.5 mg/24 hr Patch TD SCH (15:30)
--- NOTE | 2016-05-18 22:32 | US ---
PROCEDURE: Ultrasound guided paracentesis. HISTORY: Malignant ascites. Abdominal pain and distention. Needs paracentesis. PHYSICIAN(S): Horacio Olivia MD. TECHNIQUE: The relative risks and indications for the procedure were explained to the patient's family and informed written consent obtained. Sonography of the abdomen was performed in a supine position. This revealed a moderate amount of non-loculated ascites, greatest in the right lower quadrant. A puncture site was selected and the area was prepped and draped in the usual sterile fashion. 1% Xylocaine was used to anesthetize the skin and soft tissues. A 7 [place] paracentesis catheter was trocared into the right lower quadrantand 8000 cc of slightly turbid yellow fluid aspirated. No labs were sent. IMPRESSION: Ultrasound-guided paracentesis in the right lower quadrant. 8000 cc of fluid were aspirated.
== END 2016-05-18 15:33 | disposition hospice, inpatient (51) | DRG 871 ==
LOC: ED 01:14 → ERH 05:24 → CCU 11:06 → 3RSO 05-04 10:01 → CCU 05-08 12:31
PROVIDERS: ADMIT Family Medicine; ATTEND Family Medicine
PROC: 30233N1 Transfusion of Nonautologous Red Blood Cells into Peripheral Vein, Percutaneous Approach (ICD-10-PCS; 2016-04-29)
PROC: 30233R1 Transfusion of Nonautologous Platelets into Peripheral Vein, Percutaneous Approach (ICD-10-PCS; 2016-05-01)
PROC: 3E0F7GC Introduction of Other Therapeutic Substance into Respiratory Tract, Via Natural or Artificial Opening (ICD-10-PCS; 2016-05-06)
PROC: 5A1945Z Respiratory Ventilation, 24-96 Consecutive Hours (ICD-10-PCS; principal; 2016-05-08)
PROC: 0BH17EZ Insertion of Endotracheal Airway into Trachea, Via Natural or Artificial Opening (ICD-10-PCS; 2016-05-08)
PROC: 5A09557 Assistance with Respiratory Ventilation, Greater than 96 Consecutive Hours, Continuous Positive Airway Pressure (ICD-10-PCS; 2016-05-10)
PROC: 0W9G3ZZ Drainage of Peritoneal Cavity, Percutaneous Approach (ICD-10-PCS; 2016-05-11)
PROC: 06HM33Z Insertion of Infusion Device into Right Femoral Vein, Percutaneous Approach (ICD-10-PCS; 2016-05-15)
PROC: 5A1945Z Respiratory Ventilation, 24-96 Consecutive Hours (ICD-10-PCS; 2016-05-15)
PROC: 0BH17EZ Insertion of Endotracheal Airway into Trachea, Via Natural or Artificial Opening (ICD-10-PCS; 2016-05-15)
PROC: 5A1D00Z (ICD-10-PCS; 2016-05-17)
DX: A41.59 Other Gram-negative sepsis (principal); R65.21 Severe sepsis with septic shock; I21.4 Non-ST elevation (NSTEMI) myocardial infarction; J96.91 Respiratory failure, unspecified with hypoxia; C25.9 Malignant neoplasm of pancreas, unspecified; R57.1 Hypovolemic shock; N17.9 Acute kidney failure, unspecified; G93.49 Other encephalopathy; D61.810 Antineoplastic chemotherapy induced pancytopenia; A04.7 Enterocolitis due to Clostridium difficile; K65.2 Spontaneous bacterial peritonitis; I13.2 Hypertensive heart and chronic kidney disease with heart failure and with stage 5 chronic kidney disease, or end stage renal disease; N18.6 End stage renal disease; E87.4 Mixed disorder of acid-base balance; M62.82 Rhabdomyolysis; N12 Tubulo-interstitial nephritis, not specified as acute or chronic; R18.8 Other ascites; E87.0 Hyperosmolality and hypernatremia; T79.A3XA Traumatic compartment syndrome of abdomen, initial encounter; Z99.11 Dependence on respirator [ventilator] status; E11.22 Type 2 diabetes mellitus with diabetic chronic kidney disease; D69.59 Other secondary thrombocytopenia; E83.42 Hypomagnesemia; I50.9 Heart failure, unspecified; C67.9 Malignant neoplasm of bladder, unspecified; E66.9 Obesity, unspecified; E78.00 Pure hypercholesterolemia, unspecified; E78.5 Hyperlipidemia, unspecified; E86.0 Dehydration; E87.5 Hyperkalemia; E87.6 Hypokalemia; N30.90 Cystitis, unspecified without hematuria; T45.1X5A Adverse effect of antineoplastic and immunosuppressive drugs, initial encounter; Z68.34 Body mass index [BMI] 34.0-34.9, adult; E83.51 Hypocalcemia; T83.021A Displacement of indwelling urethral catheter, initial encounter; Y84.6 Urinary catheterization as the cause of abnormal reaction of the patient, or of later complication, without mention of misadventure at the time of the procedure; J44.9 Chronic obstructive pulmonary disease, unspecified; E83.52 Hypercalcemia; Z16.21 Resistance to vancomycin; Z66 Do not resuscitate; F10.20 Alcohol dependence, uncomplicated; G89.3 Neoplasm related pain (acute) (chronic); Z92.3 Personal history of irradiation; Z74.01 Bed confinement status; Z78.1 Physical restraint status; Z86.73 Personal history of transient ischemic attack (TIA), and cerebral infarction without residual deficits; Z87.891 Personal history of nicotine dependence

== ENCOUNTER 2016-05-18 15:33 | Inpatient (IN) | payer OTHER ==
[2016-05-18] MEDS ORDERED: Morphine PCA 1 mg/ml (25ml) 25 ML IV PRN (16:46)
[2016-05-18 17:07] VITALS: TEMP 97.6
[2016-05-18 17:34] VITALS: BMI 37.1
--- NOTE | 2016-05-18 22:17 | CP.PCM.PN ---
Subjective - Date & Time of Evaluation Date of Evaluation: 05/18/16 Time of Evaluation: 22:14 - Subjective Subjective: Patient evaluated as informed by the nurse no pulse, and flat line on the tele monitor, patient not breathing, the patient was DNR/DNI and on hospice care. I confirmed above and pronounced patient at 9:45 pm on 05/18/2016. registered in [facility] . PMD will be notified by the nurse, patient's was at the bedside was informed by me about the pronouncement. Objective - Vital Signs/Intake and Output Vital Signs (last 24 hours): Temp Pulse Resp BP Pulse Ox 97.6 F 100 H 19 109/73 99 05/18/16 17:06 05/18/16 17:06 05/18/16 17:34 05/18/16 17:34 05/18/16 17:34 Intake and Output: 05/18/16 05/19/16 18:59 06:59 Output Total 40 Balance -40 - Medications Medications: Current Medications Acetaminophen (Tylenol 650 Mg Supp) 650 mg RC Q4H PRN PRN Reason: Fever >100.4 F Morphine Sulfate (Morphine [place] 1 Mg/Ml) 25 mls @ 2 mls/hr IV PRN PRN; Protocol ; 2 MG/HR PRN Reason: [employer] PER MD ORDER Lorazepam (Ativan) 2 mg IVP Q2H PRN; Protocol PRN Reason: Anxiety Scopolamine (Transderm-Scop) 1 patch TD Q3D WIL
[2016-05-18 23:42] VITALS: BP 52/19; PULSE 92; RESP 5
[2016-05-18 23:44] VITALS: O2SAT 90
[2016-05-21] MEDS ORDERED: Scopolamine 1.5 mg/24 hr Patch TD SCH (16:49)
== END 2016-05-18 21:45 | DRG 871 ==
LOC: CCU 15:33
PROVIDERS: ADMIT Family Medicine; ATTEND Family Medicine
DX: A41.59 Other Gram-negative sepsis (principal); R65.21 Severe sepsis with septic shock; I21.4 Non-ST elevation (NSTEMI) myocardial infarction; I13.2 Hypertensive heart and chronic kidney disease with heart failure and with stage 5 chronic kidney disease, or end stage renal disease; C25.9 Malignant neoplasm of pancreas, unspecified; K65.2 Spontaneous bacterial peritonitis; N18.6 End stage renal disease; Z51.5 Encounter for palliative care; Z66 Do not resuscitate; E11.22 Type 2 diabetes mellitus with diabetic chronic kidney disease; C67.9 Malignant neoplasm of bladder, unspecified; I50.9 Heart failure, unspecified; Z74.01 Bed confinement status